=== PATIENT | female | born 1985 | race Caucasian/White ===

== ENCOUNTER 2023-01-20 11:39 | Outpatient (OUT) | payer MEDICAID, SELFPAY ==
--- NOTE | 2023-01-20 11:49 | US_ITS ---
[facility] [id number] Patient Name: RIVERA OWENS MRN: [id number] date: 1985 Sex: F Assigned Patient Location: LAB Current Patient Location: LAB Accession/Order Number: [id number] Exam Date: 01/20/2023 12:10 Report Date: 01/20/2023 15:07 At the request of: SMILEY URIAS Procedure: US venous doppler LE BI EXAMINATION: US venous doppler LE BI HISTORY: Edema R60.9, Hypomagnesemia E83.42 COMPARISON: No relevant comparison available. FINDINGS: REGION: Bilateral lower extremities THROMBI: None. COMPRESSIBILITY: Normal compressibility. FLOW: Normal waveform and antegrade flow between 5 and 20 cm/s. OTHER: None. US/US venous doppler LE BI IMPRESSION: 1. No deep vein thrombus within the right or left lower extremity. Electronically authenticated by: PASCUAL GAMBLE Date: 01/20/2023 15:07
[2023-01-20 13:10] LABS: Basophils Percent Auto 0.3 % (0.2-2.0); Eosinophils Percent Auto 0.1 % (0.9-7.0); Hematocrit 36.7 % (36.0-48.0); Hemoglobin 11.8 g/dL (12.0-16.0); Immature Granulocytes Abs Auto 0.02 10^3/uL (0.00-0.03); Immature Granulocytes Pct Auto 0.3 % (0.0-0.5); Lymphocytes Percent Auto 28.3 % (20.5-60.0); Mean Corpuscular HGB Conc 32.2 g/dL (29.9-35.2); Mean Corpuscular Hemoglobin 27.9 pg (26.7-34.0); Mean Corpuscular Volume 86.8 fL (81.0-99.0); Mean Platelet Volume 8.4 fL (9.5-13.5); Monocytes Absolute Auto 0.3 10^3/uL (0.3-0.8); Monocytes Percent Auto 4.1 % (1.7-12.0); Neutrophils Absolute Auto 4.8 10^3/uL (1.4-6.5); Neutrophils Percent Auto 66.9 % (43.0-75.0); Platelet Count 381 10^3/uL (150-450); Red Blood Count 4.23 10^6/uL (4.20-5.40); White Blood Count 7.1 10^3/uL (4.0-11.0)
[2023-01-20 14:35] LABS: Alanine Aminotransferase 18 U/L (14-59); Albumin Globulin Ratio 0.7; Albumin Level 3.3 g/dL (3.4-5.0); Alkaline Phosphatase 94 U/L (46-116); Aspartate Amino Transferase 13 U/L (15-37); BUN Creatinine Ratio 19.1; Bilirubin Total 0.1 mg/dL (0.2-1.0); Carbon Dioxide 28.3 mmol/L (21.0-32.0); Chloride 103 mmol/L (98-107); Estimated GFR (African America >60 (>=60); Estimated GFR (Non-African Ame >60 (>=60); Globulin 4.8 g/dL; Glucose 91 mg/dL (74-106); Potassium 4.3 mmol/L (3.5-5.1); Sodium 139 mmol/L (136-145); Total Protein 8.1 g/dL (6.4-8.2)
[2023-01-20 14:49] LABS: Estimated Average Glucose 117 mg/dL; Glycohemoglobin A1C 5.7 % (4.5-6.2)
[2023-01-20 14:51] LABS: Cholesterol 158 mg/dL (<=200); Free T3 2.12 pg/mL (2.18-3.98); HDL Cholesterol 53 mg/dL (40-60); Magnesium 2.1 mg/dL (1.8-2.4); Thyroid Stimulating Hormone 0.677 uIU/mL (0.358-3.740); Triglycerides 55 mg/dL (<=150)
[2023-01-21 11:23] LABS: Insulin 21.8 uIU/mL (2.6-24.9)
== END 2023-01-20 11:40 | disposition home or self-care (01) ==
LOC: LAB 11:43
PROVIDERS: PCP Family Medicine; Visit Provider Family Medicine
DX: E83.42 Hypomagnesemia (principal); R60.9 Edema, unspecified; L40.9 Psoriasis, unspecified; I10 Essential (primary) hypertension; R73.09 Other abnormal glucose
CPT/HCPCS: 36415; 80053; 80061; 83036; 83525; 83540; 83735; 83880; 84436; 84443; 84481; 85025; 93970

== ENCOUNTER 2023-03-06 12:54 | Outpatient (OUT) | payer MEDICAID, SELFPAY ==
[2023-03-06 13:39] LABS: Basophils Percent Auto 0.3 % (0.2-2.0); Eosinophils Absolute Auto 0.1 10^3/uL (0.0-0.7); Eosinophils Percent Auto 1.1 % (0.9-7.0); Hematocrit 39.8 % (36.0-48.0); Hemoglobin 12.9 g/dL (12.0-16.0); Immature Granulocytes Abs Auto 0.01 10^3/uL (0.00-0.03); Immature Granulocytes Pct Auto 0.2 % (0.0-0.5); Mean Corpuscular HGB Conc 32.4 g/dL (29.9-35.2); Mean Corpuscular Hemoglobin 28.8 pg (26.7-34.0); Mean Corpuscular Volume 88.8 fL (81.0-99.0); Mean Platelet Volume 8.3 fL (9.5-13.5); Monocytes Absolute Auto 0.4 10^3/uL (0.3-0.8); Monocytes Percent Auto 6.3 % (1.7-12.0); Neutrophils Absolute Auto 3.7 10^3/uL (1.4-6.5); Neutrophils Percent Auto 59.1 % (43.0-75.0); Platelet Count 288 10^3/uL (150-450); Red Blood Count 4.48 10^6/uL (4.20-5.40); Red Cell Distribution Width 12.6 % (11.0-15.0); White Blood Count 6.2 10^3/uL (4.0-11.0)
== END 2023-03-06 12:55 | disposition home or self-care (01) ==
LOC: LAB 12:56
PROVIDERS: PCP Family Medicine; Visit Provider Family Medicine
DX: E61.1 Iron deficiency (principal)
CPT/HCPCS: 36415; 82728; 83540; 85025

== ENCOUNTER 2023-04-27 12:33 | Outpatient (OUT) | payer OTHER, SELFPAY ==
--- NOTE | 2023-04-27 13:39 | PM.CN ---
Consult Note: HPI Data of Consult Patient: new to practice Consult date: 04/27/23 Requesting Physician: Fabián Archer MD Primary Care Provider: Yovani Echosl MD Consult Narrative Reason for consult: headaches Narrative: 37yof who presents for evaluation. 2 year history of headaches following fall at work. has had workup with neurologist, who determined that she had concussion and now has post-concussive symptoms. has tried various nsaids, with some benefit. currently on methadone and xanax. denies adverse med side effects. cc:: CC: Fabián Archer MD Meds Home Medications and Allergies Allergies Allergy/AdvReac Type Severity Reaction Status Date / Time azithromycin Allergy Unknown Verified 04/27/23 13:41 Exam Narrative Exam Narrative: Psych-alert and oriented x 3.? Attentive and appropriate, constitutionally normal, displays normal mood and affect per situation.? There are no obvious deficits in memory, reasoning, or intellect.? Skin-no obvious rashes, bruising, or erythema noted to the patient's area of pain. Extremities-upper extremities are warm with minimal edema and palpable pulses. Cervical- tenderness to palpation noted in the cervical spine and paraspinal musculature.? Pain is elicited with extension, and lateral rotation of the cervical spine.? Range of motion is slightly diminished due to pain. Coordination remains intact.? Gait remains non-antalgic. Assessment and Plan Assessment and Plan (1) Unspecified injury of head, initial encounter: Plan 37yoivan who presents for evaluation. failed physical and medical modalities, as noted. discussed that for her post-concussive symptoms, no block or injection would be warranted. suggested that she could try other conservative measures that she has not tried, including chiropractor, accupuncture, heat, ice, massage. she expressed understanding. medications reviewed. will have her trial gabapentin 300mg tid and celebrex 200mg bid prn. follow up in 6-8 weeks.
== END 2023-04-27 12:34 | disposition home or self-care (01) ==
LOC: PM 12:33
PROVIDERS: PCP Family Medicine; Visit Provider Anesthesiology
DX: S09.90XA Unspecified injury of head, initial encounter (principal)
CPT/HCPCS: G0463

== ENCOUNTER 2023-06-15 13:00 | Outpatient (OUT) | payer OTHER, SELFPAY ==
--- NOTE | 2023-06-15 13:31 | P.CN_ITS ---
Consult Note: HPI Data of Consult Patient: known to practice within the last 3 years Consult date: 06/15/23 Requesting Physician: Fabián Archer MD Primary Care Provider: Yovani Echols MD Consult Narrative Reason for consult: neck pain Narrative: 37yof who presents for assessment. Worsening neck pain that develops into headaches. No imaging available for review. Notes improvement with gabapentin and celebrex. Continues in provider directed home exercise course for >6 weeks. Denies adverse med side effects. cc:: CC: Fabián Archer MD Review of Systems ROS Status of ROS 10 or more systems reviewed and unremark able except as noted in history and below Meds Home Medications and Allergies Home Medications Medication Instructions Recorded Confirmed Type alprazolam 0.5 mg tablet (Xanax) 0.5 mg PO BID 04/27/23 04/27/23 History amitriptyline 25 mg tablet 25 mg PO DAILY 04/27/23 04/27/23 History celecoxib 200 mg capsule (Celebrex) 200 mg PO BID 04/27/23 04/27/23 History gabapentin 300 mg capsule 300 mg PO TID 04/27/23 04/27/23 History lisinopril 20 mg tablet 20 mg PO DAILY 04/27/23 04/27/23 History magnesium 200 mg tablet 400 mg PO DAILY 04/27/23 04/27/23 History methadone 10 mg/mL oral 50 mg PO DAILY 04/27/23 04/27/23 History concentrate (Methadose) potassium 20 meq PO BEDTIME 04/27/23 04/27/23 History ferrous sulfate 325 mg (65 mg 325 mg PO DAILY 06/15/23 06/15/23 History iron) tablet (Feosol) Allergies Allergy/AdvReac Type Severity Reaction Status Date / Time azithromycin Allergy Unknown Verified 04/27/23 13:41 Exam Narrative Exam Narrative: Psych-alert and oriented x 3.? Attentive and appropriate, constitutionally normal, displays normal mood and affect per situation.? There are no obvious deficits in memory, reasoning, or intellect.? Skin-no obvious rashes, bruising, or erythema noted to the patient's area of pain. Extremities-upper extremities are warm with minimal edema and palpable pulses. Cervical- tenderness to palpation noted in the cervical spine and paraspinal musculature.? Pain is elicited with extension, and lateral rotation of the cervical spine.? Range of motion is slightly diminished due to pain. Facet loading maneuvers are positive bilaterally.? Coordination remains intact.? Gait remains non-antalgic. Assessment and Plan Assessment and Plan (1) Cervicalgia: Plan 37yof who presents for assessment. Failed conservative measures. Will have her undergo cervical XR to assess initially. She is in agreement. She also is planning to start with chiropractor. Medications reviewed, no changes at this time. Follow up in 4 weeks.
== END 2023-06-15 13:01 | disposition home or self-care (01) ==
LOC: PM 13:00
PROVIDERS: PCP Family Medicine; Visit Provider Anesthesiology
DX: M54.2 Cervicalgia (principal)
CPT/HCPCS: G0463

== ENCOUNTER 2023-07-02 10:49 | Outpatient (OUT) | payer OTHER, SELFPAY ==
--- OUTSIDE RECORDS SUMMARY | 2023-07-02 10:56 | XMS_ITS | CCD ---
Author Name Unknown Address [address] [place] [address] Organization [facility] Care Team Providers Care Speech Language Therapist Name Role Phone VILLEGASEDSON PLASCENCIA Unavailable Unavailab SMILEY Dawkins Unavailable Unavailable PROVIDER, UNKNOWN Attending Unavailable PROVIDER, UNKNOWN Admitting Unavailable Smiley Urias MD Primary Care Provider [phone] Serafin Bartlett DO Unavailable Rolando Turner DO Unavailable Zehra Holly CNP Unavailable Rolando Turner Unavailable Smiley Urias MD Primary Care Provider [phone] Serafin Bartlett DO Unavailable Rolando Turner DO Unavailable [phone] Zehra Holly CNP Unavailable SMILEY URIAS Referring Unavailable SMILEY URIAS Primary Care Unavailable ANNE MARIE, RUFINO Attending Unavailable ANNE MARIE, RUFINO Admitting Unavailable HEATHER, CHAS Attending Unavailable SMILEY URIAS Primary Care Unavailable SMILEY URIAS Primary Care Unavailable HEATHER, CHAS Referring Unavailable SMILEY URIAS Primary Care Unavailable ZALE, CHAS Referring Unavailable ZALE, CHAS Attending Unavailable NUZHAT ARZOLA Admitting Unavailable BRIDGETT Burgos, DR REIS Primary Care Unavailable NUZHAT ARZOLA Attending Unavailable MAVIS, DR PASCUAL Lo Consulting Unavailable NUZHAT ARZOLA Consulting Unavailable BRIDGETT Burgos, DR REIS Admitting Unavailable BRIDGETT ., DR REIS Attending Unavailable BRIDGETT Burgos, DR REIS Consulting Unavailable BRIDGETT ., DR REIS Primary Care Unavailable ZIEBER, DR PASCUAL Lo Consulting Unavailable HOY ., DR REIS Admitting Unavailable HOY ., DR REIS Attending Unavailable HOY ., DR REIS Consulting Unavailable HOY ., DR REIS Primary Care Unavailable Smiley Calvillo Consulting Unavailable HOY ., DR REIS Admitting Unavailable HOY ., DR REIS Attending Unavailable HOY ., DR REIS Consulting Unavailable HOY ., DR REIS Primary Care Unavailable UPLAND, DR JENNY Barbosa Consulting Unavailable HOY ., DR REIS Admitting Unavailable HOY ., DR REIS Attending Unavailable HOY ., DR REIS Consulting Unavailable HOY ., DR REIS Primary Care Unavailable ZIEBER, DR PASCUAL Lo Consulting Unavailable HOY ., DR REIS Admitting Unavailable HOY ., DR REIS Attending Unavailable HOY ., DR REIS Primary Care Unavailable HOY ., DR REIS Primary Care Unavailable ROLANDO TURNER Admitting Unavailable ROLANDO TURNER Attending Unavailable PRETTY BEST Admitting Unavailable BRIDGETT ., DR REIS Primary Care Unavailable PRETTY BEST Attending Unavailable PRETTY BEST Consulting Unavailable CANDICE PONCE Consulting Unavailable CAROLE PONCE Attending Unavailable JENNY HOLLEY Attending Unavailable JENNY HOLLEY Attending Unavailable PASCUAL URIBE Attending Unavailable EBHEIM, RUFINO Attending Unavailable JENNY HOLLEY Attending Unavailable EBRAHEIM, RUFINO Attending Unavailable MARISA CARTER Attending Unavailable SUMIT BAPTISTE Referring Unavailable PARRISH MCDONOUGH Attending Unavailabl e EBHEIM, RUFINO Referring Unavailable JENNY HOLLEY Admitting Unavailable JENNY HOLLEY Attending Unavailable PASCUAL URIBE Attending Unavailable PASCUAL URIBE Attending Unavailable PASCUAL URIBE Attending Unavailable PASCUAL URIBE Attending Unavailable EBRAHEIM, RUFINO Referring Unavailable EBRAHEIM, RUFINO Referring Unavailable MARISA CARTER Attending Unavailable KHANG BORRERO Referring Unavailable Gianni QUARLES, Fabián Allen Attending Unavailable Gianni QUARLES, Fabián Allen Attending Unavailable Luiz Knight Attending Unavailab Luiz Brennan Admitting Unavailab Smiley Dawkins Primary Care Unavailable Allergies Allergy Classification Reported Allergen(s) Allergy Type Date of Onset Reaction(s) Facility (7 sources) Erythromycin; Translations: [ERYTHROMYCIN] Drug Allergy 2 anaphylaxis [facility] Repository (1 source) Erythromycin Drug Allergy 0 [facility] Repository (1 source) Erythromycin Drug Allergy 1 [facility] Repository (1 source) Erythromycin; Translations: [ERYTHROMYCIN LACTOBIONATE] Drug Allergy 2 [facility] Repository (1 source) ALLERGIES NOT ON FILE; Translations: [ALLERGIES NOT ON FILE] Propensity to adverse reactions (disorder) [facility] Repository (1 source) Azithromycin Drug Allergy 1 [facility] Repository Medications Current Medications Medication Drug Class(es) Dates Sig (Normalized) Sig (Original) Cane - (6 sources) Start: 06-12-2021 Cane - as dire cted May, Active Magnesium (8 sources) Magnesium Active Potassimin (8 sources) Potassimin Activ e Completed/Discontinued Medications Medication Drug Class(es) Dates Sig (Normalized) Sig (Original) ALPRAZolam 0.5 mg oral tablet (15 sources) Benzodiazepine Start: 10-31-2021 take 1 tablet by mouth twice daily as needed for anxiety ALPRAZolam (XANAX) 0.5 mg tablet TAKE 1 TABLET BY ORAL ROUTE 2 TIMES PER DAY NEEDED FOR ANXIETY 0 10/31/2021 Active take 1 tablet by kael th every twelve hours Xanax 1 MG 1 tablet Orally Twice a day Active End: 11-12-2021 take 2 tablets by mouth every eight hours as needed ALPRAZolam (XANAX) 1 mg tablet Take 2 mg by mouth three times daily as needed. 0 11/12/2021 Discontinued Comment on above: Take 2 mg by mouth t hree times daily as needed. TAKE 1 TABLET BY ORA L ROUTE 2 TIMES PER DAY NEEDED FOR ANXIETY amitriptyline hydrochloride 100 mg oral tablet (2 sources) Tricyclic Antidepressant End: 11-12 take 1 tablet by mouth once daily at bedtime amitriptyline (ELAVIL) 100 mg tablet Take 100 mg by mouth daily at bedtime. 0 11/12/2021 Discontinued Comment on above: Take 100 mg by mouth daily at bedtime. carvedilol 25 mg oral tablet (2 sources) alpha-Adrenergic Jose De Jesus, beta-Adrenergic Jose De Jesus Start : 10-06 End: 11-12 take 1 tablet by mouth twice daily carvedilol (COREG) 25 mg tablet Take 1 tablet by mouth twice daily. 180 tablet 3 10/06/2014 11/12/2021 Discontinued Comment on above: Take 1 tablet by kael twice daily. cloNIDine hydrochloride 0.1 mg oral tablet (2 sources) Central alpha-2 Adrenergic Agonist Start : 04-06 End: 11-12 take 1 tablet by mouth three times daily cloNIDine HCl (CATAPRES) 0.1 mg tablet Take 1 tablet by mouth three times daily. 240 tablet 3 04/06/2015 11/12/2021 Discontinued Comment on above: Take 1 tablet by kael three times daily. hydrALAZINE hydrochloride 50 mg oral tablet (2 sources) Arteriolar Vasodilator Start : 10-06 End: 11-12 take 1 tablet by mouth twice daily hydrALAZINE (APRESOLINE) 50 mg tablet Take 1 tablet by mouth twice daily. 180 tablet 3 10/06/2014 11/12/2021 Discontinued Comment on above: Take 1 tablet by kael twice daily. hydroCHLOROthiazide 12.5 mg oral capsule (2 sources) Thiazide Diuretic Start : 05-18 End: 11-12 take 1 capsule by mouth once daily Hydrochlorothiazide 12.5 mg capsule Take 1 capsule by mouth once daily. 30 capsule 5 05/18/2015 11/12/2021 Discontinued Comment on above: Take 1 capsule by mo [facility] once daily. hydroCHLOROthiazide 12.5 mg / irbesartan 300 mg oral tablet (2 sources) Thiazide Diuretic, Angiotensin 2 Receptor Jose De Jesus Start : 10-06 End: 11-12 take 1 tablet by mouth once daily Irbesartan-Hydrochloroth iazide 300-12.5 mg per tablet Take 1 tablet by mouth once daily. 90 tablet 3 10/06/2014 11/12/2021 Discontinued Comment on above: Take 1 tablet by kael once daily. lisinopril 20 mg oral tablet (13 sources) Angiotensin Converting Enzyme Inhibitor Start : 10-30 take 1 tablet by mouth once daily lisinopril (ZESTRIL, PRINIVIL) 20 mg tablet Take 20 mg by mouth once daily. 0 10/30/2021 Active Comment on above: Take 20 mg by mouth once daily. magnesium oxide 400 mg oral tablet (5 sources) Start : 10-30 take 1 tablet by mouth twice daily magnesium oxide (MAG-OX) 400 mg (241.3 mg magnesium) tablet Take 1 tablet by mouth twice daily. 0 10/30/2021 Active Comment on above: Take 1 tablet by kael th twice daily. Methadone (13 sources) Opioid Agonist take 52 mg by mouth once daily Methadone HCl 10 MG/5ML 52mg p.o. qd Active take 52 mg by mouth once daily m ethadone HCl (METHADONE ORAL) Take 52 mg by mouth once daily. 0 Active Methadone HCl Ac tive Comment on above: Take 52 mg by mouth once daily. morphine sulfate 30 mg extended release oral capsule (2 sources) Opioid Agonist End: take 1 capsule by mouth three times daily morphine ER (LUANA) 30 mg 24 hr capsule Take 30 mg by mouth three times daily. 0 11/12/2021 Discontinued Comment on above: Take 30 mg by mouth three times daily. OXcarbazepine 150 mg oral tablet (2 sources) Anti-epileptic Agent End: take 1 tablet by mouth twice daily OXcarbazepine (TRILEPTAL) 150 mg tablet Take 150 mg by mouth twice daily. 0 11/12/2021 Discontinued Comment on above: Take 150 mg by mouth twice daily. oxyCODONE hydrochloride 20 mg oral tablet (2 sources) Opioid Agonist End: take 1 tablet by mouth four times daily oxyCODONE 20 mg tab Take 20 mg by mouth four times daily. 0 11/12/2021 Discontinued Comment on above: Take 20 mg by mouth four times daily. pantoprazole 40 mg delayed release oral tablet (2 sources) Proton Pump Inhibitor End: take 1 tablet by mouth once daily pantoprazole DR (PROTONIX) 40 mg tablet Take 40 mg by mouth once daily. 0 11/12/2021 Discontinued Comment on above: Take 40 mg by mouth once daily. 100 ml potassium chloride 0.2 meq/ml injection (5 sources) potassium chlori de in water 20 mEq/100 mL IVPB Inject 20 mEq intravenously one time only. 0 Active Comment on above: Inject 20 mEq intrav enously one time only. promethazine hydrochloride 25 mg oral tablet (2 sources) Phenothiazine End: take 1 tablet by mouth every six hours as needed promethazine (PHENERGAN) 25 mg tablet Take 25 mg by mouth every 6 hours as needed. 0 11/12/2021 Discontinued Comment on above: Take 25 mg by mouth every 6 hours as needed. spironolactone 50 mg oral tablet (2 sources) Aldosterone Antagonist Start: End: take 1 tablet by mouth once daily spironolactone (ALDACTONE) 50 mg tablet Take 1 tablet by mouth once daily. 90 tablet 3 10/06/2014 11/12/2021 Discontinued Comment on above: Take 1 tablet by kael th once daily. tiZANidine 4 mg oral tablet (2 sources) Central alpha-2 Adrenergic Agonist End: take 1 tablet by mouth every six hours as needed tiZANidine (ZANAFLEX) 4 mg tablet Take 4 mg by mouth every 6 hours as needed. 0 11/12/2021 Discontinued Comment on above: Take 4 mg by mouth e very 6 hours as needed. traMADol hydrochloride 50 mg oral tablet (2 sources) Opioid Agonist End: take 50 mg by mouth four times daily TRAMADOL HCL (TRAMADOL ORAL) Take 50 mg by mouth four times daily. 0 11/12/2021 Discontinued Comment on above: Take 50 mg by mouth four times daily. triamcinolone acetonide 40 mg/ml injectable suspension (2 sources) Corticosteroid Start: Kenalog-40 October, 40 mg Problems Active Problems Problem Classification Problem Date Documented Date Episodic/Chronic Abdominal pain (1 source) Unspecified abdominal pain; Translations: [UNSPECIFIED ABDOMINAL PAIN] Onset: 08-27-2022 Episodic Anxiety disorders (2 sources) Generalized anxiety disorder; Translations: [Anxiety disorder, unspecified] Onset: 08-13-2017 Chronic Disorders of lipid metabolism (1 source) Hyperlipidemia, unspecified; Translations: [HYPERLIPIDEMIA UNSPECIFIED] Onset: 04-23-2022 Chronic Essential hypertension (9 sources) Hypertensive disorder; Translations: [Essential (primary) hypertension] Onset: 04-23-2022 09-29-2014 Chronic Hypertension with complications and secondary hypertension (1 source) Hypertensive urgency; Translations: [HYPERTENSIVE URGENCY] Onset: 04-23-2022 Chronic Malaise and fatigue (6 sources) Fatigue; Translations: [Other fatigue] 09-29-2014 Episodic Mood disorders (1 source) Major depressive disorder, single episode, unspecified; Translations: [MANDEEP DEPRESS D/O SINGLE EPIS UNS] Onset: 09-10-2021 Chronic Other bone disease and musculoskeletal deformities (2 sources) Chondromalacia, left knee; Translations: [Chondromalacia, left knee] Onset: 09-15-2022 Episodic Other congenital anomalies (2 sources) Discoid meniscus; Translations: [Discoid meniscus] Onset: 09-15-2022 Chronic Other connective tissue disease (3 sources) Weakness of right leg; Translations: [Other symptoms and signs involving the musculoskeletal system] Episodic Other connective tissue disease (1 source) Other symptoms and signs involving the musculoskeletal system; Translations: [Right leg weakness] Onset: 01-23-2022 Episodic Other endocrine disorders (6 sources) Adrenal mass; Translations: [Other specified disorders of adrenal gland] Onset: 05-18-2015 05-18-2015 Chronic Other nutritional; endocrine; and metabolic disorders (1 source) Hypomagnesemia; Translations: [HYPOMAGNESEMIA] Onset: 04-23-2022 Chronic Other nutritional; endocrine; and metabolic disorders (2 sources) Obesity, unspecified; Translations: [Obesity, unspecified] Onset: 08-06-2022 Chronic Residual codes; unclassified (6 sources) Obstructive sleep apnea syndrome; Translations: [Obstructive sleep apnea (adult) (pediatric)] 09-29-2014 Chronic Residual codes; unclassified (4 sources) Sleep apnea, unspecified; Translations: [SLEEP APNEA UNSPECIFIED] Onset: 04-18-2022 Chronic Residual codes; unclassified (2 sources) Other specified postprocedural states; Translations: [Other specified postprocedural states] Onset: 02-23-2023 Episodic Unclassified (1 source) Concussion with loss of consciousness status unknown, subsequent encounter; Translations: [Concussion with loss of consciousness status unknown, subsequent encounter] Onset: 04-17-2022 Urinary tract infections (4 sources) Urinary tract infection, site not specified; Translations: [UTI SITE NOT SPECIFIED] Onset: 08-22-2022 Episodic Past or Other Problems Problem Classification Problem Date Documented Date Episodic/Chronic Deficiency and other anemia (1 source) Anemia, unspecified; Translations: [ANEMIA UNSPECIFIED] Onset: 04-23-2022 Episodic Diabetes mellitus without complication (1 source) Other abnormal glucose; Translations: [OTHER ABNORMAL GLUCOSE] Onset: 04-23-2022 Episodic Disorders of teeth and jaw (1 source) Other specified disorders of teeth and supporting structures; Translations: [OTH SPEC DISORDERS TEETH SUPP STRCT] Onset: 09-10-2021 Episodic Intracranial injury (6 sources) Concussion without loss of consciousness, initial encounter; Translations: [Unspecified intracranial injury without loss of consciousness, initial encounter] Onset: 04-01-2022 Episodic Nonmalignant breast conditions (4 sources) Disorder of breast, unspecified; Translations: [DISORDER OF BREAST UNSPECIFIED] Onset: 01-22-2022 Episodic Nonspecific chest pain (11 sources) Other chest pain; Translations: [Chest pain] Onset: 08-13-2017 09-29-2014 Episodic Other aftercare (1 source) Other [facility] (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 therapy; Translations: [OTH [facility] CURRENT DRUG THERAPY] Onset: 09-10-2021 Episodic Other connective tissue disease (1 source) Pain in left arm; Translations: [PAIN IN LEFT ARM] Onset: 04-23-2022 Episodic Other injuries and conditions due to external causes (2 sources) Unspecified injury of head, subsequent encounter; Translations: [Unspecified injury of head, subsequent encounter] Onset: 04-30-2022 Episodic Other injuries and conditions due to external causes (2 sources) Unspecified injury of head, initial encounter; Translations: [Unspecified injury of head, initial encounter] Onset: 04-30-2022 Episodic Other non-traumatic joint disorders (6 sources) Pain in left knee; Translations: [PAIN IN LEFT KNEE] Onset: 01-31-2022 Episodic Other screening for suspected conditions (not mental disorders or infectious disease) (1 source) Encounter for screening for malignant neoplasm of rectum; Translations: [ENC SCREEN MALIG NEOPLASM RECTUM] Onset: 04-23-2022 Episodic Residual codes; unclassified (1 source) Acquired absence of other specified parts of digestive tract; Translations: [ACQ ABSENCE OTH PART DIGESTV TRACT] Onset: 09-10-2021 Episodic Sprains and strains (7 sources) Sprain of unspecified site of right knee, initial encounter; Translations: [Sprain of unspecified site of right knee, subsequent encounter] Onset: 09-18-2021 Resolved: 01-01-2022 Episodic Superficial injury; contusion (8 sources) Contusion of right knee, initial encounter; Translations: [Contusion of right knee, subsequent encounter] Onset: 04-17-2021 Resolved: 01-01-2022 Episodic Unclassified (1 source) Concussion with loss of consciousness status unknown, subsequent encounter; Translations: [Concussion with loss of consciousness status unknown, subsequent encounter] Onset: 04-17-2022 Results Test Name Value Interpretation Reference Range Facility 3603-06-2023 36 I dictated a letter simply stating patient remains off work and will remain off for 1 month . This letter is for [employer] because her children gets medical benefits. Patient was sent the letter. [facility] 3603-05-2023 36 Patient states she received a note for work but she needs a note stating she is off work. Please email if MD writes she states it is for [employer] family [employer] and she states that is what they need. [facility] Follow-Upon 03-04-2023 Follow-Up [id number] Rebecca Jewell 1985 F Date Provider Department Center 03/04/2023 PASCUAL HOPKINS MP PHYS MED Medical [facility]avi No family history on file Level of Service:63546 [place] OFFICE/OUTPATIENT ESTABLISHED LOW MDM 20-29 MIN (GC) Reason for Visit and Comments: Concussion [357203] - [facility] Office Visiton 02-23-2023 Follow-up visit [id number] Rebecca Jewell 1985 F Date Provider Department Center 02/23/2023 JENNY MARAVILLA MP ORTHO MPORTHO No family history on file Level of Service:48473 [place] POSTOP FOLLOW UP VISIT RELATED TO ORIGINAL PX (GC) Reason for Visit and Comments: Pain [136] Follow-up [707454] [facility] Office Visiton 01-12-2023 Follow-up visit [id number] Rebecca Jewell 1985 F Date Provider Department Center 01/12/2023 JENNY MARAVILLA MP ORTHO MPORTHO No family history on file Level of Service:23856 [place] POSTOP FOLLOW UP VISIT RELATED TO ORIGINAL PX (GC) Reason for Visit and Comments: Post-op [483] Normal [facility] Orders Onlyon 01-08-2023 Orders Only [id number] Rebecca Jewell 1985 F Date Provider Department Center 01/08/2023 SHRUTHI TORREZ MP ORTHO MPORTHO No family history on file Normal [facility] OPNOTEon 01-01-2023 OPNOTE KNEE ARTHROSCOPY WIT H PARTILA LATERAL MENISCECTOMY (L), CHONDROPLASTY (L) Operative Note Date: 01/01/2023 Location: [facility] OR Name: Nabila Jewell, : 1985, Diagnosis Pre-op Diagnosis * Discoid meniscus of left knee [Q68.6] Post-op Diagnosis * Discoid meniscus of left knee [Q68.6] Procedures KNEE ARTHROSCOPY WITH PARTILA LATERAL MENISCECTOMY 97825 - [place] ARTHRS KNE SURG W/MENISCECTOMY MED/LAT W/SHVG CHONDROPLASTY Surgeons * Jenny Holley - Primary Procedure Summary Anesthesia: General ASA: III Estimated Blood Loss: 5 mL Total IV Fluids: mL Drains: * None in log * Staff: Selling Underwriter: Kristen Lai RN Scrub Person: Jordan Lucero CST Indications: Nabila Jewell is an 37 y.o. female who is having surgery for Discoid meniscus of left knee [Q68.6]. Procedure Details: The patient was seen in the preoperative area. The risks, benefits, complications, treatment options, non-operative alternatives, expected recovery and outcomes were discussed with the patient. The possibilities of reaction to medication, pulmonary aspiration, injury to surrounding structures, bleeding, recurrent infection, the need for additional procedures, failure to diagnose a condition, and creating a complication requiring transfusion or operation were discussed with the patient. The patient concurred with the proposed plan, giving informed consent. The site of surgery was properly noted/marked if necessary per policy. The patient has been actively warmed in preoperative area. Preoperative antibiotics have been ordered and given within 1 hours of incision. Venous thrombosis prophylaxis have been ordered including unilateral sequential compression device Findings: After confirmation and marking of the left knee in the preoperative holding area, patient was brought back to the operating suite and placed in the supine position. All pressure points were adequately padded. General endotracheal anesthesia was smoothly induced preoperative antibiotics were administered. After observation of a surgical timeout procedure using 2 separate patient identifiers, we began with the case. After sterile prep and draping of the knee we first started with infiltrating the knee itself and the proposed incisions with 20 cc 1% lidocaine with epinephrine. We then created a standard arthroscopy portals. There was synovitis in the medial, lateral compartments. There was synovitis in the patellofemoral compartment. All synovitis was cleared out. A probe was inserted and we began with a diagnostic arthroscopy. We first inspected the medial compartment. We inspected the medial meniscus and the articular cartilage surfaces. Medial meniscus was intact. Cartilage was not intact. There was a grade 2 tear measuring 3 mm. The cartilage was treated with gentle chondroplasty We then inspected the intercondylar notch. The ACL was intact. The PCL was intact. We then inspected the lateral compartment. We inspected the lateral meniscus and the articular cartilage surfaces. Lateral meniscus was not intact. There was a radial tear of the middle body, 3 mm. Cartilage was intact. The meniscus was debrided back to the level of stable tissue. We then inspected the patellofemoral compartment. The patella and trochlea were inspected and the articular cartilage was probed. The patellar cartilage was not intact. There was a grade 2 tear measuring 5 mm. The trochlear cartilage was not intact. There was a grade 2 tear measuring 8 mm. The cartilage was treated with gentle chondroplasty At this point all instruments were removed and the knee was drained of fluid. The portal incisions were closed with simple Steri-Strips. A sterile compressive wrap was applied. Patient was then awakened and extubated and brought back to the PACU in stable condition. I was present scrubbed and actively participating for all mc portions of the surgery. Estimated blood loss is minimal complications are none disposition is to the PACU in stable condition postoperative plan. I will see them back in 10 to 14 days time for suture removal and initiation of physical therapy Complications: None; patient tolerated the procedure well. Disposition: PACU - hemodynamically stable. Condition: stable Jenny Holley Normal [facility] POCT GLUCOSE METER UNSOLICIT ED RESULTSon 01-01-2023 Glucose [Mass/Vol] 93 mg/dL Normal 70-105 [facility] Comment on above: Order Comment: Waive d Testing in the ED is performed under the ED CLIA certificate #[id number]. Result Comment: ngro andrew Performed By: #### L [id number] ####[facility] ([facility])[address] [place] [address] HPon 12-31-2022 HP History Of Present Illness Nabila Jewell is a 37 y.o. female presenting with L knee chondromalacia and tear of discoid LM. Past Medical History She has a past medical history of Adrenal adenoma, Anxiety, Carbuncle of back except buttock, Chronic pain syndrome, Degeneration of intervertebral disc of cervical region, Discoid meniscus of left knee, Dysmenorrhea, Eczema, Fatigue, Furuncle of abdominal wall, Head injury, Hypertension, Non-cardiac chest pain, Obesity, Psoriasis, and Sleep apnea. Surgical History She has a past surgical history that includes Gallbladder surgery; Tympanostomy tube placement (Bilateral); section, classic; Dilation and curettage of uterus; Pilonidal cyst drainage; and Cyst Removal. Social History She reports that she quit smoking about 3 years ago. Her smoking use included cigarettes. She has never used smokeless tobacco. She reports that she does not currently use alcohol. She reports that she does not currently use drugs. Family History No family history on file. Allergies Erythromycin and Erythromycin lactobionate Medications No medications prior to admission. Review of Systems Last Recorded Vitals Visit Vitals OB Status Unknown Smoking Status Former Physical Exam Relevant Lab Results Lab Results Component Value Date CO2 07/27/2019 BUN 14 07/27/2019 CALCIUM 8.9 07/27/2019 EGFR >60 07/27/2019 EGFR >60 07/27/2019 Relevant Imaging Results XR transfer of outside films This order has been auto-finalized and does not contain a result. 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 NO JEWELRY BRING INS AND ID Take the meds we spoke about w/a sip of water DOS: ALL NORMAL AM MEDS ARRIVE AT [facility] Normal [facility] Documentationon 12-09-2022 Documentation [id number] Rebecca Jewell 1985 F Date Provider Department Center 12/09/2022 PARRISH STOVER MP DIETARY Medical Pavi Chart Close Cosign Required by: Samir Mendoza MD[[id number]] No family history on file [facility] 36on 12-03-2022 36 [employer] Cici from [facility] calls to state the last note sent with the [employer] has a statement that patient can work 4 hours per day 20 hours per week but [employer] sent yesterday did not have any thing listed but patient states there were no changes and she is still to be off work. I pulled up [employer] sent in by magazine writer and I had forgotten to check the no changes box. In same note it does state by MD patient is not working and will be evaluated upon next ov. I informed her of the error and she requested I resend with the no changes box checked. Form was reprinted and faxed back. [facility] 36 Patient calls to sta deana her MCO is stating she will need to work 4 hours now and she states she was just in on Thursday and that was not discussed by MD. I informed her that there was no change to the [employer] 14 it was the same as the one completed in September and June this year. She states I didn't think so she will call the [employer] back. [facility] Telephoneon 12-03-2022 Telephone [id number] Rebecca Jewell 1985 Date Provider Department Center 12/03/2022 PASCUAL HOPKINS MP PHYS MED Medical Pavi No family history on file [facility] Follow-Upon 12-01-2022 Follow-Up [id number] Taj Jewellvenancio Esparza 1985 Date Provider Department Center 12/01/2022 PASCUAL HOPKINS MP PHYS MED Medical Pavi No family history on file Level of Service:[id number] [place] OFFICE/OUTPATIENT ESTABLISHED LOW MDM 20-29 MIN (GC) Reason for Visit and Comments: headaches [Other] - [facility] Follow-Upon 09-29-2022 Follow-Up [id number] Taj Jewellvenancio Esparza 1985 F Date Provider Department Center 09/29/2022 PASCUAL HOPKINS MP PHYS MED Medical Pavi No family history on file Level of Service:09616 [place] OFFICE/OUTPATIENT ESTABLISHED LOW MDM 20-29 MIN Reason for Visit and Comments: headaches [Other] Leg Pain [[id number]] - Right Normal [facility] Orders Onlyon 09-29-2022 Orders Only [id number] Taj Jewellvenancio Esparza 1985 F Date Provider Department Center 09/29/2022 PASCUAL HOPKINS MP PHYS MED Medical Pavi No family history on file Normal [facility] Office Visiton 09-15-2022 Follow-up visit [id number] Taj Jewellvenancio Esparza 1985 Provider Department [place] 09/15/2022 JENNY MARAVILLA MP ORTHO MPORTHO No family history on file Level of Service:38522 [place] OFFICE/OUTPATIENT ESTABLISHED MOD MDM 30-39 MIN (57) Reason for Visit and Comments: Pain [136] Normal [facility] CULTURE URINEon 08-22-2022 CULTURE URINE Culture Observations : MODERATE GROWTH OF MIXED GENITAL GISELLE. NO POTENTIAL PATHOGENS SEEN. Normal [facility] [place] [facility] Comment on above: Performed By: #### T SH, LIPID, CMP, URIC, T7, CRP #### [facility] [place] [facility] [address] [place] [address] Dr. Walker Gabriel UA RANDOM W/MICROSCOPICon BACTERIA MODERATE Abnormal NONE SEEN [facility] [place] [facility] Comment on above: Performed By: #### U AMIC #### [facility] [place] [facility] [address] [address] [address] Walker Gabriel Bilirubin Ql (U) Negative Normal NEGATIVE [facility] Comment on above: Performed By: #### U AMIC #### [facility] [place] [facility] [address] [address] [address] Walker Gabriel CAST NONE SEEN Normal NONE SEEN [facility] [place] [facility] Comment on above: Performed By: #### U AMIC #### [facility] [place] [facility] [address] [place] [address] Dr. Walker Gabriel Clarity (U) CLEAR Normal CLEAR [facility] [place] [facility] Comment on above: Performed By: #### U AMIC #### [facility] [place] [facility] [address] [address] [address] Walker Gabriel Color (U) YELLOW Normal YELLOW [facility] Comment on above: Performed By: #### U AMIC #### [facility] [place] [facility] [address] [address] [address] Walker Gabriel Crystals LM Nom (Urine sed) NONE SEEN Normal NONE SEEN [facility] Comment on above: Performed By: #### U AMIC #### [facility] [place] [facility] [address] [address] [address] Walker Gabriel Epithelial cells LM Ql (Urine sed) FEW Abnormal NONE SEEN /RARE [facility] [place] [facility] Comment on above: Performed By: #### U AMIC #### [facility] [place] [facility] [address] [place] [address] Dr. Walker Gabriel Glucose Ql (U) Negative Normal NEGATIVE [facility] Comment on above: Performed By: #### U AMIC #### [facility] [place] [facility] [address] [address] [address] Walker Gabriel Hemoglobin Ql (U) TRACE-LYSED Abnormal NEGATIVE [facility] Comment on above: Performed By: #### U AMIC #### [facility] [place] [facility] [address] [place] [address] Dr. Walker Gabriel Ketones Ql (U) Negative Normal NEGATIVE [facility] Comment on above: Performed By: #### U AMIC #### [facility] [place] [facility] [address] [address] [address] Walker Gabriel LEUKOCYTES Negative Normal NEGATIVE [facility] Comment on above: Performed By: #### U AMIC #### [facility] [place] [facility] [address] [address] [address] Walker Gabriel MUCOUS NONE SEEN Normal NONE SEEN [facility] Comment on above: Performed By: #### U AMIC #### [facility] [place] [facility] [address] [place] [address] Dr. Walker Gabriel Nitrite Ql (U) Negative Normal NEGATIVE [facility] Comment on above: Performed By: #### U AMIC #### [facility] [place] [facility] [address] [place] [address] Dr. Walker Gabriel pH (U) 6.0 [pH] Normal 5-9 [facility] [place] [facility] Comment on above: Performed By: #### U AMIC #### [facility] [place] [facility] [address] [address] [address] Walker Gabriel RBC 0-2 Normal 0-2 [facility] Comment on above: Performed By: #### U AMIC #### [facility] [place] [facility] [address] [place] [address] Dr. Walker Gabriel SPEC GRAVITY >=1.030 Abnormal 1.005-<=1.025 [facility] Comment on above: Performed By: #### U AMIC #### [facility] [place] [facility] [address] [place] [address] Dr. Walker Gabriel UA PROTEIN Negative Normal NEGATIVE/ TRACE [facility] [place] [facility] Comment on above: Performed By: #### U AMIC #### [facility] [place] [facility] [address] [place] [address] Dr. Walker Gabriel Urobilinogen Qn (U) 0.2 {Natalie'U}/dL Normal 0.2 - 1. 0 [facility] Comment on above: Performed By: #### U AMIC #### [facility] [place] [facility] [address] [place] [address] Dr. Walker Gabriel WBC 2-5 Abnormal NONE SEEN [facility] [place] [facility] Comment on above: Performed By: #### U AMIC #### [facility] [place] [facility] [address] [place] [address] Dr. Walker Gabriel XR KUB 1 VIEWon 08-22-2022 XR KUB 1 VIEW EXAMINATION: XR KUB 1 VIEW HISTORY: Left flank pain COMPARISON: No relevant comparison available. FINDINGS: KIDNEY/URETER - RIGHT: No visible renal or ureteral calcifications. KIDNEY/URETER - LEFT: No visible renal or ureteral calcifications. PELVIS: No visible ureteral stones. BOWEL: No abnormal dilation or deviation. BONES: No acute abnormality. OTHER: Negative. No abnormal gaseous collections. IMPRESSION: 1. No appreciable urinary tract calculi. Electronically authenticated by: PASCUAL GAMBLE Date: 2022-08-22 12:42 Normal [facility] [place] [facility] Follow-Upon 08-21-2022 Follow-Up [id number] Rebecca Jewell M 1985 Provider Department [place] 08/21/2022 Lupe-CAROLE PONCE MP ORTHO MPORTHO No family history on file Level of Service:50133 [place] OFFICE/OUTPATIENT ESTABLISHED LOW MDM 20-29 MIN Reason for Visit and Comments: Pain [136] [facility] Clinical Supporton Clinical Support [id number] Rebecca Jewell M 1985 [facility] Provider Department [place] 08/06/2022 PARRISH STOVER MP DIETARY Medical Pavi Chart Close Cosign Required by: Samir Mendoza MD[[id number]] No family history on file Reason for Visit and Comments: Obesity [[id number]] Hypertension [951426] [facility] Erroneous Encounteron 2022 Erroneous Encounter [id number] Rebecca Jewell M 1985 [facility] 08/06/2022 PARRISH STOVER MP DIETARY Medical Pavi No family history on file Reason for Visit and Comments: Error (VOID this visit) [77] [facility] Documentationon 07-31-2022 Documentation [id number] Rebecca Jewell M 1985 [facility] 07/31/2022 PARRISH STOVER [facility] [place] [facility] C Chart Close Cosign Required by: Samir Mendoza MD[[id number]] No family history on file [facility] Follow-Upon 07-02-2022 Follow-Up [id number] Rebecca Jewell M 1985 [facility] Department [place] 07/02/2022 PASCUAL HOPKINS MP PHYS MED Medical Pavi No family history on file Level of Service:13619 [place] OFFICE/OUTPATIENT ESTABLISHED MOD MDM 30-39 MIN Reason for Visit and Comments: Headache [52] Leg Pain [[id number]] - Right [facility]illon 05-28-2022 Refill [id number] Rebecca Jewell ey M 1985 Provider Department [place] 05/28/2022 PASCUAL HOPKINS MP PHYS MED Medical Pavi No family history on file Reason for Visit and Comments: Med Refill [[id number]] Normal [facility] Follow-Upon 05-15-2022 Follow-Up [id number] Rebecca Jewell M 1985 F Date Provider Department Center 05/15/2022 RUFINO DICKERSON MP ORTHO MPORTHO Chart Close Cosign Required by: Rufino Perdomo MD[[id number]] No family history on file Level of Service:24905 [place] OFFICE/OUTPATIENT ESTABLISHED LOW MDM 20-29 MIN (GC) Reason for Visit and Comments: Follow-up [016314] - Follow up on left knee pain. [facility] Follow-Upon 04-30-2022 Follow-Up [id number] Rebecca Jewell M 1985 F Date Provider Department Center 04/30/2022 PASCUAL HOPKINS MP PHYS MED Medical Pavi No family history on file Level of Service:08216 [place] OFFICE/OUTPATIENT ESTABLISHED MOD MDM 30-39 MIN (GC) Reason for Visit and Comments: headaches [Other] [facility] DARIO by IFAon 04-21-2022 Antinuclear Antibodies, IFA Negative Normal [facility] Comment on above: Result Comment: Nega tive <1:80 Borderline 1:80 Positive >1:80 ICAP nomenclature: AC-0 For more information about Hep-2 cell patterns use ANApatterns.org, the official website for the International Consensus on Antinuclear Antibody (DARIO) Patterns (ICAP). Performed By: #### T SH, LIPID, CMP, URIC, T7, CRP #### [facility] [place] [facility] [address] [address] [address] Walker Gabriel SLE PROFILE Aon 04-21-2022 Anti-DNA (DS) Ab Qn 3 IU/mL Normal 0-9 [facility] Comment on above: Result Comment: Nega tive <5 Equivocal 5 - 9 Positive >9 Performed By: #### S JUSTO #### [facility] [place] [facility] [address], [place] [address] Dr. Walker Gabriel Antichromatin Antibodies <0.2 Normal 0.0-0.9 [facility] Comment on above: Performed By: #### S JUSTO #### [facility] [place] [facility] [address] [address] [address] Walker Gabriel RA Latex Turbid. <10.0 Normal <14.0 [facility] Comment on above: Performed By: #### S JUSTO #### [facility] [place] [facility] [address] [address] [address] Walker Gabriel EKG MANAGER Antibodies <0.2 Normal 0.0-0.9 [facility] Comment on above: Performed By: #### S JUSTO #### [facility] [place] [facility] [address] [place] [address] Dr. Walker Gabriel Sjogren's Anti-SS-A <0.2 Normal 0.0-0.9 [facility] Comment on above: Performed By: #### S JUSTO #### [facility] [place] [facility] [address] [place] [address] Dr. Walker Grayogrlinda'lety Anti-SS-B <0.2 Normal 0.0-0.9 [facility] Comment on above: Performed By: #### S JUSTO #### [facility] [place] [facility] [address] [place] [address] Dr. Walker Gabriel Lemus Antibodies <0.2 Normal 0.0-0.9 [facility] Comment on above: Performed By: #### S JUSTO #### [facility] [place] [facility] [address] [place] [address] Dr. Walker Gabriel ANTISTREPTOLYSIN O AB (ASO)o n 04-19-2022 Antistreptolysin O Ab 227.2 IU/mL Critically high 0.0-200.0 [facility] Comment on above: Performed By: #### T SH, LIPID, CMP, URIC, T7, CRP #### [facility] [place] [facility] [address] [place] [address] Dr. Walker Gabriel INSULINon 04-19-2022 Insulin 20.8 uIU/mL Normal 2.6-24.9 [facility] Comment on above: Performed By: #### T SH, LIPID, CMP, URIC, T7, CRP #### [facility] [place] [facility] [address] [place] [address] Dr. Walker Gabriel CBC AUTO DIFFon 04-18-2022 BASO # 0.0 103/ul Normal 0.0-0.1 [facility] [place] [facility] Comment on above: Performed By: #### T SH, LIPID, CMP, URIC, T7, CRP #### [facility] [place] [facility] [address] [place] [address] Dr. Walker Gabriel Basophils/100 WBC (Bld) 0.4 % Normal 0.2-2.0 [facility] [place] [facility] Comment on above: Performed By: #### T SH, LIPID, CMP, URIC, T7, CRP #### [facility] [place] [facility] [address] [place] [address] Dr. Walker Gabriel EO # 0.1 103/ul Normal 0.0-0.7 [facility] [place] [facility] Comment on above: Performed By: #### T SH, LIPID, CMP, URIC, T7, CRP #### [facility] [place] [facility] [address] [place] [address] Dr. Walker Gabriel Eosinophils/100 WBC (Bld) 1.4 % Normal 0.9-7.0 [facility] [place] [facility] Comment on above: Performed By: #### T SH, LIPID, CMP, URIC, T7, CRP #### [facility] [place] [facility] [address] [place] [address] Dr. Walker Gabriel Erythrocyte distribution width (RBC) [Ratio] 12.8 % Normal 11.0-15.0 [facility] [place] [facility] Comment on above: Performed By: #### T SH, LIPID, CMP, URIC, T7, CRP #### [facility] [place] [facility] [address] [place] [address] Dr. Walker Gabriel Hematocrit (Bld) [Volume fraction] 38.1 % Normal 36.0-48.0 [facility] [place] [facility] Comment on above: Performed By: #### T SH, LIPID, CMP, URIC, T7, CRP #### [facility] [place] [facility] [address] [place] [address] Dr. Walker Gabriel Hemoglobin (Bld) [Mass/Vol] 12.3 g/dL Normal 12.0-16.0 [facility] [place] [facility] Comment on above: Performed By: #### T SH, LIPID, CMP, URIC, T7, CRP #### [facility] [place] [facility] [address] [place] [address] Dr. Walker Gabriel IG # 0.03 10e3/ul Normal 0.00-0.03 [facility] Comment on above: Performed By: #### T SH, LIPID, CMP, URIC, T7, CRP #### [facility] [place] [facility] [address] [place] [address] Dr. Walker Gabriel IG % 0.4 % Normal 0.0-0.5 [facility] [place] [facility] Comment on above: Performed By: #### T SH, LIPID, CMP, URIC, T7, CRP #### [facility] [place] [facility] [address] [place] [address] Dr. Walker Gabriel LYMPH # 2.6 103/ul Normal 1.2-3.8 [facility] [place] [facility] Comment on above: Performed By: #### T SH, LIPID, CMP, URIC, T7, CRP #### [facility] [place] [facility] [address] [place] [address] Dr. Walker Gabriel Lymphocytes/100 WBC (Bld) 35.5 % Normal 20.5-60.0 [facility] Comment on above: Performed By: #### T SH, LIPID, CMP, URIC, T7, CRP #### [facility] [place] [facility] [address] [place] [address] Dr. Walker Gabriel MANUAL DIFF REQ NO Normal [facility] Comment on above: Performed By: #### T SH, LIPID, CMP, URIC, T7, CRP #### [facility] [place] [facility] [address] [place] [address] Dr. Walker Gabriel MCH (RBC) [Entitic mass] 28.7 pg Normal 26.7-34.0 [facility] [place] [facility] Comment on above: Performed By: #### T SH, LIPID, CMP, URIC, T7, CRP #### [facility] [place] [facility] [address] [place] [address] Dr. Walker Gabriel MCHC (RBC) [Mass/Vol] 32.3 g/dL Normal 29.9-35.2 [facility] Comment on above: Performed By: #### T SH, LIPID, CMP, URIC, T7, CRP #### [facility] [place] [facility] [address] [place] [address] Dr. Walker Gabriel MCV (RBC) [Entitic vol] 88.8 fL Normal 81.0-99.0 [facility] [place] [facility] Comment on above: Performed By: #### T SH, LIPID, CMP, URIC, T7, CRP #### [facility] [place] [facility] [address] [place] [address] Dr. Walker Gabriel MONO # 0.4 103/ul Normal 0.3-0.8 [facility] [place] [facility] Comment on above: Performed By: #### T SH, LIPID, CMP, URIC, T7, CRP #### [facility] [place] [facility] [address] [place] [address] Dr. Walker Gabriel Monocytes/100 WBC (Bld) 6.1 % Normal 1.7-12.0 [facility] [place] [facility] Comment on above: Performed By: #### T SH, LIPID, CMP, URIC, T7, CRP #### [facility] [place] [facility] [address] [place] [address] Dr. Walker Gabriel NEUT # 4.0 103/ul Normal 1.4-6.5 [facility] [place] [facility] Comment on above: Performed By: #### T SH, LIPID, CMP, URIC, T7, CRP #### [facility] [place] [facility] [address] [place] [address] Dr. Walker Gabriel Neutrophils/100 WBC (Bld) 56.2 % Normal 43.0-75.0 [facility] [place] [facility] Comment on above: Performed By: #### T SH, LIPID, CMP, URIC, T7, CRP #### [facility] [place] [facility] [address] [place] [address] Dr. Walker Gabriel Platelet mean volume (Bld) [Entitic vol] 8.3 fL Critically low 9.5-13.5 [facility] [place] [facility] Comment on above: Performed By: #### T SH, LIPID, CMP, URIC, T7, CRP #### [facility] [place] [facility] [address] [place] [address] Dr. Walker Gabriel PLT 328 103/ul Normal 150-450 [facility] [place] [facility] Comment on above: Performed By: #### T SH, LIPID, CMP, URIC, T7, CRP #### [facility] [place] [facility] [address] [address] [address] Walker Gabriel RBC 4.29 106/ul Normal 4.20-5.40 [facility] Comment on above: Performed By: #### T SH, LIPID, CMP, URIC, T7, CRP #### [facility] [place] [facility] [address] [address] [address] Walker Gabriel WBC 7.2 103/ul Normal 4.0-11.0 [facility] Comment on above: Performed By: #### T SH, LIPID, CMP, URIC, T7, CRP #### [facility] [place] [facility] [address] [address] [address] Walker Gabriel CRPon 04-18-2022 CRP 1.3 mg/dL Critically high <=1.0 [facility] Comment on above: Performed By: #### T SH, LIPID, CMP, URIC, T7, CRP #### [facility] [place] [facility] [address] [place] [address] Dr. Walker Gabriel FREE THYROXINE INDEX T7on FTI 2.91 Normal 1.30-4.50 [facility] Comment on above: Performed By: #### T SH, LIPID, CMP, URIC, T7, CRP #### [facility] [place] [facility] [address] [address] [address] Walker Gabriel T3U 31.0 % Normal 30.0-39.0 [facility] Comment on above: Performed By: #### T SH, LIPID, CMP, URIC, T7, CRP #### [facility] [place] [facility] [address] [address] [address] Walker Gabriel T4 [Mass/Vol] 9.40 ug/dL Normal 4.80-13.90 [facility] Comment on above: Performed By: #### T SH, LIPID, CMP, URIC, T7, CRP #### [facility] [place] [facility] [address] [place] [address] Dr. Walker Gabriel GLYCOHEMOGLOBIN A1Con 2021 ADA RECOMMENDATION SEE BELOW Normal [facility] Comment on above: Result Comment: ADA RECOMMENDED LIMIT 4.0 - 6.0 ADA THERAPEUTIC TARGET < 7.0 ACTION SUGGESTED > 7.0 Performed By: #### T SH, LIPID, CMP, URIC, T7, CRP #### [facility] [place] [facility] [address] [address] [address] Walker Gabriel Glucose [Mass/Vol] 114 mg/dL Normal [facility] Comment on above: Performed By: #### T SH, LIPID, CMP, URIC, T7, CRP #### [facility] [place] [facility] [address] [address] [address] Walker Gabriel HbA1c (Bld) [Mass fraction] 5.6 % Normal 4.5-6.2 [facility] Comment on above: Performed By: #### T SH, LIPID, CMP, URIC, T7, CRP #### [facility] [place] [facility] [address] [place] [address] Dr. Walker Gabriel IRONon 04-18-2022 Iron [Mass/Vol] 34.0 ug/dL Critically low 50.0-170.0 [facility] Comment on above: Performed By: #### I FRANCISCO #### [facility] [place] [facility] [address] [place] [address] Dr. Walker Gabriel LIPID PROFILEon 04-18-2022 CHOL-HDL RATIO NORM SEE BELOW Normal [facility] Comment on above: Result Comment: 3.3 - 4.4 LOW RISK 4.4 - 7.1 AVERAGE RISK 7.1 - 11.0 MODERATE RISK >11.0 HIGH RISK Performed By: #### T SH, LIPID, CMP, URIC, T7, CRP #### [facility] [place] [facility] [address] [place] [address] Dr. Walker Gabriel Cholesterol [Mass/Vol] 174 mg/dL Normal <=200 [facility] Comment on above: Performed By: #### T SH, LIPID, CMP, URIC, T7, CRP #### [facility] [place] [facility] [address] [place] [address] Dr. Walker Gabriel Cholesterol in HDL [Mass/Vol] 70 mg/dL Critically high 40-60 [facility] Comment on above: Performed By: #### T SH, LIPID, CMP, URIC, T7, CRP #### [facility] [place] [facility] [address] [place] [address] Dr. Walker Gabriel Cholesterol in LDL [Mass/Vol] 92.8 mg/dL Normal [facility] Comment on above: Performed By: #### T SH, LIPID, CMP, URIC, T7, CRP #### [facility] [place] [facility] [address] [address] [address] Walker Gabriel Cholesterol.total/Ch olesterol in HDL [Mass ratio] 2.5 {ratio} Normal [facility] Comment on above: Performed By: #### T SH, LIPID, CMP, URIC, T7, CRP #### [facility] [place] [facility] [address] [address] [address] Walker Gabriel HDL NORMAL > or = 60 mg/dl - LO W CARDIOVASCULAR RISK <40 mg/dl - HIGH CARDIOVASCULAR RISK Normal [facility] Comment on above: Performed By: #### T SH, LIPID, CMP, URIC, T7, CRP #### [facility] [place] [facility] [address] [place] [address] Dr. Walker Gabriel LDL CALC NORMAL SEE BELOW Normal [facility] Comment on above: Result Comment: <100 mg/dl OPTIMAL 100 - 129 mg/dl NEAR OR ABOVE OPTIMAL 130 - 159 mg/dl BORDERLINE HIGH 160 - 189 mg/dl HIGH >190 mg/dl VERY HIGH Performed By: #### T SH, LIPID, CMP, URIC, T7, CRP #### [facility] [place] [facility] [address] [address] [address] Walker Gabriel Triglyceride [Mass/Vol] 56 mg/dL Normal <=150 [facility] Comment on above: Performed By: #### T SH, LIPID, CMP, URIC, T7, CRP #### [facility] [place] [facility] [address] [address] [address] Walker Gabriel VLDL CALC 11.2 mg/dL Normal [facility] Comment on above: Performed By: #### T SH, LIPID, CMP, URIC, T7, CRP #### [facility] [place] [facility] [address] [address] [address] Walker Gabriel PROF 14(COMP METB)on 04-18- 022 Albumin [Mass/Vol] 3.0 g/dL Critically low 3.4-5.0 [facility] Comment on above: Performed By: #### T SH, LIPID, CMP, URIC, T7, CRP #### [facility] [place] [facility] [address] [place] [address] Dr. Walker Gabriel Albumin/Globulin [Mass ratio] 0.6 {ratio} Normal [facility] Comment on above: Performed By: #### T SH, LIPID, CMP, URIC, T7, CRP #### [facility] [place] [facility] [address] [place] [address] Dr. Walker Gabriel ALP [Catalytic activity/Vol] 102 U/L Normal 46-116 [facility] Comment on above: Performed By: #### T SH, LIPID, CMP, URIC, T7, CRP #### [facility] [address] [place] [address] Dr. Walker Gabriel ALT [Catalytic activity/Vol] 19 U/L Normal 14-59 [facility] Comment on above: Performed By: #### T SH, LIPID, CMP, URIC, T7, CRP #### [facility] [address] [place] [address] Dr. Walker Gabriel Anion gap [Moles/Vol] 7.9 mmol/L Normal [facility] Comment on above: Performed By: #### T SH, LIPID, CMP, URIC, T7, CRP #### [facility] [address] [place] [address] Dr. Walker Gabriel AST [Catalytic activity/Vol] 12 U/L Critically low 15-37 [facility] Comment on above: Performed By: #### T SH, LIPID, CMP, URIC, T7, CRP #### [facility] [address] [place] [address] Dr. Walker Gabriel Bilirubin [Mass/Vol] 0.1 mg/dL Critically low 0.2-1.0 [facility] Comment on above: Performed By: #### T SH, LIPID, CMP, URIC, T7, CRP #### [facility] [address] [place] [address] Dr. Walker Gabriel Calcium [Mass/Vol] 8.9 mg/dL Normal 8.5-10.1 [facility] Comment on above: Performed By: #### T SH, LIPID, CMP, URIC, T7, CRP #### [facility] [address] [address] [address] Walker Gabriel Chloride [Moles/Vol] 103 mmol/L Normal 98-107 [facility] Comment on above: Performed By: #### T SH, LIPID, CMP, URIC, T7, CRP #### [facility] [address] [address] [address] Walker Gabriel CO2 [Moles/Vol] 28.4 mmol/L Normal 21.0-32.0 [facility] Comment on above: Performed By: #### T SH, LIPID, CMP, URIC, T7, CRP #### [facility] [address] [address] [address] Walker Gabriel Creatinine [Mass/Vol] 0.91 mg/dL Normal 0.55-1.02 [facility] Comment on above: Performed By: #### T SH, LIPID, CMP, URIC, T7, CRP #### [facility] [address] [place] [address] Dr. Walker Gabriel EGFR-AF SWEDISH >60 Normal >=60 [facility] Comment on above: Performed By: #### T SH, LIPID, CMP, URIC, T7, CRP #### [facility] [address] [place] [address] Dr. Walker Gabriel EGFR-NON AF SWEDISH >60 Normal >=60 [facility] Comment on above: Performed By: #### T SH, LIPID, CMP, URIC, T7, CRP #### [facility] [address] [address] [address] Walker Gabriel Globulin (S) [Mass/Vol] 4.7 g/dL Normal [facility] Comment on above: Performed By: #### T SH, LIPID, CMP, URIC, T7, CRP #### [facility] [address] [place] [address] Dr. Walker Gabriel Glucose [Mass/Vol] 87 mg/dL Normal 74-106 [facility] Comment on above: Performed By: #### T SH, LIPID, CMP, URIC, T7, CRP #### [facility] [address] [place] [address] Dr. Walker Gabriel Potassium [Moles/Vol] 4.3 mmol/L Normal 3.5-5.1 [facility] Comment on above: Performed By: #### T SH, LIPID, CMP, URIC, T7, CRP #### [facility] [address] [place] [address] Dr. Walker Gabriel Protein [Mass/Vol] 7.7 g/dL Normal 6.4-8.2 [facility] Comment on above: Performed By: #### T SH, LIPID, CMP, URIC, T7, CRP #### [facility] [address] [place] [address] Dr. Walker Gabriel Sodium [Moles/Vol] 135 mmol/L Critically low 136-145 [facility] Comment on above: Performed By: #### T SH, LIPID, CMP, URIC, T7, CRP #### [facility] [address] [place] [address] Dr. Walker Gabriel Urea nitrogen [Mass/Vol] 21.0 mg/dL Critically high 7.0-18.0 [facility] Comment on above: Performed By: #### T SH, LIPID, CMP, URIC, T7, CRP #### [facility] [address] [place] [address] Dr. Walker Gabriel Urea nitrogen/Creatinine [Mass ratio] 23.1 mg/mg Normal [facility] Comment on above: Performed By: #### T SH, LIPID, CMP, URIC, T7, CRP #### [facility] [address] [place] [address] Dr. Walker Gabriel TSHon 04-18-2022 TSH 2.570 uIU/mL Normal 0.358-3.740 [facility] Comment on above: Performed By: #### T SH, LIPID, CMP, URIC, T7, CRP #### [facility] [address] [place] [address] Dr. Walker Gabriel URIC ACID SERUMon 04-18-2022 Urate [Mass/Vol] 5.7 mg/dL Normal 2.6-6.0 [facility] Comment on above: Performed By: #### T SH, LIPID, CMP, URIC, T7, CRP #### [facility] [address] [address] [address] Walker Gabriel US VENOUS DOPPLER L [place] US VENOUS DOPPLER L ARM EXAMINATION: US VENOUS DOPPLER L ARM HISTORY: Pain in left arm COMPARISON: No relevant comparison available. TECHNIQUE: Grayscale, color and Doppler ultrasound FINDINGS: Region: Left arm Thrombus: None Flow: Normal Augmentation: Normal Compressibility: Normal Other: Ultrasound of the antecubital fossa in the area of the patient's palpable abnormality demonstrates no focal ultrasound lesion IMPRESSION: No deep or superficial vein thrombus identified in the left arm *Exam performed in accordance with [facility] practice guidelines- Peripheral venous ultrasound, September 22, 2009. Electronically authenticated by: JENNY ARIAS Date: 2022-04-18 18:[address] [facility] Clinical Supporton Clinical Support [id number] Rebecca Jewell 1985 [facility] Provider Department [place] 04/17/2022 MARISA SIMON [facility] No family history on file Reason for Visit and Comments: Worker's Compensation [732] Follow-up [325267] Concussion [772936] Normal [facility] Follow-Upon 04-03-2022 Follow-Up [id number] Rebecca Jewell 1985 [facility] Provider Department [place] 04/03/2022 260RUFINO MAY [facility] Chart Close Cosign Required by: Rufino Perdomo MD[[id number]] No family history on file Level of Service:21227 [place] OFFICE/OUTPATIENT ESTABLISHED LOW MDM 20-29 MIN (GC) Reason for Visit and Comments: Pain [136] Edema [[id number]] Follow-up [008309] Normal [facility] Erroneous Encounteron 2021 Erroneous Encounter [id number] Rebecca Jewell 1985 [facility] Provider Department [place] 03/31/2022 [id number] ERNANDEZ [facility] Pavi No family history on file Reason for Visit and Comments: Error (VOID this visit) [77] Normal [facility] CNOVon 02-03-2022 CNOV Office Visit (NMUA ) NABILA JEWELL ([id number]) 1985 F Date Time Provider Department 02/03/22 11:00 AM CHAS ROMERO During your visit today, we recorded the following information about you: Pulse Blood pressure Weight Height 66/minute 117/84 122.7 kg 1.549 m Chas Romero DO 02/03/2022 11:27 AM Signed [facility] Follow up Visit SERVICE DATE: 02/03/2022 PCP: [place] [address] [place] [address] Reason for Evaluation: Consultation requested by Self for an opinion regarding right leg weakness Family/Friend accompanying the patient today: none HPI: This is Ms. Nabila Jewell, a 36 year old female who presents to the [facility] with the chief complaint above. 02/03/2022: She notes that she is having right leg weakness and pain still. She had an MRI of her left leg, she started having left leg pain. She is still following with orthopedics. She has not fallen at all, the leg has given out on her. She is still having to use cane, she was not using this in the house. Initial history: She had an injury at work (March 2021)-she fell and hit her head on a prep table and fell onto her knee. She had difficulty moving to get up after this. She went to [facility] in [place]. She was evaluated and did testing and said there was a contusion and swelling and she was put in knee immobilizer and was in this for a few months. She has noticed weakness in that leg, it gave out once on her and she fell with this. When she walks, she feels like the leg is going to give out on her and she limps with this. This has been getting stronger but has been taking more time. She stopped physical therapy now at this point. She occasionally gets some numbness around the knee and then this was from knee down to the toe. She does have back pain, she had low back pain and was on opiates for some time and now is on methadone. She does think it has gotten worse, sometimes radicular pain. She is still having a lot of pain in the knee, this is worse when she is moving it around-when she gets up and walks or stands. She still wears brace on knee most of the time. She is using a cane, she is worried she will fall. She denies prior surgery on the back. Per patient/chart review there is a past medical history of: HTN Lumbar disease EMG 01/23/2022: Extensive electrodiagnostic examination of the right lower extremity reveals no significant abnormalities. In particular, there is neither evidence of a right lumbosacral motor radiculopathy, nor a large fiber sensorimotor polyneuropathy affecting the lower extremity. OUTPATIENT MEDICATIONS Current Outpatient Medications Medication Sig potassium chloride in water 20 mEq/100 mL IVPB Inject 20 mEq intravenously one time only. ALPRAZolam (XANAX) 0.5 mg tablet TAKE 1 TABLET BY ORAL ROUTE 2 TIMES PER DAY NEEDED FOR ANXIETY lisinopril (ZESTRIL, PRINIVIL) 20 mg tablet Take 20 mg by mouth once daily. magnesium oxide (MAG-OX) 400 mg (241.3 mg magnesium) tablet Take 1 tablet by mouth twice daily. methadone HCl (METHADONE ORAL) Take 52 mg by mouth once daily. No current facility-administered medications for this visit. Methadone MEDICAL HISTORY PAST MEDICAL HISTORY Diagnosis Date Adrenal nodule (HCC) Cervical strain Chest pain Concussion Fatigue Gastroenteritis HTN (hypertension) Lumbar disc disease Navicular fracture MONIQUE (obstructive sleep apnea) SURGICAL HISTORY PAST SURGICAL HISTORY Procedure Laterality Date CHOLECYSTECTOMY PAST SURGICAL HISTORY OF fatty tumor removal SOCIAL HISTORY Social History Tobacco Use Smoking status: Former Packs/day: 0.50 Years: 10.00 Pack years: 5.00 Types: Cigarettes Quit date: 08/15/2019 Years since quittin.4 Smokeless tobacco: Never Substance Use Topics Alcohol use: No Drug use: No FAMILY HISTORY FAMILY HISTORY Problem Relation Age of Onset Hypertension Mother Diabetes Father Hypertension Father Heart Father 48 cabgx6 ALLERGIES ALLERGIES No Known Allergies PHYSICAL EXAM: BP 117/84 (BP Site: Left Arm, BP Position: Sitting, BP Cuff Size: Regular Adult) Pulse 66 Ht 154.9 cm (5' 1 ) Wt 122.7 kg (270 lb 8 oz) LMP 05/07/2015 SpO2 98% BMI 51.11 kg/m? General: General appearance: Awake and alert. No distress. Cooperative with exam. Skin: No rash or jaundice. HEENT: Atraumatic. Anicteric. Extremities: No edema. No obvious deformity. Musculoskeletal: No obvious joint swelling. Psych: Affect appropriate. Neurological: Mental Status: Alert. Speech fluent. Cranial Nerves: CNII: No RAPD. Visual ya intact. CNIII, IV, : PERRL. No nystagmus. EOMI. CN V: Facial sensation intact bilaterally to fine touch. CN VII: Facial muscles symmetric and strong. No ptosis CN VIII: He (more content not included)... Normal [facility] 01-30-2022 [facility] Telephone (NEURST) NABILA JEWELL ([id number]) 1985 F Date Time Provider Department 01/30/22 CHAS ROMERO During your visit today, we recorded the following information about you: Chas Romero DO 01/30/2022 10:44 AM Signed I called patient and communicated results of EMG testing, all questions answered. Advised her that she does not need to follow up with me. Chas Romero DO Allergies As of Date: 01/30/2022 (No Known Allergies) Date Reviewed: 11/12/2021 Reviewed by: Marcus Rivera MA - Fully Assessed Reason for Visit: Results [95] Prescriptions as of 01/30/2022 - potassium chloride in water 20 mEq/100 mL IVPB Inject 20 mEq intravenously one time only. - ALPRAZolam (XANAX) 0.5 mg tablet TAKE 1 TABLET BY ORAL ROUTE 2 TIMES PER DAY NEEDED FOR ANXIETY - lisinopril (ZESTRIL, PRINIVIL) 20 mg tablet Take 20 mg by mouth once daily. - magnesium oxide (MAG-OX) 400 mg (241.3 mg magnesium) tablet Take 1 tablet by mouth twice daily. - methadone HCl (METHADONE ORAL) Take 52 mg by mouth once daily. Problem List As Of Date 01/30/2022 Noted Resolved HTN (hypertension) [I10] MONIQUE (obstructive sleep apnea) [G47.33] Fatigue [R53.83] Chest pain [R07.9] Adrenal nodule (HCC) [E27.8] 05/18/2015 Encounter Status:Closed by CHAS ROMERO on 01/30/22 Normal [facility] MRI KNEE LT WO CONon 022 MRI KNEE LT WO CON HISTORY: Left knee pain. MRI KNEE LT WO CON: 01/27/2022 1:05 PM EDT COMPARISON: Radiographs left knee 01/13/2022. TECHNIQUE: Multiplanar, multisequence MRI images of the knee were obtained. FINDINGS: A few images are slightly degraded by motion artifact. JOINT SPACES: There is a small joint effusion. There appears to be probable mild fibrillation involving the surface of the patellar cartilage. There also appears to be probable grade 2 chondromalacia involving the inferior aspect of the medial femoral trochlear cartilage. There also appears to be mild thinning of the central weightbearing portion of the medial femoral condyle cartilage. The remaining articular cartilage appears grossly within normal limits. LIGAMENTS AND TENDONS: The medial collateral ligament appears within normal limits. The lateral collateral ligament, posterior cruciate ligament, iliotibial band, patellar tendon, and visualized distal quadriceps tendon appear within normal limits. The anterior cruciate ligament appears within normal limits. 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 No tear of the lateral meniscus or medial meniscus is seen. BONES: The bone marrow signal intensity is age appropriate. MUSCLES AND SOFT TISSUES: The visualized musculature appears of normal signal intensity. There is no Chiang cyst. There is a small amount of subcutaneous edema along the anteromedial aspect of the knee. IMPRESSION: 1. There appears to be probable mild degenerative change of the medial and patellofemoral compartments. 2. 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 3. No ligament injury or Chiang's cyst. 4. Small joint effusion. Electronically authenticated by: SMILEY CALVILLO Date: 2022-01-28 12:[address] [facility] EMG(NEURO/NI)on 01-23-2022 [facility] MG MAMM DIAGNOSTIC 3D GREGORY CA Don 01-22-2022 MG MAMM DIAGNOSTIC 3D GREGORY CAD Patient: NABILA JEWELL. Exam Date: 01/22/2022 : 1985 Gender:F Ordering : DR SMILEY URIAS . Admission #: [id number] Family : Order #: [id number] CLICK HERE TO VIEW EXAM RADIOLOGY REPORT PROCEDURE: MAMMOGRAM DIAGNOSTIC 3D BILATERAL CAD COMPARISON: MG MAMM GREGORY DIAG W CAD, 03/13/2021. MG MAMM DX 3D RT CAD, 07/08/2021. MAMMO POST BIOPSY RIGHT, 03/22/2021. INDICATIONS: Disorder of breast Calculator Name NCI Breast Cancer Risk Assessment Tool 5 Year Breast Cancer Risk 0.50% Lifetime Breast Cancer Risk 11.30% Personal Breast Cancer No Personal Ovarian Cancer No Treatments None Family Cancers None LOCATION: [facility] BREAST COMPOSITION: Scattered areas fibroglandular density. FINDINGS: DIAGNOSTIC CATEGORY 2--BENIGN FINDING: RIGHT BREAST: No significant suspicious finding. Stable biopsy marker clip in anterior upper-outer quadrant. No significant change has occurred. LEFT BREAST: No significant suspicious finding. No significant change has occurred. RECOMMENDATIONS: CLINICAL EVALUATION. PLEASE NOTE: A NORMAL MAMMOGRAM DOES NOT EXCLUDE THE POSSIBILITY OF BREAST CANCER. A CLINICALLY SUSPICIOUS PALPABLE LUMP SHOULD BE BIOPSIED. Dictated by: Pascual Gamble M.D. on 01/22/2022 at 14:55 Approved by: Pascual Gamble M.D. on 01/22/2022 at 15:30 Normal [facility]2021 [facility] FANTATAJNABILA M ([id number]) 1985 F Date Time Provider Department 12/06/21 CHAS ROMERO During your visit today, we recorded the following information about you: Sky Rapp 12/06/2021 11:33 AM Signed Relationship to patient: Self Reason for call (non-seizure related) Patient called asking about status of prior authorization for EMG order Patient of Dr. Heather He Pss 12/08/2021 10:06 AM Signed Patient is scheduled for EMG Noemi He Pss Allergies As of Date: 12/06/2021 (No Known Allergies) Date Reviewed: 11/12/2021 Reviewed by: Marcus Rivera MA - Fully Assessed Reason for Visit: Insurance Authorization [[id number]] Prescriptions as of 12/08/2021 - potassium chloride in water 20 mEq/100 mL IVPB Inject 20 mEq intravenously one time only. - ALPRAZolam (XANAX) 0.5 mg tablet TAKE 1 TABLET BY ORAL ROUTE 2 TIMES PER DAY NEEDED FOR ANXIETY - lisinopril (ZESTRIL, PRINIVIL) 20 mg tablet Take 20 mg by mouth once daily. - magnesium oxide (MAG-OX) 400 mg (241.3 mg magnesium) tablet Take 1 tablet by mouth twice daily. - methadone HCl (METHADONE ORAL) Take 52 mg by mouth once daily. Problem List As Of Date 12/06/2021 Noted Resolved HTN (hypertension) [I10] MONIQUE (obstructive sleep apnea) [G47.33] Fatigue [R53.83] Chest pain [R07.9] Adrenal nodule (HCC) [E27.8] 05/18/2015 Encounter Status:Closed by SKY RAPP on 12/06/21 [facility] 11-15-2021 [facility] NABILA JEWELL ([id number]) 1985 F Date Time Provider Department 11/15/21 CHAS ROMERO [facility] During your visit today, we recorded the following information about you: Rosana Shaw 11/15/2021 10:02 AM Addendum Pt requesting Dr. Romero send in C9 to workers comp for EMG. 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 LPA2 Pt will call back with fax numbers. Rosana Shaw Allergies As of Date: 11/15/2021 (No Known Allergies) Date Reviewed: 11/12/2021 Reviewed by: Marcus Rivera MA - Fully Assessed Reason for Visit: Forms [913] Prescriptions as of 04/03/2022 - potassium chloride in water 20 mEq/100 mL IVPB Inject 20 mEq intravenously one time only. - ALPRAZolam (XANAX) 0.5 mg tablet TAKE 1 TABLET BY ORAL ROUTE 2 TIMES PER DAY NEEDED FOR ANXIETY - lisinopril (ZESTRIL, PRINIVIL) 20 mg tablet Take 20 mg by mouth once daily. - magnesium oxide (MAG-OX) 400 mg (241.3 mg magnesium) tablet Take 1 tablet by mouth twice daily. - methadone HCl (METHADONE ORAL) Take 52 mg by mouth once daily. Problem List As Of Date 11/15/2021 Noted Resolved HTN (hypertension) [I10] MONIQUE (obstructive sleep apnea) [G47.33] Fatigue [R53.83] Chest pain [R07.9] Adrenal nodule (HCC) [E27.8] 05/18/2015 Encounter Status:Closed by ROSANA VALVERDE on 04/03/22 [facility] CNOVon 11-12-2021 CNOV Office Visit ([facility] ) NABILA JEWELL ([id number]) 1985 F Date Time Provider Department 11/12/21 2:00 PM CHAS ROMERO [facility] During your visit today, we recorded the following information about you: Pulse Blood pressure Weight Height 69/minute 120/82 118.6 kg 1.549 m Chas Romero DO 11/12/2021 2:58 PM Signed [facility] New Patient Visit SERVICE DATE: 11/12/2021 PCP: Smiley Urias MD [address] [place] [address] Reason for Evaluation: Consultation requested by Self for an opinion regarding right leg weakness Family/Friend accompanying the patient today: none HPI: This is Ms. Nabila Jewell, a 36 year old female who presents to the [facility] with the chief complaint above. She had an injury at work (March 2021)-she fell and hit her head on a prep table and fell onto her knee. She had difficulty moving to get up after this. She went to [facility] in [place]. She was evaluated and did testing and said there was a contusion and swelling and she was put in knee immobilizer and was in this for a few months. She has noticed weakness in that leg, it gave out once on her and she fell with this. When she walks, she feels like the leg is going to give out on her and she limps with this. This has been getting stronger but has been taking more time. She stopped physical therapy now at this point. She occasionally gets some numbness around the knee and then this was from knee down to the toe. She does have back pain, she had low back pain and was on opiates for some time and now is on methadone. She does think it has gotten worse, sometimes radicular pain. She is still having a lot of pain in the knee, this is worse when she is moving it around-when she gets up and walks or stands. She still wears brace on knee most of the time. She is using a cane, she is worried she will fall. She denies prior surgery on the back. Per patient/chart review there is a past medical history of: HTN Lumbar disease OUTPATIENT MEDICATIONS Current Outpatient Medications Medication Sig - potassium chloride in water 20 mEq/100 mL IVPB Inject 20 mEq intravenously one time only. - ALPRAZolam (XANAX) 0.5 mg tablet TAKE 1 TABLET BY ORAL ROUTE 2 TIMES PER DAY NEEDED FOR ANXIETY - lisinopril (ZESTRIL, PRINIVIL) 20 mg tablet Take 20 mg by mouth once daily. - magnesium oxide (MAG-OX) 400 mg (241.3 mg magnesium) tablet Take 1 tablet by mouth twice daily. No current facility-administered medications for this visit. Methadone MEDICAL HISTORY PAST MEDICAL HISTORY Diagnosis Date - Adrenal nodule (HCC) - Cervical strain - Chest pain - Concussion - Fatigue - Gastroenteritis - HTN (hypertension) - Lumbar disc disease - Navicular fracture - MONIQUE (obstructive sleep apnea) SURGICAL HISTORY PAST SURGICAL HISTORY Procedure Laterality Date - CHOLECYSTECTOMY - PAST SURGICAL HISTORY OF fatty tumor removal SOCIAL HISTORY Social History Tobacco Use - Smoking status: Former Smoker Packs/day: 0.50 Years: 10.00 Pack years: 5.00 Types: Cigarettes Quit date: 08/15/2019 Years since quittin.2 - Smokeless tobacco: Never Used Substance Use Topics - Alcohol use: No - Drug use: No FAMILY HISTORY FAMILY HISTORY Problem Relation Age of Onset - Hypertension Mother - Diabetes Father - Hypertension Father - Heart Father 48 cabgx6 ALLERGIES ALLERGIES No Known Allergies PHYSICAL EXAM: BP 120/82 (BP Site: Left Arm, BP Position: Sitting, BP Cuff Size: Regular Adult) Pulse 69 Ht 154.9 cm (5' 1 ) Wt 118.6 kg (261 lb 8 oz) LMP 05/07/2015 SpO2 100% BMI 49.41 kg/m? General: General appearance: Awake and alert. No distress. Cooperative with exam. Skin: No rash or jaundice. HEENT: Atraumatic. Anicteric. Extremities: No edema. No obvious deformity. Musculoskeletal: No obvious joint swelling. Psych: Affect appropriate. Neurological: ? Mental Status: ? Alert. Speech fluent. - Cranial Nerves: - CNII: No RAPD. Visual ya intact. - CNIII, IV, : PERRL. No nystagmus. EOMI. - CN V: Facial sensation intact bilaterally to fine touch. - CN VII: Facial muscles symmetric and strong. No ptosis - CN VIII: Hears finger rub well bilaterally. - CN IX: No hypophonia. - CN X: Palate elevates symmetrically. - CN XI: Full strength shoulder shrug bilaterally. - CN XII: Tongue protrusion full and midline. No atrophy or fasciculations. - No significant dysarthria ? Motor: Tone is normal. ? Fasciculations none in extremities. ? Atrophy none. ? Individual muscle group testing (MRC grade out of 5): Movement Neck flexion 5 Neck extension 5 Right Left Shoulder abduction 5 5 Arm flexion 5 5 Elbow flexion 5 5 Elbow extension 5 5 Wrist extension 5 5 Wrist flexion 5 5 Finger abduction - FDI (more content not included)... [facility] NABILA JEWELL ([id number]) 1985 F Date Time Provider Department 10/22/21 CHAS ROMERO [facility] During your visit today, we recorded the following information about you: Sky Rapp 10/22/2021 10:54 AM Signed Referral, medical records received and scanned in for review. Allergies As of Date: 10/22/2021 (No Known Allergies) Date Reviewed: 06/14/2015 Reviewed by: Marly Fitzpatrick - Fully Assessed Reason for Visit: Received Outside Medical Records [2037] Prescriptions as of 10/22/2021 - Hydrochlorothiazide 12.5 mg capsule Take 1 capsule by mouth once daily. - cloNIDine HCl (CATAPRES) 0.1 mg tablet Take 1 tablet by mouth three times daily. - pantoprazole DR (PROTONIX) 40 mg tablet Take 40 mg by mouth once daily. - OXcarbazepine (TRILEPTAL) 150 mg tablet Take 150 mg by mouth twice daily. - Irbesartan-Hydrochloro thiazide 300-12.5 mg per tablet Take 1 tablet by mouth once daily. - spironolactone (ALDACTONE) 50 mg tablet Take 1 tablet by mouth once daily. - carvedilol (COREG) 25 mg tablet Take 1 tablet by mouth twice daily. - hydrALAZINE (APRESOLINE) 50 mg tablet Take 1 tablet by mouth twice daily. - oxyCODONE 20 mg tab Take 20 mg by mouth four times daily. - TRAMADOL HCL (TRAMADOL ORAL) Take 50 mg by mouth four times daily. - morphine ER (LUANA) 30 mg 24 hr capsule Take 30 mg by mouth three times daily. - promethazine (PHENERGAN) 25 mg tablet Take 25 mg by mouth every 6 hours as needed. - tiZANidine (ZANAFLEX) 4 mg tablet Take 4 mg by mouth every 6 hours as needed. - amitriptyline (ELAVIL) 100 mg tablet Take 100 mg by mouth daily at bedtime. - ALPRAZolam (XANAX) 1 mg tablet Take 2 mg by mouth three times daily as needed. Problem List As Of Date 10/22/2021 Noted Resolved HTN (hypertension) [I10] MONIQUE (obstructive sleep apnea) [G47.33] Fatigue [R53.83] Chest pain [R07.9] Adrenal nodule (HCC) [E27.8] 05/18/2015 Encounter Status:Closed by SKY RAPP on 10/22/21 Normal [facility] CARDIAC MACIE 3-6on 2 CK [Catalytic activity/Vol] 135 U/L Normal 30-135 [facility] Comment on above: Performed By: #### C MREP #### [facility] [address] [place] [address] Dr. Walker Gabriel CK.MB [Mass/Vol] 0.84 ng/mL Normal <=2.37 [facility] Comment on above: Performed By: #### C MREP #### [facility] [address] [address] [address] Walker Gabriel HSTROP 8.5 pg/mL Normal 4.0-35.5 [facility] Comment on above: Result Comment: CUT- OFF POINTS HAVE BEEN ESTABLISHED BASED ON THE FOURTH UNIVERSAL DEFINITIONS OF MYOCARDIAL INFARCTION. THE UPPER REFERENCE LIMIT (URL) OF TROPONIN, DEFINED THE 99TH PERCENTILE OF cTnI DISTRIBUTION IN A REFERENCE POPULATION, HAS BEEN CONFIRMED THE DECISION THRESHOLD FOR ME DIAGNOSIS. Performed By: #### C MREP #### [facility] [address] [address] [address] Walker Gabriel CARDIAC MACIE ADMITon 022 CK [Catalytic activity/Vol] 114 U/L Normal 30-135 [facility] Comment on above: Performed By: #### T SH, LIPID, CMP, URIC, T7, CRP #### [facility] [address] [place] [address] Dr. Walker Gabriel CK.MB [Mass/Vol] 0.71 ng/mL Normal <=2.37 [facility] Comment on above: Performed By: #### T SH, LIPID, CMP, URIC, T7, CRP #### [facility] [address] [place] [address] Dr. Walker Gabriel HSTROP 6.1 pg/mL Normal 4.0-35.5 [facility] Comment on above: Result Comment: CUT- OFF POINTS HAVE BEEN ESTABLISHED BASED ON THE FOURTH UNIVERSAL DEFINITIONS OF MYOCARDIAL INFARCTION. THE UPPER REFERENCE LIMIT (URL) OF TROPONIN, DEFINED THE 99TH PERCENTILE OF cTnI DISTRIBUTION IN A REFERENCE POPULATION, HAS BEEN CONFIRMED THE DECISION THRESHOLD FOR ME DIAGNOSIS. Performed By: #### T SH, LIPID, CMP, URIC, T7, CRP #### [facility] [address] [place] [address] Dr. Walker Gabriel COLLINS 43.0 ng/mL Normal <=61.5 [facility] Comment on above: Performed By: #### T SH, LIPID, CMP, URIC, T7, CRP #### [facility] [address] [place] [address] Dr. Walker Gabriel CBC AUTO DIFFon 09-06-2021 BASO # 0.0 103/ul Normal 0.0-0.1 [facility] Comment on above: Performed By: #### T SH, LIPID, CMP, URIC, T7, CRP #### [facility] [address] [place] [address] Dr. Walker Gabriel Basophils/100 WBC (Bld) 0.5 % Normal 0.2-2.0 [facility] Comment on above: Performed By: #### T SH, LIPID, CMP, URIC, T7, CRP #### [facility] [address] [place] [address] Dr. Walker Gabriel EO # 0.0 103/ul Normal 0.0-0.7 [facility] Comment on above: Performed By: #### T SH, LIPID, CMP, URIC, T7, CRP #### [facility] [address] [address] [address] Walker Gabriel Eosinophils/100 WBC (Bld) 0.1 % Critically low 0.9-7.0 [facility] Comment on above: Performed By: #### T SH, LIPID, CMP, URIC, T7, CRP #### [facility] [address] [place] [address] Dr. Walker Gabriel Erythrocyte distribution width (RBC) [Ratio] 12.3 % Normal 11.0-15.0 [facility] Comment on above: Performed By: #### T SH, LIPID, CMP, URIC, T7, CRP #### [facility] [address] [place] [address] Dr. Walker Gabriel Hematocrit (Bld) [Volume fraction] 41.4 % Normal 36.0-48.0 [facility] Comment on above: Performed By: #### T SH, LIPID, CMP, URIC, T7, CRP #### [facility] [address] [place] [address] Dr. Walker Gabriel Hemoglobin (Bld) [Mass/Vol] 13.6 g/dL Normal 12.0-16.0 [facility] Comment on above: Performed By: #### T SH, LIPID, CMP, URIC, T7, CRP #### [facility] [address] [place] [address] Dr. Walker Gabriel IG # 0.02 10e3/ul Normal 0.00-0.03 [facility] Comment on above: Performed By: #### T SH, LIPID, CMP, URIC, T7, CRP #### [facility] [address] [place] [address] Dr. Walker Gabriel IG % 0.2 % Normal 0.0-0.5 [facility] Comment on above: Performed By: #### T SH, LIPID, CMP, URIC, T7, CRP #### [facility] [address] [place] [address] Dr. Walker Gabriel LYMPH # 2.6 103/ul Normal 1.2-3.8 [facility] Comment on above: Performed By: #### T SH, LIPID, CMP, URIC, T7, CRP #### [facility] [address] [place] [address] Dr. Walker Gabriel Lymphocytes/100 WBC (Bld) 32.4 % Normal 20.5-60.0 [facility] Comment on above: Performed By: #### T SH, LIPID, CMP, URIC, T7, CRP #### [facility] [address] [place] [address] Dr. Walker Gabriel MANUAL DIFF REQ NO Normal [facility] Comment on above: Performed By: #### T SH, LIPID, CMP, URIC, T7, CRP #### [facility] [address] [place] [address] Dr. Walker Gabriel MCH (RBC) [Entitic mass] 28.8 pg Normal 26.7-34.0 [facility] Comment on above: Performed By: #### T SH, LIPID, CMP, URIC, T7, CRP #### [facility] [address] [place] [address] Dr. Walker Gabriel MCHC (RBC) [Mass/Vol] 32.9 g/dL Normal 29.9-35.2 [facility] Comment on above: Performed By: #### T SH, LIPID, CMP, URIC, T7, CRP #### [facility] [address] [place] [address] Dr. Walker Gabriel MCV (RBC) [Entitic vol] 87.5 fL Normal 81.0-99.0 [facility] Comment on above: Performed By: #### T SH, LIPID, CMP, URIC, T7, CRP #### [facility] [address] [place] [address] Dr. Walker Gabriel MONO # 0.4 103/ul Normal 0.3-0.8 [facility] Comment on above: Performed By: #### T SH, LIPID, CMP, URIC, T7, CRP #### [facility] [address] [place] [address] Dr. Walker Gabriel Monocytes/100 WBC (Bld) 5.0 % Normal 1.7-12.0 [facility] Comment on above: Performed By: #### T SH, LIPID, CMP, URIC, T7, CRP #### [facility] [address] [address] [address] Walker Gabriel NEUT # 5.0 103/ul Normal 1.4-6.5 [facility] Comment on above: Performed By: #### T SH, LIPID, CMP, URIC, T7, CRP #### [facility] [address] [place] [address] Dr. Walker Gabriel Neutrophils/100 WBC (Bld) 61.8 % Normal 43.0-75.0 [facility] Comment on above: Performed By: #### T SH, LIPID, CMP, URIC, T7, CRP #### [facility] [address] [place] [address] Dr. Walker Gabriel Platelet mean volume (Bld) [Entitic vol] 8.4 fL Critically low 9.5-13.5 [facility] Comment on above: Performed By: #### T SH, LIPID, CMP, URIC, T7, CRP #### [facility] [address] [place] [address] Dr. Walker Gabriel PLT 347 103/ul Normal 150-450 [facility] Comment on above: Performed By: #### T SH, LIPID, CMP, URIC, T7, CRP #### [facility] [address] [place] [address] Dr. Walker Gabriel RBC 4.73 106/ul Normal 4.20-5.40 [facility] Comment on above: Performed By: #### T SH, LIPID, CMP, URIC, T7, CRP #### [facility] [address] [place] [address] Dr. Walker Gabriel WBC 8.1 103/ul Normal 4.0-11.0 [facility] Comment on above: Performed By: #### T SH, LIPID, CMP, URIC, T7, CRP #### [facility] [address] [place] [address] Dr. Walker Gabriel CRPon 09-06-2021 CRP 0.7 mg/dL Normal <=1.0 [facility] Comment on above: Performed By: #### T SH, LIPID, CMP, URIC, T7, CRP #### [facility] [address] [address] [address] Walker Gabriel PROF CHEM 8 (BAS METB)on Anion gap [Moles/Vol] 10.2 mmol/L Normal [facility] Comment on above: Performed By: #### T SH, LIPID, CMP, URIC, T7, CRP #### [facility] [address] [address] [address] Walker Gabriel Calcium [Mass/Vol] 9.0 mg/dL Normal 8.4-10.2 [facility] Comment on above: Performed By: #### T SH, LIPID, CMP, URIC, T7, CRP #### [facility] [address] [address] [address] Walker Gabriel Chloride [Moles/Vol] 99 mmol/L Normal 98-107 [facility] Comment on above: Performed By: #### T SH, LIPID, CMP, URIC, T7, CRP #### [facility] [address] [address] [address] Walker Gabriel CO2 [Moles/Vol] 26.5 mmol/L Normal 22.0-30.0 [facility] Comment on above: Performed By: #### T SH, LIPID, CMP, URIC, T7, CRP #### [facility] [address] [address] [address] Walker Gabriel Creatinine [Mass/Vol] 1.19 mg/dL Critically high 0.52-1.04 [facility] Comment on above: Performed By: #### T SH, LIPID, CMP, URIC, T7, CRP #### [facility] [address] [address] [address] Walker Gabriel EGFR-AF SWEDISH >60 Normal >=60 [facility] Comment on above: Performed By: #### T SH, LIPID, CMP, URIC, T7, CRP #### [facility] [address] [address] [address] Walker Gabriel EGFR-NON AF SWEDISH 51 mL/min/1.73m2 Critically low >=60 [facility] Comment on above: Performed By: #### T SH, LIPID, CMP, URIC, T7, CRP #### [facility] [address] [address] [address] Walker Gabriel Glucose [Mass/Vol] 105 mg/dL Normal 74-106 [facility] Comment on above: Performed By: #### T SH, LIPID, CMP, URIC, T7, CRP #### [facility] [address] [place] [address] Dr. Walker Gabriel Potassium [Moles/Vol] 3.7 mmol/L Normal 3.4-5.0 [facility] Comment on above: Performed By: #### T SH, LIPID, CMP, URIC, T7, CRP #### [facility] [address] [place] [address] Dr. Walker Gabriel Sodium [Moles/Vol] 132 mmol/L Critically low 137-145 [facility] Comment on above: Performed By: #### T SH, LIPID, CMP, URIC, T7, CRP #### [facility] [address] [place] [address] Dr. Walker Gabriel Urea nitrogen [Mass/Vol] 15.0 mg/dL Normal 7.0-17.0 [facility] Comment on above: Performed By: #### T SH, LIPID, CMP, URIC, T7, CRP #### [facility] [address] [place] [address] Dr. Walker Gabriel Urea nitrogen/Creatinine [Mass ratio] 12.6 mg/mg Normal [facility] Comment on above: Performed By: #### T SH, LIPID, CMP, URIC, T7, CRP #### [facility] [address] [place] [address] Dr. Walker Gabriel SED RATE [facility] 2021 SED RATE 49 mm/hr Critically high <=20 [facility] Comment on above: Performed By: #### T SH, LIPID, CMP, URIC, T7, CRP #### [facility] [address] [place] [address] Dr. Walker Gabriel XR CHEST 2 Von 09-06-2021 XR CHEST 2 V EXAMINATION:XR CHEST 2 V INDICATION:Pain COMPARISON:05/22/2020 TECHNIQUE:Frontal and lateral projections of the chest are submitted. FINDINGS: The cardiomediastinal silhouette is not enlarged. The pulmonary vascularity is within normal limits. The lungs are clear based on chest radiography. There is no costophrenic angle blunting. IMPRESSION: Unremarkable plain film examination of the chest. Electronically authenticated by: CANDICE PONCE Date: 2021-09-06 20:[address] [facility] [place] [facility] [facility] 09, 2021 Smiley Urias, [address] [facility] [address] [place] [address] [place] [address] Re: NABILA JEWELL Date of : 1985 Thank you for your referral of Nabila Jewell who was seen on consultation for abscess x 2. I have enclosed my consultation note for your review. Sincerely, Edson Davalos MD General Surgery Normal [facility] Facesheeton 04-08-2021 Facesheet [id number] 0CD:[address] [facility] Ambulatory Clinical Summaryo n 04-03-2021 Ambulatory Clinical Summary {[id number] }[id number] Normal [facility] Physician Referralon 021 Physician Referral [id number] 00 [id number] 0CD:[address] [facility] SYPHILIS SCREENING WITH REFL EXon 03-06-2021 SYPHILIS TOTAL AB Non-Reactive Normal NONREACTIVE [facility] Comment on above: Result Comment: No s ignificant level of Treponema pallidum antibody detected. Repeat testing in 2 to 4 weeks may be considered if early infection or incubating syphilis infection is suspected. Performed By: #### S YPHR #### [facility] [address] [place] [address] BILIRUBIN,DIRECTon Bilirubin.indirect [Mass/Vol] 0.1 mg/dL Normal 0.0 - 0.3 [facility] Comment on above: Performed By: #### D BILI #### [address] [id number] CBC AND DIFFERENTIALon 03-05 % AUTOMATED IMMATURE GRAN 0.3 % Normal 0.0 - 0.9 [facility] Comment on above: Result Comment: Cassia ture Granulocyte Count (IG) includes promyelocytes, myelocytes and metamyelocytes but does not include bands. Percent differential counts (%) should be interpreted in the context of the absolute cell counts (cells/L). Performed By: #### C BCDF #### [address] [id number] Basophils (Bld) [#/Vol] 0.02 10*3/uL Normal 0.00 - 0.10 [facility] Comment on above: Performed By: #### C BCDF #### [address] [id number] Basophils/100 WBC (Bld) 0.3 % Normal 0.0 - 2.0 [facility] Comment on above: Performed By: #### C BCDF #### [address] [id number] Eosinophils (Bld) [#/Vol] 0.04 10*3/uL Normal 0.00 - 0.70 [facility] Comment on above: Performed By: #### C BCDF #### [address] [id number] Eosinophils/100 WBC (Bld) 0.6 % Normal 0.0 - 6.0 [facility] Comment on above: Performed By: #### C BCDF #### [address] [id number] Erythrocyte distribution width (RBC) [Ratio] 12.2 % Normal 11.5 - 14.5 [facility] Comment on above: Performed By: #### C BCDF #### [address] [id number] Hematocrit (Bld) [Volume fraction] 38.3 % Normal 36.0 - 46.0 [facility] Comment on above: Performed By: #### C BCDF #### [address] [id number] Hemoglobin (Bld) [Mass/Vol] 12.0 g/dL Normal 12.0 - 16.0 [facility] Comment on above: Performed By: #### C BCDF #### [address] [id number] Lymphocytes (Bld) [#/Vol] 2.33 10*3/uL Normal 1.20 - 4.80 [facility] Comment on above: Performed By: #### C BCDF #### [address] [id number] Lymphocytes/100 WBC (Bld) 35.6 % Normal 13.0 - 44.0 [facility] Comment on above: Performed By: #### C BCDF #### [address] [id number] MCHC (RBC) [Mass/Vol] 31.3 g/dL Low 32.0 - 36.0 [facility] Comment on above: Performed By: #### C BCDF #### [address] [id number] MCV (RBC) [Entitic vol] 93 fL Normal 80 - 100 [facility] Comment on above: Performed By: #### C BCDF #### [address] [id number] Monocytes (Bld) [#/Vol] 0.34 10*3/uL Normal 0.10 - 1.00 [facility] Comment on above: Performed By: #### C BCDF #### [address] [id number] Monocytes/100 WBC (Bld) 5.2 % Normal 2.0 - 10.0 [facility] Comment on above: Performed By: #### C BCDF #### [address] [id number] Neutrophils (Bld) [#/Vol] 3.80 10*3/uL Normal 1.20 - 7.70 [facility] Comment on above: Performed By: #### C BCDF #### [address] [id number] Neutrophils/100 WBC (Bld) 58.0 % Normal 40.0 - 80.0 [facility] Comment on above: Performed By: #### C BCDF #### [address] [id number] Platelets (Bld) [#/Vol] 221 10*3/uL Normal 150 - 450 [facility] Comment on above: Performed By: #### C BCDF #### [address] [id number] RBC 4.13 x10E12/L Normal 4.00 - 5.20 [facility] Comment on above: Performed By: #### C BCDF #### [address] [id number] WBC (Bld) [#/Vol] 6.6 10*3/uL Normal 4.4 - 11.3 [facility] Comment on above: Performed By: #### C BCDF #### [address] [id number] COMPREHENSIVE PANELon 2020 Albumin [Mass/Vol] 3.6 g/dL Normal 3.4 - 5.0 [facility] Comment on above: Performed By: #### C MP #### [address] [id number] ALP [Catalytic activity/Vol] 77 U/L Normal 33 - 110 [facility] Comment on above: Performed By: #### C MP #### [address] [id number] ALT [Catalytic activity/Vol] 20 U/L Normal 7 - 45 [facility] Comment on above: Result Comment: Cony ents treated with Sulfasalazine may generate falsely decreased results for ALT. Performed By: #### C MP #### [address] [id number] Anion gap [Moles/Vol] 10 mmol/L Normal 10 - 20 [facility] Comment on above: Performed By: #### C MP #### [address] [id number] AST [Catalytic activity/Vol] 24 U/L Normal 9 - 39 [facility] Comment on above: Performed By: #### C MP #### [address] [id number] Bilirubin [Mass/Vol] 0.5 mg/dL Normal 0.0 - 1.2 [facility] Comment on above: Performed By: #### C MP #### [address] [id number] Calcium [Mass/Vol] 9.2 mg/dL Normal 8.6 - 10.3 [facility] Comment on above: Performed By: #### C MP #### [address] [id number] Chloride [Moles/Vol] 101 mmol/L Normal 98 - 107 [facility] Comment on above: Performed By: #### C MP #### [address] [id number] Creatinine [Mass/Vol] 0.85 mg/dL Normal 0.50 - 1.05 [facility] Comment on above: Performed By: #### C MP #### [address] [id number] GFR- AM. >60 Normal >60 [facility] Comment on above: Result Comment: CALC ULATIONS OF ESTIMATED GFR ARE PERFORMED USING THE MDRD STUDY EQUATION FOR THE IDMS-TRACEABLE CREATININE METHODS. CLIN CHEM 2007;53:766-72 Performed By: #### C MP #### [address] [id number] GFR-NON AM. >60 Normal >60 [facility] Comment on above: Performed By: #### C MP #### [address] [id number] Glucose [Mass/Vol] 75 mg/dL Normal 74 - 99 [facility] Comment on above: Performed By: #### C MP #### [address] [id number] HCO3 (Bld) [Moles/Vol] 30 mmol/L Normal 21 - 32 [facility] Comment on above: Performed By: #### C MP #### [address] [id number] Potassium [Moles/Vol] 4.1 mmol/L Normal 3.5 - 5.3 [facility] Comment on above: Performed By: #### C MP #### [address] [id number] Protein [Mass/Vol] 7.0 g/dL Normal 6.4 - 8.2 [facility] Comment on above: Performed By: #### C MP #### [address] [id number] Sodium [Moles/Vol] 137 mmol/L Normal 136 - 145 [facility] Comment on above: Performed By: #### C MP #### [address] [id number] Urea nitrogen [Mass/Vol] 21 mg/dL Normal 6 - 23 [facility] Comment on above: Performed By: #### C MP #### [address] [id number] HEPATITIS PANEL,ACUTE (HCFA) on 03-05-2021 HEPATITIS B CORE AB,IGM Non-Reactive Normal NONREACTIVE [facility] Comment on above: Result Comment: Resu lts from patients taking biotin supplements or receiving high-dose biotin therapy should be interpreted with caution due to possible interference with this test. Providers may contact their local laboratory for further information. Performed By: #### H EPA2 #### [facility] [address] [place] [address] HEPATITIS C AB Non-Reactive Normal NONREACTIVE [facility] Comment on above: Result Comment: Resu lts from patients taking biotin supplements or receiving high-dose biotin therapy should be interpreted with caution due to possible interference with this test. Providers may contact their local laboratory for further information. Performed By: #### H EPA2 #### [facility] [address] [place] [id number] HEPATITIS A AB-IGM Non-Reactive Normal NONREACTIVE [facility] Comment on above: Result Comment: Biot in interference may cause falsely decreased results. Patients taking a Biotin dose of up to 5 mg/day should refrain from taking Biotin for 24 hours before sample collection. Providers may contact their local laboratory for further information. Performed By: #### H EPA2 #### [facility] [address] [place] [id number] HEP.B SURFACE AG Non-Reactive Normal NONREACTIVE [facility] Comment on above: Result Comment: Biot in interference may cause falsely decreased results. Patients taking a Biotin dose of up to 5 mg/day should refrain from taking Biotin for 24 hours before sample collection. Providers may contact their local laboratory for further information. Performed By: #### H EPA2 #### [facility] [address] [place] [id number] HIV 1/2 ANTIGEN/ANTIBODY SCR EEN WITH REFLEX TO CONFIRMATIONon 03-05-2021 HIV 1/2 AG/AB SCREEN Non-Reactive Normal NONREACTIVE [facility] Comment on above: Result Comment: HIV Ag/Ab screen is performed using the Siemens [employer] HIV Ag/Ab Combo assay which detects the presence of HIV p24 antigen as well as antibodies to HIV-1 (Group M and O) and HIV-2. . No laboratory evidence of HIV infection. If acute HIV infection is suspected, consider testing for HIV RNA by PCR (viral load). Performed By: #### H IV #### [facility] [address] [place] [address] SYPHILIS SCREENING WITH REFL EXon 03-05-2021 Lab Specimen Source Normal [facility] Comment on above: Performed By: #### S YPHR #### [facility] [address] [place] [address] Performed By: #### H EPA2 #### [facility] [address] [place] [address] Performed By: #### H IV #### [facility] [address] [place] [address] HEPATITIS PANEL,ACUTE (HCFA) on 02-29-2020 HEPATITIS A AB-IGM NONREACTIVE Normal NONREACTIVE [facility] Comment on above: Result Comment: Biot in interference may cause falsely decreased results. Patients taking a Biotin dose of up to 5 mg/day should refrain from taking Biotin for 24 hours before sample collection. Providers may contact their local laboratory for further information. Performed By: #### H EPA2 #### [facility] [id number] [place] [address] HEPATITIS C AB NONREACTIVE Normal NONREACTIVE [facility] Comment on above: Result Comment: Resu lts from patients taking biotin supplements or receiving high-dose biotin therapy should be interpreted with caution due to possible interference with this test. Providers may contact their local laboratory for further information. Performed By: #### H EPA2 #### [facility] [address] [place] [address] HEPATITIS B CORE AB,IGM NONREACTIVE Normal NONREACTIVE [facility] Comment on above: Result Comment: Resu lts from patients taking biotin supplements or receiving high-dose biotin therapy should be interpreted with caution due to possible interference with this test. Providers may contact their local laboratory for further information. Performed By: #### H EPA2 #### [facility] [address] [place] [address] HEP.B SURFACE AG NONREACTIVE Normal NONREACTIVE [facility] Comment on above: Result Comment: Biot in interference may cause falsely decreased results. Patients taking a Biotin dose of up to 5 mg/day should refrain from taking Biotin for 24 hours before sample collection. Providers may contact their local laboratory for further information. Performed By: #### H EPA2 #### [facility] [address] [place] [id number] HIV ANTIGEN/ANTIBODY SCREENo n 02-29-2020 HIV AG/AB SCREEN NONREACTIVE Normal NONREACTIVE [facility] Comment on above: Result Comment: HIV Ag/Ab screen is performed using the Siem[employer] HIV Ag/Ab Combo assay which detects the presence of HIV p24 antigen as well as antibodies to HIV-1 (Group M and O) and HIV-2. Performed By: #### H IV #### [facility] [address] [place] [address] SYPHILIS SCREENING WITH REFL EXon 02-29-2020 SYPHILIS TOTAL AB NONREACTIVE Normal NONREACTIVE [facility] Comment on above: Result Comment: No s ignificant level of Treponema pallidum antibody detected. Repeat testing in 2 to 4 weeks may be considered if early infection or incubating syphilis infection is suspected. Performed By: #### S YPHR #### [facility] [address] [place] [address] BILIRUBIN,DIRECTon 0 Bilirubin.direct [Mass/Vol] 0.1 mg/dL Normal 0.0 - 0.3 [facility] Comment on above: Performed By: #### D BILI #### [address] [id number] CBCon 02-28-2020 Erythrocyte distribution width (RBC) [Ratio] 12.6 % Normal 11.5 - 14.5 [facility] Comment on above: Performed By: #### C BC #### [address] [id number] Hematocrit (Bld) [Volume fraction] 38.4 % Normal 36.0 - 46.0 [facility] Comment on above: Performed By: #### C BC #### [address] [id number] Hemoglobin (Bld) [Mass/Vol] 12.5 g/dL Normal 12.0 - 16.0 [facility] Comment on above: Performed By: #### C BC #### [address] [id number] MCHC (RBC) [Mass/Vol] 32.6 g/dL Normal 32.0 - 36.0 [facility] Comment on above: Performed By: #### C BC #### [address] [id number] MCV (RBC) [Entitic vol] 88 fL Normal 80 - 100 [facility] Comment on above: Performed By: #### C BC #### [address] [id number] Platelets (Bld) [#/Vol] 350 10*3/uL Normal 150 - 450 [facility] Comment on above: Performed By: #### C BC #### [address] [id number] RBC (Bld) [#/Vol] 4.34 x10E12/L Normal 4.00 - 5.20 [facility] Comment on above: Performed By: #### C BC #### [address] [id number] WBC (Bld) [#/Vol] 5.6 10*3/uL Normal 4.4 - 11.3 [facility] Comment on above: Performed By: #### C BC #### [address] [id number] COMPREHENSIVE PANELon 2019 Albumin [Mass/Vol] 4.1 g/dL Normal 3.4 - 5.0 [facility] Comment on above: Performed By: #### C MP #### [address] [id number] ALP [Catalytic activity/Vol] 105 U/L Normal 33 - 110 [facility] Comment on above: Performed By: #### C MP #### [address] [id number] ALT [Catalytic activity/Vol] 24 U/L Normal 7 - 45 [facility] Comment on above: Result Comment: Cony ents treated with Sulfasalazine may generate falsely decreased results for ALT. Performed By: #### C MP #### [address] [id number] Anion gap [Moles/Vol] 10 mmol/L Normal 10 - 20 [facility] Comment on above: Performed By: #### C MP #### [address] [id number] AST [Catalytic activity/Vol] 22 U/L Normal 9 - 39 [facility] Comment on above: Performed By: #### C MP #### [address] [id number] Bilirubin [Mass/Vol] 0.4 mg/dL Normal 0.0 - 1.2 [facility] Comment on above: Performed By: #### C MP #### [address] [id number] Calcium [Mass/Vol] 9.1 mg/dL Normal 8.6 - 10.3 [facility] Comment on above: Performed By: #### C MP #### [address] [id number] Chloride [Moles/Vol] 101 mmol/L Normal 98 - 107 [facility] Comment on above: Performed By: #### C MP #### [address] [id number] Creatinine [Mass/Vol] 0.79 mg/dL Normal 0.50 - 1.05 [facility] Comment on above: Performed By: #### C MP #### [address] [id number] GFR- AM. >60 Normal >60 [facility] Comment on above: Result Comment: CALC ULATIONS OF ESTIMATED GFR ARE PERFORMED USING THE MDRD STUDY EQUATION FOR THE IDMS-TRACEABLE CREATININE METHODS. CLIN CHEM 2007;53:766-72 Performed By: #### C MP #### [address] [id number] GFR-NON AM. >60 Normal >60 [facility] Comment on above: Performed By: #### C MP #### [address] [id number] Glucose [Mass/Vol] 90 mg/dL Normal 74 - 99 [facility] Comment on above: Performed By: #### C MP #### [address] [id number] HCO3 (Bld) [Moles/Vol] 28 mmol/L Normal 21 - 32 [facility] Comment on above: Performed By: #### C MP #### [address] [id number] Potassium [Moles/Vol] 4.4 mmol/L Normal 3.5 - 5.3 [facility] Comment on above: Performed By: #### C MP #### [address] [id number] Protein [Mass/Vol] 8.1 g/dL Normal 6.4 - 8.2 [facility] Comment on above: Performed By: #### C MP #### [address] [id number] Sodium [Moles/Vol] 135 mmol/L Low 136 - 145 [facility] Comment on above: Performed By: #### C MP #### [address] [id number] Urea nitrogen [Mass/Vol] 21 mg/dL Normal 6 - 23 [facility] Comment on above: Performed By: #### C MP #### [address] [id number] SYPHILIS SCREENING WITH REFL EXon 02-28-2020 Lab Specimen Source Normal [facility] Comment on above: Performed By: #### S YPHR #### [facility] [address] [place] [address] Performed By: #### H IV #### [facility] [address] [place] [address] Performed By: #### H EPA2 #### [facility] [address] [place] [address] APTTon 08-13-2017 aPTT 27.9 s Normal 23.2-34.4 [facility] Comment on above: Result Comment: Perf ormed at [address] [place] [address] [phone] Performed By: #### C DP, PT, PTT, BNP, BMP, TROPI ####[address] [place] [address] Basic Metabolic Profon 08-13 (cont.) Normal [facility] Comment on above: Result Comment: Aver age GFR for 30-39 years old: 107 mL/min/1.73sq mChronic Kidney Disease: <60 mL/min/1.73sq mKidney failure: <15 mL/min/1.73sq meGFR calculated using average adult body mass. Additional eGFR calculator available at:http://www.[employer]/multiple_crcl_2012.htm Performed By: #### C DP, PT, PTT, BNP, BMP, TROPI ####[address] [place] [address] Anion gap 11 mmol/L Normal 9-17 [facility] Comment on above: Performed By: #### C DP, PT, PTT, BNP, BMP, TROPI ####[address] [place] [address] BUN/CRE Ratio 21 High 9-20 [facility] Comment on above: Performed By: #### C DP, PT, PTT, BNP, BMP, TROPI ####[address] [place] [address] Calcium 9.6 mg/dL Normal 8.6-10.4 [facility] Comment on above: Performed By: #### C DP, PT, PTT, BNP, BMP, TROPI ####[address] [place] [address] Chloride 96 mmol/L Low 98-107 [facility] Comment on above: Performed By: #### C DP, PT, PTT, BNP, BMP, TROPI ####[address] [place] [address] CO2 31 mmol/L Normal 20-31 [facility] Comment on above: Performed By: #### C DP, PT, PTT, BNP, BMP, TROPI ####[address] [place] [address] Creatinine 0.73 mg/dL Normal 0.50-0.90 [facility] Comment on above: Performed By: #### C DP, PT, PTT, BNP, BMP, TROPI ####[address] [place] [address] eGFR (non-black) mL/min/{1.73_m2} Normal >60 [facility] Comment on above: Performed By: #### C DP, PT, PTT, BNP, BMP, TROPI ####[address] [place] [address] Glucose mass conc 101 mg/dL High 70-99 [facility] Comment on above: Performed By: #### C DP, PT, PTT, BNP, BMP, TROPI ####[address] [place] [address] Potassium molar conc 3.2 mmol/L Low 3.7-5.3 [facility] Comment on above: Performed By: #### C DP, PT, PTT, BNP, BMP, TROPI ####[address] [place] [address] Sodium 138 mmol/L Normal 135-144 [facility] Comment on above: Performed By: #### C DP, PT, PTT, BNP, BMP, TROPI ####[address] [place] [address] Staging: Normal [facility] Comment on above: Result Comment: Stag e 1: Some kidney damage normal GFRStage 2: Mild kidney damage GFR 60-89Stage 3: Moderate kidney damage GFR 30-59Stage 4: Severe kidney damage GFR 15-29Stage 5: Severe kidney damage GFR <15ESRD - chronic treatment by dialysis or transplantPerformed at [address] [place] [address] Performed By: #### C DP, PT, PTT, BNP, BMP, TROPI ####[address] [place] [address] Urea nitrogen 15 mg/dL Normal 6-20 [facility] Comment on above: Performed By: #### C DP, PT, PTT, BNP, BMP, TROPI ####[address] [place] [address] Brain Natri. Peptideon 08-13 BNP pg/mL Normal <300 [facility] Comment on above: Result Comment: Pro- BNP results cannot be compared to BNP results. Performed By: #### C DP, PT, PTT, BNP, BMP, TROPI ####[address] [place] [address] BNP Normal [facility] Comment on above: Result Comment: Pro- BNP Reference Range:Rule Out: <300Grey Zone: Age <50 300-450 Age 50-75 300-900 Age >75 300-1800Usually represents mild to moderate HF but other cardiopulmonary causes cannot be ruled out.Rule In: Age <50 >450 Age 50-75 >900 Age >75 >1800Performed at [address] [place] [address] Performed By: #### C DP, PT, PTT, BNP, BMP, TROPI ####[address] [place] [address] CBC with Diffon 08-13-2017 Abs. Basophil 0.00 k/uL Normal 0.0-0.2 [facility] Comment on above: Result Comment: Perf ormed at [address] [place] [address] Performed By: #### C DP, PT, PTT, BNP, BMP, TROPI ####[address] [place] [address] Abs.Neutrophil (Seg) 4.50 k/uL Normal 1.8-7.7 [facility] Comment on above: Performed By: #### C DP, PT, PTT, BNP, BMP, TROPI ####[address] , [facility]83 Basophils/100 WBC Auto (Bld) 0 % Normal 0-2 [facility] Comment on above: Performed By: #### C DP, PT, PTT, BNP, BMP, TROPI ####[address] [place] [address] Eosinophils 0.20 10*3/uL Normal 0.0-0.4 [facility] Comment on above: Performed By: #### C DP, PT, PTT, BNP, BMP, TROPI ####[address] , [facility]83 Eosinophils/100 leukocytes 2 % Normal 0-8 [facility] Comment on above: Performed By: #### C DP, PT, PTT, BNP, BMP, TROPI ####[address] , [facility]83 Erythrocyte distribution width Auto Ratio (RBC) 15.0 % Normal 12.1-15.2 [facility] Comment on above: Performed By: #### C DP, PT, PTT, BNP, BMP, TROPI ####[address] , [facility]83 Erythrocytes (RBC) 4.75 10*6/uL Normal 4.0-5.2 [facility] Comment on above: Performed By: #### C DP, PT, PTT, BNP, BMP, TROPI ####[address] , [facility]83 Hematocrit (HCT) 41.0 % Normal 36-46 [facility] Comment on above: Performed By: #### C DP, PT, PTT, BNP, BMP, TROPI ####[address] , [facility]83 Hemoglobin mass conc (Bld) 13.7 g/dL Normal 12.0-16.0 [facility] Comment on above: Performed By: #### C DP, PT, PTT, BNP, BMP, TROPI ####[address] [place] [address] Lymphocytes 2.60 10*3/uL Normal 1.0-4.8 [facility] Comment on above: Performed By: #### C DP, PT, PTT, BNP, BMP, TROPI ####[address] , [facility]83 Lymphocytes/100 leukocytes 34 % Normal 24-44 [facility] Comment on above: Performed By: #### C DP, PT, PTT, BNP, BMP, TROPI ####[address] , [facility]83 MCH 28.8 pg Normal 26-34 [facility] Comment on above: Performed By: #### C DP, PT, PTT, BNP, BMP, TROPI ####[address] , [facility]83 MCHC mass conc (RBC) 33.4 g/dL Normal 31-37 [facility] Comment on above: Performed By: #### C DP, PT, PTT, BNP, BMP, TROPI ####[address] , [facility]83 MCV 86.3 fL Normal 80-100 [facility] Comment on above: Performed By: #### C DP, PT, PTT, BNP, BMP, TROPI ####[address] , [facility]83 Monocytes 0.40 10*3/uL Normal 0.0-1.0 [facility] Comment on above: Performed By: #### C DP, PT, PTT, BNP, BMP, TROPI ####[address] , [facility]83 Monocytes/100 leukocytes 6 % Normal 0-12 [facility] Comment on above: Performed By: #### C DP, PT, PTT, BNP, BMP, TROPI ####[address] [place] [address] Neutrophil (Seg) 58 % Normal 36-66 [facility] Comment on above: Performed By: #### C DP, PT, PTT, BNP, BMP, TROPI ####[address] [place] [address] Platelet mean volume (PMV) 6.7 fL Normal 6.0-12.0 [facility] Comment on above: Performed By: #### C DP, PT, PTT, BNP, BMP, TROPI ####[address] [place] [address] Platelets 322 10*3/uL Normal 140-450 [facility] Comment on above: Performed By: #### C DP, PT, PTT, BNP, BMP, TROPI ####[address] [place] [address] WBC (Leukocytes) 7.7 10*3/uL Normal 3.5-11.0 [facility] Comment on above: Performed By: #### C DP, PT, PTT, BNP, BMP, TROPI ####[address] [place] [address] Auto Diff Performed NOT REPORTED Normal [facility] Comment on above: Performed By: #### C DP, PT, PTT, BNP, BMP, TROPI ####[address] [place] [address] Erythrocyte morphology NOT REPORTED Normal [facility] Comment on above: Performed By: #### C DP, PT, PTT, BNP, BMP, TROPI ####[address] [place] [address] Erythrocytes (RBC) NOT REPORTED Normal [facility] Comment on above: Performed By: #### C DP, PT, PTT, BNP, BMP, TROPI ####[address] [place] [address] Granulocytes/100 WBC (Bld) NOT REPORTED Normal 0.00-0.30 [facility] Comment on above: Performed By: #### C DP, PT, PTT, BNP, BMP, TROPI ####[address] [place] [address] Immature granulocytes #/vol (Bld) NOT REPORTED Normal 0 [facility] Comment on above: Performed By: #### C DP, PT, PTT, BNP, BMP, TROPI ####[address] [place] [address] Platelets NOT REPORTED Normal [facility] Comment on above: Performed By: #### C DP, PT, PTT, BNP, BMP, TROPI ####[address] [place] [address] WBC Morphology NOT REPORTED Normal [facility] Comment on above: Performed By: #### C DP, PT, PTT, BNP, BMP, TROPI ####[address] [place] [address] ED Provider Noteon 8 HIM IP Note OR Tuber Operator Normal [facility] PTon 08-13-2017 INR Coag RelTime (PPP) 0.9 {INR} Normal 0.9-1.2 [facility] Comment on above: Result Comment: Perf ormed at [address] [place] [address] Performed By: #### C DP, PT, PTT, BNP, BMP, TROPI ####[address] [place] [address] Prothrombin time (PT) Coag time (PPP) 9.7 s Normal 9.7-12.2 [facility] Comment on above: Performed By: #### C DP, PT, PTT, BNP, BMP, TROPI ####[address] [place] [address] Troponinon 08-13-2017 Troponin I.cardiac mass conc Normal [facility] Comment on above: Result Comment: Refe rence Range: <0.03 Within reference range. 0.03-0.09 Possible myocardial damage.Repeat at appropriate intervals to rule out chronic elevation. >= 0.10 Indicative of myocardial damage.Patients with high levels of Biotin oral intake (i.e >5mg/day) may have falsely decreased Troponin T levels. Samples collected within 8 hours of biotin intake may require additional information for diagnosis.Performed at [address] [place] [address] Performed By: #### C DP, PT, PTT, BNP, BMP, TROPI ####[address] [place] [address] Troponin T.cardiac mass conc ug/L Normal <0.03 [facility] Comment on above: Result Comment: Trop onin T results cannot be compared to Troponin-I results. Performed By: #### C DP, PT, PTT, BNP, BMP, TROPI ####[address] [place] [address] XR CHEST PORTABLEon 08-13-19 18 XR CHEST PORTABLE REPORT: Portable AP radiograph of the chest obtained at 1125 hoursINDICATION: Chest painFINDINGS: The lungs are well expanded and clear bilaterally. No focal consolidation, pleural effusion or pneumothorax seen. Normal cardiac and mediastinal silhouettes. No free intraperitoneal air. Final report electronically signed by Sruthi Mo on 08/13/2017 11:50 AMIMPRESSION: Normal chestInterpreted by:RACHEL Haskinsigned by:Sruthi Mo MD08/13/17inal result Normal [facility] Vital Signs Date Time Vital Sign Value Performing Clinician Facility 02-03-2022 10:50-0400 Body height 154.9 cm Chas Romero DO Work Phone: [facility] 02-03-2022 10:50-0400 Body weight 122.7 kg Chasmina Romero DO Work Phone: [facility] 02-03-2022 10:50-0400 Diastolic blood pressure 84 mm[Hg] Chas Romero DO Work Phone: [facility] 02-03-2022 10:50-0400 Heart rate 66 /min Chas Romero DO Work Phone: [facility] 02-03-2022 10:50-0400 SaO2% (BldA) [Mass fraction] 98 % Chas Romero DO Work Phone: [facility] 02-03-2022 10:50-0400 Systolic blood pressure 117 mm[Hg] Chas Romero DO Work Phone: [facility] 01-01-2022 11:45-0400 Body height 155.57 cm Rolando Turner Other [facility] [facility] Other 01-01-2022 11:45-0400 Body mass index (BMI) [Ratio] 42.12 kg/m2 Rolando Miracle Other [facility] [facility] Other 01-01-2022 11:45-0400 Body weight 101.97 kg Rolando Miracle Other [facility] Other 11-13-2021 10:45-0400 Body height 155.57 cm Rolando Miracle Other [facility] Other 11-13-2021 10:45-0400 Body mass index (BMI) [Ratio] 42.12 kg/m2 Rolando Miracle Other [facility] Other 11-13-2021 10:45-0400 Body weight 101.97 kg Rolando Miracle Other [facility] Other 11-12-2021 13:49-0400 Body height 154.9 cm Chas Romero DO Work Phone: [facility] 11-12-2021 13:49-0400 Body weight 118.62 kg Chas Romero DO Work Phone: [facility] 11-12-2021 13:49-0400 Diastolic blood pressure 82 mm[Hg] Chas Romero DO Work Phone: [facility] 11-12-2021 13:49-0400 Heart rate 69 /min Chas Romero DO Work Phone: [facility] 11-12-2021 13:49-0400 SaO2% (BldA) [Mass fraction] 100 % Chas Romero DO Work Phone: [facility] 11-12-2021 13:49-0400 Systolic blood pressure 120 mm[Hg] Chas Romero DO Work Phone: [facility] 09-18-2021 11:15-0400 Body height 155.57 cm Rolando Turner Other [employer] Other 09-18-2021 11:15-0400 Body mass index (BMI) [Ratio] 42.12 kg/m2 Rolando Turner Other [employer] Other 09-18-2021 11:15-0400 Body weight 101.97 kg Rolando Turner Other [employer] Other 07-24-2021 11:15-0500 Body height 155.57 cm Rolando Turner Other [facility] Other 07-24-2021 11:15-0500 Body mass index (BMI) [Ratio] 47.03 kg/m2 Rolando Turner Other [facility] Other 07-24-2021 11:15-0500 Body weight 113.85 kg Rolando Turner Other [facility] Other 06-12-2021 11:00-0500 Body height 155.57 cm Rolando Miracle Other [facility] Other 06-12-2021 11:00-0500 Body mass index (BMI) [Ratio] 46.85 kg/m2 Rolando Miracle Other [facility] Other 06-12-2021 11:00-0500 Body weight 113.4 kg Rolando Miracle Other [facility] Other 05-15-2021 14:00-0500 Body height 155.57 cm Rolando Miracle Other [facility] Other 05-15-2021 14:00-0500 Body mass index (BMI) [Ratio] 42.12 kg/m2 Rolando Miracle Other [facility] Other 05-15-2021 14:00-0500 Body weight 101.97 kg Rolando Miracle Other [facility] Other 04-17-2021 10:30-0400 Body height 155.57 cm Rolando Miracle Other [facility] Other 04-17-2021 10:30-0400 Body mass index (BMI) [Ratio] 42.12 kg/m2 Rolando Miracle Other [employer] Other 04-17-2021 10:30-0400 Body weight 101.97 kg Rolando Miracle Other [employer] Other Encounters Encounter Date Encounter Type Care Provider Facility Start: 06-15-2023 End: 06-16-2023 ambulatory Fabián Archer MD [facility] Start: 04-27-2023 End: 04-28-2023 ambulatory Fabián Archer MD [facility] Start: 03-27-2023 ambulatory Luiz Garsia acility:[facility] Start: 03-04-2023 ambulatory [facility] Start: 02-23-2023 ambulatory [facility] Start: 01-12-2023 ambulatory [facility] Start: 01-01-2023 End: 01-01-2023 ambulatory [facility] Start: 12-01-2022 ambulatory [facility] Start: 09-29-2022 ambulatory [facility] Start: 09-15-2022 ambulatory [facility] Start: 09-15-2022 Encounter for other preprocedural examination [facility] Start: 08-22-2022 End: 08-23-[address] SMILEY URIAS . Facility:[facility] Start: 08-21-2022 ambulatory CAROLE PONCE [facility] Start: 08-06-2022 ambulatory PARRISH MCDONOUGH [facility] Start: 07-02-2022 ambulatory [facility] Start: 05-15-2022 End: 05-15-2022 ambulatory [facility] Start: 05-12-2022 End: 05-13-2022 ambulatory [facility] Start: 05-05-2022 End: 05-06-2022 ambulatory [facility] Start: 04-30-2022 ambulatory [facility] Start: 04-18-2022 End: 04-19-[address] SMILEY URIAS . Facility:[facility] Start: 04-17-2022 ambulatory [facility] Start: 04-03-2022 End: 04-03-2022 ambulatory [facility] Start: 04-01-2022 End: 04-01-2022 ambulatory [facility] Start: 03-06-2022 ambulatory SMILEY URIAS Facility:[facility] Start: 02-03-2022 End: 02-03-2022 ambulatory SMILEY URIAS Facility:[facility] Start: 02-03-2022 End: 02-03-2022 Patient encounter procedure Chas Romero DO Work Phone: Neurology Comment on above: Right leg weakness ( Primary Dx) Start: 01-31-2022 End: 02-22-[address] SMILEY URIAS . Facility: Start: 01-30-2022 Telephone encounter Chas laws DO Work Phone: Neurology Comment on above: Results Start: 01-27-2022 End: 01-28-[address] SMILEY URIAS . Facility: Start: 01-23-2022 End: 01-23-2022 ambulatory SMILEY URIAS Facility:[facility] Start: 01-23-2022 End: 01-23-2022 ambulatory Emg 400) Work Phone: Neurology Comment on above: EMG Start: 01-23-2022 End: 01-23-2022 Patient encounter procedure Emg 2 Neur Rej (Max Weight: 400) Work Phone: ANDREA SAUCEDA [facility] Start: 01-22-2022 End: 01-23-[address] SMILEY URIAS . Facility: Start: 01-13-2022 End: 01-14-2022 ambulatory NUZHAT ARZOLA Facility:[facility] Start: 01-01-2022 End: 01-01-2022 ambulatory Rolando Turner Other [employer] Other Start: 01-01-2022 Office outpatient vi sit 15 minutes [facility] Start: 12-06-2021 Telephone encounter Chas laws DO Work Phone: Neurology Comment on above: Insurance Authorizat ion Start: 11-13-2021 End: 11-13-2021 ambulatory Rolando Turner Other [employer] Other Start: 11-13-2021 Office outpatient vi sit 15 minutes Rolando Turner [facility] Start: 11-12-2021 End: 11-12-2021 ambulatory CHAS ROMERO Facility:[facility] Start: 11-12-2021 End: 11-12-2021 Patient encounter procedure Chas Romero DO Work Phone: Neurology Comment on above: Right leg weakness ( Primary Dx) Start: 10-22-2021 Telephone encounter Chsa laws DO Work Phone: Neurology Comment on above: Received Outside Med ical Records Start: 10-02-2021 End: 10-16-[address] SMILEY URIAS . Facility: Start: 09-30-2021 End: 09-30-2021 ambulatory Rolando Turner Other [employer] Other Start: 09-30-2021 Telephone encounter Rolando POWELL [facility] Start: 09-24-2021 End: 09-26-2021 ambulatory UNKNOWN PROVIDER Facility:[facility] Start: 09-18-2021 End: 09-18-2021 ambulatory Rolando Turner Other [employer] Other Start: 09-18-2021 Office outpatient vi sit 15 minutes Rolando Turner [facility] Start: 09-06-2021 End: 09-07-2021 ambulatory [facility] Facility: Start: 07-24-2021 End: 07-24-2021 ambulatory Rolando Turner Other [employer] Other Start: 07-24-2021 Office outpatient vi sit 15 minutes Rolando Turner [facility] Start: 06-12-2021 End: 06-12-2021 ambulatory Rolando Turner Other [employer] Other Start: 06-12-2021 Office outpatient vi sit 15 minutes Rolando Turner [facility] Start: 05-15-2021 End: 05-15-2021 ambulatory Rolando Turner Other [employer] Other Start: 05-15-2021 Office outpatient vi sit 15 minutes Rolando Turner [facility] Start: 04-17-2021 Office outpatient ne w 45 minutes Rolando Turner [facility] Start: 08-13-2017 End: 08-13-2017 Emergency department patient visit EDSON VILLEGAS [facility] Procedures Date Procedure Procedure Detail Performing Clinician Start: 01-23-2022 Nerve conduction rosa dies 5-6 studies Chas Romero DO Work Phone: Start: 08-13-2017 Radiologic exam ches t single view EDSON VILLEGAS Start: 08-13-2017 APTT EDSON ZAMAN Start: 08-13-2017 BASIC METABOLIC PANEL M ALEX BAKARI Start: 08-13-2017 BRAIN NATRIURETIC PEPTIDE EDSON VILLEGAS Start: 08-13-2017 CBC WITH AUTO DIFFERENTIAL EDSON VILLEGAS Start: 08-13-2017 PROTIME-INR EDSON ZAMAN Start: 08-13-2017 TROPONIN EDSON ZAMAN Start: 08-13-2017 EKG 12-LEAD EDSON ZAMAN Start: 08-13-2017 INSERT PERIPHERAL IV ME CODY VILLEGAS Start: 08-13-2017 TELEMETRY MONITORING ME CODY VILLEGAS Start: 08-13-2017 VITAL SIGNS EDSON ZAMAN Plan of Treatment Date Care Activity Detail Author Start: 02-27-2022 Influenza vaccination [facility] Start: 09-01-2015 HPV TESTING HPV TESTING [facility] Start: 2006 PAP TESTING PAP TESTING [facility] Start: 2004 Urine microalbumin profile DTAP,TDAP,TD (1 - Tdap) [facility] Start: 09-01-2003 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 ANNUAL PCP TEAM CHRONIC DISEASE VISIT [facility] Start: 09-01-2003 BP CONTROLLED (<130/80) BP CON TROLLED (<130/80) [facility] Start: 09-01-2003 HEPATITIS C SCREENING HEPATITIS C SC MARYLU [facility] Start: 09-01-2003 HIV SCREENING HIV SCREENING [facility] Start: 1997 Adult depression screening assessment DEPRESSION SCREENING [facility] Start: 1990 COVID-19 VACCINE (#1) COVID-19 VACCI NE (#1) [facility] Start: 1990 COVID-19 VACCINE (1) COVID-19 VACCIN E (1) [facility] Start: 03-03-1986 COVID-19 VACCINE (#1) COVID-19 VACCI NE (#1) [facility] Start: 1985 HEPATITIS B (1 of 3 - 3-dose series) HEPATITIS B (1 of 3 - 3-dose series) [facility] End: 11-12-2022 EMG(NEURO/NI) EMG(NEURO/NI) EMG Routine Right leg weakness 1 Occurrences starting 11/12/2021 until 11/12/2022 [facility] Work Phone: Comment on above: 1 Occurrences starti ng 11/12/2021 until 11/12/2022 [facility] Payers Date Payer Category Payer Self-pay 2022 Medicaid [id number] 2021 Unknown [email or web address] COMP [id number] 2021-Present [phone] [place] [address] [facility] [id number] 2021 Unknown [id number] 2021 Unknown [id number] 2021 Worker's Compensation [id number] 2021 Worker's Compensation 2020 Medicaid [employer] 2020-Present [phone] [address] [place] [address] Medicaid 2020 Medicaid [employer] [id number] 2020-Present [phone] [address] [place] [address] Medicaid [id number] 2014 Unknown [id number] 1985 Unknown [id number] 32 1985 Unknown [id number] 47 1985 Unknown [id number] 93 1985 Unknown [id number] 93 1985 Unknown [id number] [id number] 93 1985 Unknown [id number] [id number] 93 1985 Unknown [id number] [id number] 93 1985 Unknown [id number] [id number] 93 1985 Unknown [id number] [id number] 93 1985 Unknown [id number] [id number] 93 1985 Unknown [id number] 96 1985 Unknown [id number] [id number] 96 1959 Medicaid [id number] 1959 Unknown [id number] Unknown [id number] 31 Social History Date Type Detail Facility Start: 09-29-2014 Tobacco smoking stat us MOIS Smokes tobacco daily [facility] End: 08-15-2019 History of tobacco use Cigarette Smoker [facility] Start: 09-29-2014 End: 02-03-2022 Cigarettes smoked current (pack per day) - Reported 0.5 [facility] Start: 09-29-2014 End: 02-03-2022 Tobacco use and exposure Smokeless tobacco non-user [facility] Start: 03-02-2015 End: 02-03-2022 Alcohol intake Current non-drinker of alcohol (finding) [facility] Start: 1985 Sex Assigned At Not on file [facility] Start: 11-12-2021 End: 02-03-2022 Tobacco smoking status NHIS Ex-smoker [facility] End: 08-15-2019 History of tobacco use Current smoker [facility] Start: 11-02-2021 End: 02-03-2022 Exposure to SARS-CoV-2 (event) Not sure [facility] Sex Assigned At Sex Assigned At [facility] [employer] Other Clinical Notes 04-03-2021 to 03-04-2023 Chas Romero DO - 02/03/2022 11:00 AM EDTTelephone Encounter - Chas Romero DO - 01/30/2022 10:43 AM KANDYTSofi Hernandez MD - 01/23/2022 1:10 PM EDT Note Date & Type Note Facility 03-04-2023 Note Subjective Patient ID: Nabila Jewell is a 37 y.o. female. Concussion Associated symptoms include headaches. This patient is a 37-year-old female seen in follow-up today for her complaints of occasional headache from a previous concussion. Her date of injury was almost 2 years ago on April 12, 2021. Since her last visit she has continued with some occasional headaches. She believes that her medications have not been very helpful. She has not yet returned to work with the restrictions that were provided previously. We did have an extensive discussion with the patient that she may be near the point of maximal medical improvement as a pertains to the headaches and the concussion diagnosis. She is almost at the 2-year point since her date of injury. We did also have a discussion with regard to tapering off her current medication regimen due to ineffectiveness and utilizing acetaminophen for the headaches. Review of Systems Neurological: Positive for headaches. All other systems reviewed and are negative. Objective Physical Exam General: No acute distress, conversant HEENT: Normocephalic nontraumatic, no lid lag, MMM Cardiac: Limbs warm to touch Lungs: Normal rate, no respiratory distress Extremity: No significant edema Psychiatric: Normal mood and affect Neurological: Alert and oriented, no dysarthria and no word finding difficulty, follows all commands, sensation intact to light touch Skin: Warm to touch, no obvious lesions MUSCULOSKELETAL: Strength: No focal deficits noted today. Special testing: Cranial nerve testing was intact. Assessment/Plan Diagnoses and all orders for this visit: Concussion without loss of consciousness, initial encounter At this point we will have the patient continue on her current work restrictions for the next 1 month. She will transition from her current medications to acetaminophen for headache control. We have discussed with her that in 1 month she will likely be at [facility] and then will be released for work either with permanent restrictions or unrestricted depending upon how she feels. She has exhausted conservative care at this point. This patient was seen and examined in the presence of Dr. Cesar Escalante resident in physical medicine and rehabilitation. [facility] 02-23-2023 Note Attestation signed by Jenny Holley MD at 02/23/2023 2:44 PM I personally saw and examined the patient on the same date of service as resident/fellow . I discussed the findings and therapeutic plan with the resident/fellow . I agree with the documentation, except for any edits/updates below. Teaching Physician's Revisions: No revisions Subjective 02/23/23 37-year-old female status post left knee arthroscopy with partial lateral meniscectomy and chondroplasty. Date of surgery 01/01/2023. Patient has been in physical therapy since we last saw her. She states PT is going well and helping her with her motion and strength. She continues to have postoperative pain mainly localized over the portal sites. She also has some intermittent swelling. Otherwise, she is doing well and states that she is better compared to her preoperative status. 12/31/2022 Nabila Jewell is a 37 y.o. female s/p 01/01/2023 Knee Arthroscopy With Partila Lateral Meniscectomy - Left and Chondroplasty - Left. She is doing well overall but does have some pain with extremes of motion and is walking with a limp. Patient History Past Surgical History: Procedure Laterality Date SECTION, CLASSIC X2 CYST REMOVAL OFF OF ADRENAL GLAND DILATION AND CURETTAGE OF UTERUS GALLBLADDER SURGERY KNEE SURGERY Left MENISCECTOMY, CHONDROPLASTY PILONIDAL CYST DRAINAGE REMOVAL ON TAIL BONE TYMPANOSTOMY TUBE PLACEMENT Bilateral Past Medical History: Diagnosis Date Adrenal adenoma Anxiety Carbuncle of back except buttock Chronic pain syndrome Degeneration of intervertebral disc of cervical region Discoid meniscus of left knee Dysmenorrhea Eczema Fatigue Furuncle of abdominal wall Head injury Hypertension Non-cardiac chest pain Obesity Psoriasis Sleep apnea Objective Exam: - Incision clean, dry, and intact. No drainage or erythema - Reasonable post-surgical ROM, 0 to 100 degrees, no significant swelling, and tenderness - Sensation grossly intact distally -Walks with a normal gait and nonantalgic manner - Brisk capillary refill Assessment/Plan Nabila Jewell is a 37 y.o. female s/p Knee Arthroscopy With Partila Lateral Meniscectomy - Left and Chondroplasty - Left (01/01/2023). -Patient has persistent pain and some mild swelling about the left knee most likely related to improper/overuse of the knee at this time. We instructed her on some activity modifications that she can do on her own at home in order to calm down the discomfort -We do not need her to continue formal physical therapy at this time -She will continue HEP indefinitely. She will return to clinic in roughly 6 to 8 weeks time on an as-needed basis if she fails to improve Chinedu Palacios MD Orthopedic Surgery, PGY-4 [facility] Pager: [phone] 02/23/23 2:00 PM This note was created with the assistance of a speech-recognition program. While intending to generate a document that accurately reflects the content of the encounter, no guarantee can be provided that every mistake has been identified and corrected by editing. By using the attestations below, the signing clinician agrees that I have read and verify that the documentation has been personally reviewed by me and ensure that the documentation accurately reflects the encounter. GC: I personally saw this patient on the day of the encounter, performed the mc portion(s) of the service and participated in the management and confirm the resident's documentation. Please note there may be an additional personal documentation from me. [facility] 01-12-2023 Note Attestation signed by Jenny Holley MD at 01/13/2023 1:28 PM I personally saw and examined the patient on the same date of service as resident/fellow . I discussed the findings and therapeutic plan with the resident/fellow . I agree with the documentation, except for any edits/updates below. Teaching Physician's Revisions: No revisions Subjective 01/01/2023 - 01/12/23 Nabila Jewell is a 37 y.o. female s/p 01/01/2023 Knee Arthroscopy With Partila Lateral Meniscectomy - Left and Chondroplasty - Left. She is doing well overall but does have some pain with extremes of motion and is walking with a limp. Patient History Past Surgical History: Procedure Laterality Date SECTION, CLASSIC X2 CYST REMOVAL OFF OF ADRENAL GLAND DILATION AND CURETTAGE OF UTERUS GALLBLADDER SURGERY KNEE SURGERY Left MENISCECTOMY, CHONDROPLASTY PILONIDAL CYST DRAINAGE REMOVAL ON TAIL BONE TYMPANOSTOMY TUBE PLACEMENT Bilateral Past Medical History: Diagnosis Date Adrenal adenoma Anxiety Carbuncle of back except buttock Chronic pain syndrome Degeneration of intervertebral disc of cervical region Discoid meniscus of left knee Dysmenorrhea Eczema Fatigue Furuncle of abdominal wall Head injury Hypertension Non-cardiac chest pain Obesity Psoriasis Sleep apnea Objective Exam: - Incision clean, dry, and intact. No drainage or erythema - Reasonable post-surgical ROM, 5 to 95 degrees, swelling, and tenderness - Sensation grossly intact distally -Walking with a limp. - Brisk capillary refill Assessment/Plan Nabila Jewell is a 37 y.o. female s/p Knee Arthroscopy With Partila Lateral Meniscectomy - Left and Chondroplasty - Left (01/01/2023). -PT for gait training and range of motion - Follow-up in 6 weeks. Lonnie Barriga, PGY4 Orthopedic Surgery Resident By using the attestations below, the signing clinician agrees that I have read and verify that the documentation has been personally reviewed by me and ensure that the documentation accurately reflects the encounter. GC: I personally saw this patient on the day of the encounter, performed the mc portion(s) of the service and participated in the management and confirm the resident's documentation. Please note there may be an additional personal documentation from me. [facility] 01-02-2023 Note I called and spoke t o the patient for a discharge follow up call following her procedure. The patient is doing well at home. She is taking ASA per orders. She denies any issues with her surgical dressing. I confirmed with the patient that she has a follow up appointment with Dr. Holley. [facility] 01-01-2023 Note Patient: Nabila cohn Procedure Summary Date: 01/01/23 Room / Location: [facility] OR [address] [place] [address] [facility] OR Anesthesia Start: 0900 Anesthesia Stop: 953 Procedures: KNEE ARTHROSCOPY WITH PARTILA LATERAL MENISCECTOMY (Left: Knee) CHONDROPLASTY (Left) Diagnosis: Discoid meniscus of left knee (Discoid meniscus of left knee [Q68.6]) Surgeons: Jenny Holley MD Responsible Provider: Han Aguiar MD Anesthesia Type: general ASA Status: 3 Anesthesia Type: general Vitals Value Taken Time BP 113/87 01/01/23 1015 Temp 36.2 ???C (97.2 ???F) 01/01/23 0945 Pulse 63 01/01/23 1015 Resp 13 01/01/23 1015 SpO2 93 % 01/01/23 1015 Anesthesia Post Evaluation Patient location during evaluation: PACU Patient participation: complete - patient participated Level of consciousness: awake and alert Pain score: 1 Pain management: adequate Airway patency: patent Cardiovascular status: hemodynamically stable Respiratory status: nasal cannula and nonlabored ventilation Hydration status: euvolemic Patient is hemodynamically stable and is able to be discharged from PACU per anesthesia protocol. There were no known notable events for this encounter. [facility] 01-01-2023 Note Airway Date/Time: 01/01/2023 9:16 AM Urgency: elective Airway not difficult General Information and Staff Patient location during procedure: OR Anesthesiologist: Han Aguiar MD Resident/INDUSTRIAL RENDERER/CAA: TANO Bonner Performed: other anesthesia staff Learner assisted: maximiliano Gregorio student Indications and Patient Condition Indications for airway management: anesthesia Spontaneous Ventilation: absent Sedation level: deep Preoxygenated: yes Patient position: sniffing Mask difficulty assessment: 1 - vent by mask Final Airway Details Final airway type: endotracheal airway Successful airway: ETT Cuffed: yes Successful intubation technique: video laryngoscopy Blade: Conley Blade size: #3 ETT size (mm): 7.5 Cormack-Lehane Classification: grade I - full view of glottis Placement verified by: chest auscultation and capnometry Cuff volume (mL): 9 Measured from: lips ETT to lips (cm): 23 Number of attempts at approach: 1 Number of other approaches attempted: 0 [facility] 01-01-2023 Note Patient: Nabila cohn Procedure Information Date/Time: 01/01/23 0930 Procedures: KNEE ARTHROSCOPY WITH (Left: Knee) SAUCERIZATION OF DISCOID MENISCUS AND CHONDROPLASTY OF TROCHLEA (Left: Knee) Location: [facility] OR / [facility] OR Surgeons: Jenny Holley MD Echo complete W/O contrast Order: [id number] Narrative ?Left Ventricle: Systolic function is normal with an ejection fraction of 60-65%. ?Mitral Valve: Mitral valve structure is normal. ?Left Atrium: Left atrium is normal in size. ?Aortic Valve: The aortic valve is trileaflet. ?Right Ventricle: Systolic function is normal. ?Tricuspid Valve: Tricuspid valve appears to be normal. ?Pericardium: There is no pericardial effusion. Left Ventricle Left ventricle appears normal in size. Wall thickness is normal. Systolic function is normal with an ejection fraction of 60-65%. No segmental wall motion abnormalities. Normal diastolic function is present. Right Ventricle Right ventricular size appears normal. Systolic function is normal. Left Atrium Left atrium is normal in size. Right Atrium Right atrium is normal in size. IVC/SVC IVC appears normal. There is normal collapse with deep inspiration. Mitral Valve Mitral valve structure is normal. There is no regurgitation or stenosis. Tricuspid Valve Tricuspid valve appears to be normal. There is no regurgitation or stenosis. RVSP estimated at <30 mmHg. Aortic Valve The aortic valve is trileaflet. There is no regurgitation or stenosis. Pulmonic Valve Pulmonic valve structure is grossly normal. There is no regurgitation or stenosis. Ascending Aorta The aortic root normal in size. Pericardium There is no pericardial effusion. Study Details A complete echo was performed using complete 2D. Overall the study quality was good. Wall Scoring Baseline Score Index: 1.00 The left ventricular wall motion is normal. All Measurements Exam End: 07/12/19 09:51 Last Resulted: 07/12/19 12:35 Received From: [employer] Result Received: 03/31/22 20:06 View Encounter ??? Received Information Full Result Image Retrieve This media has not yet been retrieved from an outside organization. To retrieve, click the link below. Report on 07/12/2019 9:51 AM EDT: Echo complete W/O contrast Past Medical History: Diagnosis Date ??? Adrenal adenoma ??? Anxiety ??? Carbuncle of back except buttock ??? Chronic pain syndrome ??? Degeneration of intervertebral disc of cervical region ??? Discoid meniscus of left knee ??? Dysmenorrhea ??? Eczema ??? Fatigue ??? Furuncle of abdominal wall ??? Head injury ??? Hypertension ??? Non-cardiac chest pain ??? Obesity ??? Psoriasis ??? Sleep apnea Relevant Problems Cardio (+) HTN (hypertension) (+) Hypertensive urgency Clinical information reviewed: Tobacco Allergies Meds Problems Med Hx Surg Hx OB Status Fam Hx Soc Hx Past Surgical History: Procedure Laterality Date ??? SECTION, CLASSIC X2 ??? CYST REMOVAL OFF OF ADRENAL GLAND ??? DILATION AND CURETTAGE OF UTERUS ??? GALLBLADDER SURGERY ??? PILONIDAL CYST DRAINAGE REMOVAL ON TAIL BONE ??? TYMPANOSTOMY TUBE PLACEMENT Bilateral Physical Exam Airway Mallampati: II TM distance: >3 FB Neck ROM: full Cardiovascular Dental - normal exam Pulmonary Abdominal (+) obese Other findings: Quit smoking 2019; methadone maintenance; daily alprazolam 0.5 mg. Anesthesia Plan ASA 3 general The patient is not a current smoker. Patient was previously instructed to abstain from smoking on day of procedure. Patient did not smoke on day of procedure. intravenous induction Postoperative administration of opioids is intended. Anesthetic plan and risks discussed with patient. Plan discussed with medical student and CAA. Additional Equipment Requests [facility] 12-09-2022 Note Called to confirm ap pointment with dietitian scheduled for 12/10; pt request to cancel appointment at this time. [facility] 12-01-2022 Note Attestation signed by Pascual Uribe MD at 12/01/2022 5:19 PM I personally saw and examined the patient on the same date of service as resident/fellow . I discussed the findings and therapeutic plan with the resident/fellow . I agree with the documentation, except for any edits/updates below. Teaching Physician's Revisions: Patient seen and examined with Dr. Barlow today. I concur with above documentation. Patient will be held on her current restrictions for the next 3 months and at her next follow-up we will determine whether her restrictions will be permanent or she will able to return to work unrestricted. ASSESSMENT/PLAN: Nabila was seen today for headaches. Diagnoses and all orders for this visit: Concussion without loss of consciousness, initial encounter (Primary) Assessment: Post-concussion syndrome Plan: Patient condition stable and slowly improving on current medication regimen of amitriptyline nightly and nabumetone BID PRN. Provided med refills today. We will continue current work restrictions of 4 hours/day, 20 hours weekly. She is not currently working Follow up in 3 months, at that time we will plan to make a determination of returning to work vs permanent disability Risks, benefits, and alternatives to all new medications were discussed with patient. Continue all other medications as prescribed. All questions answered to patient's satisfaction. The patient was instructed to call if symptoms are worsening or not improving. The patient was counseled regarding impressions, instructions for management and importance of compliance with treatment. Clay Barlow SUBJECTIVE: Nabila Jewlel is a 37 y.o. female who presents to [facility] today for [facility] post-concussion syndrome follow up HPI: Patient following up head injury at work, DOI 04/12/21. Has been dealing with persistent headaches since. She does feel she is slowly improving. Headaches down to every other day. They are across the forehead. Denies vision changes. Does get some nausea and vomiting occasionally. Irritability and fogginess present. Nabumetone improves the headache usually in 30 minutes or so. She is not working with the current restrictions. Review of Systems No new weakness, numbness, tingling. Patient Active Problem List Diagnosis Adrenal nodule (CMS/HCC) Anxiety state Carbuncle of back except buttock Chest wall pain Head injury Contusion of knee Degeneration of intervertebral disc of cervical region Dysmenorrhea Eczema Fatigue Furuncle of abdominal wall HTN (hypertension) Hypertensive urgency Hypokalemia Hypomagnesemia Morbid obesity (CMS/HCC) Sleep apnea Psoriasis Sprain of right knee Discoid meniscus of left knee Chondromalacia, left knee Outpatient Medications Prior to Visit Medication Sig Dispense Refill ALPRAZolam (Xanax) 0.5 mg tablet alprazolam 0.5 mg tablet TAKE ONE TABLET BY MOUTH TWICE A DAY NEEDED FOR ANXIETY ALPRAZolam (Xanax) 1 mg tablet ALPRAZolam (Xanax) 2 mg tablet Take 2 mg by mouth. amitriptyline (Elavil) 25 mg tablet TAKE 1 TABLET EVERY DAY BY ORAL ROUTE AT BEDTIME FOR 30 DAYS. 30 tablet 1 amitriptyline (Elavil) 50 mg tablet Take 50-100 mg by mouth. amoxicillin (Amoxil) 875 mg tablet TAKE ONE TABLET BY MOUTH TWICE A DAY FOR 5 DAYS amoxicillin-pot clavulanate (Augmentin) 875-125 mg tablet Take 1 tablet by mouth in the morning and at bedtime. buPROPion XL (Wellbutrin XL) 300 mg 24 hr tablet Take 300 mg by mouth in the morning. carvedilol (Coreg) 3.125 mg tablet Take 3.125 mg by mouth. ciprofloxacin (Cipro) 500 mg tablet Take 500 mg by mouth in the morning and at bedtime. clobetasol (Temovate) 0.05 % cream APPLY TWICE DAILY TO TRUNK AND EXTREMITIES X3 WEEKS THEN NEEDED. cloNIDine (Catapres) 0.1 mg tablet Take 0.1 mg by mouth. fluocinonide (Lidex) 0.05 % external solution fluocinonide 0.05 % topical solution APPLY TO AFFECTED AREAS ON SCALP DAILY UP TO 3 WEEKS THEN RESUME NEEDED FOR ITCHING. hydrALAZINE (Apresoline) 10 mg tablet Take 50 mg by mouth. hydrALAZINE (Apresoline) 50 mg tablet Take 50 mg by mouth in the morning and 50 mg at noon and 50 mg in the evening. hydrocortisone 2.5 % cream hydrocortisone 2.5 % topical cream APPLY TO STOMACH TWICE A DAY FOR UP TO 3 WEEKS AND THEN NEEDED FOR FLARES ibuprofen 800 mg tablet Take 1 tablet by mouth every 6 (six) hours if needed. ketoconazole (NIZOral) 2 % shampoo ketoconazole 2 % shampoo LATHER TO SCALP 2X PER WEEK, ALLOW TO SIT FOR 3-5 MINUTES THEN RINSE lisinopril 20 mg tablet lisinopril 20 mg tablet TAKE ONE TABLET BY MOUTH ONCE DAILY losartan (Cozaar) 25 mg tablet Take 25 mg by mouth. magnesium oxide (Mag-Ox) 400 mg (241.3 mg magnesium) tablet Take 1 tablet by mouth in (more content not included)... [facility] 09-29-2022 Note Attestation signed by Pascual Uribe MD at 09/29/2022 5:26 PM As the teaching physician, I have personally performed or re-performed the history of present illness, physical exam and medical decision making activities of the encounter and verified the medical student's documentation. I made pertinent changes as necessary to ensure accurate documentation. Patient seen and examined today. I performed all portions of the history, physical examination, and medical decision making and updated any type of documentation. Subjective Patient ID: Nabila Jewell is a 37 y.o. female. Headache Leg Pain Nabila Jewell is a 36-year-old female presenting to clinic today for follow up on headaches and post-concussive syndrome following a work related injury. At her last visit started her on amitriptyline along with continuing nabumetone. She says that with this combination her headaches have lessened in intensity, although they are still occurring at least once daily. She says she completed physical therapy. She has not yet returned to work. Review of Systems Neurological: Positive for headaches. All other systems reviewed and are negative. Objective Physical Exam General: No acute distress, conversant HEENT: Normocephalic nontraumatic, no lid lag, MMM Cardiac: Limbs warm to touch Lungs: Normal rate, no respiratory distress Extremity: No significant edema Psychiatric: Normal mood and affect Neurological: Alert and oriented, no dysarthria and no word finding difficulty, follows all commands, sensation intact to light touch Skin: Warm to touch, no obvious lesions MUSCULOSKELETAL: Strength: No focal motor deficits noted. Special testing: Cranial nerve testing was normal. Assessment/Plan There are no diagnoses linked to this encounter. Plan: - Her symptom presentation is consistent with post-concussive syndrome. - Given symptomatic improvement with the current medication regimen, we will continue her on this combination - Medication refill was given Erika Damon, MS3 [facility] 09-15-2022 Note Orthopedic Surgery Subjective Chief complaint: Chief Complaint Patient presents with Left Knee - Pain 09/15/22 Nabila Jewell is a 37 year old female who presents for follow up evaluation of her left knee. The pain is unchanged and she would like to undergo surgery. 08/22/2022: Conservative measures have not provided mcfp relief, seen today with complaints of left knee pain. PT, medications and CSI have not provided oil heaterman relief. 07/02/22 steroid injection at previous visit was helpful and gave relief for approximately 1 week. She states the pain is since returned. She did not start physical therapy as she lost her paper. Denies numbness and tingling at this time 04/03/22 Nabila Jewell is a 37 y.o. year old female presenting for evaluation of Left knee pain.Patient previously seen us a month ago after sustaining a fall at work in March 2021. Patient has an associated work-related injury to her contralateral right knee that she was treated knee immobilizer and believes that she was having an overuse issue to her left knee. Patient states that over the last several months for left knee pain having gotten worse. She believes it may have been injured during her initial fall. Patient describes her pain to be throughout her entire knee anterior posterior as well as medially. Patient states that her pain does throb and has become limiting in her activities and her ability to walk prolonged distances. Patient states that she has been undergoing physical therapy. She says that they have therapy that helps decrease the swelling in her knee joint however it tends to come back a few days after her therapy sessions. Patient does not take any anti-inflammatories at this time for pain as she takes methadone from an outside provider.Patient does endorse mild instability in her knee and knee giving way. Patient did state that she had a recent fall last month on 03/24/2022 [address] her porch steps. Patient states that she fell on her bottom as well as her left elbow. She endorsed having bruising and ecchymosis of her left elbow but says her pain is improved at this time and bruising has significantly resolved. Of note patient does have Psoriasis and has overlying plaque scars on her knee. She does state that she believes it is well controlled and takes monthly injections that she is compliant with. Patient History Past Surgical History: Procedure Laterality Date SECTION, CLASSIC GALLBLADDER SURGERY TYMPANOSTOMY TUBE PLACEMENT Bilateral Past Medical History: Diagnosis Date Anxiety Hypertension Objective HEENT atraumatic NECk trachea midline Mood and affect appropriate Left knee: -Tender to palpation to medial lateral joint lines -Range of motion 0 to 110 degrees -Tender to palpation to posterior aspect of the knee as well as patellofemoral compression testing -Knee stable to varus and valgus stressing -Negative Kory bilaterally -5 out of 5 strength in hip flexion knee extension, knee flexion -Sensation intact grossly throughout -Of note patient does have scarred psoriatic plaques overlying her knee Imaging personally reviewed: MRI left knee Impression: Demonstrates patient to have chondromalacia involving the inferior aspect of the medial femoral trochlear cartilage with mild thinning of the central weightbearing portion of the condyle. Patient's MCL, LCL, PCL, ACL all appear to be intact. There may be a slight discoid lateral meniscus without any tearing of medial or lateral menisci. No Chiang's cyst noted. There is a small joint effusion noted. Assessment/Plan Nabila Jewell is a 37 y.o. 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 -Patient reports conservative measures are not providing mcfp relief for left knee pain. She would like to undergo surgical repair - Consent for left knee arthroscopy has been obtained -Plan L knee chondroplasty trochlea and partial lateral meniscectomy [facility] 08-21-2022 Note Orthopedic Surgery Subjective Chief complaint: Chief Complaint Patient presents with Left Knee - Pain 08/22/22 Conservative measures have not provided mcfp relief, seen today with complaints of left knee pain. PT, medications and CSI have not provided oil heaterman relief. 07/02/22 steroid injection at previous visit was helpful and gave relief for approximately 1 week. She states the pain is since returned. She did not start physical therapy as she lost her paper. Denies numbness and tingling at this time 04/03/22 Nabila Jewell is a 36 y.o. year old female presenting for evaluation of Left knee pain.Patient previously seen us a month ago after sustaining a fall at work in March 2021. Patient has an associated work-related injury to her contralateral right knee that she was treated knee immobilizer and believes that she was having an overuse issue to her left knee. Patient states that over the last several months for left knee pain having gotten worse. She believes it may have been injured during her initial fall. Patient describes her pain to be throughout her entire knee anterior posterior as well as medially. Patient states that her pain does throb and has become limiting in her activities and her ability to walk prolonged distances. Patient states that she has been undergoing physical therapy. She says that they have therapy that helps decrease the swelling in her knee joint however it tends to come back a few days after her therapy sessions. Patient does not take any anti-inflammatories at this time for pain as she takes methadone from an outside provider.Patient does endorse mild instability in her knee and knee giving way. Patient did state that she had a recent fall last month on 03/24/[address] steps. Patient states that she fell on her bottom as well as her left elbow. She endorsed having bruising and ecchymosis of her left elbow but says her pain is improved at this time and bruising has significantly resolved. Of note patient does have Psoriasis and has overlying plaque scars on her knee. She does state that she believes it is well controlled and takes monthly injections that she is compliant with. Patient History Past Surgical History: Procedure Laterality Date SECTION, CLASSIC GALLBLADDER SURGERY TYMPANOSTOMY TUBE PLACEMENT Bilateral Past Medical History: Diagnosis Date Anxiety Hypertension Objective HEENT atraumatic NECk trachea midline Mood and affect approp Skin intact Coordination intact Lungs no dyspnea. Left knee: -Tender to palpation to medial lateral joint lines -Range of motion 0 to 110 degrees -Tender to palpation to posterior aspect of the knee as well as patellofemoral compression testing -Knee stable to varus and valgus stressing -Negative Kory -5 out of 5 strength in hip flexion knee extension, knee flexion -Sensation intact grossly throughout -Of note patient does have scarred psoriatic plaques overlying her knee Imaging personally reviewed: MRI of patient's left knee was brought in from [facility] on a CD disc that was personally reviewed that demonstrates patient to have chondromalacia involving the inferior aspect of the medial femoral trochlear cartilage with mild thinning of the central weightbearing portion of the condyle. Patient's MCL, LCL, PCL, ACL all appear to be intact. There may be a slight discoid lateral meniscus without any tearing of medial or lateral menisci. No Chiang's cyst noted. There is a small joint effusion noted. Assessment/Plan Nabila Jewell is a 36 y.o. 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 -Patient reports conservative measures are not providing oil heaterman relief in regard to her left knee. Refer to Dr Holley for opinion. [facility] 08-06-2022 Note Adult Nutrition Asse ssment Name: Nabila Jewell Date: 85 Date Of Visit: 08/06/22 Referral Dx: Left Knee Pain, HTN, Obesity Past Medical History: HTN, obesity, anxiety, hypomagnesia, hypokalemia, eczema, psoriasis, adrenal cyst removal, head injury with post concussive syndrome Current Nutrition Related Medications: magnesium oxide, potassium chloride, phenergan, aldactone, meloxicam, lisinopril, methadone, nabumetone Labs: none recent in chart Food Allergies: none Anthropometrics: CBW: 275.8 lbs Height: 61 in BMI: 52.11 (obesity class III) IBW: 47.7 kg Wt Change: Pt endorses wt gain over past few years, since being on workers compensation following work related injury. Per records, wt was 270 lbs on 07/02/21 and 260 lbs on 05/15/22. Gain of 15.8 lbs (6% = mild) in past 3 months. Nutrition Data: Cooks with vegetable oil and uses 80/20 ground meat. Uses white breads and pastas and consumes very little fruit and vegetables. Minimal activity 2/2 knee pain. Was in physical therapy, plans to restart soon. Still completes exercises from previous PT at home and walks around the block 2x/day. Takes BP medication at night (because it makes her tired) and feels like she needs a snack in order to prevent BP from dropping over night. Reports being weaned off all pain medications and has been taking methadone and xanax: in the process of weaning off of both of these as well. Endorses stress 2/2 frustration with worker's compensation case. *24 Hr Diet Recall* B- skips L-Alison's grilled chicken sandwich + chili cheese fries (if eating out) or grilled cheese x2 on white bread with cheese and pizza sauce. D-pizza or chicken chunks (if ordering out). If cooking at home, makes skyline chili + pasta, baked bbq chicken, chicken nuggets, tater tot casserole, hamburger with gravy and mashed potatoes 11 pm: has small portion of leftovers from dinner meal Snacks: none but does endorse significant sugar cravings since starting on methadone a few years ago Drinks: ~40 oz 7-up + 1 glass water Nutrition Needs: Needs based on: IBW Calorie Needs: 9335-4653 kcal/day (25-30 kcal/kg) Protein Needs: 65 g/day (~20% total kcal) Fluid Needs: at least 1500 mL/day PES Statement: Obesity r/t excessive caloric intake and minimal physical activity aeb diet recall, pt report and BMI >40 Education Materials Provided: -Wt Loss Folder -> Losing Weight, Getting Started, The Plate Method, Benefits of Physical Activity, Mindful Eating, Healthy Choices when Dining Out Nutrition Recommendations/Plan: Discussed the importance of realistic goal setting and making lifestyle changes > dieting. Encouraged pt to increase activity level, as tolerated with goal of getting back into physical therapy [facility]. Pt has limited mobility 2/2 knee pain, however, did discuss the possibility of doing low impact exercise to help increase overall activity (chair exercises, nu-step, pool). Reviewed label reading and the importance of portion control. Pt agreeable to track intakes via james that she has downloaded onto phone. Discussed that in order to lose weight, pt needs to be in caloric deficit. Encouraged deficit of ~500 kcal/day (= 1lb/wk). Pt also agreeable to avoid sugary beverages and increase water intake. Encouraged pt to choose whole grains > refined starches and reviewed the importance of fiber intake. Pt also agreeable to include 1 serving of non-starchy vegetables with lunch and dinner. Discussed healthier snack options (yogurt, fruit) and encouraged pt to eat breakfast meal rather than late night meal prior to bed. Pt also reports issues with HTN. She avoids added salt, but based on diet recall, consumes a diet that is rich in Na. Discussed high Na items to avoid and encouraged her to aim for <2000 mg/day Na. Discussed ways to decrease fat/calorie intake by limiting added fats, choosing unsaturated fats, low fat cooking methods and using lean proteins. Pt also agreeable to try to cook more meals at home and look up nutritional information ahead of time if eating out. Pt agreeable to all topics/changes discussed. Expected Adherence: Good. Teach back used to demonstrate understanding. Short Term Goals: -Track intakes via food log -Avoid sugary beverages, increase water -Cook more meals at home -Limit Na to 2000 mg/day -Wt loss 1-2 lb/wk Half-Way Goals: -Wt loss 10% Pt scheduled follow-up appointment with RD for December 10 @ 11 am. Encouraged pt to check with insurance for coverage prior to appointment. Time Spent With Pt: 10:00 - 11:30 am [facility] 07-31-2022 Note Called pt to confirm appointment with RD on 08/06/22. She is interested in attending appointment - fax sent to primary care physician (Dr. Urias) and requested for referral with nutrition related diagnosis. [facility] 07-02-2022 Note Subjective Patient ID: Nabila Jewell is a 36 y.o. female. Headache Leg Pain this patient is a 36-year-old female who sustained a work-related head injury. She continues with postconcussive syndrome. At her last visit we did start her on nabumetone been helping her headaches. They lessen the intensity. She continues with physical therapy here at [facility]. She has not yet been returning to work as her job has not been able to accommodate her restrictions. No new constitutional symptoms. Review of Systems Neurological: Positive for headaches. All other systems reviewed and are negative. Objective Physical Exam General: No acute distress, conversant HEENT: Normocephalic nontraumatic, no lid lag, MMM Cardiac: Limbs warm to touch Lungs: Normal rate, no respiratory distress Extremity: No significant edema Psychiatric: Normal mood and affect Neurological: Alert and oriented, no dysarthria and no word finding difficulty, follows all commands, sensation intact to light touch Skin: Warm to touch, no obvious lesions MUSCULOSKELETAL: Strength: No focal motor deficits noted. Special testing: Cranial nerve testing was normal. Assessment/Plan Diagnoses and all orders for this visit: Injury of head, initial encounter At this point this patient's presentation continues to be consistent with postconcussive syndrome. She will continue with her current therapy and NSAID medication. Refills given today. We will see her in follow-up in 2 months. She will continue on her current work restrictions. \ As the teaching physician, I have personally performed or re-performed the history of present illness, physical exam and medical decision-making activities of the encounter and verified the medical student's documentation. I made pertinent changes as necessary to ensure accurate documentation. Additional Comments: Seen on medical student today [facility] 05-15-2022 Note Attestation signed by Rufino Perdomo MD at 05/15/2022 5:32 PM I personally saw and examined the patient on the same date of service as resident. I discussed the findings and therapeutic plan with the resident. I agree with the documentation, except for any edits/updates below. Teaching Physician's Revisions: None Orthopedic Surgery Subjective Chief complaint: Chief Complaint Patient presents with Left Knee - Follow-up Follow up on left knee pain. 05/15/22 steroid injection at previous visit was helpful and gave relief for approximately 1 week. She states the pain is since returned. She did not start physical therapy as she lost her paper. Denies numbness and tingling at this time 04/03/22 Nabila Jewell is a 36 y.o. year old female presenting for evaluation of Left knee pain.Patient previously seen us a month ago after sustaining a fall at work in March 2021. Patient has an associated work-related injury to her contralateral right knee that she was treated knee immobilizer and believes that she was having an overuse issue to her left knee. Patient states that over the last several months for left knee pain having gotten worse. She believes it may have been injured during her initial fall. Patient describes her pain to be throughout her entire knee anterior posterior as well as medially. Patient states that her pain does throb and has become limiting in her activities and her ability to walk prolonged distances. Patient states that she has been undergoing physical therapy. She says that they have therapy that helps decrease the swelling in her knee joint however it tends to come back a few days after her therapy sessions. Patient does not take any anti-inflammatories at this time for pain as she takes methadone from an outside provider.Patient does endorse mild instability in her knee and knee giving way. Patient did state that she had a recent fall last month on 03/24/2022 going down her porch steps. Patient states that she fell on her bottom as well as her left elbow. She endorsed having bruising and ecchymosis of her left elbow but says her pain is improved at this time and bruising has significantly resolved. Of note patient does have Psoriasis and has overlying plaque scars on her knee. She does state that she believes it is well controlled and takes monthly injections that she is compliant with. Patient History Past Surgical History: Procedure Laterality Date SECTION, CLASSIC GALLBLADDER SURGERY TYMPANOSTOMY TUBE PLACEMENT Bilateral Past Medical History: Diagnosis Date Anxiety Hypertension Objective Left knee: -Tender to palpation to medial lateral joint lines -Range of motion 0 to 110 degrees -Tender to palpation to posterior aspect of the knee as well as patellofemoral compression testing -Knee stable to varus and valgus stressing -Negative Kory -5 out of 5 strength in hip flexion knee extension, knee flexion -Sensation intact grossly throughout -Of note patient does have scarred psoriatic plaques overlying her knee Imaging personally reviewed: MRI of patient's left knee was brought in from [facility] on a CD disc that was personally reviewed that demonstrates patient to have chondromalacia involving the inferior aspect of the medial femoral trochlear cartilage with mild thinning of the central weightbearing portion of the condyle. Patient's MCL, LCL, PCL, ACL all appear to be intact. There may be a slight discoid lateral meniscus without any tearing of medial or lateral menisci. No Chiang's cyst noted. There is a small joint effusion noted. Assessment/Plan Nabila Jewell is a 36 y.o. year old female with Left medial femoral chondromalacia -Physical Therapy - quad strengthen -Mobic -Patient return to clinic in 6 weeks for repeat clinical evaluation Sixto Durham MD PGY-4 Orthopedic Surgery [facility] By using the attestations below, the signing clinician agrees that I have read and verify that the documentation has been personally reviewed by me and ensure that the documentation accurately reflects the encounter. Office Visit Attestation GC: I personally saw this patient on the day of the encounter, performed the mc portion(s) of the service and participated in the management and confirm the resident's documentation. Please note there may be an additional personal documentation from me. [facility] 04-30-2022 Note ASSESSMENT/PLAN: Nbaila was seen today for headaches. Diagnoses and all orders for this visit: Injury of head, subsequent encounter (Primary) - nabumetone (Relafen) 500 mg tablet; Take 1 tablet (500 mg) by mouth if needed in the morning and at bedtime for mild pain (1-3 pain score) or moderate pain (4-7 pain score). 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 Completed Neuropsychologic Assessment for cognitive deficits, results discussed in detail with patient. She continues to complain of headaches, so we will begin a new PRN mediction for these concerns. Plan: - Begin Nabumetome 500 mg BID PRN. Counseled to not take on empty stomach. - Counseled in detail regarding Neuropsychologic evaluation. Neuropsychological evaluation showed her to be in the normal range. No sign of residual deficit from her head trauma. - Return to clinic in 2 months Risks, benefits, and alternatives to all new medications were discussed with patient. Continue all other medications as prescribed. All questions answered to patient's satisfaction. The patient was instructed to call if symptoms are worsening or not improving. The patient was counseled regarding impressions, instructions for management and importance of compliance with treatment. Sky Toscano MD Seen and examined with the resident . I concur with the above documentation. SUBJECTIVE: Nabila Jewell is a 36 y.o. female who presents to [facility] today for Workers Compensation Follow up Visit HPI: This is a with concussion sustained in 04/12/2022 now with persistent posttraumatic headaches and cognitive deficits related to the TBI. Completed Neuropsychologic Assessment for cognitive deficits, results discussed in detail with patient. She feels that her main concern continues to be headaches, which affect her quality of life. She has been sleeping better on Elavil, uses CPAP consistently and is seeing a sleep specialist. Review of Systems Constitutional: Negative. HENT: Negative. Eyes: Negative. Respiratory: Negative. Cardiovascular: Negative. Gastrointestinal: Negative. Endocrine: Negative. Genitourinary: Negative. Musculoskeletal: Negative. Skin: Negative. Allergic/Immunologic: Negative. Neurological: Positive for headaches. Hematological: Negative. Psychiatric/Behavioral: Negative. Patient Active Problem List Diagnosis Adrenal nodule (CMS/HCC) Anxiety state Carbuncle of back except buttock Chest wall pain Head injury Contusion of knee Degeneration of intervertebral disc of cervical region Dysmenorrhea Eczema Fatigue Furuncle of abdominal wall HTN (hypertension) Hypertensive urgency Hypokalemia Hypomagnesemia Morbid obesity (CMS/HCC) Sleep apnea Psoriasis Sprain of right knee Outpatient Medications Prior to Visit Medication Sig Dispense Refill ALPRAZolam (Xanax) 0.5 mg tablet alprazolam 0.5 mg tablet TAKE ONE TABLET BY MOUTH TWICE A DAY NEEDED FOR ANXIETY amitriptyline (Elavil) 25 mg tablet amitriptyline 25 mg tablet TAKE 1 TABLET EVERY DAY BY ORAL ROUTE AT BEDTIME FOR 30 DAYS. fluocinonide (Lidex) 0.05 % external solution fluocinonide 0.05 % topical solution APPLY TO AFFECTED AREAS ON SCALP DAILY UP TO 3 WEEKS THEN RESUME NEEDED FOR ITCHING. hydrocortisone 2.5 % cream hydrocortisone 2.5 % topical cream APPLY TO STOMACH TWICE A DAY FOR UP TO 3 WEEKS AND THEN NEEDED FOR FLARES ketoconazole (NIZOral) 2 % shampoo ketoconazole 2 % shampoo LATHER TO SCALP 2X PER WEEK, ALLOW TO SIT FOR 3-5 MINUTES THEN RINSE lisinopril 20 mg tablet lisinopril 20 mg tablet TAKE ONE TABLET BY MOUTH ONCE DAILY magnesium oxide (Mag-Ox) 400 mg (241.3 mg magnesium) tablet Take 1 tablet by mouth in the morning and 1 tablet in the evening. magnesium oxide (Mag-Ox) 400 mg (241.3 mg magnesium) tablet magnesium oxide 400 mg (241.3 mg magnesium) tablet TAKE ONE TABLET BY MOUTH TWICE A DAY FOR 30 DAYS magnesium oxide 420 mg tablet magnesium oxide 420 mg tablet methadone (Dolophine) 5 mg/5 mL solution Take 38 mg by mouth. potassium chloride CR (Klor-Con M20) 20 mEq ER tablet potassium chloride ER 20 mEq tablet,extended release(part/cryst) TAKE 1 TABLET BY MOUTH ONCE A DAY No facility-administered medications prior to visit. Allergies Allergen Reactions Erythromycin Anaphylaxis Erythromycin Lactobionate OBJECTIVE: Vitals: 04/30/22 1526 BP: 127/87 BP Location: Right arm Patient Position: Sitting BP Cuff Size: Adult Pulse: 66 Weight: 122 kg (270 lb) Height: 1.549 m (5' 1 ) Body mass index is 51.02 kg/m???. Physical Exam Gen: NAD, sitting comfortably in chair. HEENT: EOMI CVS: extremities well perfused, no peripheral cyanosis in exposed areas Lung: normal effort of breathing, no accessory muscle usage MSK: RUE strength 5/5, LUE strength 5/5, R (more content not included)... [facility] 04-30-2022 Note I saw and evaluated the patient, participating in the mc portions of the service. I reviewed the resident???s note. I agree with the resident???s findings and plan. Pascual Uribe MD [facility] 04-17-2022 Note Attestation signed by Marisa Carter, PhD at 04/17/2022 7:11 PM I supervised all aspects of this evaluation. [facility] OUTPATIENT REHABILITATION SERVICES - NEUROPSYCHOLOGY [address] [place] [address] Ms. Nabila Jewell was seen via [employer] and then Telephone to discuss the neuropsychological evaluation. We discussed the results, their implications, applicable diagnoses, and recommendations. All questions were answered. At this time, she is discharged from the Neuropsychology service. A copy of these results will be available to her via [facility] or through contacting the Dept. of Health Information Management ([employer]) at [phone]. Contact the Neuropsychology Clinic at [phone] with questions. Linda Scott, PhD Clinical Psychology Neuropsychology [facility] 04-17-2022 Note Attestation signed by Marisa Carter PhD at 04/22/2022 1:40 PM I supervised all aspects of this service. REVIEWED BY: Marisa Carter, PhD, [facility] Board Certified Clinical Neuropsychologist [facility] OUTPATIENT REHABILITATION SERVICES - NEUROPSYCHOLOGY [address] [place] [address] NEUROPSYCHOLOGICAL EVALUATION DATES OF SERVICE: 04/01/2022 - 04/17/2022 DIAGNOSIS: S09.90xa Unspecified Injury of the Head DATE OF ONSET: 04/12/2021 DATE OF : 1985 AGE: 36 Years REASON FOR REFERRAL: This is the initial neuropsychological evaluation of Ms. Nabila Jewell, a 36-year-old, right-handed, White woman who was referred for this evaluation by Salas Lew MD (PM&R) to determine present neurocognitive functioning in the context of a work-related injury due to a fall. She is referred for evaluation of cognition following an unspecified injury of the head. HISTORY OF PRESENTING PROBLEM: The following information was gathered through a clinical interview with Ms. Jewell. She presented to the evaluation on time and unaccompanied, and she was believed to be an accurate historian. Ms. 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 She recalls multiple details of events prior to arriving at work and for the first few hours of her shift. She reports that her next memory is of lying on the floor near the door to the kitchen feeling leg and head pain. She reports that she was working alone in the kitchen at the time of the fall, but that a quality intern came in to assist her and a drywall application supervisor was also called, who in turn called EMS. Ms. Jewell reports she was transported to [facility] in [place], [place], and adds a few memories of her time there including being in the hallway waiting for a room and that her mother came to see her. She states she is not certain what medical evaluation occurred at that time including whether imaging of the head was completed. She reports that since that fall, she has been experiencing memory and concentration problems, headaches, and significant bodily pain. Review of medical records includes a 02/10/2022 office visit with Pascual Uribe MD (PM&R) where Ms. Jewell was seen as a new patient for a [place] of Worker's Compensation claim related to concussion on 04/12/2021. The note reports that Ms. Jewell reported ongoing headaches since the injury, which initially occurred every day but have improved to every other day for the past six months. The note also indicates the headaches last 1-3 hours and are accompanied by dizziness and nausea without other sensory changes. Dr. Uribe's note also indicates that Ms. Jewell reported decreased concentration and agitation, including new-onset episodes of yelling at family members, and no report of confusion or memory problems. This 02/10/22 note also includes exam findings of normal orientation and following of commands, normal mood, recall of 2/3 stimuli after 5-minute delay, 5/5 strength and normal sensation in all extremities, normal cranial nerve function except horizontal nystagmus, and abnormal gait findings including positive Romberg/double leg stance, abnormal single leg stance, and abnormal heel-to-toe walking. Record review also includes a 02/03/22 visit note from [facility] with Chas Romero DO (Neuromuscular Specialist), which indicated intact neurologic exam except mild giveaway weakness in her right leg and normal EMG findings. CURRENT MEDICATIONS: Ms. Jewell reports current medications including Xanax, amitriptyline, lisinopril, magnesium, potassium, and methadone to assist with opioid discontinuation. PAST MEDICAL HISTORY: Ms. Jewell reports history of hypertension and psoriasis predating the 2020 injury. Review of medical records from [facility] on 11/12/21 indicate additional history of adrenal nodule, cervical train, chest pain, fatigue, gastroenteritis, lumbar disc disease, navicular fracture, and obstructive sleep apnea. PAST SURGICAL HISTORY: Ms. Jewell reports history of adrenal cyst removal, ear tubes, cholecystectomy, and cesarian section x2. PSYCHIATRIC TREATMENT: Ms. Jewell reports history of treatment for grief and anxiety. She reports that she does not currently follow with a psychiatrist but previously saw Dr. Carole Caba at [facility]. She reports she currently follows with Wendy Rubio CNP at [facility]. She reports no history of psychological or neuropsychological evaluation, and no history of psychiatric hospitalization. SUBSTANCE USE: Ms. Jewell reports no current use of alcohol and no history of significant alcohol use. She reports no illicit drug use (more content not included)... [facility] 04-03-2022 Note Attestation signed by Rufino Perdomo MD at 04/03/2022 4:54 PM I personally saw and examined the patient on the same date of service as resident. I discussed the findings and therapeutic plan with the resident. I agree with the documentation, except for any edits/updates below. Teaching Physician's Revisions: None I was present during the entire procedure. I agree with the resident documentation, except for any edits/updates below. Orthopedic Surgery Subjective Chief complaint: Chief Complaint Patient presents with Left Knee - Pain, Edema, Follow-up 04/03/22 Nabila Jewell is a 36 y.o. year old female presenting for evaluation of Left knee pain.Patient previously seen us a month ago after sustaining a fall at work in March 2021. Patient has an associated work-related injury to her contralateral right knee that she was treated knee immobilizer and believes that she was having an overuse issue to her left knee. Patient states that over the last several months for left knee pain having gotten worse. She believes it may have been injured during her initial fall. Patient describes her pain to be throughout her entire knee anterior posterior as well as medially. Patient states that her pain does throb and has become limiting in her activities and her ability to walk prolonged distances. Patient states that she has been undergoing physical therapy. She says that they have therapy that helps decrease the swelling in her knee joint however it tends to come back a few days after her therapy sessions. Patient does not take any anti-inflammatories at this time for pain as she takes methadone from an outside provider.Patient does endorse mild instability in her knee and knee giving way. Patient did state that she had a recent fall last month on 03/24/2022 [address] her porch steps. Patient states that she fell on her bottom as well as her left elbow. She endorsed having bruising and ecchymosis of her left elbow but says her pain is improved at this time and bruising has significantly resolved. Of note patient does have Psoriasis and has overlying plaque scars on her knee. She does state that she believes it is well controlled and takes monthly injections that she is compliant with. Patient History Past Surgical History: Procedure Laterality Date SECTION, CLASSIC GALLBLADDER SURGERY TYMPANOSTOMY TUBE PLACEMENT Bilateral Past Medical History: Diagnosis Date Anxiety Hypertension Objective Left knee: -Tender to palpation to medial lateral joint lines -Range of motion 0 to 110 degrees -Tender to palpation to posterior aspect of the knee as well as patellofemoral compression testing -Knee stable to varus and valgus stressing, positive Sabine's which elicits pain -Negative Kory -5 out of 5 strength in hip flexion knee extension, knee flexion -Sensation intact grossly throughout -Of note patient does have scarred psoriatic plaques overlying her knee Imaging personally reviewed: MRI of patient's left knee was brought in from [facility] on a CD disc that was personally reviewed that demonstrates patient to have chondromalacia involving the inferior aspect of the medial femoral trochlear cartilage with mild thinning of the central weightbearing portion of the condyle. Patient's MCL, LCL, PCL, ACL all appear to be intact. There may be a slight discoid lateral meniscus without any tearing of medial or lateral menisci.No Chiang's cyst noted. There is a small joint effusion noted. Procedure Note Consent was obtained from the patient prior to beginning the procedure. The skin was prepped using betadine, and a 22 gauge needle was then used to inject the left knee with the medications listed below. The needle was removed and a clean bandage was applied. Patient tolerated the procedure well and there were no complications. Administrations This Visit lidocaine (Xylocaine) 10 mg/mL (1 %) injection 50 mg Admin Date 04/03/2022 Action Given Dose 50 mg Route injection Administered By Oanh Goins RN triamcinolone acetonide (Kenalog) injection 20 mg Admin Date 04/03/2022 Action Given Dose 20 mg Route intra-articular Administered By Oanh Goins RN Assessment/Plan Nabila Jewell is a 36 y.o. year old female with Left medial femoral chondromalacia - Discussed continued conservative treatment options at this time -Corticosteroid injection performed to patient's left knee today in clinic -Patient to continue physical therapy -Recommend patient take anti-inflammatories -Patient return to clinic in 6 weeks for repeat clinical evaluation Left knee pain, unspecified chronicity [M25.562] Return to Clinic 6 weeks Chinedu Lawson MD Orthopedic Surgery, PGY-2 04/03/22 10:18 AM (more content not included)... [facility] 04-01-2022 Note [id number] Rebecca Jewell 1985 F Date Provider Department Center 04/01/2022 MARISA SIMON [facility] REH[facility] PSY Medical [facility] No family history on file Reason for Visit and Comments: Concussion [[id number]] [facility] 04-01-2022 Note Attestation signed by Marisa Carter, PhD at 04/01/2022 1:03 PM I participated in and supervised all aspects of this service. REVIEWED BY: Marisa Carter, PhD, ABPP Board Certified Clinical Neuropsychologist [facility] OUTPATIENT [facility] - NEUROPSYCHOLOGY [address] [facility] [address] Ms. Nabila Jewell was seen for a neuropsychological evaluation on 04/01/2022. A report describing the results of this evaluation will be posted after the follow-up appointment is completed. Linda Scott, PhD Clinical Psychologist Neuropsychology Fellow [facility] 04-01-2022 Note Ms. Nabila Jewell has a follow-up appointment on 04/17/2022 with Linda Scott, PhD & Marisa Carter, PhD ABPP in Neuropsychology, to discuss the results of the evaluation on 04/01/2022. This appointment will be conducted via [employer]. [facility] 02-03-2022 Note HNO ID: [id number] Author: Chas Romero, DO Service: ? Author Type: Physician Type: Progress Notes Filed: 02/03/2022 11:27 AM Note Text: Neuromuscular Clinic Follow up Visit SERVICE DATE: 02/03/2022 PCP: Smiley Urias MD [address] [place] [address] Reason for Evaluation: Consultation requested by Self for an opinion regarding right leg weakness Family/Friend accompanying the patient today: none HPI: This is Ms. Nabila Jewell, a 36 year old female who presents to the [facility] with the chief complaint above. 02/03/2022: She notes that she is having right leg weakness and pain still. She had an MRI of her left leg, she started having left leg pain. She is still following with orthopedics. She has not fallen at all, the leg has given out on her. She is still having to use cane, she was not using this in the house. Initial history: She had an injury at work (March 2021)-she fell and hit her head on a prep table and fell onto her knee. She had difficulty moving to get up after this. She went to [facility] in [place]. She was evaluated and did testing and said there was a contusion and swelling and she was put in knee immobilizer and was in this for a few months. She has noticed weakness in that leg, it gave out once on her and she fell with this. When she walks, she feels like the leg is going to give out on her and she limps with this. This has been getting stronger but has been taking more time. She stopped physical therapy now at this point. She occasionally gets some numbness around the knee and then this was from knee down to the toe. She does have back pain, she had low back pain and was on opiates for some time and now is on methadone. She does think it has gotten worse, sometimes radicular pain. She is still having a lot of pain in the knee, this is worse when she is moving it around-when she gets up and walks or stands. She still wears brace on knee most of the time. She is using a cane, she is worried she will fall. She denies prior surgery on the back. Per patient/chart review there is a past medical history of: HTN Lumbar disease EMG 01/23/2022: Extensive electrodiagnostic examination of the right lower extremity reveals no significant abnormalities. In particular, there is neither evidence of a right lumbosacral motor radiculopathy, nor a large fiber sensorimotor polyneuropathy affecting the lower extremity. OUTPATIENT MEDICATIONS Current Outpatient Medications Medication Sig potassium chloride in water 20 mEq/100 mL IVPB Inject 20 mEq intravenously one time only. ALPRAZolam (XANAX) 0.5 mg tablet TAKE 1 TABLET BY ORAL ROUTE 2 TIMES PER DAY NEEDED FOR ANXIETY lisinopril (ZESTRIL, PRINIVIL) 20 mg tablet Take 20 mg by mouth once daily. magnesium oxide (MAG-OX) 400 mg (241.3 mg magnesium) tablet Take 1 tablet by mouth twice daily. methadone HCl (METHADONE ORAL) Take 52 mg by mouth once daily. No current facility-administered medications for this visit. Methadone MEDICAL HISTORY PAST MEDICAL HISTORY Diagnosis Date Adrenal nodule (HCC) Cervical strain Chest pain Concussion Fatigue Gastroenteritis HTN (hypertension) Lumbar disc disease Navicular fracture MONIQUE (obstructive sleep apnea) SURGICAL HISTORY PAST SURGICAL HISTORY Procedure Laterality Date CHOLECYSTECTOMY PAST SURGICAL HISTORY OF fatty tumor removal SOCIAL HISTORY Social History Tobacco Use Smoking status: Former Packs/day: 0.50 Years: 10.00 Pack years: 5.00 Types: Cigarettes Quit date: 08/15/2019 Years since quittin.4 Smokeless tobacco: Never Substance Use Topics Alcohol use: No Drug use: No FAMILY HISTORY FAMILY HISTORY Problem Relation Age of Onset Hypertension Mother Diabetes Father Hypertension Father Heart Father 48 cabgx6 ALLERGIES ALLERGIES No Known Allergies PHYSICAL EXAM: BP 117/84 (BP Site: Left Arm, BP Position: Sitting, BP Cuff Size: Regular Adult) Pulse 66 Ht 154.9 cm (5' 1 ) Wt 122.7 kg (270 lb 8 oz) LMP 05/07/2015 SpO2 98% BMI 51.11 kg/m? General: General appearance: Awake and alert. No distress. Cooperative with exam. Skin: No rash or jaundice. HEENT: Atraumatic. Anicteric. Extremities: No edema. No obvious deformity. Musculoskeletal: No obvious joint swelling. Psych: Affect appropriate. Neurological: Mental Status: Alert. Speech fluent. Cranial Nerves: CNII: No RAPD. Visual ya intact. CNIII, IV, : PERRL. No nystagmus. EOMI. CN V: Facial sensation intact bilaterally to fine touch. CN VII: Facial muscles symmetric and strong. No ptosis CN VIII: Hears finger rub well bilaterally. CN IX: No hypophonia. CN X: Palate elevates symmetrically. CN XI: Full strength shoulder shrug bilaterally. CN XII: Tongue protrusion full and midline. No atrophy or fasciculations. No significant dysarthria M (more content not included)... [facility] 02-03-2022 History of Present illness Narrative Neuromuscular Clinic Follow up Visit SERVICE DATE: 02/03/2022 PCP: Smiley Urias MD [address] [place] [address] Reason for Evaluation: Consultation requested by Self for an opinion regarding right leg weakness Family/Friend accompanying the patient today: none HPI: This is Ms. Nabila Jewell, a 36 year old female who presents to the [facility] with the chief complaint above. 02/03/2022: She notes that she is having right leg weakness and pain still. She had an MRI of her left leg, she started having left leg pain. She is still following with orthopedics. She has not fallen at all, the leg has given out on her. She is still having to use cane, she was not using this in the house. Initial history: She had an injury at work (March 2021)-she fell and hit her head on a prep table and fell onto her knee. She had difficulty moving to get up after this. She went to [facility] in [place]. She was evaluated and did testing and said there was a contusion and swelling and she was put in knee immobilizer and was in this for a few months. She has noticed weakness in that leg, it gave out once on her and she fell with this. When she walks, she feels like the leg is going to give out on her and she limps with this. This has been getting stronger but has been taking more time. She stopped physical therapy now at this point. She occasionally gets some numbness around the knee and then this was from knee down to the toe. She does have back pain, she had low back pain and was on opiates for some time and now is on methadone. She does think it has gotten worse, sometimes radicular pain. She is still having a lot of pain in the knee, this is worse when she is moving it around-when she gets up and walks or stands. She still wears brace on knee most of the time. She is using a cane, she is worried she will fall. She denies prior surgery on the back. Per patient/chart review there is a past medical history of: HTN Lumbar disease EMG 01/23/2022: Extensive electrodiagnostic examination of the right lower extremity reveals no significant abnormalities. In particular, there is neither evidence of a right lumbosacral motor radiculopathy, nor a large fiber sensorimotor polyneuropathy affecting the lower extremity. OUTPATIENT MEDICATIONS Current Outpatient Medications Medication Sig potassium chloride in water 20 mEq/100 mL IVPB Inject 20 mEq intravenously one time only. ALPRAZolam (XANAX) 0.5 mg tablet TAKE 1 TABLET BY ORAL ROUTE 2 TIMES PER DAY NEEDED FOR ANXIETY lisinopril (ZESTRIL, PRINIVIL) 20 mg tablet Take 20 mg by mouth once daily. magnesium oxide (MAG-OX) 400 mg (241.3 mg magnesium) tablet Take 1 tablet by mouth twice daily. methadone HCl (METHADONE ORAL) Take 52 mg by mouth once daily. No current facility-administered medications for this visit. Methadone MEDICAL HISTORY PAST MEDICAL HISTORY Diagnosis Date Adrenal nodule (HCC) Cervical strain Chest pain Concussion Fatigue Gastroenteritis HTN (hypertension) Lumbar disc disease Navicular fracture MONIQUE (obstructive sleep apnea) SURGICAL HISTORY PAST SURGICAL HISTORY Procedure Laterality Date CHOLECYSTECTOMY PAST SURGICAL HISTORY OF fatty tumor removal SOCIAL HISTORY Social History Tobacco Use Smoking status: Former Packs/day: 0.50 Years: 10.00 Pack years: 5.00 Types: Cigarettes Quit date: 08/15/2019 Years since quittin.4 Smokeless tobacco: Never Substance Use Topics Alcohol use: No Drug use: No FAMILY HISTORY FAMILY HISTORY Problem Relation Age of Onset Hypertension Mother Diabetes Father Hypertension Father Heart Father 48 cabgx6 ALLERGIES ALLERGIES No Known Allergies PHYSICAL EXAM: BP 117/84 (BP Site: Left Arm, BP Position: Sitting, BP Cuff Size: Regular Adult) Pulse 66 Ht 154.9 cm (5' 1 ) Wt 122.7 kg (270 lb 8 oz) LMP 05/07/2015 SpO2 98% BMI 51.11 kg/m General: General appearance: Awake and alert. No distress. Cooperative with exam. Skin: No rash or jaundice. HEENT: Atraumatic. Anicteric. Extremities: No edema. No obvious deformity. Musculoskeletal: No obvious joint swelling. Psych: Affect appropriate. Neurological: Mental Status: Alert. Speech fluent. Cranial Nerves: CNII: No RAPD. Visual ya intact. CNIII, IV, : PERRL. No nystagmus. EOMI. CN V: Facial sensation intact bilaterally to fine touch. CN VII: Facial muscles symmetric and strong. No ptosis CN VIII: Hears finger rub well bilaterally. CN IX: No hypophonia. CN X: Palate elevates symmetrically. CN XI: Full strength shoulder shrug bilaterally. CN XII: Tongue protrusion full and midline. No atrophy or fasciculations. No significant dysarthria Motor: Tone is normal. Fasciculations none in extremities. Atrophy none. Individual muscle group testing (MRC grade out of 5): Movement Neck flexion 5 Neck extension 5 Right Left Shoulder abduction 5 5 Arm flexion 5 5 Elbow flexion 5 5 Elbow extension 5 5 Wrist extension 5 5 Wrist flexion 5 5 Finger abduction - FDI 5 5 Finger abduction - ADM 5 5 Finger extension 5 5 Finger dist flex - 2/3 5 5 Finger dist flex - 4/5 5 5 Thumb flexion (FPL) 5 5 Thumb abduction (APB) 5 5 Hip flexion 5- 5 Hip extension 5 5 Hip adduction NT 5 Hip abduction 4+ (giveaway) 5 Knee extension 4+ (giveaway)5 5 Knee flexion 4 (give away) 5 Dorsiflexion 4 w/giveaway 5 Plantarflexion 5 5 Reflexes: Right Left Bicep 2+/4 2+/4 Tricep 2+/4 2+/4 BrRad 2+/4 2+/4 Knee 2+/4 2+/4 Ankle 2+/4 2+/4 Pathological Reflexes: Babinski: flexor response bilaterally Frontal Release Signs: Deferred Sensation: Pinprick: intact lower Vibration: 8 in feet Gait: Antalgic gait, difficulty with tandem walk. Able to walk on toes and heels. ASSESSMENT: This is Nabila Jewell, a 36 year old female with: 1. Right knee injury w/ reported right leg weakness Patient presented after knee injury in March with right leg weakness after this w/ slow improvement with physical therapy w/ intermittent numbness around knee that radiates down her foot. Her exam today shows intact neurological exam except for mild weakness in right lower extremity with decreased effort and some give-away weakness. EMG testing showed no evidence of nerve injury in the right leg. We discussed that there is no clear neurological reason as to why she should have weakness- this should improve with physical therapy. No UMN signs to suggest any spinal cord localization. Patient now has left knee pain-recommend to continue to follow with orthopedics, this pain could be compensation for the right leg pain but this is outside of my expertise. -RTC as needed -The impression above as well as the plan as outlined below were extensively discussed with the patient () who voiced understanding. All questions were answered to their satisfaction. -Labs/Studies: No orders of the defined types were placed in this encounter. This note was partially created using voice recognition software and is inherently subject to errors including those of syntax and sound-alike substitutions which may escape proofreading. In such instances, original meaning may be extrapolated by contextual derivation. Chas Romero DO Staff, Neuromuscular Specialist I spent a total of 25 minutes on the date of the service which included preparing to see the patient, [id number] patient care, completing clinical documentation, obtaining and/or reviewing separately obtained history, performing a medically appropriate examination, and counseling and educating the patient/family/caregiver. documented in this encounter [facility] 01-30-2022 Miscellaneous Notes I called patient and communicated results of EMG testing, all questions answered. Advised her that she does not need to follow up with me. Chas Romero DO documented in this encounter [facility] 01-23-2022 Note HNO ID: [id number] Author: Sofi Hernandez MD Service: ? Author Type: Physician Type: Progress Notes Filed: 01/23/2022 2:06 PM Note Text: UNIVERSAL PROTOCOL / SAFETY CHECKLIST Procedure to be Performed: EMG Sign In: A Moment of CARE was completed. Personnel directly involved with the procedure wore the appropriate PPE (Personal Protective Equipment). Patient/Surrogate Stated/Verified: PATIENT VERIFIED(optional for EMERGENT procedures): Patient name, Date of , Relevant allergies and The intended procedure Time Out Communication: Intended patient and procedure match the source documents. Correct side/site marked and visible. Sign Out: SIGN OUT (optional for EMERGENT procedures): Post-procedure follow-up management communicated and Plan of Care Visit completed when applicable. [facility] EMG Tech Sofi Hernandez MD [facility] 01-23-2022 History of Present illness Narrative UNIVERSAL PROTOCOL / SAFETY CHECKLIST Procedure to be Performed: EMG Sign In: A Moment of CARE was completed. Personnel directly involved with the procedure wore the appropriate PPE (Personal Protective Equipment). Patient/Surrogate Stated/Verified: PATIENT VERIFIED(optional for EMERGENT procedures): Patient name, Date of , Relevant allergies and The intended procedure Time Out Communication: Intended patient and procedure match the source documents. Correct side/site marked and visible. Sign Out: SIGN OUT (optional for EMERGENT procedures): Post-procedure follow-up management communicated and Plan of Care Visit completed when applicable. MARLIN Spangler MD documented in this encounter [facility] 01-14-2022 Note PROCEDURE: XR KNEE L T 4V or > HISTORY: Pain of left knee joint COMPARISON: None. FINDINGS: BONES:No fracture, acute abnormality, or significant arthropathy. SOFT TISSUES:No visible soft tissue swelling. EFFUSION:None visible. OTHER: Skin surface marker localizing the patient's area of tenderness is posterior to the knee within the popliteal fossa. IMPRESSION: 1. No acute bone abnormality. Minimal degenerative changes. 2. No appreciable soft tissue abnormality. Consider MRI of the knee if symptoms persist. Electronically authenticated by: PASCUAL GAMBLE Date: 2022-01-14 12:01 [facility] 01-01-2022 Evaluation note Encounter Date Diagnosis Assessment Notes Dec, Sprain of unspecified site of right knee, initial encounter (ICD-10 - S83.91XA) Dec, Contusion of right knee, initial encounter (ICD-10 - S80.01XA) Nabila Jewell returns with right knee contusion. MRI was reviewed and negative. She has failed conservative treatment with no improvement. She is still undergoing physical therapy. At this juncture we have discussed the findings and diagnosis as well as personally reviewed appropriate imaging and performed interpretation of related testing and examination with the patient in office today. Nabila does not seem to be improving at a normal rate for the injury that has occurred. She does have history of chronic pain which could be leading the slow recovery. Structurally both knees sound and I will continue rehabbing this until she is ready for full return. From an orthopedic standpoint I believe she has reached maximal medical improvement. I do not find any orthopedic reason that she should continue to have any issues. She has weakness in the lower extremity which is not of an orthopedic etiology but I have identified. She has been worked up further by neurology and I will defer all other treatment to neurology. I will plan to see her back in 3 months if needed Continue restrictions- off work. [employer] Other 06-10-2022 Miscellaneous Notes* Telephone Encounter - Sky Rapp - 12/06/2021 11:31 AM EDT Relationship to patient: Self Reason for call (non-seizure related) Patient called asking about status of prior authorization [facility] order Patient of Dr. Romero [facility]* Encounter Date Diagnosis Assessment Notes Treatment Notes Treatment Clinical Notes October, Sprain of unspecified site of right knee, initial encounter (ICD-10 - S83.91XA) October, Contusion of right knee, initial encounter (ICD-10 - S80.01XA) Nabila Jewell returns with right knee contusion. MRI was reviewed and negative. She has failed conservative treatment with no improvement. She has failed physical therapy with no improvement. At this juncture we have discussed the findings and diagnosis as well as personally reviewed appropriate imaging and performed interpretation of related testing and examination with the patient in office today. Nabila does not seem to be improving at a normal rate for the injury that has occurred. She does have history of chronic pain which could be leading the slow recovery. Structurally both knees sound and I will continue rehabbing this until she is ready for full return. We did get approval for a cortisone injection into the knee and under sterile technique the patient's right knee has been injected with 4 cc of Marcaine and 1 cc of Kenalog via the inferolateral portal, she tolerated this well. Hopefully this will give her some improvement. Continue conservative treatments. Follow-up in 8 weeks after plan from neurology is established. She has no restrictions from an orthopedic standpoint and the only reason she is unable to work is her subjective knee pain. Continue restrictions-of f work. Patient was prepped and cortisone injected into the right knee joint under sterile conditions, patient tolerated well with no adverse reactions. [employer] Other 05-17-2022 NoteHNO ID: [id number] Author: Chas Romero, DO Service: ? Author Type: Physician Type: Progress Notes Filed: 11/12/2021 2:58 PM Note Text: Neuromuscular Clinic New Patient Visit SERVICE DATE: 11/12/2021 PCP: Smiley Urias MD [facility] [id number] Reason for Evaluation: Consultation requested by Self for an opinion regarding right leg weakness Family/Friend accompanying the patient today: none HPI: This is Ms. Nabila Jewell, a 36 year old female who presents to the [facility] with the chief complaint above. She had an injury at work (March 2021)-she fell and hit her head on a prep table and fell onto her knee. She had difficulty moving to get up after this. She went to [facility] in [place]. She was evaluated and did testing and said there was a contusion and swelling and she was put in knee immobilizer and was in this for a few months. She has noticed weakness in that leg, it gave out once on her and she fell with this. When she walks, she feels like the leg is going to give out on her and she limps with this. This has been getting stronger but has been taking more time. She stopped physical therapy now at this point. She occasionally gets some numbness around the knee and then this was from knee down to the toe. She does have back pain, she had low back pain and was on opiates for some time and now is on methadone. She does think it has gotten worse, sometimes radicular pain. She is still having a lot of pain in the knee, this is worse when she is moving it around-when she gets up and walks or stands. She still wears brace on knee most of the time. She is using a cane, she is worried she will fall. She denies prior surgery on the back. Per patient/chart review there is a past medical history of: HTN Lumbar disease OUTPATIENT MEDICATIONS Current Outpatient Medications Medication Sig - potassium chloride in water 20 mEq/100 mL IVPB Inject 20 mEq intravenously one time only. - ALPRAZolam (XANAX) 0.5 mg tablet TAKE 1 TABLET BY ORAL ROUTE 2 TIMES PER DAY NEEDED FOR ANXIETY - lisinopril (ZESTRIL, PRINIVIL) 20 mg tablet Take 20 mg by mouth once daily. - magnesium oxide (MAG-OX) 400 mg (241.3 mg magnesium) tablet Take 1 tablet by mouth twice daily. No current facility-administered medications for this visit. Methadone MEDICAL HISTORY PAST MEDICAL HISTORY Diagnosis Date - Adrenal nodule (HCC) - Cervical strain - Chest pain - Concussion - Fatigue - Gastroenteritis - HTN (hypertension) - Lumbar disc disease - Navicular fracture - MONIQUE (obstructive sleep apnea) SURGICAL HISTORY PAST SURGICAL HISTORY Procedure Laterality Date - CHOLECYSTECTOMY - PAST SURGICAL HISTORY OF fatty tumor removal SOCIAL HISTORY Social History Tobacco Use - Smoking status: Former Smoker Packs/day: 0.50 Years: 10.00 Pack years: 5.00 Types: Cigarettes Quit date: 08/15/2019 Years since quittin.2 - Smokeless tobacco: Never Used Substance Use Topics - Alcohol use: No - Drug use: No FAMILY HISTORY FAMILY HISTORY Problem Relation Age of Onset - Hypertension Mother - Diabetes Father - Hypertension Father - Heart Father 48 cabgx6 ALLERGIES ALLERGIES No Known Allergies PHYSICAL EXAM: BP 120/82 (BP Site: Left Arm, BP Position: Sitting, BP Cuff Size: Regular Adult) Pulse 69 Ht 154.9 cm (5' 1 ) Wt 118.6 kg (261 lb 8 oz) LMP 05/07/2015 SpO2 100% BMI 49.41 kg/m? General: General appearance: Awake and alert. No distress. Cooperative with exam. Skin: No rash or jaundice. HEENT: Atraumatic. Anicteric. Extremities: No edema. No obvious deformity. Musculoskeletal: No obvious joint swelling. Psych: Affect appropriate. Neurological: ? Mental Status: ? Alert. Speech fluent. - Cranial Nerves: - CNII: No RAPD. Visual ya intact. - CNIII, IV, : PERRL. No nystagmus. EOMI. - CN V: Facial sensation intact bilaterally to fine touch. - CN VII: Facial muscles symmetric and strong. No ptosis - CN VIII: Hears finger rub well bilaterally. - CN IX: No hypophonia. - CN X: Palate elevates symmetrically. - CN XI: Full strength shoulder shrug bilaterally. - CN XII: Tongue protrusion full and midline. No atrophy or fasciculations. - No significant dysarthria ? Motor: Tone is normal. ? Fasciculations none in extremities. ? Atrophy none. ? Individual muscle group testing (MRC grade out of 5): Movement Neck flexion 5 Neck extension 5 Right Left Shoulder abduction 5 5 Arm flexion 5 5 Elbow flexion 5 5 Elbow extension 5 5 Wrist extension 5 5 Wrist flexion 5 5 Finger abduction - FDI 5 5 Finger abduction - ADM 5 5 Finger extension 5 5 Finger dist flex - 2/3 5 5 Finger dist flex - 4/5 5 5 Thumb flexion (FPL) 5 5 Thumb abduction (APB) 5 5 Hip flexion 5- 5 Hip extension 4+ 5 Hip adduction 4+ 5 Hip abduction 4+ (giveaw (more content not included)...[facility]05-17-2022 Instructions* Patient Instructions* Chas Romero DO - 11/12/2021 2:47 PM EDT You were seen today for right leg weakness, I ordered EMG to assess for this. Continue physical therapy exercises. [facility] History of Present illness Narrative* Chas Romero DO - 11/12/2021 2:00 PM EDT Neuromuscular Clinic New Patient Visit SERVICE DATE: 11/12/2021 PCP: Smiley Urias MD [address] [place], [place] [id number] Reason for Evaluation: Consultation requested by Self for an opinion regarding right leg weakness Family/Friend accompanying the patient today: none HPI: This is Ms. Nabila Jewell, a 36 year old female who presents to the [facility] with the chief complaint above. She had an injury at work (March 2021)-she fell and hit her head on a prep table and fell onto her knee. She had difficulty moving to get up after this. She went to [facility] in [place]. She was evaluated and did testing and said there was a contusion and swelling and she was put in knee immobilizer and was in this for a few months. She has noticed weakness in that leg, it gave out once on herand she fell with this. When she walks, she feels like the leg is going to give out on her and she limps with this. This has been getting stronger but has been taking more time. She stopped physical therapy now at this point. She occasionally gets some numbness around the knee and then this was from knee down to the toe. She does have back pain, she had low back pain and was on opiates for some time and now is on methadone. She does think it has gotten worse, sometimes radicular pain. She is still having a lot of pain in the knee, this is worse when she is moving it around-when she gets up and walks or stands. She still wears brace on knee most of the time. She is using a cane, she is worried she will fall. She denies prior surgery on the back. Per patient/chart review there is a past medical history of: HTN Lumbar disease OUTPATIENT MEDICATIONS Current Outpatient Medications Medication Sig potassium chloride in water 20 mEq/100 mL IVPB Inject 20 mEq intravenously one time only. ALPRAZolam (XANAX) 0.5 mg tablet TAKE 1 TABLET BY ORAL ROUTE 2 TIMES PER DAY NEEDED FOR ANXIETY lisinopril (ZESTRIL, PRINIVIL) 20 mg tablet Take 20 mg by mouth once daily. magnesium oxide (MAG-OX) 400 mg (241.3 mg magnesium) tablet Take 1 tablet by mouth twice daily. No current facility-administered medications for this visit. Methadone MEDICAL HISTORY PAST MEDICAL HISTORY Diagnosis Date Adrenal nodule (HCC) Cervical strain Chest pain Concussion Fatigue Gastroenteritis HTN (hypertension) Lumbar disc disease Navicular fracture MONIQUE (obstructive sleep apnea) SURGICAL HISTORY PAST SURGICAL HISTORY Procedure Laterality Date CHOLECYSTECTOMY PAST SURGICAL HISTORY OF fatty tumor removal SOCIAL HISTORY Social History Tobacco Use Smoking status: Former Smoker Packs/day: 0.50 Years: 10.00 Pack years: 5.00 Types: Cigarettes Quit date: 08/15/2019 Years since quittin.2 Smokeless tobacco: Never Used Substance Use Topics Alcohol use: No Drug use: No FAMILY HISTORY FAMILY HISTORY Problem Relation Age of Onset Hypertension Mother Diabetes Father Hypertension Father Heart Father 48 cabgx6 ALLERGIES ALLERGIES No Known Allergies PHYSICAL EXAM: BP 120/82 (BP Site: Left Arm, BP Position: Sitting, BP Cuff Size: Regular Adult) Pulse 69 Ht 154.9 cm (5' 1 ) Wt 118.6 kg (261 lb 8 oz) LMP 05/07/2015 SpO2 100% BMI 49.41 kg/m General: General appearance: Awake and alert. No distress. Cooperative with exam. Skin: No rash or jaundice. HEENT: Atraumatic. Anicteric. Extremities: No edema. No obvious deformity. Musculoskeletal: No obvious joint swelling. Psych: Affect appropriate. Neurological: Mental Status: Alert. Speech fluent. Cranial Nerves: CNII: No RAPD. Visual ya intact. CNIII, IV, : PERRL. No nystagmus. EOMI. CN V: Facial sensation intact bilaterally to fine touch. CN VII: Facial muscles symmetric and strong. No ptosis CN VIII: Hears finger rub well bilaterally. CN IX: No hypophonia. CN X: Palate elevates symmetrically. CN XI: Full strength shoulder shrug bilaterally. CN XII: Tongue protrusion full and midline. No atrophy or fasciculations. No significant dysarthria Motor: Tone is normal. Fasciculations none in extremities. Atrophy none. Individual muscle group testing (MRC grade out of 5): Movement Neck flexion 5 Neck extension 5 Right Left Shoulder abduction 5 5 Arm flexion 5 5 Elbow flexion 5 5 Elbow extension 5 5 Wrist extension 5 5 Wrist flexion 5 5 Finger abduction - FDI 5 5 Finger abduction - ADM 5 5 Finger extension 5 5 Finger dist flex - 2/3 5 5 Finger dist flex - 4/5 5 5 Thumb flexion (FPL) 5 5 Thumb abduction (APB) 5 5 Hip flexion 5- 5 Hip extension 4+ 5 Hip adduction 4+ 5 Hip abduction 4+ (giveaway) 5 Knee extension 4+ (giveaway)5 5 Knee flexion 4 (give away) 5 Dorsiflexion 5 w/giveaway 5 Plantarflexion 5 5 Inversion 5 5 Eversion 4+ 5 Reflexes: Right Left Bicep 2+/4 2+/4 Tricep 2+/4 2+/4 BrRad 2+/4 2+/4 Knee 2+/4 2+/4 Ankle 2+/4 2+/4 Pathological Reflexes: 1. Babinski: flexor response bilaterally 2. Farias: absent Frontal Release Signs: Deferred Sensation: 1. Pinprick: intact in upper and lower 2. Vibration: 30+ in hands, 18 in feet 3. Proprioception: intact at great toes Coordination: Romberg negative. Gait: Able to rise from chair with arms crossed unassisted. Normal, narrow-based gait. Able to tandem walk. Able to walk on toes and heels. ASSESSMENT: This is Nabila Jewell, a 36 year old female with: 1. Right knee injury w/ reported right leg weakness Patient presents after knee injury in March with right leg weakness after this w/ slow improvement with physical therapy w/ intermittent numbness around knee that radiates down her foot. Her exam today shows intact neurological exam except for mild weakness in right lower extremity with decreasedeffort and some give-away weakness. I ordered an EMG to assess for any lumbosacral involvement but this is overall less likely. There may be some underlying deconditioning and I encouraged her to continue therapy exercises. PLAN: -EMG of RLE -RTC in 3 months -The impression above as well as the plan as outlined below were extensively discussed with the patient () who voiced understanding. All questions were answered to their satisfaction. -Labs/Studies: Orders Placed This Encounter potassium chloride in water 20 mEq/100 mL IVPB Sig: Inject 20 mEq intravenously one time only. ALPRAZolam (XANAX) 0.5 mg tablet Sig: TAKE 1 TABLET BY ORAL ROUTE 2 TIMES PER DAY NEEDED FOR ANXIETY lisinopril (ZESTRIL, PRINIVIL) 20 mg tablet Sig: Take 20 mg by mouth once daily. magnesium oxide (MAG-OX) 400 mg (241.3 mg magnesium) tablet Sig: Take 1 tablet by mouth twice daily. This note was partially created using voice recognition software and is inherently subject to errors including those of syntax and sound-alike substitutions which may escape proofreading. In such instances, original meaning may be extrapolated by contextual derivation. Chas Romero DO Staff, Neuromuscular Specialist I spent a total of 60 minutes on the date of the service which included preparing to see the patient, [id number] patient care, completing clinical documentation, obtaining and/or reviewing separately obtained history, performing a medically appropriate examination, counseling and educating the pat ient/family/caregiver and ordering medications, tests, or procedures. [facility] Miscellaneous Notes* Telephone Encounter - Sky Rapp - 10/22/2021 10:54 AM EDT Referral, medical records received and scanned in for review. documented in this [facility] Evaluation note* Encounter Date Diagnosis Assessment Notes Treatment Notes Treatment Clinical Notes Aug, Sprain of unspecified site of right knee, initial encounter (ICD-10 - S83.91XA) Continue physical therapy with approval [facility] and referral to neurology for knee weakness for second opion. Use the right knee as tolerated no restrictions. Continue off work. Aug, Contusion of right knee, initial encounter (ICD-10 - S80.01XA) Nabila Jewell returns with right knee contusion. MRI was reviewed and negative. At this juncture we have discussed the findings and diagnosis as well as personally reviewed appropriate imaging and performed interpretation of related testing and examination with the patient in office today. Nabila does not seem to be improving at a normal rate for the injury that has occurred. She does have history of chronic pain which could be leading the slow recovery. Structurally both knees sound and I will continue rehabbing this until she is ready for full return. She has no restrictions from an orthopedic standpoint and the only reason she is unable to work is her subjective knee pain. Continue restrictions-of f work, Continue with therapy [employer] Other 01-26-2022 Evaluation note* Encounter Date Diagnosis Assessment Notes Treatment Notes Treatment Clinical Notes Jun, Contusion of right knee, initial encounter (ICD-10 - S80.01XA) Nabila Jewell returns with right knee contusion. MRI was reviewed and negative. At this juncture we have discussed the findings and diagnosis as well as personally reviewed appropriate imaging and performed interpretation of related testing and examination with the patient in office today. Nabila does not seem to be improving at a normal rate for the injury that has occurred. She does have history of chronic pain which could be leading the slow recovery. Structurally both knees sound and I will continue rehabbing this until she is ready for full return. She has no restrictions from an orthopedic standpoint and the only reason she is unable to work is her subjective knee pain. Continue restrictions-off work, Continue with therapy [employer] Other 12-15-2021 Evaluation note* Encounter Date Diagnosis Assessment Notes Treatment Notes Treatment Clinical Notes May, Contusion of right knee, initial encounter (ICD-10 - S80.01XA) Nabila Jewell presents with right knee contusion. MRI was reviewed and negative. At this juncture we have discussed the findings and diagnosis as well as personally reviewed appropriate imaging and performed interpretation of related testing and examination with the patient in office today. Continue off work per patient being unable to return to full activities. Continue physical therapy with weightbearing as tolerated range of motion as tolerated. Continue brace wear as needed, not required. Follow-up in 6 weeks for reevaluation. We do have approval for cortisone injection but patient declined this today, if not better in 6 weeks and plan for cortisone injection. Nabila does not seem to be improving at a normal rate for the injury that has occurred. She does have history of chronic pain which could be leading the slow recovery. Structurally both knees sound and I will continue rehabbing this until she is ready for full return. She has no restrictions from an orthopedic standpoint. As patient is improving at this time, we will continue physical therapy and hold off on the approved cortisone injection. May consider cortisone injection next visit if no improvement. Patient provided cane order today, is in need of this to limit weight bearing on the affected leg. Continue off work [employer] Other 11-17-2021 Evaluation note* Encounter Date Diagnosis Assessment Notes Treatment Notes Treatment Clinical Notes Apr, Contusion of right knee, initial encounter (ICD-10 - S80.01XA) Nabila Jewell presents with right knee contusion. MRI was reviewed and negative. At this juncture we have discussed the findings and diagnosis as well as personally reviewed appropriate imaging and performed interpretation of related testing and examination with the patient in office today. At this point I would get her started in physical therapy right away to get her knee motion back. She has no restrictions to the right leg. She has seen an occupational physician at [facility] who is ordered a hinged knee brace for her which I think is reasonable. PT for weightbearing as tolerated, range of motion as tolerated. Patient states she is unable to work with her knee at this time. Follow-up after 6 weeks of therapy. Did discuss possible cortisone injection which patient declines at this time. We will get approval for cortisone injection in case she changes her mind. Reviewed MRI We will provide a prescription for formal physical therapy. The regular use of exercises may be beneficial in relieving painful symptoms. 6 weeks therapy. Apply for for cortisone injection. [facility] Continue off work [employer] Other 10-20-2021 Evaluation note* Encounter Date Diagnosis Assessment Notes Treatment Notes Treatment Clinical Notes Mar, Contusion of right knee, initial encounter (ICD-10 - S80.01XA) Nabila Jewell presents with right knee contusion. At this juncture we have discussed the findings and diagnosis as well as personally reviewed appropriate imaging and performed interpretation of related testing and examination with the patient in office today. Prior medical notes from Dr. Sloan and history have been reviewed. At this time I would recommend MRI to evaluate for injury including nondisplaced patellar fracture and extensor mechanism rupture. We will plan for follow-up after MRI is complete. Off work with limited weightbearing and use of crutches for stability until reevaluation. The patient has been involved in our cooperative treatment plan and agrees to move forward with treatment at this time. Xrays reviewed with patient today. We discussed continuing with knee brace at this time. Continue with use of cutches at this time. Patient instructed on ice and elevation for swelling and pain relief.I have concern for meniscal tear based on the history of this condition and physical exam findings. This condition could require surgical treatment. An MRI will be necessary to plan futher treatment. Patient instructed on use of occasional heat to area and motion exercise. We will submit for an MRI approval throught [facility]. Continue off of work. Mar, Other See orders for this visit as documented in the electronic medical record. [employer] Other 10-06-2021 NoteChief Complaint consultation for abscess x 2 HPI Staff 35 year old female presents on consultation from Dr. Urias for abscess x 2. One located central, lower abdomen. Present about one month. Has not opened or drained. She did manually express scant amountclear material. The other located left lower back. Present about 2 weeks. This has not spontaneously drained. Did manually express scant clear/bloody material from this. Placed on Cipro 500mg BID x 10 days on 04/01, she is taking as prescribed. History of Present Illness 35 yo female with h/o superficial abscesses abdomen and back; treated with antibiotics by Dr Urias; no drainage, has been trying to squeeze areas; sore at times; improving. Review of Systems PHQ Score Initial Depression Screen Score: 0 ROS - Provider Constitutional: no fever, no sweats, no weight loss. Eyes: no glasses, no blurred vision, no visual loss. ENMT: no dentures, no hoarseness, no swallowing difficulties, no hearing loss, no ear infection(s),no nose bleeds. Cardiovascular: normal blood pressure, no chest pain, regular heartbeat, no heart murmur. Respiratory: no shortness of breath, no cough, no asthma, no wheezing. Gastrointestinal: no nausea, no vomiting, no diarrhea, no constipation, no blood in stool, no change in bowel habits, no abdominal pain, no hepatitis. Genitourinary: no kidney stones, no urine infection, no dysuria. Musculoskeletal: no pain, no weakness. Skin: no changing moles, no rash, yes skin lumps. Neurologic: no seizures, no epilepsy, no headache. Psychiatric: no emotional or psychiatric problem. Heme/Lymph: no bleeding problems, no anemia, no blood clots, no transfusions. Allergy/Immunologic: no swollen lymph nodes/glands, no IV drug abuse. Other: Additional ROS info: Except as noted in the above Review of Systems and in the History of Present Illness, all other systems have been reviewed and are negative or noncontributory. ! Physical Exam Vitals & Measurements T: 36.2 ?C (Temporal Artery) HR: 72(Peripheral) RR: 16 BP: 138/82 HT: 154.94 cm HT: 154.9 cm WT: 115 kg WT: 115.0 kg BMI: 47.9 HEENT: normal conjunctiva, sclera clear, no scleral icterus, EOM intact, PERRLA, oral mucosa moist without lesions. Neck: trachea midline, no mass, symmetric, no thyromegaly or nodules, no adenopathy Respiratory: lungs CTA, respirations non labored. Cardiovascular: regular rate and rhythm, no murmur, no pedal edema or varicosities. Musculoskeletal: normal gait, digits and nails without infection, nodes, cyanosis, clubbing. Skin: no rashes , left lower back with 2 cm raised area with resolving inflammation, no cellulitis,no fluctuance; no drainage; lower mid abdomen with 1 cm area of induration, no drainage or fluctuance; no ulcers, no subcutaneous nodules, induration. Psychiatric/Neuro: oriented to time, place, person, judgement normal, affect appropriate for age, insight intact, no focal deficits. Tests: , review of old records completed, Assessment/Plan 1. Furuncle of abdominal wall (L02.221: Furuncle of abdominal wall) resolving, do not squeeze area; keep clean and dry; complete antibiotics; call with problems/questions. 2. Furuncle of back [any part, except buttock] (L02.222: Furuncle of back [any part, except buttock]) see # 1 Follow-up No qualifying data available Problem List/Past Medical History Ongoing Adrenal cortical adenoma BMI 45.0-49.9, adult Disc disease, degenerative, cervical Dysmenorrhea Eczema Furuncle Furuncle of back [any part, except buttock] HTN (hypertension) Hypokalemia Hypomagnesemia Low back pain potentially associated with radiculopathy Migraines Morbid obesity Psoriasis Sleep apnea Historical No qualifying data Procedure/Surgical History Adrenalectomy (07/25/2019), Cardiac catheterization (02/03/2017), Renal angiogram (02/03/2017), Cholecystectomy, Dilation and curettage of uterus after . Medications Cipro 500 mg Tab, 500 mg= 1 tab(s), Oral, q12hr lisinopril 20 mg Tab, 20 mg= 1 tab(s), Oral, Daily magnesium oxide 400 mg Tab, 400 mg= 1 tab(s), Oral, BID methadone 5 mg/5 mL oral solution, 38 mg= 38 mL, Oral, q6hr, PRN potassium chloride 20 mEq ER Tab, 20 mEq= 1 tab(s), Oral, Daily triamcinolone Top 0.1% Crm, 1 james, Topical, BID Xanax 1 mg Tab, 1 mg= 1 tab(s), Oral, Bedtime, PRN Allergies erythromycin (Anaphylaxis) Social History Alcohol - Denies Alcohol Use, 04/03/2021 Substance Abuse - Denies Substance Abuse, 04/03/2021 Tobacco Former smoker, quit more than 30 days ago Tobacco Use:. Never Smokeless Tobacco Use:. Cigarettes, Started age 18.0 Years. Stopped age 34 Years., 04/03/2021 Family History Diabetes mellitus type 2: Father. Hyperlipidemia: Father. Hypertension: Mother and Father.[facility]: Result Comment: Electronically Signed By: LAVELL QUARLES, Edson Strong\Date and Time Signed: 04/03/21 16:35 EDTEvaluation note* Diagnosis Right leg weakness- Primary Other musculoskeletal symptoms referable to limbs [email or web address] [email or web address] Other Evaluation note* Diagnosis Right leg weakness Other musculoskeletal symptoms referable to limbs [facility]* Diagnosis Right leg weakness- Primary Other musculoskeletal symptoms referable to limbs documented in this encounter [facility] general Narrative - Reported* Type Description Date Medical History Chronic back pain Medical History HTN Medical History Anxiety Surgical History cholecystectomy Surgical History C section x 2 Surgical History pilonidal cyst Hospitalization History HTN [facility] [employer] Other History general Narrative - Reported* Type Description Date Medical History Chronic back pain Medical History HTN Medical History Anxiety Surgical History cholecystectomy Surgical History C section x 2 Surgical History pilonidal cyst Hospitalization History HTN Hospitalization History see surgeries [employer] Other Reason for referral (narrative)* Outpatient Procedure (Routine) - Authorized Specialty Diagnoses / Procedures Referred By Daniel perry Referred To [facility] Diagnoses Right leg weakness Procedures [facility](NEURO/NI) NERVE CONDUCTION STUDIES 9-10 STUDIES Chas Romero DO [address] [place] [address] [facility] [address] [place] [address] Referral ID Status Reason Start Date Expiration Date Visits Requested Visits Authorized [id number] Authorized Auto-Generat ed Referral 11/12/2021 11/12/2022 1 1 [facility] for referral (narrative)* Reason referral for neurolo gy for weakness of the right knee and second opinion Diagnosis 1 Sprain of unspecifie d site of right knee, initial encounter (S83.91XA) [facility] Referring Provider First Name Rolando Referring Provider Last Name Miracle Referring Provider Specialty Orthopedic Surgery Referred Organization Unknown Facility Referred Provider Specialty Neurology Referral Priority Routine [employer] Other Summary Purpose Family History No Family History Records FoundNo Family History Records FoundNo Family History Records FoundNo Family History Records FoundNo Family History Records FoundNo Family History Records FoundNo Family History Records FoundNo Family History Records FoundNo Family History Records FoundNo Family History Records FoundNo Family History Records Found Advance Directives No Advanced Directives Records FoundNo Advanced Directives Records FoundNo Advanced Directives Records FoundNo Advanced Directives Records FoundNo Advanced Directives Records FoundNo Advanced Directives Records FoundNo Advanced Directives Records FoundNo Advanced Directives Records FoundNo Advanced Directives Records FoundNo Advanced Directives Records FoundNo Advanced Directives Records Found Additional Source Comments INFORMATION SOURCE (unrecogn ized section and content) DATE CREATED AUTHOR 12/18/2017 Becka mann DATE CREATED AUTHOR AUTHOR'S ORGANIZ ATION 03/02/2020 [facility] DATE CREATED AUTHOR AUTHOR'S ORGANIZ ATION 03/06/2021 [facility] DATE CREATED AUTHOR AUTHOR'S ORGANIZ ATION 04/10/2021 Naresh H[facility] DATE CREATED AUTHOR AUTHOR'S ORGANIZ ATION 09/29/2021 [facility] DATE CREATED AUTHOR AUTHOR'S ORGANIZ ATION 03/06/2022 [facility] DATE CREATED AUTHOR AUTHOR'S ORGANIZ ATION 04/04/2022 [facility] DATE CREATED AUTHOR AUTHOR'S ORGANIZ ATION 08/29/2022 [facility] DATE CREATED AUTHOR AUTHOR'S ORGANIZ ATION 03/08/2023 [facility] DATE CREATED AUTHOR AUTHOR'S ORGANIZ ATION 06/24/2023 [facility] DATE CREATED AUTHOR AUTHOR'S ORGANIZ ATION 06/26/2023 [facility] Source Comments (unrecognize d section and content) In the event this informatio n is protected by the Federal Confidentiality of Alcohol and Drug Abuse Patient Records regulations: The Federal rules restrict any use of the information to criminally investigate or prosecute any alcohol or drug abuse patient.[facility] HospitalIn the event this information is protected by the Federal Confidentiality of Alcohol and Drug Abuse Patient Records regulations: The Federal rules restrict any use of the information to criminally investigate or prosecute any alcohol or drug abuse patient.[facility] HospitalIn the event this information is protected by the Federal Confidentiality of Alcohol and Drug Abuse Patient Records regulations: The Federal rules restrict any use of the information to criminally investigate or prosecute any alcohol or drug abuse patient.[facility] HospitalIn the event this information is protected by the Federal Confidentiality of Alcohol and Drug Abuse Patient Records regulations: The Federal rules restrict any use of the information to criminally investigate or prosecute any alcohol or drug abuse patient.[facility] HospitalIn the event this information is protected by the Federal Confidentiality of Alcohol and Drug Abuse Patient Records regulations: The Federal rules restrict any use of the information to criminally investigate or prosecute any alcohol or drug abuse patient.[facility] HospitalIn the event this information is protected by the Federal Confidentiality of Alcohol and Drug Abuse Patient Records regulations: The Federal rules restrict any use of the information to criminally investigate or prosecute any alcohol or drug abuse patient.[facility] Reason for Visit (unrecogniz ed section and content) Reason Comments Received Outside Medical Records Reason Comments New Patient Musculoskeletal Problem RT lower extremi ties Reason Comments Insurance Authorization Reason Comments EMG Specialty Diagnoses / Procedures Referred By Daniel t Referred To Contact [facility] Diagnoses Right leg weakness Procedures EMG(NEURO/NI) NERVE CONDUCTION STUDIES 9-10 STUDIES Chas Romero DO [address] [place] [address] [facility] [address] [place] [address] Referral ID Status Reason Start Date Expiration Date V isits Requested Visits Authorized [id number] Closed Auto-Generate d Referral 11/12/2021 11/12/2022 1 1 Reason Comments Results Reason Comments Established Patient Follow Up Visit Care Teams (unrecognized sec tion and content) Speech Language Therapist Relationship Specialty Start Date End Date Smiley Urias MD PCP - General Family Practice 03/02/14 Serafin Bartlett, DO [address] [phone] Referring Neurology 04/14/19 Rolando Turner, DO [address] [place] [address] Referring Orthopedics 10/11/21 Speech Language Therapist Relationship Specialty Start Date End Date Smiley Urias MD PCP - General Family Practice 03/02/14 Serafin Bartlett, DO [address] [phone] Referring Neurology 04/14/19 Rolando Turner, DO [address] [place] [address] Referring Orthopedics 10/11/21 Speech Language Therapist Relationship Specialty Start Date End Date Smiley Urias MD PCP - General Family Practice 03/02/14 Serafin Bartlett, DO [address] [place] [phone] Referring Neurology 04/14/19 Rolando Turner, DO [address] [place] [address] Referring Orthopedics 10/11/21 Zehra Holly, [employer] [address] [place] [phone] Referring Family Practice 11/19/21 Speech Language Therapist Relationship Specialty Start Date End Date Smiley Urias MD PCP - General Family Practice 03/02/14 Serafin Bartlett, DO [address] [place] [phone] Referring Neurology 04/14/19 Rolando Turner, DO [address] [place] [address] Referring Orthopedics 10/11/21 Zehra Holly, [employer] [address] [place] [phone] Referring Family Practice 11/19/21 Speech Language Therapist Relationship Specialty Start Date End Date Smiley Urias MD PCP - General Family Practice 03/02/14 Serafin Bartlett, DO [address] [place] [phone] Referring Neurology 04/14/19 Rolando Turner, DO [address] [place] [address] Referring Orthopedics 10/11/21 Zehra Holly, [employer] [address] [place] [phone] Referring [facility] 11/19/21 FOR RECORDS PERTAINING TO PATIENTS WHO ARE OR HAVE BEEN ENROLLED IN A CHEMICAL DEPENDENCY/SUBSTANCEABUSE PROGRAM, SOME INFORMATION MAY BE OMITTED. This clinical summary was aggregated from multiple sources. Caution should be exercised in using it in the provision of clinical care. This summary normalizes information from multiple sources, and as a consequence, information in this document may materially change the coding, format and clinical context of patient data. In addition, data may be omitted in some cases. CLINICAL DECISIONS SHOULD BE BASED ON THE PRIMARY CLINICAL RECORDS. [facility]. provides no warranty or guarantee of the accuracy or completeness of information in this document.
--- NOTE | 2023-07-02 10:57 | XR_ITS ---
The [address] [address] Patient Name: RIVERA OWENS MRN: [id number] date: 1985 Sex: F Assigned Patient Location: [facility] Current Patient Location: Accession/Order Number: [id number] Exam Date: 07/02/2023 11:20 Report Date: 07/03/2023 07:31 At the request of: VICK TRIVEDI Procedure: XR cervical spine 5V EXAMINATION: XR cervical spine 5V HISTORY: cervicalgia COMPARISON: No relevant comparison available. FINDINGS: BONES: Reversal of normal cervical lordosis. No acute fracture or spondylolisthesis. No significant degenerative changes. DISC SPACES: Normal. No significant disc height narrowing, subluxation, or endplate abnormality. PARASPINOUS: Negative. No paraspinous abnormality is seen. OTHER: Negative. XR/XR cervical spine 5V IMPRESSION: Reversal of cervical lordosis Electronically authenticated by: JENNY ARIAS Date: 07/03/2023 07:31
== END 2023-07-02 10:50 | disposition home or self-care (01) ==
LOC: RAD 10:50
PROVIDERS: PCP Family Medicine; Visit Provider Anesthesiology
DX: M54.2 Cervicalgia (principal)
CPT/HCPCS: 72050

== ENCOUNTER 2023-07-13 14:43 | Outpatient (OUT) | payer OTHER, SELFPAY ==
--- OUTSIDE RECORDS SUMMARY | 2023-07-13 14:46 | XMS_ITS | CCD ---
Author Name Unknown Address [address] [place] [address] Organization [facility] Care Team Providers Care Manager Revenue Name Role Phone VILLEGASEDSON PLASCENCIA Unavailable Unavailab SMILEY Dawkins Unavailable Unavailable PROVIDER, UNKNOWN Attending Unavailable PROVIDER, UNKNOWN Admitting Unavailable Smiley Urias MD Primary Care Provider [phone] Serafin Bartlett DO Unavailable Rolando Turner DO Unavailable Zehra Holly CNP Unavailable Rolando Turner Unavailable Smiley Urias MD Primary Care Provider [phone] Serafin Barteltt DO Unavailable Rolando Turner DO Unavailable Zehra Holly CNP Unavailable SMILEY URIAS Referring [...] HOY ., DR REIS Primary Care Unavailable HEALY, DR JENNY Barbosa Consulting Unavailable HOY ., [...] Erythromycin; Translations: [ERYTHROMYCIN] Drug Allergy 2 anaphylaxis [facility] Repository (1 source) Erythromycin Drug Allergy 0 [facility] Repository (1 source) Erythromycin Drug Allergy 1 [place] Repository (1 source) Erythromycin; Translations: [ERYTHROMYCIN LACTOBIONATE] Drug Allergy 2 [facility] Repository (1 source) ALLERGIES NOT ON FILE; Translations: [ALLERGIES NOT ON FILE] Propensity to adverse reactions (disorder) [facility] Repository (1 source) Azithromycin Drug Allergy 1 [facility] Repository Medications Current Medications Medication Drug Class(es) [...] on above: Take 1 capsule by mo [facility] once daily. 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 Patient was sent the letter. [facility] 3603-05-2023 36 Patient states she received a note for work but she needs a note stating she is off work. Please email if MD writes she states it is for jobs and family services and she states that is what they need. [facility] Follow-Upon 03-04-2023 Follow-Up [id number] Rebecca Jewell 1985 F Date Provider Department Center 03/04/2023 PASCUAL HOPKINS MP PHYS MED Medical Pavi No family history on file Level of Service:38130 SC OFFICE/OUTPATIENT ESTABLISHED LOW MDM 20-29 MIN (GC) Reason for Visit and Comments: Concussion [827497] - [facility] Office Visiton 02-23-2023 Follow-up visit [id number] Rebecca Jewell 1985 F Date Provider Department Center 02/23/2023 JENNY MARAVILLA MP ORTHO MPORTHO No family history on file Level of Service:10283 SC POSTOP FOLLOW UP VISIT RELATED TO ORIGINAL PX (GC) Reason for Visit and Comments: Pain [136] Follow-up [109039] [facility] Office Visiton 01-12-2023 Follow-up visit [id number] Rebecca Jewell 1985 F Date Provider Department Center 01/12/2023 JENNY MARAVILLA MP ORTHO MPORTHO No family history on file Level of Service:97302 SC POSTOP FOLLOW UP VISIT RELATED TO ORIGINAL PX (GC) Reason for Visit and Comments: Post-op [483] Normal [facility] Orders Onlyon 01-08-2023 Orders Only [id number] Rebecca Jewell 1985 F Date Provider Department Center 01/08/2023 SHRUTHI TORREZ MP ORTHO MPORTHO No family history on file Normal [facility] OPNOTEon 01-01-2023 OPNOTE KNEE ARTHROSCOPY WIT H PARTILA LATERAL MENISCECTOMY (L), CHONDROPLASTY (L) Operative Note Date: 01/01/2023 Location: [facility] OR Name: Nabila Jewell, : 1985, Diagnosis Pre-op Diagnosis * 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 Condition: stable Jenny Holley Normal [facility] POCT GLUCOSE METER UNSOLICIT ED RESULTSon 01-01-2023 Glucose [Mass/Vol] 93 mg/dL Normal 70-105 [facility] Comment on above: Order Comment: Waive d Testing in the ED is performed under the ED CLIA certificate #[id number]. Result Comment: ngro andrew Performed By: #### L [id number] ####[facility] ([facility] [place] [address] HPon 12-31-2022 HP History Of Present Illness [...] chondroplasty and saucerization of discoid lateral meniscus [facility] [id number] 12-23-2022 [id number] Nothing to eat or drink after midnight [employer]MENT [employer] AND 24 HOUR CARE NO JEWELRY BRING INS AND ID Take the meds we spoke about w/a sip of water DOS: ALL NORMAL AM MEDS ARRIVE AT [facility] Documentationon 12-09-2022 Documentation [id number] Rebecca Jewell 1985 F Date Provider Department Center 12/09/2022 PARRISH STOVER MP DIETARY Medical Pavi Chart Close Cosign Required by: Samir Mendoza MD[[id number]] No family history on file [facility] 36on 12-03-2022 36 [employer] [facility] from [facility] calls to state the last note sent with the [employer] has a statement that patient can work 4 hours per day 20 hours per week but [employer] sent yesterday did not have any thing listed but patient states there were no changes and she is still to be off work. I pulled up [employer] sent in by narrative writer and I had forgotten to check the no changes box. In same note it does state by MD patient is not working and will be evaluated upon next ov. I informed her of the error and she requested I resend with the no changes box checked. Form was reprinted and faxed back. [facility] 36 Patient calls to sta deana her [...] so she will call the [employer] back. [facility] Telephoneon 12-03-2022 Telephone [id number] Rebecca Jewell 1985 Date Provider Department Center 12/03/2022 PASCUAL HOPKINS MP PHYS MED Medical Pavi No family history on file [facility] Follow-Upon 12-01-2022 Follow-Up [id number] Taj Jewellvenancio Espraza 1985 Date Provider Department Center 12/01/2022 PASCUAL HOPKINS MP PHYS MED Medical Pavi No family history on file Level of Service:88581 SC OFFICE/OUTPATIENT ESTABLISHED LOW MDM 20-29 MIN (GC) Reason for Visit and Comments: headaches [Other] - [facility] Follow-Upon 09-29-2022 Follow-Up [id number] Taj Jewellvenancio Esparza 1985 F Date Provider Department Center 09/29/2022 PASCUAL HOPKINS MP PHYS MED Medical Pavi No family history on file Level of Service:63872 SC OFFICE/OUTPATIENT ESTABLISHED LOW MDM 20-29 MIN Reason for Visit and Comments: headaches [Other] Leg Pain [582143] - Right [facility] Orders Onlyon 09-29-2022 Orders Only [id number] Taj Jewellvenancio Esparza 1985 F Date Provider Department Center 09/29/2022 PASCUAL HOPKINS MP PHYS MED Medical Pavi No family history on file Normal [facility] Office Visiton 09-15-2022 Follow-up visit [id number] Taj Jewellvenancio Esparza 1985 Provider Department [place] 09/15/2022 JENNY AMRAVILLA MP ORTHO MPORTHO No family history on file Level of Service:00648 SC OFFICE/OUTPATIENT ESTABLISHED MOD MDM 30-39 MIN (57) Reason for Visit and Comments: Pain [136] Normal [facility] CULTURE URINEon 08-22-2022 CULTURE URINE Culture Observations : MODERATE GROWTH OF MIXED GENITAL GISELLE. NO POTENTIAL PATHOGENS SEEN. Normal [facility] Comment on above: Performed By: #### T SH, LIPID, CMP, URIC, T7, CRP #### [facility] [address] [place] [address] Dr. Walker Gabriel UA RANDOM W/MICROSCOPICon BACTERIA MODERATE Abnormal NONE SEEN [facility] Comment on above: Performed By: #### U AMIC #### [facility] [address] [address] [address] Walker Gabriel Bilirubin Ql (U) Negative Normal NEGATIVE [facility] Comment on above: Performed By: #### U AMIC #### [facility] [address] [address] [address] Walker Gabriel CAST NONE SEEN Normal NONE SEEN [facility] Comment on above: Performed By: #### U AMIC #### [facility] [address] [place] [address] Dr. Walker Gabriel Clarity (U) CLEAR Normal CLEAR [facility] Comment on above: Performed By: #### U AMIC #### [facility] [address] [address] [address] Walker Gabriel Color (U) YELLOW Normal YELLOW [place] Comment on above: Performed By: #### U AMIC #### [facility] [address] [address] [address] Walker Gabriel Crystals LM Nom (Urine sed) NONE SEEN Normal NONE SEEN [place] Comment on above: Performed By: #### U AMIC #### [facility] [address] [address] [address] Walker Gabriel Epithelial cells LM Ql (Urine sed) FEW Abnormal NONE SEEN /RARE [facility] Comment on above: Performed By: #### U AMIC #### [facility] [address] [place] [address] Dr. Walker Gabriel Glucose Ql (U) Negative Normal NEGATIVE [facility] Comment on above: Performed By: #### U AMIC #### [facility] [address] [address] [address] Walker Gabriel Hemoglobin Ql (U) TRACE-LYSED Abnormal NEGATIVE [facility] Comment on above: Performed By: #### U AMIC #### [facility] [address] [place] [address] Dr. Walker Gabriel Ketones Ql (U) Negative Normal NEGATIVE [facility] Comment on above: Performed By: #### U AMIC #### [facility] [address] [address] [address] Walker Gabriel LEUKOCYTES Negative Normal NEGATIVE [place] Comment on above: Performed By: #### U AMIC #### [facility] [address] [address] [address] Walker Gabriel MUCOUS NONE SEEN Normal NONE SEEN [place] Comment on above: Performed By: #### U AMIC #### [facility] [address] [place] [address] Dr. Walker Gabriel Nitrite Ql (U) Negative Normal NEGATIVE [facility] Comment on above: Performed By: #### U AMIC #### [facility] [address] [place] [address] Dr. Walker Gabriel pH (U) 6.0 [pH] Normal 5-9 [facility] Comment on above: Performed By: #### U AMIC #### [facility] [address] [address] [address] Walker Gabriel RBC 0-2 Normal 0-2 [place] Comment on above: Performed By: #### U AMIC #### [facility] [address] [place] [address] Dr. Walker Gabriel SPEC GRAVITY >=1.030 Abnormal 1.005-<=1.025 [facility] Comment on above: Performed By: #### U AMIC #### [facility] [address] [place] [address] Dr. Wakler Gabriel UA PROTEIN Negative Normal NEGATIVE/ TRACE [facility] Comment on above: Performed By: #### U AMIC #### [facility] [address] [place] [address] Dr. Walker Gabriel Urobilinogen Qn (U) 0.2 {Natalie'U}/dL Normal 0.2 - 1. 0 [place] Comment on above: Performed By: #### U AMIC #### [facility] [address] [place] [address] Dr. Walker Gabriel WBC 2-5 Abnormal NONE SEEN [facility] Comment on above: Performed By: #### U AMIC #### [facility] [address] [place] [address] Dr. Walker Gabriel XR KUB 1 VIEWon [...] PASCUAL GAMBLE Date: 2022-08-22 12:42 Normal [facility] Follow-Upon 08-21-2022 Follow-Up [id number] Rebecca Jewell M 1985 Provider Department [place] 08/21/2022 Lupe-CAROLE PONCE MP ORTHO MPORTHO No family history on file Level of Service:02676 SC OFFICE/OUTPATIENT ESTABLISHED LOW MDM 20-29 MIN Reason for Visit and Comments: Pain [136] [facility] Clinical Supporton Clinical Support [id number] Rebecca Jewell M 1985 [facility] Provider Department [place] 08/06/2022 PARRISH STOVER MP DIETARY Medical Pavi Chart Close Cosign Required by: Samir Mendoza MD[1894] No family history on file Reason for Visit and Comments: Obesity [0919391935] Hypertension [686799] [facility] Erroneous Encounteron 2022 Erroneous Encounter [id number] Rebecca Jewell M 1985 [facility] 08/06/2022 PARRISH STOVER MP DIETARY Medical Pavi No family history on file Reason for Visit and Comments: Error (VOID this visit) [77] [facility] Documentationon 07-31-2022 Documentation [id number] Rebecca Jewell M 1985 [facility] 07/31/2022 PARRISH STOVER [facility] NUTRN [place] Medical C Chart Close Cosign Required by: Samir Mendoza MD[1890] No family history on file [facility] Follow-Upon 07-02-2022 Follow-Up [id number] Rebecca Jewell M 1985 [facility] Department [place] 07/02/2022 PASCUAL HOPKINS MP PHYS MED Medical Pavi No family history on file Level of Service:24826 SC OFFICE/OUTPATIENT ESTABLISHED MOD MDM 30-39 MIN Reason for Visit and Comments: Headache [52] Leg Pain [798171] - Right [facility] Refillon 05-28-2022 Refill [id number] Rebecca Jewell ey M 1985 Provider Department [place] 05/28/2022 PASCUAL HOPKINS MP PHYS MED Medical Pavi No family history on file Reason for Visit and Comments: Med Refill [832569] Normal [facility] Follow-Upon 05-15-2022 Follow-Up [id number] Rebecca Jewell M 1985 F Date Provider Department Center 05/15/2022 RUFINO DICKRESON MP ORTHO MPORTHO Chart Close Cosign Required by: Rufino Perdomo MD[[id number]] No family history on file Level of Service:08678 SC OFFICE/OUTPATIENT ESTABLISHED LOW MDM 20-29 MIN (GC) Reason for Visit and Comments: Follow-up [960340] - Follow up on left knee pain. [facility] Follow-Upon 04-30-2022 Follow-Up [id number] Rebecca Jewell M 1985 F Date Provider Department Center 04/30/2022 PASCUAL HOPKINS MP PHYS MED Medical Pavi No family history on file Level of Service:58238 SC OFFICE/OUTPATIENT ESTABLISHED MOD MDM 30-39 MIN (GC) Reason for Visit and Comments: headaches [Other] [facility] DARIO by IFAon 04-21-2022 Antinuclear Antibodies, IFA Negative Normal [place] Comment on above: Result Comment: Nega tive <1:80 Borderline 1:80 Positive >1:80 ICAP nomenclature: AC-0 For more information about Hep-2 cell patterns use ANApatterns.org, the official website for the International Consensus on Antinuclear Antibody (DARIO) Patterns (ICAP). Performed By: #### T SH, LIPID, CMP, URIC, T7, CRP #### [facility] [address] [address] [address] Walker Gabriel SLE PROFILE Aon 04-21-2022 Anti-DNA (DS) Ab Qn 3 IU/mL Normal 0-9 [facility] Comment on above: Result Comment: Nega tive <5 Equivocal 5 - 9 Positive >9 Performed By: #### S JUSTO #### [facility] [address] [place], [place] [address] Dr. Walker Gabriel Antichromatin Antibodies <0.2 Normal 0.0-0.9 [place] Comment on above: Performed By: #### S JUSTO #### [facility] [address] [address] [address] Walker Gabriel RA Latex Turbid. <10.0 Normal <14.0 [facility] Comment on above: Performed By: #### S JUSTO #### [facility] [address] [address] [address] Walker Gabriel TABLET REPAIR Antibodies <0.2 Normal 0.0-0.9 [facility] Comment on above: Performed By: #### S JUSTO #### [facility] [address] [place] [address] Dr. Walker Gabriel Sjogren's Anti-SS-A <0.2 Normal 0.0-0.9 [facility] Comment on above: Performed By: #### S JUSTO #### [facility] [address] [place] [address] Dr. Walker Grayogrlinda'lety Anti-SS-B <0.2 Normal 0.0-0.9 [facility] Comment on above: Performed By: #### S JUSTO #### [facility] [address] [place] [address] Dr. Walker Gabriel Lemus Antibodies <0.2 Normal 0.0-0.9 [facility] Comment on above: Performed By: #### S JUSTO #### [facility] [address] [place] [address] Dr. Walker Gabriel ANTISTREPTOLYSIN O AB (ASO)o n 04-19-2022 Antistreptolysin O Ab 227.2 IU/mL Critically high 0.0-200.0 [place] Comment on above: Performed By: #### T SH, LIPID, CMP, URIC, T7, CRP #### [facility] [address] [place] [address] Dr. Walker Gabriel INSULINon 04-19-2022 Insulin 20.8 uIU/mL Normal 2.6-24.9 [place] Comment on above: Performed By: #### T SH, LIPID, CMP, URIC, T7, CRP #### [facility] [address] [place] [address] Dr. Walker Gabriel CBC AUTO DIFFon 04-18-2022 BASO # 0.0 103/ul Normal 0.0-0.1 [facility] Comment on above: Performed By: #### T SH, LIPID, CMP, URIC, T7, CRP #### [facility] [address] [place] [address] Dr. Walker Gabriel Basophils/100 WBC (Bld) 0.4 % Normal 0.2-2.0 [facility] Comment on above: Performed By: #### T SH, LIPID, CMP, URIC, T7, CRP #### [facility] [address] [place] [address] Dr. Walker Gabriel EO # 0.1 103/ul Normal 0.0-0.7 [facility] Comment on above: Performed By: #### T SH, LIPID, CMP, URIC, T7, CRP #### [facility] [address] [place] [address] Dr. Walker Gabriel Eosinophils/100 WBC (Bld) 1.4 % Normal 0.9-7.0 [facility] Comment on above: Performed By: #### T SH, LIPID, CMP, URIC, T7, CRP #### [facility] [address] [place] [address] Dr. Walker Gabriel Erythrocyte distribution width (RBC) [Ratio] 12.8 % Normal 11.0-15.0 [facility] Comment on above: Performed By: #### T SH, LIPID, CMP, URIC, T7, CRP #### [facility] [address] [place] [address] Dr. Walker Gabriel Hematocrit (Bld) [Volume fraction] 38.1 % Normal 36.0-48.0 [facility] Comment on above: Performed By: #### T SH, LIPID, CMP, URIC, T7, CRP #### [facility] [address] [place] [address] Dr. Walker Gabriel Hemoglobin (Bld) [Mass/Vol] 12.3 g/dL Normal 12.0-16.0 [facility] Comment on above: Performed By: #### T SH, LIPID, CMP, URIC, T7, CRP #### [facility] [address] [place] [address] Dr. Walker Gabriel IG # 0.03 10e3/ul Normal 0.00-0.03 [place] Comment on above: Performed By: #### T SH, LIPID, CMP, URIC, T7, CRP #### [facility] [address] [place] [address] Dr. Walker Gabriel IG % 0.4 % Normal 0.0-0.5 [facility] Comment on above: Performed By: #### T SH, LIPID, CMP, URIC, T7, CRP #### [facility] [address] [place] [address] Dr. Walker Gabriel LYMPH # 2.6 103/ul Normal 1.2-3.8 [facility] Comment on above: Performed By: #### T SH, LIPID, CMP, URIC, T7, CRP #### [facility] [address] [place] [address] Dr. Walker Gabriel Lymphocytes/100 WBC (Bld) 35.5 % Normal 20.5-60.0 [place] Comment on above: Performed By: #### T SH, LIPID, CMP, URIC, T7, CRP #### [facility] [address] [place] [address] Dr. Walker Gabriel MANUAL DIFF REQ NO Normal [facility] Comment on above: Performed By: #### T SH, LIPID, CMP, URIC, T7, CRP #### [facility] [address] [place] [address] Dr. Walker Gabriel MCH (RBC) [Entitic mass] 28.7 pg Normal 26.7-34.0 [facility] Comment on above: Performed By: #### T SH, LIPID, CMP, URIC, T7, CRP #### [facility] [address] [place] [address] Dr. Walker Gabriel MCHC (RBC) [Mass/Vol] 32.3 g/dL Normal 29.9-35.2 [place] Comment on above: Performed By: #### T SH, LIPID, CMP, URIC, T7, CRP #### [facility] [address] [place] [address] Dr. Walker Gabriel MCV (RBC) [Entitic vol] 88.8 fL Normal 81.0-99.0 [facility] Comment on above: Performed By: #### T SH, LIPID, CMP, URIC, T7, CRP #### [facility] [address] [place] [address] Dr. Walker Gabriel MONO # 0.4 103/ul Normal 0.3-0.8 [facility] Comment on above: Performed By: #### T SH, LIPID, CMP, URIC, T7, CRP #### [facility] [address] [place] [address] Dr. Walker Gabriel Monocytes/100 WBC (Bld) 6.1 % Normal 1.7-12.0 [facility] Comment on above: Performed By: #### T SH, LIPID, CMP, URIC, T7, CRP #### [facility] [address] [place] [address] Dr. Walker Gabriel NEUT # 4.0 103/ul Normal 1.4-6.5 [facility] Comment on above: Performed By: #### T SH, LIPID, CMP, URIC, T7, CRP #### [facility] [address] [place] [address] Dr. Walker Gabriel Neutrophils/100 WBC (Bld) 56.2 % Normal 43.0-75.0 [facility] Comment on above: Performed By: #### T SH, LIPID, CMP, URIC, T7, CRP #### [facility] [address] [place] [address] Dr. Walker Gabriel Platelet mean volume (Bld) [Entitic vol] 8.3 fL Critically low 9.5-13.5 [facility] Comment on above: Performed By: #### T SH, LIPID, CMP, URIC, T7, CRP #### [facility] [address] [place] [address] Dr. Walker Gabriel PLT 328 103/ul Normal 150-450 [facility] Comment on above: Performed By: #### T SH, LIPID, CMP, URIC, T7, CRP #### [facility] [address] [address] [address] Walker Gabriel RBC 4.29 106/ul Normal 4.20-5.40 [place] Comment on above: Performed By: #### T SH, LIPID, CMP, URIC, T7, CRP #### [facility] [address] [address] [address] Walker Gabriel WBC 7.2 103/ul Normal 4.0-11.0 [place] Comment on above: Performed By: #### T SH, LIPID, CMP, URIC, T7, CRP #### [facility] [address] [address] [address] Walker Gabriel CRPon 04-18-2022 CRP 1.3 mg/dL Critically high <=1.0 [facility] Comment on above: Performed By: #### T SH, LIPID, CMP, URIC, T7, CRP #### [facility] [address] [place] [address] Dr. Walker Gabriel FREE THYROXINE INDEX T7on FTI 2.91 Normal 1.30-4.50 [place] Comment on above: Performed By: #### T SH, LIPID, CMP, URIC, T7, CRP #### [facility] [address] [address] [address] Walker Gabriel T3U 31.0 % Normal 30.0-39.0 [place] Comment on above: Performed By: #### T SH, LIPID, CMP, URIC, T7, CRP #### [facility] [address] [address] [address] Walker Gabriel T4 [Mass/Vol] 9.40 ug/dL Normal 4.80-13.90 [facility] Comment on above: Performed By: #### T SH, LIPID, CMP, URIC, T7, CRP #### [facility] [address] [place] [address] Dr. Walker Gabriel GLYCOHEMOGLOBIN A1Con 2021 ADA RECOMMENDATION SEE BELOW Normal [facility] Comment on above: Result Comment: ADA RECOMMENDED LIMIT 4.0 - 6.0 ADA THERAPEUTIC TARGET < 7.0 ACTION SUGGESTED > 7.0 Performed By: #### T SH, LIPID, CMP, URIC, T7, CRP #### [facility] [address] [address] [address] Walker Gabriel Glucose [Mass/Vol] 114 mg/dL Normal [facility] Comment on above: Performed By: #### T SH, LIPID, CMP, URIC, T7, CRP #### [facility] [address] [address] [address] Walker Gabriel HbA1c (Bld) [Mass fraction] 5.6 % Normal 4.5-6.2 [place] Comment on above: Performed By: #### T SH, LIPID, CMP, URIC, T7, CRP #### [facility] [address] [place] [address] Dr. Walker Gabriel IRONon 04-18-2022 Iron [Mass/Vol] 34.0 ug/dL Critically low 50.0-170.0 [facility] Comment on above: Performed By: #### I FRANCISCO #### [facility] [address] [place] [address] Dr. Walker Gabriel LIPID PROFILEon 04-18-2022 CHOL-HDL RATIO NORM SEE BELOW Normal [facility] Comment on above: Result Comment: 3.3 - 4.4 LOW RISK 4.4 - 7.1 AVERAGE RISK 7.1 - 11.0 MODERATE RISK >11.0 HIGH RISK Performed By: #### T SH, LIPID, CMP, URIC, T7, CRP #### [facility] [address] [place] [address] Dr. Walker Gabriel Cholesterol [Mass/Vol] 174 mg/dL Normal <=200 [place] Comment on above: Performed By: #### T SH, LIPID, CMP, URIC, T7, CRP #### [facility] [address] [place] [address] Dr. Walker Gabriel Cholesterol in HDL [Mass/Vol] 70 mg/dL Critically high 40-60 [place] Comment on above: Performed By: #### T SH, LIPID, CMP, URIC, T7, CRP #### [facility] [address] [place] [address] Dr. Walker Gabriel Cholesterol in LDL [Mass/Vol] 92.8 mg/dL Normal [place] Comment on above: Performed By: #### T SH, LIPID, CMP, URIC, T7, CRP #### [facility] [address] [address] [address] Walker Gabriel Cholesterol.total/Ch olesterol in HDL [Mass ratio] 2.5 {ratio} Normal [place] Comment on above: Performed By: #### T SH, LIPID, CMP, URIC, T7, CRP #### [facility] [address] [address] [address] Walker Gabriel HDL NORMAL > or = 60 mg/dl - LO W CARDIOVASCULAR RISK <40 mg/dl - HIGH CARDIOVASCULAR RISK Normal [place] Comment on above: Performed By: #### T SH, LIPID, CMP, URIC, T7, CRP #### [facility] [address] [place] [address] Dr. Walker Gabriel LDL CALC NORMAL SEE BELOW Normal [facility] Comment on above: Result Comment: <100 mg/dl OPTIMAL 100 - 129 mg/dl NEAR OR ABOVE OPTIMAL 130 - 159 mg/dl BORDERLINE HIGH 160 - 189 mg/dl HIGH >190 mg/dl VERY HIGH Performed By: #### T SH, LIPID, CMP, URIC, T7, CRP #### [facility] [address] [address] [address] Walker Gabriel Triglyceride [Mass/Vol] 56 mg/dL Normal <=150 [place] Comment on above: Performed By: #### T SH, LIPID, CMP, URIC, T7, CRP #### [facility] [address] [address] [address] Walker Gabriel VLDL CALC 11.2 mg/dL Normal [place] Comment on above: Performed By: #### T SH, LIPID, CMP, URIC, T7, CRP #### [facility] [address] [address] [address] Walker Gabriel PROF 14(COMP METB)on 04-18- 022 Albumin [Mass/Vol] 3.0 g/dL Critically low 3.4-5.0 [facility] Comment on above: Performed By: #### T SH, LIPID, CMP, URIC, T7, CRP #### [facility] [address] [place] [address] Dr. Walker Gabriel Albumin/Globulin [Mass ratio] 0.6 {ratio} Normal [place] Comment on above: Performed By: #### T SH, LIPID, CMP, URIC, T7, CRP #### [facility] [address] [place] [address] Dr. Walker Gabriel ALP [Catalytic activity/Vol] 102 U/L Normal 46-116 [place] Comment on above: Performed By: #### T SH, LIPID, CMP, URIC, T7, CRP #### [facility] [address] [place] [address] Dr. Walker Gabriel ALT [Catalytic activity/Vol] 19 U/L Normal 14-59 [place] Comment on above: Performed By: #### T SH, LIPID, CMP, URIC, T7, CRP #### [facility] [address] [place] [address] Dr. Walker Gabriel Anion gap [Moles/Vol] 7.9 mmol/L Normal [place] Comment on above: Performed By: #### T SH, LIPID, CMP, URIC, T7, CRP #### [facility] [address] [place] [address] Dr. Walker Gabriel AST [Catalytic activity/Vol] 12 U/L Critically low 15-37 [place] Comment on above: Performed By: #### T SH, LIPID, CMP, URIC, T7, CRP #### [facility] [address] [place] [address] Dr. Walker Gabriel Bilirubin [Mass/Vol] 0.1 mg/dL Critically low 0.2-1.0 [place] Comment on above: Performed By: #### T SH, LIPID, CMP, URIC, T7, CRP #### [facility] [address] [place] [address] Dr. Walker Gabriel Calcium [Mass/Vol] 8.9 mg/dL Normal 8.5-10.1 [facility] Comment on above: Performed By: #### T SH, LIPID, CMP, URIC, T7, CRP #### [facility] [address] [address] [address] Walker Gabriel Chloride [Moles/Vol] 103 mmol/L Normal 98-107 [facility] Comment on above: Performed By: #### T SH, LIPID, CMP, URIC, T7, CRP #### [facility] [address] [address] [address] Walker Gabriel CO2 [Moles/Vol] 28.4 mmol/L Normal 21.0-32.0 [facility] Comment on above: Performed By: #### T SH, LIPID, CMP, URIC, T7, CRP #### [facility] [address] [address] [address] Walker Gabriel Creatinine [Mass/Vol] 0.91 mg/dL Normal 0.55-1.02 [place] Comment on above: Performed By: #### T SH, LIPID, CMP, URIC, T7, CRP #### [facility] [address] [place] [address] Dr. Walker Gabriel EGFR-AF BERMUDIAN >60 Normal >=60 [facility] Comment on above: Performed By: #### T SH, LIPID, CMP, URIC, T7, CRP #### [facility] [address] [place] [address] Dr. Wlaker Gabriel EGFR-NON AF BERMUDIAN >60 Normal >=60 [place] Comment on above: Performed By: #### T SH, LIPID, CMP, URIC, T7, CRP #### [facility] [address] [address] [address] Walker Gabriel Globulin (S) [Mass/Vol] 4.7 g/dL Normal [place] Comment on above: Performed By: #### T SH, LIPID, CMP, URIC, T7, CRP #### [facility] [address] [place] [address] Dr. Walker Gabriel Glucose [Mass/Vol] 87 mg/dL Normal 74-106 [facility] Comment on above: Performed By: #### T SH, LIPID, CMP, URIC, T7, CRP #### [facility] [address] [place] [address] Dr. Walker Gabriel Potassium [Moles/Vol] 4.3 mmol/L Normal 3.5-5.1 [place] Comment on above: Performed By: #### T SH, LIPID, CMP, URIC, T7, CRP #### [facility] [address] [place] [address] Dr. Walker Gabriel Protein [Mass/Vol] 7.7 g/dL Normal 6.4-8.2 [facility] Comment on above: Performed By: #### T SH, LIPID, CMP, URIC, T7, CRP #### [facility] [address] [place] [address] Dr. Walker Gabriel Sodium [Moles/Vol] 135 mmol/L Critically low 136-145 [facility] Comment on above: Performed By: #### T SH, LIPID, CMP, URIC, T7, CRP #### [facility] [address] [place] [address] Dr. Walker Gabriel Urea nitrogen [Mass/Vol] 21.0 mg/dL Critically high 7.0-18.0 [place] Comment on above: Performed By: #### T SH, LIPID, CMP, URIC, T7, CRP #### [facility] [address] [place] [address] Dr. Walker Gabriel Urea nitrogen/Creatinine [Mass ratio] 23.1 mg/mg Normal [place] Comment on above: Performed By: #### T SH, LIPID, CMP, URIC, T7, CRP #### [facility] [address] [place] [address] Dr. Walker Gabriel TSHon 04-18-2022 TSH 2.570 uIU/mL Normal 0.358-3.740 [facility] Comment on above: Performed By: #### T SH, LIPID, CMP, URIC, T7, CRP #### [facility] [address] [place] [address] Dr. Walker Gabriel URIC ACID SERUMon 04-18-2022 Urate [Mass/Vol] 5.7 mg/dL Normal 2.6-6.0 [facility] Comment on above: Performed By: #### T SH, LIPID, CMP, URIC, T7, CRP #### [facility] [address] [address] [address] Walker Gabriel US VENOUS DOPPLER L [...] by: JENNY ARIAS Date: 2022-04-18 18:43 Normal [place] Clinical Supporton Clinical Support [id number] Rebecca Jewell 1985 [facility] Provider Department [place] 04/17/2022 MARISA SIMON [facility] No family history on file Reason for Visit and Comments: Worker's Compensation [732] Follow-up [553728] Concussion [849104] Normal [facility] Follow-Upon 04-03-2022 Follow-Up [id number] Rebecca Jewell 1985 [facility] Provider Department [place] 04/03/2022 260RUFINO MAY [facility] Close Cosign Required by: Rufino Perdomo MD[[id number]] No family history on file Level of Service:36701 SC OFFICE/OUTPATIENT ESTABLISHED LOW MDM 20-29 MIN (GC) Reason for Visit and Comments: Pain [136] Edema [[id number]] Follow-up [475284] Normal [facility] Erroneous Encounteron 2021 Erroneous Encounter [id number] Rebecca Jewell 1985 [facility] Provider Department [place] 03/31/2022 [id number] ERNANDEZ [facility]avi No family history on file Reason for Visit and Comments: Error (VOID this visit) [77] Normal [facility] CNOVon 02-03-2022 CNOV Office Visit (NMUA ) NABILA JEWELL ([id number]) 1985 F Date Time Provider Department 02/03/22 11:00 AM CHAS ROMERO During your visit today, we recorded the following information about you: Pulse Blood pressure Weight Height 66/minute 117/84 122.7 kg 1.549 m Chas Romero DO 02/03/2022 11:27 AM Signed [facility] Follow up Visit SERVICE DATE: 02/03/2022 PCP: [place] [address] [place] [address] Reason for Evaluation: Consultation requested by Self for an opinion regarding right leg weakness Family/Friend accompanying the patient today: none HPI: This is Ms. Nabila Jewell, a 36 year old female who presents to the [facility] with the chief complaint above. 02/03/2022: [...] get up after this. She went to [facility] in [place]. She was evaluated and did testing and [...] VIII: He (more content not included)... Normal [facility] 01-30-2022 [facility] Telephone (NEURST) NABILA JEWELL ([id number]) 1985 F Date Time Provider Department 01/30/22 [...] Status:Closed by CHAS ROMERO on 01/30/22 Normal [facility] MRI KNEE LT WO CONon 022 MRI [...] by: SMILEY CALVILLO Date: 2022-01-28 12:18 Normal [place] EMG(NEURO/NI)on 01-23-2022 [facility] MG MAMM DIAGNOSTIC 3D GREGORY CA Don 01-22-2022 MG MAMM DIAGNOSTIC 3D GREGORY CAD Patient: NABILA JEWELL. Exam Date: 01/22/2022 : 1985 Gender:F Ordering : DR SMILEY URIAS . Admission #: [id number] Family : Order #: [id number] CLICK HERE TO VIEW EXAM RADIOLOGY REPORT [...] Treatments None Family Cancers None LOCATION: [facility] BREAST COMPOSITION: Scattered areas fibroglandular density. FINDINGS: [...] Gamble M.D. on 01/22/2022 at 15:30 Normal [facility] FANTATAJNABILA M ([id number]) 1985 F Date Time Provider Department 12/06/21 [...] Fully Assessed Reason for Visit: Insurance Authorization [1943] Prescriptions as of 12/08/2021 - potassium chloride [...] Encounter Status:Closed by SKY RAPP on 12/06/21 [facility] 11-15-2021 [facility] NAIBLA JEWELL ([id number]) 1985 F Date Time Provider Department 11/15/21 CHAS ROMERO [facility] During your visit today, we recorded the following information about you: Rosana Shaw 11/15/2021 10:02 AM Addendum Pt requesting Dr. Romero send in C9 to workers comp for EMG. Cecilyiva phone [phone] ext [phone] Kassy PLEASE FAX TO:[phone] Also needs this faxed to corporate attorney [employer], [place] [employer] and [employer]. LPA2 Pt will call back with fax [...] Encounter Status:Closed by ROSANA VALVERDE on 04/03/22 [facility] CNOVon 11-12-2021 CNOV Office Visit (NMUAMH ) NABILA JEWELL ([id number]) 1985 F Date Time Provider Department 11/12/21 2:00 PM CHAS ORMERO [facility] During your visit today, we recorded the following information about you: Pulse Blood pressure Weight Height 69/minute 120/82 118.6 kg 1.549 m Chas Romero DO 11/12/2021 2:58 PM Signed [facility] New Patient Visit SERVICE DATE: 11/12/2021 PCP: Smiley Urias MD [address] [place] [address] Reason for Evaluation: Consultation requested by Self for an opinion regarding right leg weakness Family/Friend accompanying the patient today: none HPI: This is Ms. Nabila Jewell, a 36 year old female who presents to the [facility] with the chief complaint above. She had an injury at work (March 2021)-she fell and hit her head on a prep table and fell onto her knee. She had difficulty moving to get up after this. She went to [facility] in [place]. She was evaluated and did testing and [...] - FDI (more content not included)... [facility] NABILA JEWELL ([id number]) 1985 F Date Time Provider Department 10/22/21 CHAS ROMERO [facility] During your visit today, we recorded the following information about you: Sky Rapp 10/22/2021 10:54 AM Signed Referral, medical records received and scanned in for review. Allergies As of Date: 10/22/2021 (No Known Allergies) Date Reviewed: 06/14/2015 Reviewed by: Marly Fitzpatrick - Fully Assessed Reason for Visit: Received Outside Medical Records [4121] Prescriptions as of 10/22/2021 - Hydrochlorothiazide 12.5 [...] Status:Closed by SKY RAPP on 10/22/21 Normal [facility] CARDIAC MACIE 3-6on 2 CK [Catalytic activity/Vol] 135 U/L Normal 30-135 [place] Comment on above: Performed By: #### C MREP #### [facility] [address] [place] [address] Dr. Walker Gabriel CK.MB [Mass/Vol] 0.84 ng/mL Normal <=2.37 [facility] Comment on above: Performed By: #### C MREP #### [facility] [address] [address] [address] Walker Gabriel HSTROP 8.5 pg/mL Normal 4.0-35.5 [place] Comment on above: Result Comment: CUT- OFF POINTS HAVE BEEN ESTABLISHED BASED ON THE FOURTH UNIVERSAL DEFINITIONS OF MYOCARDIAL INFARCTION. THE UPPER REFERENCE LIMIT (URL) OF TROPONIN, DEFINED THE 99TH PERCENTILE OF cTnI DISTRIBUTION IN A REFERENCE POPULATION, HAS BEEN CONFIRMED THE DECISION THRESHOLD FOR MS DIAGNOSIS. Performed By: #### C MREP #### [facility] [address] [address] [address] Walker Gabriel CARDIAC MACIE ADMITon 022 CK [Catalytic activity/Vol] 114 U/L Normal 30-135 [facility] Comment on above: Performed By: #### T SH, LIPID, CMP, URIC, T7, CRP #### [facility] [address] [place] [address] Dr. Walker Gabriel CK.MB [Mass/Vol] 0.71 ng/mL Normal <=2.37 [facility] Comment on above: Performed By: #### T SH, LIPID, CMP, URIC, T7, CRP #### [facility] [address] [place] [address] Dr. Walker Gabriel HSTROP 6.1 pg/mL Normal 4.0-35.5 [facility] Comment on above: Result Comment: CUT- OFF POINTS HAVE BEEN ESTABLISHED BASED ON THE FOURTH UNIVERSAL DEFINITIONS OF MYOCARDIAL INFARCTION. THE UPPER REFERENCE LIMIT (URL) OF TROPONIN, DEFINED THE 99TH PERCENTILE OF cTnI DISTRIBUTION IN A REFERENCE POPULATION, HAS BEEN CONFIRMED THE DECISION THRESHOLD FOR MS DIAGNOSIS. Performed By: #### T SH, LIPID, CMP, URIC, T7, CRP #### [facility] [address] [place] [address] Dr. Walker Gabriel COLLINS 43.0 ng/mL Normal <=61.5 [facility] Comment on above: Performed By: #### T SH, LIPID, CMP, URIC, T7, CRP #### [facility] [address] [place] [address] Dr. Walker Gabriel CBC AUTO DIFFon 09-06-2021 BASO # 0.0 103/ul Normal 0.0-0.1 [facility] Comment on above: Performed By: #### T SH, LIPID, CMP, URIC, T7, CRP #### [facility] [address] [place] [address] Dr. Walker Gabriel Basophils/100 WBC (Bld) 0.5 % Normal 0.2-2.0 [facility] Comment on above: Performed By: #### T SH, LIPID, CMP, URIC, T7, CRP #### [facility] [address] [place] [address] Dr. Walker Gabriel EO # 0.0 103/ul Normal 0.0-0.7 [facility] Comment on above: Performed By: #### T SH, LIPID, CMP, URIC, T7, CRP #### [facility] [address] [address] [address] Walker Gabriel Eosinophils/100 WBC (Bld) 0.1 % Critically low 0.9-7.0 [facility] Comment on above: Performed By: #### T SH, LIPID, CMP, URIC, T7, CRP #### [facility] [address] [place] [address] Dr. Walker Gabriel Erythrocyte distribution width (RBC) [Ratio] 12.3 % Normal 11.0-15.0 [facility] Comment on above: Performed By: #### T SH, LIPID, CMP, URIC, T7, CRP #### [facility] [address] [place] [address] Dr. Walker Gabriel Hematocrit (Bld) [Volume fraction] 41.4 % Normal 36.0-48.0 [facility] Comment on above: Performed By: #### T SH, LIPID, CMP, URIC, T7, CRP #### [facility] [address] [place] [address] Dr. Walker Gabriel Hemoglobin (Bld) [Mass/Vol] 13.6 g/dL Normal 12.0-16.0 [facility] Comment on above: Performed By: #### T SH, LIPID, CMP, URIC, T7, CRP #### [facility] [address] [place] [address] Dr. Walker Gabriel IG # 0.02 10e3/ul Normal 0.00-0.03 [facility] Comment on above: Performed By: #### T SH, LIPID, CMP, URIC, T7, CRP #### [facility] [address] [place] [address] Dr. Walker Gabriel IG % 0.2 % Normal 0.0-0.5 [facility] Comment on above: Performed By: #### T SH, LIPID, CMP, URIC, T7, CRP #### [facility] [address] [place] [address] Dr. Walker Gabriel LYMPH # 2.6 103/ul Normal 1.2-3.8 [facility] Comment on above: Performed By: #### T SH, LIPID, CMP, URIC, T7, CRP #### [facility] [address] [place] [address] Dr. Walker Gabriel Lymphocytes/100 WBC (Bld) 32.4 % Normal 20.5-60.0 [facility] Comment on above: Performed By: #### T SH, LIPID, CMP, URIC, T7, CRP #### [facility] [address] [place] [address] Dr. Walker Gabriel MANUAL DIFF REQ NO Normal [facility] Comment on above: Performed By: #### T SH, LIPID, CMP, URIC, T7, CRP #### [facility] [address] [place] [address] Dr. Walker Gabriel MCH (RBC) [Entitic mass] 28.8 pg Normal 26.7-34.0 [facility] Comment on above: Performed By: #### T SH, LIPID, CMP, URIC, T7, CRP #### [facility] [address] [place] [address] Dr. Walker Gabriel MCHC (RBC) [Mass/Vol] 32.9 g/dL Normal 29.9-35.2 [facility] Comment on above: Performed By: #### T SH, LIPID, CMP, URIC, T7, CRP #### [facility] [address] [place] [address] Dr. Walker Gabriel MCV (RBC) [Entitic vol] 87.5 fL Normal 81.0-99.0 [facility] Comment on above: Performed By: #### T SH, LIPID, CMP, URIC, T7, CRP #### [facility] [address] [place] [address] Dr. Walker Gabriel MONO # 0.4 103/ul Normal 0.3-0.8 [facility] Comment on above: Performed By: #### T SH, LIPID, CMP, URIC, T7, CRP #### [facility] [address] [place] [address] Dr. Walker Gabriel Monocytes/100 WBC (Bld) 5.0 % Normal 1.7-12.0 [facility] Comment on above: Performed By: #### T SH, LIPID, CMP, URIC, T7, CRP #### [facility] [address] [address] [address] Walker Gabriel NEUT # 5.0 103/ul Normal 1.4-6.5 [place] Comment on above: Performed By: #### T SH, LIPID, CMP, URIC, T7, CRP #### [facility] [address] [place] [address] Dr. Walker Gabriel Neutrophils/100 WBC (Bld) 61.8 % Normal 43.0-75.0 [facility] Comment on above: Performed By: #### T SH, LIPID, CMP, URIC, T7, CRP #### [facility] [address] [place] [address] Dr. Walker Gabriel Platelet mean volume (Bld) [Entitic vol] 8.4 fL Critically low 9.5-13.5 [place] Comment on above: Performed By: #### T SH, LIPID, CMP, URIC, T7, CRP #### [facility] [address] [place] [address] Dr. Walker Gabriel PLT 347 103/ul Normal 150-450 [facility] Comment on above: Performed By: #### T SH, LIPID, CMP, URIC, T7, CRP #### [facility] [address] [place] [address] Dr. Walker Gabriel RBC 4.73 106/ul Normal 4.20-5.40 [facility] Comment on above: Performed By: #### T SH, LIPID, CMP, URIC, T7, CRP #### [facility] [address] [place] [address] Dr. Walker Gabriel WBC 8.1 103/ul Normal 4.0-11.0 [facility] Comment on above: Performed By: #### T SH, LIPID, CMP, URIC, T7, CRP #### [facility] [address] [place] [address] Dr. Walker Gabriel CRPon 09-06-2021 CRP 0.7 mg/dL Normal <=1.0 [facility] Comment on above: Performed By: #### T SH, LIPID, CMP, URIC, T7, CRP #### [facility] [address] [address] [address] Walker Gabriel PROF CHEM 8 (BAS METB)on Anion gap [Moles/Vol] 10.2 mmol/L Normal [place] Comment on above: Performed By: #### T SH, LIPID, CMP, URIC, T7, CRP #### [facility] [address] [address] [address] Walker Gabriel Calcium [Mass/Vol] 9.0 mg/dL Normal 8.4-10.2 [facility] Comment on above: Performed By: #### T SH, LIPID, CMP, URIC, T7, CRP #### [facility] [address] [address] [address] Walker Gabriel Chloride [Moles/Vol] 99 mmol/L Normal 98-107 [facility] Comment on above: Performed By: #### T SH, LIPID, CMP, URIC, T7, CRP #### [facility] [address] [address] [address] Walker Gabriel CO2 [Moles/Vol] 26.5 mmol/L Normal 22.0-30.0 [facility] Comment on above: Performed By: #### T SH, LIPID, CMP, URIC, T7, CRP #### [facility] [address] [address] [address] Walker Gabriel Creatinine [Mass/Vol] 1.19 mg/dL Critically high 0.52-1.04 [place] Comment on above: Performed By: #### T SH, LIPID, CMP, URIC, T7, CRP #### [facility] [address] [address] [address] Walker Gabriel EGFR-AF BERMUDIAN >60 Normal >=60 [facility] Comment on above: Performed By: #### T SH, LIPID, CMP, URIC, T7, CRP #### [facility] [address] [address] [address] Walker Gabriel EGFR-NON AF BERMUDIAN 51 mL/min/1.73m2 Critically low >=60 [facility] Comment on above: Performed By: #### T SH, LIPID, CMP, URIC, T7, CRP #### [facility] [address] [address] [address] Walker Gabriel Glucose [Mass/Vol] 105 mg/dL Normal 74-106 [facility] Comment on above: Performed By: #### T SH, LIPID, CMP, URIC, T7, CRP #### [facility] [address] [place] [address] Dr. Walker Gabriel Potassium [Moles/Vol] 3.7 mmol/L Normal 3.4-5.0 [place] Comment on above: Performed By: #### T SH, LIPID, CMP, URIC, T7, CRP #### [facility] [address] [place] [address] Dr. Walker Gabriel Sodium [Moles/Vol] 132 mmol/L Critically low 137-145 [facility] Comment on above: Performed By: #### T SH, LIPID, CMP, URIC, T7, CRP #### [facility] [address] [place] [address] Dr. Walker Gabriel Urea nitrogen [Mass/Vol] 15.0 mg/dL Normal 7.0-17.0 [place] Comment on above: Performed By: #### T SH, LIPID, CMP, URIC, T7, CRP #### [facility] [address] [place] [address] Dr. Walker Gabriel Urea nitrogen/Creatinine [Mass ratio] 12.6 mg/mg Normal [place] Comment on above: Performed By: #### T SH, LIPID, CMP, URIC, T7, CRP #### [facility] [address] [place] [address] Dr. Walker Gabriel SED RATE [facility] 2021 SED RATE 49 mm/hr Critically high <=20 [facility] Comment on above: Performed By: #### T SH, LIPID, CMP, URIC, T7, CRP #### [facility] [address] [place] [address] Dr. Walkre Gabriel XR CHEST 2 Von 09-06-2021 XR [...] by: CANDICE PONCE Date: 2021-09-06 20:51 Normal [place] [facility] April 09, 2021 Smiley Urias, [address] [place] [address] [place] [address] Re: NABILA JEWELL Date of : 1985 Thank you for your referral of Nabila Jewell who was seen on consultation for abscess x 2. I have enclosed my consultation note for your review. Sincerely, Edson Davalos MD General Surgery Normal [facility] Facesheeton 04-08-2021 Facesheet [id number] 0CD:127 Normal [facility] Ambulatory Clinical Summaryo n 04-03-2021 Ambulatory Clinical Summary {[id number] }[id number] Normal [facility] Physician Referralon 021 Physician Referral [id number] 0CD:127 Normal [facility] SYPHILIS SCREENING WITH REFL EXon 03-06-2021 SYPHILIS TOTAL AB Non-Reactive Normal NONREACTIVE [facility] Comment on above: Result Comment: No s ignificant level of Treponema pallidum antibody detected. Repeat testing in 2 to 4 weeks may be considered if early infection or incubating syphilis infection is suspected. Performed By: #### S YPHR #### [facility] [address] [place] [address] BILIRUBIN,DIRECTon Bilirubin.indirect [Mass/Vol] 0.1 mg/dL Normal 0.0 - 0.3 [facility] Comment on above: Performed By: #### D BILI #### [address] [id number] CBC AND DIFFERENTIALon 03-05 % AUTOMATED IMMATURE GRAN 0.3 % Normal 0.0 - 0.9 [facility] Comment on above: Result Comment: Cassia ture Granulocyte Count (IG) includes promyelocytes, myelocytes and metamyelocytes but does not include bands. Percent differential counts (%) should be interpreted in the context of the absolute cell counts (cells/L). Performed By: #### C BCDF #### [address] [id number] Basophils (Bld) [#/Vol] 0.02 10*3/uL Normal 0.00 - 0.10 [facility] Comment on above: Performed By: #### C BCDF #### [address] [id number] Basophils/100 WBC (Bld) 0.3 % Normal 0.0 - 2.0 [facility] Comment on above: Performed By: #### C BCDF #### [address] [id number] Eosinophils (Bld) [#/Vol] 0.04 10*3/uL Normal 0.00 - 0.70 [facility] Comment on above: Performed By: #### C BCDF #### [address] [id number] Eosinophils/100 WBC (Bld) 0.6 % Normal 0.0 - 6.0 [facility] Comment on above: Performed By: #### C BCDF #### [address] [id number] Erythrocyte distribution width (RBC) [Ratio] 12.2 % Normal 11.5 - 14.5 [facility] Comment on above: Performed By: #### C BCDF #### [address] [id number] Hematocrit (Bld) [Volume fraction] 38.3 % Normal 36.0 - 46.0 [facility] Comment on above: Performed By: #### C BCDF #### [address] [id number] Hemoglobin (Bld) [Mass/Vol] 12.0 g/dL Normal 12.0 - 16.0 [facility] Comment on above: Performed By: #### C BCDF #### [address] [id number] Lymphocytes (Bld) [#/Vol] 2.33 10*3/uL Normal 1.20 - 4.80 [facility] Comment on above: Performed By: #### C BCDF #### [address] [id number] Lymphocytes/100 WBC (Bld) 35.6 % Normal 13.0 - 44.0 [facility] Comment on above: Performed By: #### C BCDF #### [address] [id number] MCHC (RBC) [Mass/Vol] 31.3 g/dL Low 32.0 - 36.0 [facility] Comment on above: Performed By: #### C BCDF #### [address] [id number] MCV (RBC) [Entitic vol] 93 fL Normal 80 - 100 [facility] Comment on above: Performed By: #### C BCDF #### [address] [id number] Monocytes (Bld) [#/Vol] 0.34 10*3/uL Normal 0.10 - 1.00 [facility] Comment on above: Performed By: #### C BCDF #### [address] [id number] Monocytes/100 WBC (Bld) 5.2 % Normal 2.0 - 10.0 [facility] Comment on above: Performed By: #### C BCDF #### [address] [id number] Neutrophils (Bld) [#/Vol] 3.80 10*3/uL Normal 1.20 - 7.70 [facility] Comment on above: Performed By: #### C BCDF #### [address] [id number] Neutrophils/100 WBC (Bld) 58.0 % Normal 40.0 - 80.0 [facility] Comment on above: Performed By: #### C BCDF #### [address] [id number] Platelets (Bld) [#/Vol] 221 10*3/uL Normal 150 - 450 [facility] Comment on above: Performed By: #### C BCDF #### [address] [id number] RBC 4.13 x10E12/L Normal 4.00 - 5.20 [facility] Comment on above: Performed By: #### C BCDF #### [address] [id number] WBC (Bld) [#/Vol] 6.6 10*3/uL Normal 4.4 - 11.3 [facility] Comment on above: Performed By: #### C BCDF #### [address] [id number] COMPREHENSIVE PANELon 2020 Albumin [Mass/Vol] 3.6 g/dL Normal 3.4 - 5.0 [facility] Comment on above: Performed By: #### C MP #### [address] [id number] ALP [Catalytic activity/Vol] 77 U/L Normal 33 - 110 [facility] Comment on above: Performed By: #### C MP #### [address] [id number] ALT [Catalytic activity/Vol] 20 U/L Normal 7 - 45 [facility] Comment on above: Result Comment: Cony ents treated with Sulfasalazine may generate falsely decreased results for ALT. Performed By: #### C MP #### [address] [id number] Anion gap [Moles/Vol] 10 mmol/L Normal 10 - 20 [facility] Comment on above: Performed By: #### C MP #### [address] [id number] AST [Catalytic activity/Vol] 24 U/L Normal 9 - 39 [facility] Comment on above: Performed By: #### C MP #### [address] [id number] Bilirubin [Mass/Vol] 0.5 mg/dL Normal 0.0 - 1.2 [facility] Comment on above: Performed By: #### C MP #### [address] [id number] Calcium [Mass/Vol] 9.2 mg/dL Normal 8.6 - 10.3 [facility] Comment on above: Performed By: #### C MP #### [address] [id number] Chloride [Moles/Vol] 101 mmol/L Normal 98 - 107 [facility] Comment on above: Performed By: #### C MP #### [address] [id number] Creatinine [Mass/Vol] 0.85 mg/dL Normal 0.50 - 1.05 [facility] Comment on above: Performed By: #### C MP #### [address] [id number] GFR- AM. >60 Normal >60 [facility] Comment on above: Result Comment: CALC ULATIONS OF ESTIMATED GFR ARE PERFORMED USING THE MDRD STUDY EQUATION FOR THE IDMS-TRACEABLE CREATININE METHODS. CLIN CHEM 2007;53:766-72 Performed By: #### C MP #### [address] [id number] GFR-NON AM. >60 Normal >60 [facility] Comment on above: Performed By: #### C MP #### [address] [id number] Glucose [Mass/Vol] 75 mg/dL Normal 74 - 99 [facility] Comment on above: Performed By: #### C MP #### [address] [id number] HCO3 (Bld) [Moles/Vol] 30 mmol/L Normal 21 - 32 [facility] Comment on above: Performed By: #### C MP #### [address] [id number] Potassium [Moles/Vol] 4.1 mmol/L Normal 3.5 - 5.3 [facility] Comment on above: Performed By: #### C MP #### [address] [id number] Protein [Mass/Vol] 7.0 g/dL Normal 6.4 - 8.2 [facility] Comment on above: Performed By: #### C MP #### [address] [id number] Sodium [Moles/Vol] 137 mmol/L Normal 136 - 145 [facility] Comment on above: Performed By: #### C MP #### [address] [id number] Urea nitrogen [Mass/Vol] 21 mg/dL Normal 6 - 23 [facility] Comment on above: Performed By: #### C MP #### [address] [id number] HEPATITIS PANEL,ACUTE (HCFA) on 03-05-2021 HEPATITIS B CORE AB,IGM Non-Reactive Normal NONREACTIVE [facility] Comment on above: Result Comment: Resu lts from patients taking biotin supplements or receiving high-dose biotin therapy should be interpreted with caution due to possible interference with this test. Providers may contact their local laboratory for further information. Performed By: #### H EPA2 #### [facility] [address] [place] [address] HEPATITIS C AB Non-Reactive Normal NONREACTIVE [facility] Comment on above: Result Comment: Resu lts from patients taking biotin supplements or receiving high-dose biotin therapy should be interpreted with caution due to possible interference with this test. Providers may contact their local laboratory for further information. Performed By: #### H EPA2 #### [facility] [address] [place] [id number] HEPATITIS A AB-IGM Non-Reactive Normal NONREACTIVE [facility] Comment on above: Result Comment: Biot in interference may cause falsely decreased results. Patients taking a Biotin dose of up to 5 mg/day should refrain from taking Biotin for 24 hours before sample collection. Providers may contact their local laboratory for further information. Performed By: #### H EPA2 #### [facility] [address] [place] [id number] HEP.B SURFACE AG Non-Reactive Normal NONREACTIVE [facility] Comment on above: Result Comment: Biot in interference may cause falsely decreased results. Patients taking a Biotin dose of up to 5 mg/day should refrain from taking Biotin for 24 hours before sample collection. Providers may contact their local laboratory for further information. Performed By: #### H EPA2 #### [facility] [address] [place] [id number] HIV 1/2 ANTIGEN/ANTIBODY SCR EEN WITH REFLEX TO CONFIRMATIONon 03-05-2021 HIV 1/2 AG/AB SCREEN Non-Reactive Normal NONREACTIVE [facility] Comment on above: Result Comment: HIV Ag/Ab [...] load). Performed By: #### H IV #### [facility] [address] [place] [address] SYPHILIS SCREENING WITH REFL EXon 03-05-2021 Lab Specimen Source Normal [facility] Comment on above: Performed By: #### S YPHR #### [facility] [address] [place] [address] Performed By: #### H EPA2 #### [facility] [address] [place] [address] Performed By: #### H IV #### [facility] [address] [place] [address] HEPATITIS PANEL,ACUTE (HCFA) on 02-29-2020 HEPATITIS A AB-IGM NONREACTIVE Normal NONREACTIVE [facility] Comment on above: Result Comment: Biot in interference may cause falsely decreased results. Patients taking a Biotin dose of up to 5 mg/day should refrain from taking Biotin for 24 hours before sample collection. Providers may contact their local laboratory for further information. Performed By: #### H EPA2 #### [facility] [address] [place] [address] HEPATITIS C AB NONREACTIVE Normal NONREACTIVE [facility] Comment on above: Result Comment: Resu lts from patients taking biotin supplements or receiving high-dose biotin therapy should be interpreted with caution due to possible interference with this test. Providers may contact their local laboratory for further information. Performed By: #### H EPA2 #### [facility] [address] [place] [address] HEPATITIS B CORE AB,IGM NONREACTIVE Normal NONREACTIVE [facility] Comment on above: Result Comment: Resu lts from patients taking biotin supplements or receiving high-dose biotin therapy should be interpreted with caution due to possible interference with this test. Providers may contact their local laboratory for further information. Performed By: #### H EPA2 #### [facility] [address] [place] [address] HEP.B SURFACE AG NONREACTIVE Normal NONREACTIVE [facility] Comment on above: Result Comment: Biot in interference may cause falsely decreased results. Patients taking a Biotin dose of up to 5 mg/day should refrain from taking Biotin for 24 hours before sample collection. Providers may contact their local laboratory for further information. Performed By: #### H EPA2 #### [facility] [address] [place] [id number] HIV ANTIGEN/ANTIBODY SCREENo n 02-29-2020 HIV AG/AB SCREEN NONREACTIVE Normal NONREACTIVE [facility] Comment on above: Result Comment: HIV Ag/Ab screen is performed using the Siemens Boundary HIV Ag/Ab Combo assay which detects the presence of HIV p24 antigen as well as antibodies to HIV-1 (Group M and O) and HIV-2. Performed By: #### H IV #### [facility] [address] [place] [address] SYPHILIS SCREENING WITH REFL EXon 02-29-2020 SYPHILIS TOTAL AB NONREACTIVE Normal NONREACTIVE [facility] Comment on above: Result Comment: No s ignificant level of Treponema pallidum antibody detected. Repeat testing in 2 to 4 weeks may be considered if early infection or incubating syphilis infection is suspected. Performed By: #### S YPHR #### [facility] [address] [place] [address] BILIRUBIN,DIRECTon 0 Bilirubin.direct [Mass/Vol] 0.1 mg/dL Normal 0.0 - 0.3 [facility] Comment on above: Performed By: #### D BILI #### [address] [id number] CBCon 02-28-2020 Erythrocyte distribution width (RBC) [Ratio] 12.6 % Normal 11.5 - 14.5 [facility] Comment on above: Performed By: #### C BC #### [address] [id number] Hematocrit (Bld) [Volume fraction] 38.4 % Normal 36.0 - 46.0 [facility] Comment on above: Performed By: #### C BC #### [address] [id number] Hemoglobin (Bld) [Mass/Vol] 12.5 g/dL Normal 12.0 - 16.0 [facility] Comment on above: Performed By: #### C BC #### [address] [id number] MCHC (RBC) [Mass/Vol] 32.6 g/dL Normal 32.0 - 36.0 [facility] Comment on above: Performed By: #### C BC #### [address] [id number] MCV (RBC) [Entitic vol] 88 fL Normal 80 - 100 [facility] Comment on above: Performed By: #### C BC #### [address] [id number] Platelets (Bld) [#/Vol] 350 10*3/uL Normal 150 - 450 [facility] Comment on above: Performed By: #### C BC #### [address] [id number] RBC (Bld) [#/Vol] 4.34 x10E12/L Normal 4.00 - 5.20 [facility] Comment on above: Performed By: #### C BC #### [address] [id number] WBC (Bld) [#/Vol] 5.6 10*3/uL Normal 4.4 - 11.3 [facility] Comment on above: Performed By: #### C BC #### [address] [id number] COMPREHENSIVE PANELon 2019 Albumin [Mass/Vol] 4.1 g/dL Normal 3.4 - 5.0 [facility] Comment on above: Performed By: #### C MP #### [address] [id number] ALP [Catalytic activity/Vol] 105 U/L Normal 33 - 110 [facility] Comment on above: Performed By: #### C MP #### [address] [id number] ALT [Catalytic activity/Vol] 24 U/L Normal 7 - 45 [facility] Comment on above: Result Comment: Cony ents treated with Sulfasalazine may generate falsely decreased results for ALT. Performed By: #### C MP #### [address] [id number] Anion gap [Moles/Vol] 10 mmol/L Normal 10 - 20 [facility] Comment on above: Performed By: #### C MP #### [address] [id number] AST [Catalytic activity/Vol] 22 U/L Normal 9 - 39 [facility] Comment on above: Performed By: #### C MP #### [address] [id number] Bilirubin [Mass/Vol] 0.4 mg/dL Normal 0.0 - 1.2 [facility] Comment on above: Performed By: #### C MP #### [address] [id number] Calcium [Mass/Vol] 9.1 mg/dL Normal 8.6 - 10.3 [facility] Comment on above: Performed By: #### C MP #### [address] [id number] Chloride [Moles/Vol] 101 mmol/L Normal 98 - 107 [facility] Comment on above: Performed By: #### C MP #### [address] [id number] Creatinine [Mass/Vol] 0.79 mg/dL Normal 0.50 - 1.05 [facility] Comment on above: Performed By: #### C MP #### [address] [id number] GFR- AM. >60 Normal >60 [facility] Comment on above: Result Comment: CALC ULATIONS OF ESTIMATED GFR ARE PERFORMED USING THE MDRD STUDY EQUATION FOR THE IDMS-TRACEABLE CREATININE METHODS. CLIN CHEM 2007;53:766-72 Performed By: #### C MP #### [address] [id number] GFR-NON AM. >60 Normal >60 [facility] Comment on above: Performed By: #### C MP #### [address] [id number] Glucose [Mass/Vol] 90 mg/dL Normal 74 - 99 [facility] Comment on above: Performed By: #### C MP #### [address] [id number] HCO3 (Bld) [Moles/Vol] 28 mmol/L Normal 21 - 32 [facility] Comment on above: Performed By: #### C MP #### [address] [id number] Potassium [Moles/Vol] 4.4 mmol/L Normal 3.5 - 5.3 [facility] Comment on above: Performed By: #### C MP #### [address] [id number] Protein [Mass/Vol] 8.1 g/dL Normal 6.4 - 8.2 [facility] Comment on above: Performed By: #### C MP #### [address] [id number] Sodium [Moles/Vol] 135 mmol/L Low 136 - 145 [facility] Comment on above: Performed By: #### C MP #### [address] [id number] Urea nitrogen [Mass/Vol] 21 mg/dL Normal 6 - 23 [facility] Comment on above: Performed By: #### C MP #### [address] [id number] SYPHILIS SCREENING WITH REFL EXon 02-28-2020 Lab Specimen Source Normal [facility] Comment on above: Performed By: #### S YPHR #### [facility] [address] [place] [address] Performed By: #### H IV #### [facility] [address] [place] [address] Performed By: #### H EPA2 #### [facility] [address] [place] [address] APTTon 08-13-2017 aPTT 27.9 s Normal 23.2-34.4 [facility] Comment on above: Result Comment: Perf ormed at [address] [place] [address] [phone] Performed By: #### C DP, PT, PTT, BNP, BMP, TROPI ####[address] [place] [address] Basic Metabolic Profon 08-13 (cont.) Normal [facility] Comment on above: Result Comment: Aver age GFR for 30-39 years old: 107 mL/min/1.73sq mChronic Kidney Disease: <60 mL/min/1.73sq mKidney failure: <15 mL/min/1.73sq meGFR calculated using average adult body mass. Additional eGFR calculator available at:http://www.[employer]/multiple_crcl_2012.htm Performed By: #### C DP, PT, PTT, BNP, BMP, TROPI ####[address] [place] [address] Anion gap 11 mmol/L Normal 9-17 [facility] Comment on above: Performed By: #### C DP, PT, PTT, BNP, BMP, TROPI ####[address] [place] [address] BUN/CRE Ratio 21 High 9-20 [facility] Comment on above: Performed By: #### C DP, PT, PTT, BNP, BMP, TROPI ####[address] [place] [address] Calcium 9.6 mg/dL Normal 8.6-10.4 [facility] Comment on above: Performed By: #### C DP, PT, PTT, BNP, BMP, TROPI ####[address] [place] [address] Chloride 96 mmol/L Low 98-107 [facility] Comment on above: Performed By: #### C DP, PT, PTT, BNP, BMP, TROPI ####[address] [place] [address] CO2 31 mmol/L Normal 20-31 [facility] Comment on above: Performed By: #### C DP, PT, PTT, BNP, BMP, TROPI ####[address] [place] [address] Creatinine 0.73 mg/dL Normal 0.50-0.90 [facility] Comment on above: Performed By: #### C DP, PT, PTT, BNP, BMP, TROPI ####[address] [place] [address] eGFR (non-black) mL/min/{1.73_m2} Normal >60 [facility] Comment on above: Performed By: #### C DP, PT, PTT, BNP, BMP, TROPI ####[address] [place] [address] Glucose mass conc 101 mg/dL High 70-99 [facility] Comment on above: Performed By: #### C DP, PT, PTT, BNP, BMP, TROPI ####[address] [place] [address] Potassium molar conc 3.2 mmol/L Low 3.7-5.3 [facility] Comment on above: Performed By: #### C DP, PT, PTT, BNP, BMP, TROPI ####[address] [place] [address] Sodium 138 mmol/L Normal 135-144 [facility] Comment on above: Performed By: #### C DP, PT, PTT, BNP, BMP, TROPI ####[address] [place] [address] Staging: Normal [facility] Comment on above: Result Comment: Stag e 1: Some kidney damage normal GFRStage 2: Mild kidney damage GFR 60-89Stage 3: Moderate kidney damage GFR 30-59Stage 4: Severe kidney damage GFR 15-29Stage 5: Severe kidney damage GFR <15ESRD - chronic treatment by dialysis or transplantPerformed at [address] [place] [address] Performed By: #### C DP, PT, PTT, BNP, BMP, TROPI ####[address] [place] [address] Urea nitrogen 15 mg/dL Normal 6-20 [facility] Comment on above: Performed By: #### C DP, PT, PTT, BNP, BMP, TROPI ####[address] [place] [address] Brain Natri. Peptideon 08-13 BNP pg/mL Normal <300 [facility] Comment on above: Result Comment: Pro- BNP results cannot be compared to BNP results. Performed By: #### C DP, PT, PTT, BNP, BMP, TROPI ####[address] [place] [address] BNP Normal [facility] Comment on above: Result Comment: Pro- BNP Reference Range:Rule Out: <300Grey Zone: Age <50 300-450 Age 50-75 300-900 Age >75 300-1800Usually represents mild to moderate HF but other cardiopulmonary causes cannot be ruled out.Rule In: Age <50 >450 Age 50-75 >900 Age >75 >1800Performed at [address] [place] [address] Performed By: #### C DP, PT, PTT, BNP, BMP, TROPI ####[address] [place] [address] CBC with Diffon 08-13-2017 Abs. Basophil 0.00 k/uL Normal 0.0-0.2 [facility] Comment on above: Result Comment: Perf ormed at [address] [place] [address] Performed By: #### C DP, PT, PTT, BNP, BMP, TROPI ####[address] [place] [address] Abs.Neutrophil (Seg) 4.50 k/uL Normal 1.8-7.7 [facility] Comment on above: Performed By: #### C DP, PT, PTT, BNP, BMP, TROPI ####[address] , [facility]83 Basophils/100 WBC Auto (Bld) 0 % Normal 0-2 [facility] Comment on above: Performed By: #### C DP, PT, PTT, BNP, BMP, TROPI ####[address] [place] [address] Eosinophils 0.20 10*3/uL Normal 0.0-0.4 [facility] Comment on above: Performed By: #### C DP, PT, PTT, BNP, BMP, TROPI ####[address] , [facility] Eosinophils/100 leukocytes 2 % Normal 0-8 [facility] Comment on above: Performed By: #### C DP, PT, PTT, BNP, BMP, TROPI ####[address] , [facility]83 Erythrocyte distribution width Auto Ratio (RBC) 15.0 % Normal 12.1-15.2 [facility] Comment on above: Performed By: #### C DP, PT, PTT, BNP, BMP, TROPI ####[address] , [facility]83 Erythrocytes (RBC) 4.75 10*6/uL Normal 4.0-5.2 [facility] Comment on above: Performed By: #### C DP, PT, PTT, BNP, BMP, TROPI ####[address] , [facility]83 Hematocrit (HCT) 41.0 % Normal 36-46 [facility] Comment on above: Performed By: #### C DP, PT, PTT, BNP, BMP, TROPI ####[address] , [facility]83 Hemoglobin mass conc (Bld) 13.7 g/dL Normal 12.0-16.0 [facility] Comment on above: Performed By: #### C DP, PT, PTT, BNP, BMP, TROPI ####[address] [place] [address] Lymphocytes 2.60 10*3/uL Normal 1.0-4.8 [facility] Comment on above: Performed By: #### C DP, PT, PTT, BNP, BMP, TROPI ####[address] , [facility]83 Lymphocytes/100 leukocytes 34 % Normal 24-44 [facility] Comment on above: Performed By: #### C DP, PT, PTT, BNP, BMP, TROPI ####[address] , [facility]83 MCH 28.8 pg Normal 26-34 [facility] Comment on above: Performed By: #### C DP, PT, PTT, BNP, BMP, TROPI ####[address] , [facility]83 MCHC mass conc (RBC) 33.4 g/dL Normal 31-37 [facility] Comment on above: Performed By: #### C DP, PT, PTT, BNP, BMP, TROPI ####[address] , [facility]83 MCV 86.3 fL Normal 80-100 [facility] Comment on above: Performed By: #### C DP, PT, PTT, BNP, BMP, TROPI ####[address] , [facility]83 Monocytes 0.40 10*3/uL Normal 0.0-1.0 [facility] Comment on above: Performed By: #### C DP, PT, PTT, BNP, BMP, TROPI ####[address] , [facility]83 Monocytes/100 leukocytes 6 % Normal 0-12 [facility] Comment on above: Performed By: #### C DP, PT, PTT, BNP, BMP, TROPI ####[address] [place] [address] Neutrophil (Seg) 58 % Normal 36-66 [facility] Comment on above: Performed By: #### C DP, PT, PTT, BNP, BMP, TROPI ####[address] [place] [address] Platelet mean volume (PMV) 6.7 fL Normal 6.0-12.0 [facility] Comment on above: Performed By: #### C DP, PT, PTT, BNP, BMP, TROPI ####[address] [place] [address] Platelets 322 10*3/uL Normal 140-450 [facility] Comment on above: Performed By: #### C DP, PT, PTT, BNP, BMP, TROPI ####[address] [place] [address] WBC (Leukocytes) 7.7 10*3/uL Normal 3.5-11.0 [facility] Comment on above: Performed By: #### C DP, PT, PTT, BNP, BMP, TROPI ####[address] [place] [address] Auto Diff Performed NOT REPORTED Normal [facility] Comment on above: Performed By: #### C DP, PT, PTT, BNP, BMP, TROPI ####[address] [place] [address] Erythrocyte morphology NOT REPORTED Normal [facility] Comment on above: Performed By: #### C DP, PT, PTT, BNP, BMP, TROPI ####[address] [place] [address] Erythrocytes (RBC) NOT REPORTED Normal [facility] Comment on above: Performed By: #### C DP, PT, PTT, BNP, BMP, TROPI ####[address] [place] [address] Granulocytes/100 WBC (Bld) NOT REPORTED Normal 0.00-0.30 [facility] Comment on above: Performed By: #### C DP, PT, PTT, BNP, BMP, TROPI ####[address] [place] [address] Immature granulocytes #/vol (Bld) NOT REPORTED Normal 0 [facility] Comment on above: Performed By: #### C DP, PT, PTT, BNP, BMP, TROPI ####[address] [place] [address] Platelets NOT REPORTED Normal [facility] Comment on above: Performed By: #### C DP, PT, PTT, BNP, BMP, TROPI ####[address] [place] [address] WBC Morphology NOT REPORTED Normal [facility] Comment on above: Performed By: #### C DP, PT, PTT, BNP, BMP, TROPI ####[address] [place] [address] ED Provider Noteon 8 HIM IP Note OR Tassel Clipper Normal [facility] PTon 08-13-2017 INR Coag RelTime (PPP) 0.9 {INR} Normal 0.9-1.2 [facility] Comment on above: Result Comment: Perf ormed at [address] [place] [address] Performed By: #### C DP, PT, PTT, BNP, BMP, TROPI ####[address] [place] [address] Prothrombin time (PT) Coag time (PPP) 9.7 s Normal 9.7-12.2 [facility] Comment on above: Performed By: #### C DP, PT, PTT, BNP, BMP, TROPI ####[address] [place] [address] Troponinon 08-13-2017 Troponin I.cardiac mass conc Normal [facility] Comment on above: Result Comment: Refe rence Range: <0.03 Within reference range. 0.03-0.09 Possible myocardial damage.Repeat at appropriate intervals to rule out chronic elevation. >= 0.10 Indicative of myocardial damage.Patients with high levels of Biotin oral intake (i.e >5mg/day) may have falsely decreased Troponin T levels. Samples collected within 8 hours of biotin intake may require additional information for diagnosis.Performed at [address] [place] [address] Performed By: #### C DP, PT, PTT, BNP, BMP, TROPI ####[address] [place] [address] Troponin T.cardiac mass conc ug/L Normal <0.03 [facility] Comment on above: Result Comment: Trop onin T results cannot be compared to Troponin-I results. Performed By: #### C DP, PT, PTT, BNP, BMP, TROPI ####[address] [place] [address] XR CHEST PORTABLEon 08-13-19 18 XR CHEST [...] by:RACHEL Haskinsigned by:Sruthi Mo MD08/13/17inal result Normal [facility] Vital Signs Date Time Vital Sign Value Performing Clinician Facility 02-03-2022 10:50-0400 Body height 154.9 cm Chas Romero DO Work Phone: [facility] 02-03-2022 10:50-0400 Body weight 122.7 kg Chasmina Romero DO Work Phone: [facility] 02-03-2022 10:50-0400 Diastolic blood pressure 84 mm[Hg] Chas Romero DO Work Phone: [facility] 02-03-2022 10:50-0400 Heart rate 66 /min Chas Romero DO Work Phone: [facility] 02-03-2022 10:50-0400 SaO2% (BldA) [Mass fraction] 98 % Chas Romero DO Work Phone: [facility] 02-03-2022 10:50-0400 Systolic blood pressure 117 mm[Hg] Chas Romero DO Work Phone: [facility] 01-01-2022 11:45-0400 Body height 155.57 cm Rolando Turner Other [facility] Other 01-01-2022 11:45-0400 Body mass index (BMI) [Ratio] 42.12 kg/m2 Rolando Miracle Other [employer] Other 01-01-2022 11:45-0400 Body weight 101.97 kg Rolando Miracle Other [employer] Other 11-13-2021 10:45-0400 Body height 155.57 cm Rolando Miracle Other [employer] Other 11-13-2021 10:45-0400 Body mass index (BMI) [Ratio] 42.12 kg/m2 Rolando Miracle Other [employer] Other 11-13-2021 10:45-0400 Body weight 101.97 kg Rolando Miracle Other [employer] Other 11-12-2021 13:49-0400 Body height 154.9 cm Chas Romero DO Work Phone: [facility] 11-12-2021 13:49-0400 Body weight 118.62 kg Chas Romero DO Work Phone: [facility] 11-12-2021 13:49-0400 Diastolic blood pressure 82 mm[Hg] Chas Romero DO Work Phone: [facility] 11-12-2021 13:49-0400 Heart rate 69 /min Chas Romero DO Work Phone: [facility] 11-12-2021 13:49-0400 SaO2% (BldA) [Mass fraction] 100 % Chas Romero DO Work Phone: [facility] 11-12-2021 13:49-0400 Systolic blood pressure 120 mm[Hg] Chas Romero DO Work Phone: [facility] 09-18-2021 11:15-0400 Body height 155.57 cm Rolando Turner Other [employer] Other 09-18-2021 11:15-0400 Body mass index (BMI) [Ratio] 42.12 kg/m2 Rolando Turner Other [employer] Other 09-18-2021 11:15-0400 Body weight 101.97 kg Rolando Turner Other [employer] Other 07-24-2021 11:15-0500 Body height 155.57 cm Rolando Turner Other [employer] Other 07-24-2021 11:15-0500 Body mass index (BMI) [Ratio] 47.03 kg/m2 Rolando Turner Other [employer] Other 07-24-2021 11:15-0500 Body weight 113.85 kg Rolando Turner Other [employer] Other 06-12-2021 11:00-0500 Body height 155.57 cm Rolando Miracle Other [employer] Other 06-12-2021 11:00-0500 Body mass index (BMI) [Ratio] 46.85 kg/m2 Rolando Miracle Other [facility] Other 06-12-2021 11:00-0500 Body weight 113.4 kg Rolando Miracle Other [facility] Other 05-15-2021 14:00-0500 Body height 155.57 cm Rolando Miracle Other [employer] Other 05-15-2021 14:00-0500 Body mass index (BMI) [Ratio] 42.12 kg/m2 Rolando Miracle Other [facility] Other 05-15-2021 14:00-0500 Body weight 101.97 kg Rolando Miracle Other [facility] Other 04-17-2021 10:30-0400 Body height 155.57 cm Rolando Miracle Other [employer] Other 04-17-2021 10:30-0400 Body mass index (BMI) [Ratio] 42.12 kg/m2 Rolando Miracle Other [employer] Other 04-17-2021 10:30-0400 Body weight 101.97 kg Rolando Miracle Other [employer] Other Encounters Encounter Date Encounter Type Care Provider Facility Start: 06-15-2023 End: 06-16-2023 ambulatory Fabián Arcehr MD [facility] Start: 04-27-2023 End: 04-28-2023 ambulatory Fabián Archer MD [facility] Start: 04-17-2023 ambulatory Luiz Garsia acility:[facility] Start: 03-04-2023 ambulatory PASCUAL [facility] Start: 02-23-2023 ambulatory [facility] Start: 01-12-2023 ambulatory [facility] Start: 01-01-2023 End: 01-01-2023 ambulatory [facility] Start: 12-01-2022 ambulatory PASCUAL [facility] Start: 09-29-2022 ambulatory PASCUAL [facility] Start: 09-15-2022 ambulatory [facility] Start: 09-15-2022 Encounter for other preprocedural examination [facility] Start: 08-22-2022 End: 08-23-[address] SMILEY URIAS . Facility:[facility] Start: 08-21-2022 ambulatory CAROLE PONCE [facility] Start: 08-06-2022 ambulatory PARRISH MCDONOUGH [facility] Start: 07-02-2022 ambulatory PASCUAL [facility] Start: 05-15-2022 End: 05-15-[address] [facility] Start: 05-12-2022 End: 05-13-[address] [facility] Start: 05-05-2022 End: 05-06-[address] [facility] Start: 04-30-2022 ambulatory PASCUAL [facility] Start: 04-18-2022 End: 04-19-[address] SMILEY URIAS . Facility:[facility] Start: 04-17-2022 ambulatory MARISA [facility] Start: 04-03-2022 End: 04-03-[address] [facility] Start: 04-01-2022 End: 04-01-2022 ambulatory [facility] Start: 03-06-2022 ambulatory SMILEY URIAS Facility:[facility] Start: 02-03-2022 End: 02-03-2022 ambulatory SMILEY URIAS Facility:[facility] Start: 02-03-2022 End: 02-03-2022 Patient encounter procedure Chas Romero DO Work Phone: Neurology Comment on above: Right leg weakness ( Primary Dx) Start: 01-31-2022 End: 02-22-[address] SMILEY URIAS . Facility: Start: 01-30-2022 Telephone encounter Chas laws DO Work Phone: Neurology Comment on above: Results Start: 01-27-2022 End: 01-28-[address] SMILEY URIAS . Facility: Start: 01-23-2022 End: 01-23-2022 ambulatory SMILEY URIAS Facility:[facility] Start: 01-23-2022 End: 01-23-2022 ambulatory Emg 400) Work Phone: Neurology Comment on above: EMG Start: 01-23-2022 End: 01-23-2022 Patient encounter procedure Emg 2 Neur Rej (Max Weight: 400) Work Phone: ANDREA SAUCEDA [facility] Start: 01-22-2022 End: 01-23-[address] SMILEY URIAS . Facility: Start: 01-13-2022 End: 01-14-2022 ambulatory NUZHAT ARZOLA Facility:[facility] Start: 01-01-2022 End: 01-01-2022 ambulatory Rolando Turner Other [facility] Other Start: 01-01-2022 Office outpatient vi sit 15 minutes [facility] Start: 12-06-2021 Telephone encounter Chas laws DO Work Phone: Neurology Comment on above: Insurance Authorizat ion Start: 11-13-2021 End: 11-13-2021 ambulatory Rolando Turner Other [employer] Other Start: 11-13-2021 Office outpatient vi sit 15 minutes Rolando Turner [facility] Start: 11-12-2021 End: 11-12-2021 ambulatory CHAS ROMERO Facility:[facility] Start: 11-12-2021 End: 11-12-2021 Patient encounter procedure Chas Romero DO Work Phone: Neurology Comment on above: Right leg weakness ( Primary Dx) Start: 10-22-2021 Telephone encounter Chas laws DO Work Phone: Neurology Comment on above: Received Outside Med ical Records Start: 10-02-2021 End: 10-16-[address] SMILEY URIAS . Facility: Start: 09-30-2021 End: 09-30-2021 ambulatory Rolando Turner Other [employer] Other Start: 09-30-2021 Telephone encounter Rolando POWELL [facility] Start: 09-24-2021 End: 09-26-2021 ambulatory UNKNOWN PROVIDER Facility:[facility] Start: 09-18-2021 End: 09-18-2021 ambulatory Rolando Turner Other [employer] Other Start: 09-18-2021 Office outpatient vi sit 15 minutes Rolando Turner [facility] Start: 09-06-2021 End: 09-07-2021 ambulatory PRETTY BEST Facility: Start: 07-24-2021 End: 07-24-2021 ambulatory Rolando Turner Other [employer] Other Start: 07-24-2021 Office outpatient vi sit 15 minutes Rolando Turner [facility] Start: 06-12-2021 End: 06-12-2021 ambulatory Rolando Turner Other [facility] Other Start: 06-12-2021 Office outpatient vi sit 15 minutes Rolando Turner [facility] Start: 05-15-2021 End: 05-15-2021 ambulatory Rolando Turner Other [facility] Other Start: 05-15-2021 Office outpatient vi sit 15 minutes Rolando Turner [facility] Start: 04-17-2021 Office outpatient ne w 45 minutes Rolando Turner [facility] Start: 08-13-2017 End: 08-13-2017 Emergency department patient visit [facility] Procedures Date Procedure Procedure Detail Performing Clinician [...] EDSON ZAMAN Start: 08-13-2017 INSERT PERIPHERAL IV MS CODY VILLEGAS Start: 08-13-2017 TELEMETRY MONITORING MS CODY VILLEGAS Start: 08-13-2017 VITAL SIGNS EDSON ZAMAN Plan of Treatment Date Care Activity Detail Author Start: 02-27-2022 Influenza vaccination C [facility] Start: 09-01-2015 HPV TESTING HPV TESTING [facility] Start: 2006 PAP TESTING PAP TESTING [facility] Start: 2004 Urine microalbumin profile DTAP,TDAP,TD (1 - Tdap) [facility] Start: 09-01-2003 ANNUAL PCP TEAM LIFE ADVISOR CAIN DISEASE VISIT ANNUAL PCP TEAM CHRONIC DISEASE VISIT [facility] Start: 09-01-2003 BP CONTROLLED (<130/80) BP CON TROLLED (<130/80) [facility] Start: 09-01-2003 HEPATITIS C SCREENING HEPATITIS C SC MARYLU [facility] Start: 09-01-2003 HIV SCREENING HIV SCREENING [facility] Start: 1997 Adult depression screening assessment DEPRESSION SCREENING [facility] Start: 1990 COVID-19 VACCINE (#1) COVID-19 VACCI NE (#1) [facility] Start: 1990 COVID-19 VACCINE (1) COVID-19 VACCIN E (1) [facility] Start: 03-03-1986 COVID-19 VACCINE (#1) COVID-19 VACCI NE (#1) [facility] Start: 1985 HEPATITIS B (1 of 3 - 3-dose series) HEPATITIS B (1 of 3 - 3-dose series) [facility] End: 11-12-2022 EMG(NEURO/NI) EMG(NEURO/NI) EMG Routine Right leg weakness 1 Occurrences starting 11/12/2021 until 11/12/2022 [facility] Work Phone: Comment on above: 1 Occurrences starti ng 11/12/2021 until 11/12/2022 [facility] Payers Date Payer Category Payer Self-pay 2022 Medicaid [id number] 2021 Unknown [facility] COMP [id number] 2021-Present [phone] [place] [address] [facility] [id number] 2021 Unknown [id number] 2021 Unknown [id number] 2021 Worker's Compensation [id number] 2021 Worker's Compensation 2020 Medicaid [employer] 2020-Present [phone] [address] [place] [address] Medicaid 2020 Medicaid [employer] [id number] 2020-Present [phone] [address] [place] [address] Medicaid [id number] 2014 Unknown [id number] 1985 Unknown [id number] 32 1985 Unknown [id number] [id number] 47 1985 Unknown [id number] [id number] 93 1985 Unknown [id number] [id number] 93 1985 Unknown [id number] 2.16.840.1.344808.3.579.2.5 93 1985 Unknown [id number] [id number] 93 1985 Unknown [id number] [id number] 93 1985 Unknown [id number] [id number] 93 1985 Unknown [id number] [id number] 93 1985 Unknown [id number] [id number] 93 1985 Unknown [id number] [id number] 96 1985 Unknown [id number] [id number] 96 1959 Medicaid [id number] 1959 Unknown [id number] Unknown [id number] 31 Social History Date Type Detail Facility Start: 09-29-2014 Tobacco smoking stat us LAIS Smokes tobacco daily [facility] End: 08-15-2019 History of tobacco use Cigarette Smoker [facility] Start: 09-29-2014 End: 02-03-2022 Cigarettes smoked current (pack per day) - Reported 0.5 [facility] Start: 09-29-2014 End: 02-03-2022 Tobacco use and exposure Smokeless tobacco non-user [facility] Start: 03-02-2015 End: 02-03-2022 Alcohol intake Current non-drinker of alcohol (finding) [facility] Start: 1985 Sex Assigned At Not on file C [facility] Start: 11-12-2021 End: 02-03-2022 Tobacco smoking status NHIS Ex-smoker [facility] End: 08-15-2019 History of tobacco use Current smoker [facility] Start: 11-02-2021 End: 02-03-2022 Exposure to SARS-CoV-2 (event) Not sure [facility] Sex Assigned At Sex Assigned At [facility] [employer] Other Clinical Notes 04-03-2021 to 03-04-2023 Chas [...] 1 month she will likely be at [facility] and then will be released for work either with permanent restrictions or unrestricted depending upon how she feels. She has exhausted conservative care at this point. This patient was seen and examined in the presence of Dr. Cesar Escalante resident in physical medicine and rehabilitation. [facility] 02-23-2023 Note Attestation signed by Jenny [...] improve Chinedu Palacios MD Orthopedic Surgery, PGY-4 [facility] Pager: [phone] 02/23/23 2:00 PM This note was created [...] be an additional personal documentation from me. [facility] 01-12-2023 Note Attestation signed by Jenny [...] be an additional personal documentation from me. [facility] 01-02-2023 Note I called and spoke t o the patient for a discharge follow up call following her procedure. The patient is doing well at home. She is taking ASA per orders. She denies any issues with her surgical dressing. I confirmed with the patient that she has a follow up appointment with Dr. Holley. [facility] 01-01-2023 Note Patient: Nabila cohn Procedure Summary Date: 01/01/23 Room / Location: [facility] OR [address] [place] [address] [facility] OR Anesthesia Start: 0900 Anesthesia Stop: [...] no known notable events for this encounter. [facility] 01-01-2023 Note Airway Date/Time: 01/01/2023 9:16 AM Urgency: elective Airway not difficult General Information and Staff Patient location during procedure: OR Anesthesiologist: Han Aguiar MD Resident/PRESIDENT & CEO [employer]/CAA: TANO Bonner Performed: other anesthesia staff Learner [...] 1 Number of other approaches attempted: 0 [facility] 01-01-2023 Note Patient: Nabila cohn Procedure Information Date/Time: 01/01/23 0930 Procedures: KNEE ARTHROSCOPY WITH (Left: Knee) SAUCERIZATION OF DISCOID MENISCUS AND CHONDROPLASTY OF TROCHLEA (Left: Knee) Location: [facility] OR / [facility] OR Surgeons: Jenny Holley MD Echo complete W/O contrast Order: [id number] Narrative ?Left Ventricle: Systolic function is normal [...] 09:51 Last Resulted: 07/12/19 12:35 Received From: [employer] Result Received: 03/31/22 20:06 View Encounter ??? 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 Additional Equipment Requests [facility] 12-09-2022 Note Called to confirm ap pointment with dietitian scheduled for 12/10; pt request to cancel appointment at this time. [facility] 12-01-2022 Note Attestation signed by Pascual [...] compliance with treatment. Clay [place]low SUBJECTIVE: Nabila Jewell is a 37 y.o. female who presents to [facility] today for [facility] post-concussion syndrome follow up HPI: Patient following [...] by mouth in (more content not included)... [facility] 09-29-2022 Note Attestation signed by Pascual [...] Medication refill was given Erika Damon, MS3 [facility] 09-15-2022 Note Orthopedic Surgery Subjective Chief complaint: Chief Complaint Patient presents with Left Knee - Pain 09/15/22 Nabila Jewell is a 37 year old female who presents for follow up evaluation of her left knee. The pain is unchanged and she would like to undergo surgery. 08/22/2022: Conservative measures have not provided assisted relief, seen today with complaints of left knee pain. PT, medications and CSI have not provided grocery manager relief. 07/02/22 steroid injection at previous visit [...] -Patient reports conservative measures are not providing grocery manager relief for left knee pain. She would like to undergo surgical repair - Consent for left knee arthroscopy has been obtained -Plan L knee chondroplasty trochlea and partial lateral meniscectomy [facility] 08-21-2022 Note Orthopedic Surgery Subjective Chief complaint: Chief Complaint Patient presents with Left Knee - Pain 08/22/22 Conservative measures have not provided assisted relief, seen today with complaints of left knee pain. PT, medications and CSI have not provided assisted relief. 07/02/22 steroid injection at previous visit [...] patient's left knee was brought in from [facility] on a CD disc that was personally [...] -Patient reports conservative measures are not providing assisted relief in regard to her left knee. Refer to Dr Holley for opinion. 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 Encouraged pt to check with insurance for coverage prior to appointment. Time Spent With Pt: 10:00 - 11:30 am [facility] 07-31-2022 Note Called pt to confirm appointment with RD on 08/06/22. She is interested in attending appointment - fax sent to primary care physician (Dr. Urias) and requested for referral with nutrition related diagnosis. [facility] 07-02-2022 Note Subjective Patient ID: Nabila Jewell is a 36 y.o. female. Headache Leg Pain this patient is a 36-year-old female who sustained a work-related head injury. She continues with postconcussive syndrome. At her last visit we did start her on nabumetone been helping her headaches. They lessen the intensity. She continues with physical therapy here at [facility]. She has not yet been returning to [...] Additional Comments: Seen on medical student today [facility] 05-15-2022 Note Attestation signed by Rufino [...] patient's left knee was brought in from [facility] on a CD disc that was personally [...] evaluation Sixto Durham MD PGY-4 Orthopedic Surgery [facility] By using the attestations below, the signing [...] be an additional personal documentation from me. [facility] 04-30-2022 Note ASSESSMENT/PLAN: Nabila was seen today for headaches. [...] a 36 y.o. female who presents to [facility] today for Workers Compensation Follow [...] strength 5/5, R (more content not included)... [facility] 04-30-2022 Note I saw and evaluated the patient, participating in the mc portions of the service. I reviewed the resident???s note. I agree with the resident???s findings and plan. Pascual Uribe MD [facility] 04-17-2022 Note Attestation signed by Marisa Carter, PhD at 04/17/2022 7:11 PM I supervised all aspects of this evaluation. [facility] - NEUROPSYCHOLOGY [address] [place] [address] Ms. Nabila Jewell was seen via [employer] and then Telephone to discuss the neuropsychological evaluation. We discussed the results, their implications, applicable diagnoses, and recommendations. All questions were answered. At this time, she is discharged from the Neuropsychology service. A copy of these results will be available to her via [facility] [employer] or through contacting the Dept. of Health Information Management ([employer]) at [phone]. Contact the Neuropsychology Clinic at [phone] with questions. Linda Scott, PhD Clinical Psychology Neuropsychology [facility] 04-17-2022 Note Attestation signed by Marisa Carter PhD at 04/22/2022 1:40 PM I supervised all aspects of this service. 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 She recalls multiple details of events prior to arriving at work and for the first few hours of her shift. She reports that her next memory is of lying on the floor near the door to the kitchen feeling leg and head pain. She reports that she was working alone in the kitchen at the time of the fall, but that a cement mason maintenance came in to assist her and a supervisor photoengraving was also called, who in turn called EMS. Ms. Jewell reports she was transported to [facility] in [place], [place], and adds a few memories of [...] seen as a new patient for a [place] of Worker's Compensation claim related to concussion [...] also includes a 02/03/22 visit note from [facility] Neurology with Chas Romero DO (Neuromuscular [...] 2020 injury. Review of medical records from [facility] on 11/12/21 indicate additional history of [...] but previously saw Dr. Carole Caba at [facility]. She reports she currently follows with Wendy Rubio CNP at [facility]. She reports no history of psychological or neuropsychological evaluation, and no history of psychiatric hospitalization. SUBSTANCE USE: Ms. Jewell reports no current use of alcohol and no history of significant alcohol use. She reports no illicit drug use (more content not included)... [facility] 04-03-2022 Note Attestation signed by Rufino [...] patient's left knee was brought in from [facility] on a CD disc that was personally [...] 04/03/22 10:18 AM (more content not included)... [facility] 04-01-2022 Note [id number] Rebecca Jewell 1985 F Date Provider Department Center 04/01/2022 MARISA SIMON MP REHAB PSY [facility] No family history on file Reason for Visit and Comments: Concussion [[id number]] [facility] 04-01-2022 Note Attestation signed by Marisa Carter, PhD at 04/01/2022 1:03 PM I participated in and supervised all aspects of this service. REVIEWED BY: Marisa Carter, PhD, ABPP Board Certified Clinical Neuropsychologist [facility] OUTPATIENT RE[facility] - NEUROPSYCHOLOGY [address] [facility] [place] [address] Ms. Nabila Jewell was seen for a neuropsychological evaluation on 04/01/2022. A report describing the results of this evaluation will be posted after the follow-up appointment is completed. Linda Scott, PhD Clinical Psychologist Neuropsychology Fellow [facility] 04-01-2022 Note Ms. Nabila Jewell has a follow-up appointment on 04/17/2022 with Linda Scott, PhD & Marisa Carter, PhD ABPP in Neuropsychology, to discuss the results of the evaluation on 04/01/2022. This appointment will be conducted via [employer]. [facility] 02-03-2022 Note HNO ID: [id number] Author: Chas Romero, DO Service: ? Author Type: Physician Type: Progress Notes Filed: 02/03/2022 11:27 AM Note Text: Neuromuscular Clinic Follow up Visit SERVICE DATE: 02/03/2022 PCP: Smiley Urias MD [address] [place] [address] Reason for Evaluation: Consultation requested by Self for an opinion regarding right leg weakness Family/Friend accompanying the patient today: none HPI: This is Ms. Nabila Jewell, a 36 year old female who presents to the [facility] with the chief complaint above. 02/03/2022: [...] get up after this. She went to [facility] in [place]. She was evaluated and did testing and [...] significant dysarthria M (more content not included)... [facility] 02-03-2022 History of Present illness Narrative Neuromuscular Clinic Follow up Visit SERVICE DATE: 02/03/2022 PCP: Smiley Urias MD [address] [place] [address] Reason for Evaluation: Consultation requested by Self for an opinion regarding right leg weakness Family/Friend accompanying the patient today: none HPI: This is Ms. Nabila Jewell, a 36 year old female who presents to the [facility] with the chief complaint above. 02/03/2022: [...] get up after this. She went to [facility] in [place]. She was evaluated and did testing and [...] which included preparing to see the patient, [id number] patient care, completing clinical documentation, obtaining and/or reviewing separately obtained history, performing a medically appropriate examination, and counseling and educating the patient/family/caregiver. documented in this encounter [facility] 01-30-2022 Miscellaneous Notes I called patient and communicated results of EMG testing, all questions answered. Advised her that she does not need to follow up with me. Chas Romero DO documented in this encounter [facility] 01-23-2022 Note HNO ID: [id number] Author: Sofi Hernandez MD Service: ? Author [...] [facility] EMG Tech Sofi Hernandez MD [facility] 01-23-2022 History of Present illness Narrative UNIVERSAL [...] of Care Visit completed when applicable. MARLIN Sapngler MD documented in this encounter [facility] 01-14-2022 Note PROCEDURE: XR KNEE L [...] authenticated by: PASCUAL GAMBLE Date: 2022-01-14 12:01 [place] 01-01-2022 Evaluation note Encounter Date Diagnosis Assessment [...] months if needed Continue restrictions- off work. [employer] Other 06-10-2022 Miscellaneous Notes* Telephone Encounter - Sky Rapp - 12/06/2021 11:31 AM EDT Relationship to patient: Self Reason for call (non-seizure related) Patient called asking about status of prior authorization [facility] order Patient of Dr. Romero [facility] note* Encounter Date Diagnosis Assessment [...] patient tolerated well with no adverse reactions. [employer] Other 05-17-2022 NoteHNO ID: [id number] Author: Chas Romero, DO Service: ? Author Type: Physician Type: Progress Notes Filed: 11/12/2021 2:58 PM Note Text: Neuromuscular Clinic New Patient Visit SERVICE DATE: 11/12/2021 PCP: Smiley Urias MD [facility] [id number] Reason for Evaluation: Consultation requested by Self for an opinion regarding right leg weakness Family/Friend accompanying the patient today: none HPI: This is Ms. Nabila Jewell, a 36 year old female who presents to the [facility] with the chief complaint above. She had an injury at work (March 2021)-she fell and hit her head on a prep table and fell onto her knee. She had difficulty moving to get up after this. She went to [facility] in [place]. She was evaluated and did testing and [...] Hip abduction 4+ (giveaw (more content not included)...[facility]05-17-2022 Instructions* Patient Instructions* Chas Romero DO - 11/12/2021 2:47 PM EDT You were seen today for right leg weakness, I ordered EMG to assess for this. Continue physical therapy exercises. [facility] History of Present illness Narrative* Chas Romero DO - 11/12/2021 2:00 PM EDT Neuromuscular Clinic New Patient Visit SERVICE DATE: 11/12/2021 PCP: Smiley Urias MD [address] [place], [place] [id number] Reason for Evaluation: Consultation requested by Self for an opinion regarding right leg weakness Family/Friend accompanying the patient today: none HPI: This is Ms. Nabila Jewell, a 36 year old female who presents to the [facility] with the chief complaint above. She had an injury at work (March 2021)-she fell and hit her head on a prep table and fell onto her knee. She had difficulty moving to get up after this. She went to [facility] in [place]. She was evaluated and did testing and [...] which included preparing to see the patient, [id number] patient care, completing clinical documentation, obtaining and/or reviewing separately obtained history, performing a medically appropriate examination, counseling and educating the pat ient/family/caregiver and ordering medications, tests, or procedures. [facility] Miscellaneous Notes* Telephone Encounter - Sky Rapp - 10/22/2021 10:54 AM EDT Referral, medical records received and scanned in for review. [facility] Evaluation note* Encounter Date Diagnosis Assessment Notes Treatment Notes Treatment Clinical Notes Aug, Sprain of unspecified site of right knee, initial encounter (ICD-10 - S83.91XA) Continue physical therapy with approval [facility] and referral to neurology for knee weakness [...] Continue restrictions-of f work, Continue with therapy [employer] Other 01-26-2022 Evaluation note* Encounter Date Diagnosis [...] pain. Continue restrictions-off work, Continue with therapy [employer] Other 12-15-2021 Evaluation note* Encounter Date Diagnosis [...] on the affected leg. Continue off work [employer] Other 11-17-2021 Evaluation note* Encounter Date Diagnosis [...] She has seen an occupational physician at [facility] who is ordered a hinged knee brace [...] weeks therapy. Apply for for cortisone injection. [facility] Continue off work [employer] Other 10-20-2021 Evaluation note* Encounter Date Diagnosis [...] will submit for an MRI approval throught [facility]. Continue off of work. Mar, Other See orders for this visit as documented in the electronic medical record. [employer] Other 10-06-2021 NoteChief Complaint consultation for abscess [...] 2: Father. Hyperlipidemia: Father. Hypertension: Mother and Father.[facility]: Result Comment: Electronically Signed By: LAVELL QUARLES, Edson Strong\Date and Time Signed: 04/03/21 16:35 EDTEvaluation note* Diagnosis Right leg weakness- Primary Other musculoskeletal symptoms referable to limbs documented in this encounter [facility] noteNo InformationNortPaladin Healthcare [employer] Other Evaluation note* Diagnosis Right leg weakness Other musculoskeletal symptoms referable to limbs documented in this encounter [facility] note* Diagnosis Right leg weakness- Primary Other musculoskeletal symptoms referable to limbs documented in this encounter [facility] general Narrative - Reported* Type Description Date Medical History Chronic back pain Medical History HTN Medical History Anxiety Surgical History cholecystectomy Surgical History C section x 2 Surgical History pilonidal cyst Hospitalization History HTN [place] [employer] Other History general Narrative - Reported* Type Description Date Medical History Chronic back pain Medical History HTN Medical History Anxiety Surgical History cholecystectomy Surgical History C section x 2 Surgical History pilonidal cyst Hospitalization History HTN Hospitalization History see surgeries [employer] Other Reason for referral (narrative)* Outpatient Procedure (Routine) - Authorized Specialty Diagnoses / Procedures Referred By Daniel perry Referred To Contact [facility] Diagnoses Right leg weakness Procedures EMG(NEURO/NI) NERVE CONDUCTION STUDIES 9-10 STUDIES Chas Romero DO [address] [place] [address] [facility] [place] [address] [place] [address] Referral ID Status Reason Start Date Expiration Date Visits Requested Visits Authorized [id number] Authorized Auto-Generat ed Referral 11/12/2021 11/12/2022 1 1 [facility] for referral (narrative)* Reason referral for neurolo gy for weakness of the right knee and second opinion Diagnosis 1 Sprain of unspecifie d site of right knee, initial encounter (S83.91XA) [facility] Referring Provider First Name Rolando Referring Provider Last Name Miracle Referring Provider Specialty Orthopedic Surgery Referred Organization Unknown Facility Referred Provider Specialty Neurology Referral Priority Routine [employer] Other Summary Purpose Family History No Family [...] DATE CREATED AUTHOR AUTHOR'S ORGANIZ ATION 03/02/2020 [facility] DATE CREATED AUTHOR AUTHOR'S ORGANIZ ATION 03/06/2021 [facility] DATE CREATED AUTHOR AUTHOR'S ORGANIZ ATION 04/10/2021 [facility]resh [facility] DATE CREATED AUTHOR AUTHOR'S ORGANIZ ATION 09/29/2021 [facility] DATE CREATED AUTHOR AUTHOR'S ORGANIZ ATION 03/06/2022 [facility] DATE CREATED AUTHOR AUTHOR'S ORGANIZ ATION 04/04/2022 [facility] DATE CREATED AUTHOR AUTHOR'S ORGANIZ ATION 08/29/2022 [facility] DATE CREATED AUTHOR AUTHOR'S ORGANIZ ATION 03/08/2023 [facility] DATE CREATED AUTHOR AUTHOR'S ORGANIZ ATION 06/24/2023 [facility] DATE CREATED AUTHOR AUTHOR'S ORGANIZ ATION 07/09/2023 [facility] Source Comments (unrecognize d section and content) In the event this informatio n is protected by the Federal Confidentiality of Alcohol and Drug Abuse Patient Records regulations: The Federal rules restrict any use of the information to criminally investigate or prosecute any alcohol or drug abuse patient.[facility] the event this information is protected by the Federal Confidentiality of Alcohol and Drug Abuse Patient Records regulations: The Federal rules restrict any use of the information to criminally investigate or prosecute any alcohol or drug abuse patient.[facility] the event this information is protected by the Federal Confidentiality of Alcohol and Drug Abuse Patient Records regulations: The Federal rules restrict any use of the information to criminally investigate or prosecute any alcohol or drug abuse patient.[facility] Hospital[facility] the event this information is protected by the Federal Confidentiality of Alcohol and Drug Abuse Patient Records regulations: The Federal rules restrict any use of the information to criminally investigate or prosecute any alcohol or drug abuse patient.[facility] Hospital[facility] the event this information is protected by the Federal Confidentiality of Alcohol and Drug Abuse Patient Records regulations: The Federal rules restrict any use of the information to criminally investigate or prosecute any alcohol or drug abuse patient.[facility] Hospital[facility] the event this information is protected by the Federal Confidentiality of Alcohol and Drug Abuse Patient Records regulations: The Federal rules restrict any use of the information to criminally investigate or prosecute any alcohol or drug abuse patient.[facility] Reason for Visit (unrecogniz ed section and content) Reason Comments Received Outside Medical Records Reason Comments New Patient Musculoskeletal Problem RT lower extremi ties Reason Comments Insurance Authorization Reason Comments EMG Specialty Diagnoses / Procedures Referred By Daniel t Referred To Contact [facility] Diagnoses Right leg weakness Procedures EMG(NEURO/NI) NERVE CONDUCTION STUDIES 9-10 STUDIES Chas Romero DO [address] [place] [address] [facility] [place] [address] [place] [address] Referral ID Status Reason Start Date Expiration Date V isits Requested Visits Authorized [id number] Closed Auto-Generate d Referral 11/12/2021 11/12/2022 1 1 Reason Comments Results Reason Comments Established Patient Follow Up Visit Care Teams (unrecognized sec tion and content) Manager Revenue Relationship Specialty Start Date End Date Smiley Urias MD PCP - General Family Practice 03/02/14 Serafin Bartlett, DO [address] [address] Referring Neurology 04/14/19 Rolando Turner, DO [address] [address] Referring Orthopedics 10/11/21 Manager Revenue Relationship Specialty Start Date End Date Smiley Urias MD PCP - General Family Practice 03/02/14 Serafin Bartlett, DO [address] [address] Referring Neurology 04/14/19 Rolando Turner, DO [address] [place] [address] Referring Orthopedics 10/11/21 Manager Revenue Relationship Specialty Start Date End Date Smiley Urias MD PCP - General Family Practice 03/02/14 Serafin Bartlett, DO [address] [place] [address] Referring Neurology 04/14/19 Rolando Turner, DO [address] [place] [address] Referring Orthopedics 10/11/21 Zehra Holly, SUPERVISOR FILM PROCESSING [address] [place] [facility] [place] [phone] Referring Family Practice 11/19/21 Manager Revenue Relationship Specialty Start Date End Date Smiley Urias MD PCP - General Family Practice 03/02/14 Serafin Bartlett, DO [address] [place] [phone] Referring Neurology 04/14/19 Rolando Turner, DO [address] [address] Referring Orthopedics 10/11/21 Zehra Holly, SUPERVISOR FILM PROCESSING [address] [place] [facility] [place] [phone] Referring Family Practice 11/19/21 Manager Revenue Relationship Specialty Start Date End Date Smiley Urias MD PCP - General Family Practice 03/02/14 Serafin Bartlett, DO [address] [place] [address] Referring Neurology 04/14/19 Rolando Turner, DO [address] [place] [address] Referring Orthopedics 10/11/21 Zehra Holly, SUPERVISOR FILM PROCESSING [address] [place] [facility] [place] [phone] Referring [facility] 11/19/21 FOR RECORDS PERTAINING TO PATIENTS [...] BE BASED ON THE PRIMARY CLINICAL RECORDS. [facility] [facility]. provides no warranty or guarantee of the accuracy or completeness of information in this document.
--- NOTE | 2023-07-13 15:34 | P.CN_ITS ---
Consult Note: HPI Data of Consult Patient: known to practice within the last 3 years Consult date: 07/13/23 Requesting Physician: Fabián Archer MD Primary Care Provider: Yovani Echols MD Consult Narrative Reason for consult: neck pain, headaches Narrative: 37yof who presents for assessment. continues to have neck pain and headaches. recently underwent cervical XR, which does not show any acute pathology. continues to stay as active as possible and is actively working to lose weight. continues on celebrex, gabapentin, elavil. denies adverse med side effects. cc:: CC: Fabián Acrher MD Review of Systems ROS Status of ROS 10 or more systems reviewed and unremark able except as noted in history and below Meds Home Medications and Allergies Home Medications Medication Instructions Recorded Confirmed Type alprazolam 0.5 mg tablet (Xanax) 0.5 mg PO BID 04/27/23 04/27/23 History amitriptyline 25 mg tablet 25 mg PO DAILY 04/27/23 04/27/23 History celecoxib 200 mg capsule (Celebrex) 200 mg PO BID 04/27/23 04/27/23 History gabapentin 300 mg capsule 300 mg PO TID 04/27/23 04/27/23 History lisinopril 20 mg tablet 20 mg PO DAILY 04/27/23 04/27/23 History magnesium 200 mg tablet 400 mg PO DAILY 04/27/23 04/27/23 History methadone 10 mg/mL oral 50 mg PO DAILY 04/27/23 04/27/23 History concentrate (Methadose) potassium 20 meq PO BEDTIME 04/27/23 04/27/23 History ferrous sulfate 325 mg (65 mg 325 mg PO DAILY 06/15/23 06/15/23 History iron) tablet (Feosol) Allergies Allergy/AdvReac Type Severity Reaction Status Date / Time azithromycin Allergy Unknown Verified 04/27/23 13:41 Exam Narrative Exam Narrative: Psych-alert and oriented x 3.? Attentive and appropriate, constitutionally normal, displays normal mood and affect per situation.? There are no obvious deficits in memory, reasoning, or intellect.? Skin-no obvious rashes, bruising, or erythema noted to the patient's area of pain. Extremities-upper extremities are warm with minimal edema and palpable pulses. Cervical- tenderness to palpation noted in the cervical spine and paraspinal musculature.? Pain is elicited with extension, and lateral rotation of the cervical spine.? Range of motion is slightly diminished due to pain. Facet loading maneuvers are positive bilaterally.? Coordination remains intact.? Gait remains non-antalgic. Assessment and Plan Assessment and Plan (1) Cervicalgia: (2) Cervical spondylosis: Plan 37yof who presents for assessment. imaging reviewed, as noted. given symptoms and imaging, encouraged her to try chiropractic therapy. she is in agreement. discussed that if pain does not improve with chiropractor, could trial diagnostic bilateral c2-3, c3-4 mbbs under fluoroscopic guidance. she expressed understanding. meds reviewed, no changes. agreed to take over prescription of amitriptyline when needed. follow up in 3 months.
== END 2023-07-13 14:44 | disposition home or self-care (01) ==
LOC: PM 14:44
PROVIDERS: PCP Family Medicine; Visit Provider Anesthesiology
DX: M54.2 Cervicalgia (principal); M47.812 Spondylosis without myelopathy or radiculopathy, cervical region
CPT/HCPCS: G0463

== ENCOUNTER 2023-07-21 11:42 | Outpatient (OUT) | payer OTHER, SELFPAY ==
--- OUTSIDE RECORDS SUMMARY | 2023-07-21 11:46 | XMS_ITS | CCD ---
Author Name Unknown Address [address] [place] [address] Organization [facility] Care Team Providers Care Chorus Dancer Name Role Phone VILLEGASEDSON PLASCENCIA Unavailable Unavailab SMILEY Dawkins Unavailable Unavailable PROVIDER, UNKNOWN Attending Unavailable PROVIDER, UNKNOWN Admitting Unavailable Smiley Urias MD Primary Care Provider [phone] Serafin Bartlett DO Unavailable Rolando Turner DO Unavailable [phone] Zehra Holly CNP Unavailable [phone] Rolando Turner Unavailable Smiley Urias MD Primary Care Provider [phone] Serafin Bartlett DO Unavailable Rolando Turner DO Unavailable Zehra Holly CNP Unavailable [phone] SMILEY URIAS Referring Unavailable SMILEY URIAS Primary [...] HOY ., DR REIS Primary Care Unavailable DELAVAN, DR JENNY Barbosa Consulting Unavailable HOY ., [...] RUFINO Referring Unavailable MARISA CARTER Attending Unavailable KHNAG BORRERO Referring Unavailable Gianni QUARLES, Fabián Allen Attending Unavailable Gianni QUARLES, Fabián Allen Attending Unavailable Luiz Knight Attending Unavailab Luiz Brennan Admitting Unavailab Smiley Dawkins Primary Care Unavailable Allergies Allergy Classification Reported Allergen(s) Allergy Type Date of Onset Reaction(s) Facility (7 sources) Erythromycin; Translations: [ERYTHROMYCIN] Drug Allergy 2 anaphylaxis [facility] Repository (1 source) Erythromycin Drug Allergy 0 [facility] Repository (1 source) Erythromycin Drug Allergy 1 [facility] Repository (1 source) Erythromycin; Translations: [ERYTHROMYCIN LACTOBIONATE] Drug Allergy 2 [facility] Repository (1 source) ALLERGIES NOT ON FILE; Translations: [ALLERGIES NOT ON FILE] Propensity to adverse reactions (disorder) [facility] Repository (1 source) Azithromycin Drug Allergy 1 [facility] Repository Medications Current Medications Medication Drug [...] on above: Take [address] [facility] once daily. 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 Patient was sent the letter. [facility] 3603-05-2023 36 Patient states she received a note for work but she needs a note stating she is off work. Please email if MD writes she states it is for jobs and family services and she states that is what they need. [facility] Follow-Upon 03-04-2023 Follow-Up [id number] Rebecca Jewell 1985 F Date Provider Department Center 03/04/2023 PASCUAL HOPKINS MP PHYS MED Medical Pavi No family history on file Level of Service:07702 [place] OFFICE/OUTPATIENT ESTABLISHED LOW MDM 20-29 MIN (GC) Reason for Visit and Comments: Concussion [287912] - [facility] Office Visiton 02-23-2023 Follow-up visit [id number] Rebecca Jewell 1985 F Date Provider Department Center 02/23/2023 JENNY MARAVILLA MP ORTHO MPORTHO No family history on file Level of Service:10694 RI POSTOP FOLLOW UP VISIT RELATED TO ORIGINAL PX (GC) Reason for Visit and Comments: Pain [136] Follow-up [463401] [facility] Office Visiton 01-12-2023 Follow-up visit [id number] Rebecca Jewell 1985 F Date Provider Department Center 01/12/2023 JENNY MARAVILLA MP ORTHO MPORTHO No family history on file Level of Service:62542 RI POSTOP FOLLOW UP VISIT RELATED TO ORIGINAL PX (GC) Reason for Visit and Comments: Post-op [483] Normal [facility] Orders Onlyon 01-08-2023 Orders Only [id number] Rebecca Jewell 1985 F Date Provider Department Center 01/08/2023 SHRUTHI TORREZ MP ORTHO MPORTHO No family history on file Normal [facility] OPNOTEon 01-01-2023 OPNOTE KNEE ARTHROSCOPY WIT H PARTILA LATERAL MENISCECTOMY (L), CHONDROPLASTY (L) Operative Note Date: 01/01/2023 Location: [facility] OR Name: Nabila Jewell, : 1985, Diagnosis Pre-op Diagnosis * 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 Condition: stable Jenny Holley Normal [facility] POCT GLUCOSE METER UNSOLICIT ED RESULTSon 01-01-2023 Glucose [Mass/Vol] 93 mg/dL Normal 70-105 [facility] [place] Comment on above: Order Comment: Waive d Testing in the ED is performed under the ED CLIA certificate #[id number]. 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 NO JEWELRY BRING INS AND ID Take the meds we spoke about w/a sip of water DOS: ALL NORMAL AM MEDS ARRIVE AT [facility] Normal [facility] Documentationon 12-09-2022 Documentation [id number] Rebecca Jewell 1985 F Date Provider Department Center 12/09/2022 PARRISH STOVER MP DIETARY Medical Pavi Chart Close Cosign Required by: Samir Mendoza MD[1894] No family history on file [facility] 36on 12-03-2022 36 [employer] from [employer] [facility] calls to state the last note sent with the [employer] has a statement that patient can work 4 hours per day 20 hours per week but [employer] sent yesterday did not have any thing listed but patient states there were no changes and she is still to be off work. I pulled up [employer] sent in by engineering writer and I had forgotten to check the no changes box. In same note it does state by MD patient is not working and will be evaluated upon next ov. I informed her of the error and she requested I resend with the no changes box checked. Form was reprinted and faxed back. [facility] 36 Patient calls to sta deana [...] so she will call the [employer] back. [facility] Telephoneon 12-03-2022 Telephone [id number] Rebecca Jewell 1985 Date Provider Department Center 12/03/2022 PASCUAL HOPKINS MP PHYS MED Medical Pavi No family history on file [facility] Follow-Upon 12-01-2022 Follow-Up [id number] Taj Jewellvenancio Esparza 1985 Date Provider Department Center 12/01/2022 PASCUAL HOPKINS MP PHYS MED Medical Pavi No family history on file Level of Service:93353 [place] OFFICE/OUTPATIENT ESTABLISHED LOW MDM 20-29 MIN (GC) Reason for Visit and Comments: headaches [Other] - [facility] Follow-Upon 09-29-2022 Follow-Up [id number] Taj Jewellvenancio Esparza 1985 F Date Provider Department Center 09/29/2022 PASCUAL HOPKINS MP PHYS MED Medical Pavi No family history on file Level of Service:82579 RI OFFICE/OUTPATIENT ESTABLISHED LOW MDM 20-29 MIN Reason for Visit and Comments: headaches [Other] Leg Pain [112872] - Right Normal [facility] Orders Onlyon 09-29-2022 Orders Only [id number] Taj Jewellvenancio Esparza 1985 F Date Provider Department Center 09/29/2022 PASCUAL HOPKINS MP PHYS MED Medical Pavi No family history on file Normal [facility] Office Visiton 09-15-2022 Follow-up visit [id number] Taj Jewellvenancio Esparza 1985 Provider Department [place] 09/15/2022 JENNY MARAVILLA MP ORTHO MPORTHO No family history on file Level of Service:87552 RI OFFICE/OUTPATIENT ESTABLISHED MOD MDM 30-39 MIN (57) Reason for Visit and Comments: Pain [136] Normal [facility] CULTURE URINEon 08-22-2022 CULTURE URINE Culture Observations : MODERATE GROWTH OF MIXED GENITAL GISELLE. NO POTENTIAL PATHOGENS SEEN. Normal [facility] Comment on above: Performed By: #### T SH, LIPID, CMP, URIC, T7, CRP #### [facility] [address] [place] [address] Dr. Walker Gabriel UA RANDOM W/MICROSCOPICon BACTERIA MODERATE Abnormal NONE SEEN [facility] Comment on above: Performed By: #### U AMIC #### [facility] [address] [address] [address] Walker Gabriel Bilirubin Ql (U) Negative Normal NEGATIVE [facility] Comment on above: Performed By: #### U AMIC #### [facility] [address] [address] [address] Walker Gabriel CAST NONE SEEN Normal NONE SEEN [facility] Comment on above: Performed By: #### U AMIC #### [facility] [address] [place] [address] Dr. Walker Gabriel Clarity (U) CLEAR Normal CLEAR [facility] Comment on above: Performed By: #### U AMIC #### [facility] [address] [address] [address] Walker Gabriel Color (U) YELLOW Normal YELLOW [facility] Comment on above: Performed By: #### U AMIC #### [facility] [address] [address] [address] Walker Gabriel Crystals LM Nom (Urine sed) NONE SEEN Normal NONE SEEN [facility] Comment on above: Performed By: #### U AMIC #### [facility] [address] [address] [address] Walker Gabriel Epithelial cells LM Ql (Urine sed) FEW Abnormal NONE SEEN /RARE [facility] Comment on above: Performed By: #### U AMIC #### [facility] [address] [place] [address] Dr. Walker Gabriel Glucose Ql (U) Negative Normal NEGATIVE [facility] Comment on above: Performed By: #### U AMIC #### [facility] [address] [address] [address] Walker Gabriel Hemoglobin Ql (U) TRACE-LYSED Abnormal NEGATIVE [facility] Comment on above: Performed By: #### U AMIC #### [facility] [address] [place] [address] Dr. Walker Gabriel Ketones Ql (U) Negative Normal NEGATIVE [facility] Comment on above: Performed By: #### U AMIC #### [facility] [address] [address] [address] Walker Gabriel LEUKOCYTES Negative Normal NEGATIVE [facility] Comment on above: Performed By: #### U AMIC #### [facility] [address] [address] [address] Walker Gabriel MUCOUS NONE SEEN Normal NONE SEEN [facility] Comment on above: Performed By: #### U AMIC #### [facility] [address] [place] [address] Dr. Walker Gabriel Nitrite Ql (U) Negative Normal NEGATIVE [facility] Comment on above: Performed By: #### U AMIC #### [facility] [address] [place] [address] Dr. Wakler Gabriel pH (U) 6.0 [pH] Normal 5-[address] [facility] Comment on above: Performed By: #### U AMIC #### [facility] [address] [address] [address] Walker Gabriel RBC 0-2 Normal 0-2 [facility] Comment on above: Performed By: #### U AMIC #### [facility] [address] [place] [address] Dr. Walker Gabriel SPEC GRAVITY >=1.030 Abnormal 1.005-<=1.025 [facility] Comment on above: Performed By: #### U AMIC #### [facility] [address] [place] [address] Dr. Walker Gabriel UA PROTEIN Negative Normal NEGATIVE/ TRACE [facility] Comment on above: Performed By: #### U AMIC #### [facility] [address] [place] [address] Dr. Walker Gabriel Urobilinogen Qn (U) 0.2 {Natalie'U}/dL Normal 0.2 - 1. 0 [facility] Comment on above: Performed By: #### U AMIC #### [facility] [address] [place] [address] Dr. Walker Gabriel WBC 2-5 Abnormal NONE SEEN [facility] Comment on above: Performed By: #### U AMIC #### [facility] [address] [place] [address] Dr. Walker Gabriel XR KUB 1 VIEWon [...] PASCUAL GAMBLE Date: 2022-08-22 12:[address] [facility] Follow-Upon 08-21-2022 Follow-Up [id number] Rebecca Jewell M 1985 Provider Department [place] 08/21/2022 Lupe-CAROLE PONCE MP ORTHO MPORTHO No family history on file Level of Service:89774 RI OFFICE/OUTPATIENT ESTABLISHED LOW MDM 20-29 MIN Reason for Visit and Comments: Pain [136] [facility] Clinical Supporton Clinical Support [id number] Rebecca Jewell M 1985 [facility] Provider Department [place] 08/06/2022 PARRISH STOVER MP DIETARY Medical Pavi Chart Close Cosign Required by: Samir Mendoza MD[1894] No family history on file Reason for Visit and Comments: Obesity [[id number]] Hypertension [049798] [facility] Erroneous Encounteron 2022 Erroneous Encounter [id number] Rebecca Jewell M 1985 [facility] 08/06/2022 PARRISH STOVER MP DIETARY Medical Pavi No family history on file Reason for Visit and Comments: Error (VOID this visit) [77] [facility] Documentationon 07-31-2022 Documentation [id number] Rebecca Jewell M 1985 [facility] 07/31/2022 PARRISH STOVER [facility] NUTRN DC Medical C Chart Close Cosign Required by: Samir Mendoza MD[1890] No family history on file [facility] Follow-Upon 07-02-2022 Follow-Up [id number] Rebecca Jewell M 1985 [facility] Department [place] 07/02/2022 PASCUAL HOPKINS MP PHYS MED Medical Pavi No family history on file Level of Service:13824 RI OFFICE/OUTPATIENT ESTABLISHED MOD MDM 30-39 MIN Reason for Visit and Comments: Headache [52] Leg Pain [704262] - Right [facility] Refillon 05-28-2022 Refill [id number] Rebecca Jewell ey M 1985 Provider Department [place] 05/28/2022 PASCUAL HOPKINS MP PHYS MED Medical Pavi No family history on file Reason for Visit and Comments: Med Refill [831518] Normal [facility] Follow-Upon 05-15-2022 Follow-Up [id number] Rebecca Jewell M 1985 F Date Provider Department Center 05/15/2022 RUFINO DICKERSON MP ORTHO MPORTHO Chart Close Cosign Required by: Rufino Perdomo MD[[id number]] No family history on file Level of Service:83714 RI OFFICE/OUTPATIENT ESTABLISHED LOW MDM 20-29 MIN (GC) Reason for Visit and Comments: Follow-up [529798] - Follow up on left knee pain. [facility] Follow-Upon 04-30-2022 Follow-Up [id number] Rebecca Jewell M 1985 F Date Provider Department Center 04/30/2022 PASCUAL HOPKINS MP PHYS MED Medical Pavi No family history on file Level of Service:40171 [place] OFFICE/OUTPATIENT ESTABLISHED MOD MDM 30-39 MIN (GC) Reason for Visit and Comments: headaches [Other] [facility] DARIO by IFAon 04-21-2022 Antinuclear Antibodies, IFA Negative Normal [facility] Comment on above: Result Comment: Nega tive <1:80 Borderline 1:80 Positive >1:80 ICAP nomenclature: AC-0 For more information about Hep-2 cell patterns use ANApatterns.org, the official website for the International Consensus on Antinuclear Antibody (DARIO) Patterns (ICAP). Performed By: #### T SH, LIPID, CMP, URIC, T7, CRP #### [facility] [address] [address] [address] Walker Gabriel SLE PROFILE Aon 04-21-2022 Anti-DNA (DS) Ab Qn 3 IU/mL Normal 0-9 [facility] Comment on above: Result Comment: Nega tive <5 Equivocal 5 - 9 Positive >9 Performed By: #### S JUSTO #### [facility] [address] [place], [place] [address] Dr. Walker Gabriel Antichromatin Antibodies <0.2 Normal 0.0-0.9 [facility] Comment on above: Performed By: #### S JUSTO #### [facility] [address] [address] [address] Walker Gabriel RA Latex Turbid. <10.0 Normal <14.[address] [facility] Comment on above: Performed By: #### S JUSTO #### [facility] [address] [address] [address] Walker Gabriel MANAGER PRODUCT MARKETING Antibodies <0.2 Normal 0.0-0.9 [facility] Comment on above: Performed By: #### S JUSTO #### [facility] [address] [place] [address] Dr. Walker Gabriel Sjogren's Anti-SS-A <0.2 Normal 0.0-0.9 [facility] Comment on above: Performed By: #### S JUSTO #### [facility] [address] [place] [address] Dr. Walker Grayogrlinda'lety Anti-SS-B <0.2 Normal 0.0-0.9 [facility] Comment on above: Performed By: #### S JUSTO #### [facility] [address] [place] [address] Dr. Walker Gabriel Lemus Antibodies <0.2 Normal 0.0-0.[address] [facility] Comment on above: Performed By: #### S JUSTO #### [facility] [address] [place] [address] Dr. Walker Gabriel ANTISTREPTOLYSIN O AB (ASO)o n 04-19-2022 Antistreptolysin O Ab 227.2 IU/mL Critically high 0.0-200.0 [facility] Comment on above: Performed By: #### T SH, LIPID, CMP, URIC, T7, CRP #### [facility] [address] [place] [address] Dr. Walker Gabriel INSULINon 04-19-2022 Insulin 20.8 uIU/mL Normal 2.6-24.9 [facility] Comment on above: Performed By: #### T SH, LIPID, CMP, URIC, T7, CRP #### [facility] [address] [place] [address] Dr. Walker Gabriel CBC AUTO DIFFon 04-18-2022 BASO # 0.0 103/ul Normal 0.0-0.[address] [facility] Comment on above: Performed By: #### T SH, LIPID, CMP, URIC, T7, CRP #### [facility] [address] [place] [address] Dr. Walker Gabriel Basophils/100 WBC (Bld) 0.4 % Normal 0.2-2.[address] [facility] Comment on above: Performed By: #### T SH, LIPID, CMP, URIC, T7, CRP #### [facility] [address] [place] [address] Dr. Walker Gabriel EO # 0.1 103/ul Normal 0.0-0.[address] [facility] Comment on above: Performed By: #### T SH, LIPID, CMP, URIC, T7, CRP #### [facility] [address] [place] [address] Dr. Walker Gabriel Eosinophils/100 WBC (Bld) 1.4 % Normal 0.9-7.[address] [facility] Comment on above: Performed By: #### T SH, LIPID, CMP, URIC, T7, CRP #### [facility] [address] [place] [address] Dr. Walker Gabriel Erythrocyte distribution width (RBC) [Ratio] 12.8 % Normal 11.0-15.[address] [facility] Comment on above: Performed By: #### T SH, LIPID, CMP, URIC, T7, CRP #### [facility] [address] [place] [address] Dr. Walker Gabriel Hematocrit (Bld) [Volume fraction] 38.1 % Normal 36.0-48.[address] [facility] Comment on above: Performed By: #### T SH, LIPID, CMP, URIC, T7, CRP #### [facility] [address] [place] [address] Dr. Walker Gabriel Hemoglobin (Bld) [Mass/Vol] 12.3 g/dL Normal 12.0-16.[address] [facility] Comment on above: Performed By: #### T SH, LIPID, CMP, URIC, T7, CRP #### [facility] [address] [place] [address] Dr. Walker Gabriel IG # 0.03 10e3/ul Normal 0.00-0.03 [facility] Comment on above: Performed By: #### T SH, LIPID, CMP, URIC, T7, CRP #### [facility] [address] [place] [address] Dr. Walker Gabriel IG % 0.4 % Normal 0.0-0.[address] [facility] Comment on above: Performed By: #### T SH, LIPID, CMP, URIC, T7, CRP #### [facility] [address] [place] [address] Dr. Walker Gabriel LYMPH # 2.6 103/ul Normal 1.2-3.[address] [facility] Comment on above: Performed By: #### T SH, LIPID, CMP, URIC, T7, CRP #### [facility] [address] [place] [address] Dr. Walker Gabriel Lymphocytes/100 WBC (Bld) 35.5 % Normal 20.5-60.0 [facility] Comment on above: Performed By: #### T SH, LIPID, CMP, URIC, T7, CRP #### [facility] [address] [place] [address] Dr. Walker Gabriel MANUAL DIFF REQ NO Normal [facility] Comment on above: Performed By: #### T SH, LIPID, CMP, URIC, T7, CRP #### [facility] [address] [place] [address] Dr. Walker Gabriel MCH (RBC) [Entitic mass] 28.7 pg Normal 26.7-34.[address] [facility] Comment on above: Performed By: #### T SH, LIPID, CMP, URIC, T7, CRP #### [facility] [address] [place] [address] Dr. Walker Gabriel MCHC (RBC) [Mass/Vol] 32.3 g/dL Normal 29.9-35.2 [facility] Comment on above: Performed By: #### T SH, LIPID, CMP, URIC, T7, CRP #### [facility] [address] [place] [address] Dr. Walker Gabriel MCV (RBC) [Entitic vol] 88.8 fL Normal 81.0-99.[address] [facility] Comment on above: Performed By: #### T SH, LIPID, CMP, URIC, T7, CRP #### [facility] [address] [place] [address] Dr. Walker Gabriel MONO # 0.4 103/ul Normal 0.3-0.[address] [facility] Comment on above: Performed By: #### T SH, LIPID, CMP, URIC, T7, CRP #### [facility] [address] [place] [address] Dr. Walker Gabriel Monocytes/100 WBC (Bld) 6.1 % Normal 1.7-12.[address] [facility] Comment on above: Performed By: #### T SH, LIPID, CMP, URIC, T7, CRP #### [facility] [address] [place] [address] Dr. Walker Gabriel NEUT # 4.0 103/ul Normal 1.4-6.[address] [facility] Comment on above: Performed By: #### T SH, LIPID, CMP, URIC, T7, CRP #### [facility] [address] [place] [address] Dr. Walker Gabriel Neutrophils/100 WBC (Bld) 56.2 % Normal 43.0-75.[address] [facility] Comment on above: Performed By: #### T SH, LIPID, CMP, URIC, T7, CRP #### [facility] [address] [place] [address] Dr. Walker Gabriel Platelet mean volume (Bld) [Entitic vol] 8.3 fL Critically low 9.5-13.[address] [facility] Comment on above: Performed By: #### T SH, LIPID, CMP, URIC, T7, CRP #### [facility] [address] [place] [address] Dr. Walker Gabriel PLT 328 103/ul Normal 150-[address] [facility] Comment on above: Performed By: #### T SH, LIPID, CMP, URIC, T7, CRP #### [facility] [address] [address] [address] Walker Gabriel RBC 4.29 106/ul Normal 4.20-5.40 [facility] Comment on above: Performed By: #### T SH, LIPID, CMP, URIC, T7, CRP #### [facility] [address] [address] [address] Walker Gabriel WBC 7.2 103/ul Normal 4.0-11.0 [facility] Comment on above: Performed By: #### T SH, LIPID, CMP, URIC, T7, CRP #### [facility] [address] [address] [address] Walker Gabriel CRPon 04-18-2022 CRP 1.3 mg/dL Critically high <=1.0 [facility] Comment on above: Performed By: #### T SH, LIPID, CMP, URIC, T7, CRP #### [facility] [address] [place] [address] Dr. Walker Gabriel FREE THYROXINE INDEX T7on FTI 2.91 Normal 1.30-4.50 [facility] Comment on above: Performed By: #### T SH, LIPID, CMP, URIC, T7, CRP #### [facility] [address] [address] [address] Walker Gabriel T3U 31.0 % Normal 30.0-39.0 [facility] Comment on above: Performed By: #### T SH, LIPID, CMP, URIC, T7, CRP #### [facility] [address] [address] [address] Walker Gabriel T4 [Mass/Vol] 9.40 ug/dL Normal 4.80-13.90 [facility] Comment on above: Performed By: #### T SH, LIPID, CMP, URIC, T7, CRP #### [facility] [address] [place] [address] Dr. Walker Gabriel GLYCOHEMOGLOBIN A1Con 2021 ADA RECOMMENDATION SEE BELOW Normal [facility] Comment on above: Result Comment: ADA RECOMMENDED LIMIT 4.0 - 6.0 ADA THERAPEUTIC TARGET < 7.0 ACTION SUGGESTED > 7.0 Performed By: #### T SH, LIPID, CMP, URIC, T7, CRP #### [facility] [address] [address] [address] Walker Gabriel Glucose [Mass/Vol] 114 mg/dL Normal [facility] Comment on above: Performed By: #### T SH, LIPID, CMP, URIC, T7, CRP #### [facility] [address] [address] [address] Walker Gabriel HbA1c (Bld) [Mass fraction] 5.6 % Normal 4.5-6.2 [facility] Comment on above: Performed By: #### T SH, LIPID, CMP, URIC, T7, CRP #### [facility] [address] [place] [address] Dr. Walker Gabriel IRONon 04-18-2022 Iron [Mass/Vol] 34.0 ug/dL Critically low 50.0-170.0 [facility] Comment on above: Performed By: #### I FRANCISCO #### [facility] [address] [place] [address] Dr. Walker Gabriel LIPID PROFILEon 04-18-2022 CHOL-HDL RATIO NORM SEE BELOW Normal [facility] Comment on above: Result Comment: 3.3 - 4.4 LOW RISK 4.4 - 7.1 AVERAGE RISK 7.1 - 11.0 MODERATE RISK >11.0 HIGH RISK Performed By: #### T SH, LIPID, CMP, URIC, T7, CRP #### [facility] [address] [place] [address] Dr. Walker Gabriel Cholesterol [Mass/Vol] 174 mg/dL Normal <=200 [facility] Comment on above: Performed By: #### T SH, LIPID, CMP, URIC, T7, CRP #### [facility] [address] [place] [address] Dr. Walker Gabriel Cholesterol in HDL [Mass/Vol] 70 mg/dL Critically high 40-60 [facility] Comment on above: Performed By: #### T SH, LIPID, CMP, URIC, T7, CRP #### [facility] [address] [place] [address] Dr. Walker Gabriel Cholesterol in LDL [Mass/Vol] 92.8 mg/dL Normal [facility] Comment on above: Performed By: #### T SH, LIPID, CMP, URIC, T7, CRP #### [facility] [address] [address] [address] Walker Gabriel Cholesterol.total/Ch olesterol in HDL [Mass ratio] 2.5 {ratio} Normal [facility] Comment on above: Performed By: #### T SH, LIPID, CMP, URIC, T7, CRP #### [facility] [address] [address] [address] Walker Gabriel HDL NORMAL > or = 60 mg/dl - LO W CARDIOVASCULAR RISK <40 mg/dl - HIGH CARDIOVASCULAR RISK Normal [facility] Comment on above: Performed By: #### T SH, LIPID, CMP, URIC, T7, CRP #### [facility] [address] [place] [address] Dr. Walker Gabriel LDL CALC NORMAL SEE BELOW Normal [facility] Comment on above: Result Comment: <100 mg/dl OPTIMAL 100 - 129 mg/dl NEAR OR ABOVE OPTIMAL 130 - 159 mg/dl BORDERLINE HIGH 160 - 189 mg/dl HIGH >190 mg/dl VERY HIGH Performed By: #### T SH, LIPID, CMP, URIC, T7, CRP #### [facility] [address] [address] [address] Walker Gabriel Triglyceride [Mass/Vol] 56 mg/dL Normal <=150 [facility] Comment on above: Performed By: #### T SH, LIPID, CMP, URIC, T7, CRP #### [facility] [address] [address] [address] Walker Gabriel VLDL CALC 11.2 mg/dL Normal [facility] Comment on above: Performed By: #### T SH, LIPID, CMP, URIC, T7, CRP #### [facility] [address] [address] [address] Walker Gabriel PROF 14(COMP METB)on 04-18- 022 Albumin [Mass/Vol] 3.0 g/dL Critically low 3.4-5.0 [facility] Comment on above: Performed By: #### T SH, LIPID, CMP, URIC, T7, CRP #### [facility] [address] [place] [address] Dr. Walker Gabriel Albumin/Globulin [Mass ratio] 0.6 {ratio} Normal [facility] Comment on above: Performed By: #### T SH, LIPID, CMP, URIC, T7, CRP #### [facility] [address] [place] [address] Dr. Walker Gabriel ALP [Catalytic activity/Vol] 102 U/L Normal 46-116 [facility] Comment on above: Performed By: #### T SH, LIPID, CMP, URIC, T7, CRP #### [facility] [address] [place] [address] Dr. Walker Gabriel ALT [Catalytic activity/Vol] 19 U/L Normal 14-59 [facility] Comment on above: Performed By: #### T SH, LIPID, CMP, URIC, T7, CRP #### [facility] [address] [place] [address] Dr. Walker Gabriel Anion gap [Moles/Vol] 7.9 mmol/L Normal [facility] Comment on above: Performed By: #### T SH, LIPID, CMP, URIC, T7, CRP #### [facility] [address] [place] [address] Dr. Walker Gabriel AST [Catalytic activity/Vol] 12 U/L Critically low 15-37 [facility] Comment on above: Performed By: #### T SH, LIPID, CMP, URIC, T7, CRP #### [facility] [address] [place] [address] Dr. Walker Gabriel Bilirubin [Mass/Vol] 0.1 mg/dL Critically low 0.2-1.0 [facility] Comment on above: Performed By: #### T SH, LIPID, CMP, URIC, T7, CRP #### [facility] [address] [place] [address] Dr. Walker Gabriel Calcium [Mass/Vol] 8.9 mg/dL Normal 8.5-10.1 [facility] Comment on above: Performed By: #### T SH, LIPID, CMP, URIC, T7, CRP #### [facility] [address] [address] [address] Walker Gabriel Chloride [Moles/Vol] 103 mmol/L Normal 98-[address] [facility] Comment on above: Performed By: #### T SH, LIPID, CMP, URIC, T7, CRP #### [facility] [address] [address] [address] Walker Gabriel CO2 [Moles/Vol] 28.4 mmol/L Normal 21.0-32.[address] [facility] Comment on above: Performed By: #### T SH, LIPID, CMP, URIC, T7, CRP #### [facility] [address] [address] [address] Walker Gbariel Creatinine [Mass/Vol] 0.91 mg/dL Normal 0.55-1.02 [facility] Comment on above: Performed By: #### T SH, LIPID, CMP, URIC, T7, CRP #### [facility] [address] [place] [address] Dr. Walker Gabriel EGFR-AF AUSTRIAN >60 Normal >=60 [facility] Comment on above: Performed By: #### T SH, LIPID, CMP, URIC, T7, CRP #### [facility] [address] [place] [address] Dr. Walker Gabriel EGFR-NON AF AUSTRIAN >60 Normal >=60 [facility] Comment on above: Performed By: #### T SH, LIPID, CMP, URIC, T7, CRP #### [facility] [address] [address] [address] Walker Gabriel Globulin (S) [Mass/Vol] 4.7 g/dL Normal [facility] Comment on above: Performed By: #### T SH, LIPID, CMP, URIC, T7, CRP #### [facility] [address] [place] [address] Dr. Walker Gabriel Glucose [Mass/Vol] 87 mg/dL Normal 74-106 [facility] Comment on above: Performed By: #### T SH, LIPID, CMP, URIC, T7, CRP #### [facility] [address] [place] [address] Dr. Wlaker Gabriel Potassium [Moles/Vol] 4.3 mmol/L Normal 3.5-5.1 [facility] Comment on above: Performed By: #### T SH, LIPID, CMP, URIC, T7, CRP #### [facility] [address] [place] [address] Dr. Walker Gabriel Protein [Mass/Vol] 7.7 g/dL Normal 6.4-8.2 [facility] Comment on above: Performed By: #### T SH, LIPID, CMP, URIC, T7, CRP #### [facility] [address] [place] [address] Dr. Walker Gabriel Sodium [Moles/Vol] 135 mmol/L Critically low 136-145 [facility] Comment on above: Performed By: #### T SH, LIPID, CMP, URIC, T7, CRP #### [facility] [address] [place] [address] Dr. Walker Gabriel Urea nitrogen [Mass/Vol] 21.0 mg/dL Critically high 7.0-18.0 [facility] Comment on above: Performed By: #### T SH, LIPID, CMP, URIC, T7, CRP #### [facility] [address] [place] [address] Dr. Walker Gabriel Urea nitrogen/Creatinine [Mass ratio] 23.1 mg/mg Normal [facility] Comment on above: Performed By: #### T SH, LIPID, CMP, URIC, T7, CRP #### [facility] [address] [place] [address] Dr. Walker Gabriel TSHon 04-18-2022 TSH 2.570 uIU/mL Normal 0.358-3.740 [facility] Comment on above: Performed By: #### T SH, LIPID, CMP, URIC, T7, CRP #### [facility] [address] [place] [address] Dr. Walker Gabriel URIC ACID SERUMon 04-18-2022 Urate [Mass/Vol] 5.7 mg/dL Normal 2.6-6.[address] [facility] Comment on above: Performed By: #### T SH, LIPID, CMP, URIC, T7, CRP #### [facility] [address] [address] [address] Walker Gabriel US VENOUS DOPPLER L [...] by: JENNY ARIAS Date: 2022-04-18 18:43 Normal [facility] Clinical Supporton Clinical Support [id number] Rebecca Jewell 1985 [facility] Provider Department [place] 04/17/2022 MARISA SIMON [facility] No family history on file Reason for Visit and Comments: Worker's Compensation [732] Follow-up [141109] Concussion [890819] Normal [facility] Follow-Upon 04-03-2022 Follow-Up [id number] Rebecca Jewell 1985 [facility] Provider Department [place] 04/03/2022 260RUFINO MAY MP [facility] Close Cosign Required by: Rufino Perdomo MD[[id number]] No family history on file Level of Service:13474 RI OFFICE/OUTPATIENT ESTABLISHED LOW MDM 20-29 MIN (GC) Reason for Visit and Comments: Pain [136] Edema [[id number]] Follow-up [106340] Normal [facility] Erroneous Encounteron 2021 Erroneous Encounter [id number] Rebecca Jewell 1985 [facility] Provider Department [place] 03/31/2022 [id number] ERNANDEZ formerly [facility] No family history on file Reason for Visit and Comments: Error (VOID this visit) [77] Normal [facility] CNOVon 02-03-2022 CNOV Office Visit (NMUA ) NABILA JEWELL ([id number]) 1985 F Date Time Provider Department 02/03/22 11:00 AM CHAS ROMERO During your visit today, we recorded the following information about you: Pulse Blood pressure Weight Height 66/minute 117/84 122.7 kg 1.549 m Chas Romero DO 02/03/2022 11:27 AM Signed [facility] Follow up Visit SERVICE DATE: 02/03/2022 PCP: [place] [address] [place] [address] Reason for Evaluation: Consultation requested by Self for an opinion regarding right leg weakness Family/Friend accompanying the patient today: none HPI: This is Ms. Nabila Jewell, a 36 year old female who presents to the [facility] with the chief complaint above. 02/03/2022: [...] get up after this. She went to [facility] in [place]. She was evaluated and did testing and [...] VIII: He (more content not included)... Normal [facility] 01-30-2022 [facility] Telephone (NEURST) NABILA JEWELL ([id number]) 1985 F Date Time Provider Department 01/30/22 [...] Status:Closed by CHAS ROMERO on 01/30/22 Normal [facility] MRI KNEE LT WO CONon 022 [...] by: SMILEY CALVILLO Date: 2022-01-28 12:18 Normal [facility] EMG(NEURO/NI)on 01-23-2022 [facility] MG MAMM DIAGNOSTIC 3D GREGORY CA Don 01-22-2022 MG MAMM DIAGNOSTIC 3D GREGORY CAD Patient: NABILA JEWELL. Exam Date: 01/22/2022 : 1985 Gender:F Ordering : DR SMILEY URIAS . Admission #: [id number] Family : Order #: [id number] CLICK HERE TO VIEW EXAM RADIOLOGY REPORT [...] Treatments None Family Cancers None LOCATION: [facility] BREAST COMPOSITION: Scattered areas fibroglandular density. FINDINGS: [...] Gamble M.D. on 01/22/2022 at 15:30 Normal [facility] FANTATAJNABILA M ([id number]) 1985 F Date Time Provider Department 12/06/21 [...] Fully Assessed Reason for Visit: Insurance Authorization [2023] Prescriptions as of 12/08/2021 - potassium chloride [...] Encounter Status:Closed by SKY RAPP on 12/06/21 [facility] 11-15-2021 [facility] NABILA JWEELL ([id number]) 1985 F Date Time Provider Department 11/15/21 CHAS ROMERO [facility] During your visit today, we recorded the following information about you: Rosana Shaw 11/15/2021 10:02 AM Addendum Pt requesting Dr. Romero send in C9 to workers comp for EMG. Cecilyiva phone [phone] ext [phone] Kassy PLEASE FAX TO:[phone] Also needs this faxed to city attorney [place], [place] [employer] and [employer]. LPA2 Pt will call back with [...] Encounter Status:Closed by ROSANA VALVERDE on 04/03/22 [facility] CNOVon 11-12-2021 CNOV Office Visit (NMUAMH ) NABILA JEWELL ([id number]) 1985 F Date Time Provider Department 11/12/21 2:00 PM CHAS ROMERO [facility] During your visit today, we recorded the following information about you: Pulse Blood pressure Weight Height 69/minute 120/82 118.6 kg 1.549 m Chas Romero DO 11/12/2021 2:58 PM Signed [facility] New Patient Visit SERVICE DATE: 11/12/2021 PCP: Smiley Urias MD [address] [place] [address] Reason for Evaluation: Consultation requested by Self for an opinion regarding right leg weakness Family/Friend accompanying the patient today: none HPI: This is Ms. Nabila Jewell, a 36 year old female who presents to the [facility] with the chief complaint above. She had an injury at work (March 2021)-she fell and hit her head on a prep table and fell onto her knee. She had difficulty moving to get up after this. She went to [facility] in [place]. She was evaluated and did testing and [...] - FDI (more content not included)... [facility] NABILA JEWELL ([id number]) 1985 F Date Time Provider Department 10/22/21 CHAS ROMERO NEUT[facility] During your visit today, we recorded the following information about you: Sky Rapp 10/22/2021 10:54 AM Signed Referral, medical records received and scanned in for review. Allergies As of Date: 10/22/2021 (No Known Allergies) Date Reviewed: 06/14/2015 Reviewed by: Marly Fitzpatrick - Fully Assessed Reason for Visit: Received Outside Medical Records [4833] Prescriptions as of 10/22/2021 - Hydrochlorothiazide 12.5 [...] Status:Closed by SKY RAPP on 10/22/21 Normal [facility] CARDIAC MACIE 3-6on 2 CK [Catalytic activity/Vol] 135 U/L Normal 30-135 [facility] Comment on above: Performed By: #### C MREP #### [facility] [address] [place] [address] Dr. Walker Gabriel CK.MB [Mass/Vol] 0.84 ng/mL Normal <=2.37 [facility] Comment on above: Performed By: #### C MREP #### [facility] [address] [address] [address] Walker Gabriel HSTROP 8.5 pg/mL Normal 4.0-35.5 [facility] Comment on above: Result Comment: CUT- OFF POINTS HAVE BEEN ESTABLISHED BASED ON THE FOURTH UNIVERSAL DEFINITIONS OF MYOCARDIAL INFARCTION. THE UPPER REFERENCE LIMIT (URL) OF TROPONIN, DEFINED THE 99TH PERCENTILE OF cTnI DISTRIBUTION IN A REFERENCE POPULATION, HAS BEEN CONFIRMED THE DECISION THRESHOLD FOR MS DIAGNOSIS. Performed By: #### C MREP #### [facility] [address] [address] [address] Walker Gabriel CARDIAC MACIE ADMITon 022 CK [Catalytic activity/Vol] 114 U/L Normal 30-[address] [facility] Comment on above: Performed By: #### T SH, LIPID, CMP, URIC, T7, CRP #### [facility] [address] [place] [address] Dr. Walker Gabriel CK.MB [Mass/Vol] 0.71 ng/mL Normal <=2.37 [facility] Comment on above: Performed By: #### T SH, LIPID, CMP, URIC, T7, CRP #### [facility] [address] [place] [address] Dr. Walker Gabriel HSTROP 6.1 pg/mL Normal 4.0-35.[address] [facility] Comment on above: Result Comment: CUT- OFF POINTS HAVE BEEN ESTABLISHED BASED ON THE FOURTH UNIVERSAL DEFINITIONS OF MYOCARDIAL INFARCTION. THE UPPER REFERENCE LIMIT (URL) OF TROPONIN, DEFINED THE 99TH PERCENTILE OF cTnI DISTRIBUTION IN A REFERENCE POPULATION, HAS BEEN CONFIRMED THE DECISION THRESHOLD FOR MS DIAGNOSIS. Performed By: #### T SH, LIPID, CMP, URIC, T7, CRP #### [facility] [address] [place] [address] Dr. Walker Gabriel COLLINS 43.0 ng/mL Normal <=61.[address] [facility] Comment on above: Performed By: #### T SH, LIPID, CMP, URIC, T7, CRP #### [facility] [address] [place] [address] Dr. Walker Gabriel CBC AUTO DIFFon 09-06-2021 BASO # 0.0 103/ul Normal 0.0-0.[address] [facility] Comment on above: Performed By: #### T SH, LIPID, CMP, URIC, T7, CRP #### [facility] [address] [place] [address] Dr. Walker Gabriel Basophils/100 WBC (Bld) 0.5 % Normal 0.2-2.[address] [facility] Comment on above: Performed By: #### T SH, LIPID, CMP, URIC, T7, CRP #### [facility] [address] [place] [address] Dr. Walker Gabriel EO # 0.0 103/ul Normal 0.0-0.[address] [facility] Comment on above: Performed By: #### T SH, LIPID, CMP, URIC, T7, CRP #### [facility] [address] [address] [address] Walker Gabriel Eosinophils/100 WBC (Bld) 0.1 % Critically low 0.9-7.[address] [facility] Comment on above: Performed By: #### T SH, LIPID, CMP, URIC, T7, CRP #### [facility] [address] [place] [address] Dr. Walker Gabriel Erythrocyte distribution width (RBC) [Ratio] 12.3 % Normal 11.0-15.[address] [facility] Comment on above: Performed By: #### T SH, LIPID, CMP, URIC, T7, CRP #### [facility] [address] [place] [address] Dr. Walker Gabriel Hematocrit (Bld) [Volume fraction] 41.4 % Normal 36.0-48.[address] [facility] Comment on above: Performed By: #### T SH, LIPID, CMP, URIC, T7, CRP #### [facility] [address] [place] [address] Dr. Walker Gabriel Hemoglobin (Bld) [Mass/Vol] 13.6 g/dL Normal 12.0-16.[address] [facility] Comment on above: Performed By: #### T SH, LIPID, CMP, URIC, T7, CRP #### [facility] [address] [place] [address] Dr. Walker Gabriel IG # 0.02 10e3/ul Normal 0.00-0.[address] [facility] Comment on above: Performed By: #### T SH, LIPID, CMP, URIC, T7, CRP #### [facility] [address] [place] [address] Dr. Walker Gabriel IG % 0.2 % Normal 0.0-0.[address] [facility] Comment on above: Performed By: #### T SH, LIPID, CMP, URIC, T7, CRP #### [facility] [address] [place] [address] Dr. Walker Gabriel LYMPH # 2.6 103/ul Normal 1.2-3.[address] [facility] Comment on above: Performed By: #### T SH, LIPID, CMP, URIC, T7, CRP #### [facility] [address] [place] [address] Dr. Walker Gabriel Lymphocytes/100 WBC (Bld) 32.4 % Normal 20.5-60.[address] [facility] Comment on above: Performed By: #### T SH, LIPID, CMP, URIC, T7, CRP #### [facility] [address] [place] [address] Dr. Walker Gabriel MANUAL DIFF REQ NO Normal [facility] Comment on above: Performed By: #### T SH, LIPID, CMP, URIC, T7, CRP #### [facility] [address] [place] [address] Dr. Walker Gabriel MCH (RBC) [Entitic mass] 28.8 pg Normal 26.7-34.[address] [facility] Comment on above: Performed By: #### T SH, LIPID, CMP, URIC, T7, CRP #### [facility] [address] [place] [address] Dr. Walker Gabriel MCHC (RBC) [Mass/Vol] 32.9 g/dL Normal 29.9-35.[address] [facility] Comment on above: Performed By: #### T SH, LIPID, CMP, URIC, T7, CRP #### [facility] [address] [place] [address] Dr. Walker Gabriel MCV (RBC) [Entitic vol] 87.5 fL Normal 81.0-99.[address] [facility] Comment on above: Performed By: #### T SH, LIPID, CMP, URIC, T7, CRP #### [facility] [address] [place] [address] Dr. Walker Gabriel MONO # 0.4 103/ul Normal 0.3-0.[address] [facility] Comment on above: Performed By: #### T SH, LIPID, CMP, URIC, T7, CRP #### [facility] [address] [place] [address] Dr. Walker Gabriel Monocytes/100 WBC (Bld) 5.0 % Normal 1.7-12.0 [facility] Comment on above: Performed By: #### T SH, LIPID, CMP, URIC, T7, CRP #### [facility] [address] [address] [address] Walker Gabriel NEUT # 5.0 103/ul Normal 1.4-6.5 [facility] Comment on above: Performed By: #### T SH, LIPID, CMP, URIC, T7, CRP #### [facility] [address] [place] [address] Dr. Walker Gabriel Neutrophils/100 WBC (Bld) 61.8 % Normal 43.0-75.[address] [facility] Comment on above: Performed By: #### T SH, LIPID, CMP, URIC, T7, CRP #### [facility] [address] [place] [address] Dr. Walker Gabriel Platelet mean volume (Bld) [Entitic vol] 8.4 fL Critically low 9.5-13.5 [facility] Comment on above: Performed By: #### T SH, LIPID, CMP, URIC, T7, CRP #### [facility] [address] [place] [address] Dr. Walker Gabriel PLT 347 103/ul Normal 150-[address] [facility] Comment on above: Performed By: #### T SH, LIPID, CMP, URIC, T7, CRP #### [facility] [address] [place] [address] Dr. Walker Gabriel RBC 4.73 106/ul Normal 4.20-5.[address] [facility] Comment on above: Performed By: #### T SH, LIPID, CMP, URIC, T7, CRP #### [facility] [address] [place] [address] Dr. Walker Gabriel WBC 8.1 103/ul Normal 4.0-11.[address] [facility] Comment on above: Performed By: #### T SH, LIPID, CMP, URIC, T7, CRP #### [facility] [address] [place] [address] Dr. Walker Gabriel CRPon 09-06-2021 CRP 0.7 mg/dL Normal <=1.[address] [facility] Comment on above: Performed By: #### T SH, LIPID, CMP, URIC, T7, CRP #### [facility] [address] [address] [address] Walker Gabriel PROF CHEM 8 (BAS METB)on Anion gap [Moles/Vol] 10.2 mmol/L Normal [facility] Comment on above: Performed By: #### T SH, LIPID, CMP, URIC, T7, CRP #### [facility] [address] [address] [address] Walker Gabriel Calcium [Mass/Vol] 9.0 mg/dL Normal 8.4-10.2 [facility] Comment on above: Performed By: #### T SH, LIPID, CMP, URIC, T7, CRP #### [facility] [address] [address] [address] Walker Gabriel Chloride [Moles/Vol] 99 mmol/L Normal 98-[address] [facility] Comment on above: Performed By: #### T SH, LIPID, CMP, URIC, T7, CRP #### [facility] [address] [address] [address] Walker Gabriel CO2 [Moles/Vol] 26.5 mmol/L Normal 22.0-30.0 [facility] Comment on above: Performed By: #### T SH, LIPID, CMP, URIC, T7, CRP #### [facility] [address] [address] [address] Walker Gabriel Creatinine [Mass/Vol] 1.19 mg/dL Critically high 0.52-1.04 [facility] Comment on above: Performed By: #### T SH, LIPID, CMP, URIC, T7, CRP #### [facility] [address] [address] [address] Walker Gabriel EGFR-AF AUSTRIAN >60 Normal >=60 [facility] Comment on above: Performed By: #### T SH, LIPID, CMP, URIC, T7, CRP #### [facility] [address] [address] [address] Walker Gabriel EGFR-NON AF AUSTRIAN 51 mL/min/1.73m2 Critically low >=60 [facility] Comment on above: Performed By: #### T SH, LIPID, CMP, URIC, T7, CRP #### [facility] [address] [address] [address] Walker Gabriel Glucose [Mass/Vol] 105 mg/dL Normal 74-106 [facility] Comment on above: Performed By: #### T SH, LIPID, CMP, URIC, T7, CRP #### [facility] [address] [place] [address] Dr. Walker Gabriel Potassium [Moles/Vol] 3.7 mmol/L Normal 3.4-5.0 [facility] Comment on above: Performed By: #### T SH, LIPID, CMP, URIC, T7, CRP #### [facility] [address] [place] [address] Dr. Walker Gabriel Sodium [Moles/Vol] 132 mmol/L Critically low 137-145 [facility] Comment on above: Performed By: #### T SH, LIPID, CMP, URIC, T7, CRP #### [facility] [address] [place] [address] Dr. Wakler Gabriel Urea nitrogen [Mass/Vol] 15.0 mg/dL Normal 7.0-17.0 [facility] Comment on above: Performed By: #### T SH, LIPID, CMP, URIC, T7, CRP #### [facility] [address] [place] [address] Dr. Walker Gabriel Urea nitrogen/Creatinine [Mass ratio] 12.6 mg/mg Normal [facility] Comment on above: Performed By: #### T SH, LIPID, CMP, URIC, T7, CRP #### [facility] [address] [place] [address] Dr. Walker Gabriel SED RATE [facility] 2021 SED RATE 49 mm/hr Critically high <=20 [facility] Comment on above: Performed By: #### T SH, LIPID, CMP, URIC, T7, CRP #### [facility] [address] [place] [address] Dr. Walker Gabriel XR CHEST 2 Von [...] by: CANDICE PONCE Date: 2021-09-06 20:51 Normal [facility] Letter [facility] April 09, 2021 Smiley Urias, [address] [place] [address] [address] [place] [address] Re: NABILA JEWELL Date of : 1985 Thank you for your referral of Nabila Jewell who was seen on consultation for abscess x 2. I have enclosed my consultation note for your review. Sincerely, Edson Davalos MD General Surgery Normal [facility] Facesheeton 04-08-2021 Facesheet [id number]:127 Normal [facility] Ambulatory Clinical Summaryo n 04-03-2021 Ambulatory Clinical Summary {[id number] }[id number] Normal [facility] Physician Referralon 021 Physician Referral [id number] 0CD:127 Normal [facility] SYPHILIS SCREENING WITH REFL EXon 03-06-2021 SYPHILIS TOTAL AB Non-Reactive Normal NONREACTIVE [facility] Comment on above: Result Comment: No s ignificant level of Treponema pallidum antibody detected. Repeat testing in 2 to 4 weeks may be considered if early infection or incubating syphilis infection is suspected. Performed By: #### S YPHR #### [facility] [address] [place] [address] BILIRUBIN,DIRECTon Bilirubin.indirect [Mass/Vol] 0.1 mg/dL Normal 0.0 - 0.3 [facility] Comment on above: Performed By: #### D BILI #### [address] [id number] CBC AND DIFFERENTIALon 03-05 % AUTOMATED IMMATURE GRAN 0.3 % Normal 0.0 - 0.9 [facility] Comment on above: Result Comment: Cassia ture Granulocyte Count (IG) includes promyelocytes, myelocytes and metamyelocytes but does not include bands. Percent differential counts (%) should be interpreted in the context of the absolute cell counts (cells/L). Performed By: #### C BCDF #### [address] [id number] Basophils (Bld) [#/Vol] 0.02 10*3/uL Normal 0.00 - 0.10 [facility] Comment on above: Performed By: #### C BCDF #### [address] [id number] Basophils/100 WBC (Bld) 0.3 % Normal 0.0 - 2.0 [facility] Comment on above: Performed By: #### C BCDF #### [address] [id number] Eosinophils (Bld) [#/Vol] 0.04 10*3/uL Normal 0.00 - 0.70 [facility] Comment on above: Performed By: #### C BCDF #### [address] [id number] Eosinophils/100 WBC (Bld) 0.6 % Normal 0.0 - 6.0 [facility] Comment on above: Performed By: #### C BCDF #### [address] [id number] Erythrocyte distribution width (RBC) [Ratio] 12.2 % Normal 11.5 - 14.5 [facility] Comment on above: Performed By: #### C BCDF #### [address] [id number] Hematocrit (Bld) [Volume fraction] 38.3 % Normal 36.0 - 46.0 [facility] Comment on above: Performed By: #### C BCDF #### [address] [id number] Hemoglobin (Bld) [Mass/Vol] 12.0 g/dL Normal 12.0 - 16.0 [facility] Comment on above: Performed By: #### C BCDF #### [address] [id number] Lymphocytes (Bld) [#/Vol] 2.33 10*3/uL Normal 1.20 - 4.80 [facility] Comment on above: Performed By: #### C BCDF #### [address] [id number] Lymphocytes/100 WBC (Bld) 35.6 % Normal 13.0 - 44.0 [facility] Comment on above: Performed By: #### C BCDF #### [address] [id number] MCHC (RBC) [Mass/Vol] 31.3 g/dL Low 32.0 - 36.0 [facility] Comment on above: Performed By: #### C BCDF #### [address] [id number] MCV (RBC) [Entitic vol] 93 fL Normal 80 - 100 [facility] Comment on above: Performed By: #### C BCDF #### [address] [id number] Monocytes (Bld) [#/Vol] 0.34 10*3/uL Normal 0.10 - 1.00 [facility] Comment on above: Performed By: #### C BCDF #### [address] [id number] Monocytes/100 WBC (Bld) 5.2 % Normal 2.0 - 10.0 [facility] Comment on above: Performed By: #### C BCDF #### [address] [id number] Neutrophils (Bld) [#/Vol] 3.80 10*3/uL Normal 1.20 - 7.70 [facility] Comment on above: Performed By: #### C BCDF #### [address] [id number] Neutrophils/100 WBC (Bld) 58.0 % Normal 40.0 - 80.0 [facility] Comment on above: Performed By: #### C BCDF #### [address] [id number] Platelets (Bld) [#/Vol] 221 10*3/uL Normal 150 - 450 [facility] Comment on above: Performed By: #### C BCDF #### [address] [id number] RBC 4.13 x10E12/L Normal 4.00 - 5.20 [facility] Comment on above: Performed By: #### C BCDF #### [address] [id number] WBC (Bld) [#/Vol] 6.6 10*3/uL Normal 4.4 - 11.3 [facility] Comment on above: Performed By: #### C BCDF #### [address] [id number] COMPREHENSIVE PANELon 2020 Albumin [Mass/Vol] 3.6 g/dL Normal 3.4 - 5.0 [facility] Comment on above: Performed By: #### C MP #### [address] [id number] ALP [Catalytic activity/Vol] 77 U/L Normal 33 - 110 [facility] Comment on above: Performed By: #### C MP #### [address] [id number] ALT [Catalytic activity/Vol] 20 U/L Normal 7 - 45 [facility] Comment on above: Result Comment: Cony ents treated with Sulfasalazine may generate falsely decreased results for ALT. Performed By: #### C MP #### [address] [id number] Anion gap [Moles/Vol] 10 mmol/L Normal 10 - 20 [facility] Comment on above: Performed By: #### C MP #### [address] [id number] AST [Catalytic activity/Vol] 24 U/L Normal 9 - 39 [facility] Comment on above: Performed By: #### C MP #### [address] [id number] Bilirubin [Mass/Vol] 0.5 mg/dL Normal 0.0 - 1.2 [facility] Comment on above: Performed By: #### C MP #### [address] [id number] Calcium [Mass/Vol] 9.2 mg/dL Normal 8.6 - 10.3 [facility] Comment on above: Performed By: #### C MP #### [address] [id number] Chloride [Moles/Vol] 101 mmol/L Normal 98 - 107 [facility] Comment on above: Performed By: #### C MP #### [address] [id number] Creatinine [Mass/Vol] 0.85 mg/dL Normal 0.50 - 1.05 [facility] Comment on above: Performed By: #### C MP #### [address] [id number] GFR- AM. >60 Normal >60 [facility] Comment on above: Result Comment: CALC ULATIONS OF ESTIMATED GFR ARE PERFORMED USING THE MDRD STUDY EQUATION FOR THE IDMS-TRACEABLE CREATININE METHODS. CLIN CHEM 2007;53:766-72 Performed By: #### C MP #### [address] [id number] GFR-NON AM. >60 Normal >60 [facility] Comment on above: Performed By: #### C MP #### [address] [id number] Glucose [Mass/Vol] 75 mg/dL Normal 74 - 99 [facility] Comment on above: Performed By: #### C MP #### [address] [id number] HCO3 (Bld) [Moles/Vol] 30 mmol/L Normal 21 - 32 [facility] Comment on above: Performed By: #### C MP #### [address] [id number] Potassium [Moles/Vol] 4.1 mmol/L Normal 3.5 - 5.3 [facility] Comment on above: Performed By: #### C MP #### [address] [id number] Protein [Mass/Vol] 7.0 g/dL Normal 6.4 - 8.2 [facility] Comment on above: Performed By: #### C MP #### [address] [id number] Sodium [Moles/Vol] 137 mmol/L Normal 136 - 145 [facility] Comment on above: Performed By: #### C MP #### [address] [id number] Urea nitrogen [Mass/Vol] 21 mg/dL Normal 6 - 23 [facility] Comment on above: Performed By: #### C MP #### [address] [id number] HEPATITIS PANEL,ACUTE (HCFA) on 03-05-2021 HEPATITIS B CORE AB,IGM Non-Reactive Normal NONREACTIVE [facility] Comment on above: Result Comment: Resu lts from patients taking biotin supplements or receiving high-dose biotin therapy should be interpreted with caution due to possible interference with this test. Providers may contact their local laboratory for further information. Performed By: #### H EPA2 #### [facility] [address] [place] [address] HEPATITIS C AB Non-Reactive Normal NONREACTIVE [facility] Comment on above: Result Comment: Resu lts from patients taking biotin supplements or receiving high-dose biotin therapy should be interpreted with caution due to possible interference with this test. Providers may contact their local laboratory for further information. Performed By: #### H EPA2 #### [facility] [address] [place] [id number] HEPATITIS A AB-IGM Non-Reactive Normal NONREACTIVE [facility] Comment on above: Result Comment: Biot in interference may cause falsely decreased results. Patients taking a Biotin dose of up to 5 mg/day should refrain from taking Biotin for 24 hours before sample collection. Providers may contact their local laboratory for further information. Performed By: #### H EPA2 #### [facility] [address] [place] [id number] HEP.B SURFACE AG Non-Reactive Normal NONREACTIVE [facility] Comment on above: Result Comment: Biot in interference may cause falsely decreased results. Patients taking a Biotin dose of up to 5 mg/day should refrain from taking Biotin for 24 hours before sample collection. Providers may contact their local laboratory for further information. Performed By: #### H EPA2 #### [facility] [address] [place] [id number] HIV 1/2 ANTIGEN/ANTIBODY SCR EEN WITH REFLEX TO CONFIRMATIONon 03-05-2021 HIV 1/2 AG/AB SCREEN Non-Reactive Normal NONREACTIVE [facility] Comment on above: Result Comment: HIV [...] load). Performed By: #### H IV #### [facility] [address] [place] [address] SYPHILIS SCREENING WITH REFL EXon 03-05-2021 Lab Specimen Source Normal [facility] Comment on above: Performed By: #### S YPHR #### [facility] [address] [place] [address] Performed By: #### H EPA2 #### [facility] [address] [place] [address] Performed By: #### H IV #### [facility] [address] [place] [address] HEPATITIS PANEL,ACUTE (HCFA) on 02-29-2020 HEPATITIS A AB-IGM NONREACTIVE Normal NONREACTIVE [facility] Comment on above: Result Comment: Biot in interference may cause falsely decreased results. Patients taking a Biotin dose of up to 5 mg/day should refrain from taking Biotin for 24 hours before sample collection. Providers may contact their local laboratory for further information. Performed By: #### H EPA2 #### [facility] [address] [place] [address] HEPATITIS C AB NONREACTIVE Normal NONREACTIVE [facility] Comment on above: Result Comment: Resu lts from patients taking biotin supplements or receiving high-dose biotin therapy should be interpreted with caution due to possible interference with this test. Providers may contact their local laboratory for further information. Performed By: #### H EPA2 #### [facility] [address] [place] [address] HEPATITIS B CORE AB,IGM NONREACTIVE Normal NONREACTIVE [facility] Comment on above: Result Comment: Resu lts from patients taking biotin supplements or receiving high-dose biotin therapy should be interpreted with caution due to possible interference with this test. Providers may contact their local laboratory for further information. Performed By: #### H EPA2 #### [facility] [address] [place] [address] HEP.B SURFACE AG NONREACTIVE Normal NONREACTIVE [facility] Comment on above: Result Comment: Biot in interference may cause falsely decreased results. Patients taking a Biotin dose of up to 5 mg/day should refrain from taking Biotin for 24 hours before sample collection. Providers may contact their local laboratory for further information. Performed By: #### H EPA2 #### [facility] [address] [place] [id number] HIV ANTIGEN/ANTIBODY SCREENo n 02-29-2020 HIV AG/AB SCREEN NONREACTIVE Normal NONREACTIVE [facility] Comment on above: Result Comment: HIV Ag/Ab screen is performed using the Siemens MedWhat HIV Ag/Ab Combo assay which detects the presence of HIV p24 antigen as well as antibodies to HIV-1 (Group M and O) and HIV-2. Performed By: #### H IV #### [facility] [address] [place] [address] SYPHILIS SCREENING WITH REFL EXon 02-29-2020 SYPHILIS TOTAL AB NONREACTIVE Normal NONREACTIVE [facility] Comment on above: Result Comment: No s ignificant level of Treponema pallidum antibody detected. Repeat testing in 2 to 4 weeks may be considered if early infection or incubating syphilis infection is suspected. Performed By: #### S YPHR #### [facility] [address] [place] [address] BILIRUBIN,DIRECTon 0 Bilirubin.direct [Mass/Vol] 0.1 mg/dL Normal 0.0 - 0.3 [facility] Comment on above: Performed By: #### D BILI #### [address] [id number] CBCon 02-28-2020 Erythrocyte distribution width (RBC) [Ratio] 12.6 % Normal 11.5 - 14.5 [facility] Comment on above: Performed By: #### C BC #### [address] [id number] Hematocrit (Bld) [Volume fraction] 38.4 % Normal 36.0 - 46.0 [facility] Comment on above: Performed By: #### C BC #### [address] [id number] Hemoglobin (Bld) [Mass/Vol] 12.5 g/dL Normal 12.0 - 16.0 [facility] Comment on above: Performed By: #### C BC #### [address] [id number] MCHC (RBC) [Mass/Vol] 32.6 g/dL Normal 32.0 - 36.0 [facility] Comment on above: Performed By: #### C BC #### [address] [id number] MCV (RBC) [Entitic vol] 88 fL Normal 80 - 100 [facility] Comment on above: Performed By: #### C BC #### [address] [id number] Platelets (Bld) [#/Vol] 350 10*3/uL Normal 150 - 450 [facility] Comment on above: Performed By: #### C BC #### [address] [id number] RBC (Bld) [#/Vol] 4.34 x10E12/L Normal 4.00 - 5.20 [facility] Comment on above: Performed By: #### C BC #### [address] [id number] WBC (Bld) [#/Vol] 5.6 10*3/uL Normal 4.4 - 11.3 [facility] Comment on above: Performed By: #### C BC #### [address] [id number] COMPREHENSIVE PANELon 2019 Albumin [Mass/Vol] 4.1 g/dL Normal 3.4 - 5.0 [facility] Comment on above: Performed By: #### C MP #### [address] [id number] ALP [Catalytic activity/Vol] 105 U/L Normal 33 - 110 [facility] Comment on above: Performed By: #### C MP #### [address] [id number] ALT [Catalytic activity/Vol] 24 U/L Normal 7 - 45 [facility] Comment on above: Result Comment: Cony ents treated with Sulfasalazine may generate falsely decreased results for ALT. Performed By: #### C MP #### [address] [id number] Anion gap [Moles/Vol] 10 mmol/L Normal 10 - 20 [facility] Comment on above: Performed By: #### C MP #### [address] [id number] AST [Catalytic activity/Vol] 22 U/L Normal 9 - 39 [facility] Comment on above: Performed By: #### C MP #### [address] [id number] Bilirubin [Mass/Vol] 0.4 mg/dL Normal 0.0 - 1.2 [facility] Comment on above: Performed By: #### C MP #### [address] [id number] Calcium [Mass/Vol] 9.1 mg/dL Normal 8.6 - 10.3 [facility] Comment on above: Performed By: #### C MP #### [address] [id number] Chloride [Moles/Vol] 101 mmol/L Normal 98 - 107 [facility] Comment on above: Performed By: #### C MP #### [address] [id number] Creatinine [Mass/Vol] 0.79 mg/dL Normal 0.50 - 1.05 [facility] Comment on above: Performed By: #### C MP #### [address] [id number] GFR- AM. >60 Normal >60 [facility] Comment on above: Result Comment: CALC ULATIONS OF ESTIMATED GFR ARE PERFORMED USING THE MDRD STUDY EQUATION FOR THE IDMS-TRACEABLE CREATININE METHODS. CLIN CHEM 2007;53:766-72 Performed By: #### C MP #### [address] [id number] GFR-NON AM. >60 Normal >60 [facility] Comment on above: Performed By: #### C MP #### [address] [id number] Glucose [Mass/Vol] 90 mg/dL Normal 74 - 99 [facility] Comment on above: Performed By: #### C MP #### [address] [id number] HCO3 (Bld) [Moles/Vol] 28 mmol/L Normal 21 - 32 [facility] Comment on above: Performed By: #### C MP #### [address] [id number] Potassium [Moles/Vol] 4.4 mmol/L Normal 3.5 - 5.3 [facility] Comment on above: Performed By: #### C MP #### [address] [id number] Protein [Mass/Vol] 8.1 g/dL Normal 6.4 - 8.2 [facility] Comment on above: Performed By: #### C MP #### [address] [id number] Sodium [Moles/Vol] 135 mmol/L Low 136 - 145 [facility] Comment on above: Performed By: #### C MP #### [address] [id number] Urea nitrogen [Mass/Vol] 21 mg/dL Normal 6 - 23 [facility] Comment on above: Performed By: #### C MP #### [address] [id number] SYPHILIS SCREENING WITH REFL EXon 02-28-2020 Lab Specimen Source Normal [facility] Comment on above: Performed By: #### S YPHR #### [facility] [address] [place] [address] Performed By: #### H IV #### [facility] [address] [place] [address] Performed By: #### H EPA2 #### [facility] [address] [place] [address] APTTon 08-13-2017 aPTT 27.9 s Normal 23.2-34.4 [facility] Comment on above: Result Comment: Perf ormed at [address] [place] [address] [phone] Performed By: #### C DP, PT, PTT, BNP, BMP, TROPI ####[address] [place] [address] Basic Metabolic Profon 08-13 (cont.) Normal [facility] Comment on above: Result Comment: Aver age GFR for 30-39 years old: 107 mL/min/1.73sq mChronic Kidney Disease: <60 mL/min/1.73sq mKidney failure: <15 mL/min/1.73sq meGFR calculated using average adult body mass. Additional eGFR calculator available at:http://www.Zentyal/multiple_crcl_2012.htm Performed By: #### C DP, PT, PTT, BNP, BMP, TROPI ####[address] [place] [address] Anion gap 11 mmol/L Normal 9-17 [facility] Comment on above: Performed By: #### C DP, PT, PTT, BNP, BMP, TROPI ####[address] [place] [address] BUN/CRE Ratio 21 High 9-20 [facility] Comment on above: Performed By: #### C DP, PT, PTT, BNP, BMP, TROPI ####[address] [place] [address] Calcium 9.6 mg/dL Normal 8.6-10.4 [facility] Comment on above: Performed By: #### C DP, PT, PTT, BNP, BMP, TROPI ####[address] [place] [address] Chloride 96 mmol/L Low 98-107 [facility] Comment on above: Performed By: #### C DP, PT, PTT, BNP, BMP, TROPI ####[address] [place] [address] CO2 31 mmol/L Normal 20-31 [facility] Comment on above: Performed By: #### C DP, PT, PTT, BNP, BMP, TROPI ####[address] [place] [address] Creatinine 0.73 mg/dL Normal 0.50-0.90 [facility] Comment on above: Performed By: #### C DP, PT, PTT, BNP, BMP, TROPI ####[address] [place] [address] eGFR (non-black) mL/min/{1.73_m2} Normal >60 [facility] Comment on above: Performed By: #### C DP, PT, PTT, BNP, BMP, TROPI ####[address] [place] [address] Glucose mass conc 101 mg/dL High 70-99 [facility] Comment on above: Performed By: #### C DP, PT, PTT, BNP, BMP, TROPI ####[address] [place] [address] Potassium molar conc 3.2 mmol/L Low 3.7-5.3 [facility] Comment on above: Performed By: #### C DP, PT, PTT, BNP, BMP, TROPI ####[address] [place] [address] Sodium 138 mmol/L Normal 135-144 [facility] Comment on above: Performed By: #### C DP, PT, PTT, BNP, BMP, TROPI ####[address] [place] [address] Staging: Normal [facility] Comment on above: Result Comment: Stag e 1: Some kidney damage normal GFRStage 2: Mild kidney damage GFR 60-89Stage 3: Moderate kidney damage GFR 30-59Stage 4: Severe kidney damage GFR 15-29Stage 5: Severe kidney damage GFR <15ESRD - chronic treatment by dialysis or transplantPerformed at [address] [place] [address] Performed By: #### C DP, PT, PTT, BNP, BMP, TROPI ####[address] [place] [address] Urea nitrogen 15 mg/dL Normal 6-20 [facility] Comment on above: Performed By: #### C DP, PT, PTT, BNP, BMP, TROPI ####[address] [place] [address] Brain Natri. Peptideon 08-13 BNP pg/mL Normal <300 [facility] Comment on above: Result Comment: Pro- BNP results cannot be compared to BNP results. Performed By: #### C DP, PT, PTT, BNP, BMP, TROPI ####[address] [place] [address] BNP Normal [facility] Comment on above: Result Comment: Pro- BNP Reference Range:Rule Out: <300Grey Zone: Age <50 300-450 Age 50-75 300-900 Age >75 300-1800Usually represents mild to moderate HF but other cardiopulmonary causes cannot be ruled out.Rule In: Age <50 >450 Age 50-75 >900 Age >75 >1800Performed at [address] [place] [address] Performed By: #### C DP, PT, PTT, BNP, BMP, TROPI ####[address] [place] [address] CBC with Diffon 08-13-2017 Abs. Basophil 0.00 k/uL Normal 0.0-0.2 [facility] Comment on above: Result Comment: Perf ormed at [address] [place] [address] Performed By: #### C DP, PT, PTT, BNP, BMP, TROPI ####[address] [place] [address] Abs.Neutrophil (Seg) 4.50 k/uL Normal 1.8-7.7 [facility] Comment on above: Performed By: #### C DP, PT, PTT, BNP, BMP, TROPI ####[address] , [facility] Basophils/100 WBC Auto (Bld) 0 % Normal 0-2 [facility] Comment on above: Performed By: #### C DP, PT, PTT, BNP, BMP, TROPI ####[address] [place] [address] Eosinophils 0.20 10*3/uL Normal 0.0-0.4 [facility] Comment on above: Performed By: #### C DP, PT, PTT, BNP, BMP, TROPI ####[address] , [facility] Eosinophils/100 leukocytes 2 % Normal 0-8 [facility] Comment on above: Performed By: #### C DP, PT, PTT, BNP, BMP, TROPI ####[address] , [facility] Erythrocyte distribution width Auto Ratio (RBC) 15.0 % Normal 12.1-15.2 [facility] Comment on above: Performed By: #### C DP, PT, PTT, BNP, BMP, TROPI ####[address] , [facility] Erythrocytes (RBC) 4.75 10*6/uL Normal 4.0-5.2 [facility] Comment on above: Performed By: #### C DP, PT, PTT, BNP, BMP, TROPI ####[address] , [facility]83 Hematocrit (HCT) 41.0 % Normal 36-46 [facility] Comment on above: Performed By: #### C DP, PT, PTT, BNP, BMP, TROPI ####[address] , [facility] Hemoglobin mass conc (Bld) 13.7 g/dL Normal 12.0-16.0 [facility] Comment on above: Performed By: #### C DP, PT, PTT, BNP, BMP, TROPI ####[address] [place] [address] Lymphocytes 2.60 10*3/uL Normal 1.0-4.8 [facility] Comment on above: Performed By: #### C DP, PT, PTT, BNP, BMP, TROPI ####[address] , [facility] Lymphocytes/100 leukocytes 34 % Normal 24-44 [facility] Comment on above: Performed By: #### C DP, PT, PTT, BNP, BMP, TROPI ####[address] , [facility] MCH 28.8 pg Normal 26-34 [facility] Comment on above: Performed By: #### C DP, PT, PTT, BNP, BMP, TROPI ####[address] , [facility]83 MCHC mass conc (RBC) 33.4 g/dL Normal 31-37 [facility] Comment on above: Performed By: #### C DP, PT, PTT, BNP, BMP, TROPI ####[address] , [facility] MCV 86.3 fL Normal 80-100 [facility] Comment on above: Performed By: #### C DP, PT, PTT, BNP, BMP, TROPI ####[address] , [facility]83 Monocytes 0.40 10*3/uL Normal 0.0-1.0 [facility] Comment on above: Performed By: #### C DP, PT, PTT, BNP, BMP, TROPI ####[address] , [facility]83 Monocytes/100 leukocytes 6 % Normal 0-12 [facility] Comment on above: Performed By: #### C DP, PT, PTT, BNP, BMP, TROPI ####[address] [place] [address] Neutrophil (Seg) 58 % Normal 36-66 [facility] Comment on above: Performed By: #### C DP, PT, PTT, BNP, BMP, TROPI ####[address] [place] [address] Platelet mean volume (PMV) 6.7 fL Normal 6.0-12.0 [facility] Comment on above: Performed By: #### C DP, PT, PTT, BNP, BMP, TROPI ####[address] [place] [address] Platelets 322 10*3/uL Normal 140-450 [facility] Comment on above: Performed By: #### C DP, PT, PTT, BNP, BMP, TROPI ####[address] [place] [address] WBC (Leukocytes) 7.7 10*3/uL Normal 3.5-11.0 [facility] Comment on above: Performed By: #### C DP, PT, PTT, BNP, BMP, TROPI ####[address] [place] [address] Auto Diff Performed NOT REPORTED Normal [facility] Comment on above: Performed By: #### C DP, PT, PTT, BNP, BMP, TROPI ####[address] [place] [address] Erythrocyte morphology NOT REPORTED Normal [facility] Comment on above: Performed By: #### C DP, PT, PTT, BNP, BMP, TROPI ####[address] [place] [address] Erythrocytes (RBC) NOT REPORTED Normal [facility] Comment on above: Performed By: #### C DP, PT, PTT, BNP, BMP, TROPI ####[address] [place] [address] Granulocytes/100 WBC (Bld) NOT REPORTED Normal 0.00-0.30 [facility] Comment on above: Performed By: #### C DP, PT, PTT, BNP, BMP, TROPI ####[address] [place] [address] Immature granulocytes #/vol (Bld) NOT REPORTED Normal 0 [facility] Comment on above: Performed By: #### C DP, PT, PTT, BNP, BMP, TROPI ####[address] [place] [address] Platelets NOT REPORTED Normal [facility] Comment on above: Performed By: #### C DP, PT, PTT, BNP, BMP, TROPI ####[address] [place] [address] WBC Morphology NOT REPORTED Normal [facility] Comment on above: Performed By: #### C DP, PT, PTT, BNP, BMP, TROPI ####[address] [place] [address] ED Provider Noteon 8 HIM IP Note OR [employer] Installation Helper Normal [facility] PTon 08-13-2017 INR Coag RelTime (PPP) 0.9 {INR} Normal 0.9-1.2 [facility] Comment on above: Result Comment: Perf ormed at [address] [place] [address] Performed By: #### C DP, PT, PTT, BNP, BMP, TROPI ####[address] [place] [address] Prothrombin time (PT) Coag time (PPP) 9.7 s Normal 9.7-12.2 [facility] Comment on above: Performed By: #### C DP, PT, PTT, BNP, BMP, TROPI ####[address] [place] [address] Troponinon 08-13-2017 Troponin I.cardiac mass conc Normal [facility] Comment on above: Result Comment: Refe rence Range: <0.03 Within reference range. 0.03-0.09 Possible myocardial damage.Repeat at appropriate intervals to rule out chronic elevation. >= 0.10 Indicative of myocardial damage.Patients with high levels of Biotin oral intake (i.e >5mg/day) may have falsely decreased Troponin T levels. Samples collected within 8 hours of biotin intake may require additional information for diagnosis.Performed at [address] [place] [address] Performed By: #### C DP, PT, PTT, BNP, BMP, TROPI ####[address] [place] [address] Troponin T.cardiac mass conc ug/L Normal <0.03 [facility] Comment on above: Result Comment: Trop onin T results cannot be compared to Troponin-I results. Performed By: #### C DP, PT, PTT, BNP, BMP, TROPI ####[address] [place] [address] XR CHEST PORTABLEon 08-13-19 18 XR CHEST [...] by:RACHEL Haskinsigned by:Sruthi Mo MD08/13/17inal result Normal [facility] Vital Signs Date Time Vital Sign Value Performing Clinician Facility 02-03-2022 10:50-0400 Body height 154.9 cm Chas Romero DO Work Phone: [facility] 02-03-2022 10:50-0400 Body weight 122.7 kg Chasmina Romero DO Work Phone: [facility] 02-03-2022 10:50-0400 Diastolic blood pressure 84 mm[Hg] Chas Romero DO Work Phone: [facility] 02-03-2022 10:50-0400 Heart rate 66 /min Chas Romero DO Work Phone: [facility] 02-03-2022 10:50-0400 SaO2% (BldA) [Mass fraction] 98 % Chas Romero DO Work Phone: [facility] 02-03-2022 10:50-0400 Systolic blood pressure 117 mm[Hg] Chas Romero DO Work Phone: [facility] 01-01-2022 11:45-0400 Body height 155.57 cm Rolando Turner Other [employer] Other 01-01-2022 11:45-0400 Body mass index (BMI) [Ratio] 42.12 kg/m2 Rolando Miracle Other [employer] Other 01-01-2022 11:45-0400 Body weight 101.97 kg Rolando Miracle Other [employer] Other 11-13-2021 10:45-0400 Body height 155.57 cm Rolando Miracle Other [employer] Other 11-13-2021 10:45-0400 Body mass index (BMI) [Ratio] 42.12 kg/m2 Rolando Miracle Other [employer] Other 11-13-2021 10:45-0400 Body weight 101.97 kg Rolando Miracle Other [employer] Other 11-12-2021 13:49-0400 Body height 154.9 cm Chas Romero DO Work Phone: [facility] 11-12-2021 13:49-0400 Body weight 118.62 kg Chas Romero DO Work Phone: [facility] 11-12-2021 13:49-0400 Diastolic blood pressure 82 mm[Hg] Chas Romero DO Work Phone: [facility] 11-12-2021 13:49-0400 Heart rate 69 /min Chas Romero DO Work Phone: [facility] 11-12-2021 13:49-0400 SaO2% (BldA) [Mass fraction] 100 % Chas Romero DO Work Phone: [facility] 11-12-2021 13:49-0400 Systolic blood pressure 120 mm[Hg] Chas Romero DO Work Phone: [facility] 09-18-2021 11:15-0400 Body height 155.57 cm Rolando Turner Other [employer] Other 09-18-2021 11:15-0400 Body mass index (BMI) [Ratio] 42.12 kg/m2 Rolando Turner Other [employer] Other 09-18-2021 11:15-0400 Body weight 101.97 kg Rolando Turner Other [employer] Other 07-24-2021 11:15-0500 Body height 155.57 cm Rolando Turner Other [employer] Other 07-24-2021 11:15-0500 Body mass index (BMI) [Ratio] 47.03 kg/m2 Rolando Turner Other [employer] Other 07-24-2021 11:15-0500 Body weight 113.85 kg Rolando Turner Other [employer] Other 06-12-2021 11:00-0500 Body height 155.57 cm Rolando Miracle Other [employer] Other 06-12-2021 11:00-0500 Body mass index (BMI) [Ratio] 46.85 kg/m2 Rolando Miracle Other [employer] Other 06-12-2021 11:00-0500 Body weight 113.4 kg Rolando Miracle Other [employer] Other 05-15-2021 14:00-0500 Body height 155.57 cm Rolando Miracle Other [employer] Other 05-15-2021 14:00-0500 Body mass index (BMI) [Ratio] 42.12 kg/m2 Rolando Miracle Other [employer] Other 05-15-2021 14:00-0500 Body weight 101.97 kg Rolando Miracle Other [employer] Other 04-17-2021 10:30-0400 Body height 155.57 cm Rolando Miracle Other [employer] Other 04-17-2021 10:30-0400 Body mass index (BMI) [Ratio] 42.12 kg/m2 Rolando Miracle Other [employer] Other 04-17-2021 10:30-0400 Body weight 101.97 kg Rolando Miracle Other [employer] Other Encounters Encounter Date Encounter Type Care Provider Facility Start: 06-15-2023 End: 06-16-2023 ambulatory Fabián Archer MD [facility] Start: 04-27-2023 End: 04-28-2023 ambulatory Fabián Archer MD [facility] Start: 04-17-2023 ambulatory Luiz Garsia acility:[facility] Start: 03-04-2023 ambulatory PASCUAL [facility] Start: 02-23-2023 ambulatory [facility] Start: 01-12-2023 ambulatory [facility] Start: 01-01-2023 End: 01-01-2023 ambulatory [facility] Start: 12-01-2022 ambulatory PASCUAL [facility] Start: 09-29-2022 ambulatory PASCUAL [facility] Start: 09-15-2022 ambulatory [facility] Start: 09-15-2022 Encounter for other preprocedural examination [facility] Start: 08-22-2022 End: 08-23-[address] SMILEY URIAS . Facility:[facility] Start: 08-21-2022 ambulatory CAROLE PONCE [facility] Start: 08-06-2022 ambulatory PARRISH MCDONOUGH [facility] Start: 07-02-2022 ambulatory PASCUAL [facility] Start: 05-15-2022 End: 05-15-2022 ambulatory [facility] Start: 05-12-2022 End: 05-13-2022 ambulatory [facility] Start: 05-05-2022 End: 05-06-2022 ambulatory [facility] Start: 04-30-2022 ambulatory PASCUAL [facility] Start: 04-18-2022 End: 04-19-[address] SMILEY URIAS . Facility:[facility] Start: 04-17-2022 ambulatory MARISA [facility] Start: 04-03-2022 End: 04-03-2022 ambulatory [facility] Start: 04-01-2022 End: 04-01-2022 ambulatory [facility] Start: 03-06-2022 ambulatory SMILEY URIAS Facility:[facility] Start: 02-03-2022 End: 02-03-2022 ambulatory SMILEY URIAS Facility:[facility] Start: 02-03-2022 End: 02-03-2022 Patient encounter [...] Start: 01-23-2022 End: 01-23-2022 ambulatory SMILEY URIAS Facility:[facility] Start: 01-23-2022 End: 01-23-2022 ambulatory Emg 400) Work Phone: Neurology Comment on above: EMG Start: 01-23-2022 End: 01-23-2022 Patient encounter procedure Emg 2 Neur Rej (Max Weight: 400) Work Phone: ANDREA SAUCEDA [facility] Start: 01-22-2022 End: 01-23-[address] SMILEY URIAS . Facility: Start: 01-13-2022 End: 01-14-2022 ambulatory NUZHAT ARZOLA Facility:[facility] Start: 01-01-2022 End: 01-01-2022 ambulatory Rolando Turner Other [employer] Other Start: 01-01-2022 Office outpatient vi sit 15 minutes [facility] Start: 12-06-2021 Telephone encounter Chas laws DO Work Phone: Neurology Comment on above: Insurance Authorizat ion Start: 11-13-2021 End: 11-13-2021 ambulatory Rolando Turner Other [employer] Other Start: 11-13-2021 Office outpatient vi sit 15 minutes Rolando Turner [facility] Start: 11-12-2021 End: 11-12-2021 ambulatory CHAS ROMERO Facility:[facility] Start: 11-12-2021 End: 11-12-2021 Patient encounter procedure Chas Romero DO Work Phone: Neurology Comment on above: Right leg weakness ( Primary Dx) Start: 10-22-2021 Telephone encounter Chas laws DO Work Phone: Neurology Comment on above: Received Outside Med ical Records Start: 10-02-2021 End: 10-16-[address] SMILEY URIAS . Facility: Start: 09-30-2021 End: 09-30-2021 ambulatory Rolando Turner Other [employer] Other Start: 09-30-2021 Telephone encounter Rolando POWELL [facility] Start: 09-24-2021 End: 09-26-2021 ambulatory UNKNOWN PROVIDER Facility:[facility] Start: 09-18-2021 End: 09-18-2021 ambulatory Rolando Turner Other [employer] Other Start: 09-18-2021 Office outpatient vi sit 15 minutes Rolando Turner [facility] Start: 09-06-2021 End: 09-07-2021 ambulatory PRETTY BEST Facility: Start: 07-24-2021 End: 07-24-2021 ambulatory Rolando Turner Other [employer] Other Start: 07-24-2021 Office outpatient vi sit 15 minutes Rolando Turner [facility] Start: 06-12-2021 End: 06-12-2021 ambulatory Rolando Turner Other [employer] Other Start: 06-12-2021 Office outpatient vi sit 15 minutes Rolando Turner [facility] Start: 05-15-2021 End: 05-15-2021 ambulatory Rolando Turner Other [employer] Other Start: 05-15-2021 Office outpatient vi sit 15 minutes Rolando Turner [facility] Start: 04-17-2021 Office outpatient ne w 45 minutes Rolando Turner [facility] Start: 08-13-2017 End: 08-13-2017 Emergency department patient visit EDSON VILLEGAS [facility] Procedures Date Procedure Procedure Detail [...] Detail Author Start: 02-27-2022 Influenza vaccination [facility] Start: 09-01-2015 HPV TESTING HPV TESTING [facility] Start: 2006 PAP TESTING PAP TESTING [facility] Start: 2004 Urine microalbumin profile DTAP,TDAP,TD (1 - Tdap) [facility] Start: 09-01-2003 ANNUAL PCP TEAM SHIFT SUPERINTENDENT CAIN DISEASE VISIT ANNUAL PCP TEAM CHRONIC DISEASE VISIT [facility] Start: 09-01-2003 BP CONTROLLED (<130/80) BP CON TROLLED (<130/80) [facility] Start: 09-01-2003 HEPATITIS C SCREENING HEPATITIS C SC MARYLU [facility] Start: 09-01-2003 HIV SCREENING HIV SCREENING [facility] Start: 1997 Adult depression screening assessment DEPRESSION SCREENING [facility] Start: 1990 COVID-19 VACCINE (#1) COVID-19 VACCI NE (#1) [facility] Start: 1990 COVID-19 VACCINE (1) COVID-19 VACCIN E (1) [facility] Start: 03-03-1986 COVID-19 VACCINE (#1) COVID-19 VACCI NE (#1) [facility] Start: 1985 HEPATITIS B (1 of 3 - 3-dose series) HEPATITIS B (1 of 3 - 3-dose series) [facility] End: 11-12-2022 EMG(NEURO/NI) EMG(NEURO/NI) EMG Routine Right leg weakness 1 Occurrences starting 11/12/2021 until 11/12/2022 [facility] Work Phone: Comment on above: 1 Occurrences starti ng 11/12/2021 until 11/12/2022 [facility] Payers Date Payer Category Payer Self-pay 2022 Medicaid [id number] 2021 Unknown [facility] COMP [id number] 2021-Present [phone] [place] [address] [facility] [id number] 2021 Unknown [id number] 2021 Unknown [id number] 2021 Worker's Compensation [id number] 2021 Worker's Compensation 2020 Medicaid [employer] 2020-Present [phone] [address] [place] [address] Medicaid 2020 Medicaid [employer] [id number] 2020-Present [phone] [address] [place] [address] Medicaid [id number] 2014 Unknown [id number] 1985 Unknown [id number] 32 1985 Unknown [id number] [id number] 47 1985 Unknown [id number] [id number] 93 1985 Unknown [id number] [id number] 93 1985 Unknown [id number] [id number] 93 1985 Unknown [id number] [id number] 93 1985 Unknown [id number] [id number] 93 1985 Unknown [id number] [id number] 93 1985 Unknown [id number] [id number] 93 1985 Unknown [id number] [id number] 93 1985 Unknown [id number] [id number] 96 1985 Unknown [id number] 96 1959 Medicaid [id number] 1959 Unknown [id number] Unknown [id number] 31 Social History Date Type Detail Facility Start: 09-29-2014 Tobacco smoking stat us ARIS Smokes tobacco daily [facility] End: 08-15-2019 History of tobacco use Cigarette Smoker [facility] Start: 09-29-2014 End: 02-03-2022 Cigarettes smoked current (pack per day) - Reported 0.5 [facility] Start: 09-29-2014 End: 02-03-2022 Tobacco use and exposure Smokeless tobacco non-user [facility] Start: 03-02-2015 End: 02-03-2022 Alcohol intake Current non-drinker of alcohol (finding) [facility] Start: 1985 Sex Assigned At Not on file [facility] Start: 11-12-2021 End: 02-03-2022 Tobacco smoking status NHIS Ex-smoker [facility] End: 08-15-2019 History of tobacco use Current smoker [facility] Start: 11-02-2021 End: 02-03-2022 Exposure to SARS-CoV-2 (event) Not sure [facility] Sex Assigned At Sex Assigned At [facility] [employer] Other Clinical Notes 04-03-2021 to 03-04-2023 Chas [...] 1 month she will likely be at [facility] and then will be released for work either with permanent restrictions or unrestricted depending upon how she feels. She has exhausted conservative care at this point. This patient was seen and examined in the presence of Dr. Cesar Escalante resident in physical medicine and rehabilitation. [facility] 02-23-2023 Note Attestation signed by Jenny Holley [...] improve Chinedu Palacios MD Orthopedic Surgery, PGY-4 [facility] Pager: [phone] 02/23/23 2:00 PM This note was created [...] be an additional personal documentation from me. [facility] 01-12-2023 Note Attestation signed by Jenny Holley [...] be an additional personal documentation from me. [facility] 01-02-2023 Note I called and spoke t o the patient for a discharge follow up call following her procedure. The patient is doing well at home. She is taking ASA per orders. She denies any issues with her surgical dressing. I confirmed with the patient that she has a follow up appointment with Dr. Holley. [facility] 01-01-2023 Note Patient: Nabila cohn Procedure Summary Date: 01/01/23 Room / Location: [facility] OR [address] [place] [address] [facility] OR Anesthesia Start: 0900 Anesthesia Stop: [...] no known notable events for this encounter. [facility] 01-01-2023 Note Airway Date/Time: 01/01/2023 9:16 AM Urgency: elective Airway not difficult General Information and Staff Patient location during procedure: OR Anesthesiologist: Han Aguiar MD Resident/MANAGER [employer]/CAA: TANO Bonner Performed: other anesthesia staff Learner [...] 1 Number of other approaches attempted: 0 [facility] 01-01-2023 Note Patient: Nabila cohn Procedure Information Date/Time: 01/01/23 0930 Procedures: KNEE ARTHROSCOPY WITH (Left: Knee) SAUCERIZATION OF DISCOID MENISCUS AND CHONDROPLASTY OF TROCHLEA (Left: Knee) Location: [facility] OR / [facility] OR Surgeons: Jenny Holley MD Echo complete W/O contrast Order: [id number] Narrative ?Left Ventricle: Systolic function is normal [...] 09:51 Last Resulted: 07/12/19 12:35 Received From: [employer] Result Received: 03/31/22 20:06 View Encounter ??? 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 Additional Equipment Requests [facility] 12-09-2022 Note Called to confirm ap pointment with dietitian scheduled for 12/10; pt request to cancel appointment at this time. [facility] 12-01-2022 Note Attestation signed by Pascual Uribe [...] of compliance with treatment. Clay Barlow SUBJECTIVE: Nablia Jewell is a 37 y.o. female who presents to [facility] today for [facility] post-concussion syndrome follow up HPI: Patient [...] by mouth in (more content not included)... [facility] 09-29-2022 Note Attestation signed by Pascual Uribe [...] Medication refill was given Erika Damon, MS3 [facility] 09-15-2022 Note Orthopedic Surgery Subjective Chief complaint: Chief Complaint Patient presents with Left Knee - Pain 09/15/22 Nabila Jewell is a 37 year old female who presents for follow up evaluation of her left knee. The pain is unchanged and she would like to undergo surgery. 08/22/2022: Conservative measures have not provided skilled nursing relief, seen today with complaints of left knee pain. PT, medications and CSI have not provided rn long term care relief. 07/02/22 steroid injection at previous visit [...] -Patient reports conservative measures are not providing rn long term care relief for left knee pain. She would like to undergo surgical repair - Consent for left knee arthroscopy has been obtained -Plan L knee chondroplasty trochlea and partial lateral meniscectomy [facility] 08-21-2022 Note Orthopedic Surgery Subjective Chief complaint: Chief Complaint Patient presents with Left Knee - Pain 08/22/22 Conservative measures have not provided skilled nursing relief, seen today with complaints of left knee pain. PT, medications and CSI have not provided skilled nursing relief. 07/02/22 steroid injection at previous visit [...] patient's left knee was brought in from [facility] on a CD disc that was personally [...] -Patient reports conservative measures are not providing skilled nursing relief in regard to her left knee. Refer to Dr Holley for opinion. [facility] 08-06-2022 Note Adult Nutrition Asse ssment Name: [...] Needs: Needs based on: IBW Calorie Needs: 4984-8723 kcal/day (25-30 kcal/kg) Protein Needs: 65 g/day [...] to 2000 mg/day -Wt loss 1-2 lb/wk [employer] Goals: -Wt loss 10% Pt scheduled follow-up appointment with RD for December 10 @ 11 am. Encouraged pt to check with insurance for coverage prior to appointment. Time Spent With Pt: 10:00 - 11:30 am [facility] 07-31-2022 Note Called pt to confirm appointment with RD on 08/06/22. She is interested in attending appointment - fax sent to primary care physician (Dr. Urias) and requested for referral with nutrition related diagnosis. [facility] 07-02-2022 Note Subjective Patient ID: Nabila Jewell is a 36 y.o. female. Headache Leg Pain this patient is a 36-year-old female who sustained a work-related head injury. She continues with postconcussive syndrome. At her last visit we did start her on nabumetone been helping her headaches. They lessen the intensity. She continues with physical therapy here at [facility]. She has not yet been [...] Additional Comments: Seen on medical student today [facility] 05-15-2022 Note Attestation signed by Rufino Perdomo [...] patient's left knee was brought in from [facility] on a CD disc that was personally [...] evaluation Sixto Durham MD PGY-4 Orthopedic Surgery [facility] By using the attestations below, the signing [...] be an additional personal documentation from me. [facility] 04-30-2022 Note ASSESSMENT/PLAN: Nabila was seen today [...] a 36 y.o. female who presents to [facility] today for Workers Compensation Follow [...] strength 5/5, R (more content not included)... [facility] 04-30-2022 Note I saw and evaluated the patient, participating in the mc portions of the service. I reviewed the resident???s note. I agree with the resident???s findings and plan. Pascual Uribe MD [facility] 04-17-2022 Note Attestation signed by Marisa Carter, PhD at 04/17/2022 7:11 PM I supervised all aspects of this evaluation. [facility] OUTPATIENT REHABILITATION SERVICES - NEUROPSYCHOLOGY [address] [place] [address] Ms. Nabila Jewell was seen via [employer] and then Telephone to discuss the neuropsychological evaluation. We discussed the results, their implications, applicable diagnoses, and recommendations. All questions were answered. At this time, she is discharged from the Neuropsychology service. A copy of these results will be available to her via [facility] [employer] or through contacting the Dept. of Health Information Management ([employer]) at [phone]. Contact the Neuropsychology Clinic at [phone] with questions. Linda Scott, PhD Clinical Psychology Neuropsychology [facility] 04-17-2022 Note Attestation signed by Marisa Carter PhD at 04/22/2022 1:40 PM I supervised all aspects of this service. 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 She recalls multiple details of events prior to arriving at work and for the first few hours of her shift. She reports that her next memory is of lying on the floor near the door to the kitchen feeling leg and head pain. She reports that she was working alone in the kitchen at the time of the fall, but that a counter waitress/waiter came in to assist her and a production welding supervisor was also called, who in turn called EMS. Ms. Jewell reports she was transported to [facility] in [place], [place], and adds a few memories of [...] seen as a new patient for a [place] of Worker's Compensation claim related to concussion [...] also includes a 02/03/22 visit note from [facility] Neurology with Chas Romero DO (Neuromuscular [...] 2020 injury. Review of medical records from [facility] on 11/12/21 indicate additional history of [...] but previously saw Dr. Carole Caba at [facility]. She reports she currently follows with Wendy Rubio CNP at [facility]. She reports no history of psychological or neuropsychological evaluation, and no history of psychiatric hospitalization. SUBSTANCE USE: Ms. Jewell reports no current use of alcohol and no history of significant alcohol use. She reports no illicit drug use (more content not included)... [facility] 04-03-2022 Note Attestation signed by Rufino Perdomo [...] patient's left knee was brought in from [facility] on a CD disc that was personally [...] 04/03/22 10:18 AM (more content not included)... [facility] 04-01-2022 Note [id number] Rebecca Jewell 1985 F Date Provider Department Center 04/01/2022 MARISA SIMON MP REHAB PSY [facility] No family history on file Reason for Visit and Comments: Concussion [[id number]] [facility] 04-01-2022 Note Attestation signed by Marisa Carter, PhD at 04/01/2022 1:03 PM I participated in and supervised all aspects of this service. REVIEWED BY: Marisa Carter, PhD, ABPP Board Certified Clinical Neuropsychologist [facility] OUTPATIENT REHABILITATION SERVICES - NEUROPSYCHOLOGY [address] [facility] [facility] [address] Ms. Nabila Jewell was seen for a neuropsychological evaluation on 04/01/2022. A report describing the results of this evaluation will be posted after the follow-up appointment is completed. Linda Scott, PhD Clinical Psychologist Neuropsychology Fellow [facility] 04-01-2022 Note Ms. Nabila Jewell has a follow-up appointment on 04/17/2022 with Linda Scott, PhD & Marisa Carter, PhD ABPP in Neuropsychology, to discuss the results of the evaluation on 04/01/2022. This appointment will be conducted via [employer] [facility] 02-03-2022 Note HNO ID: [id number] Author: Chas Romero, DO Service: ? Author Type: Physician Type: Progress Notes Filed: 02/03/2022 11:27 AM Note Text: Neuromuscular Clinic Follow up Visit SERVICE DATE: 02/03/2022 PCP: Smiley Urias MD [address] [place] [address] Reason for Evaluation: Consultation requested by Self for an opinion regarding right leg weakness Family/Friend accompanying the patient today: none HPI: This is Ms. Nabila Jewell, a 36 year old female who presents to the [facility] with the chief complaint above. 02/03/2022: [...] get up after this. She went to [facility] in [place]. She was evaluated and did testing and [...] significant dysarthria M (more content not included)... [facility] 02-03-2022 History of Present illness Narrative Neuromuscular Clinic Follow up Visit SERVICE DATE: 02/03/2022 PCP: Smiley Urias MD [address] [place] [address] Reason for Evaluation: Consultation requested by Self for an opinion regarding right leg weakness Family/Friend accompanying the patient today: none HPI: This is Ms. Nabila Jewell, a 36 year old female who presents to the [facility] with the chief complaint above. 02/03/2022: [...] get up after this. [facility] [place]. She was evaluated and did testing and [...] which included preparing to see the patient, xtuq-[id number] patient care, completing clinical documentation, obtaining and/or reviewing separately obtained history, performing a medically appropriate examination, and counseling and educating the patient/family/caregiver. documented in this encounter [facility] 01-30-2022 Miscellaneous Notes I called patient and communicated results of EMG testing, all questions answered. Advised her that she does not need to follow up with me. Chas Romero DO documented in this encounter [facility] 01-23-2022 Note HNO ID: [id number] Author: Sofi Hernandez MD Service: ? Author [...] [facility] EMG Tech Sofi Hernandez MD [facility] 01-23-2022 History of Present illness Narrative [...] MARLIN Spangler MD documented in this encounter [facility] 01-14-2022 Note PROCEDURE: XR KNEE L [...] authenticated by: PASCUAL GAMBLE Date: 2022-01-14 12:01 [facility] 01-01-2022 Evaluation note Encounter Date Diagnosis [...] months if needed Continue restrictions- off work. [employer] Other 06-10-2022 Miscellaneous Notes* Telephone Encounter - Sky Rapp - 12/06/2021 11:31 AM EDT Relationship to patient: Self Reason for call (non-seizure related) Patient called asking about status of prior authorization [facility] order Patient of Dr. Romero [facility] Evaluation note* Encounter Date Diagnosis Assessment [...] patient tolerated well with no adverse reactions. [employer] Other 05-17-2022 NoteHNO ID: [id number] Author: Chas Romero, DO Service: ? Author Type: Physician Type: Progress Notes Filed: 11/12/2021 2:58 PM Note Text: Neuromuscular Clinic New Patient Visit SERVICE DATE: 11/12/2021 PCP: Smiley Urias MD [facility] [id number] Reason for Evaluation: Consultation requested by Self for an opinion regarding right leg weakness Family/Friend accompanying the patient today: none HPI: This is Ms. Nabila Jewell, a 36 year old female who presents to the [facility] with the chief complaint above. She had an injury at work (March 2021)-she fell and hit her head on a prep table and fell onto her knee. She had difficulty moving to get up after this. She went to [facility] in [place]. She was evaluated and did testing and [...] Hip abduction 4+ (giveaw (more content not included)...[facility]05-17-2022 Instructions* Patient Instructions* Chas Romero DO - 11/12/2021 2:47 PM EDT You were seen today for right leg weakness, I ordered EMG to assess for this. Continue physical therapy exercises. [facility] History of Present illness Narrative* Chas Romero DO - 11/12/2021 2:00 PM EDT Neuromuscular Clinic New Patient Visit SERVICE DATE: 11/12/2021 PCP: Smiley Urias MD [address] [place], [place] [id number] Reason for Evaluation: Consultation requested by Self for an opinion regarding right leg weakness Family/Friend accompanying the patient today: none HPI: This is Ms. Nabila Jewell, a 36 year old female who presents to the [facility] with the chief complaint above. She had an injury at work (March 2021)-she fell and hit her head on a prep table and fell onto her knee. She had difficulty moving to get up after this. She went to [facility] in [place]. She was evaluated and did testing and [...] which included preparing to see the patient, mqrh-ej-eupt patient care, completing clinical documentation, obtaining and/or reviewing separately obtained history, performing a medically appropriate examination, counseling and educating the pat ient/family/caregiver and ordering medications, tests, or procedures. [facility] Miscellaneous Notes* Telephone Encounter - Sky Rapp - 10/22/2021 10:54 AM EDT Referral, medical records received and scanned in for review. [facility] Evaluation note* Encounter Date Diagnosis Assessment Notes Treatment Notes Treatment Clinical Notes Aug, Sprain of unspecified site of right knee, initial encounter (ICD-10 - S83.91XA) Continue physical therapy with approval [facility] and referral to neurology for knee [...] Continue restrictions-of f work, Continue with therapy [employer] Other 01-26-2022 Evaluation note* Encounter Date Diagnosis [...] pain. Continue restrictions-off work, Continue with therapy [employer] Other 12-15-2021 Evaluation note* Encounter Date Diagnosis [...] on the affected leg. Continue off work [employer] Other 11-17-2021 Evaluation note* Encounter Date Diagnosis [...] She has seen an occupational physician at [place] who is ordered a hinged knee brace [...] weeks therapy. Apply for for cortisone injection. [facility] Continue off work [employer] Other 10-20-2021 Evaluation note* Encounter Date Diagnosis [...] will submit for an MRI approval throught [facility]. Continue off of work. Mar, Other See orders for this visit as documented in the electronic medical record. [employer] Other 10-06-2021 NoteChief Complaint consultation for abscess [...] 2: Father. Hyperlipidemia: Father. Hypertension: Mother and Father.[facility]: Result Comment: Electronically Signed By: LAVELL QUARLES, Edson Strong\Date and Time Signed: 04/03/21 16:35 EDTEvaluation note* Diagnosis Right leg weakness- Primary Other musculoskeletal symptoms referable to limbs documented in this encounter [facility] noteNo InformationN[facility]Main [facility] [employer] Other Evaluation note* Diagnosis Right leg weakness Other musculoskeletal symptoms referable to limbs documented in this encounter [facility] note* Diagnosis Right leg weakness- Primary Other musculoskeletal symptoms referable to limbs documented in this encounter [facility] general Narrative - Reported* Type Description Date Medical History Chronic back pain Medical History HTN Medical History Anxiety Surgical History cholecystectomy Surgical History C section x 2 Surgical History pilonidal cyst Hospitalization History HTN [facility] Other History general Narrative - Reported* Type Description Date Medical History Chronic back pain Medical History HTN Medical History Anxiety Surgical History cholecystectomy Surgical History C section x 2 Surgical History pilonidal cyst Hospitalization History HTN Hospitalization History see surgeries [employer] Other Reason for referral (narrative)* Outpatient Procedure (Routine) - Authorized Specialty Diagnoses / Procedures Referred By Daniel perry Referred To Contact [facility] Diagnoses Right leg weakness Procedures EMG(NEURO/NI) NERVE CONDUCTION STUDIES 9-10 STUDIES Chas Romero DO [address] [place] [address] [facility] [place] [address] [place] [address] Referral ID Status Reason Start Date Expiration Date Visits Requested Visits Authorized [id number] Authorized Auto-Generat ed Referral 11/12/2021 11/12/2022 1 1 [facility] for referral (narrative)* Reason referral for neurolo gy for weakness of the right knee and second opinion Diagnosis 1 Sprain of unspecifie d site of right knee, initial encounter (S83.91XA) [facility] Referring Provider First Name Rolando Referring Provider Last Name Miracle Referring Provider Specialty Orthopedic Surgery Referred Organization Unknown Facility Referred Provider Specialty Neurology Referral Priority Routine [employer] Other Summary Purpose Family History No Family [...] DATE CREATED AUTHOR AUTHOR'S ORGANIZ ATION 03/02/2020 [facility] DATE CREATED AUTHOR AUTHOR'S ORGANIZ ATION 03/06/2021 [facility] DATE CREATED AUTHOR AUTHOR'S ORGANIZ ATION 04/10/2021 [facility] DATE CREATED AUTHOR AUTHOR'S ORGANIZ ATION 09/29/2021 [facility] DATE CREATED AUTHOR AUTHOR'S ORGANIZ ATION 03/06/2022 [facility] DATE CREATED AUTHOR AUTHOR'S ORGANIZ ATION 04/04/2022 [facility] DATE CREATED AUTHOR AUTHOR'S ORGANIZ ATION 08/29/2022 [facility] DATE CREATED AUTHOR AUTHOR'S ORGANIZ ATION 03/08/2023 [facility] DATE CREATED AUTHOR AUTHOR'S ORGANIZ ATION 06/24/2023 [facility] DATE CREATED AUTHOR AUTHOR'S ORGANIZ ATION 07/09/2023 [facility] Source Comments (unrecognize d section and content) In the event this informatio n is protected by the Federal Confidentiality of Alcohol and Drug Abuse Patient Records regulations: The Federal rules restrict any use of the information to criminally investigate or prosecute any alcohol or drug abuse patient.[facility] Hospital[facility] the event this information is protected by the Federal Confidentiality of Alcohol and Drug Abuse Patient Records regulations: The Federal rules restrict any use of the information to criminally investigate or prosecute any alcohol or drug abuse patient.[facility] HospitalIn the event this information is protected by the Federal Confidentiality of Alcohol and Drug Abuse Patient Records regulations: The Federal rules restrict any use of the information to criminally investigate or prosecute any alcohol or drug abuse patient.[facility] Hospital[facility] the event this information is protected by the Federal Confidentiality of Alcohol and Drug Abuse Patient Records regulations: The Federal rules restrict any use of the information to criminally investigate or prosecute any alcohol or drug abuse patient.[facility] HospitalIn the event this information is protected by the Federal Confidentiality of Alcohol and Drug Abuse Patient Records regulations: The Federal rules restrict any use of the information to criminally investigate or prosecute any alcohol or drug abuse patient.[facility] HospitalIn the event this information is protected by the Federal Confidentiality of Alcohol and Drug Abuse Patient Records regulations: The Federal rules restrict any use of the information to criminally investigate or prosecute any alcohol or drug abuse patient.[facility] Reason for Visit (unrecogniz ed section and content) Reason Comments Received Outside Medical Records Reason Comments New Patient Musculoskeletal Problem RT lower extremi ties Reason Comments Insurance Authorization Reason Comments EMG Specialty Diagnoses / Procedures Referred By Daniel t Referred To Contact [facility] Diagnoses Right leg weakness Procedures EMG(NEURO/NI) NERVE CONDUCTION STUDIES 9-10 STUDIES Chas Romero DO [address] [place] [address] [facility] [place] [address] [place] [address] Referral ID Status Reason Start Date Expiration Date V isits Requested Visits Authorized [id number] Closed Auto-Generate d Referral 11/12/2021 11/12/2022 1 1 Reason Comments Results Reason Comments Established Patient Follow Up Visit Care Teams (unrecognized sec tion and content) Chorus Dancer Relationship Specialty Start Date End Date Smiley Urias MD PCP - General Family Practice 03/02/14 Serafin Bartlett, DO [address] [address] Referring Neurology 04/14/19 Rolando Turner, DO [address] [place] [address] Referring Orthopedics 10/11/21 Chorus Dancer Relationship Specialty Start Date End Date Smiley Urias MD PCP - General Family Practice 03/02/14 Serafin Bartlett, DO [address] [address] Referring Neurology 04/14/19 Rolando Turner, DO [address] [place] [address] Referring Orthopedics 10/11/21 Chorus Dancer Relationship Specialty Start Date End Date Smiley Urias MD PCP - General Family Practice 03/02/14 Serafin Bartlett, DO [address] [place] [phone] Referring Neurology 04/14/19 Rolando Turner, DO [address] [place] [address] Referring Orthopedics 10/11/21 Zehra Holly, COMPUTER TECHNOLOGY TEACHER [address] [place] [facility] [place] [phone] Referring Family Practice 11/19/21 Chorus Dancer Relationship Specialty Start Date End Date Smiley Urias MD PCP - General Family Practice 03/02/14 Serafin Bartlett, DO [address] [place] [phone] Referring Neurology 04/14/19 Rolando Turner, DO [address] [place] [address] Referring Orthopedics 10/11/21 Zehra Holly, COMPUTER TECHNOLOGY TEACHER [address] [place] [facility] [place] [phone] Referring Family Practice 11/19/21 Chorus Dancer Relationship Specialty Start Date End Date Smiley Urias MD PCP - General Family Practice 03/02/14 Serafin Bartlett, DO [address] [place] [address] Referring Neurology 04/14/19 Rolando Turner, DO [address] [place] [address] Referring Orthopedics 10/11/21 Zehra Holly, COMPUTER TECHNOLOGY TEACHER [address] [place] [facility] [place] [phone] Referring [facility] 11/19/21 FOR RECORDS PERTAINING TO PATIENTS WHO [...] BE BASED ON THE PRIMARY CLINICAL RECORDS. [facility]. provides no warranty or guarantee of the accuracy or completeness of information in this document.
[2023-07-21 12:26] LABS: Basophils Percent Auto 0.6 % (0.2-2.0); Eosinophils Percent Auto 0.7 % (0.9-7.0); Hemoglobin 13.3 g/dL (12.0-16.0); Immature Granulocytes Abs Auto 0.01 10^3/uL (0.00-0.03); Immature Granulocytes Pct Auto 0.2 % (0.0-0.5); Lymphocytes Absolute Auto 1.7 10^3/uL (1.2-3.8); Mean Corpuscular HGB Conc 33.3 g/dL (29.9-35.2); Mean Corpuscular Hemoglobin 29.2 pg (26.7-34.0); Mean Corpuscular Volume 87.7 fL (81.0-99.0); Mean Platelet Volume 8.6 fL (9.5-13.5); Monocytes Absolute Auto 0.2 10^3/uL (0.3-0.8); Monocytes Percent Auto 4.5 % (1.7-12.0); Neutrophils Absolute Auto 3.4 10^3/uL (1.4-6.5); Platelet Count 335 10^3/uL (150-450); Red Blood Count 4.56 10^6/uL (4.20-5.40); Red Cell Distribution Width 11.9 % (11.0-15.0); White Blood Count 5.4 10^3/uL (4.0-11.0)
[2023-07-21 13:03] LABS: Estimated Average Glucose 114 mg/dL; Glycohemoglobin A1C 5.6 % (4.5-6.2)
[2023-07-21 13:19] LABS: Alanine Aminotransferase 25 U/L (14-59); Albumin Globulin Ratio 0.7; Albumin Level 3.4 g/dL (3.4-5.0); Alkaline Phosphatase 98 U/L (46-116); Aspartate Amino Transferase 19 U/L (15-37); BUN Creatinine Ratio 13.2; Bilirubin Total 0.4 mg/dL (0.2-1.0); Calcium 9.3 mg/dL (8.5-10.1); Carbon Dioxide 27.2 mmol/L (21.0-32.0); Chloride 102 mmol/L (98-107); Chol HDL Ratio 2.9; Cholesterol 150 mg/dL (<=200); Estimated GFR (African America >60 (>=60); Estimated GFR (Non-African Ame >60 (>=60); Free T3 3.29 pg/mL (2.18-3.98); Globulin 4.6 g/dL; Glucose 92 mg/dL (74-106); HDL Cholesterol 51 mg/dL (40-60); LDL Cholesterol Calculated 86.6 mg/dL; Magnesium 1.9 mg/dL (1.8-2.4); Potassium 4.2 mmol/L (3.5-5.1); Sodium 137 mmol/L (136-145); Thyroid Stimulating Hormone 0.984 uIU/mL (0.358-3.740); Triglycerides 62 mg/dL (<=150); VLDL CHOLESTEROL 12.4 mg/dL
[2023-07-22 11:09] LABS: Insulin 16.9 uIU/mL (2.6-24.9)
== END 2023-07-21 11:43 | disposition home or self-care (01) ==
LOC: LAB 11:43
PROVIDERS: PCP Family Medicine; Visit Provider Family Medicine
DX: G43.909 Migraine, unspecified, not intractable, without status migrainosus (principal); I16.0 Hypertensive urgency; E83.42 Hypomagnesemia; R73.09 Other abnormal glucose; D64.9 Anemia, unspecified; E55.9 Vitamin D deficiency, unspecified
CPT/HCPCS: 36415; 80053; 80061; 82306; 83036; 83525; 83540; 83735; 84436; 84443; 84481; 85025

== ENCOUNTER 2023-09-09 12:18 | Outpatient (OUT) | payer OTHER, SELFPAY ==
--- OUTSIDE RECORDS SUMMARY | 2023-09-09 12:27 | XMS_ITS | CCD ---
Author Name Unknown Address [address] [place] [address] Organization [facility] Care Team Providers Care Supervisor Whipped Topping Name Role Phone VILLEGASEDSON PLASCENCIA Unavailable Unavailab SMILEY Dawkins Unavailable Unavailable PROVIDER, UNKNOWN Attending Unavailable PROVIDER, UNKNOWN Admitting Unavailable Smiley Urias MD Primary Care Provider [phone] Serafin Bartlett DO Unavailable Rolando Turner DO Unavailable [phone] Zerha Holly CNP Unavailable Rolando Turner Unavailable Smiley Urias MD Primary Care Provider [phone] Serafin Bartlett DO Unavailable Rolando Turner DO [...] HOY ., DR REIS Primary Care Unavailable BUFFALO, DR JENNY Barbosa Consulting Unavailable HOY ., [...] HOLLEY Attending Unavailable PASCUAL URIBE Attending Unavailable EBRAHEIM, RUFINO Attending Unavailable JENNY HOLLEY Attending Unavailable EBRAHEIM, RUFINO Attending Unavailable MARISA CARTER Attending Unavailable SUMIT BAPTISTE Referring Unavailable PARRISH MCDONOUGH Attending Unavailabl e EBRAHEIM, RUFINO Referring Unavailable JENNY HOLLEY Admitting Unavailable JENNY HOLLEY Attending Unavailable PASCUAL URIBE Attending Unavailable PASUCAL URIBE Attending Unavailable PASCUAL URIBE Attending Unavailable URIBEPASCUAL ORANTES Attending Unavailable EBRAHEIM, RUFINO Referring Unavailable EBRAHEIM, RUFINO Referring Unavailable MARISA CARTER Attending Unavailable KHANG BORRERO Referring Unavailable Germaineitis , Fabián Allen Attending Unavailable Germaineitis , Andrius Allen Attending Unavailable Germaineitis , Andrius Allen Attending Unavailable Luiz Knight Attending Unavailab Luiz rBennan Admitting Unavailab Smiley Dawkins Primary Care Unavailable Allergies Allergy Classification Reported Allergen(s) Allergy Type Date of Onset Reaction(s) Facility (7 sources) Erythromycin; Translations: [ERYTHROMYCIN] Drug Allergy 2 anaphylaxis [facility] Repository (1 source) Erythromycin Drug Allergy 0 [facility] Repository (1 source) Erythromycin Drug Allergy 1 [facility] Repository (1 source) Erythromycin; Translations: [ERYTHROMYCIN LACTOBIONATE] Drug Allergy 2 [facility] Repository (1 source) ALLERGIES NOT ON FILE; Translations: [ALLERGIES NOT ON FILE] Propensity to adverse reactions (disorder) [facility] Repository (1 source) Azithromycin Drug Allergy 1 [facility] Repository (1 source) Erythromycin Drug Allergy 2 [facility] Repository Medications Current Medications Medication Drug [...] on above: Take 1 capsule by mo [facility] once daily. hydroCHLOROthiazide 12.5 mg / irbesartan [...] Take 1 tablet by kael twice daily. 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 This letter is for [employer] because her children gets medical benefits. Patient was sent the letter. [facility] 36on 03-05-2023 36 Patient states she received a note for work but she needs a note stating she is off work. Please email if MD writes she states it is for jobs and family services and she states that is what they need. [facility] Follow-Upon 03-04-2023 Follow-Up [id number] Rebecca Jewell 1985 F Date Provider Department Center 03/04/2023 PASCUAL HOPKINS MP PHYS MED Medical Pavi No family history on file Level of Service:11484 [place] OFFICE/OUTPATIENT ESTABLISHED LOW MDM 20-29 MIN (GC) Reason for Visit and Comments: Concussion [767637] - [facility] Office Visiton 02-23-2023 Follow-up visit [id number] Rebecca Jewell 1985 F Date Provider Department Center 02/23/2023 JENNY MARAVILLA MP ORTHO MPORTHO No family history on file Level of Service:07811 [place] POSTOP FOLLOW UP VISIT RELATED TO ORIGINAL PX (GC) Reason for Visit and Comments: Pain [136] Follow-up [423554] [facility] Office Visiton 01-12-2023 Follow-up visit [id number] Rebecca Jewell 1985 F Date Provider Department Center 01/12/2023 JENNY MARAVILLA MP ORTHO MPORTHO No family history on file Level of Service:47784 [place] POSTOP FOLLOW UP VISIT RELATED TO ORIGINAL PX (GC) Reason for Visit and Comments: Post-op [483] Normal [facility] Orders Onlyon 01-08-2023 Orders Only [id number] Rebecca Jewell 1985 F Date Provider Department Center 01/08/2023 [id number] PICHARDO MP ORTHO MPORTHO No family history on file Normal [facility] OPNOTEon 01-01-2023 OPNOTE KNEE ARTHROSCOPY WIT H PARTILA LATERAL MENISCECTOMY (L), CHONDROPLASTY (L) Operative Note Date: 01/01/2023 Location: [facility] OR Name: Nabila Jewell, : 1985, Diagnosis Pre-op Diagnosis * 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 [...] - hemodynamically stable. Condition: stable Jenny Holley [facility] POCT GLUCOSE METER UNSOLICIT ED RESULTSon 01-01-2023 Glucose [Mass/Vol] 93 mg/dL Normal 70-105 Eric soto [facility] Comment on above: Order Comment: Waive d Testing in the ED is performed under the ED CLIA certificate #[id number]. Result Comment: ngro andrew Performed By: #### L [id number] ####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 AND 24 HOUR CARE NO JEWELRY BRING INS AND ID Take the meds we spoke about w/a sip of water DOS: ALL NORMAL AM MEDS ARRIVE AT [facility] Documentationon 12-09-2022 Documentation [id number] Rebecca Jewell iva Esparza 1985 Provider Department [place] 12/09/2022 PARRISH STOVER MP DIETARY Medical Pavi Chart Close Cosign Required by: Samir Mendoza MD[1894] No family history on file [facility] 36on 12-03-2022 36 [employer] [facility] from [facility] calls to state the last note sent with the [employer] has a statement that patient can work 4 hours per day 20 hours per week but [employer] sent yesterday did not have any thing listed but patient states there were no changes and she is still to be off work. I pulled up [employer] sent in by promotion writer and I had forgotten to check the no changes box. In same note it does state by MD patient is not working and will be evaluated upon next ov. I informed her of the error and she requested I resend with the no changes box checked. Form was reprinted and faxed back. [facility] 36 Patient calls to sta te her [employer] is stating she will need [...] so she will call the [employer] back. [facility] Telephoneon 12-03-2022 Telephone [id number] Taj Jewellvenancio Esparza 1985 Provider Department [place] 12/03/2022 PASCUAL HOPKINS MP PHYS MED Medical Pavi No family history on file [facility] Follow-Upon 12-01-2022 Follow-Up [id number] Rebecca Jewell 1985 Provider Department [place] 12/01/2022 PASCUAL HOPKINS MP PHYS MED Medical Pavi No family history on file Level of Service:93360 [place] OFFICE/OUTPATIENT ESTABLISHED LOW MDM 20-29 MIN (GC) Reason for Visit and Comments: headaches [Other] - BWC Normal [facility] Follow-Upon 09-29-2022 Follow-Up [id number] Rebecca Jewell M 1985 F Date Provider Department Center 09/29/2022 PASCUAL HOPKINS MP PHYS MED Medical Pavi No family history on file Level of Service:95646 [place] OFFICE/OUTPATIENT ESTABLISHED LOW MDM 20-29 MIN Reason for Visit and Comments: headaches [Other] Leg Pain [676096] - Right Normal [facility] Orders Onlyon 09-29-2022 Orders Only [id number] Rebecca Jewell M 1985 F Date Provider Department Center 09/29/2022 PASCUAL HOPKINS MP PHYS MED Medical Pavi No family history on file Normal [facility] Office Visiton 09-15-2022 Follow-up visit [id number] Rebecca Jewell M 1985 F Date Provider Department [place] 09/15/2022 443-JENNY HOLLEY MP ORTHO MPORTHO No family history on file Level of Service:50392 [place] OFFICE/OUTPATIENT ESTABLISHED MOD MDM 30-39 MIN (57) Reason for Visit and Comments: Pain [136] Normal [facility] CULTURE URINEon 08-22-2022 CULTURE URINE Culture Observations : MODERATE GROWTH OF MIXED GENITAL GISELLE. NO POTENTIAL PATHOGENS SEEN. Normal [facility] Comment on above: Performed By: #### T SH, LIPID, CMP, URIC, T7, CRP #### [facility] Laboratory [address] [address] [address] Walker Gabriel UA RANDOM W/MICROSCOPICon BACTERIA MODERATE Abnormal NONE SEEN [facility] Comment on above: Performed By: #### U AMIC #### [facility] Laboratory [address] [address] [address] Walker Gabriel Bilirubin Ql (U) Negative Normal NEGATIVE [facility] Comment on above: Performed By: #### U AMIC #### [facility] [address] [address] [address] Walker Gabriel CAST NONE SEEN Normal NONE SEEN [facility] Comment on above: Performed By: #### U AMIC #### [facility] Laboratory [address] [address] [address] Walker Gabriel Clarity (U) CLEAR Normal CLEAR [facility] Comment on above: Performed By: #### U AMIC #### [facility] Laboratory [address] [address] [address] Walker Gabriel Color (U) YELLOW Normal YELLOW [facility] Comment on above: Performed By: #### U AMIC #### [facility] Laboratory [address] [place] [address] Dr. Walker Gabriel Crystals LM Nom (Urine sed) NONE SEEN Normal NONE SEEN [facility] Comment on above: Performed By: #### U AMIC #### [facility] Laboratory [address] [place] [address] Dr. Walker Gabriel Epithelial cells LM Ql (Urine sed) FEW Abnormal NONE SEEN /RARE [facility] Comment on above: Performed By: #### U AMIC #### [facility] Laboratory [address] [place] [address] Dr. Walker Gabriel Glucose Ql (U) Negative Normal NEGATIVE [facility] Comment on above: Performed By: #### U AMIC #### [facility] Laboratory [address] [place] [address] Dr. Walker Gabriel Hemoglobin Ql (U) TRACE-LYSED Abnormal NEGATIVE [facility] Comment on above: Performed By: #### U AMIC #### [facility] [address] [place] [address] Dr. Walker Gabriel Ketones Ql (U) Negative Normal NEGATIVE [facility] Comment on above: Performed By: #### U AMIC #### [facility] [address] [place] [address] Dr. Walker Gabriel LEUKOCYTES Negative Normal NEGATIVE [facility] Comment on above: Performed By: #### U AMIC #### [facility] [address] [place] [address] Dr. Walker Gabriel MUCOUS NONE SEEN Normal NONE SEEN [facility] Comment on above: Performed By: #### U AMIC #### [facility] [address] [place] [address] Dr. Walker Gabriel Nitrite Ql (U) Negative Normal NEGATIVE [facility] Comment on above: Performed By: #### U AMIC #### [facility] [address] [address] [address] Walker Gabriel pH (U) 6.0 [pH] Normal 5-9 [facility] Comment on above: Performed By: #### U AMIC #### [facility] [address] [address] [address] Walker Gabriel RBC 0-2 Normal 0-2 [facility] Comment on above: Performed By: #### U AMIC #### [facility] [address] [address] [address] Walker Gabriel SPEC GRAVITY >=1.030 Abnormal 1.005-<=1.025 [facility] Comment on above: Performed By: #### U AMIC #### [facility] [address] [place] [address] Dr. Walker Gabriel UA PROTEIN Negative Normal NEGATIVE/ TRACE [facility] Comment on above: Performed By: #### U AMIC #### [facility] [address] [place] [address] Dr. Walker Gabriel Urobilinogen Qn (U) 0.2 {Natalie'U}/dL Normal 0.2 - 1. 0 [facility] Comment on above: Performed By: #### U AMIC #### [facility] [address] [place] [address] Dr. Walker Gabriel WBC 2-5 Abnormal NONE SEEN [facility] Comment on above: Performed By: #### U AMIC #### [facility] Laboratory [address] [place] [address] Dr. Walker Gabriel XR KUB 1 VIEWon [...] by: PASCUAL GAMBLE Date: 2022-08-22 12:42 Normal [facility] Follow-Upon 08-21-2022 Follow-Up [id number] Rebecca Jewell iva M 1985 Provider Department Center 08/21/2022 CAROLE ENAMORADO MP ORTHO MPORTHO No family history on file Level of Service:84947 [place] OFFICE/OUTPATIENT ESTABLISHED LOW MDM 20-29 MIN Reason for Visit and Comments: Pain [136] Normal [facility] Clinical Supporton Clinical Support [id number] Rebecca Jewell iva M 1985 Provider Department [place] 08/06/2022 PARRISH STOVER MP DIETARY Medical Pavi Chart Close Cosign Required by: Samir Mendoza MD[1894] No family history on file Reason for Visit and Comments: Obesity [[id number]] Hypertension [378665] [facility] Erroneous Encounteron 2022 Erroneous Encounter [id number] Taj Jewellvenancio enrique M 1985 Provider Department [place] 08/06/2022 PARRISH STOVER MP DIETARY Medical Pavi No family history on file Reason for Visit and Comments: Error (VOID this visit) [77] [facility] Documentationon 07-31-2022 Documentation [id number] Taj Jewellvenancio enrique M 1985 Provider Department [place] 07/31/[address] [facility] NUTRN MD Medical C Chart Close Cosign Required by: Samir Mendoza MD[1894] No family history on file [facility] Follow-Upon 07-02-2022 Follow-Up [id number] Taj Jewellvenancio enrique M 1985 Date Provider Department Center 07/02/2022 PASCUAL HOPKINS MP PHYS MED Medical Pavi No family history on file Level of Service:66122 [place] OFFICE/OUTPATIENT ESTABLISHED MOD MDM 30-39 MIN Reason for Visit and Comments: Headache [52] Leg Pain [311159] - Right [facility] Refillon 05-28-2022 Refill [id number] Rebecca Jewell 1985 F Date Provider Department Center 05/28/2022 PASCUAL HOPKINS MP PHYS MED Medical Pavi No family history on file Reason for Visit and Comments: Med Refill [[id number]] Normal [facility] Follow-Upon 05-15-2022 Follow-Up [id number] Rebecca Jewell 1985 Date Provider Department Center 05/15/2022 RUFINO DICKERSON MP ORTHO MPORTHO Chart Close Cosign Required by: Rufino Perdomo MD[[id number]] No family history on file Level of Service:43868 [place] OFFICE/OUTPATIENT ESTABLISHED LOW MDM 20-29 MIN (GC) Reason for Visit and Comments: Follow-up [062624] - Follow up on left knee pain. [facility] Follow-Upon 04-30-2022 Follow-Up [id number] Rebecca Jewell 1985 Date Provider Department Center 04/30/2022 PASCUAL HOPKINS MP PHYS MED Medical Pavi No family history on file Level of Service:85559 [place] OFFICE/OUTPATIENT ESTABLISHED MOD MDM 30-39 MIN (GC) Reason for Visit and Comments: headaches [Other] Normal [facility] DARIO by IFAon 04-21-2022 Antinuclear Antibodies, IFA Negative Normal [facility] Comment on above: Result Comment: Nega tive <1:80 Borderline 1:80 Positive >1:80 ICAP nomenclature: AC-0 For more information about Hep-2 cell patterns use ANApatterns.org, the official website for the International Consensus on Antinuclear Antibody (DARIO) Patterns (ICAP). Performed By: #### T SH, LIPID, CMP, URIC, T7, CRP #### [facility] [address] [address] [address] Walker Gabriel SLE PROFILE Aon 04-21-2022 Anti-DNA (DS) Ab Qn 3 IU/mL Normal 0-[address] [facility] Comment on above: Result Comment: Nega tive <5 Equivocal 5 - 9 Positive >9 Performed By: #### S JUSTO #### [facility] [address] [address] [address] Walker Gabriel Antichromatin Antibodies <0.2 Normal 0.0-0.9 [facility] Comment on above: Performed By: #### S JUSTO #### [facility] [address] [place] [address] Dr. Walker Gabriel RA Latex Turbid. <10.0 Normal <14.0 [facility] Comment on above: Performed By: #### S JUSTO #### [facility] [address] [place] [address] Dr. Walker Gabriel CERTIFIED LEGAL INVESTIGATOR Antibodies <0.2 Normal 0.0-0.9 [facility] Comment on above: Performed By: #### S JUSTO #### [facility] [address] [place] [address] Dr. Walker Gabriel Sjogrlinda'lety Anti-SS-A <0.2 Normal 0.0-0.[address] [facility] Comment on above: Performed By: #### S JUSTO #### [facility] [address] [place] [address] Dr. Walker Gabriel Sjogrlinda's Anti-SS-B <0.2 Normal 0.0-0.9 [facility] Comment on above: Performed By: #### S JUSTO #### [facility] [address] [place] [address] Dr. Walker Gabriel Lemus Antibodies <0.2 Normal 0.0-0.9 [facility] Comment on above: Performed By: #### S JUSTO #### [facility] [address] [place] [address] Dr. Walker Gabriel ANTISTREPTOLYSIN O AB (ASO)o n 04-19-2022 Antistreptolysin O Ab 227.2 IU/mL Critically high 0.0-200.0 [facility] Comment on above: Performed By: #### T SH, LIPID, CMP, URIC, T7, CRP #### [facility] [address] [place] [address] Dr. Walker Gabriel INSULINon 04-19-2022 Insulin 20.8 uIU/mL Normal 2.6-24.9 [facility] Comment on above: Performed By: #### T SH, LIPID, CMP, URIC, T7, CRP #### [facility] [address] [place] [address] Dr. Walker Gabriel CBC AUTO DIFFon 04-18-2022 BASO # 0.0 103/ul Normal 0.0-0.1 [facility] Comment on above: Performed By: #### T SH, LIPID, CMP, URIC, T7, CRP #### [facility] [address] [place] [address] Dr. Walker Gabriel Basophils/100 WBC (Bld) 0.4 % Normal 0.2-2.0 [facility] Comment on above: Performed By: #### T SH, LIPID, CMP, URIC, T7, CRP #### [facility] [address] [place] [address] Dr. Walker Gabriel EO # 0.1 103/ul Normal 0.0-0.7 [facility] Comment on above: Performed By: #### T SH, LIPID, CMP, URIC, T7, CRP #### [facility] [address] [place] [address] Dr. Walker Gabriel Eosinophils/100 WBC (Bld) 1.4 % Normal 0.9-7.0 [facility] Comment on above: Performed By: #### T SH, LIPID, CMP, URIC, T7, CRP #### [facility] [address] [place] [address] Dr. Walker Gabriel Erythrocyte distribution width (RBC) [Ratio] 12.8 % Normal 11.0-15.0 [facility] Comment on above: Performed By: #### T SH, LIPID, CMP, URIC, T7, CRP #### [facility] [address] [place] [address] Dr. Walker Gabriel Hematocrit (Bld) [Volume fraction] 38.1 % Normal 36.0-48.0 [facility] Comment on above: Performed By: #### T SH, LIPID, CMP, URIC, T7, CRP #### [facility] [address] [place] [address] Dr. Walker Gabriel Hemoglobin (Bld) [Mass/Vol] 12.3 g/dL Normal 12.0-16.0 [facility] Comment on above: Performed By: #### T SH, LIPID, CMP, URIC, T7, CRP #### [facility] [address] [place] [address] Dr. Walker Gabriel IG # 0.03 10e3/ul Normal 0.00-0.03 [facility] Comment on above: Performed By: #### T SH, LIPID, CMP, URIC, T7, CRP #### [facility] [address] [place] [address] Dr. Walker Gabriel IG % 0.4 % Normal 0.0-0.5 [facility] Comment on above: Performed By: #### T SH, LIPID, CMP, URIC, T7, CRP #### [facility] [address] [place] [address] Dr. Walker Gabriel LYMPH # 2.6 103/ul Normal 1.2-3.8 [facility] Comment on above: Performed By: #### T SH, LIPID, CMP, URIC, T7, CRP #### [facility] [address] [place] [address] Dr. Walker Gabrile Lymphocytes/100 WBC (Bld) 35.5 % Normal 20.5-60.0 [facility] Comment on above: Performed By: #### T SH, LIPID, CMP, URIC, T7, CRP #### [facility] [address] [place] [address] Dr. Walker Gabriel MANUAL DIFF REQ NO Normal [facility] Comment on above: Performed By: #### T SH, LIPID, CMP, URIC, T7, CRP #### [facility] [address] [place] [address] Dr. Walker Gabriel MCH (RBC) [Entitic mass] 28.7 pg Normal 26.7-34.0 [facility] Comment on above: Performed By: #### T SH, LIPID, CMP, URIC, T7, CRP #### [facility] [address] [place] [address] Dr. Walker Gabriel MCHC (RBC) [Mass/Vol] 32.3 g/dL Normal 29.9-35.2 [facility] [facility] Comment on above: Performed By: #### T SH, LIPID, CMP, URIC, T7, CRP #### [facility] [address] [place] [address] Dr. Walker Gabriel MCV (RBC) [Entitic vol] 88.8 fL Normal 81.0-99.0 [facility] Comment on above: Performed By: #### T SH, LIPID, CMP, URIC, T7, CRP #### [facility] [address] [place] [address] Dr. Walker Gabriel MONO # 0.4 103/ul Normal 0.3-0.8 [facility] Comment on above: Performed By: #### T SH, LIPID, CMP, URIC, T7, CRP #### [facility] [address] [place] [address] Dr. Walker Gabriel Monocytes/100 WBC (Bld) 6.1 % Normal 1.7-12.0 [facility] Comment on above: Performed By: #### T SH, LIPID, CMP, URIC, T7, CRP #### [facility] [address] [place] [address] Dr. Walker Gabriel NEUT # 4.0 103/ul Normal 1.4-6.5 The [facility] Comment on above: Performed By: #### T SH, LIPID, CMP, URIC, T7, CRP #### [facility] [address] [place] [address] Dr. Walker Gabriel Neutrophils/100 WBC (Bld) 56.2 % Normal 43.0-75.0 The [facility] Comment on above: Performed By: #### T SH, LIPID, CMP, URIC, T7, CRP #### [facility] [address] [place] [address] Dr. Walker Gabriel Platelet mean volume (Bld) [Entitic vol] 8.3 fL Critically low 9.5-13.5 The [facility] Comment on above: Performed By: #### T SH, LIPID, CMP, URIC, T7, CRP #### [facility] [address] [place] [address] Dr. Walker Gabriel PLT 328 103/ul Normal 150-450 The [facility] Comment on above: Performed By: #### T SH, LIPID, CMP, URIC, T7, CRP #### [facility] [address] [address] [address] Walker Gabriel RBC 4.29 106/ul Normal 4.20-5.40 The [facility] Comment on above: Performed By: #### T SH, LIPID, CMP, URIC, T7, CRP #### [facility] [address] [address] [address] Walker Gabriel WBC 7.2 103/ul Normal 4.0-11.0 [facility] Comment on above: Performed By: #### T SH, LIPID, CMP, URIC, T7, CRP #### [facility] [address] [place] [address] Dr. Walker Gabriel CRPon 04-18-2022 CRP 1.3 mg/dL Critically high <=1.0 [facility] Comment on above: Performed By: #### T SH, LIPID, CMP, URIC, T7, CRP #### [facility] [address] [place] [address] Dr. Walker Gabriel FREE THYROXINE INDEX T7on FTI 2.91 Normal 1.30-4.50 [facility] Comment on above: Performed By: #### T SH, LIPID, CMP, URIC, T7, CRP #### [facility] [address] [place] [address] Dr. Walker Gabriel T3U 31.0 % Normal 30.0-39.0 [facility] Comment on above: Performed By: #### T SH, LIPID, CMP, URIC, T7, CRP #### [facility] [address] [place] [address] Dr. Walker Gabriel T4 [Mass/Vol] 9.40 ug/dL Normal 4.80-13.90 [facility] Comment on above: Performed By: #### T SH, LIPID, CMP, URIC, T7, CRP #### [facility] [address] [place] [address] Dr. Walker Gabriel GLYCOHEMOGLOBIN A1Con 2021 ADA RECOMMENDATION SEE BELOW Normal [facility] Comment on above: Result Comment: ADA RECOMMENDED LIMIT 4.0 - 6.0 ADA THERAPEUTIC TARGET < 7.0 ACTION SUGGESTED > 7.0 Performed By: #### T SH, LIPID, CMP, URIC, T7, CRP #### [facility] [address] [place] [address] Dr. Walker Gabriel Glucose [Mass/Vol] 114 mg/dL Normal [facility] Comment on above: Performed By: #### T SH, LIPID, CMP, URIC, T7, CRP #### [facility] [address] [address] [address] Walker Gabriel HbA1c (Bld) [Mass fraction] 5.6 % Normal 4.5-6.2 [facility] Comment on above: Performed By: #### T SH, LIPID, CMP, URIC, T7, CRP #### [facility] [address] [place] [address] Dr. Walker Gabriel IRONon 04-18-2022 Iron [Mass/Vol] 34.0 ug/dL Critically low 50.0-170.[address] [facility] Comment on above: Performed By: #### I FRANCISCO #### [facility] [address] [place] [address] Dr. Walker Gabriel LIPID PROFILEon 04-18-2022 CHOL-HDL RATIO NORM SEE BELOW Normal [facility] Comment on above: Result Comment: 3.3 - 4.4 LOW RISK 4.4 - 7.1 AVERAGE RISK 7.1 - 11.0 MODERATE RISK >11.0 HIGH RISK Performed By: #### T SH, LIPID, CMP, URIC, T7, CRP #### [facility] [address] [place] [address] Dr. Walker Gabriel Cholesterol [Mass/Vol] 174 mg/dL Normal <=200 [facility] Comment on above: Performed By: #### T SH, LIPID, CMP, URIC, T7, CRP #### [facility] [address] [place] [address] Dr. Walker Gabriel Cholesterol in HDL [Mass/Vol] 70 mg/dL Critically high 40-60 The [facility] Comment on above: Performed By: #### T SH, LIPID, CMP, URIC, T7, CRP #### [facility] [address] [address] [address] Walker Gabriel Cholesterol in LDL [Mass/Vol] 92.8 mg/dL Normal [facility] Comment on above: Performed By: #### T SH, LIPID, CMP, URIC, T7, CRP #### [facility] [address] [address] [address] Walker Gabriel Cholesterol.total/Ch olesterol in HDL [Mass ratio] 2.5 {ratio} Normal [facility] Comment on above: Performed By: #### T SH, LIPID, CMP, URIC, T7, CRP #### [facility] [address] [address] [address] Walker Gabriel HDL NORMAL > or = 60 mg/dl - LO W CARDIOVASCULAR RISK <40 mg/dl - HIGH CARDIOVASCULAR RISK Normal [facility] Comment on above: Performed By: #### T SH, LIPID, CMP, URIC, T7, CRP #### [facility] [address] [address] [address] Walker Gabriel LDL CALC NORMAL SEE BELOW Normal [facility] Comment on above: Result Comment: <100 mg/dl OPTIMAL 100 - 129 mg/dl NEAR OR ABOVE OPTIMAL 130 - 159 mg/dl BORDERLINE HIGH 160 - 189 mg/dl HIGH >190 mg/dl VERY HIGH Performed By: #### T SH, LIPID, CMP, URIC, T7, CRP #### [facility] [address] [address] [address] Walker Gabriel Triglyceride [Mass/Vol] 56 mg/dL Normal <=150 The [facility] Comment on above: Performed By: #### T SH, LIPID, CMP, URIC, T7, CRP #### [facility] [address] [address] [address] Walker Gabriel VLDL CALC 11.2 mg/dL Normal [facility] Comment on above: Performed By: #### T SH, LIPID, CMP, URIC, T7, CRP #### [facility] [address] [address] [address] Walker Gabriel PROF 14(COMP METB)on 10-21-2 022 Albumin [Mass/Vol] 3.0 g/dL Critically low 3.4-5.0 Th e [facility] Comment on above: Performed By: #### T SH, LIPID, CMP, URIC, T7, CRP #### [facility] [address] [place] [address] Dr. Walker Gabriel Albumin/Globulin [Mass ratio] 0.6 {ratio} Normal [facility] Comment on above: Performed By: #### T SH, LIPID, CMP, URIC, T7, CRP #### [facility] [address] [place] [address] Dr. Walker Gabriel ALP [Catalytic activity/Vol] 102 U/L Normal 46-116 [facility] Comment on above: Performed By: #### T SH, LIPID, CMP, URIC, T7, CRP #### [facility] [address] [place] [address] Dr. Walker Gabriel ALT [Catalytic activity/Vol] 19 U/L Normal 14-59 [facility] Comment on above: Performed By: #### T SH, LIPID, CMP, URIC, T7, CRP #### [facility] [address] [place] [address] Dr. Walker Gabriel Anion gap [Moles/Vol] 7.9 mmol/L Normal [facility] Comment on above: Performed By: #### T SH, LIPID, CMP, URIC, T7, CRP #### [facility] [address] [place] [address] Dr. Walker Gabriel AST [Catalytic activity/Vol] 12 U/L Critically low 15-37 [facility] Comment on above: Performed By: #### T SH, LIPID, CMP, URIC, T7, CRP #### [facility] [address] [place] [address] Dr. Walker Gabriel Bilirubin [Mass/Vol] 0.1 mg/dL Critically low 0.2-1.0 [facility] Comment on above: Performed By: #### T SH, LIPID, CMP, URIC, T7, CRP #### [facility] [address] [place] [address] Dr. Walker Gabriel Calcium [Mass/Vol] 8.9 mg/dL Normal 8.5-10.1 [facility] Comment on above: Performed By: #### T SH, LIPID, CMP, URIC, T7, CRP #### [facility] [address] [address] [address] Walker Gabriel Chloride [Moles/Vol] 103 mmol/L Normal 98-107 The [facility] Comment on above: Performed By: #### T SH, LIPID, CMP, URIC, T7, CRP #### [facility] [address] [address] [address] Walker Gabriel CO2 [Moles/Vol] 28.4 mmol/L Normal 21.0-32.0 [facility] Comment on above: Performed By: #### T SH, LIPID, CMP, URIC, T7, CRP #### [facility] [address] [place] [address] Dr. Walker Gabriel Creatinine [Mass/Vol] 0.91 mg/dL Normal 0.55-1.02 The [facility] Comment on above: Performed By: #### T SH, LIPID, CMP, URIC, T7, CRP #### [facility] [address] [place] [address] Dr. Walker Gabriel EGFR-AF YEMENI >60 Normal >=60 [facility] Comment on above: Performed By: #### T SH, LIPID, CMP, URIC, T7, CRP #### [facility] [address] [place] [address] Dr. Walker Gabriel EGFR-NON AF YEMENI >60 Normal >=60 The [facility] Comment on above: Performed By: #### T SH, LIPID, CMP, URIC, T7, CRP #### [facility] [address] [place] [address] Dr. Walker Gabriel Globulin (S) [Mass/Vol] 4.7 g/dL Normal [facility] Comment on above: Performed By: #### T SH, LIPID, CMP, URIC, T7, CRP #### [facility] [address] [address] [address] Walker Gabriel Glucose [Mass/Vol] 87 mg/dL Normal 74-106 [facility] Comment on above: Performed By: #### T SH, LIPID, CMP, URIC, T7, CRP #### [facility] [address] [place] [address] Dr. Walker Gabriel Potassium [Moles/Vol] 4.3 mmol/L Normal 3.5-5.1 [facility] Comment on above: Performed By: #### T SH, LIPID, CMP, URIC, T7, CRP #### [facility] [address] [place] [address] Dr. Walker Gabriel Protein [Mass/Vol] 7.7 g/dL Normal 6.4-8.2 [facility] Comment on above: Performed By: #### T SH, LIPID, CMP, URIC, T7, CRP #### [facility] [address] [place] [address] Dr. Walker Gabriel Sodium [Moles/Vol] 135 mmol/L Critically low 136-145 [facility] Comment on above: Performed By: #### T SH, LIPID, CMP, URIC, T7, CRP #### [facility] [address] [place] [address] Dr. Walker Gabriel Urea nitrogen [Mass/Vol] 21.0 mg/dL Critically high 7.0-18.0 [facility] Comment on above: Performed By: #### T SH, LIPID, CMP, URIC, T7, CRP #### [facility] [address] [place] [address] Dr. Walker Gabriel Urea nitrogen/Creatinine [Mass ratio] 23.1 mg/mg Normal [facility] Comment on above: Performed By: #### T SH, LIPID, CMP, URIC, T7, CRP #### [facility] [address] [place] [address] Dr. Walker Gabriel TSHon 04-18-2022 TSH 2.570 uIU/mL Normal 0.358-3.740 [facility] Comment on above: Performed By: #### T SH, LIPID, CMP, URIC, T7, CRP #### [facility] [address] [place] [address] Dr. Walker Gabriel URIC ACID SERUMon 04-18-2022 Urate [Mass/Vol] 5.7 mg/dL Normal 2.6-6.0 [facility] Comment on above: Performed By: #### T SH, LIPID, CMP, URIC, T7, CRP #### [facility] [address] [place] [address] Dr. Walker Gabriel US VENOUS DOPPLER L [...] left arm *Exam performed in accordance with [facility] practice guidelines- Peripheral venous ultrasound, September 22, 2009. Electronically authenticated by: JENNY ARIAS Date: 2022-04-18 18:43 Normal [facility] Clinical Supporton 2 Clinical Support [id number] Rebecca Jewell 1985 [facility] Provider Department [place] 04/17/2022 MARISA SIMON [facility] No family history on file Reason for Visit and Comments: Worker's Compensation [732] Follow-up [919875] Concussion [425471] Normal [facility] Follow-Upon 04-03-2022 Follow-Up [id number] Rebecca Jewell 1985 [facility] Department [place] 04/03/2022 [facility] Close Cosign Required by: Rufino Perdomo MD[[id number]] No family history on file Level of Service:38399 [place] OFFICE/OUTPATIENT ESTABLISHED LOW MDM 20-29 MIN (GC) Reason for Visit and Comments: Pain [136] Edema [[id number]] Follow-up [312405] Normal [facility] Erroneous Encounteron 2021 Erroneous Encounter [id number] Rebecca Jewell 1985 [facility] Provider Department [place] 03/31/2022 [id number]-LINDA TOPETE [facility] No family history on file Reason for Visit and Comments: Error (VOID this visit) [77] Normal [facility] CNOVon 02-03-2022 CNOV Office Visit ([facility] ) NABILA JEWELL ([id number]) 1985 F Date Time Provider Department 02/03/22 11:00 AM CHAS ROMERO NMUA During your visit today, we recorded the following information about you: Pulse Blood pressure Weight Height 66/minute 117/84 122.7 kg 1.549 m Chas Romero DO 02/03/2022 11:27 AM Signed [facility] Follow up Visit SERVICE DATE: 02/03/2022 PCP: Smiley Urias MD [address] [place] [address] Reason for Evaluation: Consultation requested by Self for an opinion regarding right leg weakness Family/Friend accompanying the patient today: none HPI: This is Ms. Nabila Jewell, a 36 year old female who presents to the [facility] with the chief complaint above. 02/03/2022: She [...] get up after this. She went to [facility] in [place]. She was evaluated and did testing and [...] VIII: He (more content not included)... Normal [facility] Javier 01-30-2022 [facility] Telephone (NEURST) NABILA JEWELL ([id number]) 1985 F Date Time Provider Department 01/30/22 [...] Status:Closed by CHAS ROMERO on 01/30/22 Normal [facility] MRI KNEE LT WO CONon 022 [...] by: SMILEY CALVILLO Date: 2022-01-28 12:18 Normal [facility] EMG(NEURO/NI)on 01-23-2022 [facility] MG MAMM DIAGNOSTIC 3D GREGORY CA Don 01-22-2022 MG MAMM DIAGNOSTIC 3D GREGORY CAD Patient: NABILA JEWELL. Exam Date: 01/22/2022 : 1985 Gender:F Ordering : DR SMILEY URIAS . Admission #: [id number] Family : Order #: [id number] CLICK HERE TO VIEW EXAM RADIOLOGY REPORT [...] Treatments None Family Cancers None LOCATION: The [facility] BREAST COMPOSITION: Scattered areas fibroglandular density. FINDINGS: [...] Gamble M.D. on 01/22/2022 at 15:30 Normal [facility] CNPN Telephone (NECAMN) ROMAN,NABILA M ([id number]) 1985 F Date Time Provider Department 12/06/21 CHAS ROMERO NENMMN During your visit today, we recorded the [...] Fully Assessed Reason for Visit: Insurance Authorization [[id number]] Prescriptions as of 12/08/2021 - potassium chloride [...] Encounter Status:Closed by SKY RAPP on 12/06/21 [facility] 11-15-2021 [facility] Telephone (NMUA) NABILA JEWELL ([id number]) 1985 F Date Time Provider Department 5/20/22 CHAS ROMERO [facility] During your visit today, we recorded the following information about you: Rosana Shaw 11/15/2021 10:02 AM Addendum Pt requesting Dr. Romero send in C9 to workers comp for EMG. Cecilyiva phone [phone] ext [phone] Kassy PLEASE FAX TO:[phone] Also needs this faxed to transactional attorneyBipin Quigley Hines, [employer] L[employer] Pt will call back with fax [...] Encounter Status:Closed by ROSANA VALVERDE on 04/03/22 [facility] CNOVon 11-12-2021 CNOV Office Visit ([facility] ) NABILA JEWELL ([id number]) 1985 F Date Time Provider Department 11/12/21 2:00 PM CINDICHAS LAWS [facility] During your visit today, we recorded the following information about you: Pulse Blood pressure Weight Height 69/minute 120/82 118.6 kg 1.549 m Chas Romero DO 11/12/2021 2:58 PM Signed [facility] New Patient Visit SERVICE DATE: 11/12/2021 PCP: [place] [address] [place] [address] Reason for Evaluation: Consultation requested by Self for an opinion regarding right leg weakness Family/Friend accompanying the patient today: none HPI: This is Ms. Nabila Jewell, a 36 year old female who presents to the [facility] with the chief complaint above. She had an injury at work (March 2021)-she fell and hit her head on a prep table and fell onto her knee. She had difficulty moving to get up after this. She went to [facility] in [place]. She was evaluated and did testing and [...] (more content not included)... [facility]NENMMN) NABILA JEWELL ([id number]) 1985 F Date Time Provider Department 10/22/21 [facility] During your visit today, we recorded the following information about you: Sky Rapp 10/22/2021 10:54 AM Signed Referral, medical records received and scanned in for review. Allergies As of Date: 10/22/2021 (No Known Allergies) Date Reviewed: 06/14/2015 Reviewed by: Marly Fitzpatrick - Fully Assessed Reason for Visit: Received Outside Medical Records [[id number]] Prescriptions as of 10/22/2021 - Hydrochlorothiazide 12.5 [...] Status:Closed by SKY RAPP on 10/22/21 Normal [facility] CARDIAC MACIE 3-6on 2 CK [Catalytic activity/Vol] 135 U/L Normal 30-135 [facility] Comment on above: Performed By: #### C MREP #### [facility] [address] [address] [address] Walker Gabriel CK.MB [Mass/Vol] 0.84 ng/mL Normal <=2.37 [facility] Comment on above: Performed By: #### C MREP #### [facility] [address] [address] [address] Walker Gabriel HSTROP 8.5 pg/mL Normal 4.0-35.5 [facility] Comment on above: Result Comment: CUT- OFF POINTS HAVE BEEN ESTABLISHED BASED ON THE FOURTH UNIVERSAL DEFINITIONS OF MYOCARDIAL INFARCTION. THE UPPER REFERENCE LIMIT (URL) OF TROPONIN, DEFINED THE 99TH PERCENTILE OF cTnI DISTRIBUTION IN A REFERENCE POPULATION, HAS BEEN CONFIRMED THE DECISION THRESHOLD FOR NE DIAGNOSIS. Performed By: #### C MREP #### [facility] [address] [place] [address] Dr. Walker Gabriel CARDIAC MACIE ADMITon 022 CK [Catalytic activity/Vol] 114 U/L Normal 30-135 [facility] Comment on above: Performed By: #### T SH, LIPID, CMP, URIC, T7, CRP #### [facility] [address] [place] [address] Dr. Walker Gabriel CK.MB [Mass/Vol] 0.71 ng/mL Normal <=2.37 [facility] Comment on above: Performed By: #### T SH, LIPID, CMP, URIC, T7, CRP #### [facility] [address] [place] [address] Dr. Walker Gabriel HSTROP 6.1 pg/mL Normal 4.0-35.5 [facility] Comment on above: Result Comment: CUT- OFF POINTS HAVE BEEN ESTABLISHED BASED ON THE FOURTH UNIVERSAL DEFINITIONS OF MYOCARDIAL INFARCTION. THE UPPER REFERENCE LIMIT (URL) OF TROPONIN, DEFINED THE 99TH PERCENTILE OF cTnI DISTRIBUTION IN A REFERENCE POPULATION, HAS BEEN CONFIRMED THE DECISION THRESHOLD FOR NE DIAGNOSIS. Performed By: #### T SH, LIPID, CMP, URIC, T7, CRP #### [facility] [address] [place] [address] Dr. Walker Gabriel COLLINS 43.0 ng/mL Normal <=61.5 [facility] Comment on above: Performed By: #### T SH, LIPID, CMP, URIC, T7, CRP #### [facility] [address] [place] [address] Dr. Walker Gabriel CBC AUTO DIFFon 09-06-2021 BASO # 0.0 103/ul Normal 0.0-0.1 [facility] Comment on above: Performed By: #### T SH, LIPID, CMP, URIC, T7, CRP #### [facility] [address] [place] [address] Dr. Walker Gabriel Basophils/100 WBC (Bld) 0.5 % Normal 0.2-2.0 [facility] Comment on above: Performed By: #### T SH, LIPID, CMP, URIC, T7, CRP #### [facility] [address] [place] [address] Dr. Walker Gabriel EO # 0.0 103/ul Normal 0.0-0.7 [facility] Comment on above: Performed By: #### T SH, LIPID, CMP, URIC, T7, CRP #### [facility] [address] [place] [address] Dr. Walker Gabriel Eosinophils/100 WBC (Bld) 0.1 % Critically low 0.9-7.0 The [facility] Comment on above: Performed By: #### T SH, LIPID, CMP, URIC, T7, CRP #### [facility] [address] [place] [address] Dr. Walker Gabriel Erythrocyte distribution width (RBC) [Ratio] 12.3 % Normal 11.0-15.0 [facility] Comment on above: Performed By: #### T SH, LIPID, CMP, URIC, T7, CRP #### [facility] [address] [place] [address] Dr. Walker Gabriel Hematocrit (Bld) [Volume fraction] 41.4 % Normal 36.0-48.0 [facility] Comment on above: Performed By: #### T SH, LIPID, CMP, URIC, T7, CRP #### [facility] [address] [place] [address] Dr. Walker Gabriel Hemoglobin (Bld) [Mass/Vol] 13.6 g/dL Normal 12.0-16.0 [facility] Comment on above: Performed By: #### T SH, LIPID, CMP, URIC, T7, CRP #### [facility] [address] [place] [address] Dr. Walker Gabriel IG # 0.02 10e3/ul Normal 0.00-0.03 The [facility] Comment on above: Performed By: #### T SH, LIPID, CMP, URIC, T7, CRP #### [facility] [address] [place] [address] Dr. Walker Gabriel IG % 0.2 % Normal 0.0-0.5 The [facility] Comment on above: Performed By: #### T SH, LIPID, CMP, URIC, T7, CRP #### [facility] [address] [place] [address] Dr. Walker Gabriel LYMPH # 2.6 103/ul Normal 1.2-3.8 The [facility] Comment on above: Performed By: #### T SH, LIPID, CMP, URIC, T7, CRP #### [facility] [address] [place] [address] Dr. Walker Gabriel Lymphocytes/100 WBC (Bld) 32.4 % Normal 20.5-60.0 [facility] Comment on above: Performed By: #### T SH, LIPID, CMP, URIC, T7, CRP #### [facility] [address] [place] [address] Dr. Walker Gabriel MANUAL DIFF REQ NO Normal [facility] Comment on above: Performed By: #### T SH, LIPID, CMP, URIC, T7, CRP #### [facility] [address] [place] [address] Dr. Walker Gabriel MCH (RBC) [Entitic mass] 28.8 pg Normal 26.7-34.0 The [facility] Comment on above: Performed By: #### T SH, LIPID, CMP, URIC, T7, CRP #### [facility] [address] [place] [address] Dr. Walker Gabriel MCHC (RBC) [Mass/Vol] 32.9 g/dL Normal 29.9-35.2 The [facility] Comment on above: Performed By: #### T SH, LIPID, CMP, URIC, T7, CRP #### [facility] [address] [place] [address] Dr. Walker Gabriel MCV (RBC) [Entitic vol] 87.5 fL Normal 81.0-99.0 The [facility] Comment on above: Performed By: #### T SH, LIPID, CMP, URIC, T7, CRP #### [facility] [address] [place] [address] Dr. Walker Gabriel MONO # 0.4 103/ul Normal 0.3-0.8 The [facility] Comment on above: Performed By: #### T SH, LIPID, CMP, URIC, T7, CRP #### [facility] [address] [place] [address] Dr. Walker Gabriel Monocytes/100 WBC (Bld) 5.0 % Normal 1.7-12.0 [facility] Comment on above: Performed By: #### T SH, LIPID, CMP, URIC, T7, CRP #### [facility] [address] [place] [address] Dr. Walker Gabriel NEUT # 5.0 103/ul Normal 1.4-6.5 The [facility] Comment on above: Performed By: #### T SH, LIPID, CMP, URIC, T7, CRP #### [facility] [address] [place] [address] Dr. Walker Gabriel Neutrophils/100 WBC (Bld) 61.8 % Normal 43.0-75.0 The [facility] Comment on above: Performed By: #### T SH, LIPID, CMP, URIC, T7, CRP #### [facility] [address] [place] [address] Dr. Walker Gabriel Platelet mean volume (Bld) [Entitic vol] 8.4 fL Critically low 9.5-13.5 The [facility] Comment on above: Performed By: #### T SH, LIPID, CMP, URIC, T7, CRP #### [facility] [address] [place] [address] Dr. Walker Gabriel PLT 347 103/ul Normal 150-450 [facility] Comment on above: Performed By: #### T SH, LIPID, CMP, URIC, T7, CRP #### [facility] [address] [place] [address] Dr. Walker Gabriel RBC 4.73 106/ul Normal 4.20-5.40 [facility] Comment on above: Performed By: #### T SH, LIPID, CMP, URIC, T7, CRP #### [facility] [address] [place] [address] Dr. Walker Gabriel WBC 8.1 103/ul Normal 4.0-11.0 [facility] Comment on above: Performed By: #### T SH, LIPID, CMP, URIC, T7, CRP #### [facility] [address] [place] [address] Dr. Walker Gabriel CRPon 09-06-2021 CRP 0.7 mg/dL Normal <=1.0 [facility] Comment on above: Performed By: #### T SH, LIPID, CMP, URIC, T7, CRP #### [facility] [address] [place] [address] Dr. Walker Gabriel PROF CHEM 8 (BAS METB)on Anion gap [Moles/Vol] 10.2 mmol/L Normal [facility] Comment on above: Performed By: #### T SH, LIPID, CMP, URIC, T7, CRP #### [facility] [address] [place] [address] Dr. Walker Gabriel Calcium [Mass/Vol] 9.0 mg/dL Normal 8.4-10.2 [facility] Comment on above: Performed By: #### T SH, LIPID, CMP, URIC, T7, CRP #### [facility] [address] [place] [address] Dr. Walker Gabriel Chloride [Moles/Vol] 99 mmol/L Normal 98-107 [facility] Comment on above: Performed By: #### T SH, LIPID, CMP, URIC, T7, CRP #### [facility] [address] [place] [address] Dr. Walker Gabriel CO2 [Moles/Vol] 26.5 mmol/L Normal 22.0-30.0 [facility] Comment on above: Performed By: #### T SH, LIPID, CMP, URIC, T7, CRP #### [facility] [address] [place] [address] Dr. Walker Gabriel Creatinine [Mass/Vol] 1.19 mg/dL Critically high 0.52-1.04 [facility] Comment on above: Performed By: #### T SH, LIPID, CMP, URIC, T7, CRP #### [facility] [address] [place] [address] Dr. Walker Gabriel EGFR-AF YEMENI >60 Normal >=60 [facility] Comment on above: Performed By: #### T SH, LIPID, CMP, URIC, T7, CRP #### [facility] [address] [place] [address] Dr. Walkre Gabriel EGFR-NON AF YEMENI 51 mL/min/1.73m2 Critically low >=60 [facility] Comment on above: Performed By: #### T SH, LIPID, CMP, URIC, T7, CRP #### [facility] [address] [place] [address] Dr. Walker Gabriel Glucose [Mass/Vol] 105 mg/dL Normal 74-106 [facility] Comment on above: Performed By: #### T SH, LIPID, CMP, URIC, T7, CRP #### [facility] [address] [place] [address] Dr. Walker Gabriel Potassium [Moles/Vol] 3.7 mmol/L Normal 3.4-5.0 [facility] Comment on above: Performed By: #### T SH, LIPID, CMP, URIC, T7, CRP #### [facility] [address] [place] [address] Dr. Walker Gabriel Sodium [Moles/Vol] 132 mmol/L Critically low 137-145 [facility] Comment on above: Performed By: #### T SH, LIPID, CMP, URIC, T7, CRP #### [facility] [address] [place] [address] Dr. Walker Gabriel Urea nitrogen [Mass/Vol] 15.0 mg/dL Normal 7.0-17.0 [facility] Comment on above: Performed By: #### T SH, LIPID, CMP, URIC, T7, CRP #### [facility] [address] [place] [address] Dr. Walker Gabriel Urea nitrogen/Creatinine [Mass ratio] 12.6 mg/mg Normal [facility] Comment on above: Performed By: #### T SH, LIPID, CMP, URIC, T7, CRP #### [facility] [address] [place] [address] Dr. Walker Gabriel SED RATE [facility] 2021 SED RATE 49 mm/hr Critically high <=20 [facility] Comment on above: Performed By: #### T SH, LIPID, CMP, URIC, T7, CRP #### [facility] [address] [place], [place] [address] Dr. Walker Gabriel XR CHEST 2 Von [...] by: CANDICE PONCE Date: 2021-09-06 20:51 Normal [facility] April 09, 2021 Smiley Bridgett, [address] [facility] [facility] [place] [place] [address] [place] [address] Re: NABILA JEWELL Date of : 1985 Thank you for your referral of Nabila Jewell who was seen on consultation for abscess x 2. I have enclosed my consultation note for your review. Sincerely, Edson Davalos MD General Surgery Normal [facility] Facesheeton 04-08-2021 Facesheet [id number] 0CD:127 Normal [facility] Ambulatory Clinical Summaryo n 04-03-2021 Ambulatory Clinical Summary {[id number] }[id number] Normal [facility] Physician Referralon 021 Physician Referral [id number]#[id number] 0CD:127 Normal [facility] SYPHILIS SCREENING WITH REFL EXon 03-06-2021 SYPHILIS TOTAL AB Non-Reactive Normal NONREACTIVE [facility] Comment on above: Result Comment: No s ignificant level of Treponema pallidum antibody detected. Repeat testing in 2 to 4 weeks may be considered if early infection or incubating syphilis infection is suspected. Performed By: #### S YPHR #### [facility] [address] [place] [address] BILIRUBIN,DIRECTon 1 Bilirubin.indirect [Mass/Vol] 0.1 mg/dL Normal 0.0 - 0.3 [facility] Comment on above: Performed By: #### D BILI #### [address] [id number] CBC AND DIFFERENTIALon 03-05 % AUTOMATED IMMATURE GRAN 0.3 % Normal 0.0 - 0.9 [facility] Comment on above: Result Comment: Cassia ture Granulocyte Count (IG) includes promyelocytes, myelocytes and metamyelocytes but does not include bands. Percent differential counts (%) should be interpreted in the context of the absolute cell counts (cells/L). Performed By: #### C BCDF #### [address] [id number] Basophils (Bld) [#/Vol] 0.02 10*3/uL Normal 0.00 - 0.10 [facility] Comment on above: Performed By: #### C BCDF #### [address] [id number] Basophils/100 WBC (Bld) 0.3 % Normal 0.0 - 2.0 [facility] Comment on above: Performed By: #### C BCDF #### [address] [id number] Eosinophils (Bld) [#/Vol] 0.04 10*3/uL Normal 0.00 - 0.70 [facility] Comment on above: Performed By: #### C BCDF #### [address] [id number] Eosinophils/100 WBC (Bld) 0.6 % Normal 0.0 - 6.0 [facility] Comment on above: Performed By: #### C BCDF #### [address] [id number] Erythrocyte distribution width (RBC) [Ratio] 12.2 % Normal 11.5 - 14.5 [facility] Comment on above: Performed By: #### C BCDF #### [address] [id number] Hematocrit (Bld) [Volume fraction] 38.3 % Normal 36.0 - 46.0 [facility] Comment on above: Performed By: #### C BCDF #### [address] [id number] Hemoglobin (Bld) [Mass/Vol] 12.0 g/dL Normal 12.0 - 16.0 [facility] Comment on above: Performed By: #### C BCDF #### [address] [id number] Lymphocytes (Bld) [#/Vol] 2.33 10*3/uL Normal 1.20 - 4.80 [facility] Comment on above: Performed By: #### C BCDF #### [address] [id number] Lymphocytes/100 WBC (Bld) 35.6 % Normal 13.0 - 44.0 [facility] Comment on above: Performed By: #### C BCDF #### [address] [id number] MCHC (RBC) [Mass/Vol] 31.3 g/dL Low 32.0 - 36.0 [facility] Comment on above: Performed By: #### C BCDF #### [address] [id number] MCV (RBC) [Entitic vol] 93 fL Normal 80 - 100 [facility] Comment on above: Performed By: #### C BCDF #### [address] [id number] Monocytes (Bld) [#/Vol] 0.34 10*3/uL Normal 0.10 - 1.00 [facility] Comment on above: Performed By: #### C BCDF #### [address] [id number] Monocytes/100 WBC (Bld) 5.2 % Normal 2.0 - 10.0 [facility] Comment on above: Performed By: #### C BCDF #### [address] [id number] Neutrophils (Bld) [#/Vol] 3.80 10*3/uL Normal 1.20 - 7.70 [facility] Comment on above: Performed By: #### C BCDF #### [address] [id number] Neutrophils/100 WBC (Bld) 58.0 % Normal 40.0 - 80.0 [facility] Comment on above: Performed By: #### C BCDF #### [address] [id number] Platelets (Bld) [#/Vol] 221 10*3/uL Normal 150 - 450 [facility] Comment on above: Performed By: #### C BCDF #### [address] [id number] RBC 4.13 x10E12/L Normal 4.00 - 5.20 [facility] Comment on above: Performed By: #### C BCDF #### [address] [id number] WBC (Bld) [#/Vol] 6.6 10*3/uL Normal 4.4 - 11.3 [facility] Comment on above: Performed By: #### C BCDF #### [address] [id number] COMPREHENSIVE PANELon 2020 Albumin [Mass/Vol] 3.6 g/dL Normal 3.4 - 5.0 [facility] Comment on above: Performed By: #### C MP #### [address] [id number] ALP [Catalytic activity/Vol] 77 U/L Normal 33 - 110 [facility] Comment on above: Performed By: #### C MP #### [address] [id number] ALT [Catalytic activity/Vol] 20 U/L Normal 7 - 45 [facility] Comment on above: Result Comment: Cony ents treated with Sulfasalazine may generate falsely decreased results for ALT. Performed By: #### C MP #### [address] [id number] Anion gap [Moles/Vol] 10 mmol/L Normal 10 - 20 [facility] Comment on above: Performed By: #### C MP #### [address] [id number] AST [Catalytic activity/Vol] 24 U/L Normal 9 - 39 [facility] Comment on above: Performed By: #### C MP #### [address] [id number] Bilirubin [Mass/Vol] 0.5 mg/dL Normal 0.0 - 1.2 [facility] Comment on above: Performed By: #### C MP #### [address] [id number] Calcium [Mass/Vol] 9.2 mg/dL Normal 8.6 - 10.3 [facility] Comment on above: Performed By: #### C MP #### [address] [id number] Chloride [Moles/Vol] 101 mmol/L Normal 98 - 107 [facility] Comment on above: Performed By: #### C MP #### [address] [id number] Creatinine [Mass/Vol] 0.85 mg/dL Normal 0.50 - 1.05 [facility] Comment on above: Performed By: #### C MP #### [address] [id number] GFR- AM. >60 Normal >60 [facility] Comment on above: Result Comment: CALC ULATIONS OF ESTIMATED GFR ARE PERFORMED USING THE MDRD STUDY EQUATION FOR THE IDMS-TRACEABLE CREATININE METHODS. CLIN CHEM 2007;53:766-72 Performed By: #### C MP #### [address] [id number] GFR-NON AM. >60 Normal >60 [facility] Comment on above: Performed By: #### C MP #### [address] [id number] Glucose [Mass/Vol] 75 mg/dL Normal 74 - 99 [facility] Comment on above: Performed By: #### C MP #### [address] [id number] HCO3 (Bld) [Moles/Vol] 30 mmol/L Normal 21 - 32 [facility] Comment on above: Performed By: #### C MP #### [address] [id number] Potassium [Moles/Vol] 4.1 mmol/L Normal 3.5 - 5.3 [facility] Comment on above: Performed By: #### C MP #### [address] [id number] Protein [Mass/Vol] 7.0 g/dL Normal 6.4 - 8.2 [facility] Comment on above: Performed By: #### C MP #### [address] [id number] Sodium [Moles/Vol] 137 mmol/L Normal 136 - 145 [facility] Comment on above: Performed By: #### C MP #### [address] [id number] Urea nitrogen [Mass/Vol] 21 mg/dL Normal 6 - 23 [facility] Comment on above: Performed By: #### C MP #### [address] [id number] HEPATITIS PANEL,ACUTE (HCFA) on 03-05-2021 HEPATITIS B CORE AB,IGM Non-Reactive Normal NONREACTIVE [facility] Comment on above: Result Comment: Resu lts from patients taking biotin supplements or receiving high-dose biotin therapy should be interpreted with caution due to possible interference with this test. Providers may contact their local laboratory for further information. Performed By: #### H EPA2 #### [facility] [address] [place] [address] HEPATITIS C AB Non-Reactive Normal NONREACTIVE [facility] Comment on above: Result Comment: Resu lts from patients taking biotin supplements or receiving high-dose biotin therapy should be interpreted with caution due to possible interference with this test. Providers may contact their local laboratory for further information. Performed By: #### H EPA2 #### [facility] [address] [place] [id number] HEPATITIS A AB-IGM Non-Reactive Normal NONREACTIVE [facility] Comment on above: Result Comment: Biot in interference may cause falsely decreased results. Patients taking a Biotin dose of up to 5 mg/day should refrain from taking Biotin for 24 hours before sample collection. Providers may contact their local laboratory for further information. Performed By: #### H EPA2 #### [facility] [address] [place] [id number] HEP.B SURFACE AG Non-Reactive Normal NONREACTIVE [facility] Comment on above: Result Comment: Biot in interference may cause falsely decreased results. Patients taking a Biotin dose of up to 5 mg/day should refrain from taking Biotin for 24 hours before sample collection. Providers may contact their local laboratory for further information. Performed By: #### H EPA2 #### [facility] [address] [place] [id number] HIV 1/2 ANTIGEN/ANTIBODY SCR EEN WITH REFLEX TO CONFIRMATIONon 03-05-2021 HIV 1/2 AG/AB SCREEN Non-Reactive Normal NONREACTIVE [facility] Comment on above: Result Comment: HIV Ag/Ab screen is performed using the [employer] HIV Ag/Ab Combo assay which detects the presence of HIV p24 antigen as well as antibodies to HIV-1 (Group M and O) and HIV-2. . No laboratory evidence of HIV infection. If acute HIV infection is suspected, consider testing for HIV RNA by PCR (viral load). Performed By: #### H IV #### [facility] [address] [place] [address] SYPHILIS SCREENING WITH REFL EXon 03-05-2021 Lab Specimen Source Normal [facility] Comment on above: Performed By: #### S YPHR #### [facility] [address] [place] [address] Performed By: #### H EPA2 #### [facility] [address] [place] [address] Performed By: #### H IV #### [facility] [address] [place] [address] HEPATITIS PANEL,ACUTE (HCFA) on 02-29-2020 HEPATITIS A AB-IGM NONREACTIVE Normal NONREACTIVE [facility] Comment on above: Result Comment: Biot in interference may cause falsely decreased results. Patients taking a Biotin dose of up to 5 mg/day should refrain from taking Biotin for 24 hours before sample collection. Providers may contact their local laboratory for further information. Performed By: #### H EPA2 #### [facility] [address] [place] [address] HEPATITIS C AB NONREACTIVE Normal NONREACTIVE [facility] Comment on above: Result Comment: Resu lts from patients taking biotin supplements or receiving high-dose biotin therapy should be interpreted with caution due to possible interference with this test. Providers may contact their local laboratory for further information. Performed By: #### H EPA2 #### [facility] [address] [place] [address] HEPATITIS B CORE AB,IGM NONREACTIVE Normal NONREACTIVE [facility] Comment on above: Result Comment: Resu lts from patients taking biotin supplements or receiving high-dose biotin therapy should be interpreted with caution due to possible interference with this test. Providers may contact their local laboratory for further information. Performed By: #### H EPA2 #### [facility] [address] [place] [id number] HEP.B SURFACE AG NONREACTIVE Normal NONREACTIVE [facility] Comment on above: Result Comment: Biot in interference may cause falsely decreased results. Patients taking a Biotin dose of up to 5 mg/day should refrain from taking Biotin for 24 hours before sample collection. Providers may contact their local laboratory for further information. Performed By: #### H EPA2 #### [facility] [address] [place] [id number] HIV ANTIGEN/ANTIBODY SCREENo n 02-29-2020 HIV AG/AB SCREEN NONREACTIVE Normal NONREACTIVE [facility] Comment on above: Result Comment: HIV Ag/Ab screen is performed using the [employer] HIV Ag/Ab Combo assay which detects the presence of HIV p24 antigen as well as antibodies to HIV-1 (Group M and O) and HIV-2. Performed By: #### H IV #### [facility] [facility] [address] [place] [address] SYPHILIS SCREENING WITH REFL EXon 02-29-2020 SYPHILIS TOTAL AB NONREACTIVE Normal NONREACTIVE [facility] Comment on above: Result Comment: No s ignificant level of Treponema pallidum antibody detected. Repeat testing in 2 to 4 weeks may be considered if early infection or incubating syphilis infection is suspected. Performed By: #### S YPHR #### [facility] [address] [place] [address] BILIRUBIN,DIRECTon 0 Bilirubin.direct [Mass/Vol] 0.1 mg/dL Normal 0.0 - 0.3 [facility] Comment on above: Performed By: #### D BILI #### [address] [id number] CBCon 02-28-2020 Erythrocyte distribution width (RBC) [Ratio] 12.6 % Normal 11.5 - 14.5 [facility] Comment on above: Performed By: #### C BC #### [address] [id number] Hematocrit (Bld) [Volume fraction] 38.4 % Normal 36.0 - 46.0 [facility] Comment on above: Performed By: #### C BC #### [address] [id number] Hemoglobin (Bld) [Mass/Vol] 12.5 g/dL Normal 12.0 - 16.0 [facility] Comment on above: Performed By: #### C BC #### [address] [id number] MCHC (RBC) [Mass/Vol] 32.6 g/dL Normal 32.0 - 36.0 [facility] Comment on above: Performed By: #### C BC #### [address] [id number] MCV (RBC) [Entitic vol] 88 fL Normal 80 - 100 [facility] Comment on above: Performed By: #### C BC #### [address] [id number] Platelets (Bld) [#/Vol] 350 10*3/uL Normal 150 - 450 [facility] Comment on above: Performed By: #### C BC #### [address] [id number] RBC (Bld) [#/Vol] 4.34 x10E12/L Normal 4.00 - 5.20 [facility] Comment on above: Performed By: #### C BC #### [address] [id number] WBC (Bld) [#/Vol] 5.6 10*3/uL Normal 4.4 - 11.3 [facility] Comment on above: Performed By: #### C BC #### [address] [id number] COMPREHENSIVE PANELon 2019 Albumin [Mass/Vol] 4.1 g/dL Normal 3.4 - 5.0 [facility] Comment on above: Performed By: #### C MP #### [address] [id number] ALP [Catalytic activity/Vol] 105 U/L Normal 33 - 110 [facility] Comment on above: Performed By: #### C MP #### [address] [id number] ALT [Catalytic activity/Vol] 24 U/L Normal 7 - 45 [facility] Comment on above: Result Comment: Cony ents treated with Sulfasalazine may generate falsely decreased results for ALT. Performed By: #### C MP #### [address] [id number] Anion gap [Moles/Vol] 10 mmol/L Normal 10 - 20 [facility] Comment on above: Performed By: #### C MP #### [address] [id number] AST [Catalytic activity/Vol] 22 U/L Normal 9 - 39 [facility] Comment on above: Performed By: #### C MP #### [address] [id number] Bilirubin [Mass/Vol] 0.4 mg/dL Normal 0.0 - 1.2 [facility] Comment on above: Performed By: #### C MP #### [address] [id number] Calcium [Mass/Vol] 9.1 mg/dL Normal 8.6 - 10.3 [facility] Comment on above: Performed By: #### C MP #### [address] [id number] Chloride [Moles/Vol] 101 mmol/L Normal 98 - 107 [facility] Comment on above: Performed By: #### C MP #### [address] [id number] Creatinine [Mass/Vol] 0.79 mg/dL Normal 0.50 - 1.05 [facility] Comment on above: Performed By: #### C MP #### [address] [id number] GFR- AM. >60 Normal >60 [facility] Comment on above: Result Comment: CALC ULATIONS OF ESTIMATED GFR ARE PERFORMED USING THE MDRD STUDY EQUATION FOR THE IDMS-TRACEABLE CREATININE METHODS. CLIN CHEM 2007;53:766-72 Performed By: #### C MP #### [address] [id number] GFR-NON AM. >60 Normal >60 [facility] Comment on above: Performed By: #### C MP #### [address] [id number] Glucose [Mass/Vol] 90 mg/dL Normal 74 - 99 [facility] Comment on above: Performed By: #### C MP #### [address] [id number] HCO3 (Bld) [Moles/Vol] 28 mmol/L Normal 21 - 32 [facility] Comment on above: Performed By: #### C MP #### [address] [id number] Potassium [Moles/Vol] 4.4 mmol/L Normal 3.5 - 5.3 [facility] Comment on above: Performed By: #### C MP #### [address] [id number] Protein [Mass/Vol] 8.1 g/dL Normal 6.4 - 8.2 [facility] Comment on above: Performed By: #### C MP #### [address] [id number] Sodium [Moles/Vol] 135 mmol/L Low 136 - [address] [facility] Comment on above: Performed By: #### C MP #### [address] [id number] Urea nitrogen [Mass/Vol] 21 mg/dL Normal 6 - 23 [facility] Comment on above: Performed By: #### C MP #### [address] [id number] SYPHILIS SCREENING WITH REFL EXon 02-28-2020 Lab Specimen Source Normal [facility] Comment on above: Performed By: #### S YPHR #### [facility] [address] [place] [address] Performed By: #### H IV #### [facility] [address] [place] [address] Performed By: #### H EPA2 #### [facility] [address] [place] [address] APTTon 08-13-2017 aPTT 27.9 s Normal 23.2-34.4 [facility] Comment on above: Result Comment: Perf ormed at [place] [address] [place] [address] Performed By: #### C DP, PT, PTT, BNP, BMP, TROPI ####[address] , [place] [phone] Metabolic Profon 08-13 (cont.) Normal [facility] Comment on above: Result Comment: Aver age GFR for 30-39 years old: 107 mL/min/1.73sq mChronic Kidney Disease: <60 mL/min/1.73sq mKidney failure: <15 mL/min/1.73sq meGFR calculated using average adult body mass. Additional eGFR calculator available at:http://www.Erydel/multiple_crcl_2011.htm Performed By: #### C DP, PT, PTT, BNP, BMP, TROPI ####[address] [place] [address] Anion gap 11 mmol/L Normal 9-17 [facility] Comment on above: Performed By: #### C DP, PT, PTT, BNP, BMP, TROPI ####[address] [place] [address] BUN/CRE Ratio 21 High 9-20 [facility] Comment on above: Performed By: #### C DP, PT, PTT, BNP, BMP, TROPI ####[address] [place] [address] Calcium 9.6 mg/dL Normal 8.6-10.4 [facility] Comment on above: Performed By: #### C DP, PT, PTT, BNP, BMP, TROPI ####[address] [place] [address] Chloride 96 mmol/L Low 98-107 [facility] Comment on above: Performed By: #### C DP, PT, PTT, BNP, BMP, TROPI ####[address] [place] [address] CO2 31 mmol/L Normal 20-31 [facility] Comment on above: Performed By: #### C DP, PT, PTT, BNP, BMP, TROPI ####[address] [place] [address] Creatinine 0.73 mg/dL Normal 0.50-0.90 [facility] Comment on above: Performed By: #### C DP, PT, PTT, BNP, BMP, TROPI ####[address] [place] [address] eGFR (non-black) mL/min/{1.73_m2} Normal >60 [facility] Comment on above: Performed By: #### C DP, PT, PTT, BNP, BMP, TROPI ####[address] [place] [address] Glucose mass conc 101 mg/dL High 70-99 [facility] Comment on above: Performed By: #### C DP, PT, PTT, BNP, BMP, TROPI ####[address] [place] [address] Potassium molar conc 3.2 mmol/L Low 3.7-5.3 [facility] Comment on above: Performed By: #### C DP, PT, PTT, BNP, BMP, TROPI ####[address] [place] [address] Sodium 138 mmol/L Normal 135-144 [facility] Comment on above: Performed By: #### C DP, PT, PTT, BNP, BMP, TROPI ####[address] [place] [address] Staging: Normal [facility] Comment on above: Result Comment: Stag e 1: Some kidney damage normal GFRStage 2: Mild kidney damage GFR 60-89Stage 3: Moderate kidney damage GFR 30-59Stage 4: Severe kidney damage GFR 15-29Stage 5: Severe kidney damage GFR <15ESRD - chronic treatment by dialysis or transplantPerformed at [address] [place] [address] Performed By: #### C DP, PT, PTT, BNP, BMP, TROPI ####[address] [place] [address] Urea nitrogen 15 mg/dL Normal 6-20 [facility] Comment on above: Performed By: #### C DP, PT, PTT, BNP, BMP, TROPI ####[address] [place] [address] Brain Natri. Peptideon 08-13 BNP pg/mL Normal <300 [facility] Comment on above: Result Comment: Pro- BNP results cannot be compared to BNP results. Performed By: #### C DP, PT, PTT, BNP, BMP, TROPI ####[address] [place] [address] BNP Normal [facility] Comment on above: Result Comment: Pro- BNP Reference Range:Rule Out: <300Grey Zone: Age <50 300-450 Age 50-75 300-900 Age >75 300-1800Usually represents mild to moderate HF but other cardiopulmonary causes cannot be ruled out.Rule In: Age <50 >450 Age 50-75 >900 Age >75 >1800Performed at [address] [place] [address] Performed By: #### C DP, PT, PTT, BNP, BMP, TROPI ####[address] [place] [address] CBC with Diffon 08-13-2017 Abs. Basophil 0.00 k/uL Normal 0.0-0.2 [facility] Comment on above: Result Comment: Perf ormed at [address] [place] [address] Performed By: #### C DP, PT, PTT, BNP, BMP, TROPI ####[address] [place] [address] Abs.Neutrophil (Seg) 4.50 k/uL Normal 1.8-7.7 [facility] Comment on above: Performed By: #### C DP, PT, PTT, BNP, BMP, TROPI ####[address] , [place] [address] Basophils/100 WBC Auto (Bld) 0 % Normal 0-2 [facility] Comment on above: Performed By: #### C DP, PT, PTT, BNP, BMP, TROPI ####[address] , [place] [address] Eosinophils 0.20 10*3/uL Normal 0.0-0.4 [facility] Comment on above: Performed By: #### C DP, PT, PTT, BNP, BMP, TROPI ####[address] , [place] [address] Eosinophils/100 leukocytes 2 % Normal 0-8 [facility] Comment on above: Performed By: #### C DP, PT, PTT, BNP, BMP, TROPI ####[address] , [facility] Erythrocyte distribution width Auto Ratio (RBC) 15.0 % Normal 12.1-15.2 [facility] Comment on above: Performed By: #### C DP, PT, PTT, BNP, BMP, TROPI ####[address] [place] [address] Erythrocytes (RBC) 4.75 10*6/uL Normal 4.0-5.2 [facility] Comment on above: Performed By: #### C DP, PT, PTT, BNP, BMP, TROPI ####[address] , [facility] Hematocrit (HCT) 41.0 % Normal 36-46 [facility] Comment on above: Performed By: #### C DP, PT, PTT, BNP, BMP, TROPI ####[address] , [facility] Hemoglobin mass conc (Bld) 13.7 g/dL Normal 12.0-16.0 [facility] Comment on above: Performed By: #### C DP, PT, PTT, BNP, BMP, TROPI ####[address] [place] [address] Lymphocytes 2.60 10*3/uL Normal 1.0-4.8 [facility] Comment on above: Performed By: #### C DP, PT, PTT, BNP, BMP, TROPI ####[address] , [place] [address] Lymphocytes/100 leukocytes 34 % Normal 24-44 [facility] Comment on above: Performed By: #### C DP, PT, PTT, BNP, BMP, TROPI ####[address] , [place] [address] MCH 28.8 pg Normal 26-34 [facility] Comment on above: Performed By: #### C DP, PT, PTT, BNP, BMP, TROPI ####[address] , [place] [address] MCHC mass conc (RBC) 33.4 g/dL Normal 31-37 [facility] Comment on above: Performed By: #### C DP, PT, PTT, BNP, BMP, TROPI ####[address] , [place] [address] MCV 86.3 fL Normal 80-100 [facility] Comment on above: Performed By: #### C DP, PT, PTT, BNP, BMP, TROPI ####[address] , [place] [address] Monocytes 0.40 10*3/uL Normal 0.0-1.0 [facility] Comment on above: Performed By: #### C DP, PT, PTT, BNP, BMP, TROPI ####[address] [place] [address] Monocytes/100 leukocytes 6 % Normal 0-12 [facility] Comment on above: Performed By: #### C DP, PT, PTT, BNP, BMP, TROPI ####[address] [place] [address] Neutrophil (Seg) 58 % Normal 36-66 [facility] Comment on above: Performed By: #### C DP, PT, PTT, BNP, BMP, TROPI ####[address] [place] [address] Platelet mean volume (PMV) 6.7 fL Normal 6.0-12.0 [facility] Comment on above: Performed By: #### C DP, PT, PTT, BNP, BMP, TROPI ####[address] [place] [address] Platelets 322 10*3/uL Normal 140-450 [facility] Comment on above: Performed By: #### C DP, PT, PTT, BNP, BMP, TROPI ####[address] [place] [address] WBC (Leukocytes) 7.7 10*3/uL Normal 3.5-11.0 [facility] Comment on above: Performed By: #### C DP, PT, PTT, BNP, BMP, TROPI ####[address] [place] [address] Auto Diff Performed NOT REPORTED Normal [facility] Comment on above: Performed By: #### C DP, PT, PTT, BNP, BMP, TROPI ####[address] [place] [address] Erythrocyte morphology NOT REPORTED Normal [facility] Comment on above: Performed By: #### C DP, PT, PTT, BNP, BMP, TROPI ####[address] [place] [address] Erythrocytes (RBC) NOT REPORTED Normal [facility] Comment on above: Performed By: #### C DP, PT, PTT, BNP, BMP, TROPI ####[address] [place] [address] Granulocytes/100 WBC (Bld) NOT REPORTED Normal 0.00-0.30 [facility] Comment on above: Performed By: #### C DP, PT, PTT, BNP, BMP, TROPI ####[address] [place] [address] Immature granulocytes #/vol (Bld) NOT REPORTED Normal 0 [facility] Comment on above: Performed By: #### C DP, PT, PTT, BNP, BMP, TROPI ####[address] [place] [address] Platelets NOT REPORTED Normal [facility] Comment on above: Performed By: #### C DP, PT, PTT, BNP, BMP, TROPI ####[address] [place] [address] WBC Morphology NOT REPORTED Normal [facility] Comment on above: Performed By: #### C DP, PT, PTT, BNP, BMP, TROPI ####[address] [place] [address] ED Provider Noteon 8 HIM IP Note OR Forensic Psychologist Normal [facility] PTon 08-13-2017 INR Coag RelTime (PPP) 0.9 {INR} Normal 0.9-1.2 [facility] Comment on above: Result Comment: Perf ormed at [address] [place] [address] Performed By: #### C DP, PT, PTT, BNP, BMP, TROPI ####[address] [place] [address] Prothrombin time (PT) Coag time (PPP) 9.7 s Normal 9.7-12.2 [facility] Comment on above: Performed By: #### C DP, PT, PTT, BNP, BMP, TROPI ####[address] [place] [address] Troponinon 08-13-2017 Troponin I.cardiac mass conc Normal [facility] Comment on above: Result Comment: Refe rence Range: <0.03 Within reference range. 0.03-0.09 Possible myocardial damage.Repeat at appropriate intervals to rule out chronic elevation. >= 0.10 Indicative of myocardial damage.Patients with high levels of Biotin oral intake (i.e >5mg/day) may have falsely decreased Troponin T levels. Samples collected within 8 hours of biotin intake may require additional information for diagnosis.Performed at [address] [place] [id number] [phone]. Performed By: #### C DP, PT, PTT, BNP, BMP, TROPI ####[address] [place] [address] Troponin T.cardiac mass conc ug/L Normal <0.03 [facility] Comment on above: Result Comment: Trop onin T results cannot be compared to Troponin-I results. Performed By: #### C DP, PT, PTT, BNP, BMP, TROPI ####[address] [place] [address] XR CHEST PORTABLEon 08-13-19 18 XR CHEST [...] by:RACHEL Haskinsigned by:Sruthi Mo MD08/13/17inal result Normal [facility] Vital Signs Date Time Vital Sign Value Performing Clinician Facility 02-03-2022 10:50-0400 Body height 154.9 cm Chas Romero DO Work Phone: [facility] 02-03-2022 10:50-0400 Body weight 122.7 kg Chas Romero DO Work Phone: [facility] 02-03-2022 10:50-0400 Diastolic blood pressure 84 mm[Hg] Chas Romero DO Work Phone: [facility] 02-03-2022 10:50-0400 Heart rate 66 /min Chas Romero DO Work Phone: [facility] 02-03-2022 10:50-0400 SaO2% (BldA) [Mass fraction] 98 % Chas Romero DO Work Phone: [facility] 02-03-2022 10:50-0400 Systolic blood pressure 117 mm[Hg] Chas Romero DO Work Phone: [facility] 01-01-2022 11:45-0400 Body height 155.57 cm Rolando Miracle Other [facility] Other 01-01-2022 11:45-0400 Body mass index (BMI) [Ratio] 42.12 kg/m2 Rolando Miracle Other [facility] Other 01-01-2022 11:45-0400 Body weight 101.97 kg Rolando Miracle Other [facility] Other 11-13-2021 10:45-0400 Body height 155.57 cm Rolando Miracle Other [facility] Other 11-13-2021 10:45-0400 Body mass index (BMI) [Ratio] 42.12 kg/m2 Rolando Miracle Other [facility] Other 11-13-2021 10:45-0400 Body weight 101.97 kg Rolando Miracle Other [facility] Other 05-17-2022 13:49-0400 Body height 154.9 cm Chas Romero DO Work Phone: [facility] 11-12-2021 13:49-0400 Body weight 118.62 kg Chas Romero DO Work Phone: [facility] 11-12-2021 13:49-0400 Diastolic blood pressure 82 mm[Hg] Chas Romero DO Work Phone: [facility] 11-12-2021 13:49-0400 Heart rate 69 /min Chas Romero DO Work Phone: [facility] 11-12-2021 13:49-0400 SaO2% (BldA) [Mass fraction] 100 % Chas Romero DO Work Phone: [facility] 11-12-2021 13:49-0400 Systolic blood pressure 120 mm[Hg] Chas Romero DO Work Phone: [facility] 09-18-2021 11:15-0400 Body height 155.57 cm Rolando Miracle Other [facility] Other 09-18-2021 11:15-0400 Body mass index (BMI) [Ratio] 42.12 kg/m2 Rolando Miracle Other [facility] Other 09-18-2021 11:15-0400 Body weight 101.97 kg Rolando Turner Other [facility] Other 07-24-2021 11:15-0500 Body height 155.57 cm Rolando Miracle Other [facility] Other 07-24-2021 11:15-0500 Body mass index (BMI) [Ratio] 47.03 kg/m2 Rolando Miracle Other [facility] Other 07-24-2021 11:15-0500 Body weight 113.85 kg Rolando Miracle Other [facility] Other 06-12-2021 11:00-0500 Body height 155.57 cm Rolando Miracle Other [facility] Other 06-12-2021 11:00-0500 Body mass index (BMI) [Ratio] 46.85 kg/m2 Rolando Miracle Other [facility] Other 06-12-2021 11:00-0500 Body weight 113.4 kg Rolando Miracle Other [facility] Other 05-15-2021 14:00-0500 Body height 155.57 cm Rolando Miracle Other [facility] Other 05-15-2021 14:00-0500 Body mass index (BMI) [Ratio] 42.12 kg/m2 Rolando Miracle Other [facility] Other 05-15-2021 14:00-0500 Body weight 101.97 kg Rolando Miracle Other [facility] Other 04-17-2021 10:30-0400 Body height 155.57 cm Roladno Miracle Other [facility] Other 04-17-2021 10:30-0400 Body mass index (BMI) [Ratio] 42.12 kg/m2 Rolando Miracle Other [facility] Other 04-17-2021 10:30-0400 Body weight 101.97 kg Rolando Miracle Other [facility] Other Encounters Encounter Date Encounter Type Care Provider Facility Start: 07-13-2023 End: 07-14-2023 ambulatory Fabián Archer MD Facility: [facility] Start: 06-18-2023 ambulatory Luiz Garsia acility:[facility] Start: 06-15-2023 End: 06-16-2023 ambulatory Fabián Archer MD Facility: [facility] Start: 04-27-2023 End: 04-28-2023 ambulatory Fabián Archer MD Facility:[facility] Start: 03-04-2023 ambulatory PASCUAL [facility] Start: 02-23-2023 ambulatory [facility] Start: 01-12-2023 ambulatory [facility] Start: 01-01-2023 End: 01-01-2023 ambulatory [facility] Start: 12-01-2022 ambulatory PASCUAL [facility] Start: 09-29-2022 ambulatory PASCUAL [facility] Start: 09-15-2022 ambulatory [facility] Start: 09-15-2022 Encounter for other preprocedural examination [facility] Start: 08-22-2022 End: 08-23-[address] SMILEY URIAS . Facility: Start: 08-21-2022 ambulatory CAROLE PONCE [facility] Start: 08-06-2022 [facility] Start: 07-02-[facility]22 ambulatory PASCUAL [facility] Start: 05-15-2022 End: 05-15-2022 ambulatory [facility] Start: 05-12-2022 End: 05-13-2022 ambulatory [facility] Start: 05-05-2022 End: 05-06-2022 ambulatory [facility] Start: 04-30-2022 ambulatory PASCUAL URIBE [facility] Start: 04-18-2022 End: 04-19-[address] SMILEY URIAS . Facility: Start: 04-17-2022 ambulatory [facility] Start: 04-03-2022 End: 04-03-2022 ambulatory RUFINO PERDOMO [facility] Start: 04-01-2022 End: 04-01-2022 ambulatory [facility] Start: 03-06-2022 ambulatory SMILEY URIAS Facility:[facility] Start: 02-03-2022 End: 02-03-2022 ambulatory SMILEY URIAS Facility:[facility] Start: 02-03-2022 End: 02-03-2022 Patient encounter procedure Chas Heather DO Work Phone: Neurology Comment on above: Right leg weakness ( Primary Dx) Start: 01-31-2022 End: 02-22-[address] SMILEY URIAS . Facility:[facility] Start: 01-30-2022 Telephone encounter Chas laws DO Work Phone: Neurology Comment on above: Results Start: 01-27-2022 End: 01-28-[address] SMILEY URIAS . Facility: Start: 01-23-2022 End: 01-23-2022 ambulatory SMILEY URIAS Facility:[facility] Start: 01-23-2022 End: 01-23-2022 ambulatory Emg 400) Work Phone: Neurology Comment on above: EMG Start: 01-23-2022 End: 01-23-2022 Patient encounter procedure Emg 2 Neur Rej (Max Weight: 400) Work Phone: [facility] Start: 01-22-2022 End: 01-23-[address] SMILEY URIAS . Facility: Start: 01-13-2022 End: 01-14-2022 ambulatory NUZHAT ARZOLA Facility:[facility] Start: 01-01-2022 End: 01-01-2022 ambulatory Rolando Turner Other [facility] Other Start: 01-01-2022 Office outpatient vi sit 15 minutes [facility] Start: 12-06-2021 Telephone encounter Chas Za le DO Work Phone: Neurology Comment on above: Insurance Authorizat ion Start: 11-13-2021 End: 11-13-2021 ambulatory Rolando Turner Other [facility] Other Start: 11-13-2021 Office outpatient vi sit 15 minutes Rolando Turner [facility] Start: 11-12-2021 End: 11-12-2021 ambulatory CHAS ROMERO Facility:[facility] Start: 11-12-2021 End: 11-12-2021 Patient encounter procedure Chas Romero DO Work Phone: Neurology Comment on above: Right leg weakness ( Primary Dx) Start: 10-22-2021 Telephone encounter Chas laws DO Work Phone: Neurology Comment on above: Received Outside [facility] Start: 10-02-2021 End: 10-16-[address] SMILEY URIAS . Facility: Start: 09-30-2021 End: 09-30-2021 ambulatory Rolando Turner Other [facility] Other Start: 09-30-2021 Telephone encounter Rolando Turner [facility] Start: 09-24-2021 End: 09-26-2021 ambulatory UNKNOWN PROVIDER Facility:[facility] Start: 09-18-2021 End: 09-18-2021 ambulatory Rolando Turner Other [facility] Other Start: 09-18-2021 Office outpatient vi sit 15 minutes Rolando Turner [facility] Start: 09-06-2021 End: 09-07-2021 ambulatory [facility] Facility: Start: 07-24-2021 End: 07-24-2021 ambulatory Rolando Turner Other [facility] Other Start: 07-24-2021 Office outpatient vi sit 15 minutes Rolando Turner [facility] Start: 06-12-2021 End: 06-12-2021 ambulatory Rolando Nicholasley Other [facility] Other Start: 06-12-2021 Office outpatient vi sit 15 minutes Rolando Miracle [facility] Start: 05-15-2021 End: 05-15-2021 ambulatory Rolando Miracle Other [employer] Other Start: 05-15-2021 Office outpatient vi sit 15 minutes Rolando Miracle [facility] Start: 04-17-2021 Office outpatient ne w 45 minutes Rolando Turner [facility] Start: 08-13-2017 End: 08-13-2017 Emergency department patient visit EDSON VILLEGAS [facility] Procedures Date Procedure Procedure Detail Performing [...] EDSON ZAMAN Start: 08-13-2017 INSERT PERIPHERAL IV NE CODY VILLEGAS Start: 08-13-2017 TELEMETRY MONITORING NE CODY VILLEGAS Start: 08-13-2017 VITAL SIGNS EDSON ZAMAN Plan of Treatment Date Care Activity Detail Author Start: 02-27-2022 Influenza vaccination C [facility] Start: 09-01-2015 HPV TESTING HPV TESTING [facility] Start: 2006 PAP TESTING PAP TESTING [facility] Start: 2004 Urine microalbumin profile DTAP,TDAP,TD (1 - Tdap) [facility] Start: 09-01-2003 ANNUAL PCP TEAM MUCK MINER CAIN DISEASE VISIT ANNUAL PCP TEAM CHRONIC DISEASE VISIT [facility] Start: 09-01-2003 BP CONTROLLED (<130/80) BP CON TROLLED (<130/80) [facility] Start: 09-01-2003 HEPATITIS C SCREENING HEPATITIS C SC ALAINANING [facility] Start: 09-01-2003 HIV SCREENING HIV SCREENING [facility] Start: 1997 Adult depression screening assessment DEPRESSION SCREENING [facility] Start: 1990 COVID-19 VACCINE (#1) COVID-19 VACCI NE (#1) [facility] Start: 1990 COVID-19 VACCINE (1) COVID-19 VACCIN E (1) [facility] Start: 03-03-1986 COVID-19 VACCINE (#1) COVID-19 VACCI NE (#1) [facility] Start: 1985 HEPATITIS B (1 of 3 - 3-dose series) HEPATITIS B (1 of 3 - 3-dose series) [facility] End: 11-12-2022 EMG(NEURO/NI) EMG(NEURO/NI) EMG Routine Right leg weakness 1 Occurrences starting 11/12/2021 until 11/12/2022 [facility] Work Phone: Comment on above: 1 Occurrences starti ng 11/12/2021 until 11/12/2022 [facility] Payers Date Payer Category Payer Self-pay 2022 Medicaid [id number] 2021 Unknown [facility] [id number] 2021-Present [phone] [place] [address] [facility] [id number] 2021 Unknown [id number] 2021 Unknown [id number] 2021 Worker's Compensation [id number] 2021 Worker's Compensation 2020 Medicaid [employer] 2020-Present [phone] [address] [place] [address] Medicaid 2020 Medicaid [employer]ICA[employer] [id number] 2020-Present [phone] [address] [place] [address] Medicaid [id number] 2014 Unknown [id number] 1985 Unknown [id number] [id number] 32 1985 Unknown [id number] 2.16.840.1.521695.3.579.2.6 47 1985 Unknown [id number] 2.16.840.1.173111.3.579.2.5 93 1985 Unknown [id number] 2.16.840.1.872548.3.579.2.5 93 1985 Unknown [id number] 2.16.840.1.570592.3.579.2.5 93 1985 Unknown [id number] 2.16.840.1.129638.3.579.2.5 93 1985 Unknown [id number] 2.16.840.1.126058.3.579.2.5 93 1985 Unknown [id number] 2.16.840.1.208609.3.579.2.5 93 1985 Unknown [id number] 2.16.840.1.480423.3.579.2.5 93 1985 Unknown [id number] 2.16.840.1.013852.3.579.2.5 93 1985 Unknown [id number] 2.16.840.1.374246.3.579.2.1 96 1985 Unknown [id number] 2.16.840.1.650825.3.579.2.1 96 1985 Unknown [id number] 2.16.840.1.057720.3.579.2.1 1959 Medicaid [id number] 1959 Unknown [id number] 2.16.840.1.709079.19 Unknown [id number] 2.16.840.1.827119.3.579.2.5 31 Social History Date Type Detail Facility Start: 09-29-2014 Tobacco smoking stat us ALIS Smokes tobacco daily [facility] End: 08-15-2019 History of tobacco use Cigarette Smoker [facility] Start: 09-29-2014 End: 02-03-2022 Cigarettes smoked current (pack per day) - Reported 0.5 [facility] Start: 09-29-2014 End: 02-03-2022 Tobacco use and exposure Smokeless tobacco non-user [facility] Start: 03-02-2015 End: 02-03-2022 Alcohol intake Current non-drinker of alcohol (finding) [facility] Start: 1985 Sex Assigned At Not on file C [facility] Start: 11-12-2021 End: 02-03-2022 Tobacco smoking status NHIS Ex-smoker [facility] End: 08-15-2019 History of tobacco use Current smoker [facility] Start: 11-02-2021 End: 02-03-2022 Exposure to SARS-CoV-2 (event) Not sure [facility] Sex Assigned At Sex Assigned At [facility] [employer] Other Clinical Notes 04-03-2021 to 03-04-2023 Chas Romero DO - 02/03/2022 11:00 AM EDTTelephone Encounter - Chas Romero DO - 01/30/2022 10:43 AM Nando Hernandez MD - 01/23/2022 1:10 PM EDT [...] 1 month she will likely be at [facility] and then will be released for work either with permanent restrictions or unrestricted depending upon how she feels. She has exhausted conservative care at this point. This patient was seen and examined in the presence of Dr. Cesar Escalante resident in physical medicine and rehabilitation. [facility] 02-23-2023 Note Attestation signed by Jenny [...] improve Chinedu Palacios MD Orthopedic Surgery, PGY-4 [facility] Pager: [phone] 02/23/23 2:00 PM This note was created [...] be an additional personal documentation from me. [facility] 01-12-2023 Note Attestation signed by Jenny [...] be an additional personal documentation from me. [facility] 01-02-2023 Note I called and spoke t o the patient for a discharge follow up call following her procedure. The patient is doing well at home. She is taking ASA per orders. She denies any issues with her surgical dressing. I confirmed with the patient that she has a follow up appointment with Dr. Holley. [facility] 01-01-2023 Note Patient: Nabila cohn Procedure Summary Date: 01/01/23 Room / Location: [facility] OR [address] [place] [address] OR Anesthesia Start: 0900 Anesthesia Stop: 0954 Procedures: KNEE ARTHROSCOPY WITH PARTILA LATERAL MENISCECTOMY [...] no known notable events for this encounter. [facility] 01-01-2023 Note Airway Date/Time: 01/01/2023 9:16 AM Urgency: elective Airway not difficult General Information and Staff Patient location during procedure: OR Anesthesiologist: Han Aguiar MD Resident/MARKETING AND DEVELOPMENT COORDINATOR/TANO: TANO Bonner Performed: other anesthesia staff Learner assisted: Darline medical student Indications and Patient Condition Indications for [...] 1 Number of other approaches attempted: 0 [facility] 01-01-2023 Note Patient: Nabila cohn Procedure Information Date/Time: 01/01/23929 Procedures: KNEE ARTHROSCOPY WITH (Left: Knee) SAUCERIZATION OF DISCOID MENISCUS AND CHONDROPLASTY OF TROCHLEA (Left: Knee) Location: [address] OR Surgeons: Jenny Holley MD Echo complete W/O contrast Order: [id number] Narrative ?Left Ventricle: Systolic function is normal [...] 09:51 Last Resulted: 07/12/19 12:35 Received From: [facility] Result Received: 03/31/22 20:06 View Encounter ??? 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 Additional Equipment Requests [facility] 12-09-2022 Note Called to confirm ap pointment with dietitian scheduled for 12/10; pt request to cancel appointment at this time. [facility] 12-01-2022 Note Attestation signed by Pascual [...] a 37 y.o. female who presents to [facility] today for [facility] post-concussion syndrome follow up HPI: Patient [...] by mouth in (more content not included)... [facility] 09-29-2022 Note Attestation signed by Pascual [...] Medication refill was given Erika Damon, MS3 [facility] 09-15-2022 Note Orthopedic Surgery Subjective Chief complaint: Chief Complaint Patient presents with Left Knee - Pain 09/15/22 Nabila Jewell is a 37 year old female who presents for follow up evaluation of her left knee. The pain is unchanged and she would like to undergo surgery. 08/22/2022: Conservative measures have not provided senior care relief, seen today with complaints of left knee pain. 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 07/02/22 steroid injection at previous visit [...] is a small joint effusion noted. Assessment/Plan Naibla Jewell is a 37 y.o. 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 -Patient reports conservative measures are not providing senior care relief for left knee pain. 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 PT, medications and CSI have not provided senior care relief. 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 Refer to Dr Holley for opinion. [facility] 08-06-2022 Note Adult Nutrition Asse ssment [...] Needs: Needs based on: IBW Calorie Needs: 3008-6049 kcal/day (25-30 kcal/kg) Protein Needs: 65 g/day [...] to 2000 mg/day -Wt loss 1-2 lb/wk [facility] Goals: -Wt loss 10% Pt scheduled follow-up appointment with RD for December 10 @ 11 am. Encouraged pt to check with insurance for coverage prior to appointment. Time Spent With Pt: 10:00 - 11:30 am [facility] 07-31-2022 Note Called pt to confirm appointment with RD on 08/06/22. She is interested in attending appointment - fax sent to primary care physician (Dr. Urias) and requested for referral with nutrition related diagnosis. [facility] 07-02-2022 Note Subjective Patient ID: Nabila Jewell is a 36 y.o. female. Headache Leg Pain this patient is a 36-year-old female who sustained a work-related head injury. She continues with postconcussive syndrome. At her last visit we did start her on nabumetone been helping her headaches. They lessen the intensity. She continues with physical therapy here at [facility]. She has not yet been returning [...] Additional Comments: Seen on medical student today [facility] 05-15-2022 Note Attestation signed by Rufino [...] patient's left knee was brought in from [facility] on a CD disc that was personally [...] evaluation Sixto Durham MD PGY-4 Orthopedic Surgery [facility] By using the attestations below, the signing [...] be an additional personal documentation from me. [facility] 04-30-2022 Note ASSESSMENT/PLAN: Nabila was seen [...] a 36 y.o. female who presents to [facility] today for Workers Compensation Follow [...] strength 5/5, R (more content not included)... [facility] 04-30-2022 Note I saw and evaluated the patient, participating in the mc portions of the service. I reviewed the resident???s note. I agree with the resident???s findings and plan. Pascual Uribe MD [facility] 04-17-2022 Note Attestation signed by Marisa Carter PhD at 04/17/2022 7:11 PM I supervised all aspects of this evaluation. [facility] OUTPATIENT REHABILITATION SERVICES - NEUROPSYCHOLOGY [facility] [place] [address] Ms. Nabila Jewell was seen via [employer] and then Telephone to discuss the neuropsychological evaluation. We discussed the results, their implications, applicable diagnoses, and recommendations. All questions were answered. At this time, she is discharged from the Neuropsychology service. A copy of these results will be available to her via [facility] [employer] or through contacting the Dept. of Health Information Management ([facility]) at [phone]. Contact the Neuropsychology Clinic at [phone] with questions. Linda Topete, PhD Clinical Psychology Neuropsychology [facility] 04-17-2022 Note Attestation signed by Marisa Carter PhD at 04/22/2022 1:40 PM I supervised all aspects of this service. REVIEWED BY: Marisa Carter, PhD, ABPP Board Certified Clinical Neuropsychologist 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 She recalls multiple details of events prior to arriving at work and for the first few hours of her shift. She reports that her next memory is of lying on the floor near the door to the kitchen feeling leg and head pain. She reports that she was working alone in the kitchen at the time of the fall, but that a glue bone drier came in to assist her and a tar distillation supervisor was also called, who in turn called EMS. Ms. Jewell reports she was transported to [facility] in [place], [place], and adds a few memories of [...] seen as a new patient for a [place] Worker's Compensation claim related to concussion [...] also includes a 02/03/22 visit note from [facility] Neurology with Chas Romero DO (Neuromuscular Specialist), [...] 2020 injury. Review of medical records from [facility] on 11/12/21 indicate additional history of adrenal [...] saw Dr. Carole Caba at [facility]. She reports she currently follows with Wendy Rubio CNP at [facility]. She reports no history of psychological or neuropsychological evaluation, and no history of psychiatric hospitalization. SUBSTANCE USE: Ms. Jewell reports no current use of alcohol and no history of significant alcohol use. She reports no illicit drug use (more content not included)... [facility] 04-03-2022 Note Attestation signed by Rufino [...] patient's left knee was brought in from [facility] on a CD disc that was personally [...] 04/03/22 10:18 AM (more content not included)... [facility] 04-01-2022 Note [id number] Rebecca Jewell 1985 F Date Provider Department Center 04/01/2022 513-MARISA CARTER MP REHAB PSY Medical [facility] No family history on file Reason for Visit and Comments: Concussion [[id number]] [facility] 04-01-2022 Note Attestation signed by Marisa Carter, PhD at 04/01/2022 1:03 PM I participated in and supervised all aspects of this service. REVIEWED BY: Marisa Carter, PhD, ABPP Board Certified Clinical Neuropsychologist [facility] OUTPATIENT REHABILITATION SERVICES - NEUROPSYCHOLOGY [address] [place] [place] [address] Ms. Nabila Jewell was seen for a neuropsychological evaluation on 04/01/2022. A report describing the results of this evaluation will be posted after the follow-up appointment is completed. Linda Topete, PhD Clinical Psychologist Neuropsychology Fellow [facility] 04-01-2022 Note Ms. Nabila Jewell has a follow-up appointment on 04/17/2022 with Linda Topete, PhD & Marisa Carter, PhD ABPP in Neuropsychology, to discuss the results of the evaluation on 04/01/2022. This appointment will be conducted via [employer]. [facility] 02-03-2022 Note HNO ID: [id number] Author: Chas Romero, DO Service: ? Author Type: Physician Type: Progress Notes Filed: 02/03/2022 11:27 AM Note Text: Neuromuscular Clinic Follow up Visit SERVICE DATE: 02/03/2022 PCP: Smiley Urias MD [address] [place] [id number] Reason for Evaluation: Consultation requested by Self for an opinion regarding right leg weakness Family/Friend accompanying the patient today: none HPI: This is Ms. Nabila Jewell, a 36 year old female who presents to the [facility] with the chief complaint above. 02/03/2022: She [...] get up after this. She went to [facility] in [place]. She was evaluated and did testing and [...] significant dysarthria M (more content not included)... [facility] 02-03-2022 History of Present illness Narrative Neuromuscular Clinic Follow up Visit SERVICE DATE: 02/03/2022 PCP: Smiley Urias MD [address] [place] [address] Reason for Evaluation: Consultation requested by Self for an opinion regarding right leg weakness Family/Friend accompanying the patient today: none HPI: This is Ms. Nabila Jewell, a 36 year old female who presents to the [facility] with the chief complaint above. 02/03/2022: She [...] get up after this. She went to [facility] in [place]. She was evaluated and did testing and [...] which included preparing to see the patient, [id number] patient care, completing clinical documentation, obtaining and/or reviewing separately obtained history, performing a medically appropriate examination, and counseling and educating the patient/family/caregiver. documented in this encounter [facility] 01-30-2022 Miscellaneous Notes I called patient and communicated results of EMG testing, all questions answered. Advised her that she does not need to follow up with me. Chas Romero DO documented in this encounter [facility] 01-23-2022 Note HNO ID: [id number] Author: Sofi Hernandez MD Service: ? Author [...] [facility] Sofi Hernandez MD [facility] 01-23-2022 History of Present illness Narrative [...] [facility] Sofi Hernandez MD documented in this encounter [facility] 01-14-2022 Note PROCEDURE: XR KNEE L T [...] authenticated by: PASCUAL GAMBLE Date: 2022-01-14 12:01 [facility] 01-01-2022 Evaluation note Encounter Date Diagnosis [...] months if needed Continue restrictions- off work. [employer] Other 06-10-2022 Miscellaneous Notes* Telephone Encounter - Sky Rapp - 12/06/2021 11:31 AM EDT Relationship to patient: Self Reason for call (non-seizure related) Patient called asking about status of prior authorization [facility] order Patient of Dr. Romero [facility] Evaluation note* Encounter Date Diagnosis Assessment Notes [...] patient tolerated well with no adverse reactions. [employer] Other 05-17-2022 NoteHNO ID: [id number] Author: Chas Romero, DO Service: ? Author Type: Physician Type: Progress Notes Filed: 11/12/2021 2:58 PM Note Text: Neuromuscular Clinic New Patient Visit SERVICE DATE: 11/12/2021 PCP: Smiley Urias MD [address] [place] [id number] Reason for Evaluation: Consultation requested by Self for an opinion regarding right leg weakness Family/Friend accompanying the patient today: none HPI: This is Ms. Nabila Jewell, a 36 year old female who presents to the [facility] with the chief complaint above. She had an injury at work (March 2021)-she fell and hit her head on a prep table and fell onto her knee. She had difficulty moving to get up after this. She went to [facility] in [place]. She was evaluated and did testing and [...] Hip abduction 4+ (giveaw (more content not included)...[facility]05-17-2022 Instructions* Patient Instructions* Chas Romero DO - 11/12/2021 2:47 PM EDT You were seen today for right leg weakness, I ordered EMG to assess for this. Continue physical therapy exercises. [facility] History of Present illness Narrative* Chas Romero DO - 11/12/2021 2:00 PM EDT Neuromuscular Clinic New Patient Visit SERVICE DATE: 11/12/2021 PCP: Smiley Urias MD [address] [place] [address] Reason for Evaluation: Consultation requested by Self for an opinion regarding right leg weakness Family/Friend accompanying the patient today: none HPI: This is Ms. Nabila Jewell, a 36 year old female who presents to the [facility] with the chief complaint above. She had an injury at work (March 2021)-she fell and hit her head on a prep table and fell onto her knee. She had difficulty moving to get up after this. She went to [facility] in [place]. She was evaluated and did testing and [...] which included preparing to see the patient, [id number] patient care, completing clinical documentation, obtaining and/or reviewing separately obtained history, performing a medically appropriate examination, counseling and educating the pat ient/family/caregiver and ordering medications, tests, or procedures. [facility]-2022 Miscellaneous Notes* Telephone Encounter - Sky Rapp - 10/22/2021 10:54 AM EDT Referral, medical records received and scanned in for review. documented in [facility] encounter[facility]03-23-2022 Evaluation note* Encounter Date Diagnosis Assessment Notes Treatment Notes Treatment Clinical Notes Aug, Sprain of unspecified site of right knee, initial encounter (ICD-10 - S83.91XA) Continue physical therapy with approval [facility] and referral to neurology for knee [...] Continue restrictions-of f work, Continue with therapy [employer] Other 01-26-2022 Evaluation note* Encounter Date Diagnosis [...] pain. Continue restrictions-off work, Continue with therapy [employer] Other 12-15-2021 Evaluation note* Encounter Date Diagnosis [...] on the affected leg. Continue off work [employer] Other 11-17-2021 Evaluation note* Encounter Date Diagnosis [...] She has seen an occupational physician at [place] who is ordered a hinged knee brace [...] weeks therapy. Apply for for cortisone injection. [facility] Continue off work [employer] Other 10-20-2021 Evaluation note* Encounter Date Diagnosis [...] will submit for an MRI approval throught [facility]. Continue off of work. Mar, Other See orders for this visit as documented in the electronic medical record. [employer] Other 10-06-2021 NoteChief Complaint consultation for abscess [...] 2: Father. Hyperlipidemia: Father. Hypertension: Mother and Father.[facility]: Result Comment: Electronically Signed By: LAVELL QUARLES, Edson Strong\Date and Time Signed: 04/03/21 16:35 EDTEvaluation note* Diagnosis Right leg weakness- Primary Other musculoskeletal symptoms referable to limbs [facility] [employer] Other Evaluation note* Diagnosis Right leg weakness Other musculoskeletal symptoms referable to limbs [facility] Right leg weakness- Primary Other musculoskeletal symptoms referable to limbs documented in this encounter [facility] general Narrative - Reported* Type Description Date Medical History Chronic back pain Medical History HTN Medical History Anxiety Surgical History cholecystectomy Surgical History C section x 2 Surgical History pilonidal cyst Hospitalization History HTN [employer] Other History general Narrative - Reported* Type Description Date Medical History Chronic back pain Medical History HTN Medical History Anxiety Surgical History cholecystectomy Surgical History C section x 2 Surgical History pilonidal cyst Hospitalization History HTN Hospitalization History see surgeries [employer] Other Reason for referral (narrative)* Outpatient Procedure (Routine) - Authorized Specialty Diagnoses / Procedures Referred By Daniel perry Referred To [facility] Diagnoses Right leg weakness Procedures EMG(NEURO/NI) NERVE CONDUCTION STUDIES 9-10 STUDIES Chas Romero DO [facility] [place] [address] Neurological [place] [address] [place] [address] Referral ID Status Reason Start Date Expiration Date Visits Requested Visits Authorized [id number] Authorized Auto-Generat ed Referral 11/12/2021 11/12/2022 1 1 [facility] for referral (narrative)* Reason referral for neurolo gy for weakness of the right knee and second opinion Diagnosis 1 Sprain of unspecifie d site of right knee, initial encounter (S83.91XA) [facility] Referring Provider First Name Rolando Referring Provider Last Name Miracle Referring Provider Specialty Orthopedic Surgery Referred Organization Unknown Facility Referred Provider Specialty Neurology Referral Priority Routine [facility] Other Summary Purpose Family History No Family [...] and content) DATE CREATED AUTHOR 12/18/2017 [facility] DATE CREATED AUTHOR AUTHOR'S ORGANIZ ATION 03/02/2020 [facility] DATE CREATED AUTHOR AUTHOR'S ORGANIZ ATION 03/06/2021 [facility] DATE CREATED AUTHOR AUTHOR'S ORGANIZ ATION 04/10/2021 [facility] DATE CREATED AUTHOR AUTHOR'S ORGANIZ ATION 09/29/2021 [facility] DATE CREATED AUTHOR AUTHOR'S ORGANIZ ATION 03/06/2022 [facility] DATE CREATED AUTHOR AUTHOR'S ORGANIZ ATION 04/04/2022 [facility] DATE CREATED AUTHOR AUTHOR'S ORGANIZ ATION 08/29/2022 [facility] DATE CREATED AUTHOR AUTHOR'S ORGANIZ ATION 03/08/2023 [facility] DATE CREATED AUTHOR AUTHOR'S ORGANIZ ATION 07/22/2023 [facility] DATE CREATED AUTHOR AUTHOR'S ORGANIZ ATION 08/29/2023 [facility] Source Comments (unrecognize d section and content) In the event this informatio n is protected by the Federal Confidentiality of Alcohol and Drug Abuse Patient Records regulations: The Federal rules restrict any use of the information to criminally investigate or prosecute any alcohol or drug abuse patient.[facility] Health[facility] the event this information is protected by the Federal Confidentiality of Alcohol and Drug Abuse Patient Records regulations: The Federal rules restrict any use of the information to criminally investigate or prosecute any alcohol or drug abuse patient.[facility] HealthIn the event this information is protected by the Federal Confidentiality of Alcohol and Drug Abuse Patient Records regulations: The Federal rules restrict any use of the information to criminally investigate or prosecute any alcohol or drug abuse patient.[facility] Health[facility] the event this information is protected by the Federal Confidentiality of Alcohol and Drug Abuse Patient Records regulations: The Federal rules restrict any use of the information to criminally investigate or prosecute any alcohol or drug abuse patient.[facility] HealthIn the event this information is protected by the Federal Confidentiality of Alcohol and Drug Abuse Patient Records regulations: The Federal rules restrict any use of the information to criminally investigate or prosecute any alcohol or drug abuse patient.[facility] HealthIn the event this information is protected by the Federal Confidentiality of Alcohol and Drug Abuse Patient Records regulations: The Federal rules restrict any use of the information to criminally investigate or prosecute any alcohol or drug abuse patient.[facility] Reason for Visit (unrecogniz ed section and content) Reason Comments Received Outside Medical Records Reason Comments New Patient Musculoskeletal Problem RT lower extremi ties Reason Comments Insurance Authorization Reason Comments [facility] Specialty Diagnoses / Procedures Referred By Daniel perry Ref[facility] Diagnoses Right leg weakness Procedures [facility](NEURO/NI) NERVE CONDUCTION STUDIES 9-10 STUDIES Chas Romero, DO [address] [place] [address] [place] [id number] Referral ID Status Reason Start Date Expiration Date V isits Requested Visits Authorized [id number] Closed Auto-Generate d Referral 11/12/2021 11/12/2022 1 1 Reason Comments Results Reason Comments Established Patient Follow Up Visit Care Teams (unrecognized sec tion and content) Supervisor Whipped Topping Relationship Specialty Start Date End Date Smiley Urias MD PCP - General Family Practice 03/02/14 Serafin Bartlett, DO [address] [place] [phone] Referring Neurology 04/14/19 Rolando Turner, DO [address] [place] [address] Referring Orthopedics 10/11/21 Supervisor Whipped Topping Relationship Specialty Start Date End Date Smiley Urias MD PCP - General Family Practice 03/02/14 Serafin Bartlett, DO [address] [place] [phone] Referring Neurology 04/14/19 Rolando Turner, DO [address] [place] [address] Referring Orthopedics 10/11/21 Supervisor Whipped Topping Relationship Specialty Start Date End Date Smiley Urias MD PCP - General Family Practice 03/02/14 Serafin Bartlett, DO [address] [phone] Referring Neurology 04/14/19 Rolando Turner, DO [address] [place] [address] Referring Orthopedics 10/11/21 Zehra Holly, AMMONIA TECHNICIAN [address] [place] [phone] Referring Family Practice 11/19/21 Supervisor Whipped Topping Relationship Specialty Start Date End Date Smiley Urias MD PCP - General Family Practice 03/02/14 Sreafin Bartlett, DO [address] [phone] Referring Neurology 04/14/19 Rolando Turner, DO [address] [place] [address] Referring Orthopedics 10/11/21 Zehra Holly, AMMONIA TECHNICIAN [address] [place] [facility] [place] [phone] Referring Family Practice 11/19/21 Supervisor Whipped Topping Relationship Specialty Start Date End Date Smiley Urias MD PCP - General Family Practice 03/02/14 Serafin Bartlett, DO [address] [phone] Referring Neurology 04/14/19 Rolando Turner, DO [address] [place], [place] [id number] Referring Orthopedics 10/11/21 Zehra Holly, AMMONIA TECHNICIAN [address] [place] [address] Referring Family Practice 11/19/21 FOR RECORDS PERTAINING TO PATIENTS WHO [...] BE BASED ON THE PRIMARY CLINICAL RECORDS. [facility] [employer], [facility]. provides no warranty or guarantee of the accuracy or completeness of information in this document.
[2023-09-09 13:04] LABS: Basophils Percent Auto 0.7 % (0.2-2.0); Eosinophils Absolute Auto 0.1 10^3/uL (0.0-0.7); Hematocrit 39.7 % (36.0-48.0); Hemoglobin 12.9 g/dL (12.0-16.0); Immature Granulocytes Abs Auto 0.01 10^3/uL (0.00-0.03); Immature Granulocytes Pct Auto 0.2 % (0.0-0.5); Lymphocytes Absolute Auto 2.3 10^3/uL (1.2-3.8); Lymphocytes Percent Auto 38.6 % (20.5-60.0); Mean Corpuscular HGB Conc 32.5 g/dL (29.9-35.2); Mean Corpuscular Hemoglobin 28.5 pg (26.7-34.0); Mean Corpuscular Volume 87.8 fL (81.0-99.0); Mean Platelet Volume 8.6 fL (9.5-13.5); Monocytes Absolute Auto 0.3 10^3/uL (0.3-0.8); Monocytes Percent Auto 5.1 % (1.7-12.0); Neutrophils Absolute Auto 3.2 10^3/uL (1.4-6.5); Neutrophils Percent Auto 54.4 % (43.0-75.0); Platelet Count 320 10^3/uL (150-450); Red Blood Count 4.52 10^6/uL (4.20-5.40); Red Cell Distribution Width 11.9 % (11.0-15.0); White Blood Count 5.9 10^3/uL (4.0-11.0)
[2023-09-09 13:09] LABS: Erythrocyte Sedimentation Rate 38 mm/hr (<=20)
[2023-09-09 15:19] LABS: Alanine Aminotransferase 16 U/L (14-59); Albumin Globulin Ratio 0.7; Albumin Level 3.2 g/dL (3.4-5.0); Alkaline Phosphatase 93 U/L (46-116); Anion Gap 12.4; Aspartate Amino Transferase 16 U/L (15-37); BUN Creatinine Ratio 18.6; Bilirubin Total 0.3 mg/dL (0.2-1.0); C Reactive Protein 0.77 mg/dL (<=0.50); Calcium 9.2 mg/dL (8.5-10.1); Carbon Dioxide 27.7 mmol/L (21.0-32.0); Chloride 101 mmol/L (98-107); Estimated GFR (African America >60 (>=60); Estimated GFR (Non-African Ame >60 (>=60); Free T3 3.19 pg/mL (2.18-3.98); Globulin 4.6 g/dL; Glucose 84 mg/dL (74-106); Potassium 4.1 mmol/L (3.5-5.1); Sodium 137 mmol/L (136-145); Thyroid Stimulating Hormone 1.459 uIU/mL (0.358-3.740); Total Protein 7.8 g/dL (6.4-8.2); Uric Acid 5.6 mg/dL (2.6-6.0)
[2023-09-10 06:09] LABS: Antistreptolysin O Ab 217.8 IU/mL (0.0-200.0); Rheumatoid Factor (RF) <10.0 IU/mL (<14.0)
[2023-09-12 13:07] LABS: Antinuclear Antibodies, IFA Positive (.)
== END 2023-09-09 12:19 | disposition home or self-care (01) ==
LOC: LAB 12:20
PROVIDERS: PCP Family Medicine; Visit Provider Family Medicine
DX: Z00.00 Encounter for general adult medical examination without abnormal findings (principal)
CPT/HCPCS: 36415; 80053; 83735; 84436; 84443; 84481; 84550; 85025; 85652; 86038; 86060; 86140; 86431

== ENCOUNTER 2023-09-25 14:25 | Emergency (ER) | payer OTHER, SELFPAY ==
[2023-09-25 14:35] VITALS: BP 170/100; PULSE 102; TEMP 36.6; O2SAT 100; BMI 37.1
--- OUTSIDE RECORDS SUMMARY | 2023-09-25 14:44 | XMS_ITS | CCD ---
Author Organization [facility] Care Team Providers Care Costumed Character Name Role Phone EDSON VILLEGAS Venancio Unavailable Unavailab SMILEY Dawkins Unavailable Unavailable PROVIDER, UNKNOWN Attending Unavailable PROVIDER, UNKNOWN Admitting Unavailable mSiley Urias MD Primary Care Provider [phone] Serafin Bartlett DO Unavailable Rolando Turner DO Unavailable Zehra Holly CNP Unavailable [phone] Rolando Turner Unavailable Smiley Urias MD Primary Care Provider [phone] Serafin Bartlett DO Unavailable Rolando Turner DO Unavailable Zehra Holly CNP Unavailable [phone] SMILEY URIAS Referring Unavailable SMILEY URIAS Primary Care Unavailable EBRAHEIM, RUFINO Attending Unavailable EBHEIM, RUFINO Admitting Unavailable HEATHER, CHAS Attending Unavailable SMILEY URIAS Primary Care Unavailable SMILEY URIAS Primary Care Unavailable ZALE, CHAS Referring Unavailable SMILEY URIAS Primary Care Unavailable ZALE, CHAS Referring Unavailable HEATHER, CHAS Attending Unavailable NUZHAT ARZOLA Admitting Unavailable BRIDGETT Burgos, DR REIS Primary Care Unavailable NUZHAT ARZOLA Attending Unavailable MAVIS, DR PASCUAL Lo Consulting Unavailable NUZHAT ARZOLA Consulting Unavailable VERONICAY ., DR REIS Admitting Unavailable HOY ., DR REIS Attending Unavailable HOY ., DR REIS Consulting Unavailable BRIDGETT ., DR REIS Primary Care Unavailable MAVIS, DR PASCUAL Lo Consulting Unavailable HOY ., DR REIS Admitting Unavailable HOY ., DR REIS Attending Unavailable HOY ., DR REIS Consulting Unavailable HOY ., DR REIS Primary Care Unavailable Smiley Calvillo Consulting Unavailable HOY ., DR REIS Admitting Unavailable HOY ., DR REIS Attending Unavailable HOY ., DR REIS Consulting Unavailable HOY ., DR REIS Primary Care Unavailable WEST, DR JENNY Barbosa Consulting Unavailable HOY ., DR REIS Admitting Unavailable HOY ., DR REIS Attending Unavailable HOY ., DR REIS Consulting Unavailable HOY ., DR REIS Primary Care Unavailable MAVIS, DR PASCUAL Lo Consulting Unavailable HOY ., [...] HOLLEY Attending Unavailable PASCUAL URIBE Attending Unavailable EBRAHEIMRUFINO Attending Unavailable JENNY HOLLEY Attending Unavailable EBRAHEIM, [...] Unavailable Gianni QUARLES, Fabián Allen Attending Unavailable Germaineitis , Fabián Allen Attending Unavailable Gianni QUARLES, Fabián Allen Attending Unavailable Luiz Knight Attending Unavailab Luiz Brennan Admitting Unavailab Smiley Dawkins Primary Care Unavailable Allergies Allergy Classification Reported Allergen(s) Allergy Type Date of Onset Reaction(s) Facility (7 sources) Erythromycin; Translations: [ERYTHROMYCIN] Drug Allergy 2 anaphylaxis [facility] Repository (1 source) Erythromycin Drug Allergy 0 [facility] Repository (1 source) Erythromycin Drug Allergy 1 [facility] Repository (1 source) Erythromycin; Translations: [ERYTHROMYCIN LACTOBIONATE] Drug Allergy 2 [facility] Repository (1 source) ALLERGIES NOT ON FILE; Translations: [ALLERGIES NOT ON FILE] Propensity to adverse reactions (disorder) [facility] Repository (1 source) Azithromycin Drug Allergy 1 [facility] Repository (1 source) Erythromycin Drug Allergy 2 [facility] Repository Medications Current Medications Medication Drug Class(es) [...] on above: Take 1 capsule by mo [facility] once daily. hydroCHLOROthiazide 12.5 mg [...] Take 1 tablet by kael once daily. 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 Patient was sent the letter. [facility] 36on 03-05-2023 36 Patient states she received a note for work but she needs a note stating she is off work. Please email if MD writes she states it is for jobs and family services and she states that is what they need. [facility] Follow-Upon 03-04-2023 Follow-Up [id number] Rebecca Jewell 1985 F Date Provider Department Center 03/04/2023 PASCUAL HOPKINS MP PHYS MED Medical [facility]avi No family history on file Level of Service:05940 MD OFFICE/OUTPATIENT ESTABLISHED LOW MDM 20-29 MIN (GC) Reason for Visit and Comments: Concussion [264271] - [facility] Office Visiton 02-23-2023 Follow-up visit [id number] Rebecca Jewell 1985 F Date Provider Department Center 02/23/2023 JENNY MARAVILLA MP ORTHO MPORTHO No family history on file Level of Service:90679 MD POSTOP FOLLOW UP VISIT RELATED TO ORIGINAL PX (GC) Reason for Visit and Comments: Pain [136] Follow-up [937001] [facility] Office Visiton 01-12-2023 Follow-up visit [id number] Rebecca Jewell 1985 F Date Provider Department Center 01/12/2023 JENNY MARAVILLA MP ORTHO MPORTHO No family history on file Level of Service:59762 MD POSTOP FOLLOW UP VISIT RELATED TO ORIGINAL PX (GC) Reason for Visit and Comments: Post-op [483] Normal [facility] Orders Onlyon 01-08-2023 Orders Only [id number] Rebecca Jewell 1985 F Date Provider Department Center 01/08/2023 SHRUTHI TORREZ MP ORTHO MPORTHO No family history on file Normal [facility] OPNOTEon 01-01-2023 OPNOTE KNEE ARTHROSCOPY WIT H PARTILA LATERAL MENISCECTOMY (L), CHONDROPLASTY (L) Operative Note Date: 01/01/2023 Location: [facility] OR Name: Nabila Jewell, : 1985, Diagnosis Pre-op Diagnosis * 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 Condition: stable Jenny Holley Normal [facility] POCT GLUCOSE METER UNSOLICIT ED RESULTSon 01-01-2023 Glucose [Mass/Vol] 93 mg/dL Normal 70-105 [facility] Comment on above: Order Comment: Waive d Testing in the ED is performed under the ED CLIA certificate #[id number]. 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 NO JEWELRY BRING INS AND ID Take the meds we spoke about w/a sip of water DOS: ALL NORMAL AM MEDS ARRIVE AT [facility] [place] Normal [facility] Documentationon 12-09-2022 Documentation [id number] Rebecca Jewell 1985 F Date Provider Department Center 12/09/2022 PARRISH STOVER MP DIETARY Medical Pavi Chart Close Cosign Required by: Samir Mendoza MD[1894] No family history on file [facility] 36on 12-03-2022 36 [employer] from [facility] calls to state the last note sent with the [employer] has a statement that patient can work 4 hours per day 20 hours per week but [employer] sent yesterday did not have any thing listed but patient states there were no changes and she is still to be off work. I pulled up [employer] sent in by medical technical writer and I had forgotten to check the no changes box. In same note it does state by MD patient is not working and will be evaluated upon next ov. I informed her of the error and she requested I resend with the no changes box checked. Form was reprinted and faxed back. [facility] 36 Patient calls to sta te her [...] so she will call the [employer] back. [facility] Telephoneon 12-03-2022 Telephone [id number] Rebecca Jewell iva Vilma 1985 F Date Provider Department Center 12/03/2022 PASCUAL HOPKINS MP PHYS MED Medical Pavi No family history on file [facility] Follow-Upon 12-01-2022 Follow-Up [id number] Fanta,Ashvenancio Esparza 1985 F Date Provider Department Center 12/01/2022 PASCUAL HOPKINS MP PHYS MED Medical Pavi No family history on file Level of Service:21885 MD OFFICE/OUTPATIENT ESTABLISHED LOW MDM 20-29 MIN (GC) Reason for Visit and Comments: headaches [Other] - [facility] Follow-Upon 09-29-2022 Follow-Up [id number] Rebecca Jewell M 1985 F Date Provider Department Center 09/29/2022 PASCUAL HOPKINS MP PHYS MED Medical Pavi No family history on file Level of Service:39468 MD OFFICE/OUTPATIENT ESTABLISHED LOW MDM 20-29 MIN Reason for Visit and Comments: headaches [Other] Leg Pain [747867] - Right Normal [facility] Orders Onlyon 09-29-2022 Orders Only [id number] Rebecca Jewell M 1985 Date Provider Department Center 09/29/2022 PASCUAL HOPKINS MP PHYS MED Medical Pavi No family history on file Normal [facility] Office Visiton 09-15-2022 Follow-up visit [id number] Rebecca Jewell M 1985 Provider Department [place] 09/15/2022 JENNY MARAVILLA MP ORTHO MPORTHO No family history on file Level of Service:62311 MD OFFICE/OUTPATIENT ESTABLISHED MOD MDM 30-39 MIN (57) Reason for Visit and Comments: Pain [136] Normal [facility] CULTURE URINEon 08-22-2022 CULTURE URINE Culture Observations : MODERATE GROWTH OF MIXED GENITAL GISELLE. NO POTENTIAL PATHOGENS SEEN. Normal [facility] Comment on above: Performed By: #### T SH, LIPID, CMP, URIC, T7, CRP #### [facility] [address] [place] [address] Dr. Walker Gabriel UA RANDOM W/MICROSCOPICon BACTERIA MODERATE Abnormal NONE SEEN [facility] Comment on above: Performed By: #### U AMIC #### [facility] [address] [address] [address] Walker Gabriel Bilirubin Ql (U) Negative Normal NEGATIVE [facility] Comment on above: Performed By: #### U AMIC #### [facility] [address] [address] [address] Walker Gabriel CAST NONE SEEN Normal NONE SEEN [facility] Comment on above: Performed By: #### U AMIC #### [facility] [address] [address] [address] Walker Gabriel Clarity (U) CLEAR Normal CLEAR [facility] Comment on above: Performed By: #### U AMIC #### [facility] [address] [address] [address] Walker Gabriel Color (U) YELLOW Normal YELLOW [facility] Comment on above: Performed By: #### U AMIC #### [facility] [address] [address] [address] Walker Gabriel Crystals LM Nom (Urine sed) NONE SEEN Normal NONE SEEN [facility] Comment on above: Performed By: #### U AMIC #### [facility] [address] [address] [address] Walker Gabriel Epithelial cells LM Ql (Urine sed) FEW Abnormal NONE SEEN /RARE [facility] Comment on above: Performed By: #### U AMIC #### [facility] [address] [address] [address] Walker Gabriel Glucose Ql (U) Negative Normal NEGATIVE [facility] Comment on above: Performed By: #### U AMIC #### [facility] [address] [address] [address] Walker Gabriel Hemoglobin Ql (U) TRACE-LYSED Abnormal NEGATIVE [facility] Comment on above: Performed By: #### U AMIC #### [facility] [address] [address] [address] Walker Gabriel Ketones Ql (U) Negative Normal NEGATIVE [facility] Comment on above: Performed By: #### U AMIC #### [facility] [address] [address] [address] Walker Gabriel LEUKOCYTES Negative Normal NEGATIVE [facility] Comment on above: Performed By: #### U AMIC #### [facility] [address] [address] [address] Walker Gabriel MUCOUS NONE SEEN Normal NONE SEEN [facility] Comment on above: Performed By: #### U AMIC #### [facility] [address] [address] [address] Walker Gabriel Nitrite Ql (U) Negative Normal NEGATIVE [facility] Comment on above: Performed By: #### U AMIC #### [facility] [address] [address] [address] Walker Gabriel pH (U) 6.0 [pH] Normal 5-9 [facility] Comment on above: Performed By: #### U AMIC #### [facility] [address] [place] [address] Dr. Walker Gabriel RBC 0-2 Normal 0-2 [facility] Comment on above: Performed By: #### U AMIC #### [facility] [address] [address] [address] Walker Gabriel SPEC GRAVITY >=1.030 Abnormal 1.005-<=1.025 [facility] Comment on above: Performed By: #### U AMIC #### [facility] [address] [place] [address] Dr. Walker Gabriel UA PROTEIN Negative Normal NEGATIVE/ TRACE [facility] Comment on above: Performed By: #### U AMIC #### [facility] [address] [place] [address] Dr. Walker Gabriel Urobilinogen Qn (U) 0.2 {Natalie'U}/dL Normal 0.2 - 1. 0 [facility] Comment on above: Performed By: #### U AMIC #### [facility] [address] [place] [address] Dr. Walker Gabriel WBC 2-5 Abnormal NONE SEEN [facility] Comment on above: Performed By: #### U AMIC #### [facility] [address] [place] [address] Dr. Walker Gabriel XR KUB 1 VIEWon [...] Date: 2022-08-22 12:42 Normal [facility] Follow-Upon 08-21-2022 Follow-Up [id number] Rebecca Jewell M 1985 Provider Department Center 08/21/2022 CAROLE ENAMORADO MP ORTHO MPORTHO No family history on file Level of Service:17052 MD OFFICE/OUTPATIENT ESTABLISHED LOW MDM 20-29 MIN Reason for Visit and Comments: Pain [136] [facility] Clinical Supporton Clinical Support [id number] Rebecca Jewell M 1985 Provider Department [place] 08/06/2022 PARRISH STOVER MP DIETARY Medical Pavi Chart Close Cosign Required by: Samir Mendoza MD[1894] No family history on file Reason for Visit and Comments: Obesity [[id number]] Hypertension [822030] [facility] Erroneous Encounteron 2022 Erroneous Encounter [id number] Rebecca Jewell M 1985 [facility] Department [place] 08/06/2022 PARRISH STOVER MP DIETARY Medical Pavi No family history on file Reason for Visit and Comments: Error (VOID this visit) [77] [facility] Documentationon 07-31-2022 Documentation [id number] Rebecca Jewell M 1985 [facility] Department [place] 07/31/2022 PARRISH STOVER [facility]UTRN [place] [facility] Chart Close Cosign Required by: Samir Mendoza MD[1894] No family history on file [facility] Follow-Upon 07-02-2022 Follow-Up [id number] Rebecca Jewell M 1985 Provider Department [place] 07/02/2022 PASCUAL HOPKINS MP PHYS MED Medical Pavi No family history on file Level of Service:09108 MD OFFICE/OUTPATIENT ESTABLISHED MOD MDM 30-39 MIN Reason for Visit and Comments: Headache [52] Leg Pain [149924] - Right [facility] Refillon 05-28-2022 Refill [id number] Rebecca Jewell ey M 1985 Date Provider Department [place] 05/28/2022 PASCUAL HOPKINS MP PHYS MED Medical Pavi No family history on file Reason for Visit and Comments: Med Refill [983911] Normal [facility] Follow-Upon 05-15-2022 Follow-Up [id number] Rebecca Jewell iva M 1985 F Date Provider Department Center 05/15/2022 RUFNIO DICKERSON MP ORTHO MPORTHO Chart Close Cosign Required by: Rufino Perdomo MD[9387] No family history on file Level of Service:85098 MD OFFICE/OUTPATIENT ESTABLISHED LOW MDM 20-29 MIN (GC) Reason for Visit and Comments: Follow-up [132186] - Follow up on left knee pain. Normal [facility] Follow-Upon 04-30-2022 Follow-Up [id number] Rebecca Jewell iva Vilma 1985 F Date Provider Department Center 04/30/2022 PASCUAL HOPKINS MP PHYS MED Medical Pavi No family history on file Level of Service:50167 MD OFFICE/OUTPATIENT ESTABLISHED MOD MDM 30-39 MIN (GC) Reason for Visit and Comments: headaches [Other] Normal [facility] DARIO by IFAon 04-21-2022 Antinuclear Antibodies, IFA Negative Normal [facility] Comment on above: Result Comment: Nega tive <1:80 Borderline 1:80 Positive >1:80 ICAP nomenclature: AC-0 For more information about Hep-2 cell patterns use ANApatterns.org, the official website for the International Consensus on Antinuclear Antibody (DARIO) Patterns (ICAP). Performed By: #### T SH, LIPID, CMP, URIC, T7, CRP #### [facility] [address] [place], [place] [address] Dr. Walker Gabriel SLE PROFILE Aon 04-21-2022 Anti-DNA (DS) Ab Qn 3 IU/mL Normal 0-9 [facility] Comment on above: Result Comment: Nega tive <5 Equivocal 5 - 9 Positive >9 Performed By: #### S JUSTO #### [facility] [address] [place], [place] [address] Dr. Walker Gabriel Antichromatin Antibodies <0.2 Normal 0.0-0.9 [facility] Comment on above: Performed By: #### S JUSTO #### [facility] [address] [address] [address] Walker Gabriel RA Latex Turbid. <10.0 Normal <14.0 [facility] Comment on above: Performed By: #### S JUSTO #### [facility] [address] [place] [address] Dr. Walker Gabriel HAT MODEL Antibodies <0.2 Normal 0.0-0.9 [facility] Comment on above: Performed By: #### S JUSTO #### [facility] [address] [place] [address] Dr. Walker Gabriel Sjogren'lety Anti-SS-A <0.2 Normal 0.0-0.9 [facility] Comment on above: Performed By: #### S JUSTO #### [facility] [address] [place] [address] Dr. Walker Grayogrlinda'lety Anti-SS-B <0.2 Normal 0.0-0.9 [facility] Comment on above: Performed By: #### S JUSTO #### [facility] [address] [place] [address] Dr. Walker Gabriel Lemus Antibodies <0.2 Normal 0.0-0.9 [facility] Comment on above: Performed By: #### S JUSTO #### [facility] [address] [place] [address] Dr. Walker Gabriel ANTISTREPTOLYSIN O AB (ASO)o n 04-19-2022 Antistreptolysin O Ab 227.2 IU/mL Critically high 0.0-200.0 [facility] Comment on above: Performed By: #### T SH, LIPID, CMP, URIC, T7, CRP #### [facility] [address] [place] [address] Dr. Walker Gabriel INSULINon 04-19-2022 Insulin 20.8 uIU/mL Normal 2.6-24.9 [facility] Comment on above: Performed By: #### T SH, LIPID, CMP, URIC, T7, CRP #### [facility] [address] [place] [address] Dr. Walker Gbariel CBC AUTO DIFFon 04-18-2022 BASO # 0.0 103/ul Normal 0.0-0.1 [facility] Comment on above: Performed By: #### T SH, LIPID, CMP, URIC, T7, CRP #### [facility] [address] [place] [address] Dr. Walker Gabriel Basophils/100 WBC (Bld) 0.4 % Normal 0.2-2.0 [facility] Comment on above: Performed By: #### T SH, LIPID, CMP, URIC, T7, CRP #### [facility] [address] [place] [address] Dr. Walker Gabriel EO # 0.1 103/ul Normal 0.0-0.7 [facility] Comment on above: Performed By: #### T SH, LIPID, CMP, URIC, T7, CRP #### [facility] [address] [place] [address] Dr. Walker Gabriel Eosinophils/100 WBC (Bld) 1.4 % Normal 0.9-7.0 [facility] Comment on above: Performed By: #### T SH, LIPID, CMP, URIC, T7, CRP #### [facility] [address] [place] [address] Dr. Walker Gabriel Erythrocyte distribution width (RBC) [Ratio] 12.8 % Normal 11.0-15.0 [facility] Comment on above: Performed By: #### T SH, LIPID, CMP, URIC, T7, CRP #### [facility] [address] [place] [address] Dr. Walker Gabriel Hematocrit (Bld) [Volume fraction] 38.1 % Normal 36.0-48.0 [facility] Comment on above: Performed By: #### T SH, LIPID, CMP, URIC, T7, CRP #### [facility] [address] [place] [address] Dr. Walker Gabriel Hemoglobin (Bld) [Mass/Vol] 12.3 g/dL Normal 12.0-16.0 [facility] Comment on above: Performed By: #### T SH, LIPID, CMP, URIC, T7, CRP #### [facility] [address] [place] [address] Dr. Walker Gabriel IG # 0.03 10e3/ul Normal 0.00-0.03 [facility] Comment on above: Performed By: #### T SH, LIPID, CMP, URIC, T7, CRP #### [facility] [address] [place] [address] Dr. Walker Gabriel IG % 0.4 % Normal 0.0-0.5 [facility] Comment on above: Performed By: #### T SH, LIPID, CMP, URIC, T7, CRP #### [facility] [address] [place] [address] Dr. Walker Gabriel LYMPH # 2.6 103/ul Normal 1.2-3.8 [facility] Comment on above: Performed By: #### T SH, LIPID, CMP, URIC, T7, CRP #### [facility] [address] [place] [address] Dr. Walker Gabriel Lymphocytes/100 WBC (Bld) 35.5 % Normal 20.5-60.0 [facility] Comment on above: Performed By: #### T SH, LIPID, CMP, URIC, T7, CRP #### [facility] [address] [place] [address] Dr. Walker Gabriel MANUAL DIFF REQ NO Normal [facility] Comment on above: Performed By: #### T SH, LIPID, CMP, URIC, T7, CRP #### [facility] [address] [place] [address] Dr. Walker Gabriel MCH (RBC) [Entitic mass] 28.7 pg Normal 26.7-34.0 [facility] Comment on above: Performed By: #### T SH, LIPID, CMP, URIC, T7, CRP #### [facility] [address] [place] [address] Dr. Walker Gabriel MCHC (RBC) [Mass/Vol] 32.3 g/dL Normal 29.9-35.2 [facility] Comment on above: Performed By: #### T SH, LIPID, CMP, URIC, T7, CRP #### [facility] [address] [place] [address] Dr. Walker Gabriel MCV (RBC) [Entitic vol] 88.8 fL Normal 81.0-99.0 [facility] Comment on above: Performed By: #### T SH, LIPID, CMP, URIC, T7, CRP #### [facility] [address] [place] [address] Dr. Walker Gabriel MONO # 0.4 103/ul Normal 0.3-0.8 [facility] Comment on above: Performed By: #### T SH, LIPID, CMP, URIC, T7, CRP #### [facility] [address] [place] [address] Dr. Walker Gabriel Monocytes/100 WBC (Bld) 6.1 % Normal 1.7-12.0 [facility] Comment on above: Performed By: #### T SH, LIPID, CMP, URIC, T7, CRP #### [facility] [address] [place] [address] Dr. Walker Gabriel NEUT # 4.0 103/ul Normal 1.4-6.5 [facility] Comment on above: Performed By: #### T SH, LIPID, CMP, URIC, T7, CRP #### [facility] [address] [place] [address] Dr. Walker Gabriel Neutrophils/100 WBC (Bld) 56.2 % Normal 43.0-75.0 [facility] Comment on above: Performed By: #### T SH, LIPID, CMP, URIC, T7, CRP #### [facility] [address] [place] [address] Dr. Walker Gabriel Platelet mean volume (Bld) [Entitic vol] 8.3 fL Critically low 9.5-13.5 [facility] Comment on above: Performed By: #### T SH, LIPID, CMP, URIC, T7, CRP #### [facility] [address] [place] [address] Dr. Walker Gabriel PLT 328 103/ul Normal 150-450 [facility] Comment on above: Performed By: #### T SH, LIPID, CMP, URIC, T7, CRP #### [facility] [address] [address] [address] Walker Gabriel RBC 4.29 106/ul Normal 4.20-5.40 [facility] Comment on above: Performed By: #### T SH, LIPID, CMP, URIC, T7, CRP #### [facility] [address] [place] [address] Dr. Walker Gabriel WBC 7.2 103/ul Normal 4.0-11.0 [facility] Comment on above: Performed By: #### T SH, LIPID, CMP, URIC, T7, CRP #### [facility] [address] [place] [address] Dr. Walker Gabriel CRPon 04-18-2022 CRP 1.3 mg/dL Critically high <=1.0 [facility] Comment on above: Performed By: #### T SH, LIPID, CMP, URIC, T7, CRP #### [facility] [address] [place] [address] Dr. Walker Gabriel FREE THYROXINE INDEX T7on FTI 2.91 Normal 1.30-4.50 [facility] Comment on above: Performed By: #### T SH, LIPID, CMP, URIC, T7, CRP #### [facility] [address] [place] [address] Dr. Walker Gabriel T3U 31.0 % Normal 30.0-39.0 [facility] Comment on above: Performed By: #### T SH, LIPID, CMP, URIC, T7, CRP #### [facility] [address] [place] [address] Dr. Walker Gabriel T4 [Mass/Vol] 9.40 ug/dL Normal 4.80-13.90 [facility] Comment on above: Performed By: #### T SH, LIPID, CMP, URIC, T7, CRP #### [facility] [address] [place] [address] Dr. Walker Gabriel GLYCOHEMOGLOBIN A1Con 2021 ADA RECOMMENDATION SEE BELOW Normal [facility] Comment on above: Result Comment: ADA RECOMMENDED LIMIT 4.0 - 6.0 ADA THERAPEUTIC TARGET < 7.0 ACTION SUGGESTED > 7.0 Performed By: #### T SH, LIPID, CMP, URIC, T7, CRP #### [facility] [address] [address] [address] Walker Gabriel Glucose [Mass/Vol] 114 mg/dL Normal [facility] Comment on above: Performed By: #### T SH, LIPID, CMP, URIC, T7, CRP #### [facility] [address] [place] [address] Dr. Walker Gabriel HbA1c (Bld) [Mass fraction] 5.6 % Normal 4.5-6.2 [facility] Comment on above: Performed By: #### T SH, LIPID, CMP, URIC, T7, CRP #### [facility] [address] [place] [address] Dr. Walker Gabriel IRONon 04-18-2022 Iron [Mass/Vol] 34.0 ug/dL Critically low 50.0-170.0 [facility] Comment on above: Performed By: #### I FRANCISCO #### [facility] [address] [place] [address] Dr. Walker Gabriel LIPID PROFILEon 04-18-2022 CHOL-HDL RATIO NORM SEE BELOW Normal [facility] Comment on above: Result Comment: 3.3 - 4.4 LOW RISK 4.4 - 7.1 AVERAGE RISK 7.1 - 11.0 MODERATE RISK >11.0 HIGH RISK Performed By: #### T SH, LIPID, CMP, URIC, T7, CRP #### [facility] [address] [place] [address] Dr. Walker Gabriel Cholesterol [Mass/Vol] 174 mg/dL Normal <=200 [facility] Comment on above: Performed By: #### T SH, LIPID, CMP, URIC, T7, CRP #### [facility] [address] [place] [address] Dr. Walker Gabriel Cholesterol in HDL [Mass/Vol] 70 mg/dL Critically high 40-60 [facility] Comment on above: Performed By: #### T SH, LIPID, CMP, URIC, T7, CRP #### [facility] [address] [place] [address] Dr. Walker Gabriel Cholesterol in LDL [Mass/Vol] 92.8 mg/dL Normal [facility] Comment on above: Performed By: #### T SH, LIPID, CMP, URIC, T7, CRP #### [facility] [address] [address] [address] Walker aGbriel Cholesterol.total/Ch olesterol in HDL [Mass ratio] 2.5 {ratio} Normal [facility] Comment on above: Performed By: #### T SH, LIPID, CMP, URIC, T7, CRP #### [facility] [address] [address] [address] Walker Gabriel HDL NORMAL > or = 60 mg/dl - LO W CARDIOVASCULAR RISK <40 mg/dl - HIGH CARDIOVASCULAR RISK Normal [facility] Comment on above: Performed By: #### T SH, LIPID, CMP, URIC, T7, CRP #### [facility] [address] [address] [address] Walker Gabriel LDL CALC NORMAL SEE BELOW Normal [facility] Comment on above: Result Comment: <100 mg/dl OPTIMAL 100 - 129 mg/dl NEAR OR ABOVE OPTIMAL 130 - 159 mg/dl BORDERLINE HIGH 160 - 189 mg/dl HIGH >190 mg/dl VERY HIGH Performed By: #### T SH, LIPID, CMP, URIC, T7, CRP #### [facility] [address] [address] [address] Walker Gabriel Triglyceride [Mass/Vol] 56 mg/dL Normal <=150 [facility] Comment on above: Performed By: #### T SH, LIPID, CMP, URIC, T7, CRP #### [facility] [address] [address] [address] Walker Gabriel VLDL CALC 11.2 mg/dL Normal [facility] Comment on above: Performed By: #### T SH, LIPID, CMP, URIC, T7, CRP #### [facility] [address] [address] [address] Walker Gabriel PROF 14(COMP METB)on 022 Albumin [Mass/Vol] 3.0 g/dL Critically low 3.4-5.[address] [facility] Comment on above: Performed By: #### T SH, LIPID, CMP, URIC, T7, CRP #### [facility] [address] [address] [address] Walker Gabriel Albumin/Globulin [Mass ratio] 0.6 {ratio} Normal [facility] Comment on above: Performed By: #### T SH, LIPID, CMP, URIC, T7, CRP #### [facility] [address] [place] [address] Dr. Walker Gabriel ALP [Catalytic activity/Vol] 102 U/L Normal 46-116 [facility] Comment on above: Performed By: #### T SH, LIPID, CMP, URIC, T7, CRP #### [facility] [address] [place] [address] Dr. Walker Gabriel ALT [Catalytic activity/Vol] 19 U/L Normal 14-59 [facility] Comment on above: Performed By: #### T SH, LIPID, CMP, URIC, T7, CRP #### [facility] [address] [place] [address] Dr. Walker Gabriel Anion gap [Moles/Vol] 7.9 mmol/L Normal [facility] Comment on above: Performed By: #### T SH, LIPID, CMP, URIC, T7, CRP #### [facility] [address] [place] [address] Dr. Walker Gabriel AST [Catalytic activity/Vol] 12 U/L Critically low 15-37 [facility] Comment on above: Performed By: #### T SH, LIPID, CMP, URIC, T7, CRP #### [facility] [address] [place] [address] Dr. Walker Gabriel Bilirubin [Mass/Vol] 0.1 mg/dL Critically low 0.2-1.0 [facility] Comment on above: Performed By: #### T SH, LIPID, CMP, URIC, T7, CRP #### [facility] [address] [place] [address] Dr. Walker Gabriel Calcium [Mass/Vol] 8.9 mg/dL Normal 8.5-10.1 [facility] Comment on above: Performed By: #### T SH, LIPID, CMP, URIC, T7, CRP #### [facility] [address] [address] [address] Walker Gabriel Chloride [Moles/Vol] 103 mmol/L Normal 98-107 [facility] Comment on above: Performed By: #### T SH, LIPID, CMP, URIC, T7, CRP #### [facility] [address] [address] [address] Walker Gabriel CO2 [Moles/Vol] 28.4 mmol/L Normal 21.0-32.0 [facility] Comment on above: Performed By: #### T SH, LIPID, CMP, URIC, T7, CRP #### [facility] [address] [place] [address] Dr. Walker Gabriel Creatinine [Mass/Vol] 0.91 mg/dL Normal 0.55-1.02 [facility] Comment on above: Performed By: #### T SH, LIPID, CMP, URIC, T7, CRP #### [facility] [address] [place] [address] Dr. Walker Gabriel EGFR-AF CITIZEN [place] >60 Normal >=60 [facility] Comment on above: Performed By: #### T SH, LIPID, CMP, URIC, T7, CRP #### [facility] [address] [place] [address] Dr. Walker Gabriel EGFR-NON AF CITIZEN [place] >60 Normal >=60 [facility] Comment on above: Performed By: #### T SH, LIPID, CMP, URIC, T7, CRP #### [facility] [address] [place] [address] Dr. Walker Gabriel Globulin (S) [Mass/Vol] 4.7 g/dL Normal [facility] Comment on above: Performed By: #### T SH, LIPID, CMP, URIC, T7, CRP #### [facility] [address] [place] [address] Dr. Walker Gabriel Glucose [Mass/Vol] 87 mg/dL Normal 74-106 [facility] Comment on above: Performed By: #### T SH, LIPID, CMP, URIC, T7, CRP #### [facility] [address] [place] [address] Dr. Walker Gabriel Potassium [Moles/Vol] 4.3 mmol/L Normal 3.5-5.1 [facility] Comment on above: Performed By: #### T SH, LIPID, CMP, URIC, T7, CRP #### [facility] [address] [place] [address] Dr. Walker Gabriel Protein [Mass/Vol] 7.7 g/dL Normal 6.4-8.2 [facility] Comment on above: Performed By: #### T SH, LIPID, CMP, URIC, T7, CRP #### [facility] [address] [place] [address] Dr. Walker Gabriel Sodium [Moles/Vol] 135 mmol/L Critically low 136-145 [facility] Comment on above: Performed By: #### T SH, LIPID, CMP, URIC, T7, CRP #### [facility] [address] [place] [address] Dr. Walker Gabriel Urea nitrogen [Mass/Vol] 21.0 mg/dL Critically high 7.0-18.0 [facility] Comment on above: Performed By: #### T SH, LIPID, CMP, URIC, T7, CRP #### [facility] [address] [place] [address] Dr. Walker Gabriel Urea nitrogen/Creatinine [Mass ratio] 23.1 mg/mg Normal [facility] Comment on above: Performed By: #### T SH, LIPID, CMP, URIC, T7, CRP #### [facility] [address] [place] [address] Dr. Walker Gabriel TSHon 04-18-2022 TSH 2.570 uIU/mL Normal 0.358-3.740 [facility] Comment on above: Performed By: #### T SH, LIPID, CMP, URIC, T7, CRP #### [facility] [address] [place] [address] Dr. Walker Gabriel URIC ACID SERUMon 04-18-2022 Urate [Mass/Vol] 5.7 mg/dL Normal 2.6-6.0 [facility] Comment on above: Performed By: #### T SH, LIPID, CMP, URIC, T7, CRP #### [facility] [address] [address] [address] Walker Gabriel US VENOUS DOPPLER L [...] by: JENNY ARIAS Date: 2022-04-18 18:43 Normal [facility] Clinical Supporton 2 Clinical Support [id number] Rebecca Jewell 1985 Provider Department [place] 04/17/2022 MARISA SIMON [facility] No family history on file Reason for Visit and Comments: Worker's Compensation [732] Follow-up [967891] Concussion [353177] Normal [facility] Follow-Upon 04-03-2022 Follow-Up [id number] Rebecca Jewell 1985 [facility] Department [place] 04/03/2022 260-[facility]FINO PERDOMO [facility] Close Cosign Required by: Rufino Perdomo MD[[id number]] No family history on file Level of Service:36799 MD OFFICE/OUTPATIENT ESTABLISHED LOW MDM 20-29 MIN (GC) Reason for Visit and Comments: Pain [136] Edema [[id number]] Follow-up [741232] Normal [facility] Erroneous Encounteron 2021 Erroneous Encounter [id number] Rebecca Jewell 1985 [facility] Provider Department [place] 03/31/2022 [id number] ERNANDEZ [facility] No family history on file Reason for Visit and Comments: Error (VOID this visit) [77] Normal [facility] CNOVon 02-03-2022 CNOV Office Visit (NMUAMH ) NABILA JEWELL ([id number]) 1985 F Date Time Provider Department 02/03/22 11:00 AM CHAS ROMERO [facility] During your visit today, we recorded the following information about you: Pulse Blood pressure Weight Height 66/minute 117/84 122.7 kg 1.549 m Chas oRmero DO 02/03/2022 11:27 AM Signed [facility] Follow up Visit SERVICE DATE: 02/03/2022 PCP: Smiley Urias MD [address] [place] [address] Reason for Evaluation: Consultation requested by Self for an opinion regarding right leg weakness Family/Friend accompanying the patient today: none HPI: This is Ms. Nabila Jewell, a 36 year old female who presents to the [facility] with the chief complaint above. 02/03/2022: [...] get up after this. She went to [facility] in [place]. She was evaluated and did testing and [...] VIII: He (more content not included)... Normal [facility] 01[facility]30-2022 [facility] NABILA JEWELL ([id number]) 1985 F Date Time Provider Department 01/30/22 [...] Status:Closed by CHAS ROMERO on 01/30/22 Normal [facility] MRI KNEE LT WO CONon 022 [...] SMILEY CALVILLO Date: 2022-01-28 12:18 Normal [facility] EMG(NEURO/NI)on 01-23-2022 [facility] MG MAMM DIAGNOSTIC 3D GREGORY CA Don 01-22-2022 MG MAMM DIAGNOSTIC 3D GREGORY CAD Patient: NABILA JEWELL. Exam Date: 01/22/2022 : 1985 Gender:F Ordering : DR SMILEY URIAS . Admission #: [id number] Family : Order #: [id number] CLICK HERE TO VIEW EXAM RADIOLOGY REPORT [...] Family Cancers None LOCATION: [facility] BREAST COMPOSITION: Scattered areas fibroglandular density. FINDINGS: [...] Gamble M.D. on 01/22/2022 at 15:30 Normal [facility] 12-06-2021 [facility] (HEATHERMN) FANTA,NABILA Vilma ([id number]) 1985 F Date Time Provider Department 12/06/21 [...] Fully Assessed Reason for Visit: Insurance Authorization [[id number]] Prescriptions as of 12/08/2021 - potassium chloride [...] Encounter Status:Closed by SKY RAPP on 12/06/21 [facility] 11-15-2021 [facility] NABILA JEWELL ([id number]) 1985 F Date Time Provider Department 11/15/21 CHAS ROMERO During your visit today, we recorded the following information about you: Rosana Cope 11/15/2021 10:02 AM Addendum Pt requesting Dr. Romero send in C9 to [facility] [employer] phone [phone] ext [phone] Kassy PLEASE FAX TO:[phone] Also needs this faxed to [employer] [place], [place] [employer] and [employer] [facility] Pt will call back with fax numbers. Rosana Cope Allergies As of Date: 11/15/2021 (No Known [...] nodule (HCC) [E27.8] 05/18/2015 Encounter Status:Closed by ASHLEY COPE AMANDA on 04/03/22 [facility] CNOVon 11-12-2021 CNOV Office Visit (NMUA ) NABILA JEWELL ([id number]) 1985 F Date Time Provider Department 11/12/21 2:00 PM CHAS ROMERO [facility] During your visit today, we recorded the following information about you: Pulse Blood pressure Weight Height 69/minute 120/82 118.6 kg 1.549 m Chas Romero DO 11/12/2021 2:58 PM Signed [facility] New Patient Visit SERVICE DATE: 11/12/2021 PCP: Smiley Urias MD [address] [place] [address] Reason for Evaluation: Consultation requested by Self for an opinion regarding right leg weakness Family/Friend accompanying the patient today: none HPI: This is Ms. Nabila Jewell, a 36 year old female who presents to the [facility] with the chief complaint above. She had an injury at work (March 2021)-she fell and hit her head on a prep table and fell onto her knee. She had difficulty moving to get up after this. She went to [facility] in [place]. She was evaluated and did testing and [...] - FDI (more content not included)... Normal [facility] Javier 10-22-2021 CNPN Telephone (NENMMN) NABILA JEWELL ([id number]) 1985 F Date Time Provider Department 10/22/21 [...] Reason for Visit: Received Outside Medical Records [3572] Prescriptions as of 10/22/2021 - Hydrochlorothiazide 12.5 [...] Status:Closed by SKY RAPP on 10/22/21 Normal [facility] CARDIAC MACIE 3-6on 2 CK [Catalytic activity/Vol] 135 U/L Normal 30-135 [facility] Comment on above: Performed By: #### C MREP #### [facility] [address] [place] [address] Dr. Walker Gabriel CK.MB [Mass/Vol] 0.84 ng/mL Normal <=2.37 [facility] Comment on above: Performed By: #### C MREP #### [facility] [address] [address] [address] Walker Gabriel HSTROP 8.5 pg/mL Normal 4.0-35.5 [facility] Comment on above: Result Comment: CUT- OFF POINTS HAVE BEEN ESTABLISHED BASED ON THE FOURTH UNIVERSAL DEFINITIONS OF MYOCARDIAL INFARCTION. THE UPPER REFERENCE LIMIT (URL) OF TROPONIN, DEFINED THE 99TH PERCENTILE OF cTnI DISTRIBUTION IN A REFERENCE POPULATION, HAS BEEN CONFIRMED THE DECISION THRESHOLD FOR [place] DIAGNOSIS. Performed By: #### C MREP #### [facility] [address] [address] [address] Walker Gabriel CARDIAC MACIE ADMITon 022 CK [Catalytic activity/Vol] 114 U/L Normal 30-135 [facility] Comment on above: Performed By: #### T SH, LIPID, CMP, URIC, T7, CRP #### [facility] [address] [place] [address] Dr. Walker Gabriel CK.MB [Mass/Vol] 0.71 ng/mL Normal <=2.37 [facility] Comment on above: Performed By: #### T SH, LIPID, CMP, URIC, T7, CRP #### [facility] [address] [place] [address] Dr. Walker Gabriel HSTROP 6.1 pg/mL Normal 4.0-35.5 [facility] Comment on above: Result Comment: CUT- OFF POINTS HAVE BEEN ESTABLISHED BASED ON THE FOURTH UNIVERSAL DEFINITIONS OF MYOCARDIAL INFARCTION. THE UPPER REFERENCE LIMIT (URL) OF TROPONIN, DEFINED THE 99TH PERCENTILE OF cTnI DISTRIBUTION IN A REFERENCE POPULATION, HAS BEEN CONFIRMED THE DECISION THRESHOLD FOR [place] DIAGNOSIS. Performed By: #### T SH, LIPID, CMP, URIC, T7, CRP #### [facility] [address] [place] [address] Dr. Walker Gabriel COLLINS 43.0 ng/mL Normal <=61.5 [facility] Comment on above: Performed By: #### T SH, LIPID, CMP, URIC, T7, CRP #### [facility] [address] [place] [address] Dr. Walker Gabriel CBC AUTO DIFFon 09-06-2021 BASO # 0.0 103/ul Normal 0.0-0.1 [facility] Comment on above: Performed By: #### T SH, LIPID, CMP, URIC, T7, CRP #### [facility] [address] [place] [address] Dr. Walker Gabriel Basophils/100 WBC (Bld) 0.5 % Normal 0.2-2.0 [facility] Comment on above: Performed By: #### T SH, LIPID, CMP, URIC, T7, CRP #### [facility] [address] [place] [address] Dr. Walker Gabriel EO # 0.0 103/ul Normal 0.0-0.7 [facility] Comment on above: Performed By: #### T SH, LIPID, CMP, URIC, T7, CRP #### [facility] [address] [place] [address] Dr. Walker Gabriel Eosinophils/100 WBC (Bld) 0.1 % Critically low 0.9-7.0 [facility] Comment on above: Performed By: #### T SH, LIPID, CMP, URIC, T7, CRP #### [facility] [address] [place] [address] Dr. Walker Gabriel Erythrocyte distribution width (RBC) [Ratio] 12.3 % Normal 11.0-15.0 [facility] Comment on above: Performed By: #### T SH, LIPID, CMP, URIC, T7, CRP #### [facility] [address] [place] [address] Dr. Walker Garbiel Hematocrit (Bld) [Volume fraction] 41.4 % Normal 36.0-48.0 [facility] Comment on above: Performed By: #### T SH, LIPID, CMP, URIC, T7, CRP #### [facility] [address] [place] [address] Dr. Walker Gabriel Hemoglobin (Bld) [Mass/Vol] 13.6 g/dL Normal 12.0-16.0 [facility] Comment on above: Performed By: #### T SH, LIPID, CMP, URIC, T7, CRP #### [facility] [address] [place] [address] Dr. Walker Gabriel IG # 0.02 10e3/ul Normal 0.00-0.03 [facility] Comment on above: Performed By: #### T SH, LIPID, CMP, URIC, T7, CRP #### [facility] [address] [place] [address] Dr. Walker Gabriel IG % 0.2 % Normal 0.0-0.5 [facility] Comment on above: Performed By: #### T SH, LIPID, CMP, URIC, T7, CRP #### [facility] [address] [place] [address] Dr. Walker Gabriel LYMPH # 2.6 103/ul Normal 1.2-3.8 [facility] Comment on above: Performed By: #### T SH, LIPID, CMP, URIC, T7, CRP #### [facility] [address] [place] [address] Dr. Walker Gabriel Lymphocytes/100 WBC (Bld) 32.4 % Normal 20.5-60.0 [facility] Comment on above: Performed By: #### T SH, LIPID, CMP, URIC, T7, CRP #### [facility] [address] [place] [address] Dr. Walker Gabriel MANUAL DIFF REQ NO Normal [facility] Comment on above: Performed By: #### T SH, LIPID, CMP, URIC, T7, CRP #### [facility] [address] [place] [address] Dr. Walker Gabriel MCH (RBC) [Entitic mass] 28.8 pg Normal 26.7-34.0 [facility] Comment on above: Performed By: #### T SH, LIPID, CMP, URIC, T7, CRP #### [facility] [address] [place] [address] Dr. Walker Gabriel MCHC (RBC) [Mass/Vol] 32.9 g/dL Normal 29.9-35.2 [facility] Comment on above: Performed By: #### T SH, LIPID, CMP, URIC, T7, CRP #### [facility] [address] [place] [address] Dr. Walker Gabriel MCV (RBC) [Entitic vol] 87.5 fL Normal 81.0-99.0 [facility] Comment on above: Performed By: #### T SH, LIPID, CMP, URIC, T7, CRP #### [facility] [address] [place] [address] Dr. Walker Gabriel MONO # 0.4 103/ul Normal 0.3-0.8 [facility] Comment on above: Performed By: #### T SH, LIPID, CMP, URIC, T7, CRP #### [facility] [address] [place] [address] Dr. Walker Gabriel Monocytes/100 WBC (Bld) 5.0 % Normal 1.7-12.0 [facility] Comment on above: Performed By: #### T SH, LIPID, CMP, URIC, T7, CRP #### [facility] [address] [address] [address] Walker Gabriel NEUT # 5.0 103/ul Normal 1.4-6.5 [facility] Comment on above: Performed By: #### T SH, LIPID, CMP, URIC, T7, CRP #### [facility] [address] [address] [address] Walker Gabriel Neutrophils/100 WBC (Bld) 61.8 % Normal 43.0-75.0 [facility] Comment on above: Performed By: #### T SH, LIPID, CMP, URIC, T7, CRP #### [facility] [address] [place] [address] Dr. Walker Gabriel Platelet mean volume (Bld) [Entitic vol] 8.4 fL Critically low 9.5-13.5 [facility] Comment on above: Performed By: #### T SH, LIPID, CMP, URIC, T7, CRP #### [facility] [address] [address] [address] Walker Gabriel PLT 347 103/ul Normal 150-450 [facility] Comment on above: Performed By: #### T SH, LIPID, CMP, URIC, T7, CRP #### [facility] [address] [address] [address] Walker Gabriel RBC 4.73 106/ul Normal 4.20-5.40 [facility] Comment on above: Performed By: #### T SH, LIPID, CMP, URIC, T7, CRP #### [facility] [address] [address] [address] Walker Gabriel WBC 8.1 103/ul Normal 4.0-11.0 [facility] Comment on above: Performed By: #### T SH, LIPID, CMP, URIC, T7, CRP #### [facility] [address] [address] [address] Walker Gabriel CRPon 09-06-2021 CRP 0.7 mg/dL Normal <=1.0 [facility] Comment on above: Performed By: #### T SH, LIPID, CMP, URIC, T7, CRP #### [facility] [address] [place] [address] Dr. Walker Gabriel PROF CHEM 8 (BAS METB)on Anion gap [Moles/Vol] 10.2 mmol/L Normal [facility] Comment on above: Performed By: #### T SH, LIPID, CMP, URIC, T7, CRP #### [facility] [address] [place] [address] Dr. Walker Gabriel Calcium [Mass/Vol] 9.0 mg/dL Normal 8.4-10.2 [facility] Comment on above: Performed By: #### T SH, LIPID, CMP, URIC, T7, CRP #### [facility] [address] [place] [address] Dr. Walker Gabriel Chloride [Moles/Vol] 99 mmol/L Normal 98-107 [facility] Comment on above: Performed By: #### T SH, LIPID, CMP, URIC, T7, CRP #### [facility] [address] [place] [address] Dr. Walker Gabriel CO2 [Moles/Vol] 26.5 mmol/L Normal 22.0-30.0 [facility] Comment on above: Performed By: #### T SH, LIPID, CMP, URIC, T7, CRP #### [facility] [address] [place] [address] Dr. Walker Gabriel Creatinine [Mass/Vol] 1.19 mg/dL Critically high 0.52-1.04 [facility] Comment on above: Performed By: #### T SH, LIPID, CMP, URIC, T7, CRP #### [facility] [address] [place] [address] Dr. Walker Gabriel EGFR-AF CITIZEN [place] >60 Normal >=60 [facility] Comment on above: Performed By: #### T SH, LIPID, CMP, URIC, T7, CRP #### [facility] [address] [place] [address] Dr. Walker Gabriel EGFR-NON AF CITIZEN [place] 51 mL/min/1.73m2 Critically low >=60 [facility] Comment on above: Performed By: #### T SH, LIPID, CMP, URIC, T7, CRP #### [facility] [address] [address] [address] Walker Gabriel Glucose [Mass/Vol] 105 mg/dL Normal 74-106 [facility] Comment on above: Performed By: #### T SH, LIPID, CMP, URIC, T7, CRP #### [facility] [address] [address] [address] Walker Gabriel Potassium [Moles/Vol] 3.7 mmol/L Normal 3.4-5.0 [facility] Comment on above: Performed By: #### T SH, LIPID, CMP, URIC, T7, CRP #### [facility] [address] [address] [address] Walker Gabriel Sodium [Moles/Vol] 132 mmol/L Critically low 137-145 [facility] Comment on above: Performed By: #### T SH, LIPID, CMP, URIC, T7, CRP #### [facility] [address] [address] [address] Walker Gabriel Urea nitrogen [Mass/Vol] 15.0 mg/dL Normal 7.0-17.0 [facility] Comment on above: Performed By: #### T SH, LIPID, CMP, URIC, T7, CRP #### [facility] [address] [address] [address] Walker Gabriel Urea nitrogen/Creatinine [Mass ratio] 12.6 mg/mg Normal [facility] Comment on above: Performed By: #### T SH, LIPID, CMP, URIC, T7, CRP #### [facility] [address] [address] [address] Walker Gabriel SED RATE [facility] 2021 SED RATE 49 mm/hr Critically high <=20 [facility] Comment on above: Performed By: #### T SH, LIPID, CMP, URIC, T7, CRP #### [facility] [address] [place] [address] Dr. Walker Gabriel XR CHEST 2 Von [...] by: CANDICE PONCE Date: 2021-09-06 20:51 Normal [facility] April 09, 2021 Smiley Urias, [address] [place] [address] [place] [address] Re: NABILA JEWELL Date of : 1985 Thank you for your referral of Nabila Jewell who was seen on consultation for abscess x 2. I have enclosed my consultation note for your review. Sincerely, Edson Davalos MD General Surgery Normal [facility] Facesheeton 04-08-2021 Facesheet [id number] 0CD:127 Normal [facility] Ambulatory Clinical Summaryo n 04-03-2021 Ambulatory Clinical Summary {[id number] }[id number] Normal [facility] Physician Referralon 021 Physician Referral [id number] 0CD:127 Normal [facility] SYPHILIS SCREENING WITH REFL EXon 03-06-2021 SYPHILIS TOTAL AB Non-Reactive Normal NONREACTIVE [facility] Comment on above: Result Comment: No s ignificant level of Treponema pallidum antibody detected. Repeat testing in 2 to 4 weeks may be considered if early infection or incubating syphilis infection is suspected. Performed By: #### S YPHR #### [facility] [address] [place] [address] BILIRUBIN,DIRECTon Bilirubin.indirect [Mass/Vol] 0.1 mg/dL Normal 0.0 - 0.3 [facility] Comment on above: Performed By: #### D BILI #### [address] [id number] CBC AND DIFFERENTIALon 03-05 % AUTOMATED IMMATURE GRAN 0.3 % Normal 0.0 - 0.9 [facility] Comment on above: Result Comment: Cassia ture Granulocyte Count (IG) includes promyelocytes, myelocytes and metamyelocytes but does not include bands. Percent differential counts (%) should be interpreted in the context of the absolute cell counts (cells/L). Performed By: #### C BCDF #### [address] [id number] Basophils (Bld) [#/Vol] 0.02 10*3/uL Normal 0.00 - 0.10 [facility] Comment on above: Performed By: #### C BCDF #### [address] [id number] Basophils/100 WBC (Bld) 0.3 % Normal 0.0 - 2.0 [facility] Comment on above: Performed By: #### C BCDF #### [address] [id number] Eosinophils (Bld) [#/Vol] 0.04 10*3/uL Normal 0.00 - 0.70 [facility] Comment on above: Performed By: #### C BCDF #### [address] [id number] Eosinophils/100 WBC (Bld) 0.6 % Normal 0.0 - 6.0 [facility] Comment on above: Performed By: #### C BCDF #### [address] [id number] Erythrocyte distribution width (RBC) [Ratio] 12.2 % Normal 11.5 - 14.5 [facility] Comment on above: Performed By: #### C BCDF #### [address] [id number] Hematocrit (Bld) [Volume fraction] 38.3 % Normal 36.0 - 46.0 [facility] Comment on above: Performed By: #### C BCDF #### [address] [id number] Hemoglobin (Bld) [Mass/Vol] 12.0 g/dL Normal 12.0 - 16.0 [facility] Comment on above: Performed By: #### C BCDF #### [address] [id number] Lymphocytes (Bld) [#/Vol] 2.33 10*3/uL Normal 1.20 - 4.80 [facility] Comment on above: Performed By: #### C BCDF #### [address] [id number] Lymphocytes/100 WBC (Bld) 35.6 % Normal 13.0 - 44.0 [facility] Comment on above: Performed By: #### C BCDF #### [address] [id number] MCHC (RBC) [Mass/Vol] 31.3 g/dL Low 32.0 - 36.0 [facility] Comment on above: Performed By: #### C BCDF #### [address] [id number] MCV (RBC) [Entitic vol] 93 fL Normal 80 - 100 [facility] Comment on above: Performed By: #### C BCDF #### [address] [id number] Monocytes (Bld) [#/Vol] 0.34 10*3/uL Normal 0.10 - 1.00 [facility] Comment on above: Performed By: #### C BCDF #### [address] [id number] Monocytes/100 WBC (Bld) 5.2 % Normal 2.0 - 10.0 [facility] Comment on above: Performed By: #### C BCDF #### [address] [id number] Neutrophils (Bld) [#/Vol] 3.80 10*3/uL Normal 1.20 - 7.70 [facility] Comment on above: Performed By: #### C BCDF #### [address] [id number] Neutrophils/100 WBC (Bld) 58.0 % Normal 40.0 - 80.0 [facility] Comment on above: Performed By: #### C BCDF #### [address] [id number] Platelets (Bld) [#/Vol] 221 10*3/uL Normal 150 - 450 [facility] Comment on above: Performed By: #### C BCDF #### [address] [id number] RBC 4.13 x10E12/L Normal 4.00 - 5.20 [facility] Comment on above: Performed By: #### C BCDF #### [address] [id number] WBC (Bld) [#/Vol] 6.6 10*3/uL Normal 4.4 - 11.3 [facility] Comment on above: Performed By: #### C BCDF #### [address] [id number] COMPREHENSIVE PANELon 2020 Albumin [Mass/Vol] 3.6 g/dL Normal 3.4 - 5.0 [facility] Comment on above: Performed By: #### C MP #### [address] [id number] ALP [Catalytic activity/Vol] 77 U/L Normal 33 - 110 [facility] Comment on above: Performed By: #### C MP #### [address] [id number] ALT [Catalytic activity/Vol] 20 U/L Normal 7 - 45 [facility] Comment on above: Result Comment: Cony ents treated with Sulfasalazine may generate falsely decreased results for ALT. Performed By: #### C MP #### [address] [id number] Anion gap [Moles/Vol] 10 mmol/L Normal 10 - 20 [facility] Comment on above: Performed By: #### C MP #### [address] [id number] AST [Catalytic activity/Vol] 24 U/L Normal 9 - 39 [facility] Comment on above: Performed By: #### C MP #### [address] [id number] Bilirubin [Mass/Vol] 0.5 mg/dL Normal 0.0 - 1.2 [facility] Comment on above: Performed By: #### C MP #### [address] [id number] Calcium [Mass/Vol] 9.2 mg/dL Normal 8.6 - 10.3 [facility] Comment on above: Performed By: #### C MP #### [address] [id number] Chloride [Moles/Vol] 101 mmol/L Normal 98 - 107 [facility] Comment on above: Performed By: #### C MP #### [address] [id number] Creatinine [Mass/Vol] 0.85 mg/dL Normal 0.50 - 1.05 [facility] Comment on above: Performed By: #### C MP #### [address] [id number] GFR- AM. >60 Normal >60 [facility] Comment on above: Result Comment: CALC ULATIONS OF ESTIMATED GFR ARE PERFORMED USING THE MDRD STUDY EQUATION FOR THE IDMS-TRACEABLE CREATININE METHODS. CLIN CHEM 2007;53:766-72 Performed By: #### C MP #### [address] [id number] GFR-NON AM. >60 Normal >60 [facility] Comment on above: Performed By: #### C MP #### [address] [id number] Glucose [Mass/Vol] 75 mg/dL Normal 74 - 99 [facility] Comment on above: Performed By: #### C MP #### [address] [id number] HCO3 (Bld) [Moles/Vol] 30 mmol/L Normal 21 - 32 [facility] Comment on above: Performed By: #### C MP #### [address] [id number] Potassium [Moles/Vol] 4.1 mmol/L Normal 3.5 - 5.3 [facility] Comment on above: Performed By: #### C MP #### [address] [id number] Protein [Mass/Vol] 7.0 g/dL Normal 6.4 - 8.2 [facility] Comment on above: Performed By: #### C MP #### [address] [id number] Sodium [Moles/Vol] 137 mmol/L Normal 136 - 145 [facility] Comment on above: Performed By: #### C MP #### [address] [id number] Urea nitrogen [Mass/Vol] 21 mg/dL Normal 6 - 23 [facility] Comment on above: Performed By: #### C MP #### [address] [id number] HEPATITIS PANEL,ACUTE (HCFA) on 03-05-2021 HEPATITIS B CORE AB,IGM Non-Reactive Normal NONREACTIVE [facility] Comment on above: Result Comment: Resu lts from patients taking biotin supplements or receiving high-dose biotin therapy should be interpreted with caution due to possible interference with this test. Providers may contact their local laboratory for further information. Performed By: #### H EPA2 #### [facility] [address] [place] [address] HEPATITIS C AB Non-Reactive Normal NONREACTIVE [facility] Comment on above: Result Comment: Resu lts from patients taking biotin supplements or receiving high-dose biotin therapy should be interpreted with caution due to possible interference with this test. Providers may contact their local laboratory for further information. Performed By: #### H EPA2 #### [facility] [address] [place] [id number] HEPATITIS A AB-IGM Non-Reactive Normal NONREACTIVE [facility] Comment on above: Result Comment: Biot in interference may cause falsely decreased results. Patients taking a Biotin dose of up to 5 mg/day should refrain from taking Biotin for 24 hours before sample collection. Providers may contact their local laboratory for further information. Performed By: #### H EPA2 #### [facility] [address] [place] [id number] HEP.B SURFACE AG Non-Reactive Normal NONREACTIVE [facility] Comment on above: Result Comment: Biot in interference may cause falsely decreased results. Patients taking a Biotin dose of up to 5 mg/day should refrain from taking Biotin for 24 hours before sample collection. Providers may contact their local laboratory for further information. Performed By: #### H EPA2 #### [facility] [address] [place] [id number] HIV 1/2 ANTIGEN/ANTIBODY SCR EEN WITH REFLEX TO CONFIRMATIONon 03-05-2021 HIV 1/2 AG/AB SCREEN Non-Reactive Normal NONREACTIVE [facility] Comment on above: Result Comment: HIV [...] load). Performed By: #### H IV #### [facility] [address] [place] [address] SYPHILIS SCREENING WITH REFL EXon 03-05-2021 Lab Specimen Source Normal [facility] Comment on above: Performed By: #### S YPHR #### [facility] [address] [place] [address] Performed By: #### H EPA2 #### [facility] [address] [place] [address] Performed By: #### H IV #### [facility] [address] [place] [id number] HEPATITIS PANEL,ACUTE (HCFA) on 02-29-2020 HEPATITIS A AB-IGM NONREACTIVE Normal NONREACTIVE [facility] Comment on above: Result Comment: Biot in interference may cause falsely decreased results. Patients taking a Biotin dose of up to 5 mg/day should refrain from taking Biotin for 24 hours before sample collection. Providers may contact their local laboratory for further information. Performed By: #### H EPA2 #### [facility] [address] [place] [id number] HEPATITIS C AB NONREACTIVE Normal NONREACTIVE [facility] Comment on above: Result Comment: Resu lts from patients taking biotin supplements or receiving high-dose biotin therapy should be interpreted with caution due to possible interference with this test. Providers may contact their local laboratory for further information. Performed By: #### H EPA2 #### [facility] [address] [place] [id number] HEPATITIS B CORE AB,IGM NONREACTIVE Normal NONREACTIVE [facility] Comment on above: Result Comment: Resu lts from patients taking biotin supplements or receiving high-dose biotin therapy should be interpreted with caution due to possible interference with this test. Providers may contact their local laboratory for further information. Performed By: #### H EPA2 #### [facility] [address] [place] [id number] HEP.B SURFACE AG NONREACTIVE Normal NONREACTIVE [facility] Comment on above: Result Comment: Biot in interference may cause falsely decreased results. Patients taking a Biotin dose of up to 5 mg/day should refrain from taking Biotin for 24 hours before sample collection. Providers may contact their local laboratory for further information. Performed By: #### H EPA2 #### [facility] [address] [place] [id number] HIV ANTIGEN/ANTIBODY SCREENo n 02-29-2020 HIV AG/AB SCREEN NONREACTIVE Normal NONREACTIVE [facility] Comment on above: Result Comment: HIV Ag/Ab screen is performed using the Siemens ideasoft HIV Ag/Ab Combo assay which detects the presence of HIV p24 antigen as well as antibodies to HIV-1 (Group M and O) and HIV-2. Performed By: #### H IV #### [facility] [address] [place] [address] SYPHILIS SCREENING WITH REFL EXon 02-29-2020 SYPHILIS TOTAL AB NONREACTIVE Normal NONREACTIVE [facility] Comment on above: Result Comment: No s ignificant level of Treponema pallidum antibody detected. Repeat testing in 2 to 4 weeks may be considered if early infection or incubating syphilis infection is suspected. Performed By: #### S YPHR #### [facility] [address] [place] [address] BILIRUBIN,DIRECTon 0 Bilirubin.direct [Mass/Vol] 0.1 mg/dL Normal 0.0 - 0.3 [facility] Comment on above: Performed By: #### D BILI #### [address] [id number] CBCon 02-28-2020 Erythrocyte distribution width (RBC) [Ratio] 12.6 % Normal 11.5 - 14.5 [facility] Comment on above: Performed By: #### C BC #### [address] [id number] Hematocrit (Bld) [Volume fraction] 38.4 % Normal 36.0 - 46.0 [facility] Comment on above: Performed By: #### C BC #### [address] [id number] Hemoglobin (Bld) [Mass/Vol] 12.5 g/dL Normal 12.0 - 16.0 [facility] Comment on above: Performed By: #### C BC #### [address] [id number] MCHC (RBC) [Mass/Vol] 32.6 g/dL Normal 32.0 - 36.0 [facility] Comment on above: Performed By: #### C BC #### [address] [id number] MCV (RBC) [Entitic vol] 88 fL Normal 80 - 100 [facility] Comment on above: Performed By: #### C BC #### [address] [id number] Platelets (Bld) [#/Vol] 350 10*3/uL Normal 150 - 450 [facility] Comment on above: Performed By: #### C BC #### [address] [id number] RBC (Bld) [#/Vol] 4.34 x10E12/L Normal 4.00 - 5.20 [facility] Comment on above: Performed By: #### C BC #### [address] [id number] WBC (Bld) [#/Vol] 5.6 10*3/uL Normal 4.4 - 11.3 [facility] Comment on above: Performed By: #### C BC #### [address] [id number] COMPREHENSIVE PANELon 2019 Albumin [Mass/Vol] 4.1 g/dL Normal 3.4 - 5.0 [facility] Comment on above: Performed By: #### C MP #### [address] [id number] ALP [Catalytic activity/Vol] 105 U/L Normal 33 - 110 [facility] Comment on above: Performed By: #### C MP #### [address] [id number] ALT [Catalytic activity/Vol] 24 U/L Normal 7 - 45 [facility] Comment on above: Result Comment: Cony ents treated with Sulfasalazine may generate falsely decreased results for ALT. Performed By: #### C MP #### [address] [id number] Anion gap [Moles/Vol] 10 mmol/L Normal 10 - 20 [facility] Comment on above: Performed By: #### C MP #### [address] [id number] AST [Catalytic activity/Vol] 22 U/L Normal 9 - 39 [facility] Comment on above: Performed By: #### C MP #### [address] [id number] Bilirubin [Mass/Vol] 0.4 mg/dL Normal 0.0 - 1.2 [facility] Comment on above: Performed By: #### C MP #### [address] [id number] Calcium [Mass/Vol] 9.1 mg/dL Normal 8.6 - 10.3 [facility] Comment on above: Performed By: #### C MP #### [address] [id number] Chloride [Moles/Vol] 101 mmol/L Normal 98 - 107 [facility] Comment on above: Performed By: #### C MP #### [address] [id number] Creatinine [Mass/Vol] 0.79 mg/dL Normal 0.50 - 1.05 [facility] Comment on above: Performed By: #### C MP #### [address] [id number] GFR- AM. >60 Normal >60 [facility] Comment on above: Result Comment: CALC ULATIONS OF ESTIMATED GFR ARE PERFORMED USING THE MDRD STUDY EQUATION FOR THE IDMS-TRACEABLE CREATININE METHODS. CLIN CHEM 2007;53:766-72 Performed By: #### C MP #### [address] [id number] GFR-NON AM. >60 Normal >60 [facility] Comment on above: Performed By: #### C MP #### [address] [id number] Glucose [Mass/Vol] 90 mg/dL Normal 74 - 99 [facility] Comment on above: Performed By: #### C MP #### [address] [id number] HCO3 (Bld) [Moles/Vol] 28 mmol/L Normal 21 - 32 [facility] Comment on above: Performed By: #### C MP #### [address] [id number] Potassium [Moles/Vol] 4.4 mmol/L Normal 3.5 - 5.3 [facility] Comment on above: Performed By: #### C MP #### [address] [id number] Protein [Mass/Vol] 8.1 g/dL Normal 6.4 - 8.2 [facility] Comment on above: Performed By: #### C MP #### [address] [id number] Sodium [Moles/Vol] 135 mmol/L Low 136 - 145 [facility] Comment on above: Performed By: #### C MP #### [address] [id number] Urea nitrogen [Mass/Vol] 21 mg/dL Normal 6 - 23 [facility] Comment on above: Performed By: #### C MP #### [address] [id number] SYPHILIS SCREENING WITH REFL EXon 02-28-2020 Lab Specimen Source Normal [facility] Comment on above: Performed By: #### S YPHR #### [facility] [address] [place] [address] Performed By: #### H IV #### [facility] [address] [place] [address] Performed By: #### H EPA2 #### [facility] [address] [place] [address] APTTon 08-13-2017 aPTT 27.9 s Normal 23.2-34.4 [facility] Comment on above: Result Comment: Perf ormed at [place] [address] [place] [address] [phone] Performed By: #### C DP, PT, PTT, BNP, BMP, TROPI ####[address] [place] [address] Basic Metabolic Profon 08-13 (cont.) Normal [facility] Comment on above: Result Comment: Aver age GFR for 30-39 years old: 107 mL/min/1.73sq mChronic Kidney Disease: <60 mL/min/1.73sq mKidney failure: <15 mL/min/1.73sq meGFR calculated using average adult body mass. Additional eGFR calculator available at:http://www.[employer]/multiple_crcl_2012.htm Performed By: #### C DP, PT, PTT, BNP, BMP, TROPI ####[address] [place] [address] Anion gap 11 mmol/L Normal 9-17 [facility] Comment on above: Performed By: #### C DP, PT, PTT, BNP, BMP, TROPI ####[address] [place] [address] BUN/CRE Ratio 21 High 9-20 [facility] Comment on above: Performed By: #### C DP, PT, PTT, BNP, BMP, TROPI ####[address] [place] [address] Calcium 9.6 mg/dL Normal 8.6-10.4 [facility] Comment on above: Performed By: #### C DP, PT, PTT, BNP, BMP, TROPI ####[address] [place] [address] Chloride 96 mmol/L Low 98-107 [facility] Comment on above: Performed By: #### C DP, PT, PTT, BNP, BMP, TROPI ####[address] [place] [address] CO2 31 mmol/L Normal 20-31 [facility] Comment on above: Performed By: #### C DP, PT, PTT, BNP, BMP, TROPI ####[address] [place] [address] Creatinine 0.73 mg/dL Normal 0.50-0.90 [facility] Comment on above: Performed By: #### C DP, PT, PTT, BNP, BMP, TROPI ####[address] [place] [address] eGFR (non-black) mL/min/{1.73_m2} Normal >60 [facility] Comment on above: Performed By: #### C DP, PT, PTT, BNP, BMP, TROPI ####[address] [place] [address] Glucose mass conc 101 mg/dL High 70-99 [facility] Comment on above: Performed By: #### C DP, PT, PTT, BNP, BMP, TROPI ####[address] [place] [address] Potassium molar conc 3.2 mmol/L Low 3.7-5.3 [facility] Comment on above: Performed By: #### C DP, PT, PTT, BNP, BMP, TROPI ####[address] [place] [address] Sodium 138 mmol/L Normal 135-144 [facility] Comment on above: Performed By: #### C DP, PT, PTT, BNP, BMP, TROPI ####[address] [place] [address] Staging: Normal [facility] Comment on above: Result Comment: Stag e 1: Some kidney damage normal GFRStage 2: Mild kidney damage GFR 60-89Stage 3: Moderate kidney damage GFR 30-59Stage 4: Severe kidney damage GFR 15-29Stage 5: Severe kidney damage GFR <15ESRD - chronic treatment by dialysis or transplantPerformed at [address] [place] [address] Performed By: #### C DP, PT, PTT, BNP, BMP, TROPI ####[address] [place] [address] Urea nitrogen 15 mg/dL Normal 6-20 [facility] Comment on above: Performed By: #### C DP, PT, PTT, BNP, BMP, TROPI ####[address] [place] [address] Brain Natri. Peptideon 08-13 BNP pg/mL Normal <300 [facility] Comment on above: Result Comment: Pro- BNP results cannot be compared to BNP results. Performed By: #### C DP, PT, PTT, BNP, BMP, TROPI ####[address] [place] [address] BNP Normal [facility] Comment on above: Result Comment: Pro- BNP Reference Range:Rule Out: <300G[place]: Age <50 300-450 Age 50-75 300-900 Age >75 300-1800Usually represents mild to moderate HF but other cardiopulmonary causes cannot be ruled out.Rule In: Age <50 >450 Age 50-75 >900 Age >75 >1800Performed at [address] [place] [address] Performed By: #### C DP, PT, PTT, BNP, BMP, TROPI ####[address] [place] [address] CBC with Diffon 08-13-2017 Abs. Basophil 0.00 k/uL Normal 0.0-0.2 [facility] Comment on above: Result Comment: Perf ormed at [address] [place] [address] Performed By: #### C DP, PT, PTT, BNP, BMP, TROPI ####[address] [place] [address] Abs.Neutrophil (Seg) 4.50 k/uL Normal 1.8-7.7 [facility] Comment on above: Performed By: #### C DP, PT, PTT, BNP, BMP, TROPI ####[address] , [facility]83 Basophils/100 WBC Auto (Bld) 0 % Normal 0-2 [facility] Comment on above: Performed By: #### C DP, PT, PTT, BNP, BMP, TROPI ####[address] , [facility]83 Eosinophils 0.20 10*3/uL Normal 0.0-0.4 [facility] [facility] Comment on above: Performed By: #### C DP, PT, PTT, BNP, BMP, TROPI ####[address] , [place] [address] Eosinophils/100 leukocytes 2 % Normal 0-8 [facility] Comment on above: Performed By: #### C DP, PT, PTT, BNP, BMP, TROPI ####[address] , [facility]83 Erythrocyte distribution width Auto Ratio (RBC) 15.0 % Normal 12.1-15.2 [facility] Comment on above: Performed By: #### C DP, PT, PTT, BNP, BMP, TROPI ####[address] [place] [address] Erythrocytes (RBC) 4.75 10*6/uL Normal 4.0-5.2 [facility] Comment on above: Performed By: #### C DP, PT, PTT, BNP, BMP, TROPI ####[address] , [facility]83 Hematocrit (HCT) 41.0 % Normal 36-[address] [facility] Comment on above: Performed By: #### C DP, PT, PTT, BNP, BMP, TROPI ####[address] , [facility]83 Hemoglobin mass conc (Bld) 13.7 g/dL Normal 12.0-16.0 [facility] Comment on above: Performed By: #### C DP, PT, PTT, BNP, BMP, TROPI ####[address] [place] [address] Lymphocytes 2.60 10*3/uL Normal 1.0-4.8 [facility] Comment on above: Performed By: #### C DP, PT, PTT, BNP, BMP, TROPI ####[address] [place] [address] Lymphocytes/100 leukocytes 34 % Normal 24-44 [facility] Comment on above: Performed By: #### C DP, PT, PTT, BNP, BMP, TROPI ####[address] [place] [address] MCH 28.8 pg Normal 26-34 [facility] Comment on above: Performed By: #### C DP, PT, PTT, BNP, BMP, TROPI ####[address] [place] [address] MCHC mass conc (RBC) 33.4 g/dL Normal 31-37 [facility] Comment on above: Performed By: #### C DP, PT, PTT, BNP, BMP, TROPI ####[address] [place] [address] MCV 86.3 fL Normal 80-100 [facility] Comment on above: Performed By: #### C DP, PT, PTT, BNP, BMP, TROPI ####[address] [place] [address] Monocytes 0.40 10*3/uL Normal 0.0-1.0 [facility] Comment on above: Performed By: #### C DP, PT, PTT, BNP, BMP, TROPI ####[address] [place] [address] Monocytes/100 leukocytes 6 % Normal 0-12 [facility] Comment on above: Performed By: #### C DP, PT, PTT, BNP, BMP, TROPI ####[address] [place] [address] Neutrophil (Seg) 58 % Normal 36-[address] [facility] Comment on above: Performed By: #### C DP, PT, PTT, BNP, BMP, TROPI ####[address] [place] [address] Platelet mean volume (PMV) 6.7 fL Normal 6.0-12.0 [facility] Comment on above: Performed By: #### C DP, PT, PTT, BNP, BMP, TROPI ####[address] [place] [address] Platelets 322 10*3/uL Normal 140-450 [facility] Comment on above: Performed By: #### C DP, PT, PTT, BNP, BMP, TROPI ####[address] [place] [address] WBC (Leukocytes) 7.7 10*3/uL Normal 3.5-11.0 [facility] Comment on above: Performed By: #### C DP, PT, PTT, BNP, BMP, TROPI ####[address] [place] [address] Auto Diff Performed NOT REPORTED Normal [facility] Comment on above: Performed By: #### C DP, PT, PTT, BNP, BMP, TROPI ####[address] [place] [address] Erythrocyte morphology NOT REPORTED Normal [facility] Comment on above: Performed By: #### C DP, PT, PTT, BNP, BMP, TROPI ####[address] [place] [address] Erythrocytes (RBC) NOT REPORTED Normal [facility] Comment on above: Performed By: #### C DP, PT, PTT, BNP, BMP, TROPI ####[address] [place] [address] Granulocytes/100 WBC (Bld) NOT REPORTED Normal 0.00-0.30 [facility] Comment on above: Performed By: #### C DP, PT, PTT, BNP, BMP, TROPI ####[address] [place] [address] Immature granulocytes #/vol (Bld) NOT REPORTED Normal 0 [facility] Comment on above: Performed By: #### C DP, PT, PTT, BNP, BMP, TROPI ####[address] [place] [address] Platelets NOT REPORTED Normal [facility] Comment on above: Performed By: #### C DP, PT, PTT, BNP, BMP, TROPI ####[address] [place] [address] WBC Morphology NOT REPORTED Normal [facility] Comment on above: Performed By: #### C DP, PT, PTT, BNP, BMP, TROPI ####[address] [place] [address] ED Provider Noteon 8 HIM IP Note OR Storage Battery Inspector And Tester Normal [facility] PTon 08-13-2017 INR Coag RelTime (PPP) 0.9 {INR} Normal 0.9-1.2 [facility] Comment on above: Result Comment: Perf ormed at [address] [place] [address] Performed By: #### C DP, PT, PTT, BNP, BMP, TROPI ####[address] [place] [address] Prothrombin time (PT) Coag time (PPP) 9.7 s Normal 9.7-12.2 [facility] Comment on above: Performed By: #### C DP, PT, PTT, BNP, BMP, TROPI ####[address] [place] [address] Troponinon 08-13-2017 Troponin I.cardiac mass conc Normal [facility] Comment on above: Result Comment: Refe rence Range: <0.03 Within reference range. 0.03-0.09 Possible myocardial damage.Repeat at appropriate intervals to rule out chronic elevation. >= 0.10 Indicative of myocardial damage.Patients with high levels of Biotin oral intake (i.e >5mg/day) may have falsely decreased Troponin T levels. Samples collected within 8 hours of biotin intake may require additional information for diagnosis.Performed at [address] [place] [address] Performed By: #### C DP, PT, PTT, BNP, BMP, TROPI ####[address] [place] [address] Troponin T.cardiac mass conc ug/L Normal <0.03 [facility] Comment on above: Result Comment: Trop onin T results cannot be compared to Troponin-I results. Performed By: #### C DP, PT, PTT, BNP, BMP, TROPI ####[address] [place] [address] XR CHEST PORTABLEon 08-13-19 18 XR CHEST [...] by:RACHEL Haskinsigned by:Sruthi Mo MD08/13/17inal result Normal [facility] Vital Signs Date Time Vital Sign Value Performing Clinician Facility 02-03-2022 10:50-0400 Body height 154.9 cm Chas Romero DO Work Phone: [facility] 02-03-2022 10:50-0400 Body weight 122.7 kg Chas Romero DO Work Phone: [facility] 02-03-2022 10:50-0400 Diastolic blood pressure 84 mm[Hg] Chas Romero DO Work Phone: [facility] 02-03-2022 10:50-0400 Heart rate 66 /min Chas Romero DO Work Phone: [facility] 02-03-2022 10:50-0400 SaO2% (BldA) [Mass fraction] 98 % Chas Romero DO Work Phone: [facility] 02-03-2022 10:50-0400 Systolic blood pressure 117 mm[Hg] Chas Romero DO Work Phone: [facility] 01-01-2022 11:45-0400 Body height 155.57 cm Rolando Miracle Other [employer] Other 01-01-2022 11:45-0400 Body mass index (BMI) [Ratio] 42.12 kg/m2 Rolando Miracle Other [employer] Other 01-01-2022 11:45-0400 Body weight 101.97 kg Rolando Miracle Other [employer] Other 11-13-2021 10:45-0400 Body height 155.57 cm Rolando Miracle Other [employer] Other 11-13-2021 10:45-0400 Body mass index (BMI) [Ratio] 42.12 kg/m2 Rolando Miracle Other [employer] Other 11-13-2021 10:45-0400 Body weight 101.97 kg Rolando Miracle Other [employer] Other 11-12-2021 13:49-0400 Body height 154.9 cm Chas Romero DO Work Phone: [facility] 11-12-2021 13:49-0400 Body weight 118.62 kg Chas Romero DO Work Phone: [facility] 11-12-2021 13:49-0400 Diastolic blood pressure 82 mm[Hg] Chas Romero DO Work Phone: [facility] 11-12-2021 13:49-0400 Heart rate 69 /min Chas Romero DO Work Phone: [facility] 11-12-2021 13:49-0400 SaO2% (BldA) [Mass fraction] 100 % Chas Romero DO Work Phone: [facility] 11-12-2021 13:49-0400 Systolic blood pressure 120 mm[Hg] Chas Romero DO Work Phone: [facility] 09-18-2021 11:15-0400 Body height 155.57 cm Rolando Turner Other [employer] Other 09-18-2021 11:15-0400 Body mass index (BMI) [Ratio] 42.12 kg/m2 Rolando Turner Other [employer] Other 09-18-2021 11:15-0400 Body weight 101.97 kg Rolando Turner Other [employer] Other 07-24-2021 11:15-0500 Body height 155.57 cm Rolando Turner Other [employer] Other 07-24-2021 11:15-0500 Body mass index (BMI) [Ratio] 47.03 kg/m2 Rolando Turner Other [employer] Other 07-24-2021 11:15-0500 Body weight 113.85 kg Rolando Turner Other [employer] Other 06-12-2021 11:00-0500 Body height 155.57 cm Rolando Miracle Other [employer] Other 06-12-2021 11:00-0500 Body mass index (BMI) [Ratio] 46.85 kg/m2 Rolando Miracle Other [employer] Other 06-12-2021 11:00-0500 Body weight 113.4 kg Rolando Miracle Other [employer] Other 05-15-2021 14:00-0500 Body height 155.57 cm Rolando Miracle Other [employer] Other 05-15-2021 14:00-0500 Body mass index (BMI) [Ratio] 42.12 kg/m2 Rolando Miracle Other [employer] Other 05-15-2021 14:00-0500 Body weight 101.97 kg Rolando Miracle Other [employer] Other 04-17-2021 10:30-0400 Body height 155.57 cm Rolando Miracle Other [employer] Other 04-17-2021 10:30-0400 Body mass index (BMI) [Ratio] 42.12 kg/m2 Rolando Miracle Other [employer] Other 04-17-2021 10:30-0400 Body weight 101.97 kg Rolando Miracle Other [employer] Other Encounters Encounter Date Encounter Type Care Provider Facility Start: 07-16-2023 ambulatory Luiz Garsia acility:[facility] Start: 07-13-2023 End: 07-14-2023 ambulatory Fabián Archer MD Facility:[facility] Start: 06-15-2023 End: 06-16-2023 ambulatory Fabián Archer MD Facility:[facility] Start: 04-27-2023 End: 04-28-2023 ambulatory Fabián Archer MD Facility:[facility] Start: 03-04-2023 ambulatory [facility] Start: 02-23-2023 ambulatory [facility] Start: 01-12-2023 ambulatory [facility] Start: 01-01-2023 End: 01-01-2023 ambulatory [facility] Start: 12-01-2022 ambulatory [facility] Start: 09-29-2022 ambulatory [facility] Start: 09-15-2022 ambulatory [facility] Start: 09-15-2022 Encounter for other preprocedural examination [facility] Start: 08-22-2022 End: 08-23-[address] SMILEY URIAS . Facility:[facility] Start: 08-21-2022 ambulatory CAROLE PONCE [facility] Start: 08-06-2022 ambulatory [facility] Start: 07-02-2022 ambulatory PASCUAL [facility] Start: 05-15-2022 End: 05-15-2022 ambulatory [facility] Start: 05-12-2022 End: 05-13-2022 ambulatory [facility] Start: 05-05-2022 End: 05-06-2022 ambulatory [facility] Start: 04-30-2022 ambulatory PASCUAL [facility] Start: 04-18-2022 End: 04-19-[address] SMILEY URIAS . Facility:[facility] Start: 04-17-2022 ambulatory [facility] Start: 04-03-2022 End: 04-03-2022 ambulatory RUFINO EMJOSIAS [facility] Start: 04-01-2022 End: 04-01-2022 ambulatory [facility] Start: 03-06-2022 ambulatory SMILEY URIAS Facility:[facility] Start: 02-03-2022 End: 02-03-2022 ambulatory SMILEY URIAS Facility:[facility] Start: 02-03-2022 End: 02-03-2022 Patient encounter [...] 01-23-2022 End: 01-23-2022 ambulatory SMILEY URIAS Facility:[facility] Start: 01-23-2022 End: 01-23-2022 ambulatory Emg 400) Work Phone: Neurology Comment on above: EMG Start: 01-23-2022 End: 01-23-2022 Patient encounter procedure Emg 2 Neur Rej (Max Weight: 400) Work Phone: ANDREA SAUCEDA [facility] Start: 01-22-2022 End: 01-23-[address] SMILEY URIAS . Facility:[facility] Start: 01-13-2022 End: 01-14-2022 ambulatory NUZHAT ARZOLA Facility:[facility] Start: 01-01-2022 End: 01-01-2022 ambulatory Rolando Turner Other [employer] Other Start: 01-01-2022 Office outpatient vi sit 15 minutes Rolando Turner [facility] Start: 12-06-2021 Telephone encounter Chas laws DO Work Phone: Neurology Comment on above: Insurance Authorizat ion Start: 11-13-2021 End: 11-13-2021 ambulatory Rolando Turner Other [employer] Other Start: 11-13-2021 Office outpatient vi sit 15 minutes Rolando Turner [facility] Start: 11-12-2021 End: 11-12-2021 ambulatory CHAS ROMERO Facility:[facility] Start: 11-12-2021 End: 11-12-2021 Patient encounter procedure Chas Romero DO Work Phone: Neurology Comment on above: Right leg weakness ( Primary Dx) Start: 10-22-2021 Telephone encounter Chas laws DO Work Phone: Neurology Comment on above: Received Outside [facility] [employer] [facility] Start: 10-02-2021 End: 10-16-[address] SMILEY URIAS . Facility: Start: 09-30-2021 End: 09-30-2021 ambulatory Rolando Turner Other [employer] Other Start: 09-30-2021 Telephone encounter Rolando Turner [facility] Start: 09-24-2021 End: 09-26-2021 ambulatory UNKNOWN PROVIDER Facility:[facility] Start: 09-18-2021 End: 09-18-2021 ambulatory Rolando Turner Other [employer] Other Start: 09-18-2021 Office outpatient vi sit 15 minutes Rolando Turner [facility] Start: 09-06-2021 End: 09-07-2021 ambulatory [facility]ST Facility: Start: 07-24-2021 End: 07-24-2021 ambulatory Rolando Turner Other [employer] Other Start: 07-24-2021 Office outpatient vi sit 15 minutes Rolando Turner [facility] Start: 06-12-2021 End: 06-12-2021 ambulatory Rolando Turner Other [employer] Other Start: 06-12-2021 Office outpatient vi sit 15 minutes Rolando Turner [facility] Start: 05-15-2021 End: 05-15-2021 ambulatory Rolando Turner Other [employer] Other Start: 05-15-2021 Office outpatient vi sit 15 minutes Rolando Turner [facility] Start: 04-17-2021 Office outpatient ne w 45 minutes Rolando Turner [facility] Start: 08-13-2017 End: 08-13-2017 Emergency department patient visit E[facility]ON V[facility] Procedures Date Procedure Procedure Detail Performing Clinician Start: 01-23-2022 Nerve conduction rosa dies 5-6 studies Chas Romero DO Work Phone: Start: 08-13-2017 Radiologic exam ches t single view [facility] Start: 08-13-2017 APTT E[facility] ZAMAN Start: 08-13-2017 BASIC METABOLIC PANEL Vilma JOHNSON BAKARI Start: 08-13-2017 BRAIN NATRIURETIC PEPTIDE [place] Start: 08-13-2017 CBC WITH AUTO DIFFERENTIAL [facility] [facility] Start: 08-13-2017 PROTIME-INR [facility] Start: 08-13-2017 TROPONIN [facility] Start: 08-13-2017 EKG 12-LEAD [facility] Start: 08-13-2017 INSERT PERIPHERAL IV FL CODY [facility]LEGAS Start: 08-13-2017 TELEMETRY MONITORING FL [facility] Start: 08-13-2017 VITAL SIGNS [facility] Z[facility] Plan of Treatment Date Care Activity Detail Author Start: 02-27-2022 Influenza vaccination C [facility] Start: 09-01-2015 HPV TESTING HPV TESTING [facility] Start: 2006 PAP TESTING PAP TESTING [facility] Start: 2004 Urine microalbumin profile DTAP,TDAP,TD (1 - Tdap) [facility] Start: 09-01-2003 ANNUAL PCP TEAM EMS HELICOPTER PILOT CAIN DISEASE VISIT ANNUAL PCP TEAM CHRONIC DISEASE VISIT [facility] Start: 09-01-2003 BP CONTROLLED (<130/80) BP CON TROLLED (<130/80) [facility] Start: 09-01-2003 HEPATITIS C SCREENING HEPATITIS C SC ALAINANETTA [facility] Start: 09-01-2003 HIV SCREENING HIV SCREENING [facility] Start: 1997 Adult depression screening assessment DEPRESSION SCREENING [facility] Start: 1990 COVID-19 VACCINE (#1) COVID-19 VACCI NE (#1) [facility] Start: 1990 COVID-19 VACCINE (1) COVID-19 VACCIN E (1) [facility] Start: 03-03-1986 COVID-19 VACCINE (#1) COVID-19 VACCI NE (#1) [facility] Start: 1985 HEPATITIS B (1 of 3 - 3-dose series) HEPATITIS B (1 of 3 - 3-dose series) [facility] End: 11-12-2022 EMG(NEURO/NI) EMG(NEURO/NI) EMG Routine Right leg weakness 1 Occurrences starting 11/12/2021 until 11/12/2022 [facility] Work Phone: Comment on above: 1 Occurrences starti ng 11/12/2021 until 11/12/2022 [facility] Payers Date Payer Category Payer Self-pay 2022 Medicaid [id number] 2021 Unknown [facility] [id number] 2021-Present [phone] [place] [address] [facility] [id number] 2021 Unknown [id number] 2021 Unknown [id number] 2021 Worker's Compensation [id number] 2021 Worker's Compensation 2020 Medicaid [employer] 2020-Present [phone] [address] [place] [address] Medicaid 2020 Medicaid [employer] [id number] 2020-Present [phone] [address] [place] [address] Medicaid [id number] 2014 Unknown [id number] 1985 Unknown [id number] 32 1985 Unknown [id number] 2.16.840.1.531169.3.579.2.6 47 1985 Unknown [id number] 2.16.840.1.999120.3.579.2.5 93 1985 Unknown [id number] 2.16.840.1.905890.3.579.2.5 93 1985 Unknown [id number] 2.16.840.1.676055.3.579.2.5 93 1985 Unknown [id number] 2.16.840.1.373731.3.579.2.5 93 1985 Unknown [id number] 2.16.840.1.729062.3.579.2.5 93 1985 Unknown [id number] 2.16.840.1.913141.3.579.2.5 93 1985 Unknown [id number] 2.16.840.1.747390.3.579.2.5 93 1985 Unknown [id number] 2.16.840.1.029078.3.579.2.5 93 1985 Unknown [id number] 2.16.840.1.131775.3.579.2.1 96 1985 Unknown [id number] [id number] 96 1985 Unknown [id number] [id number] 96 1959 Medicaid [id number] 1959 Unknown [id number] [id number] Unknown [id number] 31 Social History Date Type Detail Facility Start: 09-29-2014 Tobacco smoking stat us SCIS Smokes tobacco daily [facility] End: 08-15-2019 History of tobacco use Cigarette Smoker [facility] Start: 09-29-2014 End: 02-03-2022 Cigarettes smoked current (pack per day) - Reported 0.5 [facility] Start: 09-29-2014 End: 02-03-2022 Tobacco use and exposure Smokeless tobacco non-user [facility] Start: 03-02-2015 End: 02-03-2022 Alcohol intake Current non-drinker of alcohol (finding) [facility] Start: 1985 Sex Assigned At Not on file C [facility] Start: 11-12-2021 End: 02-03-2022 Tobacco smoking status SCIS Ex-smoker [facility] End: 08-15-2019 History of tobacco use Current smoker [facility] Start: 11-02-2021 End: 02-03-2022 Exposure to SARS-CoV-2 (event) Not sure [facility] Sex Assigned At Sex Assigned At [facility] [employer] Other Clinical Notes 04-03-2021 to 03-04-2023 Chas [...] 1 month she will likely be at [facility] and then will be released for work either with permanent restrictions or unrestricted depending upon how she feels. She has exhausted conservative care at this point. This patient was seen and examined in the presence of Dr. Cesar Escalante resident in physical medicine and rehabilitation. [facility] 02-23-2023 Note Attestation signed by [...] improve Chinedu Palacios MD Orthopedic Surgery, PGY-4 [facility] Pager: [phone] 02/23/23 2:00 PM This note was created [...] be an additional personal documentation from me. [facility] 01-12-2023 Note Attestation signed by [...] be an additional personal documentation from me. [facility] 01-02-2023 Note I called and spoke t o the patient for a discharge follow up call following her procedure. The patient is doing well at home. She is taking ASA per orders. She denies any issues with her surgical dressing. I confirmed with the patient that she has a follow up appointment with Dr. Holley. [facility] 01-01-2023 Note Patient: Nabila cohn Procedure Summary Date: 01/01/23 Room / Location: [address] OR Anesthesia Start: 09 Anesthesia Stop: 953 Procedures: KNEE ARTHROSCOPY WITH [...] no known notable events for this encounter. [facility] 01-01-2023 Note Airway Date/Time: 01/01/2023 9:16 AM Urgency: elective Airway not difficult General Information and Staff Patient location during procedure: OR Anesthesiologist: Han Aguiar MD Resident/QA SOFTWARE TESTER/CAA: TANO Bonner Performed: other anesthesia staff Learner [...] 1 Number of other approaches attempted: 0 [facility] 01-01-2023 Note Patient: Nabila cohn Procedure Information Date/Time: 01/01/23929 Procedures: KNEE ARTHROSCOPY WITH (Left: Knee) SAUCERIZATION OF DISCOID MENISCUS AND CHONDROPLASTY OF TROCHLEA (Left: Knee) Location: [facility] OR / [facility] OR Surgeons: Jenny Holley MD Echo complete W/O contrast Order: [id number] Narrative ?Left Ventricle: Systolic function is normal [...] 09:51 Last Resulted: 07/12/19 12:35 Received From: [facility] Result Received: 03/31/22 20:06 View Encounter ??? 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 Additional Equipment Requests [facility] 12-09-2022 Note Called to confirm ap pointment with dietitian scheduled for 12/10; pt request to cancel appointment at this time. [facility] 12-01-2022 Note Attestation signed by [...] a 37 y.o. female who presents to [facility] today for [facility] post-concussion syndrome follow up HPI: Patient [...] by mouth in (more content not included)... [facility] 09-29-2022 Note Attestation signed by [...] Medication refill was given Erika Damon, MS3 [facility] 09-15-2022 Note Orthopedic Surgery Subjective Chief complaint: Chief Complaint Patient presents with Left Knee - Pain 09/15/22 Nabila Jewell is a 37 year old female who presents for follow up evaluation of her left knee. The pain is unchanged and she would like to undergo surgery. 08/22/2022: Conservative measures have not provided parts counterman relief, seen today with complaints of left knee pain. PT, medications and CSI have not provided halfway relief. 07/02/22 steroid injection at previous visit [...] -Patient reports conservative measures are not providing halfway relief for left knee pain. She would like to undergo surgical repair - Consent for left knee arthroscopy has been obtained -Plan L knee chondroplasty trochlea and partial lateral meniscectomy [facility] 08-21-2022 Note Orthopedic Surgery Subjective Chief complaint: Chief Complaint Patient presents with Left Knee - Pain 08/22/22 Conservative measures have not provided parts counterman relief, seen today with complaints of left knee pain. PT, medications and CSI have not provided parts counterman relief. 07/02/22 steroid injection at previous visit [...] knee was brought in from [facility] on a CD disc that was personally [...] -Patient reports conservative measures are not providing halfway relief in regard to her left knee. Refer to Dr Holley for opinion. [facility] 08-06-2022 Note Adult Nutrition Asse [...] Needs: Needs based on: IBW Calorie Needs: 9171-5553 kcal/day (25-30 kcal/kg) Protein Needs: 65 g/day [...] to 2000 mg/day -Wt loss 1-2 lb/wk Concrete Handler Goals: -Wt loss 10% Pt scheduled follow-up appointment with RD for December 10 @ 11 am. Encouraged pt to check with insurance for coverage prior to appointment. Time Spent With Pt: 10:00 - 11:30 am [facility] 07-31-2022 Note Called pt to confirm appointment with RD on 08/06/22. She is interested in attending appointment - fax sent to primary care physician (Dr. Urias) and requested for referral with nutrition related diagnosis. [facility] 07-02-2022 Note Subjective Patient ID: Nabila Jewell is a 36 y.o. female. Headache Leg Pain this patient is a 36-year-old female who sustained a work-related head injury. She continues with postconcussive syndrome. At her last visit we did start her on nabumetone been helping her headaches. They lessen the intensity. She continues with physical therapy here at [facility]. She has not yet been returning to [...] Additional Comments: Seen on medical student today [facility] 05-15-2022 Note Attestation signed by [...] knee was brought in from [facility] on a CD disc that was personally [...] is a small joint effusion noted. Assessment/Plan Nablia Jewell is a 36 y.o. year old female with Left medial femoral chondromalacia -Physical Therapy - quad strengthen -Mobic -Patient return to clinic in 6 weeks for repeat clinical evaluation Sixto Durham MD PGY-4 Orthopedic Surgery [facility] [place] By using the attestations below, the signing [...] be an additional personal documentation from me. [facility] 04-30-2022 Note ASSESSMENT/PLAN: Nabila was [...] a 36 y.o. female who presents to [facility] [place] [facility] today for Workers Compensation Follow [...] strength 5/5, R (more content not included)... [facility] 04-30-2022 Note I saw and evaluated the patient, participating in the mc portions of the service. I reviewed the resident???s note. I agree with the resident???s findings and plan. Pascual Uribe MD [facility] 04-17-2022 Note Attestation signed by Marisa Carter PhD at 04/17/2022 7:11 PM I supervised all aspects of this evaluation. [facility] - NEUROPSYCHOLOGY [facility] [place] [address] Ms. Nabila Jewell was seen via [employer] and then Telephone to discuss the neuropsychological evaluation. We discussed the results, their implications, applicable diagnoses, and recommendations. All questions were answered. At this time, she is discharged from the Neuropsychology service. A copy of these results will be available to her via [facility] [employer] or through contacting the Dept. of Health Information Management ([facility]) at [phone]. Contact the Neuropsychology Clinic at [phone] with questions. Linda Scott, PhD Clinical Psychology Neuropsychology [facility] 04-17-2022 Note Attestation signed by Marisa Carter, PhD at 04/22/2022 1:40 PM I supervised all aspects of this service. 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 She recalls multiple details of events prior to arriving at work and for the first few hours of her shift. She reports that her next memory is of lying on the floor near the door to the kitchen feeling leg and head pain. She reports that she was working alone in the kitchen at the time of the fall, but that a tool radial drill press set up operator came in to assist her and a food and nutrition supervisor was also called, who in turn called EMS. Ms. Jewell reports she was transported to [facility] in [place], [place], and adds a few memories of [...] seen as a new patient for a Bell of Worker's Compensation claim related to concussion [...] also includes a 02/03/22 visit note from [facility] Neurology with Chas Romero DO (Neuromuscular [...] 2020 injury. Review of medical records from [facility] on 11/12/21 indicate additional history of [...] but previously saw Dr. Carole Caba at [facility]. She reports she currently follows with Wendy Rubio CNP at [facility]. She reports no history of psychological or neuropsychological evaluation, and no history of psychiatric hospitalization. SUBSTANCE USE: Ms. Jewell reports no current use of alcohol and no history of significant alcohol use. She reports no illicit drug use (more content not included)... [facility] 04-03-2022 Note Attestation signed by [...] knee was brought in from [facility] on a CD disc that was personally [...] 04/03/22 10:18 AM (more content not included)... [facility] 04-01-2022 Note [id number] Rebecca Jewell 1985 F Date Provider Department Center 04/01/2022 MARISA SIMON MP REHAB PSY [facility] No family history on file Reason for Visit and Comments: Concussion [[id number]] [facility] 04-01-2022 Note Attestation signed by Marisa Carter, PhD at 04/01/2022 1:03 PM I participated in and supervised all aspects of this service. REVIEWED BY: Marisa Carter, PhD, ABPP Board Certified Clinical Neuropsychologist [facility] - NEUROPSYCHOLOGY [address] [facility] [address] Ms. Nabila Jewell was seen for a neuropsychological evaluation on 04/01/2022. A report describing the results of this evaluation will be posted after the follow-up appointment is completed. Linda Scott, PhD Clinical Psychologist Neuropsychology Fellow [facility] 04-01-2022 Note Ms. Nabila Jewell has a follow-up appointment on 04/17/2022 with Linda Scott, PhD & Marisa Carter, PhD ABPP in Neuropsychology, to discuss the results of the evaluation on 04/01/2022. This appointment will be conducted via [facility]. [facility] 02-03-2022 Note HNO ID: [id number] Author: Chas Romero, DO Service: ? Author Type: Physician Type: Progress Notes Filed: 02/03/2022 11:27 AM Note Text: Neuromuscular Clinic Follow up Visit SERVICE DATE: 02/03/2022 PCP: Smiley Urias MD [address] [place] [address] Reason for Evaluation: Consultation requested by Self for an opinion regarding right leg weakness Family/Friend accompanying the patient today: none HPI: This is Ms. Nabila Jewell, a 36 year old female who presents to the [facility] with the chief complaint above. 02/03/2022: [...] get up after this. She went to [facility] in [place]. She was evaluated and did testing and [...] significant dysarthria M (more content not included)... [facility] 02-03-2022 History of Present illness Narrative Neuromuscular Clinic Follow up Visit SERVICE DATE: 02/03/2022 PCP: Smiley Urias MD [address] [place] [address] Reason for Evaluation: Consultation requested by Self for an opinion regarding right leg weakness Family/Friend accompanying the patient today: none HPI: This is Ms. Nabila Jewell, a 36 year old female who presents to the [facility] with the chief complaint above. 02/03/2022: [...] get up after this. She went to [facility] in [place]. She was evaluated and did testing and [...] which included preparing to see the patient, [id number] patient care, completing clinical documentation, obtaining and/or reviewing separately obtained history, performing a medically appropriate examination, and counseling and educating the patient/family/caregiver. documented in this encounter [facility] 01-30-2022 Miscellaneous Notes I called patient and communicated results of EMG testing, all questions answered. Advised her that she does not need to follow up with me. Chas Romero DO documented in this encounter [facility] 01-23-2022 Note HNO ID: [id number] Author: Sofi Hernandez MD Service: ? Author [...] [facility] EMG Tech Sofi Hernandez MD [facility] 01-23-2022 History of Present illness Narrative [...] Sofi Hernandez MD documented in this encounter [facility] 01-14-2022 Note PROCEDURE: XR KNEE L [...] authenticated by: PASCUAL GAMBLE Date: 2022-01-14 12:01 [facility] 01-01-2022 Evaluation note Encounter Date Diagnosis Assessment [...] months if needed Continue restrictions- off work. [employer] Other 06-10-2022 Miscellaneous Notes* Telephone Encounter - Sky Rapp - 12/06/2021 11:31 AM EDT Relationship to patient: Self Reason for call (non-seizure related) Patient called asking about status of prior authorization [facility] order Patient of Dr. Romero [facility]* Encounter Date Diagnosis Assessment Notes Treatment Notes Treatment Clinical Notes October, Sprain of unspecified site of right knee, initial encounter (ICD-10 - S83.91XA) 18 Oct, 2021 Contusion of right knee, initial encounter (ICD-10 [...] patient tolerated well with no adverse reactions. [employer] Other 05-17-2022 NoteHNO ID: [id number] Author: Chas Romero, DO Service: ? Author Type: Physician Type: Progress Notes Filed: 11/12/2021 2:58 PM Note Text: Neuromuscular Clinic New Patient Visit SERVICE DATE: 11/12/2021 PCP: Smiley Urias MD [address] [place] [address] Reason for Evaluation: Consultation requested by Self for an opinion regarding right leg weakness Family/Friend accompanying the patient today: none HPI: This is Ms. Nabila Jewell, a 36 year old female who presents to the [facility] with the chief complaint above. She had an injury at work (March 2021)-she fell and hit her head on a prep table and fell onto her knee. She had difficulty moving to get up after this. She went to [facility] in [place]. She was evaluated and did testing and [...] Hip abduction 4+ (giveaw (more content not included)...[facility]05-17-2022 Instructions* Patient Instructions* Chas Romero DO - 11/12/2021 2:47 PM EDT You were seen today for right leg weakness, I ordered EMG to assess for this. Continue physical therapy exercises. documented [facility] History of Present illness Narrative* Chas Romero DO - 11/12/2021 2:00 PM EDT Neuromuscular Clinic New Patient Visit SERVICE DATE: 11/12/2021 PCP: Smiley Urias MD [address] [place] [address] Reason for Evaluation: Consultation requested by Self for an opinion regarding right leg weakness Family/Friend accompanying the patient today: none HPI: This is Ms. Nabila Jewell, a 36 year old female who presents to the [facility] with the chief complaint above. She had an injury at work (March 2021)-she fell and hit her head on a prep table and fell onto her knee. She had difficulty moving to get up after this. She went to [facility] in [place]. She was evaluated and did testing and [...] which included preparing to see the patient, [id number] patient care, completing clinical documentation, obtaining and/or reviewing separately obtained history, performing a medically appropriate examination, counseling and educating the pat ient/family/caregiver and ordering medications, tests, or procedures. documented in this [facility] Miscellaneous Notes* Telephone Encounter - Sky Rapp - 10/22/2021 10:54 AM EDT Referral, medical records received and scanned in for review. documented in this encounterPro[facility] Evaluation note* Encounter Date Diagnosis Assessment Notes Treatment Notes Treatment Clinical Notes Aug, Sprain of unspecified site of right knee, initial encounter (ICD-10 - S83.91XA) Continue physical therapy with approval [facility] and referral to neurology for knee [...] pain. Continue restrictions-of f work, Continue with [employer] Other 01-26-2022 Evaluation note* Encounter Date Diagnosis [...] knee pain. Continue restrictions-off work, Continue with [employer] Other 12-15-2021 Evaluation note* Encounter Date Diagnosis [...] on the affected leg. Continue off work [employer] Other 11-17-2021 Evaluation note* Encounter Date Diagnosis [...] She has seen an occupational physician at [facility] who is ordered a hinged knee brace [...] weeks therapy. Apply for for cortisone injection. [facility] Continue off work [employer] Other 10-20-2021 Evaluation note* Encounter Date Diagnosis [...] will submit for an MRI approval throught [facility]. Continue off of work. Mar, Other See orders for this visit as documented in the electronic medical record. [employer] Other 10-06-2021 NoteChief Complaint consultation for abscess [...] 2: Father. Hyperlipidemia: Father. Hypertension: Mother and Father.[facility] above: Result Comment: Electronically Signed By: LAVELL QUARLES, Edson Strong\Date and Time Signed: 04/03/21 16:35 EDTEvaluation note* Diagnosis Right leg weakness- Primary Other musculoskeletal symptoms referable to limbs documented in this encounter [facility] noteNo [employer] Other Evaluation note* Diagnosis Right leg weakness Other musculoskeletal symptoms referable to limbs documented in this encounter [facility] note* Diagnosis Right leg weakness- Primary Other musculoskeletal symptoms referable to limbs [facility] - Reported* Type Description Date Medical History Chronic back pain Medical History HTN Medical History Anxiety Surgical History cholecystectomy Surgical History C section x 2 Surgical History pilonidal cyst Hospitalization History HTN [employer] Other History general Narrative - Reported* Type Description Date Medical History Chronic back pain Medical History HTN Medical History Anxiety Surgical History cholecystectomy Surgical History C section x 2 Surgical History pilonidal cyst Hospitalization History HTN Hospitalization History see surgeries [employer] [place] [facility] [employer] Other Reason for referral (narrative)* Outpatient Procedure (Routine) - Authorized Specialty Diagnoses / Procedures Referred By Daniel perry Referred To Contact [facility] [place] Diagnoses Right leg weakness Procedures EMG(NEURO/NI) NERVE CONDUCTION STUDIES 9-10 STUDIES Chas Romero DO [facility] [place] [address] Neurological [place] [address] [place] [address] Referral ID Status Reason Start Date Expiration Date Visits Requested Visits Authorized [id number] Authorized Auto-Generat ed Referral 11/12/2021 11/12/2022 1 1 [facility] for referral (narrative)* Reason referral for neurolo gy for weakness of the right knee and second opinion Diagnosis 1 Sprain of unspecifie d site of right knee, initial encounter (S83.91XA) Referral Organization [facility] Orth[facility]ics Referring Provider First Name Rolando Referring Provider Last Name Miracle Referring Provider Specialty Orthopedic Surgery Referred Organization Unknown Facility Referred Provider Specialty Neurology Referral Priority Routine [facility] [employer] Other Summary Purpose Family History No Family [...] DATE CREATED AUTHOR AUTHOR'S ORGANIZ ATION 03/02/2020 [facility] DATE CREATED AUTHOR AUTHOR'S ORGANIZ ATION 03/06/2021 [facility] DATE CREATED AUTHOR AUTHOR'S ORGANIZ ATION 04/10/2021 [facility] DATE CREATED AUTHOR AUTHOR'S ORGANIZ ATION 09/29/2021 [facility] DATE CREATED AUTHOR AUTHOR'S ORGANIZ ATION 03/06/2022 [facility] DATE CREATED AUTHOR AUTHOR'S ORGANIZ ATION 04/04/2022 [facility] DATE CREATED AUTHOR AUTHOR'S ORGANIZ ATION 08/29/2022 [facility] DATE CREATED AUTHOR AUTHOR'S ORGANIZ ATION 03/08/2023 [facility] DATE CREATED AUTHOR AUTHOR'S ORGANIZ ATION 07/22/2023 [facility] DATE CREATED AUTHOR AUTHOR'S ORGANIZ ATION 09/16/2023 [facility] Source Comments (unrecognize d section and content) In the event this informatio n is protected by the Federal Confidentiality of Alcohol and Drug Abuse Patient Records regulations: The Federal rules restrict any use of the information to criminally investigate or prosecute any alcohol or drug abuse patient.[facility] HospitalIn the event this information is protected by the Federal Confidentiality of Alcohol and Drug Abuse Patient Records regulations: The Federal rules restrict any use of the information to criminally investigate or prosecute any alcohol or drug abuse patient.[facility] HospitalIn the event this information is protected by the Federal Confidentiality of Alcohol and Drug Abuse Patient Records regulations: The Federal rules restrict any use of the information to criminally investigate or prosecute any alcohol or drug abuse patient.[facility] HospitalIn the event this information is protected by the Federal Confidentiality of Alcohol and Drug Abuse Patient Records regulations: The Federal rules restrict any use of the information to criminally investigate or prosecute any alcohol or drug abuse patient.[facility] HospitalIn the event this information is protected by the Federal Confidentiality of Alcohol and Drug Abuse Patient Records regulations: The Federal rules restrict any use of the information to criminally investigate or prosecute any alcohol or drug abuse patient.[facility] HospitalIn the event this information is protected by the Federal Confidentiality of Alcohol and Drug Abuse Patient Records regulations: The Federal rules restrict any use of the information to criminally investigate or prosecute any alcohol or drug abuse patient.[facility] Reason for Visit (unrecogniz ed section and content) Reason Comments Received Outside Medical Records Reason Comments New Patient Musculoskeletal Problem RT lower extremi ties Reason Comments Insurance Authorization Reason Comments EMG Specialty Diagnoses / Procedures Referred By Daniel t Referred To Contact [facility] [place] Diagnoses Right leg weakness Procedures EMG(NEURO/NI) NERVE CONDUCTION STUDIES 9-10 STUDIES Chas Romero, [address] [place] [address] [place] [id number] Referral ID Status Reason Start Date Expiration Date V isits Requested Visits Authorized [id number] Closed Auto-Generate d Referral 11/12/2021 11/12/2022 1 1 Reason Comments Results Reason Comments Established Patient Follow Up Visit Care Teams (unrecognized sec tion and content) Costumed Character Relationship Specialty Start Date End Date Smiley Urias MD PCP - General Family Practice 03/02/14 Serafin Bartlett, DO [address] [address] Referring Neurology 04/14/19 Rolando Turner, DO [address] [place] [address] Referring Orthopedics 10/11/21 Costumed Character Relationship Specialty Start Date End Date Smiley Urias MD PCP - General Family Practice 03/02/14 Serafin Bartlett, DO [address] [address] Referring Neurology 04/14/19 Rolando Turner DO [address] [place] [address] Referring Orthopedics 10/11/21 Costumed Character Relationship Specialty Start Date End Date Smiley Urias MD PCP - General Family Practice 03/02/14 Serafin Bartlett, DO [address] [place] [address] Referring Neurology 04/14/19 Rolando Turner, DO [address] [place] [address] Referring Orthopedics 10/11/21 Zehra Holly, IDENTITY ACCESS MANAGEMENT ARCHITECT [address] [place] [phone] Referring Family Practice 11/19/21 Costumed Character Relationship Specialty Start Date End Date Smiley Urias MD PCP - General Family Practice 03/02/14 Serafin Bartlett, DO [address] [address] Referring Neurology 04/14/19 Rolando Turner, DO [address] [place] [address] Referring Orthopedics 10/11/21 Zehra Holly, IDENTITY ACCESS MANAGEMENT ARCHITECT [address] [place] [facility] [place] [id number] Referring Family Practice 11/19/21 Costumed Character Relationship Specialty Start Date End Date Smiley Urias MD PCP - General Family Practice 03/02/14 Serafin Bartlett, DO [address] [place] [address] Referring Neurology 04/14/19 Rolando Turner, DO [address] [place] [address] Referring Orthopedics 10/11/21 Zehra Holly, IDENTITY ACCESS MANAGEMENT ARCHITECT [address] [place] [phone] Referring Family Practice 11/19/21 FOR RECORDS PERTAINING [...] BE BASED ON THE PRIMARY CLINICAL RECORDS. [facility] [employer] provides no warranty or guarantee of the accuracy or completeness of information in this document.
[2023-09-25 15:04] LABS: Internal Control Within Normal Limits; Strep A Antigen Screen Negative
--- NOTE | 2023-09-25 15:08 | ED.GENADUL1 ---
HPI HPI - General Adult General Chief complaint: Upper Respiratory Infection Stated complaint: SORE THROAT Time Seen by Provider: 09/25/23 14:38 Source: patient Mode of arrival: walk-in Limitations: no limitations History of Present Illness HPI narrative: 38-year-old presents with chief complaint of sore throat. Patient's mother had a stroke this week she needs to go see her in an ICU in [place] and wanted to make sure she had no acute illness. Posterior pharynx within normal limits. Denies any fevers or chills. Patient is afebrile nontoxic. Related Data Home Medications ?Medication ?Instructions ?Recorded ?Confirmed alprazolam 0.5 mg tablet (Xanax) 0.5 mg PO BID 04/27/23 04/27/23 amitriptyline 25 mg tablet 25 mg PO DAILY 04/27/23 04/27/23 celecoxib 200 mg capsule (Celebrex) 200 mg PO BID 04/27/23 04/27/23 gabapentin 300 mg capsule 300 mg PO TID 04/27/23 04/27/23 lisinopril 20 mg tablet 20 mg PO DAILY 04/27/23 04/27/23 magnesium 200 mg tablet 400 mg PO DAILY 04/27/23 04/27/23 methadone 10 mg/mL oral 50 mg PO DAILY 04/27/23 04/27/23 concentrate (Methadose) potassium 20 meq PO BEDTIME 04/27/23 04/27/23 ferrous sulfate 325 mg (65 mg 325 mg PO DAILY 06/15/23 06/15/23 iron) tablet (Feosol) Allergies Allergy/AdvReac Type Severity Reaction Status Date / Time azithromycin Allergy Unknown Verified 04/27/23 13:41 Opioid HPI Opioid Management Most Recent Opioid Data: No Data to Display Review of Systems ROS Narrative All Systems are negative except as noted/marked.All systems reviewed and otherwise negative Exam Narrative Exam Narrative: Nurses note and vital signs reviewed and patient is not hypoxic. General: The patient appears well and in no apparent distress. Patient is resting comfortably on cart. Skin: Warm, dry, no pallor noted. There is no rash noted. Head: Normocephalic, atraumatic Eye: Normal conjunctiva, no drainage, EOMI. PERRL Ears, Nose, Mouth, and Throat: No acute swelling no exudates, posterior nasal drainage noted,oral mucosa is moist. Nares patent. Mouth without vesicles. Ear canals patent. Tm's without Erythema Respiratory: Patient is in no distress, no accessory muscle use, lungs are clear to auscultation, no wheezing, rales or rhonchi Back: non-tender, no CVA tenderness bilaterally to percussion. Musculoskeletal: The patient has no evidence of calf tenderness, no pitting edema, symmetrical pulses noted bilaterally Neurological: A&O x4, normal speech Psychiatric: Cooperative Constitutional Vital Signs, click to edit/add: Last Vital Signs Temp 97.9 F 09/25/23 14:35 Pulse 102 H 09/25/23 14:35 Resp 18 09/25/23 14:35 BP 170/100 H 09/25/23 14:35 Pulse Ox 100 09/25/23 14:35 Course Vital Signs Vital signs: Vital Signs Temperature 97.9 F 09/25/23 14:35 Pulse Rate 102 H 09/25/23 14:35 Respiratory Rate 18 09/25/23 14:35 Blood Pressure 170/100 H 09/25/23 14:35 Pulse Oximetry 100 09/25/23 14:35 Temperature 97.9 F 09/25/23 14:35 Pulse Rate 102 H 09/25/23 14:35 Respiratory Rate 18 09/25/23 14:35 Blood Pressure 170/100 H 09/25/23 14:35 Pulse Oximetry 100 09/25/23 14:35 Medical Decision Making [facility] Narrative Medical decision making narrative: Patient presents here with chief complaint sore throat. Rapid strep obtained and is negative. Patient just needed clearance in order to go see family members in the hospital. She also has a history of high blood pressure. She states he has been under a lot of stress. Denies any fevers chills headache blurred vision double vision. She states she has her medication at home she takes it at night.Follow-up with primary care physician. Differential Diagnosis Differential Diagnosis: Pharyngitis, strep, URI Medical Records Medical records reviewed: Yes I reviewed the patient's medical records Lab Data Lab results reviewed: Yes I reviewed the patient's lab results Labs: Lab Results 09/25/23 Range/Units 14:40 Streptococcus Screen Negative Discharge Plan Discharge Stand Alone Forms: Portal Instructions Chief Complaint: Upper Respiratory Infection Clinical Impression: Hypertension, Pharyngitis Patient Disposition: Home, Self-Care Time of Disposition Decision: 14:49 Condition: Good Prescriptions / Home Meds: No Action potassium 20 mEq 20 meq PO BEDTIME magnesium 200 mg tablet 400 mg PO DAILY lisinopril 20 mg tablet 20 mg PO DAILY alprazolam [Xanax] 0.5 mg tablet 0.5 mg PO BID methadone [Methadose] 10 mg/mL concentrate 50 mg PO DAILY amitriptyline 25 mg tablet 25 mg PO DAILY gabapentin 300 mg capsule 300 mg PO TID celecoxib [Celebrex] 200 mg capsule 200 mg PO BID ferrous sulfate [Feosol] 325 mg (65 mg iron) tablet 325 mg PO DAILY Print Language: Vietnamese Instructions: Pharyngitis (ED), Hypertension (ED) Referrals: Yovani Echols MD [Primary Care Provider] - 1 week
== END 2023-09-25 15:18 | disposition home or self-care (01) ==
PROVIDERS: Physician Assistant; Emergency Provider Emergency Medicine; PCP Family Medicine
DX: J02.9 Acute pharyngitis, unspecified (principal); I10 Essential (primary) hypertension; Z79.899 Other long term (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 therapy
CPT/HCPCS: 87070; 87880; 99283

== ENCOUNTER 2023-10-29 13:50 | Outpatient (OUT) | payer OTHER, SELFPAY ==
--- NOTE | 2023-10-29 13:50 | P.CN_ITS ---
Consult Note: HPI Data of Consult Patient: known to practice within the last 3 years Consult date: 07/13/23 Requesting Physician: Claudia Sanchez NP Primary Care Provider: Yovani Echols MD Consult Narrative Reason for consult: neck pain, headaches Narrative: 37yof who presents for assessment. historically chronic neck pain and headaches post work injury and concussion. Since last visit patient was evaluated by a chiropractor and has found 100% improvement in her pain and headaches. Patient has weaned off of gabapentin, celebrex, and amitriptyline without side effects or change in pain. Patient has also been working towards weight loss. 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 Pain today 0/10. cc:: CC: Claudia Sanchez NP Review of Systems ROS Status of ROS 10 or more systems reviewed and unremark able except as noted in history and below Meds Home Medications and Allergies Home Medications ?Medication ?Instructions ?Recorded ?Confirmed ?Type alprazolam 0.5 mg tablet (Xanax) 0.5 mg PO BID 04/27/23 04/27/23 History amitriptyline 25 mg tablet 25 mg PO DAILY 04/27/23 04/27/23 History celecoxib 200 mg capsule (Celebrex) 200 mg PO BID 04/27/23 04/27/23 History gabapentin 300 mg capsule 300 mg PO TID 04/27/23 04/27/23 History lisinopril 20 mg tablet 20 mg PO DAILY 04/27/23 04/27/23 History magnesium 200 mg tablet 400 mg PO DAILY 04/27/23 04/27/23 History methadone 10 mg/mL oral 50 mg PO DAILY 04/27/23 04/27/23 History concentrate (Methadose) potassium 20 meq PO BEDTIME 04/27/23 04/27/23 History ferrous sulfate 325 mg (65 mg 325 mg PO DAILY 06/15/23 06/15/23 History iron) tablet (Feosol) Allergies Allergy/AdvReac Type Severity Reaction Status Date / Time azithromycin Allergy Unknown Verified 04/27/23 13:41 Exam Constitutional Documenting provider has reviewed patient's vital signs: yes Common normals: no apparent distress, oriented x3, healthy appearing, alert and well nourished General appearance: cooperative HENMT Common normals: normocephalic, hearing grossly normal bilaterally and moist oral mucous membranes Head and scalp: normocephalic Eye Common normals: PERRL Pupil: PERRL Neck & C-Spine Common normals: full ROM General: normal visual inspection Cervical spine: cervical ROM normal Other: no facet pain negative radiculopathy strength 5/5 in BUE sensation intact BUE Chest Common normals: inspection of chest normal Respiratory Common normals: normal respiratory effort, no retractions and no use of accessory muscles Neuro Common normals: oriented x3, CN's II-XII intact bilaterally, moves all extremities, no focal motor deficits, no sensory deficits noted and deep tendon reflexes 2+ bilaterally Sensorium/orientation: alert Motor exam: strength 5/5 throughout and no movement abnormalities noted Psych Common normals: mental status grossly normal, thought process normal, cooperative, affect normal, speech normal and activity/motor behavior normal Speech: normal speech Thought process: normal thought process Results Additional Findings Additional findings: If on a controlled substance or opioids, I have checked an [place] report on this patient and there are no aberrancies noted in the prescribing history.??If on a controlled substance or opioid a drug screen was completed and reviewed within the last year, and if there has not been a drug screen completed we ordered one today to monitor higher risk, state monitored pain medication use. As part of providing excellent, safe, comprehensive care, the following was completed at our patient's visit: 1. A medication reconciliation and review to ensure accurate knowledge of current/active medications, including asking our patients to inform us about any [id number] medications or herbal remedies/nutritional supplements/alternative remedies. 2. A review to specifically ensure our patients have had annual screening for screening for depression, screening for tobacco use, and screening for unhealthy alcohol use. For concerning screenings had a discussion with the patient, provided patient education, and recommended follow-up with primary care provider when appropriate. If patient noted with a risk of falling, they received education on strength, gait, and balance training to prevent future risk of falling. Assessment and Plan Assessment and Plan (1) Cervicalgia: (2) Cervical spondylosis: Plan pain resolved f/u as needed
== END 2023-10-29 13:51 | disposition home or self-care (01) ==
LOC: PM 13:50
PROVIDERS: PCP Family Medicine; Visit Provider Nurse Practitioner
DX: M54.2 Cervicalgia (principal); M47.816 Spondylosis without myelopathy or radiculopathy, lumbar region
CPT/HCPCS: G0463

== ENCOUNTER 2024-01-26 11:30 | Outpatient (OUT) | payer OTHER, SELFPAY ==
[2024-01-26 12:41] LABS: Alanine Aminotransferase 25 U/L (14-59); Albumin Globulin Ratio 0.8; Albumin Level 3.3 g/dL (3.4-5.0); Alkaline Phosphatase 101 U/L (46-116); Anion Gap 9.3; Aspartate Amino Transferase 16 U/L (15-37); BUN Creatinine Ratio 14.7; Bilirubin Direct 0.1 mg/dL (0.0-0.2); Bilirubin Total 0.4 mg/dL (0.2-1.0); Calcium 9.2 mg/dL (8.5-10.1); Carbon Dioxide 28.9 mmol/L (21.0-32.0); Chloride 99 mmol/L (98-107); Estimated GFR (African America >60 (>=60); Estimated GFR (Non-African Ame >60 (>=60); Globulin 4.4 g/dL; Glucose 95 mg/dL (74-106); Potassium 4.2 mmol/L (3.5-5.1); Sodium 133 mmol/L (136-145); Total Protein 7.7 g/dL (6.4-8.2)
[2024-01-26 12:59] LABS: Basophils Absolute Auto 0.1 10^3/uL (0.0-0.1); Basophils Percent Auto 0.8 % (0.2-2.0); Eosinophils Percent Auto 0.7 % (0.9-7.0); Hematocrit 38.5 % (36.0-48.0); Hemoglobin 12.8 g/dL (12.0-16.0); Immature Granulocytes Abs Auto 0.01 10^3/uL (0.00-0.03); Immature Granulocytes Pct Auto 0.2 % (0.0-0.5); Lymphocytes Absolute Auto 1.8 10^3/uL (1.2-3.8); Lymphocytes Percent Auto 30.6 % (20.5-60.0); Mean Corpuscular HGB Conc 33.2 g/dL (29.9-35.2); Mean Corpuscular Hemoglobin 28.8 pg (26.7-34.0); Mean Corpuscular Volume 86.5 fL (81.0-99.0); Mean Platelet Volume 8.7 fL (9.5-13.5); Monocytes Absolute Auto 0.2 10^3/uL (0.3-0.8); Monocytes Percent Auto 4.1 % (1.7-12.0); Neutrophils Absolute Auto 3.8 10^3/uL (1.4-6.5); Neutrophils Percent Auto 63.6 % (43.0-75.0); Platelet Count 309 10^3/uL (150-450); Red Blood Count 4.45 10^6/uL (4.20-5.40); Red Cell Distribution Width 11.9 % (11.0-15.0); White Blood Count 5.9 10^3/uL (4.0-11.0)
[2024-01-27 05:07] LABS: HBsAg Screen Negative (Negative); HCV Ab Non Reactive (Non Reactive); HIV Ab/p24 Ag Screen Non Reactive (Non Reactive); Hep A Ab, IgM Negative (Negative); Hep B Core Ab, IgM Negative (Negative)
== END 2024-01-26 11:31 | disposition home or self-care (01) ==
LOC: LAB 11:31
PROVIDERS: PCP Family Medicine
DX: Z01.812 Encounter for preprocedural laboratory examination (principal); F11.20 Opioid dependence, uncomplicated
CPT/HCPCS: 36415; 80053; 80074; 82248; 85025; 86592; 87389

== ENCOUNTER 2024-03-01 12:56 | Outpatient (OUT) | payer OTHER, SELFPAY ==
--- NOTE | 2024-03-01 13:03 | MM_ITS ---
Patient Name: RIVERA OWENS MR#: [id number] : 1985 Exam Date: 03/01/2024 Ordering Doctor: DR Yovani Echols . RADIOLOGY REPORT PROCEDURE: MM TOMOSYNTHESIS DIAGNOSTIC BI COMPARISON: MG MAMM DIAGNOSTIC 3D GREGORY CAD, 01/22/2022. MG MAMM DX 3D RT CAD, 07/08/2021. MG MAMM GREGORY DIAG W CAD, 03/13/2021. INDICATIONS: Right breast pain Calculator Name NCI Breast Cancer Risk Assessment Tool 5 Year Breast Cancer Risk 0.60% Lifetime Breast Cancer Risk 11.20% Personal Breast Cancer No Personal Ovarian Cancer No Treatments None Family Cancers None LOCATION: [facility] BREAST COMPOSITION: There are scattered areas of fibroglandular density. FINDINGS: DIAGNOSTIC CATEGORY 2--BENIGN FINDING: RIGHT BREAST: No significant suspicious finding. No significant change has occurred. LEFT BREAST: No significant suspicious finding. No significant change has occurred. RECOMMENDATIONS: ROUTINE MAMMOGRAM AND CLINICAL EVALUATION IN 12 MONTHS. PLEASE NOTE: A NORMAL MAMMOGRAM DOES NOT EXCLUDE THE POSSIBILITY OF BREAST CANCER. A CLINICALLY SUSPICIOUS PALPABLE LUMP SHOULD BE BIOPSIED. Dictated by: Dario Lewis M.D. on 03/01/2024 at 15:31 Approved by: Dario Lewis M.D. on 03/01/2024 at 15:38
--- NOTE | 2024-03-01 13:17 | XR_ITS ---
The [address] [address] Patient Name: RIVERA OWENS MRN: [id number] date: 1985 Sex: F Assigned Patient Location: [facility] Current Patient Location: [facility] Accession/Order Number: [id number] Exam Date: 03/01/2024 13:10 Report Date: 03/01/2024 14:09 At the request of: SMILEY URIAS Procedure: XR knee LT 3V EXAM: XR knee LT 3V HISTORY: Left Knee Pain M25.562 COMPARISON: 01/13/2022 TECHNIQUE: 3 views of left knee were obtained. FINDINGS: There is no evidence of an acute fracture or dislocation. There has been interval progression of degenerative change with narrowing of the medial compartment and the increasing osteophytes. There is also slight narrowing of the patellofemoral joint. No osteochondral injury is identified. A mild joint effusion is present. XR/XR knee LT 3V IMPRESSION: Some interval progression of degenerative changes involving the lateral compartment and to a lesser extent the patellofemoral joint. There is no evidence of a fracture or dislocation. A mild joint effusion is present. Electronically authenticated by: KELSIE BRITO Date: 03/01/2024 14:09
== END 2024-03-01 12:57 | disposition home or self-care (01) ==
LOC: MAMMO 12:57
PROVIDERS: PCP Family Medicine; Visit Provider Family Medicine
DX: N64.4 Mastodynia (principal); M25.562 Pain in left knee; M25.462 Effusion, left knee
CPT/HCPCS: 73562; 77066; G0279

== ENCOUNTER 2024-03-05 18:58 | Emergency (ER) | payer OTHER, SELFPAY ==
--- OUTSIDE RECORDS SUMMARY | 2024-03-05 19:05 | XMS_ITS | CCD ---
Author Organization [facility] Care Team Providers Care Relations Manager Name Role Phone VILLEGASEDSON PLASCENCIA Unavailable Unavailab SMILEY Dawkins Unavailable Unavailable PROVIDER, UNKNOWN Attending Unavailable PROVIDER, UNKNOWN Admitting Unavailable Smiley Urias MD Primary Care Provider [phone] Serafin Bartlett DO Unavailable Rolando Turner DO Unavailable Zehra Holly CNP Unavailable Rolando Turner Unavailable Smiley Urias MD Primary Care Provider [phone] Serafin Bartlett DO Unavailable Rolando Turner DO Unavailable Zehra Holly CNP Unavailable [phone] SMILEY URIAS Referring Unavailable SMILEY URIAS Primary Care Unavailable EBRAHEIM, RUFINO Attending Unavailable EBRAWILEY, RUFINO Admitting Unavailable HEATHER, CHAS Attending Unavailable SMILEY URIAS Primary Care Unavailable SMILEY URIAS Primary Care Unavailable ZALE, CHAS Referring Unavailable SMILEY URIAS Primary Care Unavailable ZALE, CHAS Referring Unavailable ZALE, CHAS Attending Unavailable NUZHAT ARZOLA Admitting Unavailable BRIDGETT Burgos, DR REIS Primary Care Unavailable NUZHAT ARZOLA Attending Unavailable MAVIS, DR PASCUAL Lo Consulting Unavailable NUZHAT ARZOLA Consulting Unavailable BRIDGETT ., DR REIS Admitting Unavailable HOY ., DR REIS Attending Unavailable VERONICAY ., DR REIS Consulting Unavailable BRIDGETT ., [...] PONCE Attending Unavailable JENNY HOLLEY Attending Unavailable LEYDI, JENNY Attending Unavailable PASCUAL URIBE Attending Unavailable EBRAHEIM, RUFINO Attending Unavailable LEYDI, JENNY Attending Unavailable EBRAHEIM, RUFINO Attending Unavailable MARISA [...] QUARLES, Fabián Allen Attending Unavailable Germaineitis , Andrius Allen Attending Unavailable Gianni QUARLES, Fabián Allen Attending Unavailable Luiz Knight Attending Unavailab Luiz Brennan Admitting Unavailab Smiley Dawkins Primary Care Unavailable Allergies Allergy Classification Reported Allergen(s) Allergy Type Date of Onset Reaction(s) Facility (7 sources) Erythromycin; Translations: [ERYTHROMYCIN] Drug Allergy [address] [facility] Repository (1 source) Erythromycin Drug Allergy [address] [facility] Repository (1 source) Erythromycin Drug Allergy 1 [facility] Repository (1 source) Erythromycin; Translations: [ERYTHROMYCIN LACTOBIONATE] Drug Allergy 2 [facility] Repository (1 source) ALLERGIES NOT ON FILE; Translations: [ALLERGIES NOT ON FILE] Propensity to adverse reactions (disorder) [facility] Repository (1 source) Azithromycin Drug Allergy 1 [facility] Repository (1 source) Erythromycin Drug Allergy 2 [facility] Repository Medications Current Medications [...] on above: Take 1 capsule by mo [facility] once daily. hydroCHLOROthiazide 12.5 mg / [...] skilled nursing (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 therapy; Translations: [OTH GROUP HOME CURRENT DRUG THERAPY] Onset: 09-10-2021 Episodic Other [...] Patient was sent the letter. [facility] 03-05-2023 36 Patient states she received a note for work but she needs a note stating she is off work. Please email if MD writes she states it is for jobs and family services and she states that is what they need. [facility] Follow-Upon 03-04-2023 Follow-Up [id number] Rebecca Jewell 1985 F Date Provider Department Center 03/04/2023 PASCUAL HOPKINS MP PHYS MED Medical Pavi No family history on file Level of Service:11010 MO OFFICE/OUTPATIENT ESTABLISHED LOW MDM 20-29 MIN (GC) Reason for Visit and Comments: Concussion [951361] - [facility] Office Visiton 02-23-2023 Follow-up visit [id number] Rebecca Jewell 1985 F Date Provider Department Center 02/23/2023 JENNY MARAVILLA MP ORTHO MPORTHO No family history on file Level of Service:46892 MO POSTOP FOLLOW UP VISIT RELATED TO ORIGINAL PX (GC) Reason for Visit and Comments: Pain [136] Follow-up [670066] [facility] Office Visiton 01-12-2023 Follow-up visit [id number] Rebecca Jewell 1985 F Date Provider Department Center 01/12/2023 JENNY MARAVILLA MP ORTHO MPORTHO No family history on file Level of Service:10335 MO POSTOP FOLLOW UP VISIT RELATED TO ORIGINAL PX (GC) Reason for Visit and Comments: Post-op [483] Normal [facility] Orders Onlyon 01-08-2023 Orders Only [id number] Rebecca Jewell 1985 F Date Provider Department Center 01/08/2023 SHRUTHI TORREZ MP ORTHO MPORTHO No family history on file Normal 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 Condition: stable Jenny Yaneshn [facility] POCT GLUCOSE METER UNSOLICIT ED RESULTSon 01-01-2023 Glucose [Mass/Vol] 93 mg/dL Normal 70-105 [facility] Comment on above: Order Comment: Waive d Testing in the ED is performed under the ED CLIA certificate #[id number]. Result Comment: ngro andrew Performed By: #### L [id number] ####[facility] ([facility])[address] [place] [address] HPon 12-31-2022 HP History Of Present Illness [...] saucerization of discoid lateral meniscus 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 36on 12-03-2022 36 [employer] [facility] from [facility] calls to state the last note sent with the [employer] has a statement that patient can work 4 hours per day 20 hours per week but [employer] sent yesterday did not have any thing listed but patient states there were no changes and she is still to be off work. I pulled up [employer] sent in by brief writer and I had forgotten to check the no changes box. In same note it does state by MD patient is not working and will be evaluated upon next ov. I informed her of the error and she requested I resend with the no changes box checked. Form was reprinted and faxed back. [facility] 36 Patient calls to sta te her [...] will call the [employer] back. [facility] Telephoneon 12-03-2022 Telephone [id number] Rebecca Jewell iva Vilma 1985 F Date Provider Department Center 12/03/2022 PASCUAL HOPKINS MP PHYS MED Medical Pavi No family history on file [facility] Follow-Upon 12-01-2022 Follow-Up [id number] Taj Jewellvenancio Esparza 1985 F Date Provider Department [place] 12/01/2022 PASCUAL HOPKINS MP PHYS MED Medical Pavi No family history on file Level of Service:54512 MO OFFICE/OUTPATIENT ESTABLISHED LOW MDM 20-29 MIN (GC) Reason for Visit and Comments: headaches [Other] - [facility] Follow-Upon 09-29-2022 Follow-Up [id number] Rebecca Jewell M 1985 F Date Provider Department Center 09/29/2022 PASCUAL HOPKINS MP PHYS MED Medical Pavi No family history on file Level of Service:00531 MO OFFICE/OUTPATIENT ESTABLISHED LOW MDM 20-29 MIN Reason for Visit and Comments: headaches [Other] Leg Pain [050618] - Right Normal [facility] Orders Onlyon 09-29-2022 Orders Only [id number] Rebecca Jewell M 1985 F Date Provider Department Center 09/29/2022 PASCUAL HOPKINS MP PHYS MED Medical Pavi No family history on file Normal [facility] Office Visiton 09-15-2022 Follow-up visit [id number] Rebecca Jewell M 1985 Date Provider Department Center 09/15/2022 JENNY MARAVILLA MP ORTHO MPORTHO No family history on file Level of Service:79156 MO OFFICE/OUTPATIENT ESTABLISHED MOD MDM 30-39 MIN (57) Reason for Visit and Comments: Pain [136] Normal [facility] CULTURE URINEon 08-22-2022 CULTURE URINE Culture Observations : MODERATE GROWTH OF MIXED GENITAL GISELLE. NO POTENTIAL PATHOGENS SEEN. Normal [facility] Comment on above: Performed By: #### T SH, LIPID, CMP, URIC, T7, CRP #### [facility] [address] [place] [address] Dr. Walker Gabriel UA RANDOM W/MICROSCOPICon BACTERIA MODERATE Abnormal NONE SEEN [facility] Comment on above: Performed By: #### U AMIC #### [facility] [address] [place] [address] Dr. Walker Gabriel Bilirubin Ql (U) Negative Normal NEGATIVE [facility] Comment on above: Performed By: #### U AMIC #### [facility] [address] [place] [address] Dr. Walker Gabriel CAST NONE SEEN Normal NONE SEEN [facility] Comment on above: Performed By: #### U AMIC #### [facility] [address] [place] [address] Dr. Walker Gabriel Clarity (U) CLEAR Normal CLEAR [facility] Comment on above: Performed By: #### U AMIC #### [facility] [address] [address] [address] Walker Gabriel Color (U) YELLOW Normal YELLOW [facility] Comment on above: Performed By: #### U AMIC #### [facility] [address] [place] [address] Dr. Walekr Gabriel Crystals LM Nom (Urine sed) NONE SEEN Normal NONE SEEN [facility] Comment on above: Performed By: #### U AMIC #### [facility] [address] [address] [address] Walker Gabriel Epithelial cells LM Ql (Urine sed) FEW Abnormal NONE SEEN /RARE [facility] Comment on above: Performed By: #### U AMIC #### [facility] [address] [place] [address] Dr. Walker Gabriel Glucose Ql (U) Negative Normal NEGATIVE [facility] Comment on above: Performed By: #### U AMIC #### [facility] [address] [place] [address] Dr. Walker Gabriel Hemoglobin Ql (U) TRACE-LYSED Abnormal NEGATIVE [facility] Comment on above: Performed By: #### U AMIC #### [facility] [address] [place] [address] Dr. Walker Gabriel Ketones Ql (U) Negative Normal NEGATIVE [facility] Comment on above: Performed By: #### U AMIC #### [facility] [address] [address] [address] Walker Gabriel LEUKOCYTES Negative Normal NEGATIVE [facility] Comment on above: Performed By: #### U AMIC #### [facility] [address] [place] [address] Dr. Walker Gabriel MUCOUS NONE SEEN Normal NONE SEEN [facility] Comment on above: Performed By: #### U AMIC #### [facility] [address] [place] [address] Dr. Walker Gabriel Nitrite Ql (U) Negative Normal NEGATIVE [facility] Comment on above: Performed By: #### U AMIC #### [facility] [address] [address] [address] Walker Gabriel pH (U) 6.0 [pH] Normal 5-9 [facility] Comment on above: Performed By: #### U AMIC #### [facility] [address] [address] [address] Walker Gabriel RBC 0-2 Normal 0-2 [facility] Comment on above: Performed By: #### U AMIC #### [facility] [address] [address] [address] Walker Gabriel SPEC GRAVITY >=1.030 Abnormal 1.005-<=1.025 [facility] Comment on above: Performed By: #### U AMIC #### [facility] [address] [place] [address] Dr. Walker Gabriel UA PROTEIN Negative Normal NEGATIVE/ TRACE [facility] Comment on above: Performed By: #### U AMIC #### [facility] [address] [address] [address] Walker Gabriel Urobilinogen Qn (U) 0.2 {Natalie'U}/dL Normal 0.2 - 1. 0 [facility] Comment on above: Performed By: #### U AMIC #### [facility] [address] [place] [address] Dr. Walker Gabriel WBC 2-5 Abnormal NONE SEEN [facility] Comment on above: Performed By: #### U AMIC #### [facility] [address] [place] [address] Dr. Walker Gabriel XR KUB 1 VIEWon [...] by: PASCUAL GAMBLE Date: 2022-08-22 12:42 Normal [facility] Follow-Upon 08-21-2022 Follow-Up [id number] Rebecca Jewell M 1985 Provider Department Center 08/21/2022 CAROLE ENAMORADO MP ORTHO MPORTHO No family history on file Level of Service:77527 MO OFFICE/OUTPATIENT ESTABLISHED LOW MDM 20-29 MIN Reason for Visit and Comments: Pain [136] Normal [facility] Clinical Supporton Clinical Support [id number] Rebecca Jewell M 1985 Date Provider Department [place] 08/06/2022 PARRISH STOVER MP DIETARY Medical Pavi Chart Close Cosign Required by: Samir Mendoza MD[1894] No family history on file Reason for Visit and Comments: Obesity [[id number]] Hypertension [317196] Normal [facility] Erroneous Encounteron 2022 Erroneous Encounter [id number] Rebecca Jewell iva M 1985 [facility] Provider Department [place] 08/06/2022 PARRISH STOVER MP DIETARY Medical Pavi No family history on file Reason for Visit and Comments: Error (VOID this visit) [77] [facility] Documentationon 07-31-2022 Documentation [id number] Rebecca Jewell M 1985 Provider Department [place] 07/31/2022 PARRISH STOVER [facility]UTR[facility] [place] Medical C Chart Close Cosign Required by: Samir Mendoza MD[1894] No family history on file [facility] Follow-Upon 07-02-2022 Follow-Up [id number] Rebecca Jewell M 1985 Date Provider Department [place] 07/02/2022 PASCUAL HOPKINS MP PHYS MED Medical Pavi No family history on file Level of Service:48160 MO OFFICE/OUTPATIENT ESTABLISHED MOD MDM 30-39 MIN Reason for Visit and Comments: Headache [52] Leg Pain [925336] - Right [facility] Refillon 05-28-2022 Refill [id number] Rebecca Jewell iva M 1985 Date Provider Department Center 05/28/2022 PASCUAL HOPKINS MP PHYS MED Medical Pavi No family history on file Reason for Visit and Comments: Med Refill [062422] Normal [facility] Follow-Upon 05-15-2022 Follow-Up [id number] Rebecca Jewell 1985 F Date Provider Department Center 05/15/2022 RUFINO DICKERSON MP ORTHO MPORTHO Chart Close Cosign Required by: Rufino Perdomo MD[[id number]] No family history on file Level of Service:54101 MO OFFICE/OUTPATIENT ESTABLISHED LOW MDM 20-29 MIN (GC) Reason for Visit and Comments: Follow-up [785420] - Follow up on left knee pain. Normal [facility] Follow-Upon 04-30-2022 Follow-Up [id number] Rebecca Jewell 1985 F Date Provider Department Center 04/30/2022 PASCUAL HOPKINS MP PHYS MED Medical Pavi No family history on file Level of Service:88894 MO OFFICE/OUTPATIENT ESTABLISHED MOD MDM 30-39 MIN (GC) Reason for Visit and Comments: headaches [Other] Normal [facility] DARIO by IFAon 04-21-2022 Antinuclear Antibodies, IFA Negative Normal [facility] Comment on above: Result Comment: Nega tive <1:80 Borderline 1:80 Positive >1:80 ICAP nomenclature: AC-0 For more information about Hep-2 cell patterns use ANApatterns.org, the official website for the International Consensus on Antinuclear Antibody (DARIO) Patterns (ICAP). Performed By: #### T SH, LIPID, CMP, URIC, T7, CRP #### [facility] [address] [place], [place] [address] Dr. Walker Gabriel SLE PROFILE Aon 04-21-2022 Anti-DNA (DS) Ab Qn 3 IU/mL Normal 0-9 [facility] Comment on above: Result Comment: Nega tive <5 Equivocal 5 - 9 Positive >9 Performed By: #### S JUSTO #### [facility] [address] [place], [place] [address] Dr. Walker Gabriel Antichromatin Antibodies <0.2 Normal 0.0-0.9 [facility] Comment on above: Performed By: #### S JUSTO #### [facility] [address] [place] [address] Dr. Walker Gabriel RA Latex Turbid. <10.0 Normal <14.0 [facility] Comment on above: Performed By: #### S JUSTO #### [facility] [address] [place] [address] Dr. Walker Gabriel WAFER FAB OPERATOR Antibodies <0.2 Normal 0.0-0.9 [facility] Comment on above: Performed By: #### S JUSTO #### [facility] [address] [place] [address] Dr. Walker Grayogrlinda'lety Anti-SS-A <0.2 Normal 0.0-0.9 [facility] Comment on above: Performed By: #### S JUSTO #### [facility] [address] [place] [address] Dr. Walker Grayogrlinda'lety Anti-SS-B <0.2 Normal 0.0-0.9 [facility] Comment on above: Performed By: #### S JUSTO #### [facility] [address] [place] [address] Dr. Walker Gabriel Lemus Antibodies <0.2 Normal 0.0-0.9 [facility] Comment on above: Performed By: #### S JUSTO #### [facility] [address] [place] [address] Dr. Walker Gabriel ANTISTREPTOLYSIN O AB (ASO)o n 04-19-2022 Antistreptolysin O Ab 227.2 IU/mL Critically high 0.0-200.0 [facility] Comment on above: Performed By: #### T SH, LIPID, CMP, URIC, T7, CRP #### [facility] [address] [place] [address] Dr. Walker Gabriel INSULINon 04-19-2022 Insulin 20.8 uIU/mL Normal 2.6-24.9 [facility] Comment on above: Performed By: #### T SH, LIPID, CMP, URIC, T7, CRP #### [facility] [address] [place] [address] Dr. Walker Gabriel CBC AUTO DIFFon 04-18-2022 BASO # 0.0 103/ul Normal 0.0-0.1 [facility] Comment on above: Performed By: #### T SH, LIPID, CMP, URIC, T7, CRP #### [facility] [address] [place] [address] Dr. Walker Gabriel Basophils/100 WBC (Bld) 0.4 % Normal 0.2-2.0 [facility] Comment on above: Performed By: #### T SH, LIPID, CMP, URIC, T7, CRP #### [facility] [address] [place] [address] Dr. Walker Gabriel EO # 0.1 103/ul Normal 0.0-0.7 [facility] Comment on above: Performed By: #### T SH, LIPID, CMP, URIC, T7, CRP #### [facility] [address] [place] [address] Dr. Walker Gabriel Eosinophils/100 WBC (Bld) 1.4 % Normal 0.9-7.0 [facility] Comment on above: Performed By: #### T SH, LIPID, CMP, URIC, T7, CRP #### [facility] [address] [place] [address] Dr. Walker Gabriel Erythrocyte distribution width (RBC) [Ratio] 12.8 % Normal 11.0-15.0 [facility] Comment on above: Performed By: #### T SH, LIPID, CMP, URIC, T7, CRP #### [facility] [address] [place] [address] Dr. Walker Gabriel Hematocrit (Bld) [Volume fraction] 38.1 % Normal 36.0-48.0 [facility] Comment on above: Performed By: #### T SH, LIPID, CMP, URIC, T7, CRP #### [facility] [address] [place] [address] Dr. Walker Gabriel Hemoglobin (Bld) [Mass/Vol] 12.3 g/dL Normal 12.0-16.0 [facility] Comment on above: Performed By: #### T SH, LIPID, CMP, URIC, T7, CRP #### [facility] [address] [place] [address] Dr. Walker Gabriel IG # 0.03 10e3/ul Normal 0.00-0.03 [facility] Comment on above: Performed By: #### T SH, LIPID, CMP, URIC, T7, CRP #### [facility] [address] [place] [address] Dr. Walker Gabriel IG % 0.4 % Normal 0.0-0.5 [facility] Comment on above: Performed By: #### T SH, LIPID, CMP, URIC, T7, CRP #### [facility] [address] [place] [address] Dr. Walker Gabriel LYMPH # 2.6 103/ul Normal 1.2-3.8 [facility] Comment on above: Performed By: #### T SH, LIPID, CMP, URIC, T7, CRP #### [facility] [address] [place] [address] Dr. Walker Gabriel Lymphocytes/100 WBC (Bld) 35.5 % Normal 20.5-60.0 [facility] Comment on above: Performed By: #### T SH, LIPID, CMP, URIC, T7, CRP #### [facility] [address] [place] [address] Dr. Walker Gabriel MANUAL DIFF REQ NO Normal [facility] Comment on above: Performed By: #### T SH, LIPID, CMP, URIC, T7, CRP #### [facility] [address] [place] [address] Dr. Walker Gabriel MCH (RBC) [Entitic mass] 28.7 pg Normal 26.7-34.0 [facility] Comment on above: Performed By: #### T SH, LIPID, CMP, URIC, T7, CRP #### [facility] [address] [place] [address] Dr. Walker Gabriel MCHC (RBC) [Mass/Vol] 32.3 g/dL Normal 29.9-35.2 [facility] Comment on above: Performed By: #### T SH, LIPID, CMP, URIC, T7, CRP #### [facility] [address] [place] [address] Dr. Walker Gabriel MCV (RBC) [Entitic vol] 88.8 fL Normal 81.0-99.0 [facility] Comment on above: Performed By: #### T SH, LIPID, CMP, URIC, T7, CRP #### [facility] [address] [place] [address] Dr. Walker Gabriel MONO # 0.4 103/ul Normal 0.3-0.8 [facility] Comment on above: Performed By: #### T SH, LIPID, CMP, URIC, T7, CRP #### [facility] [address] [place] [address] Dr. Walker Gabriel Monocytes/100 WBC (Bld) 6.1 % Normal 1.7-12.0 [facility] Comment on above: Performed By: #### T SH, LIPID, CMP, URIC, T7, CRP #### [facility] [address] [place] [address] Dr. Walker Gabriel NEUT # 4.0 103/ul Normal 1.4-6.5 [facility] Comment on above: Performed By: #### T SH, LIPID, CMP, URIC, T7, CRP #### [facility] [address] [place] [address] Dr. Walker Gabriel Neutrophils/100 WBC (Bld) 56.2 % Normal 43.0-75.0 [facility] Comment on above: Performed By: #### T SH, LIPID, CMP, URIC, T7, CRP #### [facility] [address] [place] [address] Dr. Walker Gabriel Platelet mean volume (Bld) [Entitic vol] 8.3 fL Critically low 9.5-13.5 [facility] Comment on above: Performed By: #### T SH, LIPID, CMP, URIC, T7, CRP #### [facility] [address] [place] [address] Dr. Walker Gabriel PLT 328 103/ul Normal 150-450 [facility] Comment on above: Performed By: #### T SH, LIPID, CMP, URIC, T7, CRP #### [facility] [address] [address] [address] Walker Gabriel RBC 4.29 106/ul Normal 4.20-5.40 [facility] Comment on above: Performed By: #### T SH, LIPID, CMP, URIC, T7, CRP #### [facility] [address] [place] [address] Dr. Walker Gabriel WBC 7.2 103/ul Normal 4.0-11.0 [facility] Comment on above: Performed By: #### T SH, LIPID, CMP, URIC, T7, CRP #### [facility] [address] [address] [address] Walker Gabriel CRPon 04-18-2022 CRP 1.3 mg/dL Critically high <=1.0 [facility] Comment on above: Performed By: #### T SH, LIPID, CMP, URIC, T7, CRP #### [facility] [address] [place] [address] Dr. Walker Gabriel FREE THYROXINE INDEX T7on FTI 2.91 Normal 1.30-4.50 [facility] Comment on above: Performed By: #### T SH, LIPID, CMP, URIC, T7, CRP #### [facility] [address] [place] [address] Dr. Walker Gabriel T3U 31.0 % Normal 30.0-39.0 [facility] Comment on above: Performed By: #### T SH, LIPID, CMP, URIC, T7, CRP #### [facility] [address] [place] [address] Dr. aWlker Gabriel T4 [Mass/Vol] 9.40 ug/dL Normal 4.80-13.90 [facility] Comment on above: Performed By: #### T SH, LIPID, CMP, URIC, T7, CRP #### [facility] [address] [place] [address] Dr. Walker Gabriel GLYCOHEMOGLOBIN A1Con 2021 ADA RECOMMENDATION SEE BELOW Normal [facility] Comment on above: Result Comment: ADA RECOMMENDED LIMIT 4.0 - 6.0 ADA THERAPEUTIC TARGET < 7.0 ACTION SUGGESTED > 7.0 Performed By: #### T SH, LIPID, CMP, URIC, T7, CRP #### [facility] [address] [place] [address] Dr. Walker Gabriel Glucose [Mass/Vol] 114 mg/dL Normal [facility] Comment on above: Performed By: #### T SH, LIPID, CMP, URIC, T7, CRP #### [facility] [address] [place] [address] Dr. Walker Gabriel HbA1c (Bld) [Mass fraction] 5.6 % Normal 4.5-6.2 [facility] Comment on above: Performed By: #### T SH, LIPID, CMP, URIC, T7, CRP #### [facility] [address] [place] [address] Dr. Walker Gabriel IRONon 04-18-2022 Iron [Mass/Vol] 34.0 ug/dL Critically low 50.0-170.0 [facility] Comment on above: Performed By: #### I FRANCISCO #### [facility] [address] [place] [address] Dr. Walker Gabriel LIPID PROFILEon 04-18-2022 CHOL-HDL RATIO NORM SEE BELOW Normal [facility] Comment on above: Result Comment: 3.3 - 4.4 LOW RISK 4.4 - 7.1 AVERAGE RISK 7.1 - 11.0 MODERATE RISK >11.0 HIGH RISK Performed By: #### T SH, LIPID, CMP, URIC, T7, CRP #### [facility] [address] [place] [address] Dr. Walker Gabriel Cholesterol [Mass/Vol] 174 mg/dL Normal <=200 [facility] Comment on above: Performed By: #### T SH, LIPID, CMP, URIC, T7, CRP #### [facility] [address] [place] [address] Dr. Walker Gabriel Cholesterol in HDL [Mass/Vol] 70 mg/dL Critically high 40-60 [facility] Comment on above: Performed By: #### T SH, LIPID, CMP, URIC, T7, CRP #### [facility] [address] [address] [address] Walker Gabriel Cholesterol in LDL [Mass/Vol] 92.8 mg/dL Normal [facility] Comment on above: Performed By: #### T SH, LIPID, CMP, URIC, T7, CRP #### [facility] [address] [address] [address] Walker Gabriel Cholesterol.total/Ch olesterol in HDL [Mass ratio] 2.5 {ratio} Normal [facility] Comment on above: Performed By: #### T SH, LIPID, CMP, URIC, T7, CRP #### [facility] [address] [address] [address] Walker Gabriel HDL NORMAL > or = 60 mg/dl - LO W CARDIOVASCULAR RISK <40 mg/dl - HIGH CARDIOVASCULAR RISK Normal [facility] Comment on above: Performed By: #### T SH, LIPID, CMP, URIC, T7, CRP #### [facility] [address] [address] [address] Walker Gabriel LDL CALC NORMAL SEE BELOW Normal [facility] Comment on above: Result Comment: <100 mg/dl OPTIMAL 100 - 129 mg/dl NEAR OR ABOVE OPTIMAL 130 - 159 mg/dl BORDERLINE HIGH 160 - 189 mg/dl HIGH >190 mg/dl VERY HIGH Performed By: #### T SH, LIPID, CMP, URIC, T7, CRP #### [facility] [address] [address] [address] Walker Gabriel Triglyceride [Mass/Vol] 56 mg/dL Normal <=150 [facility] Comment on above: Performed By: #### T SH, LIPID, CMP, URIC, T7, CRP #### [facility] [address] [address] [address] Walker Gabriel VLDL CALC 11.2 mg/dL Normal [facility] Comment on above: Performed By: #### T SH, LIPID, CMP, URIC, T7, CRP #### [facility] [address] [address] [address] Walker Gabriel PROF 14(COMP METB)on 04-18- 022 Albumin [Mass/Vol] 3.0 g/dL Critically low 3.4-5.0 Th [facility] Comment on above: Performed By: #### T SH, LIPID, CMP, URIC, T7, CRP #### [facility] [address] [place] [address] Dr. Walker Gabriel Albumin/Globulin [Mass ratio] 0.6 {ratio} Normal [facility] Comment on above: Performed By: #### T SH, LIPID, CMP, URIC, T7, CRP #### [facility] [address] [place] [address] Dr. Walker Gabriel ALP [Catalytic activity/Vol] 102 U/L Normal 46-116 [facility] Comment on above: Performed By: #### T SH, LIPID, CMP, URIC, T7, CRP #### [facility] [address] [place] [address] Dr. Walker Gabriel ALT [Catalytic activity/Vol] 19 U/L Normal 14-59 [facility] Comment on above: Performed By: #### T SH, LIPID, CMP, URIC, T7, CRP #### [facility] [address] [place] [address] Dr. Walker Gabriel Anion gap [Moles/Vol] 7.9 mmol/L Normal [facility] Comment on above: Performed By: #### T SH, LIPID, CMP, URIC, T7, CRP #### [facility] [address] [place] [address] Dr. Walker Gabriel AST [Catalytic activity/Vol] 12 U/L Critically low 15-37 [facility] Comment on above: Performed By: #### T SH, LIPID, CMP, URIC, T7, CRP #### [facility] [address] [place] [address] Dr. Walker Gabriel Bilirubin [Mass/Vol] 0.1 mg/dL Critically low 0.2-1.0 [facility] Comment on above: Performed By: #### T SH, LIPID, CMP, URIC, T7, CRP #### [facility] [address] [place] [address] Dr. Walker Gabriel Calcium [Mass/Vol] 8.9 mg/dL Normal 8.5-10.1 [facility] Comment on above: Performed By: #### T SH, LIPID, CMP, URIC, T7, CRP #### [facility] [address] [address] [address] Walker Gabriel Chloride [Moles/Vol] 103 mmol/L Normal 98-107 [facility] Comment on above: Performed By: #### T SH, LIPID, CMP, URIC, T7, CRP #### [facility] [address] [place] [address] Dr. Walker Gabriel CO2 [Moles/Vol] 28.4 mmol/L Normal 21.0-32.0 [facility] Comment on above: Performed By: #### T SH, LIPID, CMP, URIC, T7, CRP #### [facility] [address] [place] [address] Dr. Walker Gabriel Creatinine [Mass/Vol] 0.91 mg/dL Normal 0.55-1.02 [facility] Comment on above: Performed By: #### T SH, LIPID, CMP, URIC, T7, CRP #### [facility] [address] [place] [address] Dr. Walker Gabriel EGFR-AF ESTONIAN >60 Normal >=60 [facility] Comment on above: Performed By: #### T SH, LIPID, CMP, URIC, T7, CRP #### [facility] [address] [place] [address] Dr. Walker Gabriel EGFR-NON AF ESTONIAN >60 Normal >=60 [facility] Comment on above: Performed By: #### T SH, LIPID, CMP, URIC, T7, CRP #### [facility] [address] [place] [address] Dr. Walker Gabriel Globulin (S) [Mass/Vol] 4.7 g/dL Normal [facility] Comment on above: Performed By: #### T SH, LIPID, CMP, URIC, T7, CRP #### [facility] [address] [place] [address] Dr. Walker Gabriel Glucose [Mass/Vol] 87 mg/dL Normal 74-106 [facility] Comment on above: Performed By: #### T SH, LIPID, CMP, URIC, T7, CRP #### [facility] [address] [address] [address] Walker Gabriel Potassium [Moles/Vol] 4.3 mmol/L Normal 3.5-5.1 [facility] Comment on above: Performed By: #### T SH, LIPID, CMP, URIC, T7, CRP #### [facility] [address] [place] [address] Dr. Walker Gabriel Protein [Mass/Vol] 7.7 g/dL Normal 6.4-8.2 [facility] Comment on above: Performed By: #### T SH, LIPID, CMP, URIC, T7, CRP #### [facility] [address] [place] [address] Dr. Walker Gabriel Sodium [Moles/Vol] 135 mmol/L Critically low 136-145 Th [facility] Comment on above: Performed By: #### T SH, LIPID, CMP, URIC, T7, CRP #### [facility] [address] [place] [address] Dr. Walker Gabriel Urea nitrogen [Mass/Vol] 21.0 mg/dL Critically high 7.0-18.0 [facility] Comment on above: Performed By: #### T SH, LIPID, CMP, URIC, T7, CRP #### [facility] [address] [place] [address] Dr. Walker Gabriel Urea nitrogen/Creatinine [Mass ratio] 23.1 mg/mg Normal [facility] Comment on above: Performed By: #### T SH, LIPID, CMP, URIC, T7, CRP #### [facility] [address] [place] [address] Dr. Walker Gabriel TSHon 04-18-2022 TSH 2.570 uIU/mL Normal 0.358-3.740 [facility] Comment on above: Performed By: #### T SH, LIPID, CMP, URIC, T7, CRP #### [facility] [address] [place] [address] Dr. Walker Gabriel URIC ACID SERUMon 04-18-2022 Urate [Mass/Vol] 5.7 mg/dL Normal 2.6-6.0 [facility] Comment on above: Performed By: #### T SH, LIPID, CMP, URIC, T7, CRP #### [facility] [address] [address] [address] Walker Gabriel US VENOUS DOPPLER L [...] by: JENNY ARIAS Date: 2022-04-18 18:43 Normal [facility] Clinical Supporton Clinical Support [id number] Rebecca Jewell 1985 [facility] Provider Department [place] 04/17/2022 [facility] No family history on file Reason for Visit and Comments: Worker's Compensation [732] Follow-up [042869] Concussion [342446] Normal [facility] Follow-Upon 04-03-2022 Follow-Up [id number] Rebecca Jewell 1985 [facility] 04/03/2022 260-RUFINO [facility]DOM[facility] Close Cosign Required by: Rufino Perdomo MD[[id number]] No family history on file Level of Service:98031 MO OFFICE/OUTPATIENT ESTABLISHED LOW MDM 20-29 MIN (GC) Reason for Visit and Comments: Pain [136] Edema [[id number]] Follow-up [436087] Normal [facility] Erroneous Encounteron 2021 Erroneous Encounter [id number] Rebecca Jewell 1985 [facility] Department [place] 03/31/2022 [id number] ERNANDEZ [facility] No family history on file Reason for Visit and Comments: Error (VOID this visit) [77] Normal [facility] CNOVon 02-03-2022 CNOV Office Visit (NMUAMH ) NABILA JEWELL ([id number]) 1985 F Date Time Provider Department 02/03/22 11:00 AM CHAS ROMERO [facility] During your visit today, we recorded the following information about you: Pulse Blood pressure Weight Height 66/minute 117/84 122.7 kg 1.549 m Chas Romero DO 02/03/2022 11:27 AM Signed [facility] Follow up Visit SERVICE DATE: 02/03/2022 PCP: Smiley Urias MD [address] [place] [address] Reason for Evaluation: Consultation requested by Self for an opinion regarding right leg weakness Family/Friend accompanying the patient today: none HPI: This is Ms. Nabila Jewell, a 36 year old female who presents to the [facility] with the chief complaint above. 02/03/2022: She [...] get up after this. She went to [facility] in [place]. She was evaluated and did testing and [...] VIII: He (more content not included)... Normal [facility] NABIL[facility] JEWELL ([id number]) 1985 F Date Time Provider Department 01/30/22 [...] Status:Closed by CHAS ROMERO on 01/30/[address] [facility] MRI KNEE LT WO CONon 01-28- 022 MRI KNEE LT WO CON HISTORY: [...] by: SMILEY CALVILLO Date: 2022-01-28 12:18 Normal [facility] EMG(NEURO/NI)on 01-23-2022 [facility] MG MAMM DIAGNOSTIC 3D GREGORY CA Don 01-22-2022 MG MAMM DIAGNOSTIC 3D GREGORY CAD Patient: NABILA JEWELL. Exam Date: 01/22/2022 : 1985 Gender:F Ordering : DR SMILEY URIAS . Admission #: [id number] Family : Order #: [id number] CLICK HERE TO VIEW EXAM RADIOLOGY REPORT [...] Treatments None Family Cancers None LOCATION: [facility] BREAST COMPOSITION: Scattered areas fibroglandular density. [...] Gamble M.D. on 01/22/2022 at 15:30 Normal [facility] 12[facility]06[facility]2021 [facility] NABILA JEWELL ([id number]) 1985 F Date Time Provider Department 12/06/21 CHAS ROMERO [facility] During your visit today, we recorded the [...] Fully Assessed Reason for Visit: Insurance Authorization [[id number]] Prescriptions as of 12/08/2021 - potassium chloride [...] Encounter Status:Closed by SKY RAPP on 12/06/21 [facility] 11-15-2021 [facility] Telephone (NMUA) NABILA JEWELL ([id number]) 1985 F Date Time Provider Department 11/15/21 [address]AS [address] [facility] During your visit today, we recorded the following information about you: Rosana Shaw 11/15/2021 10:02 AM Addendum Pt requesting Dr. Romero send in C9 to [facility] for EMG. Cecilyiva phone [phone] ext [phone] Kassy PLEASE FAX TO:[phone] Also needs this faxed to [employer] [place], [place] [employer] and [employer]. [facility] Pt will call back with fax numbers. Rosana Seth Shaw Allergies As of Date: 11/15/2021 (No [...] Encounter Status:Closed by ROSANA VALVERDE on 04/03/22 [facility] CNOVon 11-12-2021 CNOV Office Visit (NMUA ) NABILA JEWELL ([id number]) 1985 F Date Time Provider Department 11/12/21 2:00 PM CHAS ROMERO [facility] During your visit today, we recorded the following information about you: Pulse Blood pressure Weight Height 69/minute 120/82 118.6 kg 1.549 m Chas Romero DO 11/12/2021 2:58 PM Signed [facility] New Patient Visit SERVICE DATE: 11/12/2021 PCP: Smiley Urias MD [address] [place] [address] Reason for Evaluation: Consultation requested by Self for an opinion regarding right leg weakness Family/Friend accompanying the patient today: none HPI: This is Ms. Nabila Jewell, a 36 year old female who presents to the [facility] with the chief complaint above. She had an injury at work (March 2021)-she fell and hit her head on a prep table and fell onto her knee. She had difficulty moving to get up after this. She went to [facility] in [place]. She was evaluated and did testing and [...] - FDI (more content not included)... Normal [facility] Javier 10-22-2021 CNPN Telephone (NENMMN) NABILA JEWELL ([id number]) 1985 F Date Time Provider Department 10/22/21 CHAS ROMERO [facility] During your visit today, we recorded the following information about you: Sky Rapp 10/22/2021 10:54 AM Signed Referral, medical records received and scanned in for review. Allergies As of Date: 10/22/2021 (No Known Allergies) Date Reviewed: 06/14/2015 Reviewed by: Marly Fitzpatrick - Fully Assessed Reason for Visit: Received Outside Medical Records [357] Prescriptions as of 10/22/2021 - Hydrochlorothiazide 12.5 [...] Status:Closed by SKY RAPP on 10/22/[address] [facility] CARDIAC MACIE 3-6on 2 CK [Catalytic activity/Vol] 135 U/L Normal 30-135 [facility] Comment on above: Performed By: #### C MREP #### [facility] [address] [place] [address] Dr. Walker Gabriel CK.MB [Mass/Vol] 0.84 ng/mL Normal <=2.37 [facility] Comment on above: Performed By: #### C MREP #### [facility] [address] [address] [address] Walker Gabriel HSTROP 8.5 pg/mL Normal 4.0-35.5 [facility] Comment on above: Result Comment: CUT- OFF POINTS HAVE BEEN ESTABLISHED BASED ON THE FOURTH UNIVERSAL DEFINITIONS OF MYOCARDIAL INFARCTION. THE UPPER REFERENCE LIMIT (URL) OF TROPONIN, DEFINED THE 99TH PERCENTILE OF cTnI DISTRIBUTION IN A REFERENCE POPULATION, HAS BEEN CONFIRMED THE DECISION THRESHOLD FOR [place] DIAGNOSIS. Performed By: #### C MREP #### [facility] [address] [address] [address] Walker Gabriel CARDIAC MACIE ADMITon 022 CK [Catalytic activity/Vol] 114 U/L Normal 30-135 [facility] Comment on above: Performed By: #### T SH, LIPID, CMP, URIC, T7, CRP #### [facility] [address] [place] [address] Dr. Walker Gabriel CK.MB [Mass/Vol] 0.71 ng/mL Normal <=2.37 [facility] Comment on above: Performed By: #### T SH, LIPID, CMP, URIC, T7, CRP #### [facility] [address] [address] [address] Walker Gabriel HSTROP 6.1 pg/mL Normal 4.0-35.5 [facility] Comment on above: Result Comment: CUT- OFF POINTS HAVE BEEN ESTABLISHED BASED ON THE FOURTH UNIVERSAL DEFINITIONS OF MYOCARDIAL INFARCTION. THE UPPER REFERENCE LIMIT (URL) OF TROPONIN, DEFINED THE 99TH PERCENTILE OF cTnI DISTRIBUTION IN A REFERENCE POPULATION, HAS BEEN CONFIRMED THE DECISION THRESHOLD FOR [place] DIAGNOSIS. Performed By: #### T SH, LIPID, CMP, URIC, T7, CRP #### [facility] [address] [place] [address] Dr. Walker Gabriel COLLINS 43.0 ng/mL Normal <=61.5 [facility] Comment on above: Performed By: #### T SH, LIPID, CMP, URIC, T7, CRP #### [facility] [address] [place] [address] Dr. Walker Gabriel CBC AUTO DIFFon 09-06-2021 BASO # 0.0 103/ul Normal 0.0-0.1 [facility] Comment on above: Performed By: #### T SH, LIPID, CMP, URIC, T7, CRP #### [facility] [address] [place] [address] Dr. Walker Gabriel Basophils/100 WBC (Bld) 0.5 % Normal 0.2-2.0 [facility] Comment on above: Performed By: #### T SH, LIPID, CMP, URIC, T7, CRP #### [facility] [address] [place] [address] Dr. Walker Gabriel EO # 0.0 103/ul Normal 0.0-0.7 [facility] Comment on above: Performed By: #### T SH, LIPID, CMP, URIC, T7, CRP #### [facility] [address] [place] [address] Dr. Walker Gabriel Eosinophils/100 WBC (Bld) 0.1 % Critically low 0.9-7.0 [facility] Comment on above: Performed By: #### T SH, LIPID, CMP, URIC, T7, CRP #### [facility] [address] [place] [address] Dr. Walker Gabriel Erythrocyte distribution width (RBC) [Ratio] 12.3 % Normal 11.0-15.0 [facility] Comment on above: Performed By: #### T SH, LIPID, CMP, URIC, T7, CRP #### [facility] [address] [place] [address] Dr. Walker Gabriel Hematocrit (Bld) [Volume fraction] 41.4 % Normal 36.0-48.0 [facility] Comment on above: Performed By: #### T SH, LIPID, CMP, URIC, T7, CRP #### [facility] [address] [place] [address] Dr. Walker Gabriel Hemoglobin (Bld) [Mass/Vol] 13.6 g/dL Normal 12.0-16.0 [facility] Comment on above: Performed By: #### T SH, LIPID, CMP, URIC, T7, CRP #### [facility] [address] [place] [address] Dr. Walker Gabriel IG # 0.02 10e3/ul Normal 0.00-0.03 [facility] Comment on above: Performed By: #### T SH, LIPID, CMP, URIC, T7, CRP #### [facility] [address] [place] [address] Dr. Walker Gabriel IG % 0.2 % Normal 0.0-0.5 [facility] Comment on above: Performed By: #### T SH, LIPID, CMP, URIC, T7, CRP #### [facility] [address] [place] [address] Dr. Walker Gabriel LYMPH # 2.6 103/ul Normal 1.2-3.8 [facility] Comment on above: Performed By: #### T SH, LIPID, CMP, URIC, T7, CRP #### [facility] [address] [address] [address] Walker Gabriel Lymphocytes/100 WBC (Bld) 32.4 % Normal 20.5-60.0 [facility] Comment on above: Performed By: #### T SH, LIPID, CMP, URIC, T7, CRP #### [facility] [address] [place] [address] Dr. Walker Gabriel MANUAL DIFF REQ NO Normal [facility] Comment on above: Performed By: #### T SH, LIPID, CMP, URIC, T7, CRP #### [facility] [address] [place] [address] Dr. Walker Gabriel MCH (RBC) [Entitic mass] 28.8 pg Normal 26.7-34.0 [facility] Comment on above: Performed By: #### T SH, LIPID, CMP, URIC, T7, CRP #### [facility] [address] [place] [address] Dr. Walker Gabriel MCHC (RBC) [Mass/Vol] 32.9 g/dL Normal 29.9-35.2 [facility] Comment on above: Performed By: #### T SH, LIPID, CMP, URIC, T7, CRP #### [facility] [address] [place] [address] Dr. Walker Gabriel MCV (RBC) [Entitic vol] 87.5 fL Normal 81.0-99.0 [facility] Comment on above: Performed By: #### T SH, LIPID, CMP, URIC, T7, CRP #### [facility] [address] [place] [address] Dr. Walker Gabriel MONO # 0.4 103/ul Normal 0.3-0.8 [facility] Comment on above: Performed By: #### T SH, LIPID, CMP, URIC, T7, CRP #### [facility] [address] [place] [address] Dr. Walker Gabriel Monocytes/100 WBC (Bld) 5.0 % Normal 1.7-12.0 [facility] Comment on above: Performed By: #### T SH, LIPID, CMP, URIC, T7, CRP #### [facility] [address] [address] [address] Walker Gabriel NEUT # 5.0 103/ul Normal 1.4-6.5 [facility] Comment on above: Performed By: #### T SH, LIPID, CMP, URIC, T7, CRP #### [facility] [address] [place] [address] Dr. Walker Gabriel Neutrophils/100 WBC (Bld) 61.8 % Normal 43.0-75.0 [facility] Comment on above: Performed By: #### T SH, LIPID, CMP, URIC, T7, CRP #### [facility] [address] [place] [address] Dr. Walker Gabriel Platelet mean volume (Bld) [Entitic vol] 8.4 fL Critically low 9.5-13.5 [facility] Comment on above: Performed By: #### T SH, LIPID, CMP, URIC, T7, CRP #### [facility] [address] [address] [address] Walker Gabriel PLT 347 103/ul Normal 150-450 [facility] Comment on above: Performed By: #### T SH, LIPID, CMP, URIC, T7, CRP #### [facility] [address] [address] [address] Walker Gabriel RBC 4.73 106/ul Normal 4.20-5.40 [facility] Comment on above: Performed By: #### T SH, LIPID, CMP, URIC, T7, CRP #### [facility] [address] [address] [address] Walker Gabriel WBC 8.1 103/ul Normal 4.0-11.0 [facility] Comment on above: Performed By: #### T SH, LIPID, CMP, URIC, T7, CRP #### [facility] [address] [address] [address] Walker Gabriel CRPon 09-06-2021 CRP 0.7 mg/dL Normal <=1.0 [facility] Comment on above: Performed By: #### T SH, LIPID, CMP, URIC, T7, CRP #### [facility] [address] [place] [address] Dr. Walker Gabriel PROF CHEM 8 (BAS METB)on Anion gap [Moles/Vol] 10.2 mmol/L Normal [facility] Comment on above: Performed By: #### T SH, LIPID, CMP, URIC, T7, CRP #### [facility] [address] [place] [address] Dr. Walker Gabriel Calcium [Mass/Vol] 9.0 mg/dL Normal 8.4-10.2 [facility] Comment on above: Performed By: #### T SH, LIPID, CMP, URIC, T7, CRP #### [facility] [address] [place] [address] Dr. Walker Gabriel Chloride [Moles/Vol] 99 mmol/L Normal 98-107 [facility] Comment on above: Performed By: #### T SH, LIPID, CMP, URIC, T7, CRP #### [facility] [address] [place] [address] Dr. Walker Gabriel CO2 [Moles/Vol] 26.5 mmol/L Normal 22.0-30.0 [facility] Comment on above: Performed By: #### T SH, LIPID, CMP, URIC, T7, CRP #### [facility] [address] [place] [address] Dr. Walker Gabriel Creatinine [Mass/Vol] 1.19 mg/dL Critically high 0.52-1.04 [facility] Comment on above: Performed By: #### T SH, LIPID, CMP, URIC, T7, CRP #### [facility] [address] [place] [address] Dr. Walker Gabriel EGFR-AF ESTONIAN >60 Normal >=60 [facility] Comment on above: Performed By: #### T SH, LIPID, CMP, URIC, T7, CRP #### [facility] [address] [place] [address] Dr. Walker Gabriel EGFR-NON AF ESTONIAN 51 mL/min/1.73m2 Critically low >=60 [facility] Comment on above: Performed By: #### T SH, LIPID, CMP, URIC, T7, CRP #### [facility] [address] [address] [address] Walker Gabriel Glucose [Mass/Vol] 105 mg/dL Normal 74-106 [facility] Comment on above: Performed By: #### T SH, LIPID, CMP, URIC, T7, CRP #### [facility] [address] [place] [address] Dr. Walker Gabriel Potassium [Moles/Vol] 3.7 mmol/L Normal 3.4-5.0 [facility] Comment on above: Performed By: #### T SH, LIPID, CMP, URIC, T7, CRP #### [facility] [address] [place] [address] Dr. Walker Gabriel Sodium [Moles/Vol] 132 mmol/L Critically low 137-145 [facility] Comment on above: Performed By: #### T SH, LIPID, CMP, URIC, T7, CRP #### [facility] [address] [place] [address] Dr. Walker Gabriel Urea nitrogen [Mass/Vol] 15.0 mg/dL Normal 7.0-17.0 [facility] Comment on above: Performed By: #### T SH, LIPID, CMP, URIC, T7, CRP #### [facility] [address] [address] [address] Walker Gabriel Urea nitrogen/Creatinine [Mass ratio] 12.6 mg/mg Normal [facility] Comment on above: Performed By: #### T SH, LIPID, CMP, URIC, T7, CRP #### [facility] [address] [place] [address] Dr. Walker Gabriel SED RATE [facility] 2021 SED RATE 49 mm/hr Critically high <=20 [facility] Comment on above: Performed By: #### T SH, LIPID, CMP, URIC, T7, CRP #### [facility] [address] [place] [address] Dr. Walker Gabriel XR CHEST 2 Von [...] by: CANDICE PONCE Date: 2021-09-06 20:51 Normal [facility] Provider Letter FTon 04-09 Provider Letter [facility] [place] 09, 2021 Smiley Urias, [address] [place] [address] [place] [address] Re: NABILA JEWELL Date of : 1985 Thank you for your referral of Nabila Jewell who was seen on consultation for abscess x 2. I have enclosed my consultation note for your review. Sincerely, Edson Davalos MD General Surgery Normal [facility] Facesheeton 04-08-2021 Facesheet [id number] 0CD:127 Normal [facility] Ambulatory Clinical Summaryo n 04-03-2021 Ambulatory Clinical Summary {[id number] }[id number] Normal [facility] Physician Referralon 021 Physician Referral [id number] 0CD:127 Normal [facility] SYPHILIS SCREENING WITH REFL EXon 03-06-2021 SYPHILIS TOTAL AB Non-Reactive Normal NONREACTIVE [facility] Comment on above: Result Comment: No s ignificant level of Treponema pallidum antibody detected. Repeat testing in 2 to 4 weeks may be considered if early infection or incubating syphilis infection is suspected. Performed By: #### S YPHR #### [facility] [address] [place] [address] BILIRUBIN,DIRECTon 1 Bilirubin.indirect [Mass/Vol] 0.1 mg/dL Normal 0.0 - 0.3 [facility] Comment on above: Performed By: #### D BILI #### [address] [id number] CBC AND DIFFERENTIALon 03-05 % AUTOMATED IMMATURE GRAN 0.3 % Normal 0.0 - 0.9 [facility] Comment on above: Result Comment: Cassia ture Granulocyte Count (IG) includes promyelocytes, myelocytes and metamyelocytes but does not include bands. Percent differential counts (%) should be interpreted in the context of the absolute cell counts (cells/L). Performed By: #### C BCDF #### [address] [id number] Basophils (Bld) [#/Vol] 0.02 10*3/uL Normal 0.00 - 0.10 [facility] Comment on above: Performed By: #### C BCDF #### [address] [id number] Basophils/100 WBC (Bld) 0.3 % Normal 0.0 - 2.0 [facility] Comment on above: Performed By: #### C BCDF #### [address] [id number] Eosinophils (Bld) [#/Vol] 0.04 10*3/uL Normal 0.00 - 0.70 [facility] Comment on above: Performed By: #### C BCDF #### [address] [id number] Eosinophils/100 WBC (Bld) 0.6 % Normal 0.0 - 6.0 [facility] Comment on above: Performed By: #### C BCDF #### [address] [id number] Erythrocyte distribution width (RBC) [Ratio] 12.2 % Normal 11.5 - 14.5 [facility] Comment on above: Performed By: #### C BCDF #### [address] [id number] Hematocrit (Bld) [Volume fraction] 38.3 % Normal 36.0 - 46.0 [facility] Comment on above: Performed By: #### C BCDF #### [address] [id number] Hemoglobin (Bld) [Mass/Vol] 12.0 g/dL Normal 12.0 - 16.0 [facility] Comment on above: Performed By: #### C BCDF #### [address] [id number] Lymphocytes (Bld) [#/Vol] 2.33 10*3/uL Normal 1.20 - 4.80 [facility] Comment on above: Performed By: #### C BCDF #### [address] [id number] Lymphocytes/100 WBC (Bld) 35.6 % Normal 13.0 - 44.0 [facility] Comment on above: Performed By: #### C BCDF #### [address] [id number] MCHC (RBC) [Mass/Vol] 31.3 g/dL Low 32.0 - 36.0 [facility] Comment on above: Performed By: #### C BCDF #### [address] [id number] MCV (RBC) [Entitic vol] 93 fL Normal 80 - 100 [facility] Comment on above: Performed By: #### C BCDF #### [address] [id number] Monocytes (Bld) [#/Vol] 0.34 10*3/uL Normal 0.10 - 1.00 [facility] Comment on above: Performed By: #### C BCDF #### [address] [id number] Monocytes/100 WBC (Bld) 5.2 % Normal 2.0 - 10.0 [facility] Comment on above: Performed By: #### C BCDF #### [address] [id number] Neutrophils (Bld) [#/Vol] 3.80 10*3/uL Normal 1.20 - 7.70 [facility] Comment on above: Performed By: #### C BCDF #### [address] [id number] Neutrophils/100 WBC (Bld) 58.0 % Normal 40.0 - 80.0 [facility] Comment on above: Performed By: #### C BCDF #### [address] [id number] Platelets (Bld) [#/Vol] 221 10*3/uL Normal 150 - 450 [facility] Comment on above: Performed By: #### C BCDF #### [address] [id number] RBC 4.13 x10E12/L Normal 4.00 - 5.20 [facility] Comment on above: Performed By: #### C BCDF #### [address] [id number] WBC (Bld) [#/Vol] 6.6 10*3/uL Normal 4.4 - 11.3 [facility] Comment on above: Performed By: #### C BCDF #### [address] [id number] COMPREHENSIVE PANELon 2020 Albumin [Mass/Vol] 3.6 g/dL Normal 3.4 - 5.0 [facility] Comment on above: Performed By: #### C MP #### [address] [id number] ALP [Catalytic activity/Vol] 77 U/L Normal 33 - 110 [facility] Comment on above: Performed By: #### C MP #### [address] [id number] ALT [Catalytic activity/Vol] 20 U/L Normal 7 - 45 [facility] Comment on above: Result Comment: Cony ents treated with Sulfasalazine may generate falsely decreased results for ALT. Performed By: #### C MP #### [address] [id number] Anion gap [Moles/Vol] 10 mmol/L Normal 10 - 20 [facility] Comment on above: Performed By: #### C MP #### [address] [id number] AST [Catalytic activity/Vol] 24 U/L Normal 9 - 39 [facility] Comment on above: Performed By: #### C MP #### [address] [id number] Bilirubin [Mass/Vol] 0.5 mg/dL Normal 0.0 - 1.2 [facility] Comment on above: Performed By: #### C MP #### [address] [id number] Calcium [Mass/Vol] 9.2 mg/dL Normal 8.6 - 10.3 [facility] Comment on above: Performed By: #### C MP #### [address] [id number] Chloride [Moles/Vol] 101 mmol/L Normal 98 - 107 [facility] Comment on above: Performed By: #### C MP #### [address] [id number] Creatinine [Mass/Vol] 0.85 mg/dL Normal 0.50 - 1.05 [facility] Comment on above: Performed By: #### C MP #### [address] [id number] GFR- AM. >60 Normal >60 [facility] Comment on above: Result Comment: CALC ULATIONS OF ESTIMATED GFR ARE PERFORMED USING THE MDRD STUDY EQUATION FOR THE IDMS-TRACEABLE CREATININE METHODS. CLIN CHEM 2007;53:766-72 Performed By: #### C MP #### [address] [id number] GFR-NON AM. >60 Normal >60 [facility] Comment on above: Performed By: #### C MP #### [address] [id number] Glucose [Mass/Vol] 75 mg/dL Normal 74 - 99 [facility] Comment on above: Performed By: #### C MP #### [address] [id number] HCO3 (Bld) [Moles/Vol] 30 mmol/L Normal 21 - 32 [facility] Comment on above: Performed By: #### C MP #### [address] [id number] Potassium [Moles/Vol] 4.1 mmol/L Normal 3.5 - 5.3 [facility] Comment on above: Performed By: #### C MP #### [address] [id number] Protein [Mass/Vol] 7.0 g/dL Normal 6.4 - 8.2 [facility] Comment on above: Performed By: #### C MP #### [address] [id number] Sodium [Moles/Vol] 137 mmol/L Normal 136 - 145 [facility] Comment on above: Performed By: #### C MP #### [address] [id number] Urea nitrogen [Mass/Vol] 21 mg/dL Normal 6 - 23 [facility] Comment on above: Performed By: #### C MP #### [address] [id number] HEPATITIS PANEL,ACUTE (HCFA) on 03-05-2021 HEPATITIS B CORE AB,IGM Non-Reactive Normal NONREACTIVE [facility] Comment on above: Result Comment: Resu lts from patients taking biotin supplements or receiving high-dose biotin therapy should be interpreted with caution due to possible interference with this test. Providers may contact their local laboratory for further information. Performed By: #### H EPA2 #### [facility] [address] [place] [address] HEPATITIS C AB Non-Reactive Normal NONREACTIVE [facility] Comment on above: Result Comment: Resu lts from patients taking biotin supplements or receiving high-dose biotin therapy should be interpreted with caution due to possible interference with this test. Providers may contact their local laboratory for further information. Performed By: #### H EPA2 #### [facility] [address] [place] [id number] HEPATITIS A AB-IGM Non-Reactive Normal NONREACTIVE [facility] Comment on above: Result Comment: Biot in interference may cause falsely decreased results. Patients taking a Biotin dose of up to 5 mg/day should refrain from taking Biotin for 24 hours before sample collection. Providers may contact their local laboratory for further information. Performed By: #### H EPA2 #### [facility] [address] [place] [id number] HEP.B SURFACE AG Non-Reactive Normal NONREACTIVE [facility] Comment on above: Result Comment: Biot in interference may cause falsely decreased results. Patients taking a Biotin dose of up to 5 mg/day should refrain from taking Biotin for 24 hours before sample collection. Providers may contact their local laboratory for further information. Performed By: #### H EPA2 #### [facility] [address] [place] [id number] HIV 1/2 ANTIGEN/ANTIBODY SCR EEN WITH REFLEX TO CONFIRMATIONon 03-05-2021 HIV 1/2 AG/AB SCREEN Non-Reactive Normal NONREACTIVE [facility] Comment on above: Result Comment: HIV Ag/Ab screen is performed using the Siemens [employer] HIV Ag/Ab Combo assay which detects the presence of HIV p24 antigen as well as antibodies to HIV-1 (Group M and O) and HIV-2. . No laboratory evidence of HIV infection. If acute HIV infection is suspected, consider testing for HIV RNA by PCR (viral load). Performed By: #### H IV #### [facility] [address] [place] [id number] SYPHILIS SCREENING WITH REFL EXon 03-05-2021 Lab Specimen Source Normal [facility] Comment on above: Performed By: #### S YPHR #### [facility] [address] [place] [address] Performed By: #### H EPA2 #### [facility] [address] [place] [address] Performed By: #### H IV #### [facility] [address] [place] [id number] HEPATITIS PANEL,ACUTE (HCFA) on 02-29-2020 HEPATITIS A AB-IGM NONREACTIVE Normal NONREACTIVE [facility] Comment on above: Result Comment: Biot in interference may cause falsely decreased results. Patients taking a Biotin dose of up to 5 mg/day should refrain from taking Biotin for 24 hours before sample collection. Providers may contact their local laboratory for further information. Performed By: #### H EPA2 #### [facility] [address] [place] [id number] HEPATITIS C AB NONREACTIVE Normal NONREACTIVE [facility] Comment on above: Result Comment: Resu lts from patients taking biotin supplements or receiving high-dose biotin therapy should be interpreted with caution due to possible interference with this test. Providers may contact their local laboratory for further information. Performed By: #### H EPA2 #### [facility] [address] [place] [id number] HEPATITIS B CORE AB,IGM NONREACTIVE Normal NONREACTIVE [facility] Comment on above: Result Comment: Resu lts from patients taking biotin supplements or receiving high-dose biotin therapy should be interpreted with caution due to possible interference with this test. Providers may contact their local laboratory for further information. Performed By: #### H EPA2 #### [facility] [address] [place] [id number] HEP.B SURFACE AG NONREACTIVE Normal NONREACTIVE [facility] Comment on above: Result Comment: Biot in interference may cause falsely decreased results. Patients taking a Biotin dose of up to 5 mg/day should refrain from taking Biotin for 24 hours before sample collection. Providers may contact their local laboratory for further information. Performed By: #### H EPA2 #### [facility] [address] [place] [id number] HIV ANTIGEN/ANTIBODY SCREENo n 02-29-2020 HIV AG/AB SCREEN NONREACTIVE Normal NONREACTIVE [facility] Comment on above: Result Comment: HIV Ag/Ab screen is performed using the [employer] HIV Ag/Ab Combo assay which detects the presence of HIV p24 antigen as well as antibodies to HIV-1 (Group M and O) and HIV-2. Performed By: #### H IV #### [facility] [address] [place] [address] SYPHILIS SCREENING WITH REFL EXon 02-29-2020 SYPHILIS TOTAL AB NONREACTIVE Normal NONREACTIVE [facility] Comment on above: Result Comment: No s ignificant level of Treponema pallidum antibody detected. Repeat testing in 2 to 4 weeks may be considered if early infection or incubating syphilis infection is suspected. Performed By: #### S YPHR #### [facility] [address] [place] [address] BILIRUBIN,DIRECTon 0 Bilirubin.direct [Mass/Vol] 0.1 mg/dL Normal 0.0 - 0.3 [facility] Comment on above: Performed By: #### D BILI #### [address] [id number] CBCon 02-28-2020 Erythrocyte distribution width (RBC) [Ratio] 12.6 % Normal 11.5 - 14.5 [facility] Comment on above: Performed By: #### C BC #### [address] [id number] Hematocrit (Bld) [Volume fraction] 38.4 % Normal 36.0 - 46.0 [facility] Comment on above: Performed By: #### C BC #### [address] [id number] Hemoglobin (Bld) [Mass/Vol] 12.5 g/dL Normal 12.0 - 16.0 [facility] Comment on above: Performed By: #### C BC #### [address] [id number] MCHC (RBC) [Mass/Vol] 32.6 g/dL Normal 32.0 - 36.0 [facility] Comment on above: Performed By: #### C BC #### [address] [id number] MCV (RBC) [Entitic vol] 88 fL Normal 80 - 100 [facility] Comment on above: Performed By: #### C BC #### [address] [id number] Platelets (Bld) [#/Vol] 350 10*3/uL Normal 150 - 450 [facility] Comment on above: Performed By: #### C BC #### [address] [id number] RBC (Bld) [#/Vol] 4.34 x10E12/L Normal 4.00 - 5.20 [facility] Comment on above: Performed By: #### C BC #### [address] [id number] WBC (Bld) [#/Vol] 5.6 10*3/uL Normal 4.4 - 11.3 [facility] Comment on above: Performed By: #### C BC #### [address] [id number] COMPREHENSIVE PANELon 2019 Albumin [Mass/Vol] 4.1 g/dL Normal 3.4 - 5.0 [facility] Comment on above: Performed By: #### C MP #### [address] [id number] ALP [Catalytic activity/Vol] 105 U/L Normal 33 - 110 [facility] Comment on above: Performed By: #### C MP #### [address] [id number] ALT [Catalytic activity/Vol] 24 U/L Normal 7 - 45 [facility] Comment on above: Result Comment: Cony ents treated with Sulfasalazine may generate falsely decreased results for ALT. Performed By: #### C MP #### [address] [id number] Anion gap [Moles/Vol] 10 mmol/L Normal 10 - 20 [facility] Comment on above: Performed By: #### C MP #### [address], [place] [id number] AST [Catalytic activity/Vol] 22 U/L Normal 9 - 39 [facility] Comment on above: Performed By: #### C MP #### [address] [id number] Bilirubin [Mass/Vol] 0.4 mg/dL Normal 0.0 - 1.2 [facility] Comment on above: Performed By: #### C MP #### [address] [id number] Calcium [Mass/Vol] 9.1 mg/dL Normal 8.6 - 10.3 [facility] Comment on above: Performed By: #### C MP #### [address] [id number] Chloride [Moles/Vol] 101 mmol/L Normal 98 - 107 [facility] Comment on above: Performed By: #### C MP #### [address] [id number] Creatinine [Mass/Vol] 0.79 mg/dL Normal 0.50 - 1.05 [facility] Comment on above: Performed By: #### C MP #### [address] [id number] GFR- AM. >60 Normal >60 [facility] Comment on above: Result Comment: CALC ULATIONS OF ESTIMATED GFR ARE PERFORMED USING THE MDRD STUDY EQUATION FOR THE IDMS-TRACEABLE CREATININE METHODS. CLIN CHEM 2007;53:766-72 Performed By: #### C MP #### [address] [id number] GFR-NON AM. >60 Normal >60 [facility] Comment on above: Performed By: #### C MP #### [address] [id number] Glucose [Mass/Vol] 90 mg/dL Normal 74 - 99 [facility] Comment on above: Performed By: #### C MP #### [address], [place] [id number] HCO3 (Bld) [Moles/Vol] 28 mmol/L Normal 21 - 32 [facility] Comment on above: Performed By: #### C MP #### [address] [id number] Potassium [Moles/Vol] 4.4 mmol/L Normal 3.5 - 5.3 [facility] Comment on above: Performed By: #### C MP #### [address] [id number] Protein [Mass/Vol] 8.1 g/dL Normal 6.4 - 8.2 [facility] Comment on above: Performed By: #### C MP #### [address] [id number] Sodium [Moles/Vol] 135 mmol/L Low 136 - 145 [facility] Comment on above: Performed By: #### C MP #### [address] [id number] Urea nitrogen [Mass/Vol] 21 mg/dL Normal 6 - 23 [facility] Comment on above: Performed By: #### C MP #### [address] [id number] SYPHILIS SCREENING WITH REFL EXon 02-28-2020 Lab Specimen Source Normal [facility] Comment on above: Performed By: #### S YPHR #### [facility] [address] [place] [address] Performed By: #### H IV #### [facility] [address] [place] [address] Performed By: #### H EPA2 #### [facility] [address] [place] [address] APTTon 08-13-2017 aPTT 27.9 s Normal 23.2-34.4 [facility] Comment on above: Result Comment: Perf ormed at [place] [address] [place] [address] [phone] Performed By: #### C DP, PT, PTT, BNP, BMP, TROPI ####[address] [place] [address] Basic Metabolic Profon 08-13 (cont.) Normal [facility] Comment on above: Result Comment: Aver age GFR for 30-39 years old: 107 mL/min/1.73sq mChronic Kidney Disease: <60 mL/min/1.73sq mKidney failure: <15 mL/min/1.73sq meGFR calculated using average adult body mass. Additional eGFR calculator available at:http://www.[employer]/multiple_crcl_2012.htm Performed By: #### C DP, PT, PTT, BNP, BMP, TROPI ####[address] [place] [address] Anion gap 11 mmol/L Normal 9-17 [facility] Comment on above: Performed By: #### C DP, PT, PTT, BNP, BMP, TROPI ####[address] [place] [address] BUN/CRE Ratio 21 High 9-20 [facility] Comment on above: Performed By: #### C DP, PT, PTT, BNP, BMP, TROPI ####[address] [place] [address] Calcium 9.6 mg/dL Normal 8.6-10.4 [facility] Comment on above: Performed By: #### C DP, PT, PTT, BNP, BMP, TROPI ####[address] [place] [address] Chloride 96 mmol/L Low 98-107 [facility] Comment on above: Performed By: #### C DP, PT, PTT, BNP, BMP, TROPI ####[address] [place] [address] CO2 31 mmol/L Normal 20-31 [facility] Comment on above: Performed By: #### C DP, PT, PTT, BNP, BMP, TROPI ####[address] [place] [address] Creatinine 0.73 mg/dL Normal 0.50-0.90 [facility] Comment on above: Performed By: #### C DP, PT, PTT, BNP, BMP, TROPI ####[address] [place] [address] eGFR (non-black) mL/min/{1.73_m2} Normal >60 [facility] Comment on above: Performed By: #### C DP, PT, PTT, BNP, BMP, TROPI ####[address] [place] [address] Glucose mass conc 101 mg/dL High 70-99 [facility] Comment on above: Performed By: #### C DP, PT, PTT, BNP, BMP, TROPI ####[address] [place] [address] Potassium molar conc 3.2 mmol/L Low 3.7-5.3 [facility] Comment on above: Performed By: #### C DP, PT, PTT, BNP, BMP, TROPI ####[address] [place] [address] Sodium 138 mmol/L Normal 135-144 [facility] Comment on above: Performed By: #### C DP, PT, PTT, BNP, BMP, TROPI ####[address] [place] [address] Staging: Normal [facility] Comment on above: Result Comment: Stag e 1: Some kidney damage normal GFRStage 2: Mild kidney damage GFR 60-89Stage 3: Moderate kidney damage GFR 30-59Stage 4: Severe kidney damage GFR 15-29Stage 5: Severe kidney damage GFR <15ESRD - chronic treatment by dialysis or transplantPerformed at [address] [place] [id number] Performed By: #### C DP, PT, PTT, BNP, BMP, TROPI ####[address] [place] [address] Urea nitrogen 15 mg/dL Normal 6-20 [facility] Comment on above: Performed By: #### C DP, PT, PTT, BNP, BMP, TROPI ####[address] [place] [id number] Brain Natri. Peptideon 08-13 BNP pg/mL Normal <300 [facility] Comment on above: Result Comment: Pro- BNP results cannot be compared to BNP results. Performed By: #### C DP, PT, PTT, BNP, BMP, TROPI ####[address] [place] [id number] BNP Normal [facility] Comment on above: Result Comment: Pro- BNP Reference Range:Rule Out: <300Grey Zone: Age <50 300-450 Age 50-75 300-900 Age >75 300-1800Usually represents mild to moderate HF but other cardiopulmonary causes cannot be ruled out.Rule In: Age <50 >450 Age 50-75 >900 Age >75 >1800Performed at [address] [place] [id number] Performed By: #### C DP, PT, PTT, BNP, BMP, TROPI ####[address] [place] [address] CBC with Diffon 08-13-2017 Abs. Basophil 0.00 k/uL Normal 0.0-0.2 [facility] Comment on above: Result Comment: Perf ormed at [address] [place] [id number] Performed By: #### C DP, PT, PTT, BNP, BMP, TROPI ####[address] [place] [id number] Abs.Neutrophil (Seg) 4.50 k/uL Normal 1.8-7.7 [facility] Comment on above: Performed By: #### C DP, PT, PTT, BNP, BMP, TROPI ####[address] , [facility] Basophils/100 WBC Auto (Bld) 0 % Normal 0-2 [facility] Comment on above: Performed By: #### C DP, PT, PTT, BNP, BMP, TROPI ####[address] [place] [address] Eosinophils 0.20 10*3/uL Normal 0.0-0.4 [facility] Comment on above: Performed By: #### C DP, PT, PTT, BNP, BMP, TROPI ####[address] , [facility] Eosinophils/100 leukocytes 2 % Normal 0-8 [facility] Comment on above: Performed By: #### C DP, PT, PTT, BNP, BMP, TROPI ####[address] [place] [address] Erythrocyte distribution width Auto Ratio (RBC) 15.0 % Normal 12.1-15.2 [facility] Comment on above: Performed By: #### C DP, PT, PTT, BNP, BMP, TROPI ####[address] [place] [address] Erythrocytes (RBC) 4.75 10*6/uL Normal 4.0-5.2 [facility] Comment on above: Performed By: #### C DP, PT, PTT, BNP, BMP, TROPI ####[address] [place] [address] Hematocrit (HCT) 41.0 % Normal 36-46 [facility] Comment on above: Performed By: #### C DP, PT, PTT, BNP, BMP, TROPI ####[address] , [facility]83 Hemoglobin mass conc (Bld) 13.7 g/dL Normal 12.0-16.0 [facility] Comment on above: Performed By: #### C DP, PT, PTT, BNP, BMP, TROPI ####[address] [place] [address] Lymphocytes 2.60 10*3/uL Normal 1.0-4.8 [facility] Comment on above: Performed By: #### C DP, PT, PTT, BNP, BMP, TROPI ####[address] , [facility]83 Lymphocytes/100 leukocytes 34 % Normal 24-44 [facility] Comment on above: Performed By: #### C DP, PT, PTT, BNP, BMP, TROPI ####[address] , [facility] MCH 28.8 pg Normal 26-34 [facility] Comment on above: Performed By: #### C DP, PT, PTT, BNP, BMP, TROPI ####[address] , [facility] MCHC mass conc (RBC) 33.4 g/dL Normal 31-37 [facility] Comment on above: Performed By: #### C DP, PT, PTT, BNP, BMP, TROPI ####[address] [place] [address] MCV 86.3 fL Normal 80-100 [facility] Comment on above: Performed By: #### C DP, PT, PTT, BNP, BMP, TROPI ####[address] [place] [address] Monocytes 0.40 10*3/uL Normal 0.0-1.0 [facility] Comment on above: Performed By: #### C DP, PT, PTT, BNP, BMP, TROPI ####[address] [place] [address] Monocytes/100 leukocytes 6 % Normal 0-12 [facility] Comment on above: Performed By: #### C DP, PT, PTT, BNP, BMP, TROPI ####[address] [place] [address] Neutrophil (Seg) 58 % Normal 36-66 [facility] Comment on above: Performed By: #### C DP, PT, PTT, BNP, BMP, TROPI ####[address] [place] [address] Platelet mean volume (PMV) 6.7 fL Normal 6.0-12.0 [facility] Comment on above: Performed By: #### C DP, PT, PTT, BNP, BMP, TROPI ####[address] [place] [address] Platelets 322 10*3/uL Normal 140-450 [facility] Comment on above: Performed By: #### C DP, PT, PTT, BNP, BMP, TROPI ####[address] [place] [address] WBC (Leukocytes) 7.7 10*3/uL Normal 3.5-11.0 [facility] Comment on above: Performed By: #### C DP, PT, PTT, BNP, BMP, TROPI ####[address] [place] [address] Auto Diff Performed NOT REPORTED Normal [facility] Comment on above: Performed By: #### C DP, PT, PTT, BNP, BMP, TROPI ####[address] [place] [address] Erythrocyte morphology NOT REPORTED Normal [facility] Comment on above: Performed By: #### C DP, PT, PTT, BNP, BMP, TROPI ####[address] [place] [address] Erythrocytes (RBC) NOT REPORTED Normal [facility] Comment on above: Performed By: #### C DP, PT, PTT, BNP, BMP, TROPI ####[address] [place] [address] Granulocytes/100 WBC (Bld) NOT REPORTED Normal 0.00-0.30 [facility] Comment on above: Performed By: #### C DP, PT, PTT, BNP, BMP, TROPI ####[address] [place] [address] Immature granulocytes #/vol (Bld) NOT REPORTED Normal 0 [facility] Comment on above: Performed By: #### C DP, PT, PTT, BNP, BMP, TROPI ####[address] [place] [address] Platelets NOT REPORTED Normal [facility] Comment on above: Performed By: #### C DP, PT, PTT, BNP, BMP, TROPI ####[address] [place] [address] WBC Morphology NOT REPORTED Normal [facility] Comment on above: Performed By: #### C DP, PT, PTT, BNP, BMP, TROPI ####[address] [place] [address] ED Provider Noteon 8 HIM IP Note OR Dining Services Manager Normal [facility] PTon 08-13-2017 INR Coag RelTime (PPP) 0.9 {INR} Normal 0.9-1.2 [facility] Comment on above: Result Comment: Perf ormed at [address] [place] [address] Performed By: #### C DP, PT, PTT, BNP, BMP, TROPI ####[address] [place] [address] Prothrombin time (PT) Coag time (PPP) 9.7 s Normal 9.7-12.2 [facility] Comment on above: Performed By: #### C DP, PT, PTT, BNP, BMP, TROPI ####[address] [place] [address] Troponinon 08-13-2017 Troponin I.cardiac mass conc Normal [facility] Comment on above: Result Comment: Refe rence Range: <0.03 Within reference range. 0.03-0.09 Possible myocardial damage.Repeat at appropriate intervals to rule out chronic elevation. >= 0.10 Indicative of myocardial damage.Patients with high levels of Biotin oral intake (i.e >5mg/day) may have falsely decreased Troponin T levels. Samples collected within 8 hours of biotin intake may require additional information for diagnosis.Performed at [address] [place] [id number] [phone]. Performed By: #### C DP, PT, PTT, BNP, BMP, TROPI ####[address] [place] [id number] Troponin T.cardiac mass conc ug/L Normal <0.03 [facility] Comment on above: Result Comment: Trop onin T results cannot be compared to Troponin-I results. Performed By: #### C DP, PT, PTT, BNP, BMP, TROPI ####[address] [place] [address] XR CHEST PORTABLEon 08-13-19 18 XR CHEST [...] by:RACHEL Haskinsigned by:Sruthi Mo MD08/13/17inal result Normal [facility] Vital Signs Date Time Vital Sign Value Performing Clinician Facility 02-03-2022 10:50-0400 Body height 154.9 cm Chas Romero DO Work Phone: [facility] 02-03-2022 10:50-0400 Body weight 122.7 kg Chas Romero DO Work Phone: [facility] 02-03-2022 10:50-0400 Diastolic blood pressure 84 mm[Hg] Chas Romero DO Work Phone: [facility] 02-03-2022 10:50-0400 Heart rate 66 /min Chas Romero DO Work Phone: [facility] 02-03-2022 10:50-0400 SaO2% (BldA) [Mass fraction] 98 % Chas Romero DO Work Phone: [facility] 02-03-2022 10:50-0400 Systolic blood pressure 117 mm[Hg] Chas Romero DO Work Phone: [facility] 01-01-2022 11:45-0400 Body height 155.57 cm Rolando Miracle Other [employer] Other 01-01-2022 11:45-0400 Body mass index (BMI) [Ratio] 42.12 kg/m2 Rolando Miracle Other [employer] Other 01-01-2022 11:45-0400 Body weight 101.97 kg Rolando Miracle Other [employer] Other 11-13-2021 10:45-0400 Body height 155.57 cm Rolando Miracle Other [employer] Other 11-13-2021 10:45-0400 Body mass index (BMI) [Ratio] 42.12 kg/m2 Rolando Miracle Other [employer] Other 11-13-2021 10:45-0400 Body weight 101.97 kg Rolando Miracle Other [employer] Other 11-12-2021 13:49-0400 Body height 154.9 cm Chas Romero DO Work Phone: [facility] 11-12-2021 13:49-0400 Body weight 118.62 kg Chas Romero DO Work Phone: [facility] 11-12-2021 13:49-0400 Diastolic blood pressure 82 mm[Hg] Chas Romero DO Work Phone: [facility] 11-12-2021 13:49-0400 Heart rate 69 /min Chas Romero DO Work Phone: [facility] 11-12-2021 13:49-0400 SaO2% (BldA) [Mass fraction] 100 % Chas Romero DO Work Phone: [facility] 11-12-2021 13:49-0400 Systolic blood pressure 120 mm[Hg] Chas Romero DO Work Phone: [facility] 09-18-2021 11:15-0400 Body height 155.57 cm Rolando Turner Other [employer] Other 09-18-2021 11:15-0400 Body mass index (BMI) [Ratio] 42.12 kg/m2 Rolando Turner Other [employer] Other 09-18-2021 11:15-0400 Body weight 101.97 kg Rolando Turner Other [employer] Other 07-24-2021 11:15-0500 Body height 155.57 cm Rolando Turner Other [employer] Other 07-24-2021 11:15-0500 Body mass index (BMI) [Ratio] 47.03 kg/m2 Rolando Turner Other [employer] Other 07-24-2021 11:15-0500 Body weight 113.85 kg Rolando Turner Other [employer] Other 06-12-2021 11:00-0500 Body height 155.57 cm Rolando Miracle Other [employer] Other 06-12-2021 11:00-0500 Body mass index (BMI) [Ratio] 46.85 kg/m2 Rolando Miracle Other [employer] Other 06-12-2021 11:00-0500 Body weight 113.4 kg Rolando Miracle Other [employer] Other 05-15-2021 14:00-0500 Body height 155.57 cm Rolando Miracle Other [employer] Other 05-15-2021 14:00-0500 Body mass index (BMI) [Ratio] 42.12 kg/m2 Rolando Miracle Other [employer] Other 05-15-2021 14:00-0500 Body weight 101.97 kg Rolando Miracle Other [employer] Other 04-17-2021 10:30-0400 Body height 155.57 cm Rolando Miracle Other [employer] Other 04-17-2021 10:30-0400 Body mass index (BMI) [Ratio] 42.12 kg/m2 Rolando Miracle Other [employer] Other 04-17-2021 10:30-0400 Body weight 101.97 kg Rolando Miracle Other [employer] Other Encounters Encounter Date Encounter Type Care Provider Facility Start: 02-10-2024 ambulatory Luiz Garsia acility:[facility] Start: 07-13-2023 End: 07-14-2023 ambulatory Fabián Archer MD Facility:[facility] Start: 06-15-2023 End: 06-16-2023 ambulatory Fabián Archer MD Facility:[facility] Start: 04-27-2023 End: 04-28-2023 ambulatory Fabián Archer MD Facility:[facility] Start: 03-04-2023 ambulatory [facility] Start: 02-23-2023 ambulatory [facility] Start: 01-12-2023 ambulatory [facility] Start: 01-01-2023 End: 01-01-2023 ambulatory [facility] Start: 12-01-2022 ambulatory [facility] Start: 09-29-2022 ambulatory [facility] Start: 09-15-2022 ambulatory [facility] Start: 09-15-2022 Encounter for other preprocedural examination [facility] Start: 08-22-2022 End: 08-23-[address] SMILEY URIAS . Facility:[facility] Start: 08-21-2022 ambulatory CAROLE PONCE [facility] Start: 08-06-2022 ambulatory PARRISH MCDONOUGH [facility] Start: 07-02-2022 ambulatory PASCUAL [facility] Start: 05-15-2022 End: 05-15-2022 ambulatory [facility] Start: 05-12-2022 End: 05-13-2022 ambulatory [facility] Start: 05-05-2022 End: 05-06-2022 ambulatory [facility] Start: 04-30-2022 ambulatory PASCUAL [facility] Start: 04-18-2022 End: 04-19-[address] SMILEY URIAS . Facility:[facility] Start: 04-17-2022 ambulatory [facility] Start: 04-03-2022 End: 04-03-[address] [facility] Start: 04-01-2022 End: 04-01-2022 ambulatory MARISA [facility] Start: 03-06-2022 ambulatory SMILEY URIAS Facility:[facility] Start: 02-03-2022 End: 02-03-2022 ambulatory SMILEY URIAS Facility:[facility] Start: 02-03-2022 End: 02-03-2022 Patient encounter procedure Chas Heather DO Work Phone: Neurology Comment on above: Right leg weakness ( Primary Dx) Start: 01-31-2022 End: 02-22-[address] SMILEY URIAS . Facility: Start: 01-30-2022 Telephone encounter Chas Za le DO Work Phone: Neurology Comment on above: Results Start: 01-27-2022 End: 01-28-[address] SMILEY URIAS . Facility: Start: 01-23-2022 End: 01-23-2022 ambulatory SMILEY URIAS Facility:[facility] Start: 01-23-2022 End: 01-23-2022 ambulatory Emg 400) Work Phone: Neurology Comment on above: EMG Start: 01-23-2022 End: 01-23-2022 Patient encounter procedure Emg 2 Neur Rej (Max Weight: 400) Work Phone: [facility] Start: 01-22-2022 End: 01-23-[address] SMILEY URIAS . Facility:[facility] Start: 01-13-2022 End: 01-14-2022 ambulatory NUZHAT ARZOLA Facility:[facility] Start: 01-01-2022 End: 01-01-2022 ambulatory Rolando Turner Other [employer] Other Start: 01-01-2022 Office outpatient vi sit 15 minutes [facility] Start: 12-06-2021 Telephone encounter Chas laws DO Work Phone: Neurology Comment on above: Insurance Authorizat ion Start: 11-13-2021 End: 11-13-2021 ambulatory Rolando Turner Other [employer] Other Start: 11-13-2021 Office outpatient vi sit 15 minutes Rolando Turner [facility] Start: 11-12-2021 End: 11-12-2021 ambulatory CHAS ROMERO Facility:[facility] Start: 11-12-2021 End: 11-12-2021 Patient encounter procedure Chas Romero DO Work Phone: Neurology Comment on above: Right leg weakness ( Primary Dx) Start: 10-22-2021 Telephone encounter Chas laws DO Work Phone: Neurology Comment on above: Received Outside [employer] [facility] Start: 10-02-2021 End: 10-16-[address] SMILEY URIAS . Facility: Start: 09-30-2021 End: 09-30-2021 ambulatory Rolando Turner Other [employer] Other Start: 09-30-2021 Telephone encounter Rolando POWELL [facility] Start: 09-24-2021 End: 09-26-2021 ambulatory UNKNOWN PROVIDER Facility:[facility] Start: 09-18-2021 End: 09-18-2021 ambulatory Rolando Turner Other [employer] Other Start: 09-18-2021 Office outpatient vi sit 15 minutes Rolando Turner [facility] Start: 09-06-2021 End: 09-07-2021 ambulatory PRETTY BEST Facility: Start: 07-24-2021 End: 07-24-2021 ambulatory Rolando Turner Other [employer] Other Start: 07-24-2021 Office outpatient vi sit 15 minutes Rolando Turner [facility] Start: 06-12-2021 End: 06-12-2021 ambulatory Rolando Turner Other [employer] Other Start: 06-12-2021 Office outpatient vi sit 15 minutes Rolando Turner [facility] Start: 05-15-2021 End: 05-15-2021 ambulatory Rolando Turner Other [employer] Other Start: 05-15-2021 Office outpatient vi sit 15 minutes Rolando Turner [facility] Start: 04-17-2021 Office outpatient ne w 45 minutes Rolando Turner [facility] Start: 08-13-2017 End: 08-13-2017 Emergency department patient visit EDSON VILLEGAS [facility] Procedures Date Procedure Procedure Detail Performing [...] EDSON ZAMAN Start: 08-13-2017 INSERT PERIPHERAL IV [place] CODY VILLEGAS Start: 08-13-2017 TELEMETRY MONITORING ALPESH CODY VILLEGAS Start: 08-13-2017 VITAL SIGNS EDSON ZAMAN Plan of Treatment Date Care Activity Detail Author Start: 02-27-2022 Influenza vaccination [facility] Start: 09-01-2015 HPV TESTING HPV TESTING [facility] Start: 2006 PAP TESTING PAP TESTING [facility] Start: 2004 Urine microalbumin profile DTAP,TDAP,TD (1 - Tdap) [facility] Start: 09-01-2003 ANNUAL PCP TEAM DBA CAIN DISEASE VISIT ANNUAL PCP TEAM CHRONIC DISEASE VISIT [facility] Start: 09-01-2003 BP CONTROLLED (<130/80) BP CON TROLLED (<130/80) [facility] Start: 09-01-2003 HEPATITIS C SCREENING HEPATITIS C SC MARYLU [facility] Start: 09-01-2003 HIV SCREENING HIV SCREENING [facility] Start: 1997 Adult depression screening assessment DEPRESSION SCREENING [facility] Start: 1990 COVID-19 VACCINE (#1) COVID-19 VACCI NE (#1) [facility] Start: 1990 COVID-19 VACCINE (1) COVID-19 VACCIN E (1) [facility] Start: 03-03-1986 COVID-19 VACCINE (#1) COVID-19 VACCI NE (#1) [facility] Start: 1985 HEPATITIS B (1 of 3 - 3-dose series) HEPATITIS B (1 of 3 - 3-dose series) [facility] End: 11-12-2022 EMG(NEURO/NI) EMG(NEURO/NI) EMG Routine Right leg weakness 1 Occurrences starting 11/12/2021 until 11/12/2022 [facility] Work Phone: Comment on above: 1 Occurrences starti ng 11/12/2021 until 11/12/2022 [facility] Payers Date Payer Category Payer Self-pay 2022 Medicaid [id number] 2021 Unknown [facility] [id number] 2021-Present [phone] [facility] [place] [address] [facility] [id number] 2021 Unknown [id number] [id number] 2021 Unknown [id number] 2021 Worker's Compensation [id number] 2021 Worker's Compensation 2020 Medicaid [employer] 2020-Present [phone] [address] [place] [address] Medicaid 2020 Medicaid [employer] [id number] 2020-Present [phone] [address] [place] [address] Medicaid [id number] 2014 Unknown [id number] 1985 Unknown [id number] [id number] 32 1985 Unknown [id number] 2.16.840.1.807874.3.579.2.6 47 1985 Unknown [id number] 2.16.840.1.229412.3.579.2.5 93 1985 Unknown [id number] 2.16.840.1.719535.3.579.2.5 93 1985 Unknown [id number] 2.16.840.1.308821.3.579.2.5 93 1985 Unknown [id number] 2.16.840.1.335612.3.579.2.5 93 1985 Unknown [id number] 2.16.840.1.235777.3.579.2.5 93 1985 Unknown [id number] 2.16.840.1.081233.3.579.2.5 93 1985 Unknown [id number] 2.16.840.1.618614.3.579.2.5 93 1985 Unknown [id number] 2.16.840.1.524165.3.579.2.5 93 1985 Unknown [id number] 2.16.840.1.090477.3.579.2.1 96 1985 Unknown [id number] 2.16.840.1.705925.3.579.2.1 1985 Unknown [id number] 2.16.840.1.248711.3.579.2.1 96 1959 Medicaid [id number] 1959 Unknown [id number] [id number] Unknown [id number] [id number] 31 Social History Date Type Detail Facility Start: 09-29-2014 Tobacco smoking stat us NMIS Smokes tobacco daily [facility] End: 08-15-2019 History of tobacco use Cigarette Smoker [facility] Start: 09-29-2014 End: 02-03-2022 Cigarettes smoked current (pack per day) - Reported 0.5 [facility] Start: 09-29-2014 End: 02-03-2022 Tobacco use and exposure Smokeless tobacco non-user [facility] Start: 03-02-2015 End: 02-03-2022 Alcohol intake Current non-drinker of alcohol (finding) [facility] Start: 1985 Sex Assigned At Not on file [facility] Start: 11-12-2021 End: 02-03-2022 Tobacco smoking status NMIS Ex-smoker [facility] End: 08-15-2019 History of tobacco use Current smoker [facility] Start: 11-02-2021 End: 02-03-2022 Exposure to SARS-CoV-2 (event) Not sure [facility] Sex Assigned At Sex Assigned At [facility] [employer] Other Clinical Notes 04-03-2021 to 03-04-2023 Chas [...] 1 month she will likely be at [facility] and then will be released for work either with permanent restrictions or unrestricted depending upon how she feels. She has exhausted conservative care at this point. This patient was seen and examined in the presence of Dr. Cesar Escalante resident in physical medicine and rehabilitation. [facility] 02-23-2023 Note Attestation signed by Jenny [...] improve Chinedu Palacios MD Orthopedic Surgery, PGY-4 [facility] Pager: [phone] 02/23/23 2:00 PM This note was created [...] be an additional personal documentation from me. [facility] 01-12-2023 Note Attestation signed by Jenny [...] be an additional personal documentation from me. [facility] 01-02-2023 Note I called and spoke t o the patient for a discharge follow up call following her procedure. The patient is doing well at home. She is taking ASA per orders. She denies any issues with her surgical dressing. I confirmed with the patient that she has a follow up appointment with Dr. Holley. [facility] 01-01-2023 Note Patient: Nabila cohn Procedure Summary Date: 01/01/23 Room / Location: [address] OR Anesthesia Start: 09 Anesthesia Stop: [...] no known notable events for this encounter. [facility] 01-01-2023 Note Airway Date/Time: 01/01/2023 9:16 AM Urgency: elective Airway not difficult General Information and Staff Patient location during procedure: OR Anesthesiologist: Han Aguiar MD Resident/[employer]AF[employer] ETCH OPERATOR/CAA: TANO Bonner Performed: other anesthesia staff Learner [...] 1 Number of other approaches attempted: 0 [facility] 01-01-2023 Note Patient: Nabila cohn Procedure Information Date/Time: 01/01/23929 Procedures: KNEE ARTHROSCOPY WITH (Left: Knee) SAUCERIZATION OF DISCOID MENISCUS AND CHONDROPLASTY OF TROCHLEA (Left: Knee) Location: [facility] OR / [facility] OR Surgeons: Jenny Holley MD Echo complete W/O contrast Order: [id number] Narrative ?Left Ventricle: Systolic function is normal [...] 09:51 Last Resulted: 07/12/19 12:35 Received From: [facility] Result Received: 03/31/22 20:06 View Encounter ??? 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 Additional Equipment Requests [facility] 12-09-2022 Note Called to confirm ap pointment with dietitian scheduled for 12/10; pt request to cancel appointment at this time. [facility] 12-01-2022 Note Attestation signed by Pascual [...] a 37 y.o. female who presents to [facility] today for [facility] post-concussion syndrome follow up HPI: [...] by mouth in (more content not included)... [facility] 09-29-2022 Note Attestation signed by Pascual [...] combination - Medication refill was given Erika Damon MS3 [facility] 09-15-2022 Note Orthopedic Surgery Subjective Chief complaint: Chief Complaint Patient presents with Left Knee - Pain 09/15/22 Nabila Jewell is a 37 year old female who presents for follow up evaluation of her left knee. The pain is unchanged and she would like to undergo surgery. 08/22/2022: Conservative measures have not provided medical terminologist relief, seen today with complaints of left [...] -Patient reports conservative measures are not providing medical terminologist relief for left knee pain. She would like to undergo surgical repair - Consent for left knee arthroscopy has been obtained -Plan L knee chondroplasty trochlea and partial lateral meniscectomy [facility] 08-21-2022 Note Orthopedic Surgery Subjective Chief [...] patient's left knee was brought in from [facility] on a CD disc that was [...] -Patient reports conservative measures are not providing medical terminologist relief in regard to her left knee. Refer to Dr Holley for opinion. [facility] 08-06-2022 Note Adult Nutrition Asse ssment [...] Needs: Needs based on: IBW Calorie Needs: 7219-9975 kcal/day (25-30 kcal/kg) Protein Needs: 65 g/day [...] to 2000 mg/day -Wt loss 1-2 lb/wk Residential Goals: -Wt loss 10% Pt scheduled follow-up appointment with RD for December 10 @ 11 am. Encouraged pt to check with insurance for coverage prior to appointment. Time Spent With Pt: 10:00 - 11:[address] [facility] 07-31-2022 Note Called pt to confirm appointment with RD on 08/06/22. She is interested in attending appointment - fax sent to primary care physician (Dr. Urias) and requested for referral with nutrition related diagnosis. [facility] 07-02-2022 Note Subjective Patient ID: Nabila Jewell is a 36 y.o. female. Headache Leg Pain this patient is a 36-year-old female who sustained a work-related head injury. She continues with postconcussive syndrome. At her last visit we did start her on nabumetone been helping her headaches. They lessen the intensity. She continues with physical therapy here at [facility]. She has not yet been returning to [...] Additional Comments: Seen on medical student today [facility] 05-15-2022 Note Attestation signed by Rufino [...] patient's left knee was brought in from [facility] on a CD disc that was [...] evaluation Sixto Durham MD PGY-4 Orthopedic Surgery [facility] By using the attestations below, the [...] be an additional personal documentation from me. [facility] 04-30-2022 Note ASSESSMENT/PLAN: Nabila was seen [...] a 36 y.o. female who presents to [facility] today for Workers Compensation [...] strength 5/5, R (more content not included)... [facility] 04-30-2022 Note I saw and evaluated the patient, participating in the mc portions of the service. I reviewed the resident???s note. I agree with the resident???s findings and plan. Pascual Uribe MD [facility] 04-17-2022 Note Attestation signed by Marisa Carter PhD at 04/17/2022 7:11 PM I supervised all aspects of this evaluation. [facility] OUT[facility] - NEUROPSYCHOLOGY [address] [place] [address] Ms. Nabila Jewell was seen via [employer] and then Telephone to discuss the neuropsychological evaluation. We discussed the results, their implications, applicable diagnoses, and recommendations. All questions were answered. At this time, she is discharged from the Neuropsychology service. A copy of these results will be available to her via [facility] [employer] or through contacting the Dept. of Health Information Management ([facility]) at [phone]. Contact the Neuropsychology Clinic at [phone] with questions. Linda Scott, PhD Clinical Psychology Neuropsychology [facility] 04-17-2022 Note Attestation signed by Marisa Carter, PhD at 04/22/2022 1:40 PM I supervised all aspects of this service. 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 She recalls multiple details of events prior to arriving at work and for the first few hours of her shift. She reports that her next memory is of lying on the floor near the door to the kitchen feeling leg and head pain. She reports that she was working alone in the kitchen at the time of the fall, but that a waiter/waitress dining car came in to assist her and a purchasing and claims supervisor was also called, who in turn called EMS. Ms. Jewell reports she was transported to [facility] in [place], [place], and adds a few memories of [...] seen as a new patient for a [place] of Worker's Compensation claim related to concussion [...] also includes a 02/03/22 visit note from [facility] [place] [facility] Neurology with Chas Romero DO (Neuromuscular Specialist), [...] 2020 injury. Review of medical records from [facility] [place] [facility] on 11/12/21 indicate additional history of adrenal [...] previously saw Dr. Carole Caba at [facility]. She reports she currently follows with Wendy Rubio CNP at [facility]. She reports no history of psychological or neuropsychological evaluation, and no history of psychiatric hospitalization. SUBSTANCE USE: Ms. Jewell reports no current use of alcohol and no history of significant alcohol use. She reports no illicit drug use (more content not included)... [facility] 04-03-2022 Note Attestation signed by Rufino [...] patient's left knee was brought in from [facility] on a CD disc that was [...] 04/03/22 10:18 AM (more content not included)... [facility] 04-01-2022 Note [id number] Rebecca Jewell Vilma 1985 F Date Provider Department Center 04/01/2022 513-MARISA CARTER MP REHAB PSY Medical Pavi No family history on file Reason for Visit and Comments: Concussion [[id number]] [facility] 04-01-2022 Note Attestation signed by Marisa Carter, PhD at 04/01/2022 1:03 PM I participated in and supervised all aspects of this service. REVIEWED BY: Marisa Carter, PhD, ABPP Board Certified Clinical Neuropsychologist [facility] OUTPATIENT REHABILITATION SERVICES - NEUROPSYCHOLOGY [address] [facility] [id number] Ms. Nabila Jewell was seen for a neuropsychological evaluation on 04/01/2022. A report describing the results of this evaluation will be posted after the follow-up appointment is completed. Linda Scott, PhD Clinical Psychologist Neuropsychology Fellow [facility] 04-01-2022 Note Ms. Nabila Jewell has a follow-up appointment on 04/17/2022 with Linda Scott, PhD & Marisa Carter PhD ABPP in Neuropsychology, to discuss the results of the evaluation on 04/01/2022. This appointment will be conducted via [employer]. [facility] 02-03-2022 Note HNO ID: [id number] Author: Chas Romero, DO Service: ? Author Type: Physician Type: Progress Notes Filed: 02/03/2022 11:27 AM Note Text: Neuromuscular Clinic Follow up Visit SERVICE DATE: 02/03/2022 PCP: Smiley Urias MD [address] [place] [address] Reason for Evaluation: Consultation requested by Self for an opinion regarding right leg weakness Family/Friend accompanying the patient today: none HPI: This is Ms. Nabila Jewell, a 36 year old female who presents to the [facility] [place] [facility] with the chief complaint above. 02/03/2022: She [...] get up after this. She went to [facility] in [place]. She was evaluated and did testing and [...] significant dysarthria M (more content not included)... [facility] 02-03-2022 History of Present illness Narrative Neuromuscular Clinic Follow up Visit SERVICE DATE: 02/03/2022 PCP: Smiley Urias MD [address] [place] [address] Reason for Evaluation: Consultation requested by Self for an opinion regarding right leg weakness Family/Friend accompanying the patient today: none HPI: This is Ms. Nabila Jewell, a 36 year old female who presents to the [facility] [place] [facility] with the chief complaint above. 02/03/2022: She [...] get up after this. She went to [facility] in [place]. She was evaluated and did testing and [...] which included preparing to see the patient, [id number] patient care, completing clinical documentation, obtaining and/or reviewing separately obtained history, performing a medically appropriate examination, and counseling and educating the patient/family/caregiver. documented in this encounter [facility] [place] [facility] 01-30-2022 Miscellaneous Notes I called patient and communicated results of EMG testing, all questions answered. Advised her that she does not need to follow up with me. Chas Romero DO documented in this encounter [facility] [place] [facility] 01-23-2022 Note HNO ID: [id number] Author: Sofi Hernandez MD Service: ? Author [...] of Care Visit completed when applicable. [facility], EMG Tech Sofi Hernandez MD [facility] 01-23-2022 History of Present illness Narrative [...] Sofi Hernandez MD documented in this encounter [facility] [place] [facility] 01-14-2022 Note PROCEDURE: XR KNEE L T [...] authenticated by: PASCUAL GAMBLE Date: 2022-01-14 12:01 [facility] 01-01-2022 Evaluation note Encounter Date Diagnosis Assessment [...] months if needed Continue restrictions- off work. [employer] Other 06-10-2022 Miscellaneous Notes* Telephone Encounter - Sky Rapp - 12/06/2021 11:31 AM EDT Relationship to patient: Self Reason for call (non-seizure related) Patient called asking about status of prior authorization [facility] order Patient of Dr. Romero [facility] [place] [facility] note* Encounter Date Diagnosis Assessment Notes [...] patient tolerated well with no adverse reactions. [employer] Other 05-17-2022 NoteHNO ID: [id number] Author: Chas Romero, DO Service: ? Author Type: Physician Type: Progress Notes Filed: 11/12/2021 2:58 PM Note Text: Neuromuscular Clinic New Patient Visit SERVICE DATE: 11/12/2021 PCP: Smiley Urias MD [address] [place] [address] Reason for Evaluation: Consultation requested by Self for an opinion regarding right leg weakness Family/Friend accompanying the patient today: none HPI: This is Ms. Nabila Jewell, a 36 year old female who presents to the [facility] [place] [facility] with the chief complaint above. She had an injury at work (March 2021)-she fell and hit her head on a prep table and fell onto her knee. She had difficulty moving to get up after this. She went to [facility] in [place]. She was evaluated and did testing and [...] Hip abduction 4+ (giveaw (more content not included)...[facility]05-17-2022 Instructions* Patient Instructions* Chas Romero DO - 11/12/2021 2:47 PM EDT You were seen today for right leg weakness, I ordered EMG to assess for this. Continue physical therapy exercises. [facility] [place] [facility] History of Present illness Narrative* Chas Romero DO - 11/12/2021 2:00 PM EDT Neuromuscular Clinic New Patient Visit SERVICE DATE: 11/12/2021 PCP: [place] [address] [place] [address] Reason for Evaluation: Consultation requested by Self for an opinion regarding right leg weakness Family/Friend accompanying the patient today: none HPI: This is Ms. Nabila Jewell, a 36 year old female who presents to the [facility] [place] [facility] with the chief complaint above. She had an injury at work (March 2021)-she fell and hit her head on a prep table and fell onto her knee. She had difficulty moving to get up after this. She went to [facility] in [place]. She was evaluated and did testing and [...] which included preparing to see the patient, [id number] patient care, completing clinical documentation, obtaining and/or reviewing separately obtained history, performing a medically appropriate examination, counseling and educating the pat ient/family/caregiver and ordering medications, tests, or procedures. [facility] [place] [facility] Miscellaneous Notes* Telephone Encounter - Sky Rapp - 10/22/2021 10:54 AM EDT Referral, medical records received and scanned in for review. [facility] [place] [facility] Evaluation note* Encounter Date Diagnosis Assessment Notes Treatment Notes Treatment Clinical Notes Aug, Sprain of unspecified site of right knee, initial encounter (ICD-10 - S83.91XA) Continue physical therapy with approval [facility] and referral to neurology for [...] pain. Continue restrictions-of f work, Continue with [employer] Other 01-26-2022 Evaluation note* Encounter Date Diagnosis [...] pain. Continue restrictions-off work, Continue with therapy [employer] Other 12-15-2021 Evaluation note* Encounter Date Diagnosis [...] on the affected leg. Continue off work [employer] Other 11-17-2021 Evaluation note* Encounter Date Diagnosis [...] She has seen an occupational physician at [place] who is ordered a hinged knee brace [...] weeks therapy. Apply for for cortisone injection. [facility] Continue off work [employer] Other 10-20-2021 Evaluation note* Encounter Date Diagnosis [...] [facility] Continue off of work. Mar, Other See orders for this visit as documented in the electronic medical record. [employer] Other 10-06-2021 NoteChief Complaint consultation for abscess [...] 2: Father. Hyperlipidemia: Father. Hypertension: Mother and Father.[facility]: Result Comment: Electronically Signed By: LAVELL QUARLES, Edson Strong\Date and Time Signed: 04/03/21 16:35 EDTEvaluation note* Diagnosis Right leg weakness- Primary Other musculoskeletal symptoms referable to limbs documented in this encounter [facility]No [facility] [employer] Other Evaluation note* Diagnosis Right leg weakness Other musculoskeletal symptoms referable to limbs documented in this encounter [facility] note* Diagnosis Right leg weakness- Primary Other musculoskeletal symptoms referable to limbs documented in this encounter [facility] general Narrative - Reported* Type Description Date Medical History Chronic back pain Medical History HTN Medical History Anxiety Surgical History cholecystectomy Surgical History C section x 2 Surgical History pilonidal cyst Hospitalization History HTN [employer] Other History general Narrative - Reported* Type Description Date Medical History Chronic back pain Medical History HTN Medical History Anxiety Surgical History cholecystectomy Surgical History C section x 2 Surgical History pilonidal cyst Hospitalization History HTN Hospitalization History see surgeries [facility] [employer] Other Reason for referral (narrative)* Outpatient Procedure (Routine) - Authorized Specialty Diagnoses / Procedures Referred By Daniel perry Referred To Contact [facility] [place] Diagnoses Right leg weakness Procedures EMG(NEURO/NI) NERVE CONDUCTION STUDIES 9-10 STUDIES Chas Romero DO [facility] [place] [address] Neurological [place] [address] [place] [address] Referral ID Status Reason Start Date Expiration Date Visits Requested Visits Authorized [id number] Authorized Auto-Generat ed Referral 11/12/2021 11/12/2022 1 1 [facility] for referral (narrative)* Reason referral for neurolo gy for weakness of the right knee and second opinion Diagnosis 1 Sprain of unspecifie d site of right knee, initial encounter (S83.91XA) Referral Organization [facility] [place] [facility] Referring Provider First Name Rolando Referring Provider Last Name Miracle Referring Provider Specialty Orthopedic Surgery Referred Organization Unknown Facility Referred Provider Specialty Neurology Referral Priority Routine [facility] [employer] Other Summary Purpose Family History No Family [...] DATE CREATED AUTHOR AUTHOR'S ORGANIZ ATION 03/02/2020 [facility] DATE CREATED AUTHOR AUTHOR'S ORGANIZ ATION 03/06/2021 [facility] DATE CREATED AUTHOR AUTHOR'S ORGANIZ ATION 04/10/2021 [facility] DATE CREATED AUTHOR AUTHOR'S ORGANIZ ATION 09/29/2021 [facility] DATE CREATED AUTHOR AUTHOR'S ORGANIZ ATION 03/06/2022 [facility] DATE CREATED AUTHOR AUTHOR'S ORGANIZ ATION 04/04/[address] [facility] DATE CREATED AUTHOR AUTHOR'S ORGANIZ ATION 08/29/2022 [facility] DATE CREATED AUTHOR AUTHOR'S ORGANIZ ATION 03/08/2023 [facility] DATE CREATED AUTHOR AUTHOR'S ORGANIZ ATION 07/22/2023 [facility] DATE CREATED AUTHOR AUTHOR'S ORGANIZ ATION 02/19/2024 [facility] y[facility] Source Comments (unrecognize d section and content) In the event this informatio n is protected by the Federal Confidentiality of Alcohol and Drug Abuse Patient Records regulations: The Federal rules restrict any use of the information to criminally investigate or prosecute any alcohol or drug abuse patient.[facility] [place] [facility] the event this information is protected by the Federal Confidentiality of Alcohol and Drug Abuse Patient Records regulations: The Federal rules restrict any use of the information to criminally investigate or prosecute any alcohol or drug abuse patient.[facility] [place] [facility] the event this information is protected by the Federal Confidentiality of Alcohol and Drug Abuse Patient Records regulations: The Federal rules restrict any use of the information to criminally investigate or prosecute any alcohol or drug abuse patient.[facility] [place] [facility] CenterIn the event this information is protected by the Federal Confidentiality of Alcohol and Drug Abuse Patient Records regulations: The Federal rules restrict any use of the information to criminally investigate or prosecute any alcohol or drug abuse patient.[facility] [place] [facility] CenterIn the event this information is protected by the Federal Confidentiality of Alcohol and Drug Abuse Patient Records regulations: The Federal rules restrict any use of the information to criminally investigate or prosecute any alcohol or drug abuse patient.[facility] [place] [facility] CenterIn the event this information is protected by the Federal Confidentiality of Alcohol and Drug Abuse Patient Records regulations: The Federal rules restrict any use of the information to criminally investigate or prosecute any alcohol or drug abuse patient.[facility] Reason for Visit (unrecogniz ed section and content) Reason Comments Received Outside Medical Records Reason Comments New Patient Musculoskeletal Problem RT lower extremi ties Reason Comments Insurance Authorization Reason Comments EMG Specialty Diagnoses / Procedures Referred By Daniel perry Referred To Contact [facility] Diagnoses Right leg weakness Procedures EMG(NEURO/NI) NERVE CONDUCTION STUDIES 9-10 STUDIES Chas Romero DO [address] [place] [address] [place] [address] Referral ID Status Reason Start Date Expiration Date V isits Requested Visits Authorized [id number] Closed Auto-Generate d Referral 11/12/2021 11/12/2022 1 1 Reason Comments Results Reason Comments Established Patient Follow Up Visit Care Teams (unrecognized sec tion and content) Relations Manager Relationship Specialty Start Date End Date Smiley Urias MD PCP - General Family Practice 03/02/14 Serafin Bartlett, DO [address] [phone] Referring Neurology 04/14/19 Rolando Turner, DO [address] [place] [address] Referring Orthopedics 10/11/21 Relations Manager Relationship Specialty Start Date End Date Smiley Urias MD PCP - General Family Practice 03/02/14 Serafin Bartlett, DO [address] [phone] Referring Neurology 04/14/19 Rolando Turner, DO [address] [place] [address] Referring Orthopedics 10/11/21 Relations Manager Relationship Specialty Start Date End Date Smiley Urias MD PCP - General Family Practice 03/02/14 Serafin Bartlett, DO [address] [phone] Referring Neurology 04/14/19 Rolando Turner, DO [address] [place] [address] Referring Orthopedics 10/11/21 Zehra Holly, ELECTROCHEMIST [address] [place] [phone] Referring Family Practice 11/19/21 Relations Manager Relationship Specialty Start Date End Date Smiley Urias MD PCP - General Family Practice 03/02/14 Serafin Bartlett, DO [address] [place] [address] Referring Neurology 04/14/19 Rolando Turner, DO [address] [place] [address] Referring Orthopedics 10/11/21 Zehra Holly, ELECTROCHEMIST [address] [place] [phone] Referring Family Practice 11/19/21 Relations Manager Relationship Specialty Start Date End Date Smiley Urias MD PCP - General Family Practice 03/02/14 Serafin Bartlett, DO [address] [place] [address] Referring Neurology 04/14/19 Rolando Turner, DO [address] [place] [address] Referring Orthopedics 10/11/21 Zehra Holly, ELECTROCHEMIST [address] [place] [facility] [address] Referring Family Practice 11/19/21 FOR RECORDS [...] BE BASED ON THE PRIMARY CLINICAL RECORDS. [facility] [employer] provides no warranty or guarantee of the accuracy or completeness of information in this document.
[2024-03-05 19:06] VITALS: BP 155/99; PULSE 94; TEMP 37.2; O2SAT 99; BMI 43.9
--- NOTE | 2024-03-05 19:32 | XR_ITS ---
[place] [id number] Patient Name: RIVERA OWENS MRN: [id number] date: 1985 Sex: F Assigned Patient Location: ER Current Patient Location: ER Accession/Order Number: [id number] Exam Date: 03/05/2024 19:38 Report Date: 03/05/2024 20:20 At the request of: PRETTY BEST Procedure: XR knee RT 3V EXAM: XR knee RT 3V TECHNIQUE: AP, lateral and oblique views right knee. HISTORY: injury COMPARISON: None. FINDINGS: No acute fracture or dislocation. Moderate-sized patellar joint effusion. No significant arthritic changes. XR/XR knee RT 3V IMPRESSION: No fracture Electronically authenticated by: GWENDOLYN LLANOS Date: 03/05/2024 20:20
--- NOTE | 2024-03-05 19:32 | ED.EXTPRO1 ---
HPI - Extremity Problem General Chief complaint: Extremity Problem, Nontraumatic Stated complaint: LOWER EXTREMITY INJURY, RIGHT Time Seen by Provider: 03/05/24 19:27 Source: patient Mode of arrival: walk-in Limitations: no limitations History of Present Illness HPI Narrative: injured right knee at work about 2 weeks ago. States she was walking in a backyard and step into a hole twisting her knee. Had some pain but able to continue working. 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 Has past history of surgery left knee. Developed pain left knee and started compensating by walking more on the right knee and now it is hurting more. No additional injury. Points to medial aspect of knee as site of pain. No ankle or hip pain. No fever Related Data Home Medications ?Medication ?Instructions ?Recorded ?Confirmed alprazolam 0.5 mg tablet (Xanax) 0.5 mg PO BID 04/27/23 04/27/23 amitriptyline 25 mg tablet 25 mg PO DAILY 04/27/23 04/27/23 celecoxib 200 mg capsule (Celebrex) 200 mg PO BID 04/27/23 04/27/23 gabapentin 300 mg capsule 300 mg PO TID 04/27/23 04/27/23 lisinopril 20 mg tablet 20 mg PO DAILY 04/27/23 04/27/23 magnesium 200 mg tablet 400 mg PO DAILY 04/27/23 04/27/23 methadone 10 mg/mL oral 50 mg PO DAILY 04/27/23 04/27/23 concentrate (Methadose) potassium 20 meq PO BEDTIME 04/27/23 04/27/23 ferrous sulfate 325 mg (65 mg 325 mg PO DAILY 06/15/23 06/15/23 iron) tablet (Feosol) Allergies Allergy/AdvReac Type Severity Reaction Status Date / Time azithromycin Allergy Unknown Unknown Verified 03/05/24 19:12 erythromycin base Allergy Anaphylaxis Verified 03/05/24 19:12 Review of Systems ROS Status of ROS 10 or more systems reviewed and unremarkable except as noted in history and below [facility] Social History Little interest or pleasure in doing things: not at all Feeling down, depressed, or hopeless: not at all Exam Constitutional Vital Signs, click to edit/add: Last Vital Signs Temp 98.9 F 03/05/24 19:06 Pulse 94 H 03/05/24 19:06 Resp 16 03/05/24 19:06 BP 155/99 H 03/05/24 19:06 Pulse Ox 99 03/05/24 19:06 O2 Del Method Room Air 03/05/24 19:06 Common normals: no apparent distress, average body habitus, oriented x3, no limitations, healthy appearing, alert and well nourished [facility] Common normals: normocephalic and head/scalp atraumatic Eye Common normals: EOMs intact bilaterally and conjunctivae normal Respiratory Common normals: normal respiratory effort, no retractions, no use of accessory muscles and clear to auscultation bilaterally Cardio Common normals: regular rate, regular rhythm, S1 normal heart sound and S2 normal heart sound GI Common normals: Normal to inspection, nondistended, normoactive bowel sounds present, soft to palpation and non-tender Extremity Common normals: normal to inspection and full ROM Neuro Common normals: oriented x3, CN's II-XII intact bilaterally, moves all extremities and no focal motor deficits Psych Appearance: grossly normal Course Vital Signs Vital signs: Vital Signs Temperature 98.9 F 03/05/24 19:06 Pulse Rate 94 H 03/05/24 19:06 Respiratory Rate 16 03/05/24 19:06 Blood Pressure 155/99 H 03/05/24 19:06 Pulse Oximetry 99 03/05/24 19:06 Oxygen Delivery Method Room Air 03/05/24 19:06 Temperature 98.9 F 03/05/24 19:06 Pulse Rate 94 H 03/05/24 19:06 Respiratory Rate 16 03/05/24 19:06 Blood Pressure 155/99 H 03/05/24 19:06 Pulse Oximetry 99 03/05/24 19:06 Oxygen Delivery Method Room Air 03/05/24 19:06 MDM - Extremity (Nontraumatic) MDM Narrative Medical decision making narrative: patient presents with injury right knee 2 weeks ago. Twisting injury. exam with mild medial joint tenderness and sl. effusion. Xray neg. Patient provided crutches and advised to follow up with orthopedics Imaging Data Chest x-ray: Radiologist's impression: ITS Impressions Knee X-Ray 03/05/24 19:32 IMPRESSION: No fracture Electronically authenticated by: GWENDOLYN LLANOS Date: 03/05/2024 20:20 Discharge Plan Discharge Chief Complaint: Extremity Problem, Nontraumatic Clinical Impression: Knee MCL sprain Patient Disposition: Home, Self-Care Prescriptions / Home Meds: No Action potassium 20 mEq 20 meq PO BEDTIME magnesium 200 mg tablet 400 mg PO DAILY lisinopril 20 mg tablet 20 mg PO DAILY alprazolam [Xanax] 0.5 mg tablet 0.5 mg PO BID methadone [Methadose] 10 mg/mL concentrate 50 mg PO DAILY amitriptyline 25 mg tablet 25 mg PO DAILY gabapentin 300 mg capsule 300 mg PO TID celecoxib [Celebrex] 200 mg capsule 200 mg PO BID ferrous sulfate [Feosol] 325 mg (65 mg iron) tablet 325 mg PO DAILY Print Language: Turkish Instructions: Knee Sprain (ED) Referrals: Yovani Echols MD [Primary Care Provider] - 1 week
== END 2024-03-05 21:06 | disposition home or self-care (01) ==
PROVIDERS: Emergency Provider Internal Medicine; PCP Family Medicine
DX: S83.411A Sprain of medial collateral ligament of right knee, initial encounter (principal); W18.42XA Slipping, tripping and stumbling without falling due to stepping into hole or opening, initial encounter
CPT/HCPCS: 73562; 99283

== ENCOUNTER 2024-03-07 13:01 | Outpatient (RCR) | payer OTHER, SELFPAY | END 2024-03-29 13:37 | disposition home or self-care (01) | LOC: PT 13:01 | PROVIDERS: PCP Family Medicine; Visit Provider Family Medicine | DX: M79.601 Pain in right arm (principal); M25.561 Pain in right knee; M25.562 Pain in left knee | CPT/HCPCS: 97010; 97014; 97110; 97140; 97161 ==

== ENCOUNTER 2024-03-11 07:31 | Outpatient (OUT) | payer OTHER, SELFPAY ==
--- NOTE | 2024-03-11 | MR_ITS ---
[address] [address] Patient Name: RIVERA OWENS MRN: [facility]:[id number] date: 1985 Sex: F Assigned Patient Location: MRI Current Patient Location: MRI Accession/Order Number: [id number] Exam Date: 03/11/2024 07:45 Report Date: 03/11/2024 16:57 At the request of: SMILEY URIAS Procedure: MR knee RT wo con EXAM: MR knee RT wo con HISTORY: Internal derangement right knee COMPARISON: 03/05/2024 TECHNIQUE: MRI images obtained with multiple sequences. MRI of the right knee without contrast. Sequences obtained by standard department protocol. FINDINGS: Anterior cruciate and posterior cruciate ligaments are intact. Medial collateral ligament and lateral supporting structures are intact. Discoid lateral meniscus. Lateral compartment articular cartilage is preserved. Medial meniscus is intact. Medial compartment articular cartilage is preserved. Extensor mechanism is intact. Near full-thickness chondral fissuring at the patellar median ridge (4001/5). No acute fracture. No acute bone marrow edema. Large knee joint effusion. Extensor mechanism is intact. No popliteal cyst. MR/MR knee RT wo con IMPRESSION: 1. Anterior cruciate and posterior cruciate ligaments are intact. 2. Discoid lateral meniscus. Medial meniscus is intact. 3. Near full-thickness chondral fissuring at the patellar median ridge. 4. Large knee joint effusion. Electronically authenticated by: MENG CONROY Date: 03/11/2024 16:57
--- OUTSIDE RECORDS SUMMARY | 2024-03-11 07:33 | XMS_ITS | CCD ---
Author Organization [facility] Care Team Providers Care Earrings Fabricator Name Role Phone VILLEGASEDSON PLASCENCIA Unavailable Unavailab SMILEY Dawkins Unavailable Unavailable PROVIDER, UNKNOWN Attending Unavailable PROVIDER, UNKNOWN Admitting Unavailable Smiley Urias MD Primary Care Provider [phone] Serafin Bartlett DO Unavailable Rolando Turner DO Unavailable Zehra Holly CNP Unavailable [phone] Rolando Turner Unavailable Smiley Urias MD Primary Care Provider [phone] Serafin Bartlett DO Unavailable Rolando Turner DO Unavailable Zehra Holly CNP Unavailable [phone] SMILEY URIAS Referring Unavailable SMILEY URIAS Primary [...] , Andrius Allen Attending Unavailable Gianni QUARLES, Fabiná Allen Attending Unavailable Luiz Knight Attending Unavailab Luiz Brennan Admitting Unavailab Smiley Dawkins Primary Care Unavailable Allergies Allergy Classification Reported Allergen(s) Allergy Type Date of Onset Reaction(s) Facility (7 sources) Erythromycin; Translations: [ERYTHROMYCIN] Drug Allergy 2 anaphylaxis [facility] Repository (1 source) Erythromycin Drug Allergy 0 [facility] Repository (1 source) Erythromycin Drug Allergy 1 [facility] Repository (1 source) Erythromycin; Translations: [ERYTHROMYCIN LACTOBIONATE] Drug Allergy 2 [facility] Repository (1 source) ALLERGIES NOT ON FILE; Translations: [ALLERGIES NOT ON FILE] Propensity to adverse reactions (disorder) [facility] Repository (1 source) Azithromycin Drug Allergy 1 [facility] Repository (1 source) Erythromycin Drug Allergy 2 [facility] Repository Medications Current Medications Medication Drug Class(es) [...] above: Take 1 capsule by mo [facility] once daily. 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 [facility] 03-05-2023 36 Patient states she received a note for work but she needs a note stating she is off work. Please email if MD writes she states it is for jobs and family services and she states that is what they need. [facility] Follow-Upon 03-04-2023 Follow-Up [id number] Rebecca Jewell 1985 F Date Provider Department Center 03/04/2023 PASCUAL HOPKINS MP PHYS MED Medical Pavi No family history on file Level of Service:89543 [place] OFFICE/OUTPATIENT ESTABLISHED LOW MDM 20-29 MIN (GC) Reason for Visit and Comments: Concussion [993631] - [facility] Office Visiton 02-23-2023 Follow-up visit [id number] Rebecca Jewell 1985 F Date Provider Department Center 02/23/2023 JENNY MARAVILLA MP ORTHO MPORTHO No family history on file Level of Service:79787 [place] POSTOP FOLLOW UP VISIT RELATED TO ORIGINAL PX (GC) Reason for Visit and Comments: Pain [136] Follow-up [745438] [facility] Office Visiton 01-12-2023 Follow-up visit [id number] Rebecca Jewell 1985 F Date Provider Department Center 01/12/2023 JENNY MARAVILLA MP ORTHO MPORTHO No family history on file Level of Service:31467 [place] POSTOP FOLLOW UP VISIT RELATED TO ORIGINAL PX (GC) Reason for Visit and Comments: Post-op [483] Normal [facility] Orders Onlyon 01-08-2023 Orders Only [id number] Rebecca Jewell 1985 F Date Provider Department Center 01/08/2023 SHRUTHI TORREZ MP ORTHO MPORTHO No family history on file Normal [facility] OPNOTEon 01-01-2023 OPNOTE KNEE ARTHROSCOPY WIT H PARTILA LATERAL MENISCECTOMY (L), CHONDROPLASTY (L) Operative Note Date: 01/01/2023 Location: [facility] OR Name: Nabila Jewell, : 1985, Diagnosis Pre-op Diagnosis * 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 Condition: stable Jenny Yaneshn [facility] POCT GLUCOSE METER UNSOLICIT ED RESULTSon 01-01-2023 Glucose [Mass/Vol] 93 mg/dL Normal 70-105 [facility] Comment on above: Order Comment: Waive d Testing in the ED is performed under the ED CLIA certificate #[id number]. 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 Documentationon 12-09-2022 Documentation [id number] Rebecca Jewell 1985 F Date Provider Department Center 12/09/2022 PARRISH STOVER MP DIETARY Medical Pavi Chart Close Cosign Required by: Samir Mendoza MD[1894] No family history on file [facility] 36on 12-03-2022 36 [employer] Cici from [facility] calls to state the last note sent with the [employer] has a statement that patient can work 4 hours per day 20 hours per week but [employer] sent yesterday did not have any thing listed but patient states there were no changes and she is still to be off work. I pulled up [employer] sent in by sql report writer and I had forgotten to check [...] [employer]CO back. [facility] Telephoneon 12-03-2022 Telephone [id number] Rebecca Jewell iva Vilma 1985 F Date Provider Department Center 12/03/2022 PASCUAL HOPKINS MP PHYS MED Medical Pavi No family history on file [facility] Follow-Upon 12-01-2022 Follow-Up [id number] Taj Jewellvenancio Esparza 1985 F Date Provider Department Dexter 12/01/2022 PASCUAL HOPKINS MP PHYS MED Medical Pavi No family history on file Level of Service:62726 [place] OFFICE/OUTPATIENT ESTABLISHED LOW MDM 20-29 MIN (GC) Reason for Visit and Comments: headaches [Other] - [facility] Follow-Upon 09-29-2022 Follow-Up [id number] Rebecca Jewell M 1985 F Date Provider Department Center 09/29/2022 PASCUAL HOPKINS MP PHYS MED Medical Pavi No family history on file Level of Service:30564 [place] OFFICE/OUTPATIENT ESTABLISHED LOW MDM 20-29 MIN Reason for Visit and Comments: headaches [Other] Leg Pain [239815] - Right Normal [facility] Orders Onlyon 09-29-2022 Orders Only [id number] Rebecca Jewell M 1985 F Date Provider Department Center 09/29/2022 PASCUAL HOPKINS MP PHYS MED Medical Pavi No family history on file Normal [facility] Office Visiton 09-15-2022 Follow-up visit [id number] Rebecca Jewell M 1985 Date Provider Department Center 09/15/2022 JENNY MARAVILLA MP ORTHO MPORTHO No family history on file Level of Service:46099 [place] OFFICE/OUTPATIENT ESTABLISHED MOD MDM 30-39 MIN (57) Reason for Visit and Comments: Pain [136] Normal [facility] CULTURE URINEon 08-22-2022 CULTURE URINE Culture Observations : MODERATE GROWTH OF MIXED GENITAL GISELLE. NO POTENTIAL PATHOGENS SEEN. Normal [facility] Comment on above: Performed By: #### T SH, LIPID, CMP, URIC, T7, CRP #### [facility] [address] [place] [address] Dr. Walker Gabriel UA RANDOM W/MICROSCOPICon BACTERIA MODERATE Abnormal NONE SEEN [facility] Comment on above: Performed By: #### U AMIC #### [facility] [address] [place] [address] Dr. Walker Gabriel Bilirubin Ql (U) Negative Normal NEGATIVE [facility] Comment on above: Performed By: #### U AMIC #### [facility] [address] [place] [address] Dr. Walker Gabriel CAST NONE SEEN Normal NONE SEEN [facility] Comment on above: Performed By: #### U AMIC #### [facility] [address] [place] [address] Dr. Walker Gabriel Clarity (U) CLEAR Normal CLEAR [facility] Comment on above: Performed By: #### U AMIC #### [facility] [address] [address] [address] Walker Gabriel Color (U) YELLOW Normal YELLOW [facility] Comment on above: Performed By: #### U AMIC #### [facility] [address] [place] [address] Dr. Walker Gabriel Crystals LM Nom (Urine sed) NONE SEEN Normal NONE SEEN [facility] Comment on above: Performed By: #### U AMIC #### [facility] [address] [address] [address] aWlker Gabriel Epithelial cells LM Ql (Urine sed) FEW Abnormal NONE SEEN /RARE [facility] Comment on above: Performed By: #### U AMIC #### [facility] [address] [place] [address] Dr. Walker Gabriel Glucose Ql (U) Negative Normal NEGATIVE [facility] Comment on above: Performed By: #### U AMIC #### [facility] [address] [place] [address] Dr. Walker Gabriel Hemoglobin Ql (U) TRACE-LYSED Abnormal NEGATIVE [facility] Comment on above: Performed By: #### U AMIC #### [facility] [address] [place] [address] Dr. Walker Gabriel Ketones Ql (U) Negative Normal NEGATIVE [facility] Comment on above: Performed By: #### U AMIC #### [facility] [address] [address] [address] Walker Gabriel LEUKOCYTES Negative Normal NEGATIVE [facility] Comment on above: Performed By: #### U AMIC #### [facility] [address] [place] [address] Dr. Walker Gabriel MUCOUS NONE SEEN Normal NONE SEEN [facility] Comment on above: Performed By: #### U AMIC #### [facility] [address] [place] [address] Dr. Walker Gabriel Nitrite Ql (U) Negative Normal NEGATIVE [facility] Comment on above: Performed By: #### U AMIC #### [facility] [address] [address] [address] Walker Gabriel pH (U) 6.0 [pH] Normal 5-9 [facility] Comment on above: Performed By: #### U AMIC #### [facility] [address] [address] [address] Walker Gabriel RBC 0-2 Normal 0-2 [facility] Comment on above: Performed By: #### U AMIC #### [facility] [address] [address] [address] Walker Gabriel SPEC GRAVITY >=1.030 Abnormal 1.005-<=1.025 [facility] Comment on above: Performed By: #### U AMIC #### [facility] [address] [place] [address] Dr. Walker Gabriel UA PROTEIN Negative Normal NEGATIVE/ TRACE [facility] Comment on above: Performed By: #### U AMIC #### [facility] [address] [address] [address] Walker Gabriel Urobilinogen Qn (U) 0.2 {Natalie'U}/dL Normal 0.2 - 1. 0 [facility] Comment on above: Performed By: #### U AMIC #### [facility] [address] [place] [address] Dr. Walker Gabriel WBC 2-5 Abnormal NONE SEEN [facility] Comment on above: Performed By: #### U AMIC #### [facility] [address] [place] [address] Dr. Walker Gabriel XR KUB 1 VIEWon [...] by: PASCUAL GAMBLE Date: 2022-08-22 12:42 Normal [facility] Follow-Upon 08-21-2022 Follow-Up [id number] Rebecca Jewell M 1985 Provider Department Center 08/21/2022 CAROLE ENAMORADO MP ORTHO MPORTHO No family history on file Level of Service:87448 [place] OFFICE/OUTPATIENT ESTABLISHED LOW MDM 20-29 MIN Reason for Visit and Comments: Pain [136] Normal [facility] Clinical Supporton Clinical Support [id number] Rebecca Jewell M 1985 Date Provider Department Dexter 08/06/2022 PARRISH STOVER MP DIETARY Medical Pavi Chart Close Cosign Required by: Samir Mendoza MD[1894] No family history on file Reason for Visit and Comments: Obesity [[id number]] Hypertension [754101] Normal [facility] Erroneous Encounteron 2022 Erroneous Encounter [id number] Rebecca Jewell iva M 1985 [facility] Provider Department Dexter 08/06/2022 PARRISH STOVER MP DIETARY Medical Pavi No family history on file Reason for Visit and Comments: Error (VOID this visit) [77] [facility] Documentationon 07-31-2022 Documentation [id number] Rebecca Jewell M 1985 Provider Department Dexter 07/31/2022 PARRISH STOVER [facility] NUTRN DC Medical C Chart Close Cosign Required by: Samir Mendoza MD[1894] No family history on file [facility] Follow-Upon 07-02-2022 Follow-Up [id number] Rebecca Jewell M 1985 Date Provider Department Dexter 07/02/2022 PASCUAL HOPKINS MP PHYS MED Medical Pavi No family history on file Level of Service:58137 [place] OFFICE/OUTPATIENT ESTABLISHED MOD MDM 30-39 MIN Reason for Visit and Comments: Headache [52] Leg Pain [935639] - Right [facility] Refillon 05-28-2022 Refill [id number] Rebecca Jewell iva M 1985 Date Provider Department Center 05/28/2022 PASCUAL HOPKINS MP PHYS MED Medical Pavi No family history on file Reason for Visit and Comments: Med Refill [179445] Normal [facility] Follow-Upon 05-15-2022 Follow-Up [id number] Rebecca Jewell 1985 F Date Provider Department Center 05/15/2022 RUFINO DICKERSON MP ORTHO MPORTHO Chart Close Cosign Required by: Rufino Perdomo MD[[id number]] No family history on file Level of Service:51269 [place] OFFICE/OUTPATIENT ESTABLISHED LOW MDM 20-29 MIN (GC) Reason for Visit and Comments: Follow-up [076298] - Follow up on left knee pain. Normal [facility] Follow-Upon 04-30-2022 Follow-Up [id number] Rebecca Jewell 1985 F Date Provider Department Center 04/30/2022 PASCUAL HOPKINS MP PHYS MED Medical Pavi No family history on file Level of Service:51875 [place] OFFICE/OUTPATIENT ESTABLISHED MOD MDM 30-39 MIN (GC) Reason for Visit and Comments: headaches [Other] Normal [facility] DARIO by IFAon 04-21-2022 Antinuclear Antibodies, IFA Negative Normal [facility] Comment on above: Result Comment: Nega tive <1:80 Borderline 1:80 Positive >1:80 ICAP nomenclature: AC-0 For more information about Hep-2 cell patterns use ANApatterns.org, the official website for the International Consensus on Antinuclear Antibody (DARIO) Patterns (ICAP). Performed By: #### T SH, LIPID, CMP, URIC, T7, CRP #### [facility] [address] [place], [place] [address] Dr. Walker Gabriel SLE PROFILE Aon 04-21-2022 Anti-DNA (DS) Ab Qn 3 IU/mL Normal 0-[address] [facility] Comment on above: Result Comment: Nega tive <5 Equivocal 5 - 9 Positive >9 Performed By: #### S JUSTO #### [facility] [address] [place], [place] [address] Dr. Walker Gabriel Antichromatin Antibodies <0.2 Normal 0.0-0.9 [facility] Comment on above: Performed By: #### S JUSTO #### [facility] [address] [place] [address] Dr. Walker Gabriel RA Latex Turbid. <10.0 Normal <14.0 [facility] Comment on above: Performed By: #### S JUSTO #### [facility] [address] [place] [address] Dr. Walker Gabriel FINANCIAL ANALYST Antibodies <0.2 Normal 0.0-0.9 [facility] Comment on above: Performed By: #### S JUSTO #### [facility] [address] [place] [address] Dr. Walker Grayogrlinda'lety Anti-SS-A <0.2 Normal 0.0-0.[address] [facility] Comment on above: Performed By: #### S JUSTO #### [facility] [address] [place] [address] Dr. Walker Grayogrlinda'lety Anti-SS-B <0.2 Normal 0.0-0.[address] [facility] Comment on above: Performed By: #### S JUSTO #### [facility] [address] [place] [address] Dr. Walker Gabriel Lemus Antibodies <0.2 Normal 0.0-0.9 [facility] Comment on above: Performed By: #### S JUSTO #### [facility] [address] [place] [address] Dr. Walker Gabriel ANTISTREPTOLYSIN O AB (ASO)o n 04-19-2022 Antistreptolysin O Ab 227.2 IU/mL Critically high 0.0-200.0 [facility] Comment on above: Performed By: #### T SH, LIPID, CMP, URIC, T7, CRP #### [facility] [address] [place] [address] Dr. Walker Gabriel INSULINon 04-19-2022 Insulin 20.8 uIU/mL Normal 2.6-24.9 [facility] Comment on above: Performed By: #### T SH, LIPID, CMP, URIC, T7, CRP #### [facility] [address] [place] [address] Dr. Walker Gabriel CBC AUTO DIFFon 04-18-2022 BASO # 0.0 103/ul Normal 0.0-0.1 [facility] Comment on above: Performed By: #### T SH, LIPID, CMP, URIC, T7, CRP #### [facility] [address] [place] [address] Dr. Walker Gabriel Basophils/100 WBC (Bld) 0.4 % Normal 0.2-2.0 [facility] Comment on above: Performed By: #### T SH, LIPID, CMP, URIC, T7, CRP #### [facility] [address] [place] [address] Dr. Walker Gabriel EO # 0.1 103/ul Normal 0.0-0.7 [facility] Comment on above: Performed By: #### T SH, LIPID, CMP, URIC, T7, CRP #### [facility] [address] [place] [address] Dr. Walker Gabriel Eosinophils/100 WBC (Bld) 1.4 % Normal 0.9-7.0 [facility] Comment on above: Performed By: #### T SH, LIPID, CMP, URIC, T7, CRP #### [facility] [address] [place] [address] Dr. Walker Gabriel Erythrocyte distribution width (RBC) [Ratio] 12.8 % Normal 11.0-15.0 [facility] Comment on above: Performed By: #### T SH, LIPID, CMP, URIC, T7, CRP #### [facility] [address] [place] [address] Dr. Walker Gabriel Hematocrit (Bld) [Volume fraction] 38.1 % Normal 36.0-48.0 [facility] Comment on above: Performed By: #### T SH, LIPID, CMP, URIC, T7, CRP #### [facility] [address] [place] [address] Dr. Walker Gabriel Hemoglobin (Bld) [Mass/Vol] 12.3 g/dL Normal 12.0-16.0 [facility] Comment on above: Performed By: #### T SH, LIPID, CMP, URIC, T7, CRP #### [facility] [address] [place] [address] Dr. Walker Gabriel IG # 0.03 10e3/ul Normal 0.00-0.03 [facility] Comment on above: Performed By: #### T SH, LIPID, CMP, URIC, T7, CRP #### [facility] [address] [place] [address] Dr. Walker Gabriel IG % 0.4 % Normal 0.0-0.5 [facility] Comment on above: Performed By: #### T SH, LIPID, CMP, URIC, T7, CRP #### [facility] [address] [place] [address] Dr. Walker Gabriel LYMPH # 2.6 103/ul Normal 1.2-3.8 [facility] Comment on above: Performed By: #### T SH, LIPID, CMP, URIC, T7, CRP #### [facility] [address] [place] [address] Dr. Walker Gabriel Lymphocytes/100 WBC (Bld) 35.5 % Normal 20.5-60.0 [facility] Comment on above: Performed By: #### T SH, LIPID, CMP, URIC, T7, CRP #### [facility] [address] [place] [address] Dr. Walker Gabriel MANUAL DIFF REQ NO Normal [facility] Comment on above: Performed By: #### T SH, LIPID, CMP, URIC, T7, CRP #### [facility] [address] [place] [address] Dr. Walker Gabriel MCH (RBC) [Entitic mass] 28.7 pg Normal 26.7-34.0 [facility] Comment on above: Performed By: #### T SH, LIPID, CMP, URIC, T7, CRP #### [facility] [address] [place] [address] Dr. Walker Gabriel MCHC (RBC) [Mass/Vol] 32.3 g/dL Normal 29.9-35.2 [facility] Comment on above: Performed By: #### T SH, LIPID, CMP, URIC, T7, CRP #### [facility] [address] [place] [address] Dr. Walker Gabriel MCV (RBC) [Entitic vol] 88.8 fL Normal 81.0-99.0 [facility] Comment on above: Performed By: #### T SH, LIPID, CMP, URIC, T7, CRP #### [facility] [address] [place] [address] Dr. Walker Gabriel MONO # 0.4 103/ul Normal 0.3-0.8 [facility] Comment on above: Performed By: #### T SH, LIPID, CMP, URIC, T7, CRP #### [facility] [address] [place] [address] Dr. Walker Gabriel Monocytes/100 WBC (Bld) 6.1 % Normal 1.7-12.0 [facility] Comment on above: Performed By: #### T SH, LIPID, CMP, URIC, T7, CRP #### [facility] [address] [place] [address] Dr. Walker Gabriel NEUT # 4.0 103/ul Normal 1.4-6.5 [facility] Comment on above: Performed By: #### T SH, LIPID, CMP, URIC, T7, CRP #### [facility] [address] [place] [address] Dr. Walker Gabriel Neutrophils/100 WBC (Bld) 56.2 % Normal 43.0-75.0 [facility] Comment on above: Performed By: #### T SH, LIPID, CMP, URIC, T7, CRP #### [facility] [address] [place] [address] Dr. Walker Gabriel Platelet mean volume (Bld) [Entitic vol] 8.3 fL Critically low 9.5-13.5 [facility] Comment on above: Performed By: #### T SH, LIPID, CMP, URIC, T7, CRP #### [facility] [address] [place] [address] Dr. Walker Gabriel PLT 328 103/ul Normal 150-450 [facility] Comment on above: Performed By: #### T SH, LIPID, CMP, URIC, T7, CRP #### [facility] [address] [address] [address] Walker Gabriel RBC 4.29 106/ul Normal 4.20-5.40 [facility] Comment on above: Performed By: #### T SH, LIPID, CMP, URIC, T7, CRP #### [facility] [address] [place] [address] Dr. Walker Gabriel WBC 7.2 103/ul Normal 4.0-11.0 [facility] Comment on above: Performed By: #### T SH, LIPID, CMP, URIC, T7, CRP #### [facility] [address] [address] [address] Walker Gabriel CRPon 04-18-2022 CRP 1.3 mg/dL Critically high <=1.0 [facility] Comment on above: Performed By: #### T SH, LIPID, CMP, URIC, T7, CRP #### [facility] [address] [place] [address] Dr. Walker Gabriel FREE THYROXINE INDEX T7on FTI 2.91 Normal 1.30-4.50 [facility] Comment on above: Performed By: #### T SH, LIPID, CMP, URIC, T7, CRP #### [facility] [address] [place] [address] Dr. Walker Gabriel T3U 31.0 % Normal 30.0-39.0 [facility] Comment on above: Performed By: #### T SH, LIPID, CMP, URIC, T7, CRP #### [facility] [address] [place] [address] Dr. Walker Gabriel T4 [Mass/Vol] 9.40 ug/dL Normal 4.80-13.90 [facility] Comment on above: Performed By: #### T SH, LIPID, CMP, URIC, T7, CRP #### [facility] [address] [place] [address] Dr. Walker Gabriel GLYCOHEMOGLOBIN A1Con 2021 ADA RECOMMENDATION SEE BELOW Normal [facility] Comment on above: Result Comment: ADA RECOMMENDED LIMIT 4.0 - 6.0 ADA THERAPEUTIC TARGET < 7.0 ACTION SUGGESTED > 7.0 Performed By: #### T SH, LIPID, CMP, URIC, T7, CRP #### [facility] [address] [place] [address] Dr. Walker Gabriel Glucose [Mass/Vol] 114 mg/dL Normal [facility] Comment on above: Performed By: #### T SH, LIPID, CMP, URIC, T7, CRP #### [facility] [address] [place] [address] Dr. Walker Gabriel HbA1c (Bld) [Mass fraction] 5.6 % Normal 4.5-6.2 [facility] Comment on above: Performed By: #### T SH, LIPID, CMP, URIC, T7, CRP #### [facility] [address] [place] [address] Dr. Walker Gabriel IRONon 04-18-2022 Iron [Mass/Vol] 34.0 ug/dL Critically low 50.0-170.[address] [facility] Comment on above: Performed By: #### I FRANCISCO #### [facility] [address] [place] [address] Dr. Walker Gabriel LIPID PROFILEon 04-18-2022 CHOL-HDL RATIO NORM SEE BELOW Normal [facility] Comment on above: Result Comment: 3.3 - 4.4 LOW RISK 4.4 - 7.1 AVERAGE RISK 7.1 - 11.0 MODERATE RISK >11.0 HIGH RISK Performed By: #### T SH, LIPID, CMP, URIC, T7, CRP #### [facility] [address] [place] [address] Dr. Walker Gabriel Cholesterol [Mass/Vol] 174 mg/dL Normal <=200 [facility] Comment on above: Performed By: #### T SH, LIPID, CMP, URIC, T7, CRP #### [facility] [address] [place] [address] Dr. Walker Gabriel Cholesterol in HDL [Mass/Vol] 70 mg/dL Critically high 40-60 [facility] Comment on above: Performed By: #### T SH, LIPID, CMP, URIC, T7, CRP #### [facility] [address] [address] [address] Walker Gabriel Cholesterol in LDL [Mass/Vol] 92.8 mg/dL Normal [facility] Comment on above: Performed By: #### T SH, LIPID, CMP, URIC, T7, CRP #### [facility] [address] [address] [address] Walker Gabriel Cholesterol.total/Ch olesterol in HDL [Mass ratio] 2.5 {ratio} Normal [facility] Comment on above: Performed By: #### T SH, LIPID, CMP, URIC, T7, CRP #### [facility] [address] [address] [address] Walker Gabriel HDL NORMAL > or = 60 mg/dl - LO W CARDIOVASCULAR RISK <40 mg/dl - HIGH CARDIOVASCULAR RISK Normal [facility] Comment on above: Performed By: #### T SH, LIPID, CMP, URIC, T7, CRP #### [facility] [address] [address] [address] Walker Gabriel LDL CALC NORMAL SEE BELOW Normal [facility] Comment on above: Result Comment: <100 mg/dl OPTIMAL 100 - 129 mg/dl NEAR OR ABOVE OPTIMAL 130 - 159 mg/dl BORDERLINE HIGH 160 - 189 mg/dl HIGH >190 mg/dl VERY HIGH Performed By: #### T SH, LIPID, CMP, URIC, T7, CRP #### [facility] [address] [address] [address] Walker Gabriel Triglyceride [Mass/Vol] 56 mg/dL Normal <=150 [facility] Comment on above: Performed By: #### T SH, LIPID, CMP, URIC, T7, CRP #### [facility] [address] [address] [address] Walker Gabriel VLDL CALC 11.2 mg/dL Normal [facility] Comment on above: Performed By: #### T SH, LIPID, CMP, URIC, T7, CRP #### [facility] [address] [address] [address] Walker Gabriel PROF 14(COMP METB)on 04-18- 022 Albumin [Mass/Vol] 3.0 g/dL Critically low 3.4-5.[address] [facility] Comment on above: Performed By: #### T SH, LIPID, CMP, URIC, T7, CRP #### [facility] [address] [place] [address] Dr. Walker Gabriel Albumin/Globulin [Mass ratio] 0.6 {ratio} Normal [facility] Comment on above: Performed By: #### T SH, LIPID, CMP, URIC, T7, CRP #### [facility] [address] [place] [address] Dr. Walker Gabriel ALP [Catalytic activity/Vol] 102 U/L Normal 46-116 [facility] Comment on above: Performed By: #### T SH, LIPID, CMP, URIC, T7, CRP #### [facility] [address] [place] [address] Dr. Walker Gabriel ALT [Catalytic activity/Vol] 19 U/L Normal 14-59 [facility] Comment on above: Performed By: #### T SH, LIPID, CMP, URIC, T7, CRP #### [facility] [address] [place] [address] Dr. Walker Gabriel Anion gap [Moles/Vol] 7.9 mmol/L Normal [facility] Comment on above: Performed By: #### T SH, LIPID, CMP, URIC, T7, CRP #### [facility] [address] [place] [address] Dr. Walker Gabriel AST [Catalytic activity/Vol] 12 U/L Critically low 15-37 [facility] Comment on above: Performed By: #### T SH, LIPID, CMP, URIC, T7, CRP #### [facility] [address] [place] [address] Dr. Walker Gabriel Bilirubin [Mass/Vol] 0.1 mg/dL Critically low 0.2-1.0 [facility] Comment on above: Performed By: #### T SH, LIPID, CMP, URIC, T7, CRP #### [facility] [address] [place] [address] Dr. Walker Gabriel Calcium [Mass/Vol] 8.9 mg/dL Normal 8.5-10.1 [facility] Comment on above: Performed By: #### T SH, LIPID, CMP, URIC, T7, CRP #### [facility] [address] [address] [address] Walker Gabriel Chloride [Moles/Vol] 103 mmol/L Normal 98-107 [facility] Comment on above: Performed By: #### T SH, LIPID, CMP, URIC, T7, CRP #### [facility] [address] [place] [address] Dr. Walker Gabriel CO2 [Moles/Vol] 28.4 mmol/L Normal 21.0-32.0 [facility] Comment on above: Performed By: #### T SH, LIPID, CMP, URIC, T7, CRP #### [facility] [address] [place] [address] Dr. Walker Gabriel Creatinine [Mass/Vol] 0.91 mg/dL Normal 0.55-1.02 [facility] Comment on above: Performed By: #### T SH, LIPID, CMP, URIC, T7, CRP #### [facility] [address] [place] [address] Dr. Walker Gabriel EGFR-AF HAITIAN >60 Normal >=60 [facility] Comment on above: Performed By: #### T SH, LIPID, CMP, URIC, T7, CRP #### [facility] [address] [place] [address] Dr. Walker Gabriel EGFR-NON AF HAITIAN >60 Normal >=60 [facility] Comment on above: Performed By: #### T SH, LIPID, CMP, URIC, T7, CRP #### [facility] [address] [place] [address] Dr. Walker Gabriel Globulin (S) [Mass/Vol] 4.7 g/dL Normal [facility] Comment on above: Performed By: #### T SH, LIPID, CMP, URIC, T7, CRP #### [facility] [address] [place] [address] Dr. Walker Gabriel Glucose [Mass/Vol] 87 mg/dL Normal 74-106 [facility] Comment on above: Performed By: #### T SH, LIPID, CMP, URIC, T7, CRP #### [facility] [address] [address] [address] Walker Gabriel Potassium [Moles/Vol] 4.3 mmol/L Normal 3.5-5.1 [facility] Comment on above: Performed By: #### T SH, LIPID, CMP, URIC, T7, CRP #### [facility] [address] [place] [address] Dr. Walker Gabriel Protein [Mass/Vol] 7.7 g/dL Normal 6.4-8.2 [facility] Comment on above: Performed By: #### T SH, LIPID, CMP, URIC, T7, CRP #### [facility] [address] [place] [address] Dr. Walker Gabriel Sodium [Moles/Vol] 135 mmol/L Critically low 136-[address] [facility] Comment on above: Performed By: #### T SH, LIPID, CMP, URIC, T7, CRP #### [facility] [address] [place] [address] Dr. Walker Gabriel Urea nitrogen [Mass/Vol] 21.0 mg/dL Critically high 7.0-18.0 [facility] Comment on above: Performed By: #### T SH, LIPID, CMP, URIC, T7, CRP #### [facility] [address] [place] [address] Dr. Walker Gabriel Urea nitrogen/Creatinine [Mass ratio] 23.1 mg/mg Normal [facility] Comment on above: Performed By: #### T SH, LIPID, CMP, URIC, T7, CRP #### [facility] [address] [place] [address] Dr. Walker Gabriel TSHon 04-18-2022 TSH 2.570 uIU/mL Normal 0.358-3.740 [facility] Comment on above: Performed By: #### T SH, LIPID, CMP, URIC, T7, CRP #### [facility] [address] [place] [address] Dr. Walker Gabriel URIC ACID SERUMon 04-18-2022 Urate [Mass/Vol] 5.7 mg/dL Normal 2.6-6.0 [facility] Comment on above: Performed By: #### T SH, LIPID, CMP, URIC, T7, CRP #### [facility] [address] [address] [address] Walker Gabriel US VENOUS DOPPLER L [...] by: JENNY ARIAS Date: 2022-04-18 18:43 Normal [facility] Clinical Supporton Clinical Support [id number] Rebecca Jewell 1985 [facility] Provider Department [facility]2022 [facility] No family history on file Reason for Visit and Comments: Worker's Compensation [732] Follow-up [975369] Concussion [548501] Normal [facility] Follow-Upon 04-03-2022 Follow-Up [id number] Rebecca Jewell 1985 [facility] 04/03/2022 260[facility] Close Cosign Required by: Rufino Perdomo MD[[id number]] No family history on file Level of Service:42198 [place] OFFICE/OUTPATIENT ESTABLISHED LOW MDM 20-29 MIN (GC) Reason for Visit and Comments: Pain [136] Edema [[id number]] Follow-up [132122] Normal [facility] Erroneous Encounteron 2021 Erroneous Encounter [id number] Rebecca Jewell 1985 [facility] Department [facility] 03/31/2022 [id number] ERNANDEZ [facility] No family history on file Reason for Visit and Comments: Error (VOID this visit) [77] Normal [facility] CNOVon 02-03-2022 CNOV Office Visit (NMUAMH ) NABILA JEWELL ([id number]) 1985 F Date Time Provider Department 02/03/22 11:00 AM CHAS ROMERO [facility] During your visit today, we recorded the following information about you: Pulse Blood pressure Weight Height 66/minute 117/84 122.7 kg 1.549 m Chas Romero DO 02/03/2022 11:27 AM Signed [facility] Follow up Visit SERVICE DATE: 02/03/2022 PCP: Smiley Urias MD [address] [place] [place] [address] Reason for Evaluation: Consultation requested by Self for an opinion regarding right leg weakness Family/Friend accompanying the patient today: none HPI: This is Ms. Nabila Jewell, a 36 year old female who presents to the [facility] with the chief complaint above. 02/03/2022: [...] after this. She went to [facility] in [place]. She was evaluated and did testing and [...] VIII: He (more content not included)... Normal [facility] NABILA JEWELL ([id number]) 1985 F Date Time Provider Department 01/30/22 [...] Status:Closed by CHAS ROMERO on 01/30/22 Normal [facility] MRI KNEE LT WO CONon 01-28- [...] by: SMILEY CALVILLO Date: 2022-01-28 12:18 Normal [facility] EMG(NEURO/NI)on 01-23-2022 [facility] MG MAMM DIAGNOSTIC 3D GREGORY CA Don 01-22-2022 MG MAMM DIAGNOSTIC 3D GREGORY CAD Patient: NABILA JEWELL. Exam Date: 01/22/2022 : 1985 Gender:F Ordering : DR SMILEY URIAS . Admission #: [id number] Family : Order #: [id number] CLICK HERE TO VIEW EXAM RADIOLOGY REPORT [...] Treatments None Family Cancers None LOCATION: [facility] BREAST COMPOSITION: Scattered areas fibroglandular [...] Gamble M.D. on 01/22/2022 at 15:30 Normal [facility] NABILA JEWELL ([id number]) 1985 F Date Time Provider Department 12/06/21 CHAS ROMERO [facility] During your visit today, we recorded the [...] Fully Assessed Reason for Visit: Insurance Authorization [[id number]] Prescriptions as of 12/08/2021 - potassium chloride [...] Encounter Status:Closed by SKY RAPP on 12/06/21 [facility] 11-15-2021 [facility] Telephone (NMUA) NABILA JEWELL ([id number]) 1985 F Date Time Provider Department 11/15/21 CHAS ROMERO [facility] During your visit today, we recorded the following information about you: Rosana Shaw 11/15/2021 10:02 AM Addendum Pt requesting Dr. Romero send in C9 to [facility] for EMG. Cecilyiva phone [phone] ext [phone] Kassy PLEASE FAX TO:[phone] Also needs this faxed to trademark [employer] [place], [place] [employer] and [employer]. [facility] Pt will call back with fax numbers. [...] Encounter Status:Closed by ROSANA VALVERDE on 04/03/22 [facility] CNOVon 11-12-2021 CNOV Office Visit (NMUA ) NABILA JEWELL ([id number]) 1985 F Date Time Provider Department 11/12/21 2:00 PM CHAS ROMERO [facility] During your visit today, we recorded the following information about you: Pulse Blood pressure Weight Height 69/minute 120/82 118.6 kg 1.549 m Chas Romero DO 11/12/2021 2:58 PM Signed [facility] New Patient Visit SERVICE DATE: 11/12/2021 PCP: Smiely Urias MD [address] [place] [address] Reason for Evaluation: Consultation requested by Self for an opinion regarding right leg weakness Family/Friend accompanying the patient today: none HPI: This is Ms. Nabila Jewell, a 36 year old female who presents to the [facility] with the chief complaint above. She had an injury at work (March 2021)-she fell and hit her head on a prep table and fell onto her knee. She had difficulty moving to get up after this. She went to [facility] in [place]. She was evaluated and did testing and [...] - FDI (more content not included)... Normal [facility] Javier 10-22-2021 CNPN Telephone (NENMMN) NABILA JEWELL ([id number]) 1985 F Date Time Provider Department 10/22/21 CHAS ROMERO [facility] During your visit today, we recorded the [...] Status:Closed by SKY RAPP on 10/22/21 Normal [facility] CARDIAC MACIE 3-6on 2 CK [Catalytic activity/Vol] 135 U/L Normal 30-135 [facility] Comment on above: Performed By: #### C MREP #### [facility] [address] [place] [address] Dr. Walker Gabriel CK.MB [Mass/Vol] 0.84 ng/mL Normal <=2.[address] [facility] Comment on above: Performed By: #### C MREP #### [facility] [address] [address] [address] Walker Gabriel HSTROP 8.5 pg/mL Normal 4.0-35.5 [facility] Comment on above: Result Comment: CUT- OFF POINTS HAVE BEEN ESTABLISHED BASED ON THE FOURTH UNIVERSAL DEFINITIONS OF MYOCARDIAL INFARCTION. THE UPPER REFERENCE LIMIT (URL) OF TROPONIN, DEFINED THE 99TH PERCENTILE OF cTnI DISTRIBUTION IN A REFERENCE POPULATION, HAS BEEN CONFIRMED THE DECISION THRESHOLD FOR LA DIAGNOSIS. Performed By: #### C MREP #### [facility] [address] [address] [address] Walker Gabriel CARDIAC MACIE ADMITon 022 CK [Catalytic activity/Vol] 114 U/L Normal 30-135 [facility] Comment on above: Performed By: #### T SH, LIPID, CMP, URIC, T7, CRP #### [facility] [address] [place] [address] Dr. Walker Gabriel CK.MB [Mass/Vol] 0.71 ng/mL Normal <=2.[address] [facility] Comment on above: Performed By: #### T SH, LIPID, CMP, URIC, T7, CRP #### [facility] [address] [address] [address] Walker Gabriel HSTROP 6.1 pg/mL Normal 4.0-35.5 [facility] Comment on above: Result Comment: CUT- OFF POINTS HAVE BEEN ESTABLISHED BASED ON THE FOURTH UNIVERSAL DEFINITIONS OF MYOCARDIAL INFARCTION. THE UPPER REFERENCE LIMIT (URL) OF TROPONIN, DEFINED THE 99TH PERCENTILE OF cTnI DISTRIBUTION IN A REFERENCE POPULATION, HAS BEEN CONFIRMED THE DECISION THRESHOLD FOR LA DIAGNOSIS. Performed By: #### T SH, LIPID, CMP, URIC, T7, CRP #### [facility] [address] [place] [address] Dr. Walker Gabriel COLLINS 43.0 ng/mL Normal <=61.5 [facility] Comment on above: Performed By: #### T SH, LIPID, CMP, URIC, T7, CRP #### [facility] [address] [place] [address] Dr. Walker Gabriel CBC AUTO DIFFon 09-06-2021 BASO # 0.0 103/ul Normal 0.0-0.1 [facility] Comment on above: Performed By: #### T SH, LIPID, CMP, URIC, T7, CRP #### [facility] [address] [place] [address] Dr. Walker Gabriel Basophils/100 WBC (Bld) 0.5 % Normal 0.2-2.0 [facility] Comment on above: Performed By: #### T SH, LIPID, CMP, URIC, T7, CRP #### [facility] [address] [place] [address] Dr. Walker Gabriel EO # 0.0 103/ul Normal 0.0-0.7 [facility] Comment on above: Performed By: #### T SH, LIPID, CMP, URIC, T7, CRP #### [facility] [address] [place] [address] Dr. Walker Gabriel Eosinophils/100 WBC (Bld) 0.1 % Critically low 0.9-7.0 [facility] Comment on above: Performed By: #### T SH, LIPID, CMP, URIC, T7, CRP #### [facility] [address] [place] [address] Dr. Walker Gabriel Erythrocyte distribution width (RBC) [Ratio] 12.3 % Normal 11.0-15.0 [facility] Comment on above: Performed By: #### T SH, LIPID, CMP, URIC, T7, CRP #### [facility] [address] [place] [address] Dr. Walker Gabriel Hematocrit (Bld) [Volume fraction] 41.4 % Normal 36.0-48.0 [facility] Comment on above: Performed By: #### T SH, LIPID, CMP, URIC, T7, CRP #### [facility] [address] [place] [address] Dr. Walker Gabriel Hemoglobin (Bld) [Mass/Vol] 13.6 g/dL Normal 12.0-16.0 [facility] Comment on above: Performed By: #### T SH, LIPID, CMP, URIC, T7, CRP #### [facility] [address] [place] [address] Dr. Walker Gabriel IG # 0.02 10e3/ul Normal 0.00-0.03 [facility] Comment on above: Performed By: #### T SH, LIPID, CMP, URIC, T7, CRP #### [facility] [address] [place] [address] Dr. Walker Gabriel IG % 0.2 % Normal 0.0-0.5 [facility] Comment on above: Performed By: #### T SH, LIPID, CMP, URIC, T7, CRP #### [facility] [address] [place] [address] Dr. Walker Gabriel LYMPH # 2.6 103/ul Normal 1.2-3.8 [facility] Comment on above: Performed By: #### T SH, LIPID, CMP, URIC, T7, CRP #### [facility] [address] [address] [address] Walker Gabriel Lymphocytes/100 WBC (Bld) 32.4 % Normal 20.5-60.0 [facility] Comment on above: Performed By: #### T SH, LIPID, CMP, URIC, T7, CRP #### [facility] [address] [place] [address] Dr. Walker Gabriel MANUAL DIFF REQ NO Normal [facility] Comment on above: Performed By: #### T SH, LIPID, CMP, URIC, T7, CRP #### [facility] [address] [place] [address] Dr. Walker Gabriel MCH (RBC) [Entitic mass] 28.8 pg Normal 26.7-34.0 [facility] Comment on above: Performed By: #### T SH, LIPID, CMP, URIC, T7, CRP #### [facility] [address] [place] [address] Dr. Walker Gabriel MCHC (RBC) [Mass/Vol] 32.9 g/dL Normal 29.9-35.2 [facility] Comment on above: Performed By: #### T SH, LIPID, CMP, URIC, T7, CRP #### [facility] [address] [place] [address] Dr. Walker Gabriel MCV (RBC) [Entitic vol] 87.5 fL Normal 81.0-99.0 [facility] Comment on above: Performed By: #### T SH, LIPID, CMP, URIC, T7, CRP #### [facility] [address] [place] [address] Dr. Walker Gabriel MONO # 0.4 103/ul Normal 0.3-0.8 [facility] Comment on above: Performed By: #### T SH, LIPID, CMP, URIC, T7, CRP #### [facility] [address] [place] [address] Dr. Walker Gabriel Monocytes/100 WBC (Bld) 5.0 % Normal 1.7-12.0 [facility] Comment on above: Performed By: #### T SH, LIPID, CMP, URIC, T7, CRP #### [facility] [address] [address] [address] Walker Gabriel NEUT # 5.0 103/ul Normal 1.4-6.5 [facility] Comment on above: Performed By: #### T SH, LIPID, CMP, URIC, T7, CRP #### [facility] [address] [place] [address] Dr. Walker Gabriel Neutrophils/100 WBC (Bld) 61.8 % Normal 43.0-75.0 [facility] Comment on above: Performed By: #### T SH, LIPID, CMP, URIC, T7, CRP #### [facility] [address] [place] [address] Dr. Walker Gabriel Platelet mean volume (Bld) [Entitic vol] 8.4 fL Critically low 9.5-13.5 [facility] Comment on above: Performed By: #### T SH, LIPID, CMP, URIC, T7, CRP #### [facility] [address] [address] [address] Walker Gabriel PLT 347 103/ul Normal 150-450 [facility] Comment on above: Performed By: #### T SH, LIPID, CMP, URIC, T7, CRP #### [facility] [address] [address] [address] Walker Gabriel RBC 4.73 106/ul Normal 4.20-5.40 [facility] Comment on above: Performed By: #### T SH, LIPID, CMP, URIC, T7, CRP #### [facility] [address] [address] [address] Walker Gabriel WBC 8.1 103/ul Normal 4.0-11.0 [facility] Comment on above: Performed By: #### T SH, LIPID, CMP, URIC, T7, CRP #### [facility] [address] [address] [address] Walker Gabriel CRPon 09-06-2021 CRP 0.7 mg/dL Normal <=1.0 [facility] Comment on above: Performed By: #### T SH, LIPID, CMP, URIC, T7, CRP #### [facility] [address] [place] [address] Dr. Walker Gabriel PROF CHEM 8 (BAS METB)on Anion gap [Moles/Vol] 10.2 mmol/L Normal [facility] Comment on above: Performed By: #### T SH, LIPID, CMP, URIC, T7, CRP #### [facility] [address] [place] [address] Dr. Walker Gabriel Calcium [Mass/Vol] 9.0 mg/dL Normal 8.4-10.[address] [facility] Comment on above: Performed By: #### T SH, LIPID, CMP, URIC, T7, CRP #### [facility] [address] [place] [address] Dr. Walker Gabriel Chloride [Moles/Vol] 99 mmol/L Normal 98-107 [facility] Comment on above: Performed By: #### T SH, LIPID, CMP, URIC, T7, CRP #### [facility] [address] [place] [address] Dr. Walker Gabriel CO2 [Moles/Vol] 26.5 mmol/L Normal 22.0-30.[address] [facility] Comment on above: Performed By: #### T SH, LIPID, CMP, URIC, T7, CRP #### [facility] [address] [place] [address] Dr. Walker Gabriel Creatinine [Mass/Vol] 1.19 mg/dL Critically high 0.52-1.04 [facility] Comment on above: Performed By: #### T SH, LIPID, CMP, URIC, T7, CRP #### [facility] [address] [place] [address] Dr. Walker Gabriel EGFR-AF HAITIAN >60 Normal >=[address] [facility] Comment on above: Performed By: #### T SH, LIPID, CMP, URIC, T7, CRP #### [facility] [address] [place] [address] Dr. Walker Gabriel EGFR-NON AF HAITIAN 51 mL/min/1.73m2 Critically low >=60 [facility] Comment on above: Performed By: #### T SH, LIPID, CMP, URIC, T7, CRP #### [facility] [address] [address] [address] Walker Gabriel Glucose [Mass/Vol] 105 mg/dL Normal 74-106 [facility] Comment on above: Performed By: #### T SH, LIPID, CMP, URIC, T7, CRP #### [facility] [address] [place] [address] Dr. Walker Gabriel Potassium [Moles/Vol] 3.7 mmol/L Normal 3.4-5.0 [facility] Comment on above: Performed By: #### T SH, LIPID, CMP, URIC, T7, CRP #### [facility] [address] [place] [address] Dr. Walker Gabriel Sodium [Moles/Vol] 132 mmol/L Critically low 137-[address] [facility] Comment on above: Performed By: #### T SH, LIPID, CMP, URIC, T7, CRP #### [facility] [address] [place] [address] Dr. Walker Gabriel Urea nitrogen [Mass/Vol] 15.0 mg/dL Normal 7.0-17.0 [facility] Comment on above: Performed By: #### T SH, LIPID, CMP, URIC, T7, CRP #### [facility] [address] [address] [address] Walker Gabriel Urea nitrogen/Creatinine [Mass ratio] 12.6 mg/mg Normal [facility] Comment on above: Performed By: #### T SH, LIPID, CMP, URIC, T7, CRP #### [facility] [address] [place] [address] Dr. Walker Gabriel SED RATE [facility] 2021 SED RATE 49 mm/hr Critically high <=20 [facility] Comment on above: Performed By: #### T SH, LIPID, CMP, URIC, T7, CRP #### [facility] [address] [place] [address] Dr. Walker Gabriel XR CHEST 2 Von [...] by: CANDICE PONCE Date: 2021-09-06 20:51 Normal [facility] Provider Letter FTon 04-09 Provider Letter [facility] April 09, 2021 Smiley Urias, [address] [facility] [place] [address] [place] [address] Re: NABILA JEWELL Date of : 1985 Thank you for your referral of Nabila Jewell who was seen on consultation for abscess x 2. I have enclosed my consultation note for your review. Sincerely, Edson Davalos MD General Surgery Normal [facility] Facesheeton 04-08-2021 Facesheet [id number]:127 Normal [facility] Ambulatory Clinical Summaryo n 04-03-2021 Ambulatory Clinical Summary {[id number] }[id number] Normal [facility] Physician Referralon 021 Physician Referral [id number] 00 [id number] 0CD:127 Normal [facility] SYPHILIS SCREENING WITH REFL EXon 03-06-2021 SYPHILIS TOTAL AB Non-Reactive Normal NONREACTIVE [facility] Comment on above: Result Comment: No s ignificant level of Treponema pallidum antibody detected. Repeat testing in 2 to 4 weeks may be considered if early infection or incubating syphilis infection is suspected. Performed By: #### S YPHR #### [facility] [address] [place] [address] BILIRUBIN,DIRECTon 1 Bilirubin.indirect [Mass/Vol] 0.1 mg/dL Normal 0.0 - 0.3 [facility] Comment on above: Performed By: #### D BILI #### [address] [id number] CBC AND DIFFERENTIALon 03-05 % AUTOMATED IMMATURE GRAN 0.3 % Normal 0.0 - 0.9 [facility] Comment on above: Result Comment: Cassia ture Granulocyte Count (IG) includes promyelocytes, myelocytes and metamyelocytes but does not include bands. Percent differential counts (%) should be interpreted in the context of the absolute cell counts (cells/L). Performed By: #### C BCDF #### [address] [id number] Basophils (Bld) [#/Vol] 0.02 10*3/uL Normal 0.00 - 0.10 [facility] Comment on above: Performed By: #### C BCDF #### [address] [id number] Basophils/100 WBC (Bld) 0.3 % Normal 0.0 - 2.0 [facility] Comment on above: Performed By: #### C BCDF #### [address] [id number] Eosinophils (Bld) [#/Vol] 0.04 10*3/uL Normal 0.00 - 0.70 [facility] Comment on above: Performed By: #### C BCDF #### [address] [id number] Eosinophils/100 WBC (Bld) 0.6 % Normal 0.0 - 6.0 [facility] Comment on above: Performed By: #### C BCDF #### [address] [id number] Erythrocyte distribution width (RBC) [Ratio] 12.2 % Normal 11.5 - 14.5 [facility] Comment on above: Performed By: #### C BCDF #### [address] [id number] Hematocrit (Bld) [Volume fraction] 38.3 % Normal 36.0 - 46.0 [facility] Comment on above: Performed By: #### C BCDF #### [address] [id number] Hemoglobin (Bld) [Mass/Vol] 12.0 g/dL Normal 12.0 - 16.0 [facility] Comment on above: Performed By: #### C BCDF #### [address] [id number] Lymphocytes (Bld) [#/Vol] 2.33 10*3/uL Normal 1.20 - 4.80 [facility] Comment on above: Performed By: #### C BCDF #### [address] [id number] Lymphocytes/100 WBC (Bld) 35.6 % Normal 13.0 - 44.0 [facility] Comment on above: Performed By: #### C BCDF #### [address] [id number] MCHC (RBC) [Mass/Vol] 31.3 g/dL Low 32.0 - 36.0 [facility] Comment on above: Performed By: #### C BCDF #### [address] [id number] MCV (RBC) [Entitic vol] 93 fL Normal 80 - 100 [facility] Comment on above: Performed By: #### C BCDF #### [address] [id number] Monocytes (Bld) [#/Vol] 0.34 10*3/uL Normal 0.10 - 1.00 [facility] Comment on above: Performed By: #### C BCDF #### [address] [id number] Monocytes/100 WBC (Bld) 5.2 % Normal 2.0 - 10.0 [facility] Comment on above: Performed By: #### C BCDF #### [address] [id number] Neutrophils (Bld) [#/Vol] 3.80 10*3/uL Normal 1.20 - 7.70 [facility] Comment on above: Performed By: #### C BCDF #### [address] [id number] Neutrophils/100 WBC (Bld) 58.0 % Normal 40.0 - 80.0 [facility] Comment on above: Performed By: #### C BCDF #### [address] [id number] Platelets (Bld) [#/Vol] 221 10*3/uL Normal 150 - 450 [facility] Comment on above: Performed By: #### C BCDF #### [address] [id number] RBC 4.13 x10E12/L Normal 4.00 - 5.20 [facility] Comment on above: Performed By: #### C BCDF #### [address] [id number] WBC (Bld) [#/Vol] 6.6 10*3/uL Normal 4.4 - 11.3 [facility] [place] Comment on above: Performed By: #### C BCDF #### [address] [id number] COMPREHENSIVE PANELon 2020 Albumin [Mass/Vol] 3.6 g/dL Normal 3.4 - 5.0 [facility] [place] Comment on above: Performed By: #### C MP #### [address] [id number] ALP [Catalytic activity/Vol] 77 U/L Normal 33 - 110 [facility] Comment on above: Performed By: #### C MP #### [address] [id number] ALT [Catalytic activity/Vol] 20 U/L Normal 7 - 45 [facility] Comment on above: Result Comment: Cony ents treated with Sulfasalazine may generate falsely decreased results for ALT. Performed By: #### C MP #### [address] [id number] Anion gap [Moles/Vol] 10 mmol/L Normal 10 - 20 [facility] Comment on above: Performed By: #### C MP #### [address] [id number] AST [Catalytic activity/Vol] 24 U/L Normal 9 - 39 [facility] Comment on above: Performed By: #### C MP #### [address] [id number] Bilirubin [Mass/Vol] 0.5 mg/dL Normal 0.0 - 1.2 [facility] Comment on above: Performed By: #### C MP #### [address] [id number] Calcium [Mass/Vol] 9.2 mg/dL Normal 8.6 - 10.3 [facility] [place] Comment on above: Performed By: #### C MP #### [address] [id number] Chloride [Moles/Vol] 101 mmol/L Normal 98 - 107 [facility] Comment on above: Performed By: #### C MP #### [address] [id number] Creatinine [Mass/Vol] 0.85 mg/dL Normal 0.50 - 1.05 [facility] Comment on above: Performed By: #### C MP #### [address] [id number] GFR- AM. >60 Normal >60 [facility] Comment on above: Result Comment: CALC ULATIONS OF ESTIMATED GFR ARE PERFORMED USING THE MDRD STUDY EQUATION FOR THE IDMS-TRACEABLE CREATININE METHODS. CLIN CHEM 2007;53:766-72 Performed By: #### C MP #### [address] [id number] GFR-NON AM. >60 Normal >60 [facility] Comment on above: Performed By: #### C MP #### [address] [id number] Glucose [Mass/Vol] 75 mg/dL Normal 74 - 99 [facility] [place] Comment on above: Performed By: #### C MP #### [address] [id number] HCO3 (Bld) [Moles/Vol] 30 mmol/L Normal 21 - 32 [facility] Comment on above: Performed By: #### C MP #### [address] [id number] Potassium [Moles/Vol] 4.1 mmol/L Normal 3.5 - 5.3 [facility] Comment on above: Performed By: #### C MP #### [address] [id number] Protein [Mass/Vol] 7.0 g/dL Normal 6.4 - 8.2 [facility] [place] Comment on above: Performed By: #### C MP #### [address] [id number] Sodium [Moles/Vol] 137 mmol/L Normal 136 - 145 [facility] [place] Comment on above: Performed By: #### C MP #### [address] [id number] Urea nitrogen [Mass/Vol] 21 mg/dL Normal 6 - 23 [facility] Comment on above: Performed By: #### C MP #### [address] [id number] HEPATITIS PANEL,ACUTE (HCFA) on 03-05-2021 HEPATITIS B CORE AB,IGM Non-Reactive Normal NONREACTIVE [facility] Comment on above: Result Comment: Resu lts from patients taking biotin supplements or receiving high-dose biotin therapy should be interpreted with caution due to possible interference with this test. Providers may contact their local laboratory for further information. Performed By: #### H EPA2 #### [facility] [address] [place] [address] HEPATITIS C AB Non-Reactive Normal NONREACTIVE [facility] Comment on above: Result Comment: Resu lts from patients taking biotin supplements or receiving high-dose biotin therapy should be interpreted with caution due to possible interference with this test. Providers may contact their local laboratory for further information. Performed By: #### H EPA2 #### [facility] [address] [place] [id number] HEPATITIS A AB-IGM Non-Reactive Normal NONREACTIVE [facility] Comment on above: Result Comment: Biot in interference may cause falsely decreased results. Patients taking a Biotin dose of up to 5 mg/day should refrain from taking Biotin for 24 hours before sample collection. Providers may contact their local laboratory for further information. Performed By: #### H EPA2 #### [facility] [address] [place] [id number] HEP.B SURFACE AG Non-Reactive Normal NONREACTIVE [facility] Comment on above: Result Comment: Biot in interference may cause falsely decreased results. Patients taking a Biotin dose of up to 5 mg/day should refrain from taking Biotin for 24 hours before sample collection. Providers may contact their local laboratory for further information. Performed By: #### H EPA2 #### [facility] [address] [place] [id number] HIV 1/2 ANTIGEN/ANTIBODY SCR EEN WITH REFLEX TO CONFIRMATIONon 03-05-2021 HIV 1/2 AG/AB SCREEN Non-Reactive Normal NONREACTIVE [facility] Comment on above: Result Comment: HIV Ag/Ab screen is performed using the Siemens AtellClever Sense HIV Ag/Ab Combo assay which detects the presence of HIV p24 antigen as well as antibodies to HIV-1 (Group M and O) and HIV-2. . No laboratory evidence of HIV infection. If acute HIV infection is suspected, consider testing for HIV RNA by PCR (viral load). Performed By: #### H IV #### [facility] [address] [place] [id number] SYPHILIS SCREENING WITH REFL EXon 03-05-2021 Lab Specimen Source Normal [facility] Comment on above: Performed By: #### S YPHR #### [facility] [address] [place] [address] Performed By: #### H EPA2 #### [facility] [address] [place] [address] Performed By: #### H IV #### [facility] [address] [place] [id number] HEPATITIS PANEL,ACUTE (HCFA) on 02-29-2020 HEPATITIS A AB-IGM NONREACTIVE Normal NONREACTIVE [facility] Comment on above: Result Comment: Biot in interference may cause falsely decreased results. Patients taking a Biotin dose of up to 5 mg/day should refrain from taking Biotin for 24 hours before sample collection. Providers may contact their local laboratory for further information. Performed By: #### H EPA2 #### [facility] [address] [place] [id number] HEPATITIS C AB NONREACTIVE Normal NONREACTIVE [facility] Comment on above: Result Comment: Resu lts from patients taking biotin supplements or receiving high-dose biotin therapy should be interpreted with caution due to possible interference with this test. Providers may contact their local laboratory for further information. Performed By: #### H EPA2 #### [facility] [address] [place] [id number] HEPATITIS B CORE AB,IGM NONREACTIVE Normal NONREACTIVE [facility] Comment on above: Result Comment: Resu lts from patients taking biotin supplements or receiving high-dose biotin therapy should be interpreted with caution due to possible interference with this test. Providers may contact their local laboratory for further information. Performed By: #### H EPA2 #### [facility] [address] [place] [id number] HEP.B SURFACE AG NONREACTIVE Normal NONREACTIVE [facility] Comment on above: Result Comment: Biot in interference may cause falsely decreased results. Patients taking a Biotin dose of up to 5 mg/day should refrain from taking Biotin for 24 hours before sample collection. Providers may contact their local laboratory for further information. Performed By: #### H EPA2 #### [facility] [address] [place] [id number] HIV ANTIGEN/ANTIBODY SCREENo n 02-29-2020 HIV AG/AB SCREEN NONREACTIVE Normal NONREACTIVE [facility] Comment on above: Result Comment: HIV Ag/Ab screen is performed using the Siemens KlickThru HIV Ag/Ab Combo assay which detects the presence of HIV p24 antigen as well as antibodies to HIV-1 (Group M and O) and HIV-2. Performed By: #### H IV #### [facility] [address] [place] [address] SYPHILIS SCREENING WITH REFL EXon 02-29-2020 SYPHILIS TOTAL AB NONREACTIVE Normal NONREACTIVE [facility] Comment on above: Result Comment: No s ignificant level of Treponema pallidum antibody detected. Repeat testing in 2 to 4 weeks may be considered if early infection or incubating syphilis infection is suspected. Performed By: #### S YPHR #### [facility] [address] [place] [address] BILIRUBIN,DIRECTon 0 Bilirubin.direct [Mass/Vol] 0.1 mg/dL Normal 0.0 - 0.3 [facility] Comment on above: Performed By: #### D BILI #### [address] [id number] CBCon 02-28-2020 Erythrocyte distribution width (RBC) [Ratio] 12.6 % Normal 11.5 - 14.5 [facility] Comment on above: Performed By: #### C BC #### [address] [id number] Hematocrit (Bld) [Volume fraction] 38.4 % Normal 36.0 - 46.0 [facility] Comment on above: Performed By: #### C BC #### [address] [id number] Hemoglobin (Bld) [Mass/Vol] 12.5 g/dL Normal 12.0 - 16.0 [facility] Comment on above: Performed By: #### C BC #### [address] [id number] MCHC (RBC) [Mass/Vol] 32.6 g/dL Normal 32.0 - 36.0 [facility] Comment on above: Performed By: #### C BC #### [address] [id number] MCV (RBC) [Entitic vol] 88 fL Normal 80 - 100 [facility] Comment on above: Performed By: #### C BC #### [address] [id number] Platelets (Bld) [#/Vol] 350 10*3/uL Normal 150 - 450 [facility] Comment on above: Performed By: #### C BC #### [address] [id number] RBC (Bld) [#/Vol] 4.34 x10E12/L Normal 4.00 - 5.20 [facility] Comment on above: Performed By: #### C BC #### [address] [id number] WBC (Bld) [#/Vol] 5.6 10*3/uL Normal 4.4 - 11.3 [facility] Comment on above: Performed By: #### C BC #### [address] [id number] COMPREHENSIVE PANELon 2019 Albumin [Mass/Vol] 4.1 g/dL Normal 3.4 - 5.0 [facility] Comment on above: Performed By: #### C MP #### [address] [id number] ALP [Catalytic activity/Vol] 105 U/L Normal 33 - 110 [facility] Comment on above: Performed By: #### C MP #### [address] [id number] ALT [Catalytic activity/Vol] 24 U/L Normal 7 - 45 [facility] Comment on above: Result Comment: Cony ents treated with Sulfasalazine may generate falsely decreased results for ALT. Performed By: #### C MP #### [address] [id number] Anion gap [Moles/Vol] 10 mmol/L Normal 10 - 20 [facility] Comment on above: Performed By: #### C MP #### [address], [place] [id number] AST [Catalytic activity/Vol] 22 U/L Normal 9 - 39 [facility] Comment on above: Performed By: #### C MP #### [address] [id number] Bilirubin [Mass/Vol] 0.4 mg/dL Normal 0.0 - 1.2 [facility] Comment on above: Performed By: #### C MP #### [address] [id number] Calcium [Mass/Vol] 9.1 mg/dL Normal 8.6 - 10.3 [facility] Comment on above: Performed By: #### C MP #### [address] [id number] Chloride [Moles/Vol] 101 mmol/L Normal 98 - 107 [facility] Comment on above: Performed By: #### C MP #### [address] [id number] Creatinine [Mass/Vol] 0.79 mg/dL Normal 0.50 - 1.05 [facility] Comment on above: Performed By: #### C MP #### [address] [id number] GFR- AM. >60 Normal >60 [facility] Comment on above: Result Comment: CALC ULATIONS OF ESTIMATED GFR ARE PERFORMED USING THE MDRD STUDY EQUATION FOR THE IDMS-TRACEABLE CREATININE METHODS. CLIN CHEM 2007;53:766-72 Performed By: #### C MP #### [address] [id number] GFR-NON AM. >60 Normal >60 [facility] Comment on above: Performed By: #### C MP #### [address] [id number] Glucose [Mass/Vol] 90 mg/dL Normal 74 - 99 [facility] Comment on above: Performed By: #### C MP #### [address], [place] [id number] HCO3 (Bld) [Moles/Vol] 28 mmol/L Normal 21 - 32 [facility] Comment on above: Performed By: #### C MP #### [address] [id number] Potassium [Moles/Vol] 4.4 mmol/L Normal 3.5 - 5.3 [facility] Comment on above: Performed By: #### C MP #### [address] [id number] Protein [Mass/Vol] 8.1 g/dL Normal 6.4 - 8.2 [facility] Comment on above: Performed By: #### C MP #### [address] [id number] Sodium [Moles/Vol] 135 mmol/L Low 136 - 145 [facility] Comment on above: Performed By: #### C MP #### [address] [id number] Urea nitrogen [Mass/Vol] 21 mg/dL Normal 6 - 23 [facility] Comment on above: Performed By: #### C MP #### [address] [id number] SYPHILIS SCREENING WITH REFL EXon 02-28-2020 Lab Specimen Source Normal [facility] Comment on above: Performed By: #### S YPHR #### [facility] [address] [place] [address] Performed By: #### H IV #### [facility] [address] [place] [address] Performed By: #### H EPA2 #### [facility] [address] [place] [address] APTTon 08-13-2017 aPTT 27.9 s Normal 23.2-34.4 [facility] Comment on above: Result Comment: Perf ormed at [place] [address] [place] [address] [phone] Performed By: #### C DP, PT, PTT, BNP, BMP, TROPI ####[address] [place] [address] Basic Metabolic Profon 08-13 (cont.) Normal [facility] Comment on above: Result Comment: Aver age GFR for 30-39 years old: 107 mL/min/1.73sq mChronic Kidney Disease: <60 mL/min/1.73sq mKidney failure: <15 mL/min/1.73sq meGFR calculated using average adult body mass. Additional eGFR calculator available at:http://www.WatrHub/multiple_crcl_2012.htm Performed By: #### C DP, PT, PTT, BNP, BMP, TROPI ####[address] [place] [address] Anion gap 11 mmol/L Normal 9-17 [facility] Comment on above: Performed By: #### C DP, PT, PTT, BNP, BMP, TROPI ####[address] [place] [address] BUN/CRE Ratio 21 High 9-20 [facility] Comment on above: Performed By: #### C DP, PT, PTT, BNP, BMP, TROPI ####[address] [place] [address] Calcium 9.6 mg/dL Normal 8.6-10.4 [facility] Comment on above: Performed By: #### C DP, PT, PTT, BNP, BMP, TROPI ####[address] [place] [address] Chloride 96 mmol/L Low 98-107 [facility] Comment on above: Performed By: #### C DP, PT, PTT, BNP, BMP, TROPI ####[address] [place] [address] CO2 31 mmol/L Normal 20-31 [facility] Comment on above: Performed By: #### C DP, PT, PTT, BNP, BMP, TROPI ####[address] [place] [address] Creatinine 0.73 mg/dL Normal 0.50-0.90 [facility] Comment on above: Performed By: #### C DP, PT, PTT, BNP, BMP, TROPI ####[address] [place] [address] eGFR (non-black) mL/min/{1.73_m2} Normal >60 [facility] Comment on above: Performed By: #### C DP, PT, PTT, BNP, BMP, TROPI ####[address] [place] [address] Glucose mass conc 101 mg/dL High 70-99 [facility] Comment on above: Performed By: #### C DP, PT, PTT, BNP, BMP, TROPI ####[address] [place] [address] Potassium molar conc 3.2 mmol/L Low 3.7-5.3 [facility] Comment on above: Performed By: #### C DP, PT, PTT, BNP, BMP, TROPI ####[address] [place] [address] Sodium 138 mmol/L Normal 135-144 [facility] Comment on above: Performed By: #### C DP, PT, PTT, BNP, BMP, TROPI ####[address] [place] [address] Staging: Normal [facility] Comment on above: Result Comment: Stag e 1: Some kidney damage normal GFRStage 2: Mild kidney damage GFR 60-89Stage 3: Moderate kidney damage GFR 30-59Stage 4: Severe kidney damage GFR 15-29Stage 5: Severe kidney damage GFR <15ESRD - chronic treatment by dialysis or transplantPerformed at [address] [place] [address] Performed By: #### C DP, PT, PTT, BNP, BMP, TROPI ####[address] [place] [address] Urea nitrogen 15 mg/dL Normal 6-20 [facility] Comment on above: Performed By: #### C DP, PT, PTT, BNP, BMP, TROPI ####[address] [place] [address] Brain Natri. Peptideon 08-13 BNP pg/mL Normal <300 [facility] Comment on above: Result Comment: Pro- BNP results cannot be compared to BNP results. Performed By: #### C DP, PT, PTT, BNP, BMP, TROPI ####[address] [place] [address] BNP Normal [facility] Comment on above: Result Comment: Pro- BNP Reference Range:Rule Out: <300Grey Zone: Age <50 300-450 Age 50-75 300-900 Age >75 300-1800Usually represents mild to moderate HF but other cardiopulmonary causes cannot be ruled out.Rule In: Age <50 >450 Age 50-75 >900 Age >75 >1800Performed at [address] [place] [address] Performed By: #### C DP, PT, PTT, BNP, BMP, TROPI ####[address] [place] [address] CBC with Diffon 08-13-2017 Abs. Basophil 0.00 k/uL Normal 0.0-0.2 [facility] Comment on above: Result Comment: Perf ormed at [address] [place] [address] Performed By: #### C DP, PT, PTT, BNP, BMP, TROPI ####[address] [place] [address] Abs.Neutrophil (Seg) 4.50 k/uL Normal 1.8-7.7 [facility] Comment on above: Performed By: #### C DP, PT, PTT, BNP, BMP, TROPI ####[address] , [facility]83 Basophils/100 WBC Auto (Bld) 0 % Normal 0-2 [facility] Comment on above: Performed By: #### C DP, PT, PTT, BNP, BMP, TROPI ####[address] [place] [address] Eosinophils 0.20 10*3/uL Normal 0.0-0.4 [facility] Comment on above: Performed By: #### C DP, PT, PTT, BNP, BMP, TROPI ####[address] , [facility]83 Eosinophils/100 leukocytes 2 % Normal 0-8 [facility] Comment on above: Performed By: #### C DP, PT, PTT, BNP, BMP, TROPI ####[address] [place] [address] Erythrocyte distribution width Auto Ratio (RBC) 15.0 % Normal 12.1-15.2 [facility] Comment on above: Performed By: #### C DP, PT, PTT, BNP, BMP, TROPI ####[address] [place] [address] Erythrocytes (RBC) 4.75 10*6/uL Normal 4.0-5.2 [facility] Comment on above: Performed By: #### C DP, PT, PTT, BNP, BMP, TROPI ####[address] [place] [address] Hematocrit (HCT) 41.0 % Normal 36-46 [facility] Comment on above: Performed By: #### C DP, PT, PTT, BNP, BMP, TROPI ####[address] , [facility]83 Hemoglobin mass conc (Bld) 13.7 g/dL Normal 12.0-16.0 [facility] Comment on above: Performed By: #### C DP, PT, PTT, BNP, BMP, TROPI ####[address] [place] [address] Lymphocytes 2.60 10*3/uL Normal 1.0-4.8 [facility] Comment on above: Performed By: #### C DP, PT, PTT, BNP, BMP, TROPI ####[address] , [facility]83 Lymphocytes/100 leukocytes 34 % Normal 24-44 [facility] Comment on above: Performed By: #### C DP, PT, PTT, BNP, BMP, TROPI ####[address] , [facility]83 MCH 28.8 pg Normal 26-34 [facility] Comment on above: Performed By: #### C DP, PT, PTT, BNP, BMP, TROPI ####[address] , [facility]83 MCHC mass conc (RBC) 33.4 g/dL Normal 31-37 [facility] Comment on above: Performed By: #### C DP, PT, PTT, BNP, BMP, TROPI ####[address] [place] [address] MCV 86.3 fL Normal 80-100 [facility] Comment on above: Performed By: #### C DP, PT, PTT, BNP, BMP, TROPI ####[address] [place] [address] Monocytes 0.40 10*3/uL Normal 0.0-1.0 [facility] Comment on above: Performed By: #### C DP, PT, PTT, BNP, BMP, TROPI ####[address] [place] [address] Monocytes/100 leukocytes 6 % Normal 0-12 [facility] Comment on above: Performed By: #### C DP, PT, PTT, BNP, BMP, TROPI ####[address] [place] [address] Neutrophil (Seg) 58 % Normal 36-66 [facility] Comment on above: Performed By: #### C DP, PT, PTT, BNP, BMP, TROPI ####[address] [place] [address] Platelet mean volume (PMV) 6.7 fL Normal 6.0-12.0 [facility] Comment on above: Performed By: #### C DP, PT, PTT, BNP, BMP, TROPI ####[address] [place] [address] Platelets 322 10*3/uL Normal 140-450 [facility] Comment on above: Performed By: #### C DP, PT, PTT, BNP, BMP, TROPI ####[address] [place] [address] WBC (Leukocytes) 7.7 10*3/uL Normal 3.5-11.0 [facility] Comment on above: Performed By: #### C DP, PT, PTT, BNP, BMP, TROPI ####[address] [place] [address] Auto Diff Performed NOT REPORTED Normal [facility] Comment on above: Performed By: #### C DP, PT, PTT, BNP, BMP, TROPI ####[address] [place] [address] Erythrocyte morphology NOT REPORTED Normal [facility] Comment on above: Performed By: #### C DP, PT, PTT, BNP, BMP, TROPI ####[address] [place] [address] Erythrocytes (RBC) NOT REPORTED Normal [facility] Comment on above: Performed By: #### C DP, PT, PTT, BNP, BMP, TROPI ####[address] [place] [address] Granulocytes/100 WBC (Bld) NOT REPORTED Normal 0.00-0.30 [facility] Comment on above: Performed By: #### C DP, PT, PTT, BNP, BMP, TROPI ####[address] [place] [address] Immature granulocytes #/vol (Bld) NOT REPORTED Normal 0 [facility] Comment on above: Performed By: #### C DP, PT, PTT, BNP, BMP, TROPI ####[address] [place] [address] Platelets NOT REPORTED Normal [facility] Comment on above: Performed By: #### C DP, PT, PTT, BNP, BMP, TROPI ####[address] [place] [address] WBC Morphology NOT REPORTED Normal [facility] Comment on above: Performed By: #### C DP, PT, PTT, BNP, BMP, TROPI ####[address] [place] [address] ED Provider Noteon 8 HIM IP Note OR Rat Trapper Normal [facility] PTon 08-13-2017 INR Coag RelTime (PPP) 0.9 {INR} Normal 0.9-1.2 [facility] Comment on above: Result Comment: Perf ormed at [address] [place] [address] Performed By: #### C DP, PT, PTT, BNP, BMP, TROPI ####[address] [place] [address] Prothrombin time (PT) Coag time (PPP) 9.7 s Normal 9.7-12.2 [facility] Comment on above: Performed By: #### C DP, PT, PTT, BNP, BMP, TROPI ####[address] [place] [address] Troponinon 08-13-2017 Troponin I.cardiac mass conc Normal [facility] Comment on above: Result Comment: Refe rence Range: <0.03 Within reference range. 0.03-0.09 Possible myocardial damage.Repeat at appropriate intervals to rule out chronic elevation. >= 0.10 Indicative of myocardial damage.Patients with high levels of Biotin oral intake (i.e >5mg/day) may have falsely decreased Troponin T levels. Samples collected within 8 hours of biotin intake may require additional information for diagnosis.Performed at [address] [place] [id number] [phone]. Performed By: #### C DP, PT, PTT, BNP, BMP, TROPI ####[address] [place] [address] Troponin T.cardiac mass conc ug/L Normal <0.03 [facility] Comment on above: Result Comment: Trop onin T results cannot be compared to Troponin-I results. Performed By: #### C DP, PT, PTT, BNP, BMP, TROPI ####[address] [place] [address] XR CHEST PORTABLEon 08-13-19 18 XR CHEST [...] by:RACHEL Haskinsigned by:Sruthi Mo MD08/13/17inal result Normal [facility] Vital Signs Date Time Vital Sign Value Performing Clinician Facility 02-03-2022 10:50-0400 Body height 154.9 cm Chas Romero DO Work Phone: [facility] 02-03-2022 10:50-0400 Body weight 122.7 kg Chas Romero DO Work Phone: [facility] 02-03-2022 10:50-0400 Diastolic blood pressure 84 mm[Hg] Chas Romero DO Work Phone: [facility] 02-03-2022 10:50-0400 Heart rate 66 /min Chas Romero DO Work Phone: [facility] 02-03-2022 10:50-0400 SaO2% (BldA) [Mass fraction] 98 % Chas Romero DO Work Phone: [facility] 02-03-2022 10:50-0400 Systolic blood pressure 117 mm[Hg] Chas Romero DO Work Phone: [facility] 01-01-2022 11:45-0400 Body height 155.57 cm Rolando Miracle Other [employer] Other 01-01-2022 11:45-0400 Body mass index (BMI) [Ratio] 42.12 kg/m2 Rolando Miracle Other [employer] Other 01-01-2022 11:45-0400 Body weight 101.97 kg Rolando Miracle Other [employer] Other 11-13-2021 10:45-0400 Body height 155.57 cm Rolando Miracle Other [employer] Other 11-13-2021 10:45-0400 Body mass index (BMI) [Ratio] 42.12 kg/m2 Rolando Miracle Other [employer] Other 11-13-2021 10:45-0400 Body weight 101.97 kg Rolando Miracle Other [employer] Other 11-12-2021 13:49-0400 Body height 154.9 cm Chas Romero DO Work Phone: [facility] 11-12-2021 13:49-0400 Body weight 118.62 kg Chas Romero DO Work Phone: [facility] 11-12-2021 13:49-0400 Diastolic blood pressure 82 mm[Hg] Chas Romero DO Work Phone: [facility] 11-12-2021 13:49-0400 Heart rate 69 /min Chas Romero DO Work Phone: [facility] 11-12-2021 13:49-0400 SaO2% (BldA) [Mass fraction] 100 % Chas Romero DO Work Phone: [facility] 11-12-2021 13:49-0400 Systolic blood pressure 120 mm[Hg] Chas Romero DO Work Phone: [facility] 09-18-2021 11:15-0400 Body height 155.57 cm Rolando Turner Other [employer] Other 09-18-2021 11:15-0400 Body mass index (BMI) [Ratio] 42.12 kg/m2 Rolando Turner Other [employer] Other 09-18-2021 11:15-0400 Body weight 101.97 kg Rolando Turner Other [employer] Other 07-24-2021 11:15-0500 Body height 155.57 cm Rolando Turner Other [employer] Other 07-24-2021 11:15-0500 Body mass index (BMI) [Ratio] 47.03 kg/m2 Rolando Turner Other [employer] Other 07-24-2021 11:15-0500 Body weight 113.85 kg Rolando Turner Other [employer] Other 06-12-2021 11:00-0500 Body height 155.57 cm Rolando Miracle Other [employer] Other 06-12-2021 11:00-0500 Body mass index (BMI) [Ratio] 46.85 kg/m2 Rolando Miracle Other [employer] Other 06-12-2021 11:00-0500 Body weight 113.4 kg Rolando Miracle Other [employer] Other 05-15-2021 14:00-0500 Body height 155.57 cm Rolando Miracle Other [employer] Other 05-15-2021 14:00-0500 Body mass index (BMI) [Ratio] 42.12 kg/m2 Rolando Miracle Other [employer] Other 05-15-2021 14:00-0500 Body weight 101.97 kg Rolando Miracle Other [employer] Other 04-17-2021 10:30-0400 Body height 155.57 cm Rolando Miracle Other [employer] Other 04-17-2021 10:30-0400 Body mass index (BMI) [Ratio] 42.12 kg/m2 Rolando Miracle Other [employer] Other 04-17-2021 10:30-0400 Body weight 101.97 kg Rolando Miracle Other [employer] Other Encounters Encounter Date Encounter Type Care Provider Facility Start: 02-10-2024 ambulatory Luiz Garsia acility:[facility] Start: 07-13-2023 End: 07-14-2023 ambulatory Fabián Archer MD Facility:[facility] Start: 06-15-2023 End: 06-16-2023 ambulatory Fabián Archer MD Facility:[facility] Start: 04-27-2023 End: 04-28-2023 ambulatory Fabián Archer MD Facility:[facility] Start: 03-04-2023 ambulatory [facility] Start: 02-23-2023 ambulatory [facility] Start: 01-12-2023 ambulatory [facility] Start: 01-01-2023 End: 01-01-2023 ambulatory [facility] Start: 12-01-2022 ambulatory [facility] Start: 09-29-2022 ambulatory [facility] Start: 09-15-2022 ambulatory [facility] Start: 09-15-2022 Encounter for other preprocedural examination [facility] Start: 08-22-2022 End: 08-23-[address] SMILEY URIAS . Facility:[facility] Start: 08-21-2022 ambulatory CAROLE PONCE [facility] Start: 08-06-2022 ambulatory PARRISH MCDONOUGH [facility] Start: 07-02-2022 ambulatory PASCUAL [facility] Start: 05-15-2022 End: 05-15-2022 ambulatory [facility] Start: 05-12-2022 End: 05-13-2022 ambulatory [facility] Start: 05-05-2022 End: 05-06-2022 ambulatory [facility] Start: 04-30-2022 ambulatory PASCUAL [facility] Start: 04-18-2022 End: 04-19-[address] SMILEY URIAS . Facility:[facility] Start: 04-17-2022 ambulatory MARISA [facility] Start: 04-03-2022 End: 04-03-2022 ambulatory RUFINO ROCAWILEY [facility] Start: 04-01-2022 End: 04-01-2022 ambulatory MARISA [facility] Start: 03-06-2022 ambulatory SMILEY URIAS Facility[facility] Start: 02-03-2022 End: 02-03-2022 ambulatory SMILEY URIAS Facility:[facility] Start: 02-03-2022 End: 02-03-2022 Patient encounter [...] Start: 01-23-2022 End: 01-23-2022 ambulatory SMILEY URIAS Facility:[facility] Start: 01-23-2022 End: 01-23-2022 ambulatory Emg 400) Work Phone: Neurology Comment on above: EMG Start: 01-23-2022 End: 01-23-2022 Patient encounter procedure Emg 2 Neur Rej (Max Weight: 400) Work Phone: ANDREA SAUCEDA [facility] Start: 01-22-2022 End: 01-23-[address] SMILEY URIAS . Facility:[facility] Start: 01-13-2022 End: 01-14-2022 ambulatory NUZHAT ARZOLA Facility:[facility] Start: 01-01-2022 End: 01-01-2022 ambulatory Rolando Turner Other [employer] Other Start: 01-01-2022 Office outpatient vi sit 15 minutes [facility] Start: 12-06-2021 Telephone encounter Chas laws DO Work Phone: Neurology Comment on above: Insurance Authorizat ion Start: 11-13-2021 End: 11-13-2021 ambulatory Rolando Turner Other [employer] Other Start: 11-13-2021 Office outpatient vi sit 15 minutes Rolando Turner [facility] Start: 11-12-2021 End: 11-12-2021 ambulatory CHAS ROMERO Facility:[facility] Start: 11-12-2021 End: 11-12-2021 Patient encounter procedure Chas Romero DO Work Phone: Neurology Comment on above: Right leg weakness ( Primary Dx) Start: 10-22-2021 Telephone encounter Chas laws DO Work Phone: Neurology Comment on above: Received Outside [facility] Start: 10-02-2021 End: 10-16-[address] SMILEY URIAS . Facility: Start: 09-30-2021 End: 09-30-2021 ambulatory Rolando Turner Other [employer] Other Start: 09-30-2021 Telephone encounter Rolando POWELL [facility] Start: 09-24-2021 End: 09-26-2021 ambulatory UNKNOWN PROVIDER Facility:[facility] Start: 09-18-2021 End: 09-18-2021 ambulatory Rolando Turner Other [employer] Other Start: 09-18-2021 Office outpatient vi sit 15 minutes Rolando Turner [facility] Start: 09-06-2021 End: 09-07-2021 ambulatory PRETTY BEST Facility: Start: 07-24-2021 End: 07-24-2021 ambulatory Rolando Turner Other [employer] Other Start: 07-24-2021 Office outpatient vi sit 15 minutes Rolando Turner [facility] Start: 06-12-2021 End: 06-12-2021 ambulatory Rolando Turner Other [employer] Other Start: 06-12-2021 Office outpatient vi sit 15 minutes Rolando Turner [facility] Start: 05-15-2021 End: 05-15-2021 ambulatory Rolando Turner Other [employer] Other Start: 05-15-2021 Office outpatient vi sit 15 minutes Rolando Turner [facility] Start: 04-17-2021 Office outpatient ne w 45 minutes Rolando Turner [facility] Start: 08-13-2017 End: 08-13-2017 Emergency department patient visit EDSON VILLEGAS [facility] Procedures Date Procedure Procedure Detail Performing [...] EDSON ZAMAN Start: 08-13-2017 INSERT PERIPHERAL IV LA CODY VILLEGAS Start: 08-13-2017 TELEMETRY MONITORING ALPESH CODY VILLEGAS Start: 08-13-2017 VITAL SIGNS EDSON ZAMAN Plan of Treatment Date Care Activity Detail Author Start: 02-27-2022 Influenza vaccination C [facility] Start: 09-01-2015 HPV TESTING HPV TESTING [facility] Start: 2006 PAP TESTING PAP TESTING [facility] Start: 2004 Urine microalbumin profile DTAP,TDAP,TD (1 - Tdap) [facility] Start: 09-01-2003 ANNUAL 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 ANNUAL PCP TEAM CHRONIC DISEASE VISIT [facility] Start: 09-01-2003 BP CONTROLLED (<130/80) BP CON TROLLED (<130/80) [facility] Start: 09-01-2003 HEPATITIS C SCREENING HEPATITIS C SC MARYLU [facility] Start: 09-01-2003 HIV SCREENING HIV SCREENING [facility] Start: 1997 Adult depression screening assessment DEPRESSION SCREENING [facility] Start: 1990 COVID-19 VACCINE (#1) COVID-19 VACCI NE (#1) [facility] Start: 1990 COVID-19 VACCINE (1) COVID-19 VACCIN E (1) [facility] Start: 03-03-1986 COVID-19 VACCINE (#1) COVID-19 VACCI NE (#1) [facility] Start: 1985 HEPATITIS B (1 of 3 - 3-dose series) HEPATITIS B (1 of 3 - 3-dose series) [facility] End: 11-12-2022 EMG(NEURO/NI) EMG(NEURO/NI) EMG Routine Right leg weakness 1 Occurrences starting 11/12/2021 until 11/12/2022 [facility] Work Phone: Comment on above: 1 Occurrences starti ng 11/12/2021 until 11/12/2022 [facility] Payers Date Payer Category Payer Self-pay 2022 Medicaid [id number] 2021 Unknown [facility] [place] [facility] [id number] 2021-Present [phone] [facility] [place] [address] [facility] [id number] 2021 Unknown [id number] 2021 Unknown [id number] 2021 Worker's Compensation [id number] 2021 Worker's Compensation 2020 Medicaid [employer] 2020-Present [phone] [address] [place] [address] Medicaid 2020 Medicaid [employer] [id number] 2020-Present [phone] [address] [place] [address] Medicaid [id number] 2014 Unknown [id number] 1985 Unknown [id number] 32 1985 Unknown [id number] [id number] 47 1985 Unknown [id number] [id number] 93 1985 Unknown [id number] 2.16.840.1.141445.3.579.2.5 93 1985 Unknown [id number] 2.16.840.1.361851.3.579.2.5 93 1985 Unknown [id number] 2.16.840.1.512610.3.579.2.5 93 1985 Unknown [id number] 2.16.840.1.970723.3.579.2.5 93 1985 Unknown [id number] 2.16.840.1.072550.3.579.2.5 93 1985 Unknown [id number] 2.16.840.1.303326.3.579.2.5 93 1985 Unknown [id number] [id number] 93 1985 Unknown [id number] 2.16.840.1.628898.3.579.2.1 96 1985 Unknown [id number] 2.16.840.1.205955.3.579.2.1 1985 Unknown [id number] [id number] 96 1959 Medicaid [id number] 1959 Unknown [id number] [id number] Unknown [id number] [id number] 31 Social History Date Type Detail Facility Start: 09-29-2014 Tobacco smoking stat us ARIS Smokes tobacco daily [facility] End: 08-15-2019 History of tobacco use Cigarette Smoker [facility] Start: 09-29-2014 End: 02-03-2022 Cigarettes smoked current (pack per day) - Reported 0.5 [facility] Start: 09-29-2014 End: 02-03-2022 Tobacco use and exposure Smokeless tobacco non-user [facility] Start: 03-02-2015 End: 02-03-2022 Alcohol intake Current non-drinker of alcohol (finding) [facility] Start: 1985 Sex Assigned At Not on file C [facility] Start: 11-12-2021 End: 02-03-2022 Tobacco smoking status ARIS Ex-smoker [facility] End: 08-15-2019 History of tobacco use Current smoker [facility] Start: 11-02-2021 End: 02-03-2022 Exposure to SARS-CoV-2 (event) Not sure [facility] Sex Assigned At Sex Assigned At formerly [facility] [employer] Other Clinical Notes 04-03-2021 to 03-04-2023 Chas [...] 1 month she will likely be at [facility] and then will be released for work either with permanent restrictions or unrestricted depending upon how she feels. She has exhausted conservative care at this point. This patient was seen and examined in the presence of Dr. Cesar Escalante resident in physical medicine and rehabilitation. [facility] 02-23-2023 Note Attestation signed by [...] improve Chinedu Palacios MD Orthopedic Surgery, PGY-4 [facility] Pager: [phone] 02/23/23 2:00 PM This note was created [...] be an additional personal documentation from me. [facility] 01-12-2023 Note Attestation signed by [...] be an additional personal documentation from me. [facility] 01-02-2023 Note I called and spoke t o the patient for a discharge follow up call following her procedure. The patient is doing well at home. She is taking ASA per orders. She denies any issues with her surgical dressing. I confirmed with the patient that she has a follow up appointment with Dr. Holley. [facility] 01-01-2023 Note Patient: Nabila cohn Procedure Summary Date: 01/01/23 Room / Location: [address] OR Anesthesia Start: 09 Anesthesia Stop: [...] no known notable events for this encounter. [facility] 01-01-2023 Note Airway Date/Time: 01/01/2023 9:16 AM Urgency: elective Airway not difficult General Information and Staff Patient location during procedure: OR Anesthesiologist: Han Aguiar MD Resident/PHARMACY SALES REPRESENTATIVE/CAA: TANO Bonner Performed: other anesthesia staff Learner [...] 1 Number of other approaches attempted: 0 [facility] 01-01-2023 Note Patient: Nabila cohn Procedure Information Date/Time: 01/01/23929 Procedures: KNEE ARTHROSCOPY WITH (Left: Knee) SAUCERIZATION OF DISCOID MENISCUS AND CHONDROPLASTY OF TROCHLEA (Left: Knee) Location: [facility] OR / [facility] OR Surgeons: Jenny Holley MD Echo complete W/O contrast Order: [id number] Narrative ?Left Ventricle: Systolic function is normal [...] 09:51 Last Resulted: 07/12/19 12:35 Received From: [email or web address] Result Received: 03/31/22 20:06 View Encounter ??? 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 Additional Equipment Requests [facility] 12-09-2022 Note Called to confirm ap pointment with dietitian scheduled for 12/10; pt request to cancel appointment at this time. [facility] 12-01-2022 Note Attestation signed by [...] a 37 y.o. female who presents to [facility] today for [facility] post-concussion syndrome follow up HPI: Patient following [...] by mouth in (more content not included)... [facility] 09-29-2022 Note Attestation signed by [...] Medication refill was given Erika Damon MS3 [facility] 09-15-2022 Note Orthopedic Surgery Subjective Chief complaint: Chief Complaint Patient presents with Left Knee - Pain 09/15/22 Nabila Jewell is a 37 year old female who presents for follow up evaluation of her left knee. The pain is unchanged and she would like to undergo surgery. 08/22/2022: Conservative measures have not provided alf relief, seen today with complaints of left [...] measures are not providing oil heaterman relief for left knee pain. She would like to undergo surgical repair - Consent for left knee arthroscopy has been obtained -Plan L knee chondroplasty trochlea and partial lateral meniscectomy [facility] 08-21-2022 Note Orthopedic Surgery Subjective Chief complaint: Chief Complaint Patient presents with Left Knee - Pain 08/22/22 Conservative measures have not provided oil heaterman relief, seen today with complaints of left knee pain. PT, medications and CSI have not provided alf relief. 07/02/22 steroid injection at previous visit [...] patient's left knee was brought in from [facility] on a CD disc that [...] -Patient reports conservative measures are not providing alf relief in regard to her left knee. Refer to Dr Holley for opinion. [facility] 08-06-2022 Note Adult Nutrition Asse [...] Needs: Needs based on: IBW Calorie Needs: 1320-6304 kcal/day (25-30 kcal/kg) Protein Needs: 65 g/day [...] to 2000 mg/day -Wt loss 1-2 lb/wk Exercise Instruct Goals: -Wt loss 10% Pt scheduled follow-up appointment with RD for December 10 @ 11 am. Encouraged pt to check with insurance for coverage prior to appointment. Time Spent With Pt: 10:00 - 11:30 am [facility] 07-31-2022 Note Called pt to confirm appointment with RD on 08/06/22. She is interested in attending appointment - fax sent to primary care physician (Dr. Urias) and requested for referral with nutrition related diagnosis. [facility] 07-02-2022 Note Subjective Patient ID: Nabila Jewell is a 36 y.o. female. Headache Leg Pain this patient is a 36-year-old female who sustained a work-related head injury. She continues with postconcussive syndrome. At her last visit we did start her on nabumetone been helping her headaches. They lessen the intensity. She continues with physical therapy here at [facility]. She has not yet been [...] Additional Comments: Seen on medical student today [facility] 05-15-2022 Note Attestation signed by [...] patient's left knee was brought in from [facility] on a CD disc that [...] evaluation Sixto Durham MD PGY-4 Orthopedic Surgery [facility] By using the attestations below, the signing [...] be an additional personal documentation from me. [facility] 04-30-2022 Note ASSESSMENT/PLAN: Nabila was [...] a 36 y.o. female who presents to [facility] today for Workers Compensation Follow [...] strength 5/5, R (more content not included)... [facility] 04-30-2022 Note I saw and evaluated the patient, participating in the mc portions of the service. I reviewed the resident???s note. I agree with the resident???s findings and plan. Pascual Uribe MD [facility] 04-17-2022 Note Attestation signed by Marisa Carter PhD at 04/17/2022 7:11 PM I supervised all aspects of this evaluation. [facility] OUTPATIENT REHABILITATION SERVICES - NEUROPSYCHOLOGY [address] [place] [address] Ms. Nabila Jewell was seen via [employer] and then Telephone to discuss the neuropsychological evaluation. We discussed the results, their implications, applicable diagnoses, and recommendations. All questions were answered. At this time, she is discharged from the Neuropsychology service. A copy of these results will be available to her via [facility] [employer] or through contacting the Dept. of Health Information Management ([facility]) at [phone]. Contact the Neuropsychology Clinic at [phone] with questions. Linda Scott, PhD Clinical Psychology Neuropsychology [facility] 04-17-2022 Note Attestation signed by Marisa Carter, PhD at 04/22/2022 1:40 PM I supervised all aspects of this service. 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 She recalls multiple details of events prior to arriving at work and for the first few hours of her shift. She reports that her next memory is of lying on the floor near the door to the kitchen feeling leg and head pain. She reports that she was working alone in the kitchen at the time of the fall, but that a student life vice president came in to assist her and a electrical supervisor was also called, who in turn called EMS. Ms. Jewell reports she was transported to [facility] in [place], [place], and adds a few memories of [...] seen as a new patient for a [place] of Worker's Compensation claim related to concussion [...] also includes a 02/03/22 visit note from [facility] Neurology with Chas Romero DO (Neuromuscular [...] 2020 injury. Review of medical records from [facility] on 11/12/21 indicate additional history of [...] but previously saw Dr. Carole Caba at [facility]. She reports she currently follows with Wendy Rubio CNP at [facility] Recovery [facility]. She reports no history of psychological or neuropsychological evaluation, and no history of psychiatric hospitalization. SUBSTANCE USE: Ms. Jewell reports no current use of alcohol and no history of significant alcohol use. She reports no illicit drug use (more content not included)... [facility] 04-03-2022 Note Attestation signed by [...] patient's left knee was brought in from [facility] on a CD disc that [...] 04/03/22 10:18 AM (more content not included)... [facility] 04-01-2022 Note [id number] Rebecca Jewell Vilma 1985 F Date Provider Department Center 04/01/2022 513-MARISA CARTER MP RE[facility] PSY Medical [facility]avi No family history on file Reason for Visit and Comments: Concussion [[id number]] [facility] 04-01-2022 Note Attestation signed by Marisa Carter, PhD at 04/01/2022 1:03 PM I participated in and supervised all aspects of this service. REVIEWED BY: Marisa Carter, PhD, ABPP Board Certified Clinical Neuropsychologist [facility] OUTPATIENT REHABILITATION SERVICES - NEUROPSYCHOLOGY [address] [facility] [address] Ms. Nabila Jewell was seen for a neuropsychological evaluation on 04/01/2022. A report describing the results of this evaluation will be posted after the follow-up appointment is completed. Linda Scott, PhD Clinical Psychologist Neuropsychology Fellow [facility] 04-01-2022 Note Ms. Nabila Jewell has a follow-up appointment on 04/17/2022 with Linda Scott, PhD & Marisa Carter PhD ABPP in Neuropsychology, to discuss the results of the evaluation on 04/01/2022. This appointment will be conducted via [employer]. [facility] 02-03-2022 Note HNO ID: [id number] Author: Chas Romero, DO Service: ? Author Type: Physician Type: Progress Notes Filed: 02/03/2022 11:27 AM Note Text: Neuromuscular Clinic Follow up Visit SERVICE DATE: 02/03/2022 PCP: Smiley Urias MD [address] [place] [place] [address] Reason for Evaluation: Consultation requested by Self for an opinion regarding right leg weakness Family/Friend accompanying the patient today: none HPI: This is Ms. Nabila Jewell, a 36 year old female who presents to the [facility] with the chief complaint above. 02/03/2022: [...] after this. She went to [facility] in [place]. She was evaluated and did testing and [...] significant dysarthria M (more content not included)... [facility] 02-03-2022 History of Present illness Narrative Neuromuscular Clinic Follow up Visit SERVICE DATE: 02/03/2022 PCP: Smiley Urias MD [address] [place] [address] Reason for Evaluation: Consultation requested by Self for an opinion regarding right leg weakness Family/Friend accompanying the patient today: none HPI: This is Ms. Nabila Jewell, a 36 year old female who presents to the [facility] with the chief complaint above. 02/03/2022: [...] after this. She went to [facility] in [place]. She was evaluated and did testing and [...] which included preparing to see the patient, [id number] patient care, completing clinical documentation, obtaining and/or reviewing separately obtained history, performing a medically appropriate examination, and counseling and educating the patient/family/caregiver. documented in this encounter [facility] 01-30-2022 Miscellaneous Notes I called patient and communicated results of EMG testing, all questions answered. Advised her that she does not need to follow up with me. Chas Romero DO documented in this encounter [facility] 01-23-2022 Note HNO ID: [id number] Author: Sofi Hernandez MD Service: ? Author [...] [facility], EMG Tech Sofi Hernandez MD [facility] 01-23-2022 History of Present illness Narrative [...] Sofi Hernandez MD documented in this encounter [facility] 01-14-2022 Note PROCEDURE: XR KNEE L [...] authenticated by: PASCUAL GAMBLE Date: 2022-01-14 12:01 [facility] 01-01-2022 Evaluation note Encounter Date Diagnosis [...] months if needed Continue restrictions- off work. [employer] Other 06-10-2022 Miscellaneous Notes* Telephone Encounter - Sky Rapp - 12/06/2021 11:31 AM EDT Relationship to patient: Self Reason for call (non-seizure related) Patient called asking about status of prior authorization [facility] order Patient of Dr. Romero [facility] note* Encounter Date Diagnosis Assessment [...] patient tolerated well with no adverse reactions. [employer] Other 05-17-2022 NoteHNO ID: [id number] Author: Chas Romero, DO Service: ? Author Type: Physician Type: Progress Notes Filed: 11/12/2021 2:58 PM Note Text: Neuromuscular Clinic New Patient Visit SERVICE DATE: 11/12/2021 PCP: Smiley Urias MD [address] [place] [address] Reason for Evaluation: Consultation requested by Self for an opinion regarding right leg weakness Family/Friend accompanying the patient today: none HPI: This is Ms. Nabila Jewell, a 36 year old female who presents to the [facility] with the chief complaint above. She had an injury at work (March 2021)-she fell and hit her head on a prep table and fell onto her knee. She had difficulty moving to get up after this. She went to [facility] in [place]. She was evaluated and did testing and [...] Hip abduction 4+ (giveaw (more content not included)...[facility]05-17-2022 Instructions* Patient Instructions* Chas Romero DO - 11/12/2021 2:47 PM EDT You were seen today for right leg weakness, I ordered EMG to assess for this. Continue physical therapy exercises. [facility] History of Present illness Narrative* Chas Romero DO - 11/12/2021 2:00 PM EDT Neuromuscular Clinic New Patient Visit SERVICE DATE: 11/12/2021 PCP: [place] [address] [place] [address] Reason for Evaluation: Consultation requested by Self for an opinion regarding right leg weakness Family/Friend accompanying the patient today: none HPI: This is Ms. Nabila Jewell, a 36 year old female who presents to the [facility] with the chief complaint above. She had an injury at work (March 2021)-she fell and hit her head on a prep table and fell onto her knee. She had difficulty moving to get up after this. She went to [facility] in [place]. She was evaluated and did testing and [...] which included preparing to see the patient, [id number] patient care, completing clinical documentation, obtaining and/or reviewing separately obtained history, performing a medically appropriate examination, counseling and educating the pat ient/family/caregiver and ordering medications, tests, or procedures. [facility] Miscellaneous Notes* Telephone Encounter - Sky Rapp - 10/22/2021 10:54 AM EDT Referral, medical records received and scanned in for review. [facility] Evaluation note* Encounter Date Diagnosis Assessment Notes Treatment Notes Treatment Clinical Notes Aug, Sprain of unspecified site of right knee, initial encounter (ICD-10 - S83.91XA) Continue physical therapy with approval [facility] and referral to neurology for knee weakness [...] pain. Continue restrictions-of f work, Continue with [facility] Other 01-26-2022 Evaluation note* Encounter Date Diagnosis [...] pain. Continue restrictions-off work, Continue with therapy [employer] Other 12-15-2021 Evaluation note* Encounter Date Diagnosis [...] on the affected leg. Continue off work [employer] Other 11-17-2021 Evaluation note* Encounter Date Diagnosis [...] She has seen an occupational physician at [place] who is ordered a hinged knee brace [...] weeks therapy. Apply for for cortisone injection. [facility] Continue off work [employer] Other 10-20-2021 Evaluation note* Encounter Date Diagnosis [...] [facility] Continue off of work. Mar, Other See orders for this visit as documented in the electronic medical record. [employer] Other 10-06-2021 NoteChief Complaint consultation for abscess [...] 2: Father. Hyperlipidemia: Father. Hypertension: Mother and Father.[facility]: Result Comment: Electronically Signed By: LAVELL QUARLES, Edson Strong\Date and Time Signed: 04/03/21 16:35 EDTEvaluation note* Diagnosis Right leg weakness- Primary Other musculoskeletal symptoms referable to limbs documented in this encounter [facility] noteNo [facility] [employer] Other Evaluation note* Diagnosis Right leg weakness Other musculoskeletal symptoms referable to limbs documented in this encounter [facility] note* Diagnosis Right leg weakness- Primary Other musculoskeletal symptoms referable to limbs documented in this encounter [facility] general Narrative - Reported* Type Description Date Medical History Chronic back pain Medical History HTN Medical History Anxiety Surgical History cholecystectomy Surgical History C section x 2 Surgical History pilonidal cyst Hospitalization History HTN [employer] Other History general Narrative - Reported* Type Description Date Medical History Chronic back pain Medical History HTN Medical History Anxiety Surgical History cholecystectomy Surgical History C section x 2 Surgical History pilonidal cyst Hospitalization History HTN Hospitalization History see surgeries [facility] [employer] Other Reason for referral (narrative)* Outpatient Procedure (Routine) - Authorized Specialty Diagnoses / Procedures Referred By Daniel perry Referred To Contact NEUROLOGICAL PICKERING Diagnoses Right leg weakness Procedures EMG(NEURO/NI) NERVE CONDUCTION STUDIES 9-10 STUDIES Chas Romero DO [facility] [place] [address] Neurological [place] [address] [place] [address] Referral ID Status Reason Start Date Expiration Date Visits Requested Visits Authorized [id number] Authorized Auto-Generat ed Referral 11/12/2021 11/12/2022 1 1 [facility] for referral (narrative)* Reason referral for neurolo gy for weakness of the right knee and second opinion Diagnosis 1 Sprain of unspecifie d site of right knee, initial encounter (S83.91XA) Referral Organization [facility] Referring Provider First Name Rolando Referring Provider Last Name Miracle Referring Provider Specialty Orthopedic Surgery Referred Organization Unknown Facility Referred Provider Specialty Neurology Referral Priority Routine [facility] [employer] Other Summary Purpose Family History No Family [...] DATE CREATED AUTHOR AUTHOR'S ORGANIZ ATION 03/02/2020 [facility] DATE CREATED AUTHOR AUTHOR'S ORGANIZ ATION 03/06/2021 [facility] DATE CREATED AUTHOR AUTHOR'S ORGANIZ ATION 04/10/2021 [facility] DATE CREATED AUTHOR AUTHOR'S ORGANIZ ATION 09/29/2021 [facility] DATE CREATED AUTHOR AUTHOR'S ORGANIZ ATION 03/06/2022 [facility] DATE CREATED AUTHOR AUTHOR'S ORGANIZ ATION 04/04/2022 [facility] DATE CREATED AUTHOR AUTHOR'S ORGANIZ ATION 08/29/2022 [facility] DATE CREATED AUTHOR AUTHOR'S ORGANIZ ATION 03/08/2023 [facility] DATE CREATED AUTHOR AUTHOR'S ORGANIZ ATION 07/22/2023 [facility] DATE CREATED AUTHOR AUTHOR'S ORGANIZ ATION 02/19/2024 [facility] Source Comments (unrecognize d section and content) In the event this informatio n is protected by the Federal Confidentiality of Alcohol and Drug Abuse Patient Records regulations: The Federal rules restrict any use of the information to criminally investigate or prosecute any alcohol or drug abuse patient.[facility] Hospital[facility] the event this information is protected by the Federal Confidentiality of Alcohol and Drug Abuse Patient Records regulations: The Federal rules restrict any use of the information to criminally investigate or prosecute any alcohol or drug abuse patient.[facility] HospitalIn the event this information is protected by the Federal Confidentiality of Alcohol and Drug Abuse Patient Records regulations: The Federal rules restrict any use of the information to criminally investigate or prosecute any alcohol or drug abuse patient.[facility] HospitalIn the event this information is protected by the Federal Confidentiality of Alcohol and Drug Abuse Patient Records regulations: The Federal rules restrict any use of the information to criminally investigate or prosecute any alcohol or drug abuse patient.[facility] HospitalIn the event this information is protected by the Federal Confidentiality of Alcohol and Drug Abuse Patient Records regulations: The Federal rules restrict any use of the information to criminally investigate or prosecute any alcohol or drug abuse patient.[facility] HospitalIn the event this information is protected by the Federal Confidentiality of Alcohol and Drug Abuse Patient Records regulations: The Federal rules restrict any use of the information to criminally investigate or prosecute any alcohol or drug abuse patient.[facility] Reason for Visit (unrecogniz ed section and content) Reason Comments Received Outside Medical Records Reason Comments New Patient Musculoskeletal Problem RT lower extremi ties Reason Comments Insurance Authorization Reason Comments EMG Specialty Diagnoses / Procedures Referred By Daniel perry Referred To Contact [facility] Diagnoses Right leg weakness Procedures EMG(NEURO/NI) NERVE CONDUCTION STUDIES 9-10 STUDIES Chas Romero DO [address] [place] [address] [place] [address] Referral ID Status Reason Start Date Expiration Date V isits Requested Visits Authorized [id number] Closed Auto-Generate d Referral 11/12/2021 11/12/2022 1 1 Reason Comments Results Reason Comments Established Patient Follow Up Visit Care Teams (unrecognized sec tion and content) [employer] Relationship Specialty Start Date End Date Smiley Urias MD PCP - General Family Practice 03/02/14 Serafin Bartlett, DO [address] [address] Referring Neurology 04/14/19 Rolando Turner, DO [address] [place] [address] Referring Orthopedics 10/11/21 [employer] Relationship Specialty Start Date End Date Smiley Urias MD PCP - General Family Practice 03/02/14 Serafin Bartlett, DO [address] [address] Referring Neurology 04/14/19 Rolando Turner, DO [address] [place] [address] Referring Orthopedics 10/11/21 [employer] Relationship Specialty Start Date End Date Smiley Urias MD PCP - General Family Practice 03/02/14 Serafin Bartlett, DO [address] [phone] Referring Neurology 04/14/19 Rolando Turner, DO [address] [place] [address] Referring Orthopedics 10/11/21 Zehra Holly, OPERATOR [employer] [address] [place] [phone] Referring Family Practice 11/19/21 [employer] Relationship Specialty Start Date End Date Smiley Urias MD PCP - General Family Practice 03/02/14 Serafin Bartlett, DO [address] [place] [address] Referring Neurology 04/14/19 Rolando Turner, DO [address] [place] [address] Referring Orthopedics 10/11/21 Zehra Holly, OPERATOR [employer] [address] [place] [phone] Referring Family Practice 11/19/21 [employer] Relationship Specialty Start Date End Date Smiley Urias MD PCP - General Family Practice 03/02/14 Serafin Bartlett, DO [address] [place] [address] Referring Neurology 04/14/19 Rolando Turner, DO [address] [place] [address] Referring Orthopedics 10/11/21 Zehra Holly, O[employer]ATOR [employer] [address] [place] [facility] [address] Referring Family Practice 11/19/21 FOR RECORDS [...] BE BASED ON THE PRIMARY CLINICAL RECORDS. [facility] [employer] provides no warranty or guarantee of the accuracy or completeness of information in this document.
== END 2024-03-11 07:32 | disposition home or self-care (01) ==
LOC: MRI 07:31
PROVIDERS: PCP Family Medicine; Visit Provider Family Medicine
DX: M23.90 Unspecified internal derangement of unspecified knee (principal); M25.461 Effusion, right knee
CPT/HCPCS: 73721

== ENCOUNTER 2024-04-25 11:56 | Outpatient (OUT) | payer OTHER, SELFPAY ==
[2024-04-25 13:05] LABS: Strep A Antigen Screen Negative
[2024-04-25 13:06] LABS: Internal Control Within Normal Limits
== END 2024-04-25 11:57 | disposition home or self-care (01) ==
LOC: LAB 12:00
PROVIDERS: PCP Family Medicine; Visit Provider Nurse Practitioner Family
DX: J02.9 Acute pharyngitis, unspecified (principal)
CPT/HCPCS: 87070; 87880

== ENCOUNTER 2024-05-20 14:02 | Outpatient (OUT) | payer OTHER, SELFPAY ==
--- NOTE | 2024-05-20 14:04 | US_ITS ---
[address] [address] Patient Name: RIVERA OWENS MRN: [id number] date: 1985 Sex: F Assigned Patient Location: US Current Patient Location: Accession/Order Number: [id number] Exam Date: 05/20/2024 14:20 Report Date: 05/21/2024 05:31 At the request of: SMILEY URIAS Procedure: US pelvis transvaginal EXAMINATION: US pelvis transvaginal HISTORY: Unspecified Dyspareunia COMPARISON: No relevant comparison available. TECHNIQUE: Transabdominal and/or transvaginal sonographic examination was performed as indicated by examination type. FINDINGS: UTERUS: Normal size and appearance. Slightly irregular 9 mm fluid collection within wolf of cervix, still suspected to represent a nabothian cyst. Uterus size: 9.3 x 4.5 x 4.4 cm ENDOMETRIUM: Normal homogeneous appearance. Endometrial thickness: 10 mm RIGHT OVARY: Not seen. Obscured by overlying bowel. LEFT OVARY: Not seen. Obscured by overlying bowel. CUL-DE-SAC: Unremarkable. No significant free fluid. BLADDER: Unremarkable. OTHER: None. US/US pelvis transvaginal IMPRESSION: 1. Neither ovary could be seen. Both adnexa were obscured by bowel gas. 2. Small fluid collection with wall of cervix suspected to represent a nabothian cyst. Electronically authenticated by: PASCUAL GAMBLE Date: 05/21/2024 05:31
== END 2024-05-20 14:03 | disposition home or self-care (01) ==
LOC: US 14:02
PROVIDERS: PCP Family Medicine; Visit Provider Family Medicine
DX: N94.10 Unspecified dyspareunia (principal)
CPT/HCPCS: 76830

== ENCOUNTER 2024-06-02 12:08 | Outpatient (OUT) | payer OTHER, SELFPAY ==
--- OUTSIDE RECORDS SUMMARY | 2024-06-02 12:26 | XMS_ITS | CCD ---
Author Organization [facility] CliniSymn Care Team Providers Care Gas Regulator Repairer Name Role Phone EDSON VILLEGAS Unavailable Unavailab SMILEY Dawkins Unavailable Unavailable PROVIDER, UNKNOWN Attending Unavailable PROVIDER, UNKNOWN Admitting Unavailable Smiley Urias MD Primary Care Provider [phone] Serafin Bartlett DO Unavailable Rolando Turner DO Unavailable [phone] Zehra Holly CNP Unavailable Rolando Turner Unavailable Smiley Urias MD Primary Care Provider [phone] Serafin Bartlett DO Unavailable Caleb Turner DOin Tracy Unavailable [phone] Rosy Holly CNPa Unavailable [phone] SMILEY URIAS Referring Unavailable SMILEY URIAS Primary Care Unavailable EBRAHEIM, RUFINO Attending Unavailable EBRAHEIM, RUFINO Admitting Unavailable HEATHER, CHAS Attending Unavailable SMILEY URIAS Primary Care Unavailable SMILEY URIAS Primary Care Unavailable CINDILE, CHAS Referring Unavailable SMILEY URIAS Primary Care Unavailable ZALE, CHAS Referring Unavailable ZALE, CHAS Attending Unavailable NUZHAT ARZOLA Admitting Unavailable BRIDGETT ., DR REIS Primary Care Unavailable NUZHAT ARZOLA Attending Unavailable MAVIS, DR PASCUAL Lo Consulting Unavailable NUZHAT ARZOLA Consulting Unavailable HOY ., DR REIS Admitting Unavailable HOY ., DR REIS Attending Unavailable HOY ., DR REIS Consulting Unavailable VERONICAY ., DR REIS Primary Care Unavailable MAVIS, [...] HOY ., DR REIS Primary Care Unavailable YUMA, DR JENNY Barbosa Consulting Unavailable HOY ., [...] Admitting Unavailab Smiley Dawkins Primary Care Unavailable MD Smiley Urias Primary Care Provider [phone] MD Luiz Knight Attending Provider Allergies Allergy Classification Reported Allergen(s) Allergy Type Date of Onset Reaction(s) Facility (7 sources) Erythromycin; Translations: [ERYTHROMYCIN] Drug Allergy 2 anaphylaxis [facility] Repository (1 source) Erythromycin Drug Allergy 0 [facility] Repository (2 sources) Erythromycin Drug Allergy 1 anaphylaxis [facility] Repository (1 source) Erythromycin; Translations: [ERYTHROMYCIN LACTOBIONATE] Drug Allergy 2 [facility] Repository (1 source) ALLERGIES NOT ON FILE; Translations: [ALLERGIES NOT ON FILE] Propensity to adverse reactions (disorder) [facility] Repository (2 sources) Azithromycin Drug Allergy 1 Anaphylaxis [facility] Repository (1 source) Erythromycin Drug Allergy 2 [facility] Repository Medications Current Medications Medication Drug Class(es) Dates Sig (Normalized) Sig (Original) Cane - (6 sources) Start: 06-12-2021 Cane - as directed May, Active ibuprofen 600 mg oral tablet (1 source) Nonsteroidal Anti-inflammatory Drug Start: 04-12-2021 take 600 mg by mouth every eight hours Ibuprofen Active 600 MG PO Q8H April 12, 2021 12:00am Magnesium (8 sources) Magnesium Active Potassimin (8 [...] oral tablet (2 sources) Tricyclic Antidepressant End: 05-17 -2022 take 1 tablet by mouth once daily [...] on above: Take 1 capsule by mo [facility] once daily. hydroCHLOROthiazide 12.5 mg / [...] 1 tablet by kael th once daily. lisinopril 20 mg oral tablet [...] Translations: [UNSPECIFIED ABDOMINAL PAIN] Onset: 08-27-2022 Episodic Administrative/social admission (2 sources) Patient encounter status; Translations: [Encounter for pre-employment examination] 04-18-2024 Episodic Anxiety disorders (2 sources) Generalized anxiety disorder; Translations: [Anxiety disorder, unspecified] Onset: 08-13-2017 Chronic Disorders of lipid metabolism (1 source) Hyperlipidemia, unspecified; Translations: [HYPERLIPIDEMIA UNSPECIFIED] Onset: 04-23-2022 Chronic E Codes: Fall (1 source) Fall on same level from slipping, tripping or stumbling ; Translations: [Fall on same level from slipping, tripping and stumbling without subsequent striking against object, initial encounter] 04-12-2021 Episodic Essential hypertension (9 sources) Hypertensive disorder; Translations: [...] adrenal gland] Onset: 05-18-2015 05-18-2015 Chronic Other injuries and conditions due to external causes (1 source) Minor head injury; Translations: [Unspecified injury of head, initial encounter] 04-12-2021 Episodic Other nutritional; endocrine; and metabolic disorders (1 [...] [Other specified postprocedural states] Onset: 02-23-2023 Episodic Superficial injury; contusion (10 sources) Contusion of right knee, initial encounter; [...] 09-29-2014 Episodic Other aftercare (1 source) Other [facility] (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 therapy; Translations: [OTH PRISON CURRENT DRUG THERAPY] Onset: 09-10-2021 Episodic Other [...] subsequent encounter] Onset: 09-18-2021 Resolved: 01-01-2022 Episodic Unclassified (1 source) Concussion [...] medical benefits. Patient was sent the letter. [facility] 36on 03-05-2023 36 Patient states she received a note for work but she needs a note stating she is off work. Please email if MD writes she states it is for jobs and family services and she states that is what they need. [facility] Follow-Upon 03-04-2023 Follow-Up [id number] Rebecca Jewell 1985 F Date Provider Department Center 03/04/2023 PASCUAL HOPKINS MP PHYS MED Medical Pavi No family history on file Level of Service:40884 PA OFFICE/OUTPATIENT ESTABLISHED LOW MDM 20-29 MIN (GC) Reason for Visit and Comments: Concussion [865885] - [facility] Office Visiton 02-23-2023 Follow-up visit [id number] Rebecca Jewell 1985 F Date Provider Department Center 02/23/2023 JENNY MARAVILLA MP ORTHO MPORTHO No family history on file Level of Service:96723 PA POSTOP FOLLOW UP VISIT RELATED TO ORIGINAL PX (GC) Reason for Visit and Comments: Pain [136] Follow-up [691712] [facility] Office Visiton 01-12-2023 Follow-up visit [id number] Rebecca Jewell M 1985 F Date Provider Department Center 01/12/2023 JENNY MARAVILLA MP ORTHO MPORTHO No family history on file Level of Service:12109 PA POSTOP FOLLOW UP VISIT RELATED TO ORIGINAL PX (GC) Reason for Visit and Comments: Post-op [483] [facility] Orders Onlyon 01-08-2023 Orders Only [id number] Rebecca Jewell 1985 Date Provider Department Center 01/08/2023 SHRUTHI TORREZ MP ORTHO MPORTHO No family history on file [facility] OPNOTEon 01-01-2023 OPNOTE KNEE ARTHROSCOPY WIT H PARTILA LATERAL MENISCECTOMY (L), CHONDROPLASTY (L) Operative Note Date: 01/01/2023 Location: [facility] OR Name: Nabila Jewell, : 1985, Diagnosis Pre-op Diagnosis * Discoid meniscus of left knee [Q68.6] Post-op Diagnosis * Discoid meniscus of left knee [Q68.6] Procedures KNEE ARTHROSCOPY WITH PARTILA LATERAL MENISCECTOMY 27567 - PA ARTHRS KNE SURG W/MENISCECTOMY MED/LAT W/SHVG CHONDROPLASTY Surgeons * Jenny Holley - Primary Procedure Summary Anesthesia: General ASA: III Estimated Blood Loss: 5 mL Total IV Fluids: mL Drains: * None in log * Staff: Patternmaker All Around: Kristen Lai RN Scrub Person: Jordan Lucero, JOAO Indications: Nabila Jewell is an 37 y.o. [...] PACU - hemodynamically stable. Condition: stable Jenny oHlley Normal [facility] POCT GLUCOSE METER UNSOLICIT ED RESULTSon 01-01-2023 Glucose [Mass/Vol] 93 mg/dL Normal 70-105 [facility] Comment on above: Order Comment: Waive d Testing in the ED is performed under the ED CLIA certificate #[id number]. Result Comment: ngro andrew Performed By: #### L [id number] ####[facility] ([facility] [place] [address] HPon 12-31-2022 HP History Of Present Illness [...] Results Lab Results Component Value Date CO2 27 07/27/2019 BUN 14 07/27/2019 CALCIUM 8.9 07/27/2019 EGFR >60 07/27/2019 EGFR >60 07/27/2019 Relevant Imaging Results XR transfer of outside films This order has been auto-finalized and does not contain a result. 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 NO JEWELRY BRING INS AND ID Take the meds we spoke about w/a sip of water DOS: ALL NORMAL AM MEDS ARRIVE AT [facility] Documentationon 12-09-2022 Documentation [id number] Rebecca Jewell 1985 F Date Provider Department Jay 12/09/2022 Melvin-PARRISH MCDONOUGH MP DIETARY Medical Pavi Chart Close Cosign Required by: Samir Mendoza MD[1894] No family history on file [facility] 36on 12-03-2022 36 [employer] Cici from [place] calls to state the last note sent with the [employer] has a statement that patient can work 4 hours per day 20 hours per week but [employer] sent yesterday did not have any thing listed but patient states there were no changes and she is still to be off work. I pulled up [employer] sent in by press writer and I had forgotten to check the no changes box. In same note it does state by MD patient is not working and will be evaluated upon next ov. I informed her of the error and she requested I resend with the no changes box checked. Form was reprinted and faxed back. [facility] 36 Patient calls to justine leblanc her [employer] is stating she will need [...] so she will call the [employer] back. Normal [facility] Telephoneon 12-03-2022 Telephone [id number] Rebecca Jewell 1985 Provider Department Center 12/03/2022 PASCUAL HOPKINS MP PHYS MED Medical Pavi No family history on file [facility] Follow-Upon 12-01-2022 Follow-Up [id number] Rebecca Jewell 1985 Provider Department Center 12/01/2022 PASCUAL HOPKINS MP PHYS MED Medical Pavi No family history on file Level of Service:76780 PA OFFICE/OUTPATIENT ESTABLISHED LOW MDM 20-29 MIN (GC) Reason for Visit and Comments: headaches [Other] - [facility] Normal [facility] Follow-Upon 09-29-2022 Follow-Up [id number] Rebecca Jewell 1985 Provider Department Jay 09/29/2022 PASCUAL HOPKINS MP PHYS MED Medical Pavi No family history on file Level of Service:34562 PA OFFICE/OUTPATIENT ESTABLISHED LOW MDM 20-29 MIN Reason for Visit and Comments: headaches [Other] Leg Pain [564733] - Right [facility] Orders Onlyon 09-29-2022 Orders Only [id number] Rebecca Jewell 1985 Provider Department Jay 09/29/2022 PASCUAL HOPKINS MP PHYS MED Medical Pavi No family history on file [facility] Office Visiton 09-15-2022 Follow-up visit [id number] Rebecca Jewell 1985 [facility] Provider Department Center 09/15/2022 443-JENNY HOLLEY MP ORTHO MPORTHO No family history on file Level of Service:32778 PA OFFICE/OUTPATIENT ESTABLISHED MOD MDM 30-39 MIN (57) Reason for Visit and Comments: Pain [136] Normal [facility] CULTURE URINEon 08-22-2022 CULTURE URINE Culture Observations : MODERATE GROWTH OF MIXED GENITAL GISELLE. NO POTENTIAL PATHOGENS SEEN. Normal The [facility] Comment on above: Performed By: #### T SH, LIPID, CMP, URIC, T7, CRP #### [facility] [address] [address] [address] Walker Gabriel UA RANDOM W/MICROSCOPICon BACTERIA MODERATE Abnormal NONE SEEN The [facility] Comment on above: Performed By: #### U AMIC #### [facility] [address] [address] [address] Walker Gabriel Bilirubin Ql (U) Negative Normal NEGATIVE [facility] Comment on above: Performed By: #### U AMIC #### [facility] [address] [address] [address] Walker Gabriel CAST NONE SEEN Normal NONE SEEN [facility] Comment on above: Performed By: #### U AMIC #### [facility] [address] [place] [address] Dr. Walker Gabriel Clarity (U) CLEAR Normal CLEAR [facility] Comment on above: Performed By: #### U AMIC #### [facility] [address] [place] [address] Dr. Walker Gabriel Color (U) YELLOW Normal YELLOW [facility] Comment on above: Performed By: #### U AMIC #### [facility] [address] [address] [address] Walker Gabriel Crystals LM Nom (Urine sed) NONE SEEN Normal NONE SEEN [facility] Comment on above: Performed By: #### U AMIC #### [facility] [address] [place] [address] Dr. Walker Gabriel Epithelial cells LM Ql (Urine sed) FEW Abnormal NONE SEEN /RARE [facility] Comment on above: Performed By: #### U AMIC #### [facility] [address] [place] [address] Dr. Walker Gabriel Glucose Ql (U) Negative Normal NEGATIVE [facility] Comment on above: Performed By: #### U AMIC #### [facility] [address] [place] [address] Dr. Walker Gabriel Hemoglobin Ql (U) TRACE-LYSED Abnormal NEGATIVE [facility] Comment on above: Performed By: #### U AMIC #### [facility] [address] [place] [address] Dr. Walker Gabriel Ketones Ql (U) Negative Normal NEGATIVE [facility] Comment on above: Performed By: #### U AMIC #### [facility] [address] [place] [address] Dr. Walker Gabriel LEUKOCYTES Negative Normal NEGATIVE [facility] Comment on above: Performed By: #### U AMIC #### [facility] [address] [address] [address] Walker Gabriel MUCOUS NONE SEEN Normal NONE SEEN The [facility] Comment on above: Performed By: #### U AMIC #### [facility] [address] [place] [address] Dr. Walker Gabriel Nitrite Ql (U) Negative Normal NEGATIVE [facility] Comment on above: Performed By: #### U AMIC #### [facility] [address] [place] [address] Dr. Walker Gabriel pH (U) 6.0 [pH] Normal 5-9 [facility] Comment on above: Performed By: #### U AMIC #### [facility] [address] [place] [address] Dr. Walker Gabriel RBC 0-2 Normal 0-2 [facility] Comment on above: Performed By: #### U AMIC #### [facility] [address] [place] [address] Dr. Walker Gabriel SPEC GRAVITY >=1.030 Abnormal 1.005-<=1.025 [facility] Comment on above: Performed By: #### U AMIC #### [facility] [address] [place] [address] Dr. Walker Gabriel UA PROTEIN Negative Normal NEGATIVE/ TRACE [facility] Comment on above: Performed By: #### U AMIC #### [facility] [address] [place] [address] Dr. Walker Gabriel Urobilinogen Qn (U) 0.2 {Natalie'U}/dL Normal 0.2 - 1. 0 [facility] Comment on above: Performed By: #### U AMIC #### [facility] [address] [place] [address] Dr. Walker Gabriel WBC 2-5 Abnormal NONE SEEN The [facility] Comment on above: Performed By: #### U [facility] #### [facility] [address] [address] [address] Walker Gabriel XR KUB 1 VIEWon [...] by: PASCUAL GAMBLE Date: 2022-08-22 12:42 Normal [facility] Follow-Upon 08-21-2022 Follow-Up [id number] Rebecca Jewell 1985 [facility] Provider Department Center 08/21/2022 CAROLE ENAMORADO MP ORTHO MPORTHO No family history on file Level of Service:95225 PA OFFICE/OUTPATIENT ESTABLISHED LOW MDM 20-29 MIN Reason for Visit and Comments: Pain [136] Normal [facility] Clinical Supporton Clinical Support [id number] Rebecca Jewell 1985 [facility] Provider Department Jay 08/06/2022 PARRISH STOVER MP DIETARY Medical Pavsamuel Chart Close Cosign Required by: Samir Mendoza MD[1894] No family history on file Reason for Visit and Comments: Obesity [[id number]] Hypertension [411329] Normal [facility] Erroneous Encounteron 2022 Erroneous Encounter [id number] Rebecca Jewell 1985 [facility] Provider Department Jay 08/06/2022 PARRISH STOVER MP DIETARY Medical Pavsamuel No family history on file Reason for Visit and Comments: Error (VOID this visit) [77] Normal [facility] Documentationon 07-31-2022 Documentation [id number] Rebecca Jewell 1985 [facility] Provider Department Jay 07/31/2022 543-PARRISH MCDONOUGH [facility] NUTRN GA Medical C Chart Close Cosign Required by: Samir Mendoza MD[1894] No family history on file [facility] Follow-Upon 07-02-2022 Follow-Up [id number] Rebecca Jewell M 1985 F Date Provider Department Center 07/02/2022 PASCUAL HOPKINS MP PHYS MED Medical Pavi No family history on file Level of Service:27585 PA OFFICE/OUTPATIENT ESTABLISHED MOD MDM 30-39 MIN Reason for Visit and Comments: Headache [52] Leg Pain [572844] - Right [facility] Refillon 05-28-2022 Refill [id number] Rebecca Jewell M 1985 F Date Provider Department Center 05/28/2022 PASCUAL HOPKINS MP PHYS MED Medical Pavi No family history on file Reason for Visit and Comments: Med Refill [978421] [facility] Follow-Upon 05-15-2022 Follow-Up [id number] Rebecca Jewell M 1985 F Date Provider Department Center 05/15/2022 260-RUFINO PERDOMO MP ORTHO MPORTHO Chart Close Cosign Required by: Rufino Perdomo MD[[id number]] No family history on file Level of Service:43920 PA OFFICE/OUTPATIENT ESTABLISHED LOW MDM 20-29 MIN (GC) Reason for Visit and Comments: Follow-up [889954] - Follow up on left knee pain. [facility] Follow-Upon 04-30-2022 Follow-Up [id number] Rebecca Jewell M 1985 F Date Provider Department Center 04/30/2022 PASCUAL HOPKINS MP PHYS MED Medical Pavi No family history on file Level of Service:15246 PA OFFICE/OUTPATIENT ESTABLISHED MOD MDM 30-39 MIN (GC) Reason for Visit and Comments: headaches [Other] [facility] DARIO by IFAon 04-21-2022 Antinuclear Antibodies, IFA Negative Normal [facility] Comment on above: Result Comment: Nega tive <1:80 Borderline 1:80 Positive >1:80 ICAP nomenclature: AC-0 For more information about Hep-2 cell patterns use ANApatterns.org, the official website for the International Consensus on Antinuclear Antibody (DARIO) Patterns (ICAP). Performed By: #### T SH, LIPID, CMP, URIC, T7, CRP #### [facility] [address] [address] [address] Walker Gabriel SLE PROFILE Aon 04-21-2022 Anti-DNA (DS) Ab Qn 3 IU/mL Normal 0-9 [facility] Comment on above: Result Comment: Nega tive <5 Equivocal 5 - 9 Positive >9 Performed By: #### S JUSTO #### [facility] [address] [address] [address] Walker Gabriel Antichromatin Antibodies <0.2 Normal 0.0-0.9 [facility] Comment on above: Performed By: #### S JUSTO #### [facility] [address] [address] [address] Walker Gabriel RA Latex Turbid. <10.0 Normal <14.0 [facility] Comment on above: Performed By: #### S JUSTO #### [facility] [address] [address] [address] Walker Gabriel SENIOR WEB DESIGNER Antibodies <0.2 Normal 0.0-0.9 [facility] Comment on above: Performed By: #### S JUSTO #### [facility] [address] [address] [address] Walker Gabriel Sjogren's Anti-SS-A <0.2 Normal 0.0-0.9 [facility] Comment on above: Performed By: #### S JUSTO #### [facility] [address] [address] [address] Walker Gabriel Sjogren's Anti-SS-B <0.2 Normal 0.0-0.9 [facility] Comment on above: Performed By: #### S JUSTO #### [facility] [address] [address] [address] Walker Gabriel Lemus Antibodies <0.2 Normal 0.0-0.9 [facility] Comment on above: Performed By: #### S JUSTO #### [facility] [address] [place] [address] Dr. Walker Gabriel ANTISTREPTOLYSIN O AB (ASO)o n 04-19-2022 Antistreptolysin O Ab 227.2 IU/mL Critically high 0.0-200.0 [facility] Comment on above: Performed By: #### T SH, LIPID, CMP, URIC, T7, CRP #### [facility] [address] [place] [address] Dr. Walker Gabriel INSULINon 04-19-2022 Insulin 20.8 uIU/mL Normal 2.6-24.9 [facility] Comment on above: Performed By: #### T SH, LIPID, CMP, URIC, T7, CRP #### [facility] [address] [place] [address] Dr. Walker Gabriel CBC AUTO DIFFon 04-18-2022 BASO # 0.0 103/ul Normal 0.0-0.1 [facility] Comment on above: Performed By: #### T SH, LIPID, CMP, URIC, T7, CRP #### [facility] [address] [place] [address] Dr. Walker Gabriel Basophils/100 WBC (Bld) 0.4 % Normal 0.2-2.0 [facility] Comment on above: Performed By: #### T SH, LIPID, CMP, URIC, T7, CRP #### [facility] [address] [place] [address] Dr. Walker Gabriel EO # 0.1 103/ul Normal 0.0-0.7 [facility] Comment on above: Performed By: #### T SH, LIPID, CMP, URIC, T7, CRP #### [facility] [address] [place] [address] Dr. Walker Gabriel Eosinophils/100 WBC (Bld) 1.4 % Normal 0.9-7.0 [facility] Comment on above: Performed By: #### T SH, LIPID, CMP, URIC, T7, CRP #### [facility] [address] [place] [address] Dr. Walker Gabriel Erythrocyte distribution width (RBC) [Ratio] 12.8 % Normal 11.0-15.0 [facility] Comment on above: Performed By: #### T SH, LIPID, CMP, URIC, T7, CRP #### [facility] [address] [place] [address] Dr. Walker Gabriel Hematocrit (Bld) [Volume fraction] 38.1 % Normal 36.0-48.0 [facility] Comment on above: Performed By: #### T SH, LIPID, CMP, URIC, T7, CRP #### [facility] [address] [place] [address] Dr. Walker Gabriel Hemoglobin (Bld) [Mass/Vol] 12.3 g/dL Normal 12.0-16.0 [facility] Comment on above: Performed By: #### T SH, LIPID, CMP, URIC, T7, CRP #### [facility] [address] [place] [address] Dr. Walker Gabriel IG # 0.03 10e3/ul Normal 0.00-0.03 [facility] Comment on above: Performed By: #### T SH, LIPID, CMP, URIC, T7, CRP #### [facility] [address] [place] [address] Dr. Walker Gabriel IG % 0.4 % Normal 0.0-0.5 [facility] Comment on above: Performed By: #### T SH, LIPID, CMP, URIC, T7, CRP #### [facility] [address] [place] [address] Dr. Walker Gabriel LYMPH # 2.6 103/ul Normal 1.2-3.8 [facility] Comment on above: Performed By: #### T SH, LIPID, CMP, URIC, T7, CRP #### [facility] [address] [place] [address] Dr. Walker Gabriel Lymphocytes/100 WBC (Bld) 35.5 % Normal 20.5-60.0 [facility] Comment on above: Performed By: #### T SH, LIPID, CMP, URIC, T7, CRP #### [facility] [address] [place], [place] [id number] Dr. Walker Gabriel MANUAL DIFF REQ NO Normal [facility] Comment on above: Performed By: #### T SH, LIPID, CMP, URIC, T7, CRP #### [facility] [address] [place] [address] Dr. Walker Gabriel MCH (RBC) [Entitic mass] 28.7 pg Normal 26.7-34.0 [facility] Comment on above: Performed By: #### T SH, LIPID, CMP, URIC, T7, CRP #### [facility] [address] [place] [address] Dr. Walker Gabriel MCHC (RBC) [Mass/Vol] 32.3 g/dL Normal 29.9-35.2 [facility] Comment on above: Performed By: #### T SH, LIPID, CMP, URIC, T7, CRP #### [facility] [address] [place], [place] [address] Dr. Walker Gabriel MCV (RBC) [Entitic vol] 88.8 fL Normal 81.0-99.0 [facility] Comment on above: Performed By: #### T SH, LIPID, CMP, URIC, T7, CRP #### [facility] [address] [place] [address] Dr. Walker Gabriel MONO # 0.4 103/ul Normal 0.3-0.8 The [facility] Comment on above: Performed By: #### T SH, LIPID, CMP, URIC, T7, CRP #### [facility] [address] [place] [address] Dr. Walker Gabriel Monocytes/100 WBC (Bld) 6.1 % Normal 1.7-12.0 The [facility] Comment on above: Performed By: #### T SH, LIPID, CMP, URIC, T7, CRP #### [facility] [address] [place] [address] Dr. Walker Gabriel NEUT # 4.0 103/ul Normal 1.4-6.5 [facility] Comment on above: Performed By: #### T SH, LIPID, CMP, URIC, T7, CRP #### [facility] [address] [place] [address] Dr. Walker Gabriel Neutrophils/100 WBC (Bld) 56.2 % Normal 43.0-75.0 The [facility] Comment on above: Performed By: #### T SH, LIPID, CMP, URIC, T7, CRP #### [facility] [address] [address] [address] Walker Gabriel Platelet mean volume (Bld) [Entitic vol] 8.3 fL Critically low 9.5-13.5 The [facility] Comment on above: Performed By: #### T SH, LIPID, CMP, URIC, T7, CRP #### [facility] [address] [address] [address] Walker Gabriel PLT 328 103/ul Normal 150-450 The [facility] Comment on above: Performed By: #### T SH, LIPID, CMP, URIC, T7, CRP #### [facility] [address] [place] [address] Dr. Walker Gabriel RBC 4.29 106/ul Normal 4.20-5.40 The [facility] Comment on above: Performed By: #### T SH, LIPID, CMP, URIC, T7, CRP #### [facility] [address] [address] [address] Walker Gabriel WBC 7.2 103/ul Normal 4.0-11.0 The [facility] Comment on above: Performed By: #### T SH, LIPID, CMP, URIC, T7, CRP #### [facility] [address] [place] [address] Dr. Walker Gabriel CRPon 04-18-2022 CRP 1.3 mg/dL Critically high <=1.0 The [facility] Comment on above: Performed By: #### T SH, LIPID, CMP, URIC, T7, CRP #### [facility] [address] [place] [address] Dr. Walker Gabriel FREE THYROXINE INDEX T7on FTI 2.91 Normal 1.30-4.50 [facility] Comment on above: Performed By: #### T SH, LIPID, CMP, URIC, T7, CRP #### [facility] [address] [place] [address] Dr. Walker Gabriel T3U 31.0 % Normal 30.0-39.0 The [facility] Comment on above: Performed By: #### T SH, LIPID, CMP, URIC, T7, CRP #### [facility] [address] [place] [address] Dr. Walker Gabriel T4 [Mass/Vol] 9.40 ug/dL Normal 4.80-13.90 The [facility] Comment on above: Performed By: #### T SH, LIPID, CMP, URIC, T7, CRP #### [facility] [address] [address] [address] Walker Gabriel GLYCOHEMOGLOBIN A1Con 2021 ADA RECOMMENDATION SEE BELOW Normal The [facility] Comment on above: Result Comment: ADA RECOMMENDED LIMIT 4.0 - 6.0 ADA THERAPEUTIC TARGET < 7.0 ACTION SUGGESTED > 7.0 Performed By: #### T SH, LIPID, CMP, URIC, T7, CRP #### [facility] [address] [address] [address] Walker Gabriel Glucose [Mass/Vol] 114 mg/dL Normal [facility] Comment on above: Performed By: #### T SH, LIPID, CMP, URIC, T7, CRP #### [facility] [address] [address] [address] Walker Gabriel HbA1c (Bld) [Mass fraction] 5.6 % Normal 4.5-6.2 The [facility] Comment on above: Performed By: #### T SH, LIPID, CMP, URIC, T7, CRP #### [facility] [address] [place] [address] Dr. Walker Gabriel IRONon 04-18-2022 Iron [Mass/Vol] 34.0 ug/dL Critically low 50.0-170.0 The [facility] Comment on above: Performed By: #### I FRANCISCO #### [facility] [address] [place] [address] Dr. Walker Gabriel LIPID PROFILEon 04-18-2022 CHOL-HDL RATIO NORM SEE BELOW Normal The [facility] Comment on above: Result Comment: 3.3 - 4.4 LOW RISK 4.4 - 7.1 AVERAGE RISK 7.1 - 11.0 MODERATE RISK >11.0 HIGH RISK Performed By: #### T SH, LIPID, CMP, URIC, T7, CRP #### [facility] [address] [address] [address] Walker Gabriel Cholesterol [Mass/Vol] 174 mg/dL Normal <=200 [facility] Comment on above: Performed By: #### T SH, LIPID, CMP, URIC, T7, CRP #### [facility] [address] [address] [address] Walker Gabriel Cholesterol in HDL [Mass/Vol] 70 mg/dL Critically high 40-60 [facility] Comment on above: Performed By: #### T SH, LIPID, CMP, URIC, T7, CRP #### [facility] [address] [address] [address] Walker Gabriel Cholesterol in LDL [Mass/Vol] 92.8 mg/dL Normal The [facility] Comment on above: Performed By: #### T SH, LIPID, CMP, URIC, T7, CRP #### [facility] [address] [address] [address] Walker Gabriel Cholesterol.total/Ch olesterol in HDL [Mass ratio] 2.5 {ratio} Normal [facility] Comment on above: Performed By: #### T SH, LIPID, CMP, URIC, T7, CRP #### [facility] [address] [address] [address] Walker Gabriel HDL NORMAL > or = 60 mg/dl - LO W CARDIOVASCULAR RISK <40 mg/dl - HIGH CARDIOVASCULAR RISK Normal The [facility] Comment on above: Performed By: #### T SH, LIPID, CMP, URIC, T7, CRP #### [facility] [address] [address] [address] Walker Gabriel LDL CALC NORMAL SEE BELOW Normal The [facility] Comment on above: Result Comment: <100 mg/dl OPTIMAL 100 - 129 mg/dl NEAR OR ABOVE OPTIMAL 130 - 159 mg/dl BORDERLINE HIGH 160 - 189 mg/dl HIGH >190 mg/dl VERY HIGH Performed By: #### T SH, LIPID, CMP, URIC, T7, CRP #### [facility] [address] [address] [address] Walker Gabriel Triglyceride [Mass/Vol] 56 mg/dL Normal <=150 [facility] Comment on above: Performed By: #### T SH, LIPID, CMP, URIC, T7, CRP #### [facility] [address] [address] [address] Walker Gabriel VLDL CALC 11.2 mg/dL Normal [facility] Comment on above: Performed By: #### T SH, LIPID, CMP, URIC, T7, CRP #### [facility] [address] [address] [address] Walker Gabriel PROF 14(COMP METB)on 022 Albumin [Mass/Vol] 3.0 g/dL Critically low 3.4-5.0 [facility] Comment on above: Performed By: #### T SH, LIPID, CMP, URIC, T7, CRP #### [facility] [address] [place] [address] Dr. Walker Gabriel Albumin/Globulin [Mass ratio] 0.6 {ratio} Normal [facility] Comment on above: Performed By: #### T SH, LIPID, CMP, URIC, T7, CRP #### [facility] [address] [place] [address] Dr. Walker Gabriel ALP [Catalytic activity/Vol] 102 U/L Normal 46-116 [facility] Comment on above: Performed By: #### T SH, LIPID, CMP, URIC, T7, CRP #### [facility] [address] [address] [address] Walker Gabriel ALT [Catalytic activity/Vol] 19 U/L Normal 14-59 [facility] Comment on above: Performed By: #### T SH, LIPID, CMP, URIC, T7, CRP #### [facility] [address] [place] [address] Dr. Walker Gabriel Anion gap [Moles/Vol] 7.9 mmol/L Normal [facility] Comment on above: Performed By: #### T SH, LIPID, CMP, URIC, T7, CRP #### [facility] [address] [place] [address] Dr. Walker Gabriel AST [Catalytic activity/Vol] 12 U/L Critically low 15-37 [facility] Comment on above: Performed By: #### T SH, LIPID, CMP, URIC, T7, CRP #### [facility] [address] [place] [address] Dr. Walker Gabriel Bilirubin [Mass/Vol] 0.1 mg/dL Critically low 0.2-1.0 [facility] Comment on above: Performed By: #### T SH, LIPID, CMP, URIC, T7, CRP #### [facility] [address] [place] [address] Dr. Walker Gabriel Calcium [Mass/Vol] 8.9 mg/dL Normal 8.5-10.1 [facility] Comment on above: Performed By: #### T SH, LIPID, CMP, URIC, T7, CRP #### [facility] [address] [place] [address] Dr. Walker Gabriel Chloride [Moles/Vol] 103 mmol/L Normal 98-107 The [facility] Comment on above: Performed By: #### T SH, LIPID, CMP, URIC, T7, CRP #### [facility] [address] [place] [address] Dr. Walker Gabriel CO2 [Moles/Vol] 28.4 mmol/L Normal 21.0-32.0 The [facility] Comment on above: Performed By: #### T SH, LIPID, CMP, URIC, T7, CRP #### [facility] [address] [place] [address] Dr. Walker Gabriel Creatinine [Mass/Vol] 0.91 mg/dL Normal 0.55-1.02 The [facility] Comment on above: Performed By: #### T SH, LIPID, CMP, URIC, T7, CRP #### [facility] [address] [place] [address] Dr. Walker Gabriel EGFR-AF FIJIAN >60 Normal >=60 The [facility] Comment on above: Performed By: #### T SH, LIPID, CMP, URIC, T7, CRP #### [facility] [address] [place] [address] Dr. Walker Gabriel EGFR-NON AF FIJIAN >60 Normal >=60 [facility] Comment on above: Performed By: #### T SH, LIPID, CMP, URIC, T7, CRP #### [facility] [address] [address] [address] Walker Gabriel Globulin (S) [Mass/Vol] 4.7 g/dL Normal [facility] Comment on above: Performed By: #### T SH, LIPID, CMP, URIC, T7, CRP #### [facility] [address] [place] [address] Dr. Walker Gabriel Glucose [Mass/Vol] 87 mg/dL Normal 74-106 [facility] Comment on above: Performed By: #### T SH, LIPID, CMP, URIC, T7, CRP #### [facility] [address] [place] [address] Dr. Walker Gabriel Potassium [Moles/Vol] 4.3 mmol/L Normal 3.5-5.1 [facility] Comment on above: Performed By: #### T SH, LIPID, CMP, URIC, T7, CRP #### [facility] [address] [place] [address] Dr. Walker Gabriel Protein [Mass/Vol] 7.7 g/dL Normal 6.4-8.2 The [facility] Comment on above: Performed By: #### T SH, LIPID, CMP, URIC, T7, CRP #### [facility] [address] [place] [address] Dr. Walker Gabriel Sodium [Moles/Vol] 135 mmol/L Critically low 136-145 [facility] Comment on above: Performed By: #### T SH, LIPID, CMP, URIC, T7, CRP #### [facility] [address] [place] [address] Dr. Walker Gabriel Urea nitrogen [Mass/Vol] 21.0 mg/dL Critically high 7.0-18.0 [facility] Comment on above: Performed By: #### T SH, LIPID, CMP, URIC, T7, CRP #### [facility] [address] [place] [address] Dr. Walker Gabriel Urea nitrogen/Creatinine [Mass ratio] 23.1 mg/mg Normal [facility] Comment on above: Performed By: #### T SH, LIPID, CMP, URIC, T7, CRP #### [facility] [address] [place], [place] [address] Dr. Walker Gabriel TSHon 04-18-2022 TSH 2.570 uIU/mL Normal 0.358-3.740 [facility] Comment on above: Performed By: #### T SH, LIPID, CMP, URIC, T7, CRP #### [facility] [address] [place], [place] [address] Dr. Walker Gabriel URIC ACID SERUMon 04-18-2022 Urate [Mass/Vol] 5.7 mg/dL Normal 2.6-6.0 [facility] Comment on above: Performed By: #### T SH, LIPID, CMP, URIC, T7, CRP #### [facility] [address] [place], [place] [address] Dr. Walker Gabriel US VENOUS DOPPLER L [...] by: JENNY ARIAS Date: 2022-04-18 18:43 Normal [facility] Clinical Supporton Clinical Support [id number] Rebecca Jewell 1985 Provider Department Jay 04/17/2022 [facility] No family history on file Reason for Visit and Comments: Worker's Compensation [732] Follow-up [523448] Concussion [436302] Normal [facility] Follow-Upon 04-03-2022 Follow-Up [id number] Rebecca Jewell 1985 Provider Department Center 04/03/2022 260-RUFINO PERDOMO MP ORTHO MPORTHO Chart Close Cosign Required by: Rufino Perdomo MD[[id number]] No family history on file Level of Service:27109 PA OFFICE/OUTPATIENT ESTABLISHED LOW MDM 20-29 MIN (GC) Reason for Visit and Comments: Pain [136] Edema [[id number]] Follow-up [908475] Normal [facility] Erroneous Encounteron 2021 Erroneous Encounter [id number] Rebecca Jewell Vilma 1985 Provider Department Center 03/31/2022 5732-LINDA TOPETE MP REHAB PSY Medical Pavi No family history on file Reason for Visit and Comments: Error (VOID this visit) [77] Normal [facility] CNOVon 02-03-2022 CNOV Office Visit (NMUAMH ) NABILA JEWELL ([id number]) 1985 Time Provider Department 02/03/22 11:00 AM CHAS ROMERO NMUA During your visit today, we recorded the following information about you: Pulse Blood pressure Weight Height 66/minute 117/84 122.7 kg 1.549 m Chas Roemro DO 02/03/2022 11:27 AM Signed [facility] Follow up Visit SERVICE DATE: 02/03/2022 PCP: Smiley Urias MD [address] [place] [address] Reason for Evaluation: Consultation requested by Self for an opinion regarding right leg weakness Family/Friend accompanying the patient today: none HPI: This is Ms. Nabila Jewell, a 36 year old female who presents to the [facility] with the chief complaint above. [...] get up after this. She went to [facility] in [place]. She was evaluated and did testing and [...] VIII: He (more content not included)... Normal [facility] Javier 01-30-2022 CNPN Telephone (NEURST) NABILA JEWELL ([id number]) 1985 F Date Time Provider Department 01/30/22 CHAS ROMERO During your visit today, we recorded the following information about you: Chas DO Heather 01/30/2022 10:44 AM Signed I called patient [...] Status:Closed by CHAS ROMERO on 01/30/22 Normal [facility] MRI KNEE LT WO CONon 01-28- 022 [...] SMILEY CALVILLO Date: 2022-01-28 12:18 Normal The [facility] EMG(NEURO/NI)on 01-23-2022 [facility] MG MAMM DIAGNOSTIC 3D GREGORY CA Don 01-22-2022 MG MAMM DIAGNOSTIC 3D GREGORY CAD Patient: NABILA JEWELL Exam Date: 01/22/2022 : 1985 Gender:F Ordering : DR SMILEY URIAS . Admission #: [id number] Family : Order #: [id number] CLICK HERE TO VIEW EXAM RADIOLOGY REPORT [...] Treatments None Family Cancers None LOCATION: The [facility] BREAST COMPOSITION: Scattered areas fibroglandular density. FINDINGS: [...] Gamble M.D. on 01/22/2022 at 15:30 Normal [facility] NABILA JEWELL ([id number]) 1985 F Date Time Provider Department 12/06/21 CHAS ROMERO [facility] During your visit today, we recorded the [...] Fully Assessed Reason for Visit: Insurance Authorization [[id number]] Prescriptions as of 12/08/2021 - potassium chloride [...] Encounter Status:Closed by SKY RAPP on 12/06/21 [facility] Javier 11-15-2021 CNPN Telephone ([facility]) NABILA JEWELL ([id number]) 1985 F Date Time Provider Department 11/15/21 CHAS ROMERO [facility] During your visit today, we recorded the following information about you: Rosana Ann Pss 11/15/2021 10:02 AM Addendum Pt requesting Dr. Romero send in C9 to [employer] [facility] for EMG. Jaxon phone [phone] ext [phone] Kassy PLEASE FAX TO:[phone] Also needs this faxed to sales and in home [employer] [place], [place] [employer]. [employer] Pt will call back with fax numbers. Rosana Ann Pss Allergies As of Date: 11/15/2021 (No Known [...] Encounter Status:Closed by ROSANA VALVERDE on 04/03/22 [facility] CNOVon 11-12-2021 CNOV Office Visit ([facility] ) NABILA JEWELL ([id number]) 1985 F Date Time Provider Department 11/12/21 2:00 PM CHAS ROMERO [facility] During your visit today, we recorded the following information about you: Pulse Blood pressure Weight Height 69/minute 120/82 118.6 kg 1.549 m Chas Romero DO 11/12/2021 2:58 PM Signed [facility] New Patient Visit SERVICE DATE: 11/12/2021 PCP: Smiley Urias MD [address] [place] [address] Reason for Evaluation: Consultation requested by Self for an opinion regarding right leg weakness Family/Friend accompanying the patient today: none HPI: This is Ms. Nabila Jewell, a 36 year old female who presents to the [facility] with the chief complaint above. She had an injury at work (March 2021)-she fell and hit her head on a prep table and fell onto her knee. She had difficulty moving to get up after this. She went to [facility] in [place]. She was evaluated and did testing and [...] (more content not included)... Normal [facility]-20[facility] NABILA JEWELL ([id number]) 1985 F Date Time Provider Department 10/22/21 CHAS ROMERO [facility] During your visit today, we recorded the following information about you: Sky Rapp 10/22/2021 10:54 AM Signed Referral, medical records received and scanned in for review. Allergies As of Date: 10/22/2021 (No Known Allergies) Date Reviewed: 06/14/2015 Reviewed by: Marly Fitzpatrick - Fully Assessed Reason for Visit: Received Outside Medical Records [3576] Prescriptions as of 10/22/2021 - Hydrochlorothiazide 12.5 [...] Status:Closed by SKY RAPP on 10/22/21 [facility] MACIE 3-6on 2 CK [Catalytic activity/Vol] 135 U/L Normal 30-135 The [facility] Comment on above: Performed By: #### C MREP #### [facility] [address] [place] [address] Dr. Walker Gabriel CK.MB [Mass/Vol] 0.84 ng/mL Normal <=2.37 The [facility] Comment on above: Performed By: #### C MREP #### [facility] [address] [place] [address] Dr. Walker Gabriel HSTROP 8.5 pg/mL Normal 4.0-35.5 The [facility] Comment on above: Result Comment: CUT- OFF POINTS HAVE BEEN ESTABLISHED BASED ON THE FOURTH UNIVERSAL DEFINITIONS OF MYOCARDIAL INFARCTION. THE UPPER REFERENCE LIMIT (URL) OF TROPONIN, DEFINED THE 99TH PERCENTILE OF cTnI DISTRIBUTION IN A REFERENCE POPULATION, HAS BEEN CONFIRMED THE DECISION THRESHOLD FOR WI DIAGNOSIS. Performed By: #### C MREP #### [facility] [address] [place] [address] Dr. Walker Gabriel CARDIAC MACIE ADMITon 022 CK [Catalytic activity/Vol] 114 U/L Normal 30-135 The [facility] Comment on above: Performed By: #### T SH, LIPID, CMP, URIC, T7, CRP #### [facility] [address] [place] [address] Dr. Walker Gabriel CK.MB [Mass/Vol] 0.71 ng/mL Normal <=2.37 The [facility] Comment on above: Performed By: #### T SH, LIPID, CMP, URIC, T7, CRP #### [facility] [address] [place] [address] Dr. Walker Gabriel HSTROP 6.1 pg/mL Normal 4.0-35.5 The [facility] Comment on above: Result Comment: CUT- OFF POINTS HAVE BEEN ESTABLISHED BASED ON THE FOURTH UNIVERSAL DEFINITIONS OF MYOCARDIAL INFARCTION. THE UPPER REFERENCE LIMIT (URL) OF TROPONIN, DEFINED THE 99TH PERCENTILE OF cTnI DISTRIBUTION IN A REFERENCE POPULATION, HAS BEEN CONFIRMED THE DECISION THRESHOLD FOR WI DIAGNOSIS. Performed By: #### T SH, LIPID, CMP, URIC, T7, CRP #### [facility] [address] [place] [address] Dr. Walker Gabriel COLLINS 43.0 ng/mL Normal <=61.5 The [facility] Comment on above: Performed By: #### T SH, LIPID, CMP, URIC, T7, CRP #### [facility] [address] [place] [address] Dr. Walker Gabriel CBC AUTO DIFFon 09-06-2021 BASO # 0.0 103/ul Normal 0.0-0.1 The [facility] Comment on above: Performed By: #### T SH, LIPID, CMP, URIC, T7, CRP #### [facility] [address] [place] [address] Dr. aWlker Gabriel Basophils/100 WBC (Bld) 0.5 % Normal 0.2-2.0 The [facility] Comment on above: Performed By: #### T SH, LIPID, CMP, URIC, T7, CRP #### [facility] [address] [place] [address] Dr. Walker Gabriel EO # 0.0 103/ul Normal 0.0-0.7 The [facility] Comment on above: Performed By: #### T SH, LIPID, CMP, URIC, T7, CRP #### [facility] [address] [place] [address] Dr. Walker Gabriel Eosinophils/100 WBC (Bld) 0.1 % Critically low 0.9-7.0 The [facility] Comment on above: Performed By: #### T SH, LIPID, CMP, URIC, T7, CRP #### [facility] [address] [place] [address] Dr. Walker Gabriel Erythrocyte distribution width (RBC) [Ratio] 12.3 % Normal 11.0-15.0 The [facility] Comment on above: Performed By: #### T SH, LIPID, CMP, URIC, T7, CRP #### [facility] [address] [place] [address] Dr. Walker Gabriel Hematocrit (Bld) [Volume fraction] 41.4 % Normal 36.0-48.0 The [facility] Comment on above: Performed By: #### T SH, LIPID, CMP, URIC, T7, CRP #### [facility] [address] [place] [address] Dr. Walker Gabriel Hemoglobin (Bld) [Mass/Vol] 13.6 g/dL Normal 12.0-16.0 The [facility] Comment on above: Performed By: #### T SH, LIPID, CMP, URIC, T7, CRP #### [facility] [address] [place] [address] Dr. Walker Gabriel IG # 0.02 10e3/ul Normal 0.00-0.03 [facility] Comment on above: Performed By: #### T SH, LIPID, CMP, URIC, T7, CRP #### [facility] [address] [place] [address] Dr. Walker Gabriel IG % 0.2 % Normal 0.0-0.5 [facility] Comment on above: Performed By: #### T SH, LIPID, CMP, URIC, T7, CRP #### [facility] [address] [place] [address] Dr. Walker Gabriel LYMPH # 2.6 103/ul Normal 1.2-3.8 The [facility] Comment on above: Performed By: #### T SH, LIPID, CMP, URIC, T7, CRP #### [facility] [address] [place] [address] Dr. Walker Gabriel Lymphocytes/100 WBC (Bld) 32.4 % Normal 20.5-60.0 The [facility] Comment on above: Performed By: #### T SH, LIPID, CMP, URIC, T7, CRP #### [facility] [address] [place] [address] Dr. Walker Gabriel MANUAL DIFF REQ NO Normal [facility] Comment on above: Performed By: #### T SH, LIPID, CMP, URIC, T7, CRP #### [facility] [address] [place] [address] Dr. Walker Gabriel MCH (RBC) [Entitic mass] 28.8 pg Normal 26.7-34.0 The [facility] Comment on above: Performed By: #### T SH, LIPID, CMP, URIC, T7, CRP #### The [facility] [address] [place] [address] Dr. Walker Gabriel MCHC (RBC) [Mass/Vol] 32.9 g/dL Normal 29.9-35.2 [facility] Comment on above: Performed By: #### T SH, LIPID, CMP, URIC, T7, CRP #### [facility] [address] [place] [address] Dr. Walker Gabriel MCV (RBC) [Entitic vol] 87.5 fL Normal 81.0-99.0 [facility] Comment on above: Performed By: #### T SH, LIPID, CMP, URIC, T7, CRP #### [facility] [address] [place] [address] Dr. Walker Gabriel MONO # 0.4 103/ul Normal 0.3-0.8 The [facility] Comment on above: Performed By: #### T SH, LIPID, CMP, URIC, T7, CRP #### [facility] [address] [place] [address] Dr. Walker Gabriel Monocytes/100 WBC (Bld) 5.0 % Normal 1.7-12.0 [facility] Comment on above: Performed By: #### T SH, LIPID, CMP, URIC, T7, CRP #### [facility] [address] [place] [address] Dr. Walker Gabriel NEUT # 5.0 103/ul Normal 1.4-6.5 [facility] Comment on above: Performed By: #### T SH, LIPID, CMP, URIC, T7, CRP #### [facility] [address] [place] [address] Dr. Walker Gabriel Neutrophils/100 WBC (Bld) 61.8 % Normal 43.0-75.0 The [facility] Comment on above: Performed By: #### T SH, LIPID, CMP, URIC, T7, CRP #### [facility] [address] [place] [address] Dr. Walker Gabriel Platelet mean volume (Bld) [Entitic vol] 8.4 fL Critically low 9.5-13.5 The [facility] Comment on above: Performed By: #### T SH, LIPID, CMP, URIC, T7, CRP #### [facility] [address] [place] [address] Dr. Walker Gabriel PLT 347 103/ul Normal 150-450 The [facility] Comment on above: Performed By: #### T SH, LIPID, CMP, URIC, T7, CRP #### [facility] [address] [place] [address] Dr. Walker Gabriel RBC 4.73 106/ul Normal 4.20-5.40 [facility] Comment on above: Performed By: #### T SH, LIPID, CMP, URIC, T7, CRP #### [facility] [address] [place] [address] Dr. Walker Gabriel WBC 8.1 103/ul Normal 4.0-11.0 [facility] Comment on above: Performed By: #### T SH, LIPID, CMP, URIC, T7, CRP #### [facility] [address] [place] [address] Dr. Walker Gabriel CRPon 09-06-2021 CRP 0.7 mg/dL Normal <=1.0 [facility] Comment on above: Performed By: #### T SH, LIPID, CMP, URIC, T7, CRP #### [facility] [address] [place] [address] Dr. Walker Gabriel PROF CHEM 8 (BAS METB)on Anion gap [Moles/Vol] 10.2 mmol/L Normal [facility] Comment on above: Performed By: #### T SH, LIPID, CMP, URIC, T7, CRP #### [facility] [address] [place] [address] Dr. Walker Gabriel Calcium [Mass/Vol] 9.0 mg/dL Normal 8.4-10.2 [facility] Comment on above: Performed By: #### T SH, LIPID, CMP, URIC, T7, CRP #### [facility] [address] [place] [address] Dr. Walker Gabriel Chloride [Moles/Vol] 99 mmol/L Normal 98-107 [facility] Comment on above: Performed By: #### T SH, LIPID, CMP, URIC, T7, CRP #### [facility] [address] [place] [address] Dr. Walker Gabriel CO2 [Moles/Vol] 26.5 mmol/L Normal 22.0-30.0 [facility] Comment on above: Performed By: #### T SH, LIPID, CMP, URIC, T7, CRP #### [facility] [address] [address] [address] Walker Gabriel Creatinine [Mass/Vol] 1.19 mg/dL Critically high 0.52-1.04 [facility] Comment on above: Performed By: #### T SH, LIPID, CMP, URIC, T7, CRP #### [facility] [address] [place] [address] Dr. Walker Gabriel EGFR-AF FIJIAN >60 Normal >=60 [facility] Comment on above: Performed By: #### T SH, LIPID, CMP, URIC, T7, CRP #### [facility] [address] [place] [address] Dr. Walker Gabriel EGFR-NON AF FIJIAN 51 mL/min/1.73m2 Critically low >=60 [facility] Comment on above: Performed By: #### T SH, LIPID, CMP, URIC, T7, CRP #### [facility] [address] [place] [address] Dr. Walker aGbriel Glucose [Mass/Vol] 105 mg/dL Normal 74-106 [facility] Comment on above: Performed By: #### T SH, LIPID, CMP, URIC, T7, CRP #### [facility] [address] [place] [address] Dr. Walker Gabriel Potassium [Moles/Vol] 3.7 mmol/L Normal 3.4-5.0 [facility] Comment on above: Performed By: #### T SH, LIPID, CMP, URIC, T7, CRP #### [facility] [address] [place] [address] Dr. Walker Gabriel Sodium [Moles/Vol] 132 mmol/L Critically low 137-145 [facility] Comment on above: Performed By: #### T SH, LIPID, CMP, URIC, T7, CRP #### [facility] [address] [place] [address] Dr. Walker Gabriel Urea nitrogen [Mass/Vol] 15.0 mg/dL Normal 7.0-17.0 [facility] Comment on above: Performed By: #### T SH, LIPID, CMP, URIC, T7, CRP #### [facility] [address] [address] [address] Walker Gabriel Urea nitrogen/Creatinine [Mass ratio] 12.6 mg/mg Normal [facility] Comment on above: Performed By: #### T SH, LIPID, CMP, URIC, T7, CRP #### [facility] [address] [address] [address] Walker [facility] mm/hr Critically high <=20 [facility] Comment on above: Performed By: #### T SH, LIPID, CMP, URIC, T7, CRP #### [facility] [address] [address] [address] Walker Gabriel XR CHEST 2 Von [...] by: CANDICE PONCE Date: 2021-09-06 20:51 Normal [facility] [place] [place] [facility] [place] April 09, 2021 Smiley Urias, [address] [facility] [address] [place] [address] Re: NABILA JEWELL Date of : 1985 Thank you for your referral of Nabila Jewell who was seen on consultation for abscess x 2. I have enclosed my consultation note for your review. Sincerely, Edson Davalos MD General Surgery Normal [facility] Facesheeton 04-08-2021 Facesheet [id number] 0CD:127 Normal [facility] Ambulatory Clinical Summaryo n 04-03-2021 Ambulatory Clinical Summary {[id number] }[id number] Normal [facility] Physician Referralon 021 Physician Referral [id number] 0CD:127 Normal [facility] SYPHILIS SCREENING WITH REFL EXon 03-06-2021 SYPHILIS TOTAL AB Non-Reactive Normal NONREACTIVE [facility] Comment on above: Result Comment: No s ignificant level of Treponema pallidum antibody detected. Repeat testing in 2 to 4 weeks may be considered if early infection or incubating syphilis infection is suspected. Performed By: #### S YPHR #### [facility] [address] [place] [address] BILIRUBIN,DIRECTon Bilirubin.indirect [Mass/Vol] 0.1 mg/dL Normal 0.0 - 0.3 [facility] Comment on above: Performed By: #### D BILI #### [address] [id number] CBC AND DIFFERENTIALon 03-05 % AUTOMATED IMMATURE GRAN 0.3 % Normal 0.0 - 0.9 [facility] Comment on above: Result Comment: Cassia ture Granulocyte Count (IG) includes promyelocytes, myelocytes and metamyelocytes but does not include bands. Percent differential counts (%) should be interpreted in the context of the absolute cell counts (cells/L). Performed By: #### C BCDF #### [address] [id number] Basophils (Bld) [#/Vol] 0.02 10*3/uL Normal 0.00 - 0.10 [facility] Comment on above: Performed By: #### C BCDF #### [address] [id number] Basophils/100 WBC (Bld) 0.3 % Normal 0.0 - 2.0 [facility] Comment on above: Performed By: #### C BCDF #### [address] [id number] Eosinophils (Bld) [#/Vol] 0.04 10*3/uL Normal 0.00 - 0.70 [facility] Comment on above: Performed By: #### C BCDF #### [address] [id number] Eosinophils/100 WBC (Bld) 0.6 % Normal 0.0 - 6.0 [facility] Comment on above: Performed By: #### C BCDF #### [address] [id number] Erythrocyte distribution width (RBC) [Ratio] 12.2 % Normal 11.5 - 14.5 [facility] Comment on above: Performed By: #### C BCDF #### [address] [id number] Hematocrit (Bld) [Volume fraction] 38.3 % Normal 36.0 - 46.0 [facility] Comment on above: Performed By: #### C BCDF #### [address] [id number] Hemoglobin (Bld) [Mass/Vol] 12.0 g/dL Normal 12.0 - 16.0 [facility] Comment on above: Performed By: #### C BCDF #### [address] [id number] Lymphocytes (Bld) [#/Vol] 2.33 10*3/uL Normal 1.20 - 4.80 [facility] Comment on above: Performed By: #### C BCDF #### [address] [id number] Lymphocytes/100 WBC (Bld) 35.6 % Normal 13.0 - 44.0 [facility] Comment on above: Performed By: #### C BCDF #### [address] [id number] MCHC (RBC) [Mass/Vol] 31.3 g/dL Low 32.0 - 36.0 [facility] Comment on above: Performed By: #### C BCDF #### [address] [id number] MCV (RBC) [Entitic vol] 93 fL Normal 80 - 100 [facility] Comment on above: Performed By: #### C BCDF #### [address] [id number] Monocytes (Bld) [#/Vol] 0.34 10*3/uL Normal 0.10 - 1.00 [facility] Comment on above: Performed By: #### C BCDF #### [address] [id number] Monocytes/100 WBC (Bld) 5.2 % Normal 2.0 - 10.0 [facility] Comment on above: Performed By: #### C BCDF #### [address] [id number] Neutrophils (Bld) [#/Vol] 3.80 10*3/uL Normal 1.20 - 7.70 [facility] Comment on above: Performed By: #### C BCDF #### [address] [id number] Neutrophils/100 WBC (Bld) 58.0 % Normal 40.0 - 80.0 [facility] Comment on above: Performed By: #### C BCDF #### [address] [id number] Platelets (Bld) [#/Vol] 221 10*3/uL Normal 150 - 450 [facility] Comment on above: Performed By: #### C BCDF #### [address] [id number] RBC 4.13 x10E12/L Normal 4.00 - 5.20 [facility] Comment on above: Performed By: #### C BCDF #### [address] [id number] WBC (Bld) [#/Vol] 6.6 10*3/uL Normal 4.4 - 11.3 [facility] Comment on above: Performed By: #### C BCDF #### [address] [id number] COMPREHENSIVE PANELon 2020 Albumin [Mass/Vol] 3.6 g/dL Normal 3.4 - 5.0 [facility] Comment on above: Performed By: #### C MP #### [address] [id number] ALP [Catalytic activity/Vol] 77 U/L Normal 33 - 110 [facility] Comment on above: Performed By: #### C MP #### [address] [id number] ALT [Catalytic activity/Vol] 20 U/L Normal 7 - 45 [facility] Comment on above: Result Comment: Cony ents treated with Sulfasalazine may generate falsely decreased results for ALT. Performed By: #### C MP #### [address] [id number] Anion gap [Moles/Vol] 10 mmol/L Normal 10 - 20 [facility] Comment on above: Performed By: #### C MP #### [address] [id number] AST [Catalytic activity/Vol] 24 U/L Normal 9 - 39 [facility] Comment on above: Performed By: #### C MP #### [address] [id number] Bilirubin [Mass/Vol] 0.5 mg/dL Normal 0.0 - 1.2 [facility] Comment on above: Performed By: #### C MP #### [address] [id number] Calcium [Mass/Vol] 9.2 mg/dL Normal 8.6 - 10.3 [facility] Comment on above: Performed By: #### C MP #### [address] [id number] Chloride [Moles/Vol] 101 mmol/L Normal 98 - 107 [facility] Comment on above: Performed By: #### C MP #### [address] [id number] Creatinine [Mass/Vol] 0.85 mg/dL Normal 0.50 - 1.05 [facility] Comment on above: Performed By: #### C MP #### [address] [id number] GFR- AM. >60 Normal >60 [facility] Comment on above: Result Comment: CALC ULATIONS OF ESTIMATED GFR ARE PERFORMED USING THE MDRD STUDY EQUATION FOR THE IDMS-TRACEABLE CREATININE METHODS. CLIN CHEM 2007;53:766-72 Performed By: #### C MP #### [address] [id number] GFR-NON AM. >60 Normal >60 [facility] Comment on above: Performed By: #### C MP #### [address] [id number] Glucose [Mass/Vol] 75 mg/dL Normal 74 - 99 [facility] Comment on above: Performed By: #### C MP #### [address] [id number] HCO3 (Bld) [Moles/Vol] 30 mmol/L Normal 21 - 32 [facility] Comment on above: Performed By: #### C MP #### [address] [id number] Potassium [Moles/Vol] 4.1 mmol/L Normal 3.5 - 5.3 [facility] Comment on above: Performed By: #### C MP #### [address] [id number] Protein [Mass/Vol] 7.0 g/dL Normal 6.4 - 8.2 [facility] Comment on above: Performed By: #### C MP #### [address] [id number] Sodium [Moles/Vol] 137 mmol/L Normal 136 - 145 [facility] Comment on above: Performed By: #### C MP #### [address] [id number] Urea nitrogen [Mass/Vol] 21 mg/dL Normal 6 - 23 [facility] Comment on above: Performed By: #### C MP #### [facility] [address], [place] [id number] HEPATITIS PANEL,ACUTE (HCFA) on 03-05-2021 HEPATITIS B CORE AB,IGM Non-Reactive Normal NONREACTIVE [facility] Comment on above: Result Comment: Resu lts from patients taking biotin supplements or receiving high-dose biotin therapy should be interpreted with caution due to possible interference with this test. Providers may contact their local laboratory for further information. Performed By: #### H EPA2 #### [facility] [address] [place] [address] HEPATITIS C AB Non-Reactive Normal NONREACTIVE [facility] Comment on above: Result Comment: Resu lts from patients taking biotin supplements or receiving high-dose biotin therapy should be interpreted with caution due to possible interference with this test. Providers may contact their local laboratory for further information. Performed By: #### H EPA2 #### [facility] [address] [place] [address] HEPATITIS A AB-IGM Non-Reactive Normal NONREACTIVE [facility] Comment on above: Result Comment: Biot in interference may cause falsely decreased results. Patients taking a Biotin dose of up to 5 mg/day should refrain from taking Biotin for 24 hours before sample collection. Providers may contact their local laboratory for further information. Performed By: #### H EPA2 #### [facility] [address] [place] [address] HEP.B SURFACE AG Non-Reactive Normal NONREACTIVE [facility] Comment on above: Result Comment: Biot in interference may cause falsely decreased results. Patients taking a Biotin dose of up to 5 mg/day should refrain from taking Biotin for 24 hours before sample collection. Providers may contact their local laboratory for further information. Performed By: #### H EPA2 #### [facility] [address] [place] [address] HIV 1/2 ANTIGEN/ANTIBODY SCR EEN WITH REFLEX TO CONFIRMATIONon 03-05-2021 HIV 1/2 AG/AB SCREEN Non-Reactive Normal NONREACTIVE [facility] Comment on above: Result [...] load). Performed By: #### H IV #### [facility] [address] [place] [address] SYPHILIS SCREENING WITH REFL EXon 03-05-2021 Lab Specimen Source Normal [facility] Comment on above: Performed By: #### S YPHR #### [facility] [address] [place] [address] Performed By: #### H EPA2 #### [facility] [address] [place] [address] Performed By: #### H IV #### [facility] [address] [place] [id number] HEPATITIS PANEL,ACUTE (HCFA) on 02-29-2020 HEPATITIS A AB-IGM NONREACTIVE Normal NONREACTIVE [facility] Comment on above: Result Comment: Biot in interference may cause falsely decreased results. Patients taking a Biotin dose of up to 5 mg/day should refrain from taking Biotin for 24 hours before sample collection. Providers may contact their local laboratory for further information. Performed By: #### H EPA2 #### [facility] [address] [place] [id number] HEPATITIS C AB NONREACTIVE Normal NONREACTIVE [facility] Comment on above: Result Comment: Resu lts from patients taking biotin supplements or receiving high-dose biotin therapy should be interpreted with caution due to possible interference with this test. Providers may contact their local laboratory for further information. Performed By: #### H EPA2 #### [facility] [address] [place] [id number] HEPATITIS B CORE AB,IGM NONREACTIVE Normal NONREACTIVE [facility] Comment on above: Result Comment: Resu lts from patients taking biotin supplements or receiving high-dose biotin therapy should be interpreted with caution due to possible interference with this test. Providers may contact their local laboratory for further information. Performed By: #### H EPA2 #### [facility] [address] [place] [address] HEP.B SURFACE AG NONREACTIVE Normal NONREACTIVE [facility] Comment on above: Result Comment: Biot in interference may cause falsely decreased results. Patients taking a Biotin dose of up to 5 mg/day should refrain from taking Biotin for 24 hours before sample collection. Providers may contact their local laboratory for further information. Performed By: #### H EPA2 #### [facility] [address] [place] [address] HIV ANTIGEN/ANTIBODY SCREENo n 02-29-2020 HIV AG/AB SCREEN NONREACTIVE Normal NONREACTIVE [facility] Comment on above: Result Comment: HIV Ag/Ab screen is performed using the Siemens [employer] HIV Ag/Ab Combo assay which detects the presence of HIV p24 antigen as well as antibodies to HIV-1 (Group M and O) and HIV-2. Performed By: #### H IV #### [facility] [address] [place] [id number] SYPHILIS SCREENING WITH REFL EXon 02-29-2020 SYPHILIS TOTAL AB NONREACTIVE Normal NONREACTIVE [facility] Comment on above: Result Comment: No s ignificant level of Treponema pallidum antibody detected. Repeat testing in 2 to 4 weeks may be considered if early infection or incubating syphilis infection is suspected. Performed By: #### S YPHR #### [facility] [address] [place] [address] BILIRUBIN,DIRECTon 0 Bilirubin.direct [Mass/Vol] 0.1 mg/dL Normal 0.0 - 0.3 [facility] Comment on above: Performed By: #### D BILI #### [facility] [address], [place] [id number] CBCon 02-28-2020 Erythrocyte distribution width (RBC) [Ratio] 12.6 % Normal 11.5 - 14.5 [facility] Comment on above: Performed By: #### C BC #### [facility] [address] [place], [place] [id number] Hematocrit (Bld) [Volume fraction] 38.4 % Normal 36.0 - 46.0 [facility] Comment on above: Performed By: #### C BC #### [address] [id number] Hemoglobin (Bld) [Mass/Vol] 12.5 g/dL Normal 12.0 - 16.0 [facility] Comment on above: Performed By: #### C BC #### [address] [id number] MCHC (RBC) [Mass/Vol] 32.6 g/dL Normal 32.0 - 36.0 [facility] Comment on above: Performed By: #### C BC #### [address] [id number] MCV (RBC) [Entitic vol] 88 fL Normal 80 - 100 [facility] Comment on above: Performed By: #### C BC #### [address] [id number] Platelets (Bld) [#/Vol] 350 10*3/uL Normal 150 - 450 [facility] Comment on above: Performed By: #### C BC #### [address] [id number] RBC (Bld) [#/Vol] 4.34 x10E12/L Normal 4.00 - 5.20 [facility] Comment on above: Performed By: #### C BC #### [address] [id number] WBC (Bld) [#/Vol] 5.6 10*3/uL Normal 4.4 - 11.3 [facility] Comment on above: Performed By: #### C BC #### [address] [id number] COMPREHENSIVE PANELon 2019 Albumin [Mass/Vol] 4.1 g/dL Normal 3.4 - 5.0 [facility] Comment on above: Performed By: #### C MP #### [address] [id number] ALP [Catalytic activity/Vol] 105 U/L Normal 33 - 110 [facility] Comment on above: Performed By: #### C MP #### [address] [id number] ALT [Catalytic activity/Vol] 24 U/L Normal 7 - 45 [facility] Comment on above: Result Comment: Cony ents treated with Sulfasalazine may generate falsely decreased results for ALT. Performed By: #### C MP #### [address] [id number] Anion gap [Moles/Vol] 10 mmol/L Normal 10 - 20 [facility] Comment on above: Performed By: #### C MP #### [address] [id number] AST [Catalytic activity/Vol] 22 U/L Normal 9 - 39 [facility] Comment on above: Performed By: #### C MP #### [address] [id number] Bilirubin [Mass/Vol] 0.4 mg/dL Normal 0.0 - 1.2 [facility] Comment on above: Performed By: #### C MP #### [address] [id number] Calcium [Mass/Vol] 9.1 mg/dL Normal 8.6 - 10.3 [facility] Comment on above: Performed By: #### C MP #### [address] [id number] Chloride [Moles/Vol] 101 mmol/L Normal 98 - 107 [facility] Comment on above: Performed By: #### C MP #### [address] [id number] Creatinine [Mass/Vol] 0.79 mg/dL Normal 0.50 - 1.05 [facility] Comment on above: Performed By: #### C MP #### [address] [id number] GFR- AM. >60 Normal >60 [facility] Comment on above: Result Comment: CALC ULATIONS OF ESTIMATED GFR ARE PERFORMED USING THE MDRD STUDY EQUATION FOR THE IDMS-TRACEABLE CREATININE METHODS. CLIN CHEM 2007;53:766-72 Performed By: #### C MP #### [address] [id number] GFR-NON AM. >60 Normal >60 [facility] Comment on above: Performed By: #### C MP #### [address] [id number] Glucose [Mass/Vol] 90 mg/dL Normal 74 - 99 [facility] Comment on above: Performed By: #### C MP #### [address] [id number] HCO3 (Bld) [Moles/Vol] 28 mmol/L Normal 21 - 32 [facility] Comment on above: Performed By: #### C MP #### [address] [id number] Potassium [Moles/Vol] 4.4 mmol/L Normal 3.5 - 5.3 [facility] Comment on above: Performed By: #### C MP #### [address] [id number] Protein [Mass/Vol] 8.1 g/dL Normal 6.4 - 8.2 [facility] Comment on above: Performed By: #### C MP #### [address] [id number] Sodium [Moles/Vol] 135 mmol/L Low 136 - 145 [facility] Comment on above: Performed By: #### C MP #### [address] [id number] Urea nitrogen [Mass/Vol] 21 mg/dL Normal 6 - 23 [facility] Comment on above: Performed By: #### C MP #### [address] [id number] SYPHILIS SCREENING WITH REFL EXon 09-01-2020 Lab Specimen Source Normal [facility] Comment on above: Performed By: #### S YPHR #### [facility] [address] [place] [address] Performed By: #### H IV #### [facility] [address] [place] [address] Performed By: #### H EPA2 #### [facility] [address] [place] [address] APTTon 08-13-2017 aPTT 27.9 s Normal 23.2-34.4 [facility] Comment on above: Result Comment: Perf ormed at [address] [place], [place] [id number] ([phone] Performed By: #### C DP, PT, PTT, BNP, BMP, TROPI ####[address] [place] [address] Basic Metabolic Profon 08-13 (cont.) Normal [facility] Comment on above: Result Comment: Aver age GFR for 30-39 years old: 107 mL/min/1.73sq mChronic Kidney Disease: <60 mL/min/1.73sq mKidney failure: <15 mL/min/1.73sq meGFR calculated using average adult body mass. Additional eGFR calculator available at:[email or web address] Performed By: #### C DP, PT, PTT, BNP, BMP, TROPI ####[address] , [place] [id number] Anion gap 11 mmol/L Normal 9-17 [facility] Comment on above: Performed By: #### C DP, PT, PTT, BNP, BMP, TROPI ####[address] [place] [address] BUN/CRE Ratio 21 High 9-20 [facility] Comment on above: Performed By: #### C DP, PT, PTT, BNP, BMP, TROPI ####[address] [place] [address] Calcium 9.6 mg/dL Normal 8.6-10.4 [facility] Comment on above: Performed By: #### C DP, PT, PTT, BNP, BMP, TROPI ####[address] [place] [address] Chloride 96 mmol/L Low 98-107 [facility] Comment on above: Performed By: #### C DP, PT, PTT, BNP, BMP, TROPI ####[address] , [facility] CO2 31 mmol/L Normal 20-31 [facility] Comment on above: Performed By: #### C DP, PT, PTT, BNP, BMP, TROPI ####[address] [place] [address] Creatinine 0.73 mg/dL Normal 0.50-0.90 [facility] Comment on above: Performed By: #### C DP, PT, PTT, BNP, BMP, TROPI ####[address] [place] [address] eGFR (non-black) mL/min/{1.73_m2} Normal >60 [facility] Comment on above: Performed By: #### C DP, PT, PTT, BNP, BMP, TROPI ####[address] [place] [address] Glucose mass conc 101 mg/dL High 70-99 [facility] Comment on above: Performed By: #### C DP, PT, PTT, BNP, BMP, TROPI ####[address] [place] [address] Potassium molar conc 3.2 mmol/L Low 3.7-5.3 [facility] Comment on above: Performed By: #### C DP, PT, PTT, BNP, BMP, TROPI ####[address] [place] [address] Sodium 138 mmol/L Normal 135-144 [facility] Comment on above: Performed By: #### C DP, PT, PTT, BNP, BMP, TROPI ####[address] [place] [address] Staging: Normal [facility] Comment on above: Result Comment: Stag e 1: Some kidney damage normal GFRStage 2: Mild kidney damage GFR 60-89Stage 3: Moderate kidney damage GFR 30-59Stage 4: Severe kidney damage GFR 15-29Stage 5: Severe kidney damage GFR <15ESRD - chronic treatment by dialysis or transplantPerformed at [address] [place] [address] Performed By: #### C DP, PT, PTT, BNP, BMP, TROPI ####[address] [place] [address] Urea nitrogen 15 mg/dL Normal 6-20 [facility] Comment on above: Performed By: #### C DP, PT, PTT, BNP, BMP, TROPI ####[address] [place] [address] Brain Natri. Peptideon 08-13 BNP pg/mL Normal <300 [facility] Comment on above: Result Comment: Pro- BNP results cannot be compared to BNP results. Performed By: #### C DP, PT, PTT, BNP, BMP, TROPI ####[address] [place] [address] BNP Normal [facility] Comment on above: Result Comment: Pro- BNP Reference Range:Rule Out: <300Grey Zone: Age <50 300-450 Age 50-75 300-900 Age >75 300-1800Usually represents mild to moderate HF but other cardiopulmonary causes cannot be ruled out.Rule In: Age <50 >450 Age 50-75 >900 Age >75 >1800Performed at [address] [place] [address] Performed By: #### C DP, PT, PTT, BNP, BMP, TROPI ####[address] , [place] [address] CBC with Diffon 08-13-2017 Abs. Basophil 0.00 k/uL Normal 0.0-0.2 [facility] Comment on above: Result Comment: Perf ormed at [address] [place], [place] [address] Performed By: #### C DP, PT, PTT, BNP, BMP, TROPI ####[address] , [place] [address] Abs.Neutrophil (Seg) 4.50 k/uL Normal 1.8-7.7 [facility] Comment on above: Performed By: #### C DP, PT, PTT, BNP, BMP, TROPI ####[address] , [place] [address] Basophils/100 WBC Auto (Bld) 0 % Normal 0-2 [facility] Comment on above: Performed By: #### C DP, PT, PTT, BNP, BMP, TROPI ####[address] , [place] [address] Eosinophils 0.20 10*3/uL Normal 0.0-0.4 [facility] Comment on above: Performed By: #### C DP, PT, PTT, BNP, BMP, TROPI ####[address] , [place] [address] Eosinophils/100 leukocytes 2 % Normal 0-8 [facility] Comment on above: Performed By: #### C DP, PT, PTT, BNP, BMP, TROPI ####[address] , [place] [address] Erythrocyte distribution width Auto Ratio (RBC) 15.0 % Normal 12.1-15.2 [facility] Comment on above: Performed By: #### C DP, PT, PTT, BNP, BMP, TROPI ####[address] [place] [address] Erythrocytes (RBC) 4.75 10*6/uL Normal 4.0-5.2 [facility] Comment on above: Performed By: #### C DP, PT, PTT, BNP, BMP, TROPI ####[address] [place] [address] Hematocrit (HCT) 41.0 % Normal 36-46 [facility] Comment on above: Performed By: #### C DP, PT, PTT, BNP, BMP, TROPI ####[address] [place] [address] Hemoglobin mass conc (Bld) 13.7 g/dL Normal 12.0-16.0 [facility] Comment on above: Performed By: #### C DP, PT, PTT, BNP, BMP, TROPI ####[address] [place] [address] Lymphocytes 2.60 10*3/uL Normal 1.0-4.8 [facility] Comment on above: Performed By: #### C DP, PT, PTT, BNP, BMP, TROPI ####[address] [place] [address] Lymphocytes/100 leukocytes 34 % Normal 24-44 [facility] Comment on above: Performed By: #### C DP, PT, PTT, BNP, BMP, TROPI ####[address] [place] [address] MCH 28.8 pg Normal 26-34 [facility] Comment on above: Performed By: #### C DP, PT, PTT, BNP, BMP, TROPI ####[address] [place] [address] MCHC mass conc (RBC) 33.4 g/dL Normal 31-37 [facility] Comment on above: Performed By: #### C DP, PT, PTT, BNP, BMP, TROPI ####[address] , [facility]83 MCV 86.3 fL Normal 80-100 [facility] Comment on above: Performed By: #### C DP, PT, PTT, BNP, BMP, TROPI ####[address] [place] [address] Monocytes 0.40 10*3/uL Normal 0.0-1.0 [facility] Comment on above: Performed By: #### C DP, PT, PTT, BNP, BMP, TROPI ####[address] , [facility]83 Monocytes/100 leukocytes 6 % Normal 0-12 [facility] Comment on above: Performed By: #### C DP, PT, PTT, BNP, BMP, TROPI ####[address] , [facility]83 Neutrophil (Seg) 58 % Normal 36-66 [facility] Comment on above: Performed By: #### C DP, PT, PTT, BNP, BMP, TROPI ####[address] [place] [address] Platelet mean volume (PMV) 6.7 fL Normal 6.0-12.0 [facility] Comment on above: Performed By: #### C DP, PT, PTT, BNP, BMP, TROPI ####[address] , [facility]83 Platelets 322 10*3/uL Normal 140-450 [facility] Comment on above: Performed By: #### C DP, PT, PTT, BNP, BMP, TROPI ####[address] , [facility]83 WBC (Leukocytes) 7.7 10*3/uL Normal 3.5-11.0 [facility] Comment on above: Performed By: #### C DP, PT, PTT, BNP, BMP, TROPI ####[address] [place] [address] Auto Diff Performed NOT REPORTED Normal [facility] Comment on above: Performed By: #### C DP, PT, PTT, BNP, BMP, TROPI ####[address] [place] [address] Erythrocyte morphology NOT REPORTED Normal [facility] Comment on above: Performed By: #### C DP, PT, PTT, BNP, BMP, TROPI ####[address] [place] [address] Erythrocytes (RBC) NOT REPORTED Normal [facility] Comment on above: Performed By: #### C DP, PT, PTT, BNP, BMP, TROPI ####[address] [place] [address] Granulocytes/100 WBC (Bld) NOT REPORTED Normal 0.00-0.30 [facility] Comment on above: Performed By: #### C DP, PT, PTT, BNP, BMP, TROPI ####[address] [place] [address] Immature granulocytes #/vol (Bld) NOT REPORTED Normal 0 [facility] Comment on above: Performed By: #### C DP, PT, PTT, BNP, BMP, TROPI ####[address] [place] [address] Platelets NOT REPORTED Normal [facility] Comment on above: Performed By: #### C DP, PT, PTT, BNP, BMP, TROPI ####[address] [place] [address] WBC Morphology NOT REPORTED Normal [facility] Comment on above: Performed By: #### C DP, PT, PTT, BNP, BMP, TROPI ####[address] [place] [address] ED Provider Noteon 8 HIM IP Note OR Bar Back Normal [facility] PTon 08-13-2017 INR Coag RelTime (PPP) 0.9 {INR} Normal 0.9-1.2 [facility] Comment on above: Result Comment: Perf ormed at [address] [place] [id number] [phone] Performed By: #### C DP, PT, PTT, BNP, BMP, TROPI ####[address] [place] [address] Prothrombin time (PT) Coag time (PPP) 9.7 s Normal 9.7-12.2 [facility] Comment on above: Performed By: #### C DP, PT, PTT, BNP, BMP, TROPI ####[address] [place] [address] Troponinon 08-13-2017 Troponin I.cardiac mass conc Normal [facility] Comment on above: Result Comment: Refe rence Range: <0.03 Within reference range. 0.03-0.09 Possible myocardial damage.Repeat at appropriate intervals to rule out chronic elevation. >= 0.10 Indicative of myocardial damage.Patients with high levels of Biotin oral intake (i.e >5mg/day) may have falsely decreased Troponin T levels. Samples collected within 8 hours of biotin intake may require additional information for diagnosis.Performed at [address] [place] [address] Performed By: #### C DP, PT, PTT, BNP, BMP, TROPI ####[address] [place] [address] Troponin T.cardiac mass conc ug/L Normal <0.03 [facility] Comment on above: Result Comment: Trop onin T results cannot be compared to Troponin-I results. Performed By: #### C DP, PT, PTT, BNP, BMP, TROPI ####[address] [place] [address] XR CHEST PORTABLEon 08-13-19 18 XR CHEST [...] by:RACHEL Haskinsigned by:Sruthi Mo MD08/13/17inal result Normal [facility] Vital Signs Date Time Vital Sign Value Performing Clinician Facility 04-20-2024 14:03-0400 Body height 154.94 cm MD Smiley Urias Work Phone: [facility] 04-20-2024 14:03-0400 Body mass index (BMI) [Ratio] 46.3 kg/m2 MD Smiley Urias Work Phone: [facility] 04-20-2024 14:03-0400 Body weight 111.18 kg MD Smiley Urias Work Phone: [facility] 04-20-2024 14:03-0400 Diastolic blood pressure 80 mm[Hg] MD Smiley Urias Work Phone: [facility] 04-20-2024 14:03-0400 Heart rate 74 /min MD Smiley Urias Work Phone: [facility] 04-20-2024 14:03-0400 Respiratory rate 12 /min MD Smiley Urias Work Phone: [facility] 04-20-2024 14:03-0400 Systolic blood pressure 112 mm[Hg] MD Smiley Urias Work Phone: [facility] 02-03-2022 10:50-0400 Body height 154.9 cm Chas Romero DO Work Phone: [facility] 02-03-2022 10:50-0400 Body weight 122.7 kg Chas Romero DO Work Phone: [facility] 02-03-2022 10:50-0400 Diastolic blood pressure 84 mm[Hg] Chas Romero DO Work Phone: [facility] 02-03-2022 10:50-0400 Heart rate 66 /min Chas Romero DO Work Phone: [facility] 02-03-2022 10:50-0400 SaO2% (BldA) [Mass fraction] 98 % Chas Romero DO Work Phone: [facility] 02-03-2022 10:50-0400 Systolic blood pressure 117 mm[Hg] Chas Romero DO Work Phone: [facility] 01-01-2022 11:45-0400 Body height 155.57 cm Rolando Miracle Other [employer] Other 01-01-2022 11:45-0400 Body mass index (BMI) [Ratio] 42.12 kg/m2 Rolando Miracle Other [employer] Other 01-01-2022 11:45-0400 Body weight 101.97 kg Rolando Nicholasley Other [employer] Other 11-13-2021 10:45-0400 Body height 155.57 cm Rolando Miracle Other [employer] Other 11-13-2021 10:45-0400 Body mass index (BMI) [Ratio] 42.12 kg/m2 Rolando Miracle Other [employer] Other 11-13-2021 10:45-0400 Body weight 101.97 kg Rolando Miracle Other [employer] Other 11-12-2021 13:49-0400 Body height 154.9 cm Chas Romero DO Work Phone: [facility] 11-12-2021 13:49-0400 Body weight 118.62 kg Chas Romero DO Work Phone: [facility] 11-12-2021 13:49-0400 Diastolic blood pressure 82 mm[Hg] Chas Romero DO Work Phone: [facility] 11-12-2021 13:49-0400 Heart rate 69 /min Chas Romero DO Work Phone: [facility] 11-12-2021 13:49-0400 SaO2% (BldA) [Mass fraction] 100 % Chas Romero DO Work Phone: [facility] 11-12-2021 13:49-0400 Systolic blood pressure 120 mm[Hg] Chas Romero DO Work Phone: [facility] 09-18-2021 11:15-0400 Body height 155.57 cm Rolando Turner Other [employer] Other 09-18-2021 11:15-0400 Body mass index (BMI) [Ratio] 42.12 kg/m2 Rolando Miracle Other [employer] Other 09-18-2021 11:15-0400 Body weight 101.97 kg Rolando Turner Other [employer] Other 07-24-2021 11:15-0500 Body height 155.57 cm Rolando Turner Other [employer] Other 07-24-2021 11:15-0500 Body mass index (BMI) [Ratio] 47.03 kg/m2 Rolando Miracle Other [employer] Other 07-24-2021 11:15-0500 Body weight 113.85 kg Rolando Miracle Other [employer] Other 06-12-2021 11:00-0500 Body height 155.57 cm Rolando Turner Other [employer] Other 06-12-2021 11:00-0500 Body mass index (BMI) [Ratio] 46.85 kg/m2 Rolando Miracle Other [employer] Other 06-12-2021 11:00-0500 Body weight 113.4 kg Rolando Miracle Other [employer] Other 05-15-2021 14:00-0500 Body height 155.57 cm Rolando Miracle Other [employer] Other 05-15-2021 14:00-0500 Body mass index (BMI) [Ratio] 42.12 kg/m2 Rolando Miracle Other [employer] Other 05-15-2021 14:00-0500 Body weight 101.97 kg Rolando Miracle Other [employer] Other 04-17-2021 10:30-0400 Body height 155.57 cm Rolando Miralce Other [employer] Other 04-17-2021 10:30-0400 Body mass index (BMI) [Ratio] 42.12 kg/m2 Rolando Miracle Other [employer] Other 04-17-2021 10:30-0400 Body weight 101.97 kg Rolando Miracle Other [employer] Other Encounters Encounter Date Encounter Type Care Provider Facility Start: 04-20-2024 End: 04-20-2024 ambulatory MD Smiley Urias Work Phone: [facility] Work Phone: Start: 04-20-2024 End: 04-20-2024 Patient encounter procedure MD Smiley Urias Work Phone: [facility] Work Phone: Start: 03-25-2024 ambulatory Luiz Garsia acility:[facility] Start: 03-25-2024 Registered Recurring MD Bharti Urias Work Phone: [facility] Start: 07-13-2023 End: 07-14-2023 ambulatory Fabián Archer MD Facility:[facility] Start: 06-15-2023 End: 06-16-2023 ambulatory Fabián Archer MD Facility:[facility] Start: 04-27-2023 End: 04-28-2023 ambulatory Fabián Archer MD Facility:[facility] Start: 03-04-2023 ambulatory PASCUAL [facility] Start: 02-23-2023 ambulatory [facility] Start: 01-12-2023 ambulatory [facility] Start: 01-01-2023 End: 01-01-2023 ambulatory [facility] Start: 12-01-2022 ambulatory PASCUAL [facility] Start: 09-29-2022 ambulatory PASCUAL [facility] Start: 09-15-2022 ambulatory [facility] Start: 09-15-2022 Encounter for other preprocedural examination JENNY [facility] Start: 08-22-2022 End: 08-23-[address] SMILEY URIAS . Facility: Start: 08-21-2022 ambulatory CAROLE PONCE [facility] Start: 08-06-2022 [facility] Start: 07-02-2022 ambulatory PASCUAL [facility] Start: 05-15-2022 End: 05-15-2022 [facility] Start: 05-12-2022 End: 05-13-2022 ambulatory [facility] Start: 05-05-2022 End: 05-06-2022 ambulatory [facility] Start: 04-30-2022 ambulatory PASCUALJEANNE URIBE [facility] Start: 04-18-2022 End: 04-19-[address] SMILEY URIAS . Facility: Start: 04-17-2022 ambulatory [facility] Start: 04-03-2022 End: 04-03-2022 ambulatory [facility] Start: 04-01-2022 End: 04-01-2022 ambulatory [facility] Start: 03-06-2022 ambulatory SMILEY URIAS Facility:[facility] Start: 02-03-2022 End: 02-03-2022 ambulatory SMILEY URIAS Facility:[facility] Start: 02-03-2022 End: 02-03-2022 Patient encounter [...] Start: 01-23-2022 End: 01-23-2022 ambulatory SMILEY URIAS Facility:[facility] Start: 01-23-2022 End: 01-23-2022 ambulatory Emg 400) Work Phone: Neurology Comment on above: EMG Start: 01-23-2022 End: 01-23-2022 Patient encounter procedure Emg 2 Neur Rej (Max Weight: 400) Work Phone: ANDREA SAUCEDA [facility] Start: 01-22-2022 End: 01-23-[address] SMILEY URIAS . Facility: Start: 01-13-2022 End: 01-14-2022 ambulatory NUZHAT ARZOLA Facility: Start: 01-01-2022 End: 01-01-2022 ambulatory Rolando Turner Other [employer] Other Start: 01-01-2022 Office outpatient vi sit 15 minutes Rolando Turner [facility] Start: 12-06-2021 Telephone encounter Chas laws DO Work Phone: Neurology Comment on above: Insurance Authorizat ion Start: 11-13-2021 End: 11-13-2021 ambulatory Rolando Turner Other [employer] Other Start: 11-13-2021 Office outpatient vi sit 15 minutes Rolando Turner [facility] Start: 11-12-2021 End: 11-12-2021 ambulatory CHSA ROMERO Facility:[facility] Start: 11-12-2021 End: 11-12-2021 Patient encounter procedure Chas Romero DO Work Phone: Neurology Comment on above: Right leg weakness ( Primary Dx) Start: 10-22-2021 Telephone encounter Chas laws DO Work Phone: Neurology Comment on above: [facility] Start: 10-02-2021 End: 10-16-[address] SMILEY RUIAS . Facility: Start: 09-30-2021 End: 09-30-2021 ambulatory Rolando Turner Other [employer] Other Start: 09-30-2021 Telephone encounter Rolando Turner [facility] Start: 09-24-2021 End: 09-26-2021 ambulatory UNKNOWN PROVIDER Facility:[facility] Start: 09-18-2021 End: 09-18-2021 ambulatory Rolando Turner Other [employer] Other Start: 09-18-2021 Office outpatient vi sit 15 minutes Rolando Turner [facility] Start: 09-06-2021 End: 09-07-2021 ambulatory PRETTY BEST Facility:[facility] Start: 07-24-2021 End: 07-24-2021 ambulatory Rolando Turner Other [employer] Other Start: 07-24-2021 Office outpatient vi sit 15 minutes Rolando Miracle [facility] Start: 06-12-2021 End: 06-12-2021 ambulatory Rolando Miracle Other [employer] Other Start: 06-12-2021 Office outpatient vi sit 15 minutes Rolando Miracle [facility] Start: 05-15-2021 End: 05-15-2021 ambulatory Rolando Miracle Other [employer] Other Start: 05-15-2021 Office outpatient vi sit 15 minutes Rolando Miracle [facility] Start: 04-17-2021 Office outpatient ne w 45 minutes Rolando Miracle [facility] Start: 08-13-2017 End: 08-13-2017 Emergency department patient visit EDSON VILLEGAS [facility] Procedures Date Procedure Procedure Detail Performing Clinician [...] EDSON ZAMAN Start: 08-13-2017 INSERT PERIPHERAL IV WI CODY V[place]LEGAS Start: 08-13-2017 TELEMETRY MONITORING WI [facility]ODY [place] Start: 08-13-2017 VITAL SIGNS EDSON ZAMAN Plan of Treatment Date Care Activity Detail Author Start: 02-27-2022 Influenza vaccination [facility] Start: 09-01-2015 HPV TESTING HPV TESTING [facility] Start: 2006 PAP TESTING PAP TESTING [facility] Start: 2004 Urine microalbumin profile DTAP,TDAP,TD (1 - Tdap) [facility] Start: 09-01-2003 ANNUAL PCP TEAM RESTAURANT COOK CAIN DISEASE VISIT ANNUAL PCP TEAM CHRONIC DISEASE VISIT [facility] Start: 09-01-2003 BP CONTROLLED (<130/80) BP CON TROLLED (<130/80) [facility] Start: 09-01-2003 HEPATITIS C SCREENING HEPATITIS C SC REENING [facility] Start: 09-01-2003 HIV SCREENING HIV SCREENING [facility] Start: 1997 Adult depression screening assessment DEPRESSION SCREENING [facility] Start: 1990 COVID-19 VACCINE (#1) COVID-19 VACCI NE (#1) [facility] Start: 1990 COVID-19 VACCINE (1) COVID-19 VACCIN E (1) [facility] Start: 03-03-1986 COVID-19 VACCINE (#1) COVID-19 VACCI NE (#1) [facility] Start: 1985 HEPATITIS B (1 of 3 - 3-dose series) HEPATITIS B (1 of 3 - 3-dose series) [facility] End: 11-12-2022 EMG(NEURO/NI) EMG(NEURO/NI) EMG Routine Right leg weakness 1 Occurrences starting 11/12/2021 until 11/12/2022 [facility] Work Phone: Comment on above: 1 Occurrences starti ng 11/12/2021 until 11/12/2022 [facility] Payers Date Payer Category Payer Self-pay 2022 Medicaid [id number] 2021 Unknown [facility] [id number] 2021-Present [phone] [place] [address] [facility] [id number] 2021 Unknown [id number] 2021 Unknown [id number] 2021 Worker's Compensation [id number] 2021 Worker's Compensation 2020 Medicaid [employer] 2020-Present [phone] [address] [place] [address] Medicaid 2020 Medicaid [employer] [id number] 2020-Present [phone] [address] [place] [address] Medicaid [id number] 2014 Unknown [id number] 1985 Unknown [id number] 32 1985 Unknown [id number] [id number] 47 1985 Unknown [id number] [id number] 93 1985 Unknown [id number] [id number] 93 1985 Unknown [id number] 2.16.840.1.241106.3.579.2.5 93 1985 Unknown [id number] 2.16.840.1.675835.3.579.2.5 93 1985 Unknown [id number] 2.16.840.1.908073.3.579.2.5 93 1985 Unknown [id number] 2.16.840.1.210062.3.579.2.5 93 1985 Unknown [id number] 2.16.840.1.388886.3.579.2.5 93 1985 Unknown [id number] 2.16.840.1.856528.3.579.2.5 93 1985 Unknown [id number] 2.16.840.1.496379.3.579.2.1 96 1985 Unknown [id number] 2.16.840.1.583520.3.579.2.1 96 1985 Unknown [id number] [id number] 96 1959 Medicaid [id number] 1959 Unknown [id number] [id number] Unknown [id number] [id number] 31 Worker's Compensation [id number] Social History Date Type Detail Facility Start: 09-29-2014 Tobacco smoking stat [facility] Smokes tobacco daily [facility] End: 08-15-2019 History of tobacco use Cigarette Smoker [facility] Start: 09-29-2014 End: 02-03-2022 Cigarettes smoked current (pack per day) - Reported 0.5 [facility] Start: 09-29-2014 End: 02-03-2022 Tobacco use and exposure Smokeless tobacco non-user [facility] Start: 03-02-2015 End: 02-03-2022 Alcohol intake Current non-drinker of alcohol (finding) [facility] Start: 1985 Sex Assigned At Not on file [facility] Start: 04-12-2021 End: 11-12-2021 Tobacco smoking status ARIS Ex-smoker [facility] End: 08-15-2019 History of tobacco use Current smoker [facility] Start: 11-02-2021 End: 02-03-2022 Exposure to SARS-CoV-2 (event) Not sure [facility] Sex Assigned At Sex Assigned At Bir th [employer] Other Start: 1985 Sex Assigned At Female F [facility] Clinical Notes 04-03-2021 to 03-04-2023 Chas Romero, DO - 02/03/2022 11:00 AM EDTTelephone Encounter - Chas Romero, DO - 01/30/2022 10:43 AM Nando Hernandez [...] 1 month she will likely be at [facility] and then will be released for work either with permanent restrictions or unrestricted depending upon how she feels. She has exhausted conservative care at this point. This patient was seen and examined in the presence of Dr. Cesar Escalante resident in physical medicine and rehabilitation. [facility] 02-23-2023 Note Attestation signed by Jenny Holley [...] Palacios MD Orthopedic Surgery, PGY-4 [facility] Pager: [phone] 02/23/23 2:00 PM This note was created [...] be an additional personal documentation from me. [facility] 01-12-2023 Note Attestation signed by Jenny Holley [...] be an additional personal documentation from me. [facility] 01-02-2023 Note I called and spoke t o the patient for a discharge follow up call following her procedure. The patient is doing well at home. She is taking ASA per orders. She denies any issues with her surgical dressing. I confirmed with the patient that she has a follow up appointment with Dr. Holley. [facility] 01-01-2023 Note Patient: Nabila cohn Procedure Summary Date: 01/01/23 Room / Location: [facility] OR [address] [place] [address] OR Anesthesia Start: 0900 Anesthesia Stop: 953 [...] no known notable events for this encounter. [facility] 01-01-2023 Note Airway Date/Time: 01/01/2023 9:16 AM Urgency: elective Airway not difficult General Information and Staff Patient location during procedure: OR Anesthesiologist: Han Aguiar MD Resident/GROUND INTELLIGENCE OFFICER/CAA: TANO Bonner Performed: other anesthesia staff Learner [...] 1 Number of other approaches attempted: 0 [facility] 01-01-2023 Note Patient: Nabila cohn Procedure Information Date/Time: 01/01/23 0930 Procedures: KNEE ARTHROSCOPY WITH (Left: Knee) SAUCERIZATION OF DISCOID MENISCUS AND CHONDROPLASTY OF TROCHLEA (Left: Knee) Location: [facility] OR / [facility] OR Surgeons: Jenny Holley MD Echo complete W/O contrast Order: [id number] Narrative ?Left Ventricle: Systolic function is normal [...] 09:51 Last Resulted: 07/12/19 12:35 Received From: [employer] Result Received: 03/31/22 20:06 View Encounter ??? 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 Additional Equipment Requests [facility] 12-09-2022 Note Called to confirm ap pointment with dietitian scheduled for 12/10; pt request to cancel appointment at this time. [facility] 12-01-2022 Note Attestation signed by Pascual Uribe [...] y.o. female who presents to [facility] today for [facility] post-concussion syndrome follow up HPI: Patient following [...] by mouth in (more content not included)... [facility] 09-29-2022 Note Attestation signed by Pascual Uribe [...] Medication refill was given Erika Damon, MS3 [facility] 09-15-2022 Note Orthopedic Surgery Subjective Chief complaint: Chief Complaint Patient presents with Left Knee - Pain 09/15/22 Nabila Jewell is a 37 year old female who presents for follow up evaluation of her left knee. The pain is unchanged and she would like to undergo surgery. 08/22/2022: Conservative measures have not provided mcc relief, seen today with complaints of left knee pain. 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 PT, medications and CSI have not provided mcc relief. 07/02/22 steroid injection at previous visit [...] patient's left knee was brought in from [facility] on a CD disc that was personally [...] -Patient reports conservative measures are not providing mcc relief in regard to her left knee. Refer to Dr Holley for opinion. 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 Encouraged pt to check with insurance for coverage prior to appointment. Time Spent With Pt: 10:00 - 11:30 am [facility] 07-31-2022 Note Called pt to confirm appointment with RD on 08/06/22. She is interested in attending appointment - fax sent to primary care physician (Dr. Urias) and requested for referral with nutrition related diagnosis. [facility] 07-02-2022 Note Subjective Patient ID: Nabila Jewell is a 36 y.o. female. Headache Leg Pain this patient is a 36-year-old female who sustained a work-related head injury. She continues with postconcussive syndrome. At her last visit we did start her on nabumetone been helping her headaches. They lessen the intensity. She continues with physical therapy here at [facility]. She has not yet been returning [...] Additional Comments: Seen on medical student today [facility] 05-15-2022 Note Attestation signed by Rufino Perdomo [...] patient's left knee was brought in from [facility] on a CD disc that was personally [...] Durham MD PGY-4 Orthopedic Surgery [facility] By using the attestations below, the signing [...] be an additional personal documentation from me. [facility] 04-30-2022 Note ASSESSMENT/PLAN: Nabila was seen today [...] y.o. female who presents to [facility] today for Workers Compensation Follow [...] strength 5/5, R (more content not included)... [facility] 04-30-2022 Note I saw and evaluated the patient, participating in the mc portions of the service. I reviewed the resident???s note. I agree with the resident???s findings and plan. Pascual Uribe MD [facility] 04-17-2022 Note Attestation signed by Marisa Carter PhD at 04/17/2022 7:11 PM I supervised all aspects of this evaluation. [facility] OUTPATIENT REHABILITATION SERVICES - NEUROPSYCHOLOGY [address] [place] [address] Ms. Nabila Jewell was seen via [employer] and then Telephone to discuss the neuropsychological evaluation. We discussed the results, their implications, applicable diagnoses, and recommendations. All questions were answered. At this time, she is discharged from the Neuropsychology service. A copy of these results will be available to her via [facility] [employer] or through contacting the Dept. of Health Information Management ([facility]) at [phone]. Contact the Neuropsychology Clinic at [phone] with questions. Linda Topete, PhD Clinical Psychology Neuropsychology [facility] 04-17-2022 Note Attestation signed by Marisa Carter PhD at 04/22/2022 1:40 PM I supervised all aspects of this service. REVIEWED BY: Marisa Carter, PhD, 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 She recalls multiple details of events [...] of the fall, but that a waiter/waitress informal came in to assist her and a supervisor coffee was also called, who in turn called EMS. Ms. Jewell reports she was transported to [facility] in [place], [place], and adds a few memories of [...] seen as a new patient for a [place] of Worker's Compensation claim related to concussion [...] also includes a 02/03/22 visit note from [facility] Neurology with Chas Romero DO [...] 2020 injury. Review of medical records from [facility] on 11/12/21 indicate additional history [...] but previously saw Dr. Carole Caba at [facility]. She reports she currently follows with Wendy Rubio CNP at [facility]. She reports no history of psychological or neuropsychological evaluation, and no history of psychiatric hospitalization. SUBSTANCE USE: Ms. Jewell reports no current use of alcohol and no history of significant alcohol use. She reports no illicit drug use (more content not included)... [facility] 04-03-2022 Note Attestation signed by Rufino Perdomo [...] patient's left knee was brought in from [facility] on a CD disc that was personally [...] 20 mg Route intra-articular Administered By Oanh Goins, fund raiser/Plan Nabila Jewell is a 36 y.o. year [...] 04/03/22 10:18 AM (more content not included)... [facility] 04-01-2022 Note [id number] Rebecca Jewell iva Esparza 1985 F Date Provider Department Center 04/01/2022 P[facility]TER [facility] PSY Medical [facility] No family history on file Reason for Visit and Comments: Concussion [[id number]] [facility] 04-01-2022 Note Attestation signed by Marisa Carter, PhD at 04/01/2022 1:03 PM I participated in and supervised all aspects of this service. REVIEWED BY: Marisa Carter, PhD, ABPP Board Certified Clinical Neuropsychologist [facility] OUTPATIENT REHABILITATION SERVICES - NEUROPSYCHOLOGY [address] [facility] [address] Ms. Nabila Jewell was seen for a neuropsychological evaluation on 04/01/2022. A report describing the results of this evaluation will be posted after the follow-up appointment is completed. Linda Topete, PhD Clinical Psychologist Neuropsychology Fellow [facility] 04-01-2022 Note Ms. Nabila Jewell has a follow-up appointment on 04/17/2022 with Linda Topete, PhD & Marisa Carter, PhD ABPP in Neuropsychology, to discuss the results of the evaluation on 04/01/2022. This appointment will be conducted via [facility]. [facility] 02-03-2022 Note HNO ID: [id number] Author: Chas Romero, DO Service: ? Author Type: Physician Type: Progress Notes Filed: 02/03/2022 11:27 AM Note Text: Neuromuscular Clinic Follow up Visit SERVICE DATE: 02/03/2022 PCP: Smiley Urias MD [address] [place] [id number] Reason for Evaluation: Consultation requested by Self for an opinion regarding right leg weakness Family/Friend accompanying the patient today: none HPI: This is Ms. Nabila Jewell, a 36 year old female who presents to the [facility] with the chief complaint above. [...] get up after this. She went to [facility] in [place]. She was evaluated and did testing and [...] significant dysarthria M (more content not included)... [facility] 02-03-2022 History of Present illness Narrative Neuromuscular Clinic Follow up Visit SERVICE DATE: 02/03/2022 PCP: Smiley Urias MD [address] [place] [address] Reason for Evaluation: Consultation requested by Self for an opinion regarding right leg weakness Family/Friend accompanying the patient today: none HPI: This is Ms. Nabila Jewell, a 36 year old female who presents to the [facility] with the chief complaint above. [...] get up after this. She went to [facility] in [place]. She was evaluated and did testing and [...] which included preparing to see the patient, [id number] patient care, completing clinical documentation, obtaining and/or reviewing separately obtained history, performing a medically appropriate examination, and counseling and educating the patient/family/caregiver. documented in this encounter [facility] 01-30-2022 Miscellaneous Notes I called patient and communicated results of EMG testing, all questions answered. Advised her that she does not need to follow up with me. Chas Romero DO documented in this encounter [facility] 01-23-2022 Note HNO ID: [id number] Author: Sofi Hernandez MD Service: ? Author [...] [facility], EMG Tech Sofi Hernandez MD [facility] 01-23-2022 History of Present illness [...] [facility], EMG Tech Sofi Hernandez MD documented in this encounter [facility] 01-14-2022 Note PROCEDURE: XR KNEE [...] authenticated by: PASCUAL GAMBLE Date: 2022-01-14 12:01 [facility] 01-01-2022 Evaluation note Encounter Date Diagnosis [...] months if needed Continue restrictions- off work. [employer] Other 06-10-2022 Miscellaneous Notes* Telephone Encounter - Sky Rapp - 12/06/2021 11:31 AM EDT Relationship to patient: Self Reason for call (non-seizure related) Patient called asking about status of prior authorization forEMG order Patient of Dr. Romero documented in this [facility] Evaluation note* Encounter Date Diagnosis [...] patient tolerated well with no adverse reactions. [employer] Other 05-17-2022 NoteHNO ID: [id number] Author: Chas Romero, DO Service: ? Author Type: Physician Type: Progress Notes Filed: 11/12/2021 2:58 PM Note Text: Neuromuscular Clinic New Patient Visit SERVICE DATE: 11/12/2021 PCP: Smiley Urias MD [address] [id number] Reason for Evaluation: Consultation requested by Self for an opinion regarding right leg weakness Family/Friend accompanying the patient today: none HPI: This is Ms. Nabila Jewell, a 36 year old female who presents to the [facility] with the chief complaint above. She had an injury at work (March 2021)-she fell and hit her head on a prep table and fell onto her knee. She had difficulty moving to get up after this. She went to [facility] in [place]. She was evaluated and did testing and [...] Hip abduction 4+ (giveaw (more content not included)...[facility]05-17-2022 Instructions* Patient Instructions* Chas Romero DO - 11/12/2021 2:47 PM EDT You were seen today for right leg weakness, I ordered EMG to assess for this. Continue physical therapy exercises. documented in this encounterK[facility] History of Present illness Narrative* Chas Romero DO - 11/12/2021 2:00 PM EDT Neuromuscular Clinic New Patient Visit SERVICE DATE: 11/12/2021 PCP: Smiley Urias MD [address] [place] [address] Reason for Evaluation: Consultation requested by Self for an opinion regarding right leg weakness Family/Friend accompanying the patient today: none HPI: This is Ms. Nabila Jewell, a 36 year old female who presents to the [facility] with the chief complaint above. She had an injury at work (March 2021)-she fell and hit her head on a prep table and fell onto her knee. She had difficulty moving to get up after this. She went to [facility] in [place]. She was evaluated and did testing and [...] toes and heels. ASSESSMENT: This is Nabila M Fanta, a 36 year old female with: 1. [...] which included preparing to see the patient, [id number] patient care, completing clinical documentation, obtaining and/or reviewing separately obtained history, performing a medically appropriate examination, counseling and educating the pat ient/family/caregiver and ordering medications, tests, or procedures. documented in this encounterK[facility] Miscellaneous Notes* Telephone Encounter - Sky Rapp - 10/22/2021 10:54 AM EDT Referral, medical records received and scanned in for review. documented in this encounterK[facility] Evaluation note* Encounter Date Diagnosis Assessment Notes Treatment Notes Treatment Clinical Notes Aug, Sprain of unspecified site of right knee, initial encounter (ICD-10 - S83.91XA) Continue physical therapy with approval [facility] and referral to neurology for knee weakness [...] Continue restrictions-of f work, Continue with therapy [employer] Other 01-26-2022 Evaluation note* Encounter Date Diagnosis [...] pain. Continue restrictions-off work, Continue with therapy [employer] Other 12-15-2021 Evaluation note* Encounter Date Diagnosis Assessment Notes Treatment Notes Treatment Clinical Notes May, Contusion of right knee, initial encounter (ICD-10 - S80.01XA) Nabila Jeewll presents with right knee contusion. MRI was [...] on the affected leg. Continue off work [employer] Other 11-17-2021 Evaluation note* Encounter Date Diagnosis [...] She has seen an occupational physician at [facility] who is ordered a hinged knee brace [...] weeks therapy. Apply for for cortisone injection. [facility] Continue off work [employer] Other 10-20-2021 Evaluation note* Encounter Date Diagnosis [...] will submit for an MRI approval throught [facility]. Continue off of work. Mar, Other See orders for this visit as documented in the electronic medical record. [employer] Other 10-06-2021 NoteChief Complaint consultation for abscess [...] 2: Father. Hyperlipidemia: Father. Hypertension: Mother and Father.Summa HealthComment on above: Result Comment: Electronically Signed By: LAVELL QUARLES, Edson Strong\Date and Time Signed: 04/03/21 16:35 EDTEvaluation note* Diagnosis Right leg weakness- Primary Other musculoskeletal symptoms referable to limbs [facility] noteNo InformationNortReg[facility] Other Evaluation note* Diagnosis Right leg weakness Other musculoskeletal symptoms referable to limbs documented in this encounter [facility]* Diagnosis Right leg weakness- Primary Other musculoskeletal symptoms referable to limbs documented in this encounter [facility]* Diagnosis Onset Date Resolution Status Pre-employment examination a [facility] Work Phone: Hisdbha general Narrative - Reported* Type Description Date Medical History Chronic back pain Medical History HTN Medical History Anxiety Surgical History cholecystectomy Surgical History C section x 2 Surgical History pilonidal cyst Hospitalization History HTN [employer] Other History general Narrative - Reported* Type Description Date Medical History Chronic back pain Medical History HTN Medical History Anxiety Surgical History cholecystectomy Surgical History C section x 2 Surgical History pilonidal cyst Hospitalization History HTN Hospitalization History see surgeries [facility] Other Reason for referral (narrative)* Outpatient Procedure (Routine) - Authorized Specialty Diagnoses / Procedures Referred By Daniel perry Referred To Contact [facility] Diagnoses Right leg weakness Procedures EMG(NEURO/NI) NERVE CONDUCTION STUDIES 9-10 STUDIES Chas Romero DO [address] [place] [address] Neurological [place] [address] [place] [address] Referral ID Status Reason Start Date Expiration Date Visits Requested Visits Authorized [id number] Authorized Auto-Generat ed Referral 11/12/2021 11/12/2022 1 1 [facility] for referral (narrative)* Reason referral for neurolo gy for weakness of the right knee and second opinion Diagnosis 1 Sprain of unspecifie d site of right knee, initial encounter (S83.91XA) Referral Organization 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 Pre-employment exami [facility] Additional Source Comments INFORMATION SOURCE (unrecogn ized section and content) DATE CREATED AUTHOR [facility]/2017 [facility] DATE CREATED AUTHOR AUTHOR'S ORGANIZ ATION [facility]02/2020 [facility] DATE CREATED AUTHOR AUTHOR'S ORGANIZ ATION 03/06/2021 [facility] ical Center DATE CREATED AUTHOR AUTHOR'S ORGANIZ ATION 04/10/2021 [facility] DATE CREATED AUTHOR AUTHOR'S ORGANIZ ATION 09/29/2021 [facility] DATE CREATED AUTHOR AUTHOR'S ORGANIZ ATION 03/06/2022 [facility] DATE CREATED AUTHOR AUTHOR'S ORGANIZ ATION 04/04/2022 [facility] DATE CREATED AUTHOR AUTHOR'S ORGANIZ ATION 08/29/2022 [facility] DATE CREATED AUTHOR AUTHOR'S ORGANIZ ATION 03/08/2023 [facility] DATE CREATED AUTHOR AUTHOR'S ORGANIZ ATION 07/22/2023 [facility] DATE CREATED AUTHOR AUTHOR'S ORGANIZ ATION 03/30/2024 [facility] Source Comments (unrecognize d section and content) In the event this informatio n is protected by the Federal Confidentiality of Alcohol and Drug Abuse Patient Records regulations: The Federal rules restrict any use of the information to criminally investigate or prosecute any alcohol or drug abuse patient.[facility] the event this information is protected by the Federal Confidentiality of Alcohol and Drug Abuse Patient Records regulations: The Federal rules restrict any use of the information to criminally investigate or prosecute any alcohol or drug abuse patient.[facility] the event this information is protected by the Federal Confidentiality of Alcohol and Drug Abuse Patient Records regulations: The Federal rules restrict any use of the information to criminally investigate or prosecute any alcohol or drug abuse patient.[facility] the event this information is protected by the Federal Confidentiality of Alcohol and Drug Abuse Patient Records regulations: The Federal rules restrict any use of the information to criminally investigate or prosecute any alcohol or drug abuse patient.[facility] the event this information is protected by the Federal Confidentiality of Alcohol and Drug Abuse Patient Records regulations: The Federal rules restrict any use of the information to criminally investigate or prosecute any alcohol or drug abuse patient.[facility] the event this information is protected by the Federal Confidentiality of Alcohol and Drug Abuse Patient Records regulations: The Federal rules restrict any use of the information to criminally investigate or prosecute any alcohol or drug abuse patient.[facility] Reason for Visit (unrecogniz ed section and content) Reason Comments Received Outside Medical Records Reason Comments New Patient Musculoskeletal Problem RT lower extremi ties Reason Comments Insurance Authorization Reason Comments EMG Specialty Diagnoses / Procedures Referred By Daniel perry Referred To Contact [facility] Diagnoses Right leg weakness Procedures EMG(NEURO/NI) NERVE CONDUCTION STUDIES 9-10 STUDIES Chas Romero DO [address] [place] [address] [place] [address] Referral ID Status Reason Start Date Expiration Date V isits Requested Visits Authorized [id number] Closed Auto-Generate d Referral 11/12/2021 11/12/2022 1 1 Reason Comments Results Reason Comments Established Patient Follow Up Visit Care Teams (unrecognized sec tion and content) Gas Regulator Repairer Relationship Specialty Start Date End Date Smiley Urias MD PCP - General Family Practice 03/02/14 Serafin Bartlett, DO [address] [place] [phone] Referring Neurology 04/14/19 Rolando Turner, DO [address] [place] [address] Referring Orthopedics 10/11/21 Gas Regulator Repairer Relationship Specialty Start Date End Date Smiley Urias MD PCP - General Family Practice 03/02/14 Serafin Bartlett, DO [address] [phone] Referring Neurology 04/14/19 Rolando Turner, DO [address] [place] [address] Referring Orthopedics 10/11/21 Gas Regulator Repairer Relationship Specialty Start Date End Date Smiley Urias MD PCP - General Family Practice 03/02/14 Serafin Bartlett, DO [address] [phone] Referring Neurology 04/14/19 Rolando Turner, DO [address] [place] [address] Referring Orthopedics 10/11/21 Zehra Holly, HARD TILE SETTER APPRENTICE [address] [place] [phone] Referring Family Practice 11/19/21 Gas Regulator Repairer Relationship Specialty Start Date End Date Smiley Urias MD PCP - General Family Practice 03/02/14 Serafin Bartlett, DO [address] [phone] Referring Neurology 04/14/19 Rolando Turner, DO [address] [place] [address] Referring Orthopedics 10/11/21 Zehra Holly, HARD TILE SETTER APPRENTICE [address] [place] [facility] [place] [phone] Referring Family Practice 11/19/21 Gas Regulator Repairer Relationship Specialty Start Date End Date Smiley Urias MD PCP - General Family Practice 03/02/14 Serafin Bartlett, DO [address] [place] [address], [place] [address] Referring Neurology 04/14/19 Rolando Turner, DO [address] [place] [address] Referring Orthopedics 10/11/21 Zehra Holly, HARD TILE SETTER APPRENTICE [address] [facility] [place] [address] Referring Family Practice 11/19/21 Team Status: Active Member Role Status Dates Smiley Urias MD Primary Care Provider Active Team Status: Active Member Role Status Dates Smiley Urias MD Primary Care Provider Active Start: March 25, 2024 Luiz Knight MD Attending Provider Active Start: March 25, 2024 Team Status: Inactive Member Role Status Dates Smiley Urias MD Primary Care Provider Active Start: April 20, 2024 End: April 20, 2024 Sky Diane DO Attending Provider Active Sta rt: April 20, 2024 End: April 20, 2024 Goals (unrecognized section and content) Goals may be documented in a n alternate section FOR RECORDS PERTAINING TO PATIENTS WHO ARE [...] BE BASED ON THE PRIMARY CLINICAL RECORDS. [employer] [facility]. provides no warranty or guarantee of the accuracy or completeness of information in this document.
[2024-06-02 12:46] LABS: Basophils Percent Auto 0.3 % (0.2-2.0); Eosinophils Percent Auto 0.4 % (0.9-7.0); Hematocrit 40.7 % (36.0-48.0); Hemoglobin 13.2 g/dL (12.0-16.0); Immature Granulocytes Abs Auto 0.01 10^3/uL (0.00-0.03); Immature Granulocytes Pct Auto 0.1 % (0.0-0.5); Lymphocytes Absolute Auto 1.7 10^3/uL (1.2-3.8); Lymphocytes Percent Auto 24.2 % (20.5-60.0); Mean Corpuscular HGB Conc 32.4 g/dL (29.9-35.2); Mean Corpuscular Hemoglobin 29.2 pg (26.7-34.0); Mean Platelet Volume 8.3 fL (9.5-13.5); Monocytes Absolute Auto 0.3 10^3/uL (0.3-0.8); Monocytes Percent Auto 3.7 % (1.7-12.0); Neutrophils Absolute Auto 4.9 10^3/uL (1.4-6.5); Neutrophils Percent Auto 71.3 % (43.0-75.0); Platelet Count 313 10^3/uL (150-450); Red Blood Count 4.52 10^6/uL (4.20-5.40); Red Cell Distribution Width 12.2 % (11.0-15.0); White Blood Count 6.8 10^3/uL (4.0-11.0)
[2024-06-02 13:12] LABS: Estimated Average Glucose 120 mg/dL; Glycohemoglobin A1C 5.8 % (4.5-6.2)
[2024-06-02 13:45] LABS: Alanine Aminotransferase 17 U/L (14-59); Albumin Globulin Ratio 0.8; Albumin Level 3.3 g/dL (3.4-5.0); Alkaline Phosphatase 104 U/L (46-116); Anion Gap 8.6; Aspartate Amino Transferase 14 U/L (15-37); BUN Creatinine Ratio 22.3; Bilirubin Total 0.4 mg/dL (0.2-1.0); Calcium 9.2 mg/dL (8.5-10.1); Carbon Dioxide 32.1 mmol/L (21.0-32.0); Chloride 103 mmol/L (98-107); Chol HDL Ratio 2.5; Cholesterol 175 mg/dL (<=200); Estimated GFR (African America >60 (>=60 mL/min/1.73m^2); Estimated GFR (Non-African Ame 60 (>=60 mL/min/1.73m^2); Globulin 4.4 g/dL; Glucose 96 mg/dL (74-106); HDL Cholesterol 69 mg/dL (40-60); Potassium 4.7 mmol/L (3.5-5.1); Sodium 139 mmol/L (136-145); Thyroid Stimulating Hormone 0.855 uIU/mL (0.358-3.740); Total Protein 7.7 g/dL (6.4-8.2); Triglycerides 45 mg/dL (<=150)
== END 2024-06-02 12:09 | disposition home or self-care (01) ==
LOC: LAB 12:10
PROVIDERS: PCP Family Medicine; Visit Provider Family Medicine
DX: R73.09 Other abnormal glucose (principal); I10 Essential (primary) hypertension; E66.01 Morbid (severe) obesity due to excess calories; G47.30 Sleep apnea, unspecified; D64.9 Anemia, unspecified
CPT/HCPCS: 36415; 80053; 80061; 83036; 83525; 83540; 84436; 84443; 84481; 85025

== ENCOUNTER 2024-09-20 08:30 | Outpatient (OUT) | payer OTHER, SELFPAY ==
[2024-09-20 09:03] LABS: Basophils Percent Auto 0.4 % (0.2-2.0); Eosinophils Percent Auto 0.5 % (0.9-7.0); Hematocrit 40.4 % (36.0-48.0); Hemoglobin 13.3 g/dL (12.0-16.0); Immature Granulocytes Abs Auto 0.02 10^3/uL (0.00-0.03); Immature Granulocytes Pct Auto 0.3 % (0.0-0.5); Lymphocytes Absolute Auto 2.8 10^3/uL (1.2-3.8); Mean Corpuscular HGB Conc 32.9 g/dL (29.9-35.2); Mean Corpuscular Hemoglobin 29.8 pg (26.7-34.0); Mean Corpuscular Volume 90.4 fL (81.0-99.0); Mean Platelet Volume 8.5 fL (9.5-13.5); Monocytes Absolute Auto 0.4 10^3/uL (0.3-0.8); Monocytes Percent Auto 5.1 % (1.7-12.0); Neutrophils Absolute Auto 4.5 10^3/uL (1.4-6.5); Neutrophils Percent Auto 57.7 % (43.0-75.0); Platelet Count 273 10^3/uL (150-450); Red Blood Count 4.47 10^6/uL (4.20-5.40); Red Cell Distribution Width 12.1 % (11.0-15.0); White Blood Count 7.8 10^3/uL (4.0-11.0)
[2024-09-20 09:51] LABS: Estimated Average Glucose 111 mg/dL; Glycohemoglobin A1C 5.5 % (4.5-6.2)
[2024-09-20 10:42] LABS: Anion Gap 12.1; Carbon Dioxide 28.9 mmol/L (21.0-32.0); Chloride 103 mmol/L (98-107); Glucose 107 mg/dL (74-106); Sodium 140 mmol/L (136-145)
[2024-09-20 10:43] LABS: Alanine Aminotransferase 18 U/L (14-59); Albumin Globulin Ratio 0.8; Albumin Level 3.2 g/dL (3.4-5.0); Alkaline Phosphatase 112 U/L (46-116); Aspartate Amino Transferase 16 U/L (15-37); BUN Creatinine Ratio 19.6; Bilirubin Total 0.2 mg/dL (0.2-1.0); Estimated GFR (African America >60 (>=60 mL/min/1.73m^2); Estimated GFR (Non-African Ame >60 (>=60 mL/min/1.73m^2); Globulin 4.1 g/dL; Total Protein 7.3 g/dL (6.4-8.2)
[2024-09-20 10:44] LABS: HCG Quantitative <1 mIU/mL
[2024-09-21 04:07] LABS: Progesterone 0.4 ng/mL (.)
[2024-09-21 05:07] LABS: HBsAg Screen Negative (Negative); HCV Ab Non Reactive (Non Reactive); HIV Ab/p24 Ag Screen Non Reactive (Non Reactive); Hep A Ab, IgM Negative (Negative); Hep B Core Ab, IgM Negative (Negative); Rubella Antibodies, IgG 2.02 index (Immune >0.99)
[2024-09-21 12:09] LABS: Rapid Plasma Reagin, Quant Non Reactive titer (NonRea<1:1)
== END 2024-09-20 08:31 | disposition home or self-care (01) ==
PROVIDERS: PCP Family Medicine
DX: O09.521 Supervision of elderly multigravida, first trimester (principal)
CPT/HCPCS: 36415; 80053; 80074; 83036; 84144; 84702; 85025; 86592; 86762; 86850; 86900; 86901; 87389

== ENCOUNTER 2024-09-22 08:55 | Outpatient (OUT) | payer OTHER, SELFPAY ==
--- NOTE | 2024-09-22 09:00 | US_ITS ---
The [address] [address] Patient Name: RIVERA OWENS MRN: [id number] date: 1985 Sex: F Assigned Patient Location: US Current Patient Location: US Accession/Order Number: [id number] Exam Date: 09/22/2024 11:42 Report Date: 09/22/2024 11:45 At the request of: SMILEY URIAS MD Procedure: US pelvis transvaginal TRANSABDOMINAL AND TRANSVAGINAL PELVIC ULTRASOUND HISTORY: Abnormal uterine bleeding. Hematuria. Negative test. COMPARISON: 05/20/2024 FINDINGS: The uterus measures 8.0 x 4.7 x 4.2 cm. No uterine lesion identified. The endometrium has a total combined thickness of 5mm. The RIGHT ovary not visualized. LEFT ovary measures 2.3 x 1.2 x 3.1 cm. Bilateral ovarian blood flow identified. No free fluid identified. There is no adnexal mass identified. US/US pelvis transvaginal IMPRESSION: Unremarkable transabdominal and transvaginal pelvic ultrasound Impression dictated by: Gordy Gomez M.D.09/22/2024 11:45 AM Dictation Location: [place] [address] Electronically authenticated by: [id number] Y Date: 09/22/2024 11:45
== END 2024-09-22 08:56 | disposition home or self-care (01) ==
LOC: US 08:55
PROVIDERS: PCP Family Medicine; Visit Provider Family Medicine
DX: N93.8 Other specified abnormal uterine and vaginal bleeding (principal)
CPT/HCPCS: 76830

== ENCOUNTER 2025-05-28 13:27 | Emergency (ER) | payer OTHER, SELFPAY ==
--- OUTSIDE RECORDS SUMMARY | 2024-04-04 06:10 | XMS_ITS ---
Author Organization [facility] Address [address] [place] [address] Care Team Providers Care Car Painter Name Role Phone Yovani Echols Primary Care Provider UnavailDario Beltran Unavailable [phone] Allergies Allergen (clinical drug ingredient) Drug/Non Drug Allergy documented on EMR Reaction Allergy Type Onset Date Status Information temporarily unavailable erythromycin Unknown Drug Allergy Active REASON FOR VISIT RIGHT KNEE PAIN Medications Medication SIG (Take, Route, Frequency, Duration) Notes Start Date End Date Status lisinopril ActivemethadoneActiveXanaxActive Social History Tobacco Use: Social History Observation Description Date Details (start date - stop date) Never Smoker NA - NA AUDIT-C (Standard) Question Answer Notes Did you have a drink containing alcohol in the p ast year? 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) Activeconfirmed Vital Signs Height 5'1 in 04/04/2024 Weight 240 lbs 04/04/2024 BMI 45.34 04/04/2024 Encounters Encounter Location Date Provider Diagnosis [facility] Office [address] [place] [address] [place] [address] 04/04/2024 Dario Mccoy Acute pain of right [...] RIVERA OWENS MDOB:[birth year] (39 yo F)Acc No.[id number]:04/04/2024 Patient:?ROMAN RIVERA Vilma :?Dario Mccoy[facility]1985???Age:38 Y ???Sex:FemaleDate:04/04/2024hone:[phone]:[address] [place], [place] [address]Pcp:Yovani Echols Subjective: * Chief Complaints: * 1 [...] Electronic signature of Dario Mccoy MD on 05/28/2025 at 01:58 PM ESTSign off status: Pending * Provider: Rut Mccoy MD Date: Generated for Printing/Faxing/eTransmitting on:?05/28/2025 01:58 PM EST History and Physical Notes * [...]
--- OUTSIDE RECORDS SUMMARY | 2024-04-11 06:00 | XMS_ITS ---
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 * Medical History: Objective: * Vitals: Assessment: Plan: * Treatment: * * Electronic signature of Simon Echols MD, [id number] on 05/28/2025 at 01:58 PM EST Sign off status: PendingVisit Status:?CANC (Cancelled) * Provider: Angela Echols MD (TTC) Date: 1 Generated for Printing/Faxing/eTransmitting on:?05/28/2025 01:58 PM EST
--- OUTSIDE RECORDS SUMMARY | 2024-04-25 05:05 | XMS_ITS ---
Author Organization [facility] Address [address] [facility] [place] [address] Care Team Providers Care Book Packer Name Role Phone Dr. Dwaine Bates Primary Care Provider [phone] REASON FOR VISIT FILLING NEEDS SHAVED DOWN AGA JOSE Encounters Encounter Location Date Provider Diagnosis [facility] [address] [place] [address] 04/25/2024 Dwaine Bates Plan Of Treatment No Information Progress Notes * RIVERA OWENS MDOB:[birth year] (39 yo F)Acc No.[id number]:04/25/2024 Patient:?RIVERA OWENS :?Dwaine Bates DDSDOB:1985???Age:38 Y???Sex: FemaleDate:04/25/2024hone:[phone]:[address] [place], [place] [id number] Subjective: * Chief Complaints: * F ILLING NEEDS SHAVED DOWN AGA JOSE * Electronic signature of Dr. Dwaine Bates , DMD, [id number] on 05/28/2025 at 01:59 PM ESTSign off status: Pending * Provider: Paco Bates DDS Date: Generated for Printing/Faxing/eTransmitting on:?05/28/2025 01:59 PM EST
--- OUTSIDE RECORDS SUMMARY | 2024-04-27 08:45 | XMS_ITS ---
Author Organization [facility] Address [address] [place] [address] Care Team Providers Care Accreditation Manager Name Role Phone Dr. Dwaine Bates Primary Care Provider REASON FOR VISIT filling needed grinded down rocio Encounters Encounter Location Date Provider Diagnosis [facility] [address] [place] [address] 04/27/2024 Dwaine Bates Plan Of Treatment No Information Progress Notes * RIVERA OWENS MDOB:[birth year] (39 yo F)Acc No.[id number]:04/27/2024 Patient:?RIVERA OWENS :?Dwaine Bates DDSDOB:1985???Age:38 Y???Sex: FemaleDate:04/27/2024hone:[phone]:[address] [place], [place] [id number] Subjective: * Chief Complaints: * F illing needed grinded down rocio * Electronic signature of Dr. Dwaine Bates , DMD, [id number] on 05/28/2025 at 01:57 PM ESTSign off status: Pending * Provider: Paco Bates DDS Date: Generated for Printing/Faxing/eTransmitting on:?05/28/2025 01:57 PM EST
--- OUTSIDE RECORDS SUMMARY | 2024-05-02 03:10 | XMS_ITS ---
Author Organization [facility] Address [address] [place] [address] Care Team Providers Care Tube Builder Airplane Name Role Phone Yovani Echols Primary Care Provider Dario Phipps [facility] [phone] REASON FOR VISIT RIGHT KNEE PAIN Encounters Encounter Location Date Provider Diagnosis [facility] [address] [place] [address] [place] [address] 05/02/2024 Dario Mccoy Plan Of Treatment No Information Progress Notes * RIVERA OWENS MDOB:[birth year] (39 yo F)Acc No.[id number]:05/02/2024 Patient:?RIVERA OWENS :?[facility]1985???Age:38 Y ???Sex:FemaleDate:05/02/2024hone:[phone]:[address] [place], [place] [address]Pcp:Yovani Echols Subjective: * Chief Complaints: * 1 . RIGHT KNEE PAIN. * Medical History: Objective: * Vitals: Assessment: Plan: * Treatment: Forms: * Images: * Electronic signature of Dario Mccoy MD on 05/28/2025 at 01:59 PM ESTSign off status: Pending * Provider: Rut Mccoy MD Date: 07/02/2023 Generated for Printing/Faxing/eTransmitting on:?05/28/2025 01:59 PM EST
--- OUTSIDE RECORDS SUMMARY | 2024-09-05 05:15 | XMS_ITS ---
Author Organization [facility] Address [address] [place] [address] Care Team Providers Care Speech/Language Therapist Name Role Phone Dr. Dwaine Bates Primary Care Provider [phone] REASON FOR VISIT FILLING Encounters Encounter Location Date Provider Diagnosis [facility] [address] [address] 09/05/2024 Dwaine Bates Plan Of Treatment No Information Progress Notes * RIVERA OWENS MDOB:[birth year] (39 yo F)Acc No.[id number]:09/05/2024 Patient:?RIVERA OWENS :?Dwaine Bates DDSDOB:1985???Age:39 Y???Sex: FemaleDate:09/05/2024Phone:[phone]:[address] [place], [place] [id number] Subjective: * Chief Complaints: * F ILLING * Electronic signature of Dr. Dwaine Bates , DMD, [id number] on 05/28/2025 at 01:58 PM ESTSign off status: Pending * Provider: Paco Bates DDS Date: 0 09/05/2024 Generated for Printing/Faxing/eTransmitting on:?05/28/2025 01:58 PM EST
--- OUTSIDE RECORDS SUMMARY | 2025-01-03 09:00 | XMS_ITS ---
[facility] [address] [place] [address] Care Team Providers Care Register Of Deeds Name Role Phone Dr. Dwaine Bates Primary Care Provider [phone] Cathy Chung Fernie [phone] REASON FOR VISIT PROPHY XRAYS EXAM Encounters Encounter Location Date Provider Diagnosis [facility] [address] [place] [address] 01/03/2025 Cathy Thorne Acute gingivitis, plaque induced K05.00 and Encounter for dental examination and cleaning with abnormal findings Z01.21 Assessments Encounter Date Diagnosis (ICD Code) Assessment Notes Treatment Notes Treatment Clinical Notes Section Notes 01/03/2025 Acute gingivitis, plaque induced (ICD-10 - K05.00) 01/03/2025Encounter for dental examination and cleaning with abnormal findings (ICD-10 - Z01.21) Plan Of Treatment No Information Progress Notes * RIVERA OWENS MDOB:[birth year] (39 yo F)Acc No.[id number]:01/03/2025 Patient:?RIVERA OWENS :?Cathy ThorneDOB:1985???Age:39 Y???Sex: FemaleDate:01/03/2025Phone:[phone]:[address] [place] [address]Kzp:Dr. Dwaine Bates Subjective: * Chief Complaints: * P ROPHY XRAYS EXAM Objective: * Dental Examination/Plan : * Tooth / Surface Status Description Provider Date TPPROPHYLAXIS - [id number]/03/2025TPPERIODIC ORAL [id number]/08/2025 Assessment: * Assessment: 1.?Acute gingivitis, plaque induced - K05.00 (Primary)???2.?Encounter for dental examination and cleaning with abnormal findings - Z01.21??? * Electronic signature of Cathyrita Thorne on 05/28/2025 at 01:58 PM ESTSign off status: Pending * Provider: Bao Thorne Date: 0 01/03/2025 Generated for Printing/Faxing/eTransmitting on:?05/28/2025 01:58 PM EST
[2025-05-28 13:40] VITALS: BP 144/100; PULSE 75; TEMP 36.8; O2SAT 100; BMI 47.2
--- OUTSIDE RECORDS SUMMARY | 2025-05-28 13:57 | XMS_ITS | CCD ---
Author Organization [facility] Care Team Providers Care Learning And Development Assistant Name Role Phone EDSON VILLEGAS Unavailable Unavailab SMILEY Dawkins Unavailable Unavailable PROVIDER, UNKNOWN Attending Unavailable PROVIDER, UNKNOWN Admitting Unavailable Smiley Urias MD Primary Care Provider [phone] Serafin Bartlett DO Unavailable Rolando Turner DO Unavailable Zehra Holly CNP Unavailable Rolando Turner Unavailable Smiley Urias MD Primary Care Provider [phone] Serafin Bartlett DO Unavailable Rolando Turner DO Unavailable [phone] Zehra Holly CNP Unavailable [phone] SMILEY URIAS Referring Unavailable SMILEY URIAS Primary Care Unavailable EBRAHEIM, RUFINO Attending Unavailable ANNE MARIE, RUFINO Admitting Unavailable HEATHER, CHAS Attending Unavailable SMILEY URIAS Primary Care Unavailable SMILEY URIAS Primary Care Unavailable CINDILE, HCAS Referring Unavailable SMILEY URIAS Primary Care Unavailable [...] HOY ., DR REIS Primary Care Unavailable JUANA, DR JENNY Barbosa Consulting Unavailable HOY ., [...] EBRAHEIMRUFINO Attending Unavailable JENNY HOLLEY Attending Unavailable EBHEIMRUFINO Attending Unavailable MARISA CARTER Attending Unavailable SUMIT [...] Unavailable Gianni QUARLES, Fabián Allen Attending Unavailable MD Smiley Urias Primary Care Provider MD Luiz Knight Attending Provider Smiley Urias Primary Care Physician [phone] Catherine Willis Attending Unavailable Catherine Willis Admitting Unavailable Luiz Knight Attending Unavailab Luiz Brennan Admitting Unavailab Smiley Dawkins Primary Care Unavailable Provider, None Primary Care Unavailable Allergies Allergy ClassificationReported Allergen(s)Allergy TypeDate of OnsetReaction(s) Facility (10 sources)Erythromycin; Translations: [ERYTHROMYCIN]Drug Sfxzdgk90-53-4614 anaphylaxis, Anaphylaxis (disorder)[facility] Repository (1 source)ErythromycinDrug Cxaxyfw68-42-3700Vje [facility] Repository (2 sources)ErythromycinDrug Tpodeds53-24-7610wjdzztecohuDlr [facility] Repository (1 source)Erythromycin; Translations: [ERYTHROMYCIN LACTOBIONATE]Drug Allergy 25-62-7962[facility] (1 source)ALLERGIES NOT ON FILE; Translations: [ALLERGIES NOT ON FILE]Propensity to adverse reactions (disorder)[facility] Repository (2 sources)Azithromycin; Translations: [azithromycin]Drug Fftlskm38-73-4525 [facility] ([facility])ErythromycinDrug Zdrqlkh73-22-5662KzbqptrrfGeorgetown Behavioral Hospital Repository Medications Current Medications MedicationDrug Class(es)DatesSig (Normalized)Sig (Original)Cane - (6 sources)Start: 18-03-9346Zugn - as directed May, Activeibuprofen 600 mg oral tablet (1 source)Nonsteroidal Anti-inflammatory DrugStart: 50-76-5770swbk 600 mg by mouth every eight hoursIbuprofen Active 600 MG PO Q8H April 12, 2021 12:00amMagnesium (8 sources)Magnesium ActiveMethadone (14 sources)Opioid AgonistStart: 44-41-2372hxni 38 mg by mouth every six hours as needed for painmethadone 5 mg/5 mL oral solution 38 mg = 38 mL, Oral, q6hr, PRN for pain, Refills(s) 0 Start Date:04/03/21 Status: Orderedtake 52 mg by mouth once dailyMethadone HCl 10 MG/5ML 52mg p.o. qd Activetake 52 mg by mouth once dailymethadone HCl (METHADONE ORAL) Take 52 mg by mouth once daily. 0 Active Methadone HCl ActiveComment on above:Take 52 mg by mouth once daily.Potassimin (8 sources)Potassimin Active Completed/Discontinued Medications MedicationDrug Class(es)DatesSig (Normalized)Sig (Original)ALPRAZolam 0.5 mg oral tablet (16 sources)BenzodiazepineStart: 69-21-3482rnvm 1 tablet by mouth twice daily as needed for anxietyALPRAZolam (XANAX) 0.5 mg tablet TAKE 1 TABLET BY ORAL ROUTE 2 TIMES PER DAY NEEDED FOR ANXIETY 0 10/31/2021 ActiveStart: 59-06-0255uyow 1 tablet by mouth at bedtime as needed for anxietyXanax 1 mg Tab 1 mg = 1 tab(s), Oral, Bedtime, PRN for anxiety, Refills(s) 0 Start Date: 04/03/21 Status: Ordered End: 77-69-0828xned 2 tablets by mouth every eight hours as neededALPRAZolam (XANAX) 1 mg tablet Take 2 mg by mouth three times daily as needed. 0 11/12/2021 DiscontinuedComment on above:Take 2 mg by mouth three times daily as needed. TAKE 1 TABLET BY ORAL ROUTE 2 TIMES PER DAY NEEDED FOR ANXIETYamitriptyline hydrochloride 100 mg oral tablet (2 sources)Tricyclic Antidepressant End: 51-13-2239mhoq 1 tablet by mouth once daily at bedtimeamitriptyline (ELAVIL) 100 mg tablet Take 100 mg by mouth daily at bedtime. 0 11/12/2021 DiscontinuedComment on above:Take 100 mg by mouth daily at bedtime.carvedilol 25 mg oral tablet (2 sources)alpha-Adrenergic Jose De Jesus, beta-Adrenergic BlockerStart: 10-06-2014 End: 95-99-9740envr 1 tablet by mouth twice dailycarvedilol (COREG) 25 mg tablet Take 1 tablet by mouth twice daily. 180 tablet 3 10/06/2014 11/12/2021 DiscontinuedComment on above:Take 1 tablet by mouth twice daily.cloNIDine hydrochloride 0.1 mg oral tablet (2 sources)Central alpha-2 Adrenergic AgonistStart: 04-06-2015 End: 98-21-1203tnsu 1 tablet by mouth three times dailycloNIDine HCl (CATAPRES) 0.1 mg tablet Take 1 tablet by mouth three times daily. 240 tablet 3 04/06/2015 11/12/2021 DiscontinuedComment on above:Take 1 tablet by mouth three times daily.hydrALAZINE hydrochloride 50 mg oral tablet (2 sources)Arteriolar VasodilatorStart: 10-06-2014 End: 79-72-9483vczi 1 tablet by mouth twice dailyhydrALAZINE (APRESOLINE) 50 mg tablet Take 1 tablet by mouth twice daily. 180 tablet 3 10/06/2014 11/12/2021 DiscontinuedComment on above:Take 1 tablet by mouth twice daily. hydroCHLOROthiazide 12.5 mg oral capsule (2 sources)Thiazide DiureticStart: 05-18-2015 End: 49-60-5384tdup 1 capsule by mouth once dailyHydrochlorothiazide 12.5 mg capsule Take 1 capsule by mouth once daily. 30 capsule 5 05/18/2015 11/12/2021 DiscontinuedComment on above:Take 1 capsule by mouth once daily. hydroCHLOROthiazide 12.5 mg / irbesartan 300 mg oral tablet (2 sources)Thiazide Diuretic, Angiotensin 2 Receptor BlockerStart: 10-06-2014 End: 92-24-0292vovb 1 tablet by mouth once dailyIrbesartan-Hydrochlorothiazide 300-12.5 mg per tablet Take 1 tablet by mouth once daily. 90 tablet 3 10/06/2014 11/12/2021 DiscontinuedComment on above:Take 1 tablet by mouth once daily. lisinopril 20 mg oral tablet (14 sources)Angiotensin Converting Enzyme InhibitorStart: 44-53-3686kewg 1 tablet by mouth once dailylisinopril (ZESTRIL, PRINIVIL) 20 mg tablet Take 20 mg by mouth once daily. 0 10/30/2021 ActiveComment on above:Take 20 mg by mouth once daily.magnesium oxide 400 mg oral tablet (6 sources)Start: 86-56-0743qiqy 1 tablet by mouth twice dailymagnesium oxide (MAG-OX) 400 mg (241.3 mg magnesium) tablet Take 1 tablet by mouth twice daily. 0 10/30/2021 ActiveComment on above:Take 1 tablet by mouth twice daily.morphine sulfate 30 mg extended release oral capsule (2 sources)Opioid Agonist End: 15-46-2414wxya 1 capsule by mouth three times dailymorphine ER (LUANA) 30 mg 24 hr capsule Take 30 mg by mouth three times daily. 0 11/12/2021 Discont inuedComment on above:Take 30 mg by mouth three times daily.OXcarbazepine 150 mg oral tablet (2 sources)Anti-epileptic Agent End: 98-04-8575gpwq 1 tablet by mouth twice dailyOXcarbazepine (TRILEPTAL) 150 mg tablet Take 150 mg by mouth twice daily. 0 11/12/2021 DiscontinuedComment on above:Take 150 mg by mouth twice daily.oxyCODONE hydrochloride 20 mg oral tablet (2 sources)Opioid Agonist End: 55-59-4253pxed 1 tablet by mouth four times dailyoxyCODONE 20 mg tab Take 20 mg by mouth four times daily. 0 11/12/2021 DiscontinuedComment on above:Take 20 mg by mouth four times daily.pantoprazole 40 mg delayed release oral tablet (2 sources)Proton Pump Inhibitor End: 90-68-9157tohl 1 tablet by mouth once dailypantoprazole DR (PROTONIX) 40 mg tablet Take 40 mg by mouth once daily. 0 11/12/2021 DiscontinuedComment on above:Take 40 mg by mouth once daily.potassium chloride 20 meq extended release oral tablet (6 sources)Start: 02-19-4932xyuu 1 tablet by mouth once dailypotassium chloride 20 mEq ER Tab 20 mEq = 1 tab(s), Oral, Daily, Refills(s) 0 Start Date: 04/03/21 Status: Orderedpotassium chloride in water 20 mEq/100 mL IVPB Inject 20 mEq intravenously one time only. 0 ActiveComment on above:Inject 20 mEq intravenously one time only.promethazine hydrochloride 25 mg oral tablet (2 sources)Phenothiazine End: 17-24-2956rxcl 1 tablet by mouth every six hours as neededpromethazine (PHENERGAN) 25 mg tablet Take 25 mg by mouth every 6 hours as needed. 0 11/12/2021 DiscontinuedComment on above:Take 25 mg by mouth every 6 hours as needed.spironolactone 50 mg oral tablet (2 sources)Aldosterone AntagonistStart: 10-06-2014 End: 04-76-7072hxav 1 tablet by mouth once dailyspironolactone (ALDACTONE) 50 mg tablet Take 1 tablet by mouth once daily. 90 tablet 3 10/06/2014 11/12/2021 DiscontinuedComment on above:Take 1 tablet by mouth once daily.tiZANidine 4 mg oral tablet (2 sources)Central alpha-2 Adrenergic Agonist End: 80-66-2184pbib 1 tablet by mouth every six hours as neededtiZANidine (ZANAFLEX) 4 mg tablet Take 4 mg by mouth every 6 hours as needed. 0 11/12/2021 DiscontinuedComment on above:Take 4 mg by mouth every 6 hours as needed.traMADol hydrochloride 50 mg oral tablet (2 sources)Opioid Agonist End: 47-91-8574fjou 50 mg by mouth four times dailyTRAMADOL HCL (TRAMADOL ORAL) Take 50 mg by mouth four times daily. 0 11/12/2021 DiscontinuedComment on above: Take 50 mg by mouth four times daily.triamcinolone acetonide 40 mg/ml injectable suspension (3 sources)CorticosteroidStart: 49-66-3489Bkrpizj-40 October, 40 mgStart: 61-17-0923pkftdowppoxkm Top 0.1% Crm 1 james, Topical, BID, Refill(s) 0 Start Date: 04/03/21 Status: Ordered Problems Active Problems Problem ClassificationProblemDateDocumented DateEpisodic/ChronicAbdominal pain (1 source)Unspecified abdominal pain; Translations: [UNSPECIFIED ABDOMINAL PAIN] Onset: 29-99-6103PplotsfpGainrqleoisbzk/social admission (2 sources)Patient encounter status; Translations: [Encounter for pre-employment examination]75-49-4225SbasrxcxBfjpxvfk reactions (1 source)Fksban78-50-0955IhccfqcsCclxyuw disorders (2 sources)Generalized anxiety disorder; Translations: [Anxiety disorder, unspecified]Onset: 67-29-7943LkwhgheTkltubrtv of lipid metabolism (1 source)Hyperlipidemia, unspecified; Translations: [HYPERLIPIDEMIA UNSPECIFIED]Onset: 32-15-4867HgltghwF Codes: Fall (1 source)Fall on same level from slipping, tripping or stumbling ; Translations: [Fall on same level from slipping, tripping and stumbling without subsequent striking against object, initial encounter]28-03-3431Zztbpfjl Essential hypertension (10 sources)Hypertensive disorder; Translations: [Essential (primary) hypertension]Onset: 075299-11-2372HmzoqxgCojfx and electrolyte disorders (1 source)Rwsecokildg61-43-7260EnfnprtfXwqkllhq; including migraine (1 source)Ecbgpsts05-94-9887TzhgcjjQlksmilprave with complications and secondary hypertension (1 source)Hypertensive urgency; Translations: [HYPERTENSIVE URGENCY]Onset: 30-70-5490BpqpyusMqvwyfl and fatigue (6 sources)Fatigue; Translations: [Other fatigue]92-68-4047CrrgatmgUuxdqcrio disorders (1 source)Tgdaivcrzknz48-72-1402BrgfbmwJbwj disorders (1 source)Major depressive disorder, single episode, unspecified; Translations: [MANDEEP DEPRESS D/O SINGLE EPIS UNS]Onset: 76-20-6724TwjukuvUoevr and unspecified benign neoplasm (1 source)Adrenal cortical zmehvnu26-22-8307CrogpzcjRnjva bone disease and musculoskeletal deformities (2 sources)Chondromalacia, left knee; Translations: [Chondromalacia, left knee] Onset: 19-03-4127QwoamswoMnlzq congenital anomalies (2 sources)Discoid meniscus; Translations: [Discoid meniscus]Onset: 09-15-2022 ChronicOther connective tissue disease (3 sources)Weakness of right leg; Translations: [Other symptoms and signs involving the musculoskeletal system]EpisodicOther connective tissue disease (1 source)Other symptoms and signs involving the musculoskeletal system; Translations: [Right leg weakness]Onset: 49-70-0990ZrmvvzyvUgbxh endocrine disorders (6 sources)Adrenal mass; Translations: [Other specified disorders of adrenal gland]Onset: 745076-23-5055NbykwcdLihes inflammatory condition of skin (1 source)Kdqdreewk63-51-7203TdlmaotOyhll injuries and conditions due to external causes (1 source)Minor head injury; Translations: [Unspecified injury of head, initial encounter]71-93-9266DmgoqxmhGozvn nutritional; endocrine; and metabolic disorders (1 source)Hypomagnesemia; Translations: [HYPOMAGNESEMIA]Onset: 27-79-1487Zjkgckc Other nutritional; endocrine; and metabolic disorders (2 sources)Obesity, unspecified; Translations: [Obesity, unspecified]Onset: 83-75-7338RoyvupmRehkk nutritional; endocrine; and metabolic disorders (1 source)Body mass index 40+ - severely kctua21-89-9965HmmjwcjZlvcj nutritional; endocrine; and metabolic disorders (1 source)Wnncmcyotyljsy30-63-7981WgnwaxdClgke nutritional; endocrine; and metabolic disorders (1 source)Morbid xcyhjgc46-22-9407ZodwxviDriywnvz codes; unclassified (6 sources)Obstructive sleep apnea syndrome; Translations: [Obstructive sleep apnea (adult) (pediatric)]05-97-2366OucrdjbPmnijauy codes; unclassified (4 sources)Sleep apnea, unspecified; Translations: [SLEEP APNEA UNSPECIFIED] Onset: 77-58-3697LohqraqKuxfncmh codes; unclassified (1 source)Sleep -25-9506GgglhkbJflnmdeq codes; unclassified (2 sources)Other specified postprocedural states; Translations: [Other specified postprocedural states]Onset: 24-59-1867YpjxgrwxFjxe and subcutaneous tissue infections (2 sources)Boil of back; Translations: [Furuncle of abdominal wall]04-03-2021 EpisodicSpondylosis; intervertebral disc disorders; other back problems (1 source)Degeneration of cervical intervertebral vsmq10-69-0724Drhvhxo Spondylosis; intervertebral disc disorders; other back problems (1 source)Low back ltxg01-34-3514ZlmctziqEohmtcmgptn injury; contusion (10 sources)Contusion of right knee, initial encounter; Translations: [Contusion of right knee, subsequent encounter]Onset: 04-17-2021 Resolved: 19-17-0580PxhntpamTrfcwoznxeds (1 source)Concussion with loss of consciousness status unknown, subsequent encounter; Translations: [Concussion with loss of consciousness status unknown, subsequent encounter]Onset: 37-79-1255Awijpbm tract infections (4 sources)Urinary tract infection, site not specified; Translations: [UTI SITE NOT SPECIFIED]Onset: 15-19-7318Xtvcvjpj Past or Other Problems Problem ClassificationProblemDateDocumented DateEpisodic/ChronicDeficiency and other anemia (1 source)Anemia, unspecified; Translations: [ANEMIA UNSPECIFIED]Onset: 23-65-6404BvuxkeuyGnddjvkh mellitus without complication (1 source)Other abnormal glucose; Translations: [OTHER ABNORMAL GLUCOSE]Onset: 06-12-2392UqmhmtnbYhgwgssur of teeth and jaw (1 source)Other specified disorders of teeth and supporting structures; Translations: [OTH SPEC DISORDERS TEETH SUPP STRCT]Onset: 57-90-1221Afustoxw Intracranial injury (6 sources)Concussion without loss of consciousness, initial encounter; Translations: [Unspecified intracranial injury without loss of consciousness, initial encounter]Onset: 35-79-3530PcnxtacdVfabtjgntecu breast conditions (4 sources)Disorder of breast, unspecified; Translations: [DISORDER OF BREAST UNSPECIFIED]Onset: 28-90-8076JkpckiahCtdrkiczili chest pain (11 sources)Other chest pain; Translations: [Chest pain]Onset: 08-13-2017 21-80-9959UsubjxrhYbcal aftercare (1 source)Other skilled nursing (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 therapy; Translations: [OTH [facility] CURRENT DRUG THERAPY]Onset: 65-61-0263UaoqtirbQpzru connective tissue disease (1 source)Pain in left arm; Translations: [PAIN IN LEFT ARM]Onset: 04-23-2022 EpisodicOther injuries and conditions due to external causes (2 sources)Unspecified injury of head, subsequent encounter; Translations: [Unspecified injury of head, subsequent encounter]Onset: 03-67-3715BlhofritKqgce injuries and conditions due to external causes (2 sources)Unspecified injury of head, initial encounter; Translations: [Unspecified injury of head, initial encounter]Onset: 12-52-3953ImmldsrpSqbuo non-traumatic joint disorders (6 sources)Pain in left knee; Translations: [PAIN IN LEFT KNEE]Onset: 01-31-2022 EpisodicOther screening for suspected conditions (not mental disorders or infectious disease) (1 source)Encounter for screening for malignant neoplasm of rectum; Translations: [ENC SCREEN MALIG NEOPLASM RECTUM]Onset: 04-39-1661Kwdvqkiq Residual codes; unclassified (1 source)Acquired absence of other specified parts of digestive tract; Translations: [ACQ ABSENCE OTH PART DIGESTV TRACT]Onset: 19-95-4574Rkvmttqx Sprains and strains (7 sources)Sprain of unspecified site of right knee, initial encounter; Translations: [Sprain of unspecified site of right knee, subsequent encounter] Onset: 09-18-2021 Resolved: 36-43-8916GdjxaaxaIefvekdzegou (1 source)Concussion with loss of consciousness status unknown, subsequent encounter; Translations: [Concussion with loss of consciousness status unknown, subsequent encounter]Onset: 04-17-2022 Results Test NameValueInterpretationReference RangeFacilityTriage Panel 12-13-2024U Benzodia ScrPositiveNormalMagruder HospitalComment on above:Result Comment: Positive Result confirmed by [facility] 12/13/2024 08:25:50 EDT Sent for confirmation on 11/16/24Performed By: #### [id number] #### [facility] (DEFAULT) [address] [place] [address] 24893Aplajs Panel 22-72-6322Vzvc Screen CompleteCollected NormalMagruder HospitalComment on above:Performed By: #### [id number] #### [facility] (DEFAULT) [address] [place] [address] 50897Trnesf Device ControlPassNormalMagruder HospitalComment on above:Performed By: #### [id number] #### [facility] (DEFAULT) [address] [place] [address] [id number] Amph ScrNegativeNormalMagruder HospitalComment on above: Performed By: #### [id number] #### [facility] (DEFAULT) [address] [place] [address] [id number] Lupe ScrNegativeNormalMagruder HospitalComment on above: Result Comment: Sent to [facility] for confirmationPerformed By: #### [id number] #### [facility] (DEFAULT) [address] [place] [address] [id number] Cannab ScrnNegativeNormalMagruder HospitalComment on above:Performed By: #### [id number] #### [facility] (DEFAULT) [address] [place] [address] [id number] Cocaine ScrnNegativeNormal>=0Magruder HospitalComment on above:Performed By: #### [id number] #### [facility] (DEFAULT) [address] [place] [address] [id number] Methamp ScrnNegativeNormalMagruder HospitalComment on above:Performed By: #### [id number] #### [facility] (DEFAULT) [address] [place] [address] [id number] Opiate ScrNegativeNoBarberton Citizens Hospital HospitalComment on above:Performed By: #### [id number] #### [facility] (DEFAULT) [address] [place] [address] [id number] Oxycod ScrNegativeUniversity Hospitals Ely[facility] Medical Center HospitalComment on above:Performed By: #### [id number] #### [facility] (DEFAULT) [address] [place] [address] [id number] Phencyclidine ScrNegativeNoBarberton Citizens Hospital HospitalComment on above:Performed By: #### [id number] #### [facility] (DEFAULT) [address] [place] [address] [id number] 21-01-9826Nkmpxkck report Cyto stain Doc (Cvx/Vag)NoteInvalid Interpretation [facility] HospitalComment on above:Result Comment: TESTS RESULT FLAG UNITS REF RANGE LAB Clinician Provided Cytology Information Source.............Endocervix No. of containers..01 ThinPrep Vial DIAGNOSIS: 01 NEGATIVE FOR INTRAEPITHELIAL LESION OR MALIGNANCY. Specimen adequacy: 01 Satisfactory for evaluation. Endocervical and/or squamous metaplastic cells (endocervical component) are present. Performed by: Catherine Beard Induction Heating Equipment Setter (ASCP) . 01 Note: Note 01 The Pap smear is a screening test designed to aid in the detection of premalignant and malignant conditions of the uterine cervix. It is not a diagnostic procedure and should not be used as the sole means of detecting cervical cancer. Both false-positive and false-negative reports do occur. Test Methodology: Note 01 This liquid based ThinPrep(R) pap test was screened with the use of an image guided system. FLAG LEGEND: L-Low Normal,H-High Normal,LL-Alert Low,HH-Alert High <-Panic Low,>-Panic High,A-Abnormal,AA-Critical Abnormal Performed at: [address] [id number] Carey Flores MD, Voinaokeh By: #### [id number] #### [facility] [address], [place] [address]KXE 16+18+31+33+35+39+45+51+52+56+58+59+66+68 DNA Probe+sig amp Ql (Cvx)NegativeInvalid Interpretation CodeNegativeMedina Hospital Comment on above:Result Comment: This nucleic acid amplification test detects fourteen high-risk HPV types (16,18,31,33,35,39,45,51,52,56,58,59,66,68) without differentiation. Performed at: [address] [id number] MD Sandra Patino Performed at: =G [facility] [id number] MD Sandra PatinoPerformed By: #### [id number] #### [facility] [address], [place] [address]VRP [id number] 15-11-7040Zlytsukirv TechniqueBRUSH-SPATULANormal Medina HospitalComment on above:Performed By: #### [id number] #### [facility] [address] [place], [place] [address]Xtsengcmnqzjg Body SiteENDOCERVIXNormalFisher Glasscock Medical CenterComment on above:Performed By: #### [id number] #### [facility] [address] [place] [id number] dictated a letter simply stating patient remains off work and will remain off for 1 month . This letter is for [employer] because her children gets medical benefits. Patient was sent the letter.[facility]36on 61-02-793487Jkyykvf states she received a note for work but she needs a note stating she is off work. Please email if MD writes she states it is for jobs [employer] family services and she states that is what they need.[facility]Follow-Upon 74-58-5081Pqlbuv-[id number] Nabila Jewell 1985 F Date Provider Department Center 03/04/2023 PASCUAL HOPKINS MP PHYS MED Medical [facility]avi No family history on file Level of Service:52464 [place] OFFICE/OUTPATIENT ESTABLISHED LOW MDM 20-29 MIN (GC) Reason for Visit and Comments: Concussion [591733] - bwcNormalProtestant Deaconess HospitalOffice Visiton 73-40-2373Xlzsxy-up [id number] Nabila Jewell 1985 [facility] Provider Department [place] 02/23/2023 JENNY MARAVILLA MP ORTHO MPORTHO No family history on file Level of Service:14627 RI POSTOP FOLLOW UP VISIT RELATED TO ORIGINAL PX (GC) Reason for Visit and Comments: Pain [136] Follow-up [607696][facility] Visiton 45-68-1201Kqsixs-up [id number] Nabila Jewell 1985 F Date Provider Department Center 01/12/2023 JENNY MARAVILLA MP ORTHO MPORTHO No family history on file Level of Service:08348 RI POSTOP FOLLOW UP VISIT RELATED TO ORIGINAL PX (GC) Reason for Visit and Comments: Post-op [483][facility] Onlyon 01-08[facility]2023 Orders [id number] Nabila Jewell 1985 F Date Provider Department Center 01/08/2023 SHRUTHI TORREZ MP ORTHO MPORTHO No family history on fileNormalUniversity of Baylor [facility] Lake PointeOPNOTEon 94-89-4086FIGEDXGOSF ARTHROSCOPY WITH PARTILA LATERAL MENISCECTOMY (L), CHONDROPLASTY (L) Operative Note Date: 01/01/2023 Location: [facility] OR Name: Nabila Jewell, : 1985, Diagnosis Pre-op Diagnosis * Discoid meniscus of left knee [Q68.6] Post-op Diagnosis * Discoid meniscus of left knee [Q68.6] Procedures KNEE ARTHROSCOPY WITH PARTILA LATERAL MENISCECTOMY 62309 - RI ARTHRS KNE SURG W/MENISCECTOMY MED/LAT W/SHVG CHONDROPLASTY Surgeons * Jenny Holley - Primary Procedure Summary Anesthesia: General ASA: III Estimated Blood Loss: 5 mL Total IV Fluids: mL Drains: * None in log * Staff: Athletic Instructor: Kristen Lai RN Scrub Person: Jordan Lucero [...] - hemodynamically stable. Condition: stable Jenny Holley CcauqwKnsyxlhurl of [facility]edo Medical CenterPOCT GLUCOSE METER UNSOLICITED RESULTSon 47-19-9641Temjhjc [Mass/Vol]93 mg/bPXcuqlz81-623 Protestant Deaconess HospitalComment on above:Order Comment: Waived Testing in the ED is performed under the ED CLIA certificate #[id number].Result Comment: ngrothaPerformed By: #### [id number] ####[facility] (JULEE)[address] [place], [place] [address]FMkp [id number] Of Present Illness Nabila Jewell is a [...] knee chondroplasty and saucerization of discoid lateral meniscusNormal [facility]1000006on [id number] to eat or drink after midnight STRIPE MARKER AND 24 HOUR CARE NO JEWELRY BRING INS AND ID Take the meds we spoke about w/a sip of water DOS: ALL NORMAL AM MEDS ARRIVE AT [facility] HospitalalUniCincinnati Children's Hospital Medical CenterDocumentationon 12-09-2022 [id number] Nabila Jewell 1985 F Date Provider Department Center 12/09/2022 Melvin-PARRISH MCDONOUGH MP DIETARY Medical Pavi Chart Close Cosign Required by: Samir Mendoza MD[189] No family history on fileNormalUniversity [facility]36on [id number] Becca from [place] calls to state the last note sent with the [employer] has a statement that patient can work 4 hours per day 20 hours per week but [employer] sent yesterday did not have any thing listed but patient states there were no changes and she is still to be off work. I pulled up [employer] sent in by signwriter and I had forgotten to check the no changes box. In same note it does state by MD patient is not working and will be evaluated upon next ov. I informed her of the error and she requested I resend with the no changes box checked. Form was reprinted and faxed back.[facility]36Patient calls to state her MCO is stating she will need [...] think so she will call the MCO back.NormalProtestant Deaconess HospitalTelephoneon [id number] Nabila Jewell 1985 F Date Provider Department Center 12/03/2022 PASCUAL HOPKINS MP PHYS MED Medical Pavi No family history on fileNormalUniversity of [facility] [id number]-[id number] Nabila Jewell 1985 Date Provider Department Center 12/01/2022 PASCUAL HOPKINS MP PHYS MED Medical Pavi No family history on file Level of Service:71238 [place] OFFICE/OUTPATIENT ESTABLISHED LOW MDM 20-29 MIN (GC) Reason for Visit and Comments: headaches [Other] - BWCNormalUnMercy Health Springfield [facility] [id number]-[id number] Nabila Jewell 1985 F Date Provider Department Center 09/29/2022 PASCUAL HOPKINS MP PHYS MED Medical Pavi No family history on file Level of Service:68932 RI OFFICE/OUTPATIENT ESTABLISHED LOW MDM 20-29 MIN Reason for Visit and Comments: headaches [Other] Leg Pain [520908] - RightNormalUniCincinnati Children's Hospital Medical CenterOrders Onlyon 31-69-2519Dccvzx [id number] Taj Jewellley Vilma 1985 F Date Provider Department Center 09/29/2022 275-PASCUAL URIBE MP PHYS MED Medical Pavi No family history on fileNormalUniCincinnati Children's Hospital Medical CenterOffice Visiton 79-70-6215Qrulcz-up [id number] FantaNabila Esparza 1985 F Date Provider Department Center 09/15/2022 443-JENNY HOLLEY MP ORTHO MPORTHO No family history on file Level of Service:51633 RI OFFICE/OUTPATIENT ESTABLISHED MOD MDM 30-39 MIN (57) Reason for Visit and Comments: Pain [136]NormalUnMiddletown HospitalCULTURE URINEon 08-22-2022 CULTURE URINECulture Observations: MODERATE GROWTH OF MIXED GENITAL GISELLE. NO POTENTIAL PATHOGENS SEEN.NormalThe [facility] Memorial HospitalComment on above:Performed By: #### TSH, LIPID, CMP, URIC, T7, CRP #### [facility] [address] [place] [address] Dr. Walker Han RANDOM W/MICROSCOPICon 38-10-2207OQPZDSNGQYCEZBQAVmjrxemkWPGU SEENBlanchard Valley Health System Bluffton HospitalComment on above:Performed By: #### UAMIC #### [facility] [address] [address] [address] Walker Ann Ql (U)NegativeNormalNEGATIVEThe [facility] Comment on above:Performed By: #### UAMIC #### [facility] [address] [address] [address] Walker Santillan SEENNormalNONE SEENBlanchard Valley Health System Bluffton HospitalComment on above:Performed By: #### UAMIC #### [facility] [address] [address] [address] Walker Mcleod (U)CLEARNormalCLEARThe [facility] HospitalComment on above: Performed By: #### UAMIC #### [facility] [address] [address] [address] Walker Navarro (U)YELLOWNormalYELLOWBlanchard Valley Health System Bluffton HospitalComment on above: Performed By: #### UAMIC #### [facility] [address] [address] [address] Walker GabrielCrystals LM Nom (Urine sed)NONE SEENNormalNONE SEENBlanchard Valley Health System Bluffton HospitalComment on above:Performed By: #### UAMIC #### [facility] [address] [address] [address] Cardoso ChangEpithelial cells LM Ql (Urine sed)FEWAbnormalNONE SEEN /RAREBlanchard Valley Health System Bluffton HospitalCommary free bed rehabilitation hospital on above:Performed By: #### UAMIC #### [facility] [address] [place] [address] Dr. Walker GabrielGlucose Ql (U)NegativeNormalNEGATIVEBlanchard Valley Health System Bluffton HospitalComment on above:Performed By: #### UAMIC #### [facility] [address] [address] [address] Walker GabrielHemoglobin Ql (U)TRACE-LYSEDAbnormalNEGATIVEOhiohealth Grove City Methodist Hospital on above:Performed By: #### UAMIC #### [facility] [address] [address] [address] Walker GabrielKetones Ql (U)NegativeNormalNEGATIVEBlanchard Valley Health System Bluffton HospitalComment on above:Performed By: #### UAMIC #### [facility] [address] [address] [address] Walker GabrielLEUKOCYTESNegativeNormalNEGATIVEBlanchard Valley Health System Bluffton HospitalCommary free bed rehabilitation hospital on above:Performed By: #### UAMIC #### [facility] [address] [address] [address] Walker GabrielMUCOUSNONE SEENNormalNONE SEENBlanchard Valley Health System Bluffton HospitalComment on above:Performed By: #### UAMIC #### [facility] [address] [address] [address] Walker Valentine Ql (U)NegativeNormalNEGATIVEThe [facility] HospitalComment on above:Performed By: #### UAMIC #### [facility] [address] [place] [address] Dr. Walker GabrielpH (U)6.0 [pH]Normal5-9The [facility] HospitalComment on above: Performed By: #### UAMIC #### [facility] [address] [place] [address] Dr. Walker GabrielRsaibXAX4-7Uegwzn0-1Wfs [facility] HospitalComment on above:Performed By: #### UAMIC #### [facility] [address] [place] [address] Dr. Walker GabrielSPEC GRAVITY>=1.472Zodudkwu3.005-<=1.025The [facility] Comment on above:Performed By: #### UAMIC #### [facility] [address] [place] [address] Dr. Walker GabrielUA PROTEINNegativeNormalNEGATIVE/ TRACEThe [facility] Comment on above:Performed By: #### UAMIC #### [facility] [address] [place] [address] Dr. Walker Augustin Qn (U)0.2 {Natalie'U}/dLNormal0.2 - 1.0The [facility] HospitalComment on above:Performed By: #### UAMIC #### [facility] [address] [place] [address] Dr. Walker GabrielWBC2-5AbnormalNONE SEENThe [facility] HospitalComment on above: Performed By: #### UAMIC #### [facility] [address] [place] [address] Dr. Walker GabrielXR KUB 1 VIEWon 66-54-4123TG KUB 1 VIEWEXAMINATION: XR KUB 1 VIEW HISTORY: Left flank [...] Electronically authenticated by: PASCUAL GAMBLE Date: 2022-08-22 12:42[facility] Medical CenterFoow-Upon [id number]-[id number] Nabila Jewell 1985 Provider Department Center 08/21/2022 Lupe-CAROLE PONCE MP ORTHO MPORTHO No family history on file Level of Service:07460 RI OFFICE/OUTPATIENT ESTABLISHED LOW MDM 20-29 MIN Reason for Visit and Comments: Pain [136][facility]Clinical Supporton 08-06-2022 Clinical [id number] Nabila Jewell 1985 Provider Department [place] 08/06/2022 PARRISH STOVER MP DIETARY Medical Pavi Chart Close Cosign Required by: Samir Mendoza MD[189] No family history on file Reason for Visit and Comments: Obesity [[id number]] Hypertension [176896][facility] PrebleErroneous Encounteron 30-83-2844Zctyoumzh [id number] Nabila Jewell 1985 Provider Department [place] 08/06/2022 PARRISH STOVER MP DIETARY Medical Pavi No family history on file Reason for Visit and Comments: Error (VOID this visit) [77][facility] Documentationon [id number] Nabila Jewell 1985 Provider Department [place] 07/31/2022 PARRISH STOVER [facility] NUTRN MD Medical C Chart Close Cosign Required by: Samir Mendoza MD[[id number]] No family history on fileNormalUniversity of [facility] [id number] Nabila Jewell 1985 Provider Department [place] 07/02/2022 PASCUAL HOPKINS MP PHYS MED Medical Pavi No family history on file Level of Service:59640 RI OFFICE/OUTPATIENT ESTABLISHED MOD MDM 30-39 MIN Reason for Visit and Comments: Headache [52] Leg Pain [995034] - Right BWCNormalProtestant Deaconess HospitalRefillon [id number] FantaNabila M 1985 F Date Provider Department Center 05/28/2022 PASCUAL HOPKINS MP PHYS MED Medical Pavi No family history on file Reason for Visit and Comments: Med Refill [442720][facility]bleFohorizon [facility] hospital-[facility] 29-18-4819Ryojgg-[id number] Taj Jewellronit Esparza 1985 Date Provider Department [place] 05/15/2022 RUFINO DICKERSON MP ORTHO MPORTHO Chart Close Cosign Required by: Rufino Perdomo MD[[id number]] No family history on file Level of Service:37865 RI OFFICE/OUTPATIENT ESTABLISHED LOW MDM 20-29 MIN (GC) Reason for Visit and Comments: Follow-up [771879] - Follow up on left knee pain.[facility]bleFohorizon specialty hospital-[facility] 84-94-3380Uaximu-[id number] Nabila Jewell Vilma 1985 Provider Department [place] 04/30/2022 PASCUAL HOPKINS MP PHYS MED Medical Pavi No family history on file Level of Service:51536 RI OFFICE/OUTPATIENT ESTABLISHED MOD MDM 30-39 MIN (GC) Reason for Visit and Comments: headaches [Other][facility]bleANA by IFAon 46-22-7634Bzstozprioz Antibodies, IFANegativeNormalThMansfield HospitalComment on above:Result Comment: Negative <1:80 Borderline 1:80 Positive >1:80 ICAP nomenclature: AC-0 For more information about Hep-2 cell patterns use ANApatterns.org, the official website for the International Consensus on Antinuclear Antibody (DARIO) Patterns (ICAP).Performed By: #### TSH, LIPID, CMP, URIC, T7, CRP #### [facility] [address] [place] [address] Dr. Walker Ramos PROFILE Aon 67-32-8838Bkdz-DNA (DS) Ab Qn3 IU/mLNormal0-9The [facility] HospitalComment on above:Result Comment: Negative <5 Equivocal 5 - 9 Positive >9Performed By: #### SLEA #### [facility] [address] [place] [address] Dr. Walker GabrielAntichromatin Antibodies<0.0Pdxdsj8.0-0.9The [facility] Comment on above:Performed By: #### SLEA #### [facility] [address] [place] [address] Dr. Walker Hennessy Latex Turbid.<10.0Normal<14.0[facility] Bluffton HospitalComment on above:Performed By: #### SLEA #### [facility] [address] [place] [address] Dr. Walker Em Antibodies<0.6Sghlqr1.0-0.9The [facility] HospitalComment on above:Performed By: #### SLEA #### [facility] [address] [place] [address] Dr. Walker Villagran Anti-SS-A<0.4Srfrep3.0-0.9The [facility] HospitalComment on above:Performed By: #### SLEA #### [facility] [address] [place] [address] Dr. Walker Villagran Anti-SS-B<0.6Nxgjpa9.0-0.9The [facility] HospitalComment on above:Performed By: #### SLEA #### [facility] [address] [place] [address] Dr. Walker Tidwell Antibodies<0.3Vzsuch0.0-0.9The [facility] HospitalComment on above:Performed By: #### SLEA #### [facility] [address] [place] [address] Dr. Walker GabrielANTISTREPTOLYSIN O AB (ASO)on 60-43-2068Mpptjaobplptpomn O Ab 227.2 IU/mLCritically high0.0-200.0[facility] Bluffton HospitalComment on above: Performed By: #### TSH, LIPID, CMP, URIC, T7, CRP #### [facility] [address] [place] [address] Dr. Walker GabrielINSULINon 11-87-7185Xholfep64.8 uIU/mLNormal2.6-24.9The [facility] HospitalComment on above:Performed By: #### TSH, LIPID, CMP, URIC, T7, CRP #### [facility] [address] [place] [address] Dr. Walker Hsu AUTO DIFFon 26-82-5513XSGI #0.0 103/ulNormal0.0-0.1The [facility] HospitalComment on above:Performed By: #### TSH, LIPID, CMP, URIC, T7, CRP #### [facility] [address] [place] [address] Dr. Walker GabrielBasophils/100 WBC (Bld)0.4 %Normal0.2-2.0The [facility] Comment on above:Performed By: #### TSH, LIPID, CMP, URIC, T7, CRP #### [facility] [address] [place] [address] Dr. Walker Vaughan #0.1 103/ulNormal0.0-0.7The [facility] HospitalComment on above: Performed By: #### TSH, LIPID, CMP, URIC, T7, CRP #### [facility] [address] [place] [address] Dr. Walker Fregosoosinophils/100 WBC (Bld)1.4 %Normal0.9-7.0The [facility] Comment on above:Performed By: #### TSH, LIPID, CMP, URIC, T7, CRP #### [facility] [address] [place] [address] Dr. Walker Fregosorythrocyte distribution width (RBC) [Ratio]12.8 %Iwykrc28.0-15.0 The [facility] HospitalComment on above:Performed By: #### TSH, LIPID, CMP, URIC, T7, CRP #### [facility] [address] [place] [address] Dr. Walker GabrielHematocrit (Bld) [Volume fraction]38.1 %Uzqybf62.0-48.0The [facility] Institutement on above:Performed By: #### TSH, LIPID, CMP, URIC, T7, CRP #### [facility] [address] [place] [address] Dr. Walker GabrielHemoglobin (Bld) [Mass/Vol]12.3 g/sCWwuipy98.0-16.0The [facility]utement on above:Performed By: #### TSH, LIPID, CMP, URIC, T7, CRP #### [facility] [address] [place] [address] Dr. Walker Cannon #0.03 10e3/ulNormal0.00-0.03The [facility] on above:Performed By: #### TSH, LIPID, CMP, URIC, T7, CRP #### [facility] [address] [place] [address] Dr. Walker Cannon %0.4 %Normal0.0-0.5The [facility] HospitalCommary free bed rehabilitation hospital on above: Performed By: #### TSH, LIPID, CMP, URIC, T7, CRP #### [facility] [address] [place] [address] Dr. Walker Gonzalez #2.6 103/ulNormal1.2-3.8The [facility] on above:Performed By: #### TSH, LIPID, CMP, URIC, T7, CRP #### [facility] [address] [place] [address] Dr. Walker Bynumhocytes/100 WBC (Bld)35.5 %Dwkdqj92.5-60.0The [facility] on above:Performed By: #### TSH, LIPID, CMP, URIC, T7, CRP #### [facility] [address] [place] [address] Dr. Walker StricklandUAL DIFF REQNONormalThe [facility] Memorial HospitalComment on above: Performed By: #### TSH, LIPID, CMP, URIC, T7, CRP #### [facility] [address] [place] [address] Dr. Walker Gomez (RBC) [Entitic mass]28.7 ouPgdlbf54.7-34.0The [facility] HospitalComment on above:Performed By: #### TSH, LIPID, CMP, URIC, T7, CRP #### [facility] [address] [place] [address] Dr. Walker Cho (RBC) [Mass/Vol]32.3 g/aBMcihqr72.9-35.2The [facility] HospitalComment on above:Performed By: #### TSH, LIPID, CMP, URIC, T7, CRP #### [facility] [address] [place] [address] Dr. Walker Draper (RBC) [Entitic vol]88.8 cQEhgspe81.0-99.0The [facility] HospitalComment on above:Performed By: #### TSH, LIPID, CMP, URIC, T7, CRP #### [facility] [address] [place] [address] Dr. Walker Painting #0.4 103/ulNormal0.3-0.8The [facility] HospitalComment on above:Performed By: #### TSH, LIPID, CMP, URIC, T7, CRP #### [facility] [address] [place] [address] Dr. Walker Hopkinsocytes/100 WBC (Bld)6.1 %Normal1.7-12.0[facility] Comment on above:Performed By: #### TSH, LIPID, CMP, URIC, T7, CRP #### [facility] [address] [place] [address] Dr. Walker Maher #4.0 103/ulNormal1.4-6.5The [facility] HospitalComment on above:Performed By: #### TSH, LIPID, CMP, URIC, T7, CRP #### [facility] [address] [place] [address] Dr. Walker Henryutrophils/100 WBC (Bld)56.2 %Qsepec45.0-75.0The [facility] HospitalComment on above:Performed By: #### TSH, LIPID, CMP, URIC, T7, CRP #### [facility] [address] [place] [address] Dr. Walker Foss mean volume (Bld) [Entitic vol]8.3 fLCritically low 9.5-13.5The [facility] HospitalComment on above:Performed By: #### TSH, LIPID, CMP, URIC, T7, CRP #### [facility] [address] [place] [address] Dr. Walker GabrielPLT328 103/mhQqbwhh993-344Brs [facility] HospitalComment on above: Performed By: #### TSH, LIPID, CMP, URIC, T7, CRP #### [facility] [address] [place] [address] Dr. Walker GabrielRBC4.29 106/ulNormal4.20-5.40The [facility] HospitalComment on above:Performed By: #### TSH, LIPID, CMP, URIC, T7, CRP #### [facility] [address] [place] [address] Dr. Walker GabrielWBC7.2 103/ulNormal4.0-11.0The [facility] HospitalComment on above: Performed By: #### TSH, LIPID, CMP, URIC, T7, CRP #### [facility] [address] [place] [address] Dr. Walker Gama 79-42-2843KCA4.3 mg/dLCritically high<=1.0The [facility] on above:Performed By: #### TSH, LIPID, CMP, URIC, T7, CRP #### [facility] [address] [place] [address] Dr. Walker Aleman THYROXINE INDEX T7on 40-14-9485KSM6.86Hsvtns6.30-4.50The [facility] HospitalComment on above:Performed By: #### TSH, LIPID, CMP, URIC, T7, CRP #### [facility] [address] [place] [address] Dr. Walker GabrielT3U31.0 %Lfsxha08.0-39.0The [facility] HospitalComment on above: Performed By: #### TSH, LIPID, CMP, URIC, T7, CRP #### [facility] [address] [place] [address] Dr. Walker GabrielT4 [Mass/Vol]9.40 ug/dLNormal4.80-13.90The [facility] Comment on above:Performed By: #### TSH, LIPID, CMP, URIC, T7, CRP #### [facility] [address] [address] [address] Walker GabrielGLYCOHEMOGLOBIN A1Con 74-92-5590MMQ RECOMMENDATIONSEE BELOWChapin The [facility] Memorial HospitalComment on above:Result Comment: ADA RECOMMENDED LIMIT 4.0 - 6.0 ADA THERAPEUTIC TARGET < 7.0 ACTION SUGGESTED > 7.0Performed By: #### TSH, LIPID, CMP, URIC, T7, CRP #### [facility] [address] [address] [address] Walker GabrielGlucose [Mass/Vol]114 mg/dLNoSumma Health Akron CampusComment on above:Performed By: #### TSH, LIPID, CMP, URIC, T7, CRP #### [facility] [address] [address] [address] Walker GabrielHbA1c (Bld) [Mass fraction]5.6 %Normal4.5-6.2The [facility] HospitalComment on above:Performed By: #### TSH, LIPID, CMP, URIC, T7, CRP #### [facility] [address] [address] [address] Walker Garcia 37-83-4715Rfsb [Mass/Vol]34.0 ug/dLCritically low 50.0-170.0The [facility] HospitalComment on above:Performed By: #### IRON #### [facility] [address] [address] [address] Walker GabrielLIPID PROFILEon 33-00-7452KQOP-HDL RATIO NORMSEE [facility] HospitalCommary free bed rehabilitation hospital on above:Result Comment: 3.3 - 4.4 LOW RISK 4.4 - 7.1 AVERAGE RISK 7.1 - 11.0 MODERATE RISK >11.0 HIGH RISKPerformed By: #### TSH, LIPID, CMP, URIC, T7, CRP #### [facility] [address] [address] [address] Walker GabrielCholesterol [Mass/Vol]174 mg/dLNormal<=200The [facility] Comment on above:Performed By: #### TSH, LIPID, CMP, URIC, T7, CRP #### [facility] [address] [address] [address] Walker GabrielCholesterol in HDL [Mass/Vol]70 mg/dLCritically xlbc83-08Mqx [facility] HospitalComment on above:Performed By: #### TSH, LIPID, CMP, URIC, T7, CRP #### [facility] [address] [address] [address] Walker GabrielCholesterol in LDL [Mass/Vol]92.8 mg/dLNoSumma Health Akron CampusComment on above:Performed By: #### TSH, LIPID, CMP, URIC, T7, CRP #### [facility] [address] [place] [address] Dr. Walker Berryesterfabiola.total/Cholesterol in HDL [Mass ratio]2.5 {ratio} NormalThe [facility] HospitalComment on above:Performed By: #### TSH, LIPID, CMP, URIC, T7, CRP #### [facility] [address] [address] [address] Walker Bautista NORMAL> or = 60 mg/dl - LOW CARDIOVASCULAR RISK <40 mg/dl - HIGH CARDIOVASCULAR RISKFisher-Titus Medical CenterComment on above:Performed By: #### TSH, LIPID, CMP, URIC, T7, CRP #### [facility] [address] [address] [address] Walker GabrielLDL CALC NORMALSEE BELOWNoSumma Health Akron CampusComment on above:Result Comment: <100 mg/dl OPTIMAL 100 - 129 mg/dl NEAR OR ABOVE OPTIMAL 130 - 159 mg/dl BORDERLINE HIGH 160 - 189 mg/dl HIGH >190 mg/dl VERY HIGH Performed By: #### TSH, LIPID, CMP, URIC, T7, CRP #### [facility] [address] [address] [address] Walker GabrielTriglyceride [Mass/Vol]56 mg/dLNormal<=150The [facility] Comment on above:Performed By: #### TSH, LIPID, CMP, URIC, T7, CRP #### [facility] [address] [address] [address] Walker MacLDL CALC11.2 mg/dLNormalThe [facility] HospitalComment on above: Performed By: #### TSH, LIPID, CMP, URIC, T7, CRP #### [facility] [address] [address] [address] Walker Kaufman 14(COMP METB)on 57-65-8105Zytdbxh [Mass/Vol]3.0 g/dL Critically low3.4-5.0The [facility] HospitalComment on above:Performed By: #### TSH, LIPID, CMP, URIC, T7, CRP #### [facility] [address] [place] [address] Dr. Walker GabrielAlbumin/Globulin [Mass ratio]0.6 {ratio}NormalThe [facility] HospitalComment on above:Performed By: #### TSH, LIPID, CMP, URIC, T7, CRP #### [facility] [address] [place] [address] Dr. Walker Dutton [Catalytic activity/Vol]102 U/NCvxjld75-177Wuf [facility] on above:Performed By: #### TSH, LIPID, CMP, URIC, T7, CRP #### [facility] [address] [place] [address] Dr. Walker Vela [Catalytic activity/Vol]19 U/QWmbjiu04-97Nbr [facility] on above:Performed By: #### TSH, LIPID, CMP, URIC, T7, CRP #### [facility] [address] [place] [address] Dr. Walker Christianson gap [Moles/Vol]7.9 mmol/LNormalThe [facility] Institutement on above:Performed By: #### TSH, LIPID, CMP, URIC, T7, CRP #### [facility] [address] [place] [address] Dr. Walker Fang [Catalytic activity/Vol]12 U/LCritically kwb63-59Ggo [facility] HospitalComment on above:Performed By: #### TSH, LIPID, CMP, URIC, T7, CRP #### [facility] [address] [address] [address] Walker GabrielBilirubin [Mass/Vol]0.1 mg/dLCritically low0.2-1.0The [facility] HospitalComment on above:Performed By: #### TSH, LIPID, CMP, URIC, T7, CRP #### [facility] [address] [address] [address] Walker GabrielCalcium [Mass/Vol]8.9 mg/dLNormal8.5-10.1The [facility] Comment on above:Performed By: #### TSH, LIPID, CMP, URIC, T7, CRP #### [facility] [address] [place] [address] Dr. Walker GabrielChloride [Moles/Vol]103 mmol/QJjvsev60-267Nfn [facility] Comment on above:Performed By: #### TSH, LIPID, CMP, URIC, T7, CRP #### [facility] [address] [address] [address] Walker GabrielCO2 [Moles/Vol]28.4 mmol/IPjibwv32.0-32.0[facility] Comment on above:Performed By: #### TSH, LIPID, CMP, URIC, T7, CRP #### [facility] [address] [place] [address] Dr. Walker GabrielCreatinine [Mass/Vol]0.91 mg/dLNormal0.55-1.02The [facility]ement on above:Performed By: #### TSH, LIPID, CMP, URIC, T7, CRP #### [facility] [address] [address] [address] Walker FregosoGFR-AF MONGOLIAN>60Normal>=60[facility] on above:Performed By: #### TSH, LIPID, CMP, URIC, T7, CRP #### [facility] [address] [address] [address] Walker FregosoGFR-NON AF MONGOLIAN>60Normal>=60The [facility] HospitalComment on above:Performed By: #### TSH, LIPID, CMP, URIC, T7, CRP #### [facility] [address] [address] [address] Walker GabrielGlobulin (S) [Mass/Vol]4.7 g/dLNormalThMansfield HospitalComment on above:Performed By: #### TSH, LIPID, CMP, URIC, T7, CRP #### [facility] [address] [place] [address] Dr. Walker GabrielGlucose [Mass/Vol]87 mg/mIColssr01-122[facility] Comment on above:Performed By: #### TSH, LIPID, CMP, URIC, T7, CRP #### [facility] [address] [place] [address] Dr. Walker GabrielPotassium [Moles/Vol]4.3 mmol/LNormal3.5-5.1[facility] Comment on above:Performed By: #### TSH, LIPID, CMP, URIC, T7, CRP #### [facility] [address] [place] [address] Dr. Walker GabrielProtein [Mass/Vol]7.7 g/dLNormal6.4-8.2[facility] Comment on above:Performed By: #### TSH, LIPID, CMP, URIC, T7, CRP #### [facility] [address] [place] [address] Dr. Walker GabrielSodium [Moles/Vol]135 mmol/LCritically hwo268-679Gtv [facility] HospitalComment on above:Performed By: #### TSH, LIPID, CMP, URIC, T7, CRP #### [facility] [address] [place] [address] Dr. Walker GabrielUrea nitrogen [Mass/Vol]21.0 mg/dLCritically high7.0-18.0The [facility] HospitalComment on above:Performed By: #### TSH, LIPID, CMP, URIC, T7, CRP #### [facility] [address] [place] [address] Dr. Walker GabrielUrea nitrogen/Creatinine [Mass ratio]23.1 mg/mgNormalThe Langlois HospitalComment on above:Performed By: #### TSH, LIPID, CMP, URIC, T7, CRP #### [facility] [address] [place] [address] Dr. Walker Carrion 50-84-7013KCJ0.570 uIU/mLNormal0.358-3.740The [facility] HospitalComment on above:Performed By: #### TSH, LIPID, CMP, URIC, T7, CRP #### [facility] [address] [address] [address] Walker GabrielURIC ACID SERUMon 41-12-6251Wlwtj [Mass/Vol]5.7 mg/dLNormal 2.6-6.0The [facility] HospitalComment on above:Performed By: #### TSH, LIPID, CMP, URIC, T7, CRP #### [facility] [address] [place] [address] Dr. Walker GabrielUS VENOUS DOPPLER L Candelaria 40-57-9151UW VENOUS DOPPLER L ARM EXAMINATION: US VENOUS [...] Electronically authenticated by: JENNY ARIAS Date: 2022-04-18 18:43[facility] CenterClinical Supporton 12-97-7609Wqezpntk [id number] Nabila Jewell 1985 Provider Department Center 04/17/[address] [facility] Pavi No family history on file Reason for Visit and Comments: Worker's Compensation [732] Follow-up [679363] Concussion [040539]NormalProtestant Deaconess HospitalFollow-Upon [id number] Nabila Jewell 1985 Provider Department Center 04/03/2022 260-RUFINO PERDOMO MP ORTHO MPORTHO Chart Close Cosign Required by: Rufino Perdomo MD[[id number]] No family history on file Level of Service:64363 RI OFFICE/OUTPATIENT ESTABLISHED LOW MDM 20-29 MIN (GC) Reason for Visit and Comments: Pain [136] Edema [[id number]] Follow-up [439331]NormalProtestant Deaconess HospitalErroneous Encounteron 77-19-0053Tzuvtdxxv [id number] Nabila Jewell 1985 Provider Department Center 03/31/2022 5732-LINDA TOPETE MP REHAB PSY Medical Pavi No family history on file Reason for Visit and Comments: Error (VOID this visit) [77][facility] PrebleCNOVon 70-82-1467TGNZPademb Visit (NMUAMH) FANTA,NABILA Vilma ([id number]) 1985 Time Provider Department 02/03/22 11:00 AM CHAS ROMERO NMUA During your visit today, we recorded the following information about you: Pulse Blood pressure Weight Height 66/minute 117/84 122.7 kg 1.549 m Chas Romero DO 02/03/2022 11:27 AM Signed [facility] Follow up Visit SERVICE DATE: 02/03/2022 PCP: Smiley Urias MD [address] [place] [address] Reason for Evaluation: Consultation requested by Self for an opinion regarding right leg weakness Family/Friend accompanying the patient today: none HPI: This is Ms. Nabila Jewell, a 36 year old female who presents to the [facility] with the chief complaint above. 02/03/2022: [...] get up after this. She went to [facility] in [place]. She was evaluated and did testing and [...] ptosis CN VIII: He (more content not included)...NormalMercy Health Fairfield HospitalCNPNon 49-18-6183GQUNSmbgfjgyk (NEURST) NABILA JEWELL ([id number]) 1985 F Date Time Provider Department 01/30/22 [...] 05/18/2015 Encounter Status:Closed by CHAS ROMERO on 01/30/22[facility]I K[facility] WO CONon 15-90-4554TBY KNEE LT WO CONHISTORY: Left knee pain. MRI KNEE LT WO [...] Small joint effusion. Electronically authenticated by: SMILEY READER Date: 2022-01-28 12:18[facility] Medical CenterEM(NEURO/NI)on 91-16-9706Mpyxfbtmp ClinicMG MAMM DIAGNOSTIC 3D GREGORY CADon 29-61-0751ZJ MAMM DIAGNOSTIC 3D GREGORY CADPatient: NABILA JEWELL Exam Date: 01/22/2022 : 1985 Gender:F Ordering : DR SMILEY URIAS . Admission #: [id number] Family : Order #: [id number] CLICK HERE TO VIEW EXAM RADIOLOGY REPORT [...] Treatments None Family Cancers None LOCATION: [facility] BREAST COMPOSITION: Scattered areas fibroglandular density. [...] by: Pascual Gamble M.D. on 01/22/2022 at 15:30[facility] 47-80-2008HBDVWzkswjpwj (NENMMN) NABILA JEWELL ([id number]) 1985 F Date Time Provider Department 12/06/21 CHAS ROMERO NEPRINCESSMN During your visit today, we recorded the [...] Fully Assessed Reason for Visit: Insurance Authorization [[id number]] Prescriptions as of 12/08/2021 - potassium chloride [...] 05/18/2015 Encounter Status:Closed by SKY RAPP on 12/06/21[facility] 84-18-5755CELQXehhdxoyl ([facility]) NABILA JEWELL ([id number]) 1985 F Date Time Provider Department 11/15/21 CHAS ROMERO [facility] During your visit today, we recorded the following information about you: Rosana Ann Pss 11/15/2021 10:02 AM Addendum Pt requesting Dr. Romero send in C9 to [employer] for EMG. Jaxon phone [phone] ext [phone] [facility] PLEASE FAX TO:[phone] Also needs this faxed to attorney [place], [place] [employer] and [employer] [facility] Pt will call back [...] 05/18/2015 Encounter Status:Closed by ROSANA VALVERDE on 04/03/22[facility] 55-41-4405XNYDPomrgn Visit (NMUA) NABILA JEWELL ([id number]) 1985 F Date Time Provider Department 11/12/21 2:00 PM CHAS ROMERO [facility] During your visit today, we recorded the following information about you: Pulse Blood pressure Weight Height 69/minute 120/82 118.6 kg 1.549 m Chas Romero DO 11/12/2021 2:58 PM Signed Neuromuscular Clinic New Patient Visit SERVICE DATE: 11/12/2021 PCP: Smiley Urias MD [address] [place] [address] Reason for Evaluation: Consultation requested by Self for an opinion regarding right leg weakness Family/Friend accompanying the patient today: none HPI: This is Ms. Nabila Jewell, a 36 year old female who presents to the [facility] with the chief complaint above. She had an injury at work (March 2021)-she fell and hit her head on a prep table and fell onto her knee. She had difficulty moving to get up after this. She went to [facility] in [place]. She was evaluated and did testing and [...] Finger abduction - FDI (more content not included)...NormalMercy Health Fairfield HospitalCNPNon 47-18-6608UGOALjxzklxtt (NENMMN) NABILA JEWELL ([id number]) 1985 F Date Time Provider Department 10/22/21 CHAS ROMEROMN During your visit today, we recorded the [...] 150 mg by mouth twice daily. - Irbesartan-Hydrochlorothiazide 300-12.5 mg per tablet Take 1 tablet [...] 05/18/2015 Encounter Status:Closed by SKY RAPP on 10/22/21NoSouthwest General Health CenterCARDIAC MACIE 3-6on 07-79-1005VK [Catalytic activity/Vol]135 U/LNormal 30-135[facility] HospitalComment on above:Performed By: #### CMREP #### [facility] [address] [place] [address] Dr. Walker Burger.MB [Mass/Vol]0.84 ng/mLNormal<=2.37[facility] Comment on above:Performed By: #### CMREP #### [facility] [address] [place] [address] Dr. Walker FriedmanOP8.5 pg/mLNormal4.0-35.5ThMansfield HospitalComment on above:Result Comment: CUT-OFF POINTS HAVE BEEN ESTABLISHED BASED ON THE FOURTH UNIVERSAL DEFINITIONS OF MYOCARDIAL INFARCTION. THE UPPER REFERENCE LIMIT (URL) OF TROPONIN, DEFINED THE 99TH PERCENTILE OF cTnI DISTRIBUTION IN A REFERENCE POPULATION, HAS BEEN CONFIRMED THE DECISION THRESHOLD FOR ID DIAGNOSIS.Performed By: #### CMREP #### [facility] [address] [place] [address] Dr. Walker Glez MACIE ADMITon 10-14-7763HG [Catalytic activity/Vol]114 U/L Hdykok75-942BitBlanchard Valley Health System Bluffton HospitalComment on above:Performed By: #### TSH, LIPID, CMP, URIC, T7, CRP #### [facility] [address] [place] [address] Dr. Walker Burger.MB [Mass/Vol]0.71 ng/mLNormal<=2.37[facility] Comment on above:Performed By: #### TSH, LIPID, CMP, URIC, T7, CRP #### [facility] [address] [place] [address] Dr. Walker FriedmanOP6.1 pg/mLNormal4.0-35.5ThUniversity Hospitals [facility]ar[facility] on above:Result Comment: CUT-OFF POINTS HAVE BEEN ESTABLISHED BASED ON THE FOURTH UNIVERSAL DEFINITIONS OF MYOCARDIAL INFARCTION. THE UPPER REFERENCE LIMIT (URL) OF TROPONIN, DEFINED THE 99TH PERCENTILE OF cTnI DISTRIBUTION IN A REFERENCE POPULATION, HAS BEEN CONFIRMED THE DECISION THRESHOLD FOR ID DIAGNOSIS.Performed By: #### TSH, LIPID, CMP, URIC, T7, CRP #### [facility] [address] [place] [address] Dr. Walker DoradoO43.0 ng/mLNormal<=61.5The [facility] HospitalComment on above: Performed By: #### TSH, LIPID, CMP, URIC, T7, CRP #### [facility] [address] [place] [address] Dr. Walker Hsu AUTO DIFFon 52-73-1923ROHL #0.0 103/ulNormal0.0-0.1The [facility] HospitalComment on above:Performed By: #### TSH, LIPID, CMP, URIC, T7, CRP #### [facility] [address] [place] [address] Dr. Walker GabrielBasophils/100 WBC (Bld)0.5 %Normal0.2-2.0The [facility] Comment on above:Performed By: #### TSH, LIPID, CMP, URIC, T7, CRP #### [facility] [address] [place] [address] Dr. Walker Vaughan #0.0 103/ulNormal0.0-0.7The [facility]ement on above: Performed By: #### TSH, LIPID, CMP, URIC, T7, CRP #### [facility] [address] [place] [address] Dr. Walker Fregosoosinophils/100 WBC (Bld)0.1 %Critically low0.9-7.0[facility] on above:Performed By: #### TSH, LIPID, CMP, URIC, T7, CRP #### [facility] [address] [place] [address] Dr. Walker Fregosorythrocyte distribution width (RBC) [Ratio]12.3 %Jzdjex97.0-15.0 The [facility] HospitalComment on above:Performed By: #### TSH, LIPID, CMP, URIC, T7, CRP #### [facility] [address] [place] [address] Dr. Walker GabrielHematocrit (Bld) [Volume fraction]41.4 %Zpkmqi41.0-48.0The [facility] HospitalComment on above:Performed By: #### TSH, LIPID, CMP, URIC, T7, CRP #### [facility] [address] [place] [address] Dr. Walker GabrielHemoglobin (Bld) [Mass/Vol]13.6 g/dSIsxgfo65.0-16.0The [facility] HospitalComment on above:Performed By: #### TSH, LIPID, CMP, URIC, T7, CRP #### [facility] [address] [place] [address] Dr. Walker Cannon #0.02 10e3/ulNormal0.00-0.03The [facility] HospitalComment on above:Performed By: #### TSH, LIPID, CMP, URIC, T7, CRP #### [facility] [address] [place] [address] Dr. Walker Cannon %0.2 %Normal0.0-0.5The [facility] HospitalComment on above: Performed By: #### TSH, LIPID, CMP, URIC, T7, CRP #### [facility] [address] [place] [address] Dr. Walker Gonzalez #2.6 103/ulNormal1.2-3.8The [facility] HospitalComment on above:Performed By: #### TSH, LIPID, CMP, URIC, T7, CRP #### [facility] [address] [place] [address] Dr. Walker Bynumhocytes/100 WBC (Bld)32.4 %Exgtwa24.5-60.0[facility] on above:Performed By: #### TSH, LIPID, CMP, URIC, T7, CRP #### [facility] [address] [place] [address] Dr. Walker StricklandUAL DIFF REQNONormalThe [facility] HospitalComment on above: Performed By: #### TSH, LIPID, CMP, URIC, T7, CRP #### [facility] [address] [place] [address] Dr. Walker Gomez (RBC) [Entitic mass]28.8 zfBkwxxa49.7-34.0The [facility] HospitalComment on above:Performed By: #### TSH, LIPID, CMP, URIC, T7, CRP #### [facility] [address] [place] [address] Dr. Walker Cho (RBC) [Mass/Vol]32.9 g/pPVbxidt54.9-35.2The [facility] HospitalComment on above:Performed By: #### TSH, LIPID, CMP, URIC, T7, CRP #### [facility] [address] [place] [address] Dr. Walker Cho (RBC) [Entitic vol]87.5 cBAknvmw48.0-99.0The [facility] HospitalComment on above:Performed By: #### TSH, LIPID, CMP, URIC, T7, CRP #### [facility] [address] [place] [address] Dr. Walker Painting #0.4 103/ulNormal0.3-0.8The [facility] HospitalComment on above:Performed By: #### TSH, LIPID, CMP, URIC, T7, CRP #### [facility] [address] [place] [address] Dr. Walker Hopkinsocytes/100 WBC (Bld)5.0 %Normal1.7-12.0[facility] Comment on above:Performed By: #### TSH, LIPID, CMP, URIC, T7, CRP #### [facility] [address] [place] [address] Dr. Walker Maher #5.0 103/ulNormal1.4-6.5The [facility] HospitalComment on above:Performed By: #### TSH, LIPID, CMP, URIC, T7, CRP #### [facility] [address] [place] [address] Dr. Walker Henryutrophils/100 WBC (Bld)61.8 %Rkroab65.0-75.0The [facility] HospitalComment on above:Performed By: #### TSH, LIPID, CMP, URIC, T7, CRP #### [facility] [address] [place] [address] Dr. Walker Foss mean volume (Bld) [Entitic vol]8.4 fLCritically low 9.5-13.5The [facility]lois HospitalComment on above:Performed By: #### TSH, LIPID, CMP, URIC, T7, CRP #### [facility] [address] [address] [address] Walker GabrielPLT347 103/cyNyiier570-555[facility] on above: Performed By: #### TSH, LIPID, CMP, URIC, T7, CRP #### [facility] [address] [address] [address] Walker GabrielRBC4.73 106/ulNormal4.20-5.40The [facility] on above:Performed By: #### TSH, LIPID, CMP, URIC, T7, CRP #### [facility] [address] [place] [address] Dr. Walker GabrielWBC8.1 103/ulNormal4.0-11.0[facility] on above: Performed By: #### TSH, LIPID, CMP, URIC, T7, CRP #### [facility] [address] [place] [address] Dr. Walker Gama 02-11-3554IEZ9.7 mg/dLNormal<=1.0[facility] Comment on above:Performed By: #### TSH, LIPID, CMP, URIC, T7, CRP #### [facility] [address] [place] [address] Dr. Walker GabrielPROSun CHEM 8 (BAS METB)on 29-12-4237Ftkpd gap [Moles/Vol]10.2 mmol/LNormalThe [facility] on above:Performed By: #### TSH, LIPID, CMP, URIC, T7, CRP #### [facility] [address] [place] [address] Dr. Walker GabrielCalcium [Mass/Vol]9.0 mg/dLNormal8.4-10.2The [facility] Comment on above:Performed By: #### TSH, LIPID, CMP, URIC, T7, CRP #### [facility] [address] [place] [address] Dr. Walker GabrielChloride [Moles/Vol]99 mmol/EUfhzwe76-300[facility] Comment on above:Performed By: #### TSH, LIPID, CMP, URIC, T7, CRP #### [facility] [address] [address] [address] Walker GabrielCO2 [Moles/Vol]26.5 mmol/OXiqipi28.0-30.0[facility] Comment on above:Performed By: #### TSH, LIPID, CMP, URIC, T7, CRP #### [facility] [address] [address] [address] Walker GabrielCreatinine [Mass/Vol]1.19 mg/dLCritically high0.52-1.04[facility] HospitalComment on above:Performed By: #### TSH, LIPID, CMP, URIC, T7, CRP #### [facility] [address] [place] [address] Dr. Walker FregosoGFR-AF MONGOLIAN>60Normal>=60The [facility] HospitalComment on above:Performed By: #### TSH, LIPID, CMP, URIC, T7, CRP #### [facility] [address] [place] [address] Dr. Walker FregosoGFR-NON AF TRXBLAGZ56 mL/min/1.35w3Bwxcndgjfv low>=60The [facility] HospitalComment on above:Performed By: #### TSH, LIPID, CMP, URIC, T7, CRP #### [facility] [address] [place] [address] Dr. Walker GabrielGlucose [Mass/Vol]105 mg/wVMhvcda76-447FyhBlanchard [facility] Comment on above:Performed By: #### TSH, LIPID, CMP, URIC, T7, CRP #### [facility] [address] [place] [address] Dr. Walker GabrielPotassium [Moles/Vol]3.7 mmol/LNormal3.4-5.0The [facility] Comment on above:Performed By: #### TSH, LIPID, CMP, URIC, T7, CRP #### [facility] [address] [place] [address] Dr. Walker GabrielSodium [Moles/Vol]132 mmol/LCritically pfu423-734TdbBlanchard Valley Health System Bluffton HospitalComment on above:Performed By: #### TSH, LIPID, CMP, URIC, T7, CRP #### [facility] [address] [address] [address] Walker GabrielUrea nitrogen [Mass/Vol]15.0 mg/dLNormal7.0-17.0[facility] HospitalComment on above:Performed By: #### TSH, LIPID, CMP, URIC, T7, CRP #### [facility] [address] [address] [address] Walker GabrielUrea nitrogen/Creatinine [Mass ratio]12.6 mg/mgNoSumma Health Akron CampusComment on above:Performed By: #### TSH, LIPID, CMP, URIC, T7, CRP #### [facility] [address] [place] [address] Dr. Walker GabrielSEAngela RATE WESTERGRENon 03-23-1833XEJ RATE49 mm/hrCritically high <=20The [facility] HospitalComment on above:Performed By: #### TSH, LIPID, CMP, URIC, T7, CRP #### [facility] [address] [place] [address] Dr. Walker GabrielXR CHEST 2 Von 19-96-8525NH CHEST 2 VEXAMINATION:XR CHEST 2 V INDICATION:Pain COMPARISON:05/22/2020 TECHNIQUE:Frontal and lateral projections of the chest are submitted. FINDINGS: The cardiomediastinal silhouette is not enlarged. The pulmonary vascularity is within normal limits. The lungs are clear based on chest radiography. There is no costophrenic angle blunting. IMPRESSION: Unremarkable plain film examination of the chest. Electronically authenticated by: CANDICE PONCE Date: 2021-09-06 20:51[facility] HospitalYPHILIS SCREENING WITH REFLEXon 17-00-6703FKMLJLPC TOTAL AB Non-ReactiveNormalNONREACTIVEChrist HospitalComment on above:Result Comment: No significant level of Treponema pallidum antibody detected. Repeat testing in 2 to 4 weeks may be considered if early infection or incubating syphilis infection is suspected.Performed By: #### SYPHR #### [facility] [address] [place], [place] [address]UQJXSYKQP,DIRECTon 96-46-6329Eqagmswax.indirect [Mass/Vol]0.1 mg/dLNormal0.0 - 0.3Christ HospitalComment on above:Performed By: #### DBILI #### [address] [id number] AND DIFFERENTIALon 03-05-2021% AUTOMATED IMMATURE GRAN 0.3 %Normal0.0 - 0.9Christ HospitalComment on above:Result Comment: Immature Granulocyte Count (IG) includes promyelocytes, myelocytes and metamyelocytes but does not include bands. Percent differential counts (%) should be interpreted in the context of the absolute cell counts (cells/L).Performed By: #### CBCDF #### [address] [id number] (Bld) [#/Vol]0.02 10*3/uLNormal0.00 - 0.10Christ HospitalComment on above:Performed By: #### CBCDF #### [address] [id number]/100 WBC (Bld)0.3 %Normal0.0 - 2.0Christ HospitalComment on above:Performed By: #### CBCDF #### [address] [id number] (Bld) [#/Vol]0.04 10*3/uLNormal0.00 - 0.70Christ HospitalComment on above:Performed By: #### CBCDF #### [address] [id number]/100 WBC (Bld)0.6 %Normal0.0 - 6.0Christ HospitalComment on above:Performed By: #### CBCDF #### [address] [id number] distribution width (RBC) [Ratio]12.2 %Vatdbr89.5 - 14.5Christ HospitalComment on above:Performed By: #### CBCDF #### [address] [id number] (Bld) [Volume fraction]38.3 %Sseywf38.0 - 46.0Christ HospitalComment on above:Performed By: #### CBCDF #### [address] [id number] (Bld) [Mass/Vol]12.0 g/tFDmxskh04.0 - 16.0Christ HospitalComment on above:Performed By: #### CBCDF #### [address] [id number] (Bld) [#/Vol]2.33 10*3/uLNormal1.20 - 4.80Christ HospitalComment on above:Performed By: #### CBCDF #### [address] [id number]/100 WBC (Bld)35.6 %Jhijmm43.0 - 44.0Christ HospitalComment on above:Performed By: #### CBCDF #### [address] [id number] (RBC) [Mass/Vol]31.3 g/dLLow32.0 - 36.0Christ HospitalComment on above:Performed By: #### CBCDF #### [address] [id number] (RBC) [Entitic vol]93 dVLcsquz18 - 100Christ HospitalComment on above:Performed By: #### CBCDF #### [address] [id number] (Bld) [#/Vol]0.34 10*3/uLNormal0.10 - 1.00Christ HospitalComment on above:Performed By: #### CBCDF #### [address] [id number]/100 WBC (Bld)5.2 %Normal2.0 - 10.0Christ HospitalComment on above:Performed By: #### CBCDF #### [address] [id number] (Bld) [#/Vol]3.80 10*3/uLNormal1.20 - 7.70Christ HospitalComment on above:Performed By: #### CBCDF #### [address] [id number]/100 WBC (Bld)58.0 %Gdjsio53.0 - 80.0Christ HospitalComment on above:Performed By: #### CBCDF #### [address] [id number] (Bld) [#/Vol]221 10*3/aQWzdhbs146 - 450Christ HospitalComment on above:Performed By: #### CBCDF #### [address] [id number] x10E12/LNormal4.00 - 5.20[facility] Comment on above:Performed By: #### CBCDF #### [address] [id number] (Bld) [#/Vol]6.6 10*3/uLNormal4.4 - 11.3Christ HospitalComment on above:Performed By: #### CBCDF #### [address] [id number] PANELon 92-95-9717Yybuinw [Mass/Vol]3.6 g/dL Normal3.4 - 5.0Christ HospitalComment on above:Performed By: #### CMP #### [address] [id number] [Catalytic activity/Vol]77 U/EOmgjuv30 - 110UH [facility] Medical CenterComment on above:Performed By: #### CMP #### [address] [id number] [Catalytic activity/Vol]20 U/LNormal7 - 45UH Kindred Hospital At MorrisComment on above:Result Comment: Patients treated with Sulfasalazine may generate falsely decreased results for ALT.Performed By: #### CMP #### [address] [address] [id number] gap [Moles/Vol]10 mmol/RCzlbjb79 - 20Christ HospitalComment on above:Performed By: #### CMP #### [address] [id number] [Catalytic activity/Vol]24 U/LNormal9 - 39Christ HospitalComment on above:Performed By: #### CMP #### [address] [id number] [Mass/Vol]0.5 mg/dLNormal0.0 - 1.2Christ HospitalComment on above:Performed By: #### CMP #### [address] [id number] [Mass/Vol]9.2 mg/dLNormal8.6 - 10.3[facility] Hospital At MorrisComment on above:Performed By: #### CMP #### [address] [id number] [Moles/Vol]101 mmol/QBydbde76 - 107Christ HospitalComment on above:Performed By: #### CMP #### [address] [id number] [Mass/Vol]0.85 mg/dLNormal0.50 - 1.05[facility] At MorrisComment on above:Performed By: #### CMP #### [address] [id number]-VKZEJHV AM.>60Normal>60[facility] Comment on above:Result Comment: CALCULATIONS OF ESTIMATED GFR ARE PERFORMED USING THE MDRD STUDY EQUATION FOR THE IDMS-TRACEABLE CREATININE METHODS. CLIN CHEM 2007;53:766-72Performed By: #### CMP #### [address] [id number]-VEI AM.>60Normal>60[facility] Comment on above:Performed By: #### CMP #### [address] [id number] [Mass/Vol]75 mg/aOXoppey40 - 99Christ HospitalComment on above:Performed By: #### CMP #### [address] [id number] (Bld) [Moles/Vol]30 mmol/NWflkba25 - 32Christ HospitalComment on above:Performed By: #### CMP #### [address] [id number] [Moles/Vol]4.1 mmol/LNormal3.5 - 5.3Christ HospitalComment on above:Performed By: #### CMP #### [address] [id number] [Mass/Vol]7.0 g/dLNormal6.4 - 8.2Christ HospitalComment on above:Performed By: #### CMP #### [address] [id number] [Moles/Vol]137 mmol/BKqlwsy074 - 145Christ HospitalComment on above:Performed By: #### CMP #### [address] [id number] nitrogen [Mass/Vol]21 mg/dLNormal6 - 23Christ HospitalComment on above:Performed By: #### CMP #### [address] [id number] PANEL,ACUTE (HCFA)on 90-74-8075MPNTMKIRX B CORE AB,IGMNon-ReactiveNormalNONREACTIVEChrist HospitalComment on above: Result Comment: Results from patients taking biotin supplements or receiving high-dose biotin therapy should be interpreted with caution due to possible interference with this test. Providers may contact their local laboratory for further information.Performed By: #### HEPA2 #### [facility] [address] [place], [place] [address]PSDEUKGZP C ABNon-ReactiveNormalNONREACTIVEChrist HospitalComment on above:Result Comment: Results from patients taking biotin supplements or receiving high-dose biotin therapy should be interpreted with caution due to possible interference with this test. Providers may contact their local laboratory for further information.Performed By: #### HEPA2 #### [facility] [address] [place], [place] [address]HMVMARIDW A PE-ZIPLcr-UawadklrYltsejJIRWCAPXZSHDGGlencoe Regional Health ServicesCommary [facility] rehabilitation hospital on above:Result Comment: Biotin interference may cause falsely decreased results. Patients taking a Biotin dose of up to 5 mg/day should refrain from taking Biotin for 24 hours before sample collection. Providers may contact their local laboratory for further information.Performed By: #### HEPA2 #### [facility] [address] [place], [place] [address]WAL.B SURFACE AGNon-ReactiveNormalNONREACTIVEChrist HospitalComment on above:Result Comment: Biotin interference may cause falsely decreased results. Patients taking a Biotin dose of up to 5 mg/day should refrain from taking Biotin for 24 hours before sample collection. Providers may contact their local laboratory for further information.Performed By: #### HEPA2 #### [facility] [address] [place], [place] [address]FVR 1/2 ANTIGEN/ANTIBODY SCREEN WITH REFLEX TO CONFIRMATIONon [id number] 1/2 AG/AB SCREENNon-ReactiveNormakNONRELenox Hill HospitalCommary free bed rehabilitation hospital on above:Result Comment: HIV Ag/Ab screen is performed using the Siemens AtellCNG-One HIV Ag/Ab Combo assay which detects the presence of HIV p24 antigen as well as antibodies to HIV-1 (Group M and O) and HIV-2. . No laboratory evidence of HIV infection. If acute HIV infection is suspected, consider testing for HIV RNA by PCR (viral load).Performed By: #### HIV #### [facility] [address] [place], [place] [address]AKHNQTYW SCREENING WITH REFLEXon [id number] Specimen SourceNoPlatte Valley Medical CenterComment on above:Performed By: #### SYPHR #### [facility] [address] [place], [place] [address]Qmbtnxruc By: #### HEPA2 #### [facility] [address] [place], [place] [address]Ddzhxepur By: #### HIV #### [facility] [address] [place], [place] [address]NLHMBXGXA PANEL,ACUTE (HCFA)on [id number] A AB-IGM NONREACTIVENaval Hospital OaklandComment on above:Result Comment: Biotin interference may cause falsely decreased results. Patients taking a Biotin dose of up to 5 mg/day should refrain from taking Biotin for 24 hours before sample collection. Providers may contact their local laboratory for further information.Performed By: #### HEPA2 #### [facility] [address] [place] [id number] C ABNONREACTIVENaval Hospital OaklandCommary free bed rehabilitation hospital on above:Result Comment: Results from patients taking biotin supplements or receiving high-dose biotin therapy should be interpreted with caution due to possible interference with this test. Providers may contact their local laboratory for further information.Performed By: #### HEPA2 #### [facility] [address] [place], [place] [address]IYIVTAVHS B CORE AB,IGMNONREACTIVENormCollege Hospital Costa MesaComment on above:Result Comment: Results from patients taking biotin supplements or receiving high-dose biotin therapy should be interpreted with caution due to possible interference with this test. Providers may contact their local laboratory for further information.Performed By: #### HEPA2 #### [facility] [address] [place], [place] [address]LGG.B SURFACE AGNONREACTIVENaval Hospital OaklandComment on above:Result Comment: Biotin interference may cause falsely decreased results. Patients taking a Biotin dose of up to 5 mg/day should refrain from taking Biotin for 24 hours before sample collection. Providers may contact their local laboratory for further information.Performed By: #### HEPA2 #### [facility] [address] [place], [place] [address]VUV ANTIGEN/ANTIBODY SCREENon [id number] AG/AB SCREEN NONREACTIVENormalNONREACTIVEBanner Fort Collins Medical CenterComment on above:Result Comment: HIV Ag/Ab screen is performed using the Siemens [employer] HIV Ag/Ab Combo assay which detects the presence of HIV p24 antigen as well as antibodies to HIV-1 (Group M and O) and HIV-2.Performed By: #### HIV #### [facility] [address] [place], [place] [address]PKQAATAO SCREENING WITH REFLEXon 36-11-2325PRSDLHUG TOTAL AB NONREACTIVENormalNONREACTIVEBanner Fort Collins Medical CenterComment on above:Result Comment: No significant level of Treponema pallidum antibody detected. Repeat testing in 2 to 4 weeks may be considered if early infection or incubating syphilis infection is suspected.Performed By: #### SYPHR #### [facility] [address] [place], [place] [address]KQDZDHOMU,DIRECTon 12-44-8153Ulrzjtuvk.direct [Mass/Vol]0.1 mg/dLNormal0.0 - 0.3[facility] CenterComment on above:Performed By: #### DBILI #### [address] [id number] 12-39-3748Wwdvhsztqsa distribution width (RBC) [Ratio] 12.6 %Rxyrts27.5 - 14.5[facility] Medical CenterComment on above:Performed By: #### CBC #### [address] [id number] (Bld) [Volume fraction]38.4 %Evkxjc09.0 - 46.0[facility] CenterComment on above:Performed By: #### CBC #### [address] [id number] (Bld) [Mass/Vol]12.5 g/qGBtqeer71.0 - 16.0[facility] HospitalComment on above:Performed By: #### CBC #### [address] [id number] (RBC) [Mass/Vol]32.6 g/oNMlgrjy01.0 - 36.0[facility] HospitalComment on above:Performed By: #### CBC #### [address] [id number] (RBC) [Entitic vol]88 wPWhnbow50 - 100[facility] HospitalComment on above:Performed By: #### CBC #### [address] [id number] (Bld) [#/Vol]350 10*3/oOKoqtnz915 - 450[facility] HospitalComment on above:Performed By: #### CBC #### [address] [id number] (Bld) [#/Vol]4.34 x10E12/LNormal4.00 - 5.20[facility] HospitalComment on above:Performed By: #### CBC #### [address] [id number] (Bld) [#/Vol]5.6 10*3/uLNormal4.4 - 11.3[facility] HospitalComment on above:Performed By: #### CBC #### [address] [id number] PANELon 35-97-4307Mkmlbww [Mass/Vol]4.1 g/dL Normal3.4 - 5.0[facility] HospitalComment on above:Performed By: #### CMP #### [address] [id number] [Catalytic activity/Vol]105 U/CEqjrwq99 - 110[facility] HospitalComment on above:Performed By: #### CMP #### [address] [id number] [Catalytic activity/Vol]24 U/LNormal7 - 45[facility] HospitalComment on above:Result Comment: Patients treated with Sulfasalazine may generate falsely decreased results for ALT.Performed By: #### CMP #### [address] [id number] gap [Moles/Vol]10 mmol/UCvcido86 - 20[facility] HospitalComment on above:Performed By: #### CMP #### [address] [id number] [Catalytic activity/Vol]22 U/LNormal9 - 39[facility] HospitalComment on above:Performed By: #### CMP #### [address] [id number] [Mass/Vol]0.4 mg/dLNormal0.0 - 1.2[facility] HospitalComment on above:Performed By: #### CMP #### [address] [id number] [Mass/Vol]9.1 mg/dLNormal8.6 - 10.3[facility] HospitalComment on above:Performed By: #### CMP #### [address] [id number] [Moles/Vol]101 mmol/FGpxisk90 - 107[facility] HospitalComment on above:Performed By: #### CMP #### [address] [id number] [Mass/Vol]0.79 mg/dLNormal0.50 - 1.05[facility] HospitalComment on above:Performed By: #### CMP #### [address] [id number]-LJYNVII AM.>60Normal>60[facility] CenterComment on above:Result Comment: CALCULATIONS OF ESTIMATED GFR ARE PERFORMED USING THE MDRD STUDY EQUATION FOR THE IDMS-TRACEABLE CREATININE METHODS. CLIN CHEM 2007;53:766-72Performed By: #### CMP #### [address] [id number]-BFP AM.>60Normal>60[facility] Comment on above:Performed By: #### CMP #### [address] [id number] [Mass/Vol]90 mg/sQPailnz41 - 99[facility] HospitalComment on above:Performed By: #### CMP #### [address] [id number] (Bld) [Moles/Vol]28 mmol/HYfqlyg42 - 32[facility] CenterComment on above:Performed By: #### CMP #### [address] [id number] [Moles/Vol]4.4 mmol/LNormal3.5 - 5.3[facility] HospitalComment on above:Performed By: #### CMP #### [address] [id number] [Mass/Vol]8.1 g/dLNormal6.4 - 8.2[facility] HospitalComment on above:Performed By: #### CMP #### [address] [id number] [Moles/Vol]135 mmol/WRbg994 - 145[facility] CenterComment on above:Performed By: #### CMP #### [address] [id number] nitrogen [Mass/Vol]21 mg/dLNormal6 - 23[facility] HospitalComment on above:Performed By: #### CMP #### [address] [id number] SCREENING WITH REFLEXon [id number] Specimen [facility] General HospitalComment on above:Performed By: #### SYPHR #### [facility] [address] [place], [place] [address]Vbmejmccw By: #### HIV #### [facility] [address] [place], [place] [address]Oviblvuvy By: #### HEPA2 #### [facility] [address] [place], [place] [address]FOVGbz 85-25-5755xBBL44.9 kMriuux33.2-34.4[facility] OhioComment on above:Result Comment: Performed at [address] [place], [place] [address] ([phone] By: #### CDP, PT, PTT, BNP, BMP, TROPI ####[address] , [place] [id number] Basic Metabolic Profon 08-13-2017(cont.)Normal [facility] OhioComment on above:Result Comment: Average GFR for 30-39 years old: 107 mL/min/1.73sq mChronic Kidney Disease: <60 mL/min/1.73sq mKidney failure: <15 mL/min/1.73sq meGFR calculated using average adult body mass. A dditional eGFR calculator available at:http://www.[employer]/multiple_crcl_2012.htmPerformed By: #### CDP, PT, PTT, BNP, BMP, TROPI ####[address] [place] [address] Anion gap11 mmol/LNormal9-17[facility] OhioComment on above:Performed By: #### CDP, PT, PTT, BNP, BMP, TROPI ####[address] [place] [address] BUN/CRE Cqoyr18Gqnr5-69 [facility] OhioComment on above:Performed By: #### CDP, PT, PTT, BNP, BMP, TROPI ####[address] , [place] [address] Calcium9.6 mg/dLNormal8.6-10.4[facility] OhioComment on above:Performed By: #### CDP, PT, PTT, BNP, BMP, TROPI ####[address] , [place] [address] Bmppoblb65 mmol/UFed36-833KakisKing'S Daughters Medical Center [place] Comment on above:Performed By: #### CDP, PT, PTT, BNP, BMP, TROPI ####[address] [place] [address] DA979 mmol/L Qfpuri35-37AphgnKing'S Daughters Medical Center OhioComment on above:Performed By: #### CDP, PT, PTT, BNP, BMP, TROPI ####[address] , [place] [address] Xllcybnayn6.73 mg/dLNormal0.50-0.90[facility] [place] Comment on above:Performed By: #### CDP, PT, PTT, BNP, BMP, TROPI ####[address] , [place] [address] eGFR (non-black) mL/min/{1.73_m2}Normal>60[facility] OhioComment on above:Performed By: #### CDP, PT, PTT, BNP, BMP, TROPI ####[address] , [place] [address] Glucose mass muqd138 mg/cGHzis93-41GvhpjWhite HospitalComment on above:Performed By: #### CDP, PT, PTT, BNP, BMP, TROPI ####[address] [place] [address] Potassium molar conc3.2 mmol/LLow3.7-5.3MHolmes County Joel Pomerene Memorial Hospital HospitalComment on above: Performed By: #### CDP, PT, PTT, BNP, BMP, TROPI ####[address] , [place] [address] Sodium138 mmol/FXdakun035-078LwbonMemorial Hospitalment on above:Performed By: #### CDP, PT, PTT, BNP, BMP, TROPI ####[address] [place] [address] Staging:[facility] HospitalComment on above:Result Comment: Stage 1: Some kidney damage normal GFRStage 2: Mild kidney damage GFR 60-89Stage 3: Moderate kidney damage GFR 30-59Stage 4: Severe kidney damage GFR 15-29Stage 5: Severe kidney damage GFR <15ESRD - chronic treatment by dialysis or transplantPerformed at [address] [place] [address] ([phone] By: #### CDP, PT, PTT, BNP, BMP, TROPI ####[address] , [facility]83 Urea mg/dLNormal6-20[facility] OhioComment on above:Performed By: #### CDP, PT, PTT, BNP, BMP, TROPI ####[address] , [place] [address] Brain Natri. Peptideon 65-20-2210QPNgx/mLNormal<300[facility] OhioComment on above:Result Comment: Pro-BNP results cannot be compared to BNP results.Performed By: #### CDP, PT, PTT, BNP, BMP, TROPI ####[address] , [facility]83 BNP NormalMemorial Hospitalment on above:Result Comment: Pro-BNP Reference Range:Rule Out: <300Grey Zone: Age <50 300-450 Age 50-75 300-900 Age >75 300- 1800Usually represents mild to moderate HF but other cardiopulmonary causes penelope ot be ruled out.Rule In: Age <50 >450 Age 50-75 >900 Age >75 >1800Performed at [address] [place], [place] [address] Performed By: #### CDP, PT, PTT, BNP, BMP, TROPI ####[address] , [place] [address] CBC with Diffon 69-50-5797Pxb. Basophil0.00 k/uLNormal0.0-0.2MWhite HospitalComment on above:Result Comment: Performed at [address] [place], [place] [address] Performed By: #### CDP, PT, PTT, BNP, BMP, TROPI ####[address] , [place] [address] Abs.Neutrophil (Seg)4.50 k/uLNormal1.8-7.7[facility] OhioComment on above:Performed By: #### CDP, PT, PTT, BNP, BMP, TROPI ####[address] , [place] [address] Basophils/100 WBC Auto (Bld)0 %Normal0-2MWhite HospitalComment on above:Performed By: #### CDP, PT, PTT, BNP, BMP, TROPI ####[address] , [place] [address] Eosinophils0.20 10*3/uLNormal0.0-0.4[facility] OhioComment on above: Performed By: #### CDP, PT, PTT, BNP, BMP, TROPI ####[address] , [place] [address] Eosinophils/100 leukocytes2 %Normal0-8 [facility] OhioComment on above:Performed By: #### CDP, PT, PTT, BNP, BMP, TROPI ####[address] , [place] [address] Erythrocyte distribution width Auto Ratio (RBC)15.0 %Uyvvxf32.1-15.2MWhite HospitalComment on above:Performed By: #### CDP, PT, PTT, BNP, BMP, TROPI ####[address] , [facility]83 Erythrocytes (RBC)4.75 10*6/uLNormal4.0-5.2MHolmes County Joel Pomerene [facility] Hospital HospitalComment on above:Performed By: #### CDP, PT, PTT, BNP, BMP, TROPI ####[address] , [place] [address] Hematocrit (HCT)41.0 % Qeyrpb35-91YcnrwKing'S Daughters Medical Center OhioComment on above:Performed By: #### CDP, PT, PTT, BNP, BMP, TROPI ####[address] , [facility]83 Hemoglobin mass conc (Bld)13.7 g/cTYhruot24.0-16.0[facility] HospitalComment on above:Performed By: #### CDP, PT, PTT, BNP, BMP, TROPI ####[address] , [place] [address] Lymphocytes2.60 10*3/uLNormal1.0-4.8[facility] OhioComment on above: Performed By: #### CDP, PT, PTT, BNP, BMP, TROPI ####[address] , [facility]83 Lymphocytes/100 aqucbjwzby57 %Normal 24-44[facility] OhioComment on above:Performed By: #### CDP, PT, PTT, BNP, BMP, TROPI ####[address] , [facility]83 GUA24.8 zgRxefzw43-17XrlbkKing'S Daughters Medical Center OhioComment on above: Performed By: #### CDP, PT, PTT, BNP, BMP, TROPI ####[address] , [place] [address] MCHC mass conc (RBC)33.4 g/dLNormal 31-37[facility] OhioComment on above:Performed By: #### CDP, PT, PTT, BNP, BMP, TROPI ####[address] , [place] [address] JEW66.3 iTSlsiee81-832UwjbgKing'S Daughters Medical Center OhioComment on above: Performed By: #### CDP, PT, PTT, BNP, BMP, TROPI ####[address] [place] [address] Lxrvdivwn8.40 10*3/uLNormal0.0-1.0 [facility] OhioComment on above:Performed By: #### CDP, PT, PTT, BNP, BMP, TROPI ####[address] , [place] [address] Monocytes/100 leukocytes6 %Normal0-12[facility] OhioComment on above: Performed By: #### CDP, PT, PTT, BNP, BMP, TROPI ####[address] , [place] [address] Neutrophil (Seg)58 %Qdhmrq64-53AohzdKing'S Daughters Medical Center OhioComment on above:Performed By: #### CDP, PT, PTT, BNP, BMP, TROPI ####[address] , [place] [address] Platelet mean volume (PMV)6.7 fLNormal6.0-12.0[facility] OhioComment on above:Performed By: #### CDP, PT, PTT, BNP, BMP, TROPI ####[address] , [place] [address] Ayaytchkb560 10*3/uL Aeeitg090-695FjvjqKing'S Daughters Medical Center OhioComment on above:Performed By: #### CDP, PT, PTT, BNP, BMP, TROPI ####[address] , [place] [address] WBC (Leukocytes)7.7 10*3/uLNormal3.5-11.0[facility] [place] Comment on above:Performed By: #### CDP, PT, PTT, BNP, BMP, TROPI ####[address] [place] [address] Auto Diff PerformedNOT REPORTEDNoBrecksville VA / Crille HospitalComment on above:Performed By: #### CDP, PT, PTT, BNP, BMP, TROPI ####[address] [place] [address] Erythrocyte morphologyNOT REPORTEDCleveland Clinic Mentor HospitalComment on above:Performed By: #### CDP, PT, PTT, BNP, BMP, TROPI ####[address] [place] [address] Erythrocytes (RBC)NOT REPORTEDNormTogus VA Medical Center HospitalComment on above: Performed By: #### CDP, PT, PTT, BNP, BMP, TROPI ####[address] [place] [address] Granulocytes/100 WBC (Bld)NOT REPORTED Normal0.00-0.30[facility] OhioComment on above:Performed By: #### CDP, PT, PTT, BNP, BMP, TROPI ####[address] , [place] [address] Immature granulocytes #/vol (Bld)NOT MIIHURXOTbbhip9FytnxKing'S Daughters Medical Center OhioComment on above:Performed By: #### CDP, PT, PTT, BNP, BMP, TROPI ####[address] [place] [address] PlateletsNOT REPORTEDNoBrecksville VA / Crille HospitalComment on above:Performed By: #### CDP, PT, PTT, BNP, BMP, TROPI ####[address]Tiffin [facility]83 WBC MorphologyNOT REPORTEDCleveland Clinic Mentor HospitalComment on above:Performed By: #### CDP, PT, PTT, BNP, BMP, TROPI ####[address]Tiffin [phone] Provider Noteon [id number] IP Note OR TranscriptionNoCenterville [id number] Coag RelTime (PPP)0.9 {INR}Normal0.9-1.2MHolmes County [facility]omerene [facility] HospitalComment on above:Result Comment: Performed at [address] [place] [address] Performed By: #### CDP, PT, PTT, BNP, BMP, TROPI ####[address]Tiffin [place] [address] Prothrombin time (PT) Coag time (PPP)9.7 sNormal 9.7-12.2MWhite HospitalComment on above:Performed By: #### CDP, PT, PTT, BNP, BMP, TROPI ####[address]Tiffin [place] [address] Troponinon 43-82-5350Lgwnwbdf I.cardiac mass concCleveland Clinic Mentor HospitalComment on above:Result Comment: Reference Range: <0.03 Within reference range. 0.03-0.09 Possible myocardial damage.Repeat at appropriate intervals to rule out chronic elevation. >= 0.10 Indicative of myocardial damage.Patients with high levels of Biotin oral intake (i.e >5mg/day) may have falsely decreased Troponin T levels. Samples collected within 8 hours of biotin intake may require additional information for diagnosis.Performed at [address] [place] [address] Performed By: #### CDP, PT, PTT, BNP, BMP, TROPI ####[address]Tiffin [facility]83 Troponin T.cardiac mass concug/LNormal <0.03[facility] OhioComment on above:Result Comment: Troponin T results cannot be compared to Troponin-I results.Performed By: #### CDP, PT, PTT, BNP, BMP, TROPI ####[address] [place] [address] XR CHEST PORTABLEon [id number] CHEST PORTABLEREPORT: Portable AP radiograph of the chest obtained at 1125 hoursINDICATION: Chest painFINDINGS: The lungs are well expanded and clear bilaterally. No focal consolidation, pleural effusion or pneumothorax seen. Normal cardiac and mediastinal silhouettes. No free intraperitoneal air. Final report el ectronically signed by Sruthi Mo on 08/13/2017 11:50 AMIMPRESSION: Normal chestInterpreted by:RACHEL Haskinsigned by:Sruthi Mo MD08/13/inal resultNormalKing'S Daughters Medical Center [place] Vital Signs Date TimeVital SignValuePerforming GalrwcoqwQxprwnpm07-53-0659 14:03-0400Body zaxhsq750.94 cmMD Smiley Urias Work Phone: [phone] [place], [place] 5030910-23-2024 14:03-0400 Body mass index (BMI) [Ratio]46.3 kg/m2MD Smiley Urias Work Phone: [phone] [place], [place] 5030910-23-2024 14:03-0400 Body .18 kgMD Smiley Urias Work Phone: [phone] [place], [place] 5030910-23-2024 14:03-0400 Diastolic blood segbytgv30 mm[Hg]MD Smiley Urias Work Phone: [phone] [place], [place] 5030910-23-2024 14:03-0400 Heart rate74 /minMD Smiley Urias Work Phone: [phone] [place], [place] 50[address]10-23-2024 14:03-0400 Respiratory rate12 /minMD Smiley Urias Work Phone: [phone] [place], [place] 50[address]10-23-2024 14:03-0400 Systolic blood fftugqgr586 mm[Hg]MD Smiley Urias Work Phone: [facility]08-08-2022 10:50-0400 Body iyoetp640.9 cmCanabella Romero DO Work Phone: [facility]08-08-2022 10:50-0400Body .7 kgChas Romero DO Work Phone: [facility]08-08-2022 10:50-0400Diastolic blood vnmzseyg21 mm[Hg]Chas Romero DO Work Phone: [facility] [facility]08-08-2022 10:50-0400Heart rate66 /min Chas Romero DO Work Phone: [facility]08-08-2022 10:50-7076WdT9% (BldA) [Mass fraction]98 %Chas Romero DO Work Phone: [facility]08-08-2022 10:50-0400Systolic blood verrctun665 mm[Hg]Chas Romero DO Work Phone: [facility]07-06-2022 11:45-0400Body uysonn082.57 cmJustin Miracle Other [employer] Other 07-06-2022 11:45-0400Body mass index (BMI) [Ratio] 42.12 kg/f2Lecurr Miracle Other [employer] Other 07-06-2022 11:45-0400Body vnzuyy658.97 kgJustin Miracle Other [facility] [employer] Other 05-18-2022 10:45-0400Body .57 cmJustin Miracle Other [employer] Other 05-18-2022 10:45-0400Body mass index (BMI) [Ratio] 42.12 kg/c3Iuwbmf Miracle Other [employer] Other 05-18-2022 10:45-0400Body plhduh378.97 kgJustramiro Turner Other [facility] [employer] Other 05-17-2022 13:49-0400Body jvemmi358.9 cmCanabella Romero DO Work Phone: [facility]05-17-2022 13:49-0400Body jltamc650.62 kgChas Romero DO Work Phone: [facility]05-17-2022 13:49-0400Diastolic blood yuxfhrso01 mm[Hg]Chas Romero DO Work Phone: [facility]05-17-2022 13:49-0400Heart rate69 /min Chas Romero DO Work Phone: [facility]05-17-2022 13:49-0183ReK9% (BldA) [Mass fraction]100 %Chas Romero DO Work Phone: [facility]05-17-2022 13:49-0400Systolic blood rzcqgpyo709 mm[Hg]Chas Romero DO Work Phone: [facility]03-23-2022 11:15-0400Body hozgia054.57 cmJustin Miracle Other [employer] Other 03-23-2022 11:15-0400Body mass index (BMI) [Ratio] 42.12 kg/u1Nmpeee Miracle Other [facility] [employer] Other 03-23-2022 11:15-0400Body jkuypt182.97 kgJustin Miracle Other [employer] Other 01-26-2022 11:15-0500Body chdlop635.57 cmJustin Miracle Other [employer] Other 01-26-2022 11:15-0500Body mass index (BMI) [Ratio] 47.03 kg/b8Eckzff Miracle Other [employer] Other 01-26-2022 11:15-0500Body hxpcxo236.85 kgJustin Miracle Other [employer] Other 12-15-2021 11:00-0500Body iclzkq998.57 cmJustin Miracle Other [employer] Other 12-15-2021 11:00-0500Body mass index (BMI) [Ratio] 46.85 kg/v9Zvmqpd Miracle Other [employer] Other 12-15-2021 11:00-0500Body jrzgfe033.4 kgJustin Miracle Other [employer] Other 11-17-2021 14:00-0500Body qnmsuc062.57 cmJustin Miracle Other [employer] Other 11-17-2021 14:00-0500Body mass index (BMI) [Ratio] 42.12 kg/e8Rfbnai Miracle Other [employer] Other 11-17-2021 14:00-0500Body obuiqg023.97 kgJustin Miracle Other [employer] Other 10-20-2021 10:30-0400Body .57 cmJustin Miracle Other [employer] Other 10-20-2021 10:30-0400Body mass index (BMI) [Ratio] 42.12 kg/r9Yomrilramiro Turner Other [place] [employer] Other 10-20-2021 10:30-0400Body .97 kgJustramiro Turner Other [employer] Other Encounters Encounter DateEncounter TypeCare ProviderFacilityStart: 11-16-2024 End: 75-35-4569dybbfywdmcEhnl ProviderFacility:[facility]tart: 82-81-1422eaqgjdlhvlGouacobuibg AbdelazizFacility:[facility]: 07-12-2024 End: 90-64-2669oxokadyujbApodre J LampeFacility:[facility]ITALtart: 07-12-2024 End: 73-05-8290Ehr Drop offCatherine Willis [facility] Start: 04-20-2024 End: 13-32-1776enojkatjhwQV Smiley Esparza Hochivo Work Phone: [facility] Work Phone: Start: 04-20-2024 End: 49-72-9640Wkbtpea encounter procedureMD Smiley Hoy Work Phone: [facility] Work Phone: Start: 39-75-4895Obqkmcvvwn RecurringMD Smiley Hoy Work Phone: [facility] CredibleStart: 07-13-2023 End: 29-40-2633akckkeibykSfkrjax Vytautas Giedraitis MDFacility:PM [place] Start: 06-15-2023 End: 80-27-1021qjuukhzsmiTlceuhj Vytautas Giedraitis MDFacility:[facility] [place] Start: 04-27-2023 End: 45-81-9694uittcgwnmmPdilhki Vytautas Giedraitis MDFacility:PM [place] Start: 29-30-8314vmtzbaimymFIOEHGCleveland Clinic Mercy Hospital Start: 58-93-2852yjnogloouoTQAZCUniversity Hospitals Elyria Medical Centertart: 11-69-0478wzwimqezuvRTCUCUniversity Hospitals Elyria Medical Centertart: 01-01-2023 End: 58-15-3724ovruskcshuJLGTUUniversity Hospitals Elyria Medical Centertart: 57-49-5872omirudjytnCPJONHGalion Community Hospitaltart: 12-05-8180tdxmifvwnaNAIHKHGalion Community Hospitaltart: 93-42-4495vobwbgsskvCPWNEUniversity Hospitals Elyria Medical Centertart: 40-37-5318Uzdovgsgu for other preprocedural examinationUniversity Hospitals Elyria Medical Centertart: 08-22-2022 End: 46-97-0950hyheuldlmkAK DOUGLAS HOY .Facility:Y8Jlmqw: 28-50-9543yrwcimhnuy CAROLE HENRYSt. Vincent Hospitaltart: 71-64-7837gdkvsaqgbo PARRISH CASTROKnox Community Hospitaltart: 07-02-2022 ambulatoryGalion Community Hospitaltart: 05-15-2022 End: 35-12-5663ghtetzpmgoGEZZYLima City Hospitaltart: 05-12-2022 End: 33-95-0855kujqsssugtDSXAZLima City Hospitaltart: 05-05-2022 End: 83-22-3135zabdrxjbkeCGJHOLima City Hospitaltart: 87-23-0752szoxaqgwwxJBQSHXGalion Community Hospitaltart: 04-18-2022 End: 64-56-6530eojdcqfupmRI DOUGLAS HOY .Facility:D4Cdbuu: 70-84-5679toszxxkwfw MARISA [facility] Centertart: 04-03-2022 End: 60-40-7611zzuobyfbdcDSTXA EBRAHEIMDiley Ridge Medical Centertart: 04-01-2022 End: 95-70-3458sjpgchkyogVICC [facility] Centertart: 25-11-9074fqiwjeqcsdYEOXIYV HOYFacility:[facility]ENTERtart: 02-03-2022 End: 53-52-5926urxxgtclzoZSKMCEB M HOYFacility:[facility] Centertart: 02-03-2022 End: 50-74-5628Yvceofw encounter procedureChelsea Zale DO Work Phone: NeurologyComment on above:Right leg weakness (Primary Dx)Start: 01-31-2022 End: 58-96-6161shpzshtkewFL SMILEY HOY .Facility:K8Eangp: 16-89-8687Mhwnxvief encounterChelsea Zale DO Work Phone: NeurologyComment on above:ResultsStart: 01-27-2022 End: 42-29-2174vxcllczrgdPD SMILEY HOY .Facility:A4Gglap: 01-23-2022 End: 32-23-5563gpokltmjlrDDIGILQ M HOYFacility:[facility] Centertart: 01-23-2022 End: 71-82-2793yngfpdhhrrVhd 400) Work Phone: NeurologyComment on above:EMGStart: 01-23-2022 End: 57-87-3532Cevjbkm encounter procedureEmg 2 Neur Rej (Max Weight: 400) Work Phone: [facility] CENTERtart: 01-22-2022 End: 61-82-8351rpvoclkcmbBX SMILEY HOY .Facility:W6Urlon: 01-13-2022 End: 39-93-0813qqgzsajdovHQPBVF CRAMERFacility:H5Wvegh: 01-01-2022 End: 38-76-5340nknjhoaryeJtmqkd Kelley Other [facility] [employer] Other Start: 47-26-1273Tmpwkz outpatient visit 15 minutes Rolando Mena OrthopedicsStart: 70-83-6836Rjjkgmmgm encounterChelsea Zale DO Work Phone: NeurologyComment on above:Insurance Authorization Start: 11-13-2021 End: 98-61-5858roshftriyyFqrnam Kelley Other [employer] Other Start: 95-67-1541Uxhpnz outpatient visit 15 minutes Rolandoramiro Mena OrthopedicsStart: 11-12-2021 End: 52-78-6921enexxpjjwyOFMALED ZALEFacility:[facility] Centertart: 11-12-2021 End: 44-19-8473Ppzhkpc encounter procedureChelsea Zale DO Work Phone: NeurologyComment on above:Right leg weakness (Primary Dx)Start: 49-59-8148Oziquhpix encounterChelsea Zale DO Work Phone: NeurologyComment on above:Received Outside Medical RecordsStart: 10-02-2021 End: 82-99-0831aufnjwxtnkTC SMILEY URIAS .Facility:X9Gozlc: 09-30-2021 End: 08-46-0902oggctsayogTbagvf Kelley Other [employer] Other Start: 82-19-7281Ldjkribqy encounterJustin Andrés Mena OrthopedicsStart: 09-24-2021 End: 48-04-2538pyrdlqoscxSNIKGSV PROVIDERFacility:METROHealthStart: 09-18-2021 End: 67-54-6027hlbnjicjmkVicdvs Miracle Other [employer] Other Start: 90-52-8724Owcppf outpatient visit 15 minutes Rolando Mena OrthopedicsStart: 09-06-2021 End: 22-26-4226uucthxylsjKHOVW PARKERFacility:E5Nviuh: 07-24-2021 End: 77-46-4413zcidscsqlqSrdita Miracle Other [employer] Other Start: 65-36-5985Ddwtqx outpatient visit 15 minutes Rolando Andrés Mena OrthopedicsStart: 06-12-2021 End: 77-71-5963pgcdycrmbdLddqlh Miracle Other [employer] Other Start: 62-78-9814Ohmxtt outpatient visit 15 minutes Rolando KelVerónicaG Yvonne OrthopedicsStart: 05-15-2021 End: 79-03-0122zdjjhsprljSwtftt Miracle Other [employer] Other Start: 93-06-2831Mlvabk outpatient visit 15 minutes Rolando KelVerónicaG Yvonne OrthopedicsStart: 90-45-6579Lanquu outpatient new 45 minutesJustin AlejandraG Yvonne OrthopedicsStart: 08-13-2017 End: 03-32-6508Wjgjbezlv department patient visitMICOhio State Health System Procedures DateProcedureProcedure DetailPerforming ClinicianStart: 24-80-2604Mouku conduction studies 5-6 studiesChelsea Zale DO Work Phone: Start: 15-83-5627CnmdpxqwrcbebFbvflf Lazaro comment on above:[facility] Dr. Thompsonart: 08-13-2017 Radiologic exam chest single viewMICHAEL FITZPATRICKStart: 26-30-3665SUPMKQLJAHX FITZPATRICKStart: 09-25-7321AUZCP METABOLIC PANELMICHAEL FITZPATRICKStart: 53-00-8290QKYIJ NATRIURETIC PEPTIDEMICHAE FITZPATRICKStart: 35-77-2005DIC WITH AUTO DIFFERENTIALMICHAEL FITZPATRICKStart: 81-76-5348GBUTHCE-INRMICHAEL FITZPATRICKStart: 00-18-2780MUPWXJNHNYFTWXE FITZPATRICKStart: 92-87-7892FIY 12-LEADMICHAEL FITZPATRICKStart: 90-41-5342MTGQSB PERIPHERAL IVMICHAEL FITZPATRICKStart: 17-81-6717NZCRYUBGI MONITORINGMICASCENSION ST. JOHN HOSPITALZPATRICKStart: 99-17-4953RJMKI SIGNSMICPROTESTANT HOSPITAL FITZPATRICKStart: 80-65-7824Tplfdst catheterization Catherinekateryna Willis Start: 89-24-1675Slgym arteriographyTerkateryna Willis cholecystectomyTerkateryna Willis Dilation and curettage of uterus after abortionTerkateryna Willis Plan of Treatment DateCare ActivityDetailAuthorStart: 92-76-8692Gmjymbwpt vaccinationCrystal Clinic Orthopedic Centertart: 87-31-2148QLF TESTINGHPV TESTINGCrystal Clinic Orthopedic Centertart: 2006 PAP TESTINGPAP TESTINGCrystal Clinic Orthopedic Centertart: 36-60-8641Wfmyy microalbumin profileDTAP,TDAP,TD (1 - Tdap)[facility] Centertart: 02-83-6442ZQKRXQ PCP TEAM CHRONIC DISEASE VISITANNUAL PCP TEAM CHRONIC DISEASE VISITCrystal Clinic Orthopedic Centertart: 41-47-2388HE CONTROLLED (<130/80)BP CONTROLLED (<130/80)[facility] Centertart: 62-08-6818SEWRTWQNI C SCREENINGHEPATITIS C SCREENINGCrystal Clinic Orthopedic Centertart: 81-02-3928MJA SCREENINGHIV SCREENINGCrystal Clinic Orthopedic Centertart: 96-27-9634Foiuh depression screening assessmentDEPRESSION SCREENINGCrystal Clinic Orthopedic Centertart: 49-08-3585LBVCG-19 VACCINE (#1)COVID-19 VACCINE (#1)[facility] Centertart: 62-24-3471RXEPJ-19 VACCINE (1)COVID-19 VACCINE (1)[facility] Centertart: 02-69-1080JBSLZ-19 VACCINE (#1)COVID-19 VACCINE (#1)[facility] Centertart: 11-41-8806ZFGYYNVPJ B (1 of 3 - 3-dose series)HEPATITIS B (1 of 3 - 3-dose series)[facility] End: 29-29-1261IQP(NEURO/NI)EMG(NEURO/NI) EMG Routine Right leg weakness 1 Occurrences starting 11/12/2021 until 11/12/2022[facility] Work Phone: Comment on above:1 Occurrences starting 11/12/2021 until 11/12/2022[facility] Payers DatePayer CategoryPayerPolicy [id number] [id number] 20[address] [facility] [address] [facility] [id number] 2021-Present [phone] [place] [address] [id number] [id number] 2.16.840.1.962622.52565815-79-9649Lzalfiw 1.2.840.386790.1.13.159.2.7.3.383153.47731-91-7944Frxiwg's Compensation [id number]'s Compensation2021MedicaidPARAMOUNT MEDICAID PARAMOUNT ADVANTAGE MEDICAID 2020-Present [phone] [address] [place] [address] Medicaid2021MedicaidPARAMOUNT MEDICAID PARAMOUNT [employer]VANTAGE MEDICAID [id number] 2020-Present [phone] [address] [place] [address] [id number]85-52-8458 [id number] 2.16.840.1.345821.3.579.2.732 [id number] 2.16.840.1.417892.3.57[id number] 2.16.840.1.245205.3.57[id number] 2.16.840.1.699841.3.57[id number] 2.16.840.1.183645.3.57[id number] 2.16840.1.223119.3.57[id number] 2.16840.1.580837.3.57[id number] 2.0.1.978993.3.579.[id number] 2.16840.1.071293.3.579.2.71740-07-5324Zgkkeif9269024 2.0.1.425017.3.57[id number] 2.16840.1.580476.3.57[id number] 2.0.1.905297.3.57[id number] 2.16840.1.832422.3.57[id number] 2.0.1.939293.3.57[id number] 2.16840.1.882557.3.579.2.727 [id number] 1960Unknown21- [id number] 2.1[id number] 2.16.840.1.876193.3.579.2.531Worker's [id number] [id number]-p4r7-2479-[id number]-[id number] Social History DateTypeDetailFacilityStart: 26-31-4206Jroxfxp smoking status NHISSmokes tobacco dailySt. [facility]'S Hospital End: 30-77-7350Qcynxne of tobacco useCigarette SmokerCrystal Clinic Orthopedic Centertart: 09-29-2014 End: 61-36-2619Leaukwupkg smoked current (pack per day) - Reported0.5Ctrihealth m[facility]ullough-[facility] memorial hospital ClinicStart: 09-29-2014 End: 76-24-9268Xsyalsb use and exposureSmokeless tobacco non-userCrystal Clinic Orthopedic Centertart: 03-02-2015 End: 22-36-5989Mugmnmb intakeCurrent non-drinker of alcohol (finding)[facility] Centertart: 55-59-9625Pgl Assigned At [facility]Not on fileCrystal Clinic Orthopedic Centertart: 04-03-2021 End: 13-50-6422Ixrarex smoking status NHISEx-smokerSt. [facility]'S Hospital End: 08-84-9306Yyajstw of tobacco useCurrent smokerCrystal Clinic Orthopedic Centertart: 11-02-2021 End: 73-16-3272Msingjrl to SARS-CoV-2 (event)Not [facility] Northex Assigned At [facility] Centertart: 24-99-7216Oqe Assigned At [facility], [facility] CenterTobacco smoking statusNeCleveland Clinic Foundation Clinical Notes 04-17-2021 to 07-12-2024 Note Date & JshxJwopCfluvgrp71-65-2359 Evaluation + Plan note Diagnostic Tests Pending * PAP [id number] 07/12/24 [facility] 09-06-2023 NoteSubjective Patient ID: Nabila Jewell is a 37 [...] 1 month she will likely be at [facility] and then will be released for work either with permanent restrictions or unrestricted depending upon how she feels. She has exhausted conservative care at this point. This patient was seen and examined in the presence of Dr. Cesar Escalante resident in physical medicine and rehabilitation.[facility] 02-23-2023 Note Attestation signed by Jenny [...] improve Chinedu Palacios MD Orthopedic Surgery, PGY-4 [facility] Pager: [phone] 02/23/23 2:00 PM This note was created [...] may be an additional personal documentation from me.[facility]07-17-2023 Note Attestation signed by Jenny Holley MD [...] may be an additional personal documentation from me.[facility]07-07-2023 NoteI called and spoke to the patient for a discharge follow up call following her procedure. The patient is doing well at home. She is taking ASA per orders. She denies any issues with her surgical dressing. I confirmed with the patient that she has a follow up appointment with Dr. Holley.[facility]07-06-2023 NotePatient: Nabila Jewell Procedure Summary Date: 01/01/23 Room / Location: [address] OR Anesthesia Start: 0900 Anesthesia Stop: 953 [...] were no known notable events for this encounter.[facility]07-06-2023 NoteAirway Date/Time: 01/01/2023 9:16 AM Urgency: elective Airway not difficult General Information and Staff Patient location during procedure: OR Anesthesiologist: Han Aguiar MD Resident/FORDER OPERATOR/CAA: TANO Bonner Performed: other anesthesia staff [...] approach: 1 Number of other approaches attempted: 0[facility] 01-01-2023 NotePatient: Nabila Jewell Procedure Information Date/Time: 01/01/23 0930 Procedures: KNEE ARTHROSCOPY WITH (Left: Knee) SAUCERIZATION OF DISCOID MENISCUS AND CHONDROPLASTY OF TROCHLEA (Left: Knee) Location: [facility] OR [address] [place] [address] OR Surgeons: Jenny Holley MD Echo complete W/O contrast Order: [id number] Narrative ?Left Ventricle: Systolic function is normal [...] 09:51 Last Resulted: 07/12/19 12:35 Received From: [email or web address] Result Received: 03/31/22 20:06 View Encounter ??? [...] with medical student and CAA. Additional Equipment RequestsUnMiddletown [facility]06-13-2023 Note Called to confirm appointment with dietitian scheduled for 12/10; pt request to cancel appointment at this time.[facility]06-05-2023 Note Attestation signed by Pascual Uribe MD [...] a 37 y.o. female who presents to [facility] today for [facility] post-concussion syndrome follow up HPI: Patient [...] tablet by mouth in (more content not included)...[facility] 09-29-2022 Note Attestation signed by Pascual [...] combination - Medication refill was given Erika Dmaon MS3[facility]03-20-2023 NoteOrthopedic Surgery Subjective Chief complaint: Chief Complaint Patient presents with Left Knee - Pain 09/15/22 Nabila Jewell is a 37 year old female who presents for follow up evaluation of her left knee. The pain is unchanged and she would like to undergo surgery. 08/22/2022: Conservative measures have not provided rn long term care relief, seen today with complaints of [...] L knee chondroplasty trochlea and partial lateral meniscectomyProtestant Deaconess Hospital02-23-2023 NoteOrthopedic Surgery Subjective Chief complaint: Chief Complaint Patient [...] patient's left knee was brought in from [facility] on a CD disc that was [...] not providing rn long term care relief in regard to her left knee. Refer to Dr Holley for opinion.[facility]02-08-2023 NoteAdult Nutrition Assessment Name: Nabila Jewell Date: 85 Date Of [...] Needs: Needs based on: IBW Calorie Needs: 2867-2171 kcal/day (25-30 kcal/kg) Protein Needs: 65 g/day [...] to 2000 mg/day -Wt loss 1-2 lb/wk Backend Developer Goals: -Wt loss 10% Pt scheduled follow-up appointment with RD for December 10 @ 11 am. Encouraged pt to check with insurance for coverage prior to appointment. Time Spent With Pt: 10:00 - 11:30 amUnMiddletown Hospital 07-31-2022 NoteCalled pt to confirm appointment with RD on 08/06/22. She is interested in attending appointment - fax sent to primary care physician (Dr. Urias) and requested for referral with nutrition related diagnosis.[facility]01-04-2023 NoteSubjective Patient ID: Nabila Jewell is a 36 y.o. female. Headache Leg Pain this patient is a 36-year-old female who sustained a work-related head injury. She continues with postconcussive syndrome. At her last visit we did start her on nabumetone been helping her headaches. They lessen the intensity. She continues with physical therapy here at [facility]. She has not yet been returning [...] documentation. Additional Comments: Seen on medical student todayProtestant Deaconess Hospital11-17-2022 Note Attestation signed by Rufino Perdomo MD [...] patient's left knee was brought in from [facility] on a CD disc that was [...] evaluation Sixto Durham MD PGY-4 Orthopedic Surgery [facility] By using the attestations below, the [...] may be an additional personal documentation from me.[facility]11-02-2022 Note ASSESSMENT/PLAN: Nabila was seen today for [...] a 36 y.o. female who presents to [facility] today for Workers Compensation [...] strength 5/5, R (more content not included)... [facility]11-02-2022 NoteI saw and evaluated the patient, participating in the mc portions of the service. I reviewed the resident???s note. I agree with the resident???s findings and plan. Pascual Uribe MDProtestant Deaconess Hospital10-20-2022 Note Attestation signed by Marisa Carter PhD at 04/17/2022 7:11 PM I supervised all aspects of this evaluation. [facility] - NEUROPSYCHOLOGY [address] [place] [address] Ms. Nabila Jewell was seen via [employer] and then Telephone to discuss the neuropsychological evaluation. We discussed the results, their implications, applicable diagnoses, and recommendations. All questions were answered. At this time, she is discharged from the Neuropsychology service. A copy of these results will be available to her via [facility] [employer] or through contacting the Dept. of Health Information Management ([facility]) at [phone]. Contact the Neuropsychology Clinic at [phone] with questions. Linda Topete, PhD Clinical Psychology NeuropsychologyProtestant Deaconess Hospital10-20-2022 Note Attestation signed by Marisa Carter PhD at 04/22/2022 1:40 PM I supervised all aspects of this service. 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 She recalls multiple details of events prior to arriving at work and for the first few hours of her shift. She reports that her next memory is of lying on the floor near the door to the kitchen feeling leg and head pain. She reports that she was working alone in the kitchen at the time of the fall, but that a club waiter/waitress came in to assist her and a hot dip tinning supervisor was also called, who in turn called EMS. Ms. Jewell reports she was transported to [facility] in [place], [place], and adds a few memories of [...] seen as a new patient for a [place] of Worker's Compensation claim related to concussion [...] also includes a 02/03/[address] [facility] Neurology with Chas Romero DO (Neuromuscular [...] 2020 injury. Review of medical records from [facility] on 11/12/21 indicate additional history of [...] but previously saw Dr. Carole Caba at [facility]. She reports she currently follows with Wendy Rubio CNP at [facility]. She reports no history of psychological or neuropsychological evaluation, and no history of psychiatric hospitalization. SUBSTANCE USE: Ms. Jewell reports no current use of alcohol and no history of significant alcohol use. She reports no illicit drug use (more content not included)...[facility]10-06-2022 Note Attestation signed by Rufino Perdomo MD [...] patient's left knee was brought in from [facility] on a CD disc that was [...] PGY-2 04/03/22 10:18 AM (more content not included)...[facility]10-04-2022 [id number] Nabila Jewell 1985 F Date Provider Department Center 04/01/2022 513-MARISA CARTER [facility] Medical Pavi No family history on file Reason for Visit and Comments: Concussion [102400][facility]10-04-2022 Note Attestation signed by Marisa Carter, PhD at 04/01/2022 1:03 PM I participated in and supervised all aspects of this service. REVIEWED BY: Marisa Carter, PhD, ABPP Board Certified Clinical Neuropsychologist [facility] - NEUROPSYCHOLOGY [address] [facility] [address] Ms. Nabila Jewell was seen for a neuropsychological evaluation on 04/01/2022. A report describing the results of this evaluation will be posted after the follow-up appointment is completed. Linda Topete, PhD Clinical Psychologist Neuropsychology FellowProtestant Deaconess [facility] NoteMsAubrey Jewell has a follow-up appointment on 04/17/2022 with Linda Topete, PhD & Marisa Carter PhD ABPP in Neuropsychology, to discuss the results of the evaluation on 04/01/2022. This appointment will be conducted via [employer]. [facility]08-08-2022 NoteHNO ID: [id number] Author: Chas Romero, DO Service: ? Author Type: Physician Type: Progress Notes Filed: 02/03/2022 11:27 AM Note Text: Neuromuscular Clinic Follow up Visit SERVICE DATE: 02/03/2022 PCP: Smiley Urias MD [address] [place] [phone] Reason for Evaluation: Consultation requested by Self for an opinion regarding right leg weakness Family/Friend accompanying the patient today: none HPI: This is Ms. Nabila Jewell, a 36 year old female who presents to the [facility] with the chief complaint above. 02/03/2022: [...] get up after this. She went to [facility] in [place]. She was evaluated and did testing and [...] No significant dysarthria M (more content not included)...[facility]08-08-2022 History of Present illness Narrative* Chas Romero DO - 02/03/2022 11:00 AM EDT Neuromuscular Clinic Follow up Visit SERVICE DATE: 02/03/2022 PCP: Smiley Urias MD [address] [place] [address] Reason for Evaluation: Consultation requested by Self for an opinion regarding right leg weakness Family/Friend accompanying the patient today: none HPI: This is Ms. Nabila Jewell, a 36 year old female who presents to the [facility] with the chief complaint above. 02/03/2022: She notes that she is having right leg weakness and pain still. She had an MRI of her left leg, shestarted having left leg pain. She is still [...] get up after this. She went to [facility] in [place]. She was evaluated and did testing and [...] radiculopathy, nor a large fiber sensorimotor polyneuropathy affectingthe lower extremity. OUTPATIENT MEDICATIONS Current Outpatient Medications [...] to follow with orthopedics, this pain could becompensation for the right leg pain but this [...] which included preparing to see the patient, ppjx-vb-wdxo patient care, completing clinical documentation, obtaining and/or reviewing separately obtained history, performing a medically appropriate examination, and counseling and educating the patient/family/caregiver. documented in this encounterSt. [facility]08-04-2022 Miscellaneous Notes* Telephone Encounter - Chas Romero DO - 01/30/2022 10:43 AM EDT I called patient and communicated results of EMG testing, all questions answered. Advised her that she does not need to follow up with me. Chas Romero DO documented in this encounterSt. [facility]07-28-2022 NoteHNO ID: [id number] Author: Sofi Hernandez MD Service: ? Author [...] when applicable. [facility] EMG Tech Sofi Hernandez, [facility]07-28-2022 History of Present illness Narrative* Sofi Hernandez MD - 01/23/2022 1:10 PM EDT UNIVERSAL PROTOCOL / SAFETY CHECKLIST Procedure to [...] Tech Sofi Hernandez MD documented in this encounterSt. [facility] Hospital07-19-2022 NotePROCEDURE: XR KNEE LT 4V or > HISTORY: Pain of left [...] Electronically authenticated by: PASCUAL GAMBLE Date: 2022-01-14 12:01[facility]07-06-2022 Evaluation note* Encounter Date Diagnosis Assessment Notes Treatment Notes Treatment Clinical Notes Dec, Sprain of unspecifie d site of right knee, initial encounter (ICD-10 - S83.91XA) Dec,ontusion of right knee, initial encounter (ICD-10 - S80.01XA)Nabila Jewell returns with right knee contusion. MRI [...] by neurology and I will defer all othertreatment to neurology. I will plan to see her back in 3 months if needed Continue restrictions-off work. [employer] Other 06-10-2022 Miscellaneous Notes* Telephone Encounter - Sky Dionte - 12/06/2021 11:31 AM EDT Relationship to patient: Self Reason for call (non-seizure related) Patient called asking about status of prior authorization forE order Patient of Dr. Romero documented in this encounterSt. Anthony'S Hospital05-18-2022 Evaluation note* Encounter Date Diagnosis Assessment Notes Treatment Notes Treatment Clinical Notes October, Sprain of unspecifie d site of right knee, initial encounter (ICD-10 - S83.91XA) October,ontusion of right knee, initial encounter (ICD-10 - S80.01XA)Nabila Jewell returns with right knee contusion. MRI was reviewed and negative. She has failed conservative treatment with no improvement. She has failed physical therapy with no improvement. At thisjuncture we have discussed the findings and diagnosis as well as personally reviewed appropriate imaging and performed interpretation of related testing and examination with the patient in office today. Nabila does not seem to be improving at a normal rate for the injury that has occurred. She doeshave history of chronic pain which could be [...] via the inferolateral portal, she tolerated this well.Hopefully this will give her some improvement. Continue conservative treatments. Follow-up in 8 weeks after plan from neurology is established. She has no restrictions from an orthopedic standpoint and the only reason she is unable to work is her subjective knee pain. Continue restrictions-off work. Patient was prepped and cortisone injected into the right knee joint under sterile conditions, patient tolerated well with no adverse reactions. [employer] Other 05-17-2022 NoteHNO ID: [id number] Author: Chas Romero, DO Service: ? Author Type: Physician Type: Progress Notes Filed: 11/12/2021 2:58 PM Note Text: Neuromuscular Clinic New Patient Visit SERVICE DATE: 11/12/2021 PCP: Smiley Urias MD [address] [place] [address] Reason for Evaluation: Consultation requested by Self for an opinion regarding right leg weakness Family/Friend accompanying the patient today: none HPI: This is Ms. Nabila Jewell, a 36 year old female who presents to the [facility] with the chief complaint above. She had an injury at work (March 2021)-she fell and hit her head on a prep table and fell onto her knee. She had difficulty moving to get up after this. She went to [facility] in [place]. She was evaluated and did testing and [...] Lumbar disc disease - Navicular fracture - MONQIUE (obstructive sleep apnea) SURGICAL HISTORY PAST SURGICAL [...] 4+ (giveaw (more content not included)...[facility]05-17-2022 Instructions* Patient Instructions* Chas Romero DO - 11/12/2021 2:47 PM EDT You were seen today for right leg weakness, I ordered EMG to assess for this. Continue physical therapy exercises. documented in this encounterSt. [facility]'S Hospital05-17-2022 History of Present illness Narrative* Chas Romero DO - 11/12/2021 2:00 PM EDT Neuromuscular Clinic New Patient Visit SERVICE DATE: 11/12/2021 PCP: Smiley Urias MD [address] [place] [address] Reason for Evaluation: Consultation requested by Self for an opinion regarding right leg weakness Family/Friend accompanying the patient today: none HPI: This is Ms. Nabila Jewell, a 36 year old female who presents to the [facility] with the chief complaint above. She had an injury at work (March 2021)-she fell and hit her head on a prep table and fell onto her knee. She had difficulty moving to get up after this. She went to [facility] in [place]. She was evaluated and did testing and [...] which included preparing to see the patient, ktac-tw-mzgf patient care, completing clinical documentation, obtaining and/or reviewing separately obtained history, performing a medically appropriate examination, counseling and educating the pat ient/family/caregiver and ordering medications, tests, or procedures. documented in this encounterSt. Anthony'S Hospital04-26-2022 Miscellaneous Notes* Telephone Encounter - Sky Rapp - 10/22/2021 10:54 AM EDT Referral, medical records received and scanned in for review. documented in this encounterSt. Anthony'S Hospital03-23-2022 Evaluation note* Encounter Date Diagnosis Assessment Notes Treatment Notes Treatment Clinical Notes Aug, Sprain of unspecifie d site of right knee, initial encounter (ICD-10 - S83.91XA) Continue physical therapy with approval [facility] and referral to neurology for knee weakness for second opion. Use the right knee as tolerated no restrictions. Continue off work. Aug,ontusion of right knee, initial encounter (ICD-10 - S80.01XA) Nabila Jewell returns with right knee contusion. MRI was reviewed and negative. At this juncture wekaleigh discussed the findings and diagnosis as well as personally reviewed appropriate imaging and performed interpretation of related testing and examination with the patient in office today. Nabila does not seem to be improving at a normal rate for the injury that has occurred. She does have history of chronic pain which could be leading the slow recovery. Structurally both knees sound and I willcontinue rehabbing this until she is ready for full return. She has no restrictions from an orthopedic standpoint and the only reason she is unable to work is her subjective knee pain. Continue restrictions-off work, Continue with therapy [employer] Other 01-26-2022 Evaluation note* Encounter Date Diagnosis Assessment Notes Treatment Notes Treatment Clinical Notes Jun, Contusion of right knee, initial encounter (ICD-10 - S80.01XA) Nabila Jewell returns with right knee contusion. MRI was reviewed and negative. At this juncture wekaleigh discussed the findings and diagnosis as well as personally reviewed appropriate imaging and performed interpretation of related testing and examination with the patient in office today. Nabila does not seem to be improving at a normal rate for the injury that has occurred. She does have history of chronic pain which could be leading the slow recovery. Structurally both knees sound and I willcontinue rehabbing this until she is ready for full return. She has no restrictions from an orthopedic standpoint and the only reason she is unable to work is her subjective knee pain. Continue restrictions-off work, Continue with therapy [employer] Other 12-15-2021 Evaluation note* Encounter Date Diagnosis [...] on the affected leg. Continue off work [employer] Other 11-17-2021 Evaluation note* Encounter Date Diagnosis [...] with the patient in office today. At thispoint I would get her started in physical therapy right away to get her knee motion back. She has no restrictions to the right leg. She has seen an occupational physician at [facility] who is ordered ahinged knee brace for her which I think [...] weeks therapy. Apply for for cortisone injection. [facility] Continue off work [employer] Other 10-20-2021 Evaluation note* Encounter Date Diagnosis [...] We will plan for follow-up after MRI iscomplete. Off work with limited weightbearing and use [...] will submit for an MRI approval throught [facility]. Continue off of work. Mar,OtherSee orders for this visit as documented in the electronic medical record. [employer] Other Evaluation note* Diagnosis Right leg weakness- Primary Other musculoskeletal symptoms referable to limbs [facility] [place] noteNo InformationNort [employer] Other Evaluation note* Diagnosis Right leg weakness Other musculoskeletal symptoms referable to limbs [facility] [place] note* Diagnosis Right leg weakness- Primary Other musculoskeletal symptoms referable to limbs [facility]* Diagnosis Onset Date Resolution Status Pre-employment examination [facility] Work Phone: History general Narrative - Reported* Type Description Date Medical History Chronic back pain Medical HistoryHTNMedical HistoryAnxietySurgical HistorycholecystectomySurgical HistoryC section x 2Surgical Historypilonidal cystHospitalization HistoryHTN Screen Fix [facility] [employer] Other History general Narrative - Reported* Type Description Date Medical History Chronic back pain Medical HistoryHTNMedical HistoryAnxietySurgical HistorycholecystectomySurgical HistoryC section x 2Surgical Historypilonidal cystHospitalization HistoryHTN Hospitalization Historysee surgeries Screen Fix [facility] [employer] Other Hospital course Narrative No data available for this section [facility] Hospital Discharge instructions No data available for this section [facility] Progress note No data available for this section [facility] Reason for referral (narrative)* Outpatient Procedure (Routine) - AuthorizedSpecialtyDiagnoses / ProceduresReferred By Contact Referred To ContactNEUROLOGICAL INSTITUTE Diagnoses Right leg weakness Procedures EMG(NEURO/NI) NERVE CONDUCTION STUDIES 9-10 STUDIES Chas Romero DO [facility] [place] [address] [facility] [place] [address] [place] [address] Referral IDStatusReasonStart DateExpiration DateVisits RequestedVisits [id number] Auto-Generated Referral [facility] for referral (narrative)* Reason referral for neurolo gy for weakness of the right knee and second opinion Diagnosis 1 Sprain of unspecifie d site of right knee, initial encounter (S83.91XA) Referral Organization [facility] Referring Provider First Name Rolando Referring Provider Last Name Miracle Referring Provider Specialty Orthopedic Surgery Referred Organization Unknown Facility Referred Provider Specialty Neurology Referral Priority Routine Screen Fix [facility] [employer] Other Summary Purpose Family History No Family History Records Found Relationship Condition Age at Onset Recorded Date/T laurita father Unknown Advance Directives No Advanced Directives Records Found Advance Directive Response Recorded Date/ Time Advance Directives No April 12, 2021 8:42pm Chief Complaint and Reason for Visit Chief Complaint BH Beef Ribber PhysicalReason for VisitPre-employment examination Additional Source Comments INFORMATION SOURCE (unrecogn ized section and content) DATE CREATED AUTHOR 12/18/2017 [facility] DATE CREATED AUTHOR AUTHOR'S ORGANIZ ATION 03/02/2020 [facility] DATE CREATED AUTHOR AUTHOR'S ORGANIZ ATION 03/06/2021 [facility] DATE CREATED AUTHOR AUTHOR'S ORGANIZ ATION 09/29/2021 [facility] DATE CREATED AUTHOR AUTHOR'S ORGANIZ ATION 03/06/2022 [facility] DATE CREATED AUTHOR AUTHOR'S ORGANIZ ATION 04/04/2022 [facility] DATE CREATED AUTHOR AUTHOR'S ORGANIZ ATION 08/29/2022 [facility] DATE CREATED AUTHOR AUTHOR'S ORGANIZ ATION 03/08/2023 [facility] DATE CREATED AUTHOR AUTHOR'S ORGANIZ ATION 07/22/2023 [facility] DATE CREATED AUTHOR AUTHOR'S ORGANIZ ATION 07/15/2024 [facility] DATE CREATED AUTHOR AUTHOR'S ORGANIZ ATION 07/31/2024 [facility] DATE CREATED AUTHOR AUTHOR'S ORGANIZ ATION 09/23/2024 [facility] DATE CREATED AUTHOR AUTHOR'S ORGANIZ ATION 12/15/2024 [facility] Source Comments (unrecognize d section and content) In the event this informatio n is protected by the Federal Confidentiality of Alcohol and Drug Abuse Patient Records regulations: The Federal rules restrict any use of the information to criminally investigate or prosecute any alcohol or drug abuse patient.[facility] HospitalIn the event this information is protected by the Federal Confidentiality of Alcohol and Drug Abuse Patient Records regulations: The Federal rules restrict any use of the information to criminally investigate or prosecute any alcohol or drug abuse patient.[facility] HospitalIn the event this information is protected by the Federal Confidentiality of Alcohol and Drug Abuse Patient Records regulations: The Federal rules restrict any use of the information to criminally investigate or prosecute any alcohol or drug abuse patient.[facility] HospitalIn the event this information is protected by the Federal Confidentiality of Alcohol and Drug Abuse Patient Records regulations: The Federal rules restrict any use of the information to criminally investigate or prosecute any alcohol or drug abuse patient.[facility] HospitalIn the event this information is protected by the Federal Confidentiality of Alcohol and Drug Abuse Patient Records regulations: The Federal rules restrict any use of the information to criminally investigate or prosecute any alcohol or drug abuse patient.[facility] HospitalIn the event this information is protected by the Federal Confidentiality of Alcohol and Drug Abuse Patient Records regulations: The Federal rules restrict any use of the information to criminally investigate or prosecute any alcohol or drug abuse patient.[facility] Reason for Visit (unrecogniz ed section and content) ReasonCommentsReceived Outside Medical RecordsReasonCommentsNew Patient Musculoskeletal ProblemRT lower extremitiesReasonCommentsInsurance Authorization ReasonCommentsEMGSpecialtyDiagnoses / ProceduresReferred By ContactReferred To ContactNEUROLOGICAL INSTITUTE Diagnoses Right leg weakness Procedures EMG(NEURO/NI) NERVE CONDUCTION STUDIES 9-10 STUDIES Chas Romero DO [address] [id number] [facility] [place] [address] [place] [address] Referral IDStatusReasonStart DateExpiration DateVisits RequestedVisits [id number] Auto-Generated Referral [id number]ewwShfuveowYglyotrmlwd PatientFollow Up Visit Care Teams (unrecognized sec tion and content) Team MemberRelationshipSpecialtyStart DateEnd Smiley Urias MD PCP - GeneralFamily Practice03/02/14 Serafin Bartlett, DO [address] [place] [phone] AdyssohkjCnmukndrh61/17/19 Rolando Turner, DO [address] [facility] [place] [address] ReferringOrthopedics10/11/21Team MemberRelationshipSpecialtyStart DateEnd Date Smiley Urias MD PCP - GeneralFamily Practice03/02/14 Serafin Bartlett, DO [address] [phone] GpirxufutSqkoklrfu48/17/19 Rolando Turner, DO [address] [place] [address] ReferringOrthopedics10/11/21Team MemberRelationshipSpecialtyStart DateEnd Date Smiley Urias MD PCP - GeneralFamily Practice03/02/14 Serafin Bartlett, DO [address] [phone] ZsqbjhmikHohzgxuwx14/17/19 Rolando Turner, DO [address] [place] [address] ReferringOrthopedics10/11/21 Zehra Holly, PRODUCT MARKETING INTERN [address] [place] [phone] ReferringFamily Practice11/19/21Team MemberRelationshipSpecialtyStart DateEnd Date Smiley Urias MD PCP - GeneralFamily Practice03/02/14 Serafin Bartlett, DO [address] [place] [phone] DndhfnbwhGqnvsohyr97/17/19 Rolando Turner, DO [address] [place] [address] ReferringOrthopedics10/11/21 Zehra Holly, PRODUCT MARKETING INTERN [address] [place] [facility] [address] ReferringFabaystate medical center Practice11/19/21Team MemberRelationshipSpecialtyStart DateEnd Date Smiley Urias MD PCP - GeneralFamily Practice03/02/14 Serafin Bartlett, DO [address] [place] [phone] GxspdkmgoWwvwjoilt14/17/19 Rolando Turner, DO [address] [place] [address] ReferringOrthopedics10/11/21 Zehra Holly, PRODUCT MARKETING INTERN [address] [place] [facility] [phone] ReferringFabaystate medical center Practice11/19/21 Team Status: Active Member Role Status Dates Smiley Urias MD Primary Care Provider Active Team Status: Active Member Role Status Dates Smiley Urias MD Primary Care Provider Active Start: March 25, 2024 Sandy Toribio ProviderActiveStart: March 25, 2024 Team Status: Inactive Member Role Status Dates Smiley Urias MD Primary Care Provider Active Start: April 20, 2024 End: April 20Blanquita Ibanez ProviderActiveStart: April 20, 2024 End: April 20, 2024 [...] BE BASED ON THE PRIMARY CLINICAL RECORDS. [facility]. provides no warranty or guarantee of the accuracy or completeness of information in this document.
--- OUTSIDE RECORDS SUMMARY | 2025-05-28 13:58 | XMS_ITS | Clinical Summary ---
Author Organization [employer] [facility] [address] [id number] Care Team Providers Care Pattern Lease Inspector Name Role Phone Yovani Echols MD Primary Care Provider [phone] Allergies No known active allergies Medications MedicationSigDispense QuantityRefillsLast FilledStart DateEnd DateStatus methadone (DOLOPHINE) 10 mg tablet Take 20 mg by mouth daily.Active ALPRAZolam (XANAX) 1 mg tablet Take 1 mg by mouth 2 (two) times a day. Morning and afternoon Active hydrALAZINE (APRESOLINE) 50 mg tablet Take 50 mg by mouth 3 (three) times a day. 10/06/2014ctive buPROPion XL (WELLBUTRIN XL) 300 mg 24 hr tablet Take 300 mg by mouth daily.Active ALPRAZolam (XANAX) 2 mg tablet Take 2 mg by mouth nightly as needed for anxiety or sleep.Active amitriptyline (ELAVIL) 50 mg tablet Take 50-100 mg by mouth nightly as needed for sleep.Active lisinopriL (PRINIVIL,ZESTRIL) 20 mg tablet Take 20 mg by mouth daily.07/01/2021ctive magnesium oxide (MAG-OX) 400 mg tablet Take 1 tablet by mouth 2 (two) times a day.07/01/2021ctive potassium chloride (KLOR-CON M) 20 MEQ CR tablet Take 20 mEq by mouth daily.07/01/2021ctive Active Problems ProblemNoted DateDiagnosed FjoiGzugmch20/19/2022HTN (hypertension)2OSA (obstructive sleep apnea)07/17/2021Hypertensive bdyviof0307/11/2019Chest pain 09/22/2017Adrenal zpsmxp4105/18/2015 Immunizations No known immunizations Family History Medical HistoryRelationNameCommentsDiabetesFatherHeart diseaseFatherHypertension FatherHypertensionMotherRelationNameStatusCommentsFatherMother Social History Tobacco UseTypesPacks/DayYears UsedDateSmoking Tobacco: Every DayCigarettes Smokeless Tobacco: NeverChildcareAnswerDate XshixhvvAarerqydaRfsiufo84/12/2019 EmploymentAnswerDate ErzzwiafBxppqddnyiUsfurff79/12/2019Purpose - LifeAnswerDate RecordedPurpose and direction in wqxrWozcybl87/23/2021CommentsNoSex and Gender InformationValueDate RecordedSex Assigned at BirthNot on fileLegal Sex Runnpf0302/01/2015 12:11 PM EDTGender IdentityNot on fileSexual OrientationNot on file Last Filed Vital Signs Vital SignReadingTime TakenCommentsBlood Jqmsgafa859/9607/14/2019 11:38 AM EST Emdmr164707/14/2019 9:08 AM YEXIahdkncwlxc57.4 ??C (97.6 ??F)07/14/2019 9:00 AM ESTRespiratory Aygd012107/14/2019 9:00 AM ESTOxygen Drpirheozd918%07/14/2019 9:08 AM ESTInhaled Oxygen Concentration--Epxfcd57.8 kg (202 lb 6.1 oz)07/14/2019 12:36 AM VWHHegacm264.9 cm (5' 1 )07/11/2019 11:43 PM ESTBody Mass Index38.24 07/11/2019 11:43 PM EST Plan of Treatment Health MaintenanceDue DateLast DoneCommentsDepression Gvzfnwhnm20/05/1998Tobacco Inglzvnzp92/05/1998Adult BMI Gkvkmwluv15/05/2004DTaP,Tdap and Td Vaccines (1 - Tdap)2004Pap Smear2006Influenza Ijxpmcp0902/27/2025 Goals GoalPatient Goal TypeAssociated ProblemsRecent ProgressPatient-Stated?Author Long-Term Goals Sierra Gaytan LSW Note: Evaluation of progress towards goal: pt plans to return home with family support Medical Devices Not on file Insurance Advance Directives * Full Code (Latest Code Status on File) Date ActivatedDate InactivatedComments07/12/2019 12:29 AM07/14/2019 3:20 PM Care Teams Team MemberRelationshipSpecialtyStart DateEnd Date Yovani Echols MD PCP - GeneralFamily Medicine07/12/19
--- OUTSIDE RECORDS SUMMARY | 2025-05-28 13:58 | XMS_ITS | Clinical Summary ---
Author Organization [facility] Address [address] [place] [address] Phone Care Team Providers Care Product/Industry Consultant Name Role Phone Yovani Echols MD Primary Care Provider Social History Tobacco UseTypesPacks/DayYears UsedDateSmoking Tobacco: Never Assessed CommentsUnknownSex and Gender InformationValueDate RecordedSex Assigned at Not on fileLegal FwzIcgegv70/26/2022 4:03 PM ESTGender IdentityNot on fileSexual OrientationNot on file Plan of Treatment Not on file Care Teams Team MemberRelationshipSpecialtyStart DateEnd Date Yovani Echols MD [id number] [facility] - General02/28/20
--- OUTSIDE RECORDS SUMMARY | 2025-05-28 13:58 | XMS_ITS | Clinical Summary ---
Author Organization [facility] Address [address] [place] [address] Care Team Providers Care Gear Repairer Name Role Phone Yovani Echols MD Primary Care Provider [phone] Active Problems ProblemNoted DateDiagnosed DateInternal derangement of left knee01/14/2023Left anterior knee pain01/14/2023ifficulty zblzmmg7601/14/2023S/P left knee apfglraplfw19/19/2023 Family History Medical HistoryRelationNameCommentsDiabetesFatherRelationNameStatusComments FatherMotherAlive Social History Tobacco UseTypesPacks/DayYears UsedDateSmoking Tobacco: Never Assessed Tobacco Cessation:Counseling Given: Not Answered CommentsUnknownSex and Gender InformationValueDate RecordedSex Assigned at SptuaDbsrne67/19/2023 7:50 PM EDTLegal BhaFyjqwv74/15/2023 6:37 PM EDTGender PbkbxgppHvorui76/19/2023 7:50 PM EDTSexual OrientationNot on file Plan of Treatment Not on file Insurance Care Teams Team MemberRelationshipSpecialtyStart DateEnd Date [facility]ols [facility]
--- OUTSIDE RECORDS SUMMARY | 2025-05-28 13:58 | XMS_ITS | Clinical Summary ---
Author Organization [facility] Address [address], [address] [place] [address] Care Team Providers Care Ammonia Distiller Name Role Phone Yovani Echols MD Primary Care Provider [phone] Allergies No known active allergies Medications MedicationSigDispense QuantityRefillsLast FilledStart DateEnd DateStatus cloNIDine (CATAPRES) 0.1 MG tablet Take 0.1 mg by mouth 2 times dailyActive hydrALAZINE (APRESOLINE) 10 MG tablet Take 50 mg by mouth 2 times dailyActive oxyCODONE (ROXICODONE) 5 MG immediate release tablet Take 20 mg by mouth every 6 hours as needed for PainActive morphine (LUANA) 30 MG SR capsule Take 30 mg by mouth 3 times dailyActive losartan (COZAAR) 25 MG tablet Take 25 mg by mouth dailyActive spironolactone (ALDACTONE) 25 MG tablet Take 25 mg by mouth dailyActive carvedilol (COREG) 3.125 MG tablet Take 3.125 mg by mouth dailyActive promethazine (PHENERGAN) 25 MG tablet Take 25 mg by mouth every 6 hours as needed for NauseaActive ibuprofen (ADVIL;MOTRIN) 800 MG tablet Take 1 tablet by mouth every 6 hours as needed for Pain 120 tablet ctive Active Problems ProblemNoted DateDiagnosed DateChest wall pain08/13/2017Anxiety state08/13/2017 Social History Tobacco UseTypesPacks/DayYears UsedDateSmoking Tobacco: Every DayCigarettes Alcohol UseStandard Drinks/WeekCommentsNo0 (1 standard drink = 0.6 oz pure alcohol)CommentsUnknownSex and Gender InformationValueDate RecordedSex Assigned at BirthNot on fileLegal SjmTcygro86/10/2013 12:33 PM ESTGender IdentityNot on fileSexual OrientationNot on file Last Filed Vital Signs Vital SignReadingTime TakenCommentsBlood Dnpefxpc339/8908/13/2017 1:00 PM EST Iixim884808/13/2017 1:00 PM IFUNahlbfflkkw82.7 ??C (98.1 ??F)12/27/2014 10:01 AM EDTRespiratory Cdnf901008/13/2017 1:00 PM ESTOxygen Yotrvkdscu04%08/13/2017 1:00 PM ESTInhaled Oxygen Concentration--Mswsbh00.6 kg (202 lb)08/13/2017 11:20 AM XWSSpuvhm716.9 cm (5' 1 )08/13/2017 11:20 AM ESTBody Mass Index38.17008/13/2017 11:20 AM EST Plan of Treatment Not on file Insurance Care Teams Team MemberRelationshipSpecialtyStart DateEnd Date Yovani Echols MD [address] [place] [address] [facility]13/17
--- OUTSIDE RECORDS SUMMARY | 2025-05-28 13:58 | XMS_ITS | Patient Health Record ---
Author Organization [facility] Address [address] [place] [address] Care Team Providers Care Thread Machine Operator Name Role Phone Dr. Dwaine Bates Primary Care Provider MatiCathy Unavailable [phone] Nabila Villalba Unavailable [phone] Ariane Virgen Unavailable [phone] Reason For Referral No Information Medications Medication SIG (Take, Route, Frequency, Duration) Notes Start Date End Date Status Ibuprofen 800 MG Tablet 1 tablet with fo od or milk as needed Orally Three times a day 2ActiveIbuprofen 800 MG Tablet1 tablet with food or milk as needed Orally Three times a day3ActiveIbuprofen 800 MG Tablet1 tablet with food or milk as needed Orally Three times a day1Active Problems Problem Type SNOMED Code ICD Code Onset Dates Problem Status W/U Status Risk Notes Problem Information temporarily unavaila ble Dental caries on pit and fissure surface penetrating into dentin (K02.52) Activeconfirmed Encounters Encounter Location Date Provider Diagnosis [facility] [address] [place] [address] 06/02/2024 Dwaine Bates Encounter for dental examination and cleaning with abnormal findings Z01.21 [facility] [address] [place] [address] 06/28/2024 Dwaine Bates Encounter for dental examination and cleaning with abnormal findings Z01.21 [facility] [address] [place] [address] 09/16/2024 Dwaine Bates Assessments Encounter Date Diagnosis (ICD Code) Assessment Notes Treatment Notes Treatment Clinical Notes Section Notes 06/02/2024 Encounter for dental examination and cleaning with abnormal findings (ICD-10 - Z01.21) 06/28/2024Encounter for dental examination and cleaning with abnormal findings (ICD-10 - Z01.21) Plan Of Treatment No Information Insurance Providers Payer Name Payer Address Payer Phone Subscriber Number Group Number Insured Name Patient Relationship to Insured Coverage Start Date Coverage End Date Wrap [facility] [place] [employer] [address] [place] [address] [id number] NABILA OWENS Self - patient is the insured 3 [address] [employer] [place] [employer] [address] [address] [place] [address] [id number] NABILA OWENS Self - patient is the insured 3 Dental Wrap [facility] [employer] [address] [place] [phone] [id number] OWENSSelf - patient is the [id number] 2022
--- OUTSIDE RECORDS SUMMARY | 2025-05-28 13:59 | XMS_ITS | Patient Health Record ---
Author Organization [facility] Address [address] [place] [address] Care Team Providers Care Museum Attendant Name Role Phone Yovani Echols Primary Care Provider Dario Phipps Unavailable [phone] Allergies Allergen (clinical drug ingredient) Drug/Non Drug Allergy documented on EMR Reaction Allergy Type Onset Date Status Information temporarily unavailable erythromycin Unknown Drug Allergy Active Reason For Referral No Information Medications Medication SIG (Take, Route, Frequency, Duration) Notes Start Date End Date Status lisinopril ActivemethadoneActiveXanaxActive Social History Tobacco Use: Social History Observation Description Date Details (start date - stop date) Never Smoker NA - NA AUDIT-C (Standard) Question Answer Notes Did you have a drink containing alcohol in the p ast year? 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
--- OUTSIDE RECORDS SUMMARY | 2025-05-28 13:59 | XMS_ITS | Clinical Summary ---
Author Organization [facility] Address [address] [facility] [address] [place] [address] Care Team Providers Care Washroom Attendant Name Role Phone Unavailable Primary Care Provider Unavailabl e Source Comments The following information is NOT included in Care Everywhere downloads:Psychiatric notes, ECG results, Cardiac Rehab notes, Pulmonary Function notes, data from SmartForms (includes but not limited toPregnancy data,audiograms, eye exams, pre-surgical evaluation notes, well-child exam data).[facility] Immunizations ImmunizationAdministration DatesNext DueTd (adult), 5 Lf tetanus toxoid, preservative free, adsorbed (RDT=706)02/12/2018 Social History Tobacco UseTypesPacks/DayYears UsedDateSmoking Tobacco: Never Assessed CommentsUnknownSex and Gender InformationValueDate RecordedSex Assigned at Not on fileLegal SyrKhgvpw51/29/2022 1:59 PM EDTGender IdentityNot on fileSexual OrientationNot on file Plan of Treatment Health MaintenanceDue DateLast DoneCommentsMammography (shared decision-making, age 35-39)1985HIV Test2000Hepatitis C Geursvhh79/05/2004Tdap Booster 09/01/2003Hepatitis A (HAV) Vaccine (optional start 19+ years)2004 Hepatitis B (HBV) Vaccine (1 of 3 - 19+ 3-dose series)2004Pap Smear 2006HPV Vaccine (optional start 27-45 years)2012COVID-19 Vaccine ( - 2024- season)2025Influenza Vaccine (#1)2025Tetanus (Td or Tdap) Qjsidai82Shingles (RZV) Vaccine (1 of 2)09/01/2035Mammography DiscontinuedPneumococcal Vaccine(s)Aged OutNo longer eligible based on patient's age to complete this topic
--- OUTSIDE RECORDS SUMMARY | 2025-05-28 13:59 | XMS_ITS | Patient Health Record ---
Author Organization [facility] in [place] Address [address] [place] [address] Care Team Providers Care Professor Of Rhetoric Name Role Phone Simon Urias Primary Care Provider Allergies Allergen (clinical drug ingredient) Drug/Non Drug Allergy documented on EMR Reaction Allergy Type Onset Date Status Information temporarily unavailable Erythromycin anaphylax is Drug Allergy Active Results Component Value Reference Range Notes FREE T3 Reviewed date:06/02/2024 03:46:10 PM Interpretation: Performing Lab: Notes/Report: [facility] , Free T3 2.30 2.18-3.98 pg/mL Performing Lab:see [facility] LBGLYCOHEMOGLOBIN A1C Reviewed date:06/02/2024 03:46:10 PM Interpretation: Performing Lab: Notes/Report: [facility] ,Glycohemoglobin A1C5.84.5-6.2 % ACTION SUGGESTED ADA THERAPEUTIC TARGET < 7.0 ADA RECOMMENDED LIMIT 4.0 - 6.0 > 7.0 Estimated Average Obouihn166Zxzuezhfvx Lab:see note - [facility] LB IRON Reviewed date:06/02/2024 03:46:10 PM Interpretation: Performing Lab: Notes/Report: [facility] ,Iron70.050.0-170.0 ug/dLPerforming Lab:see [facility] LB LIPID PROFILE Reviewed date:06/02/2024 03:46:10 PM Interpretation: Performing Lab: Notes/Report: [facility] ,Cbmmuivpitrpa85<=150 mg/gOIdqxgjrthxa278<=200 mg/dLHDL Rmrqpclkoas4590-12 mg/dL <40 mg/dl - HIGH CARDIOVASCULAR RISK > or =60 mg/dl - LOW CARDIOVASCULAR RISK LDL Cholesterol Bcmsfidcsk80.0 130-159 mg/dl BORDERLINE HIGH 100-129 mg/dl NEAR OR ABOVE OPTIMAL >190 mg/dl VERY HIGH 160-189 mg/dl HIGH <100 mg/dl OPTIMAL VLDL CHOLESTEROL9.0Chol HDL Ratio2.5 >11.0 HIGH RISK 3.3 - 4.4 LOW RISK 7.1 - 11.0 MODERATE RISK 4.4 - 7.1 AVERAGE RISK Performing Lab:see noteML - [facility] LBPROF 14(COMP METB) Reviewed date:06/02/2024 03:46:10 PM Interpretation: Performing Lab: Notes/Report: [facility] ,Atdvng873646-299 mmol/LPotassium4.73.5-5.1 mmol/QRynvdeci88505-539 mmol/LCarbon Dllruce08.121.0-32.0 mmol/LAnion Gap8.9Ebrfylo0584-575 mg/dLBlood Urea Nitrogen 23.07.0-18.0 mg/dLCreatinine1.030.55-1.02 mg/dLEstimated GFR ( Elizabeth>60 >=60 mL/min/1.73m 2Estimated GFR (Non- Ame60>=60 mL/min/1.73m 2BUN Creatinine Ratio22.6Dumpnmk5.28.5-10.1 mg/dLBilirubin Total0.40.2-1.0 mg/dL Aspartate Amino Vnvgkfokvqn7587-45 U/LAlanine Gdhjlmoxihysqrxt3315-58 U/L Alkaline Ucvssyukaad25282-840 U/LTotal Protein7.76.4-8.2 g/dLAlbumin Level3.3 3.4-5.0 g/dLGlobulin4.4Albumin Globulin Ratio0.8Performing Lab:see note - [facility] LBT4 Reviewed date:06/02/2024 03:46:10 PM Interpretation: Performing Lab: Notes/Report: [facility] ,T4 Thyroxine7.204.80-13.90 ug/dLPerforming Lab:[facility] LBTSH Reviewed date:06/02/2024 03:46:10 PM Interpretation: Performing Lab: Notes/Report: [facility] ,Thyroid Stimulating Hormone0.8550.358-3.740 uIU/mLPerforming Lab:see note - [facility] LBGLYCOHEMOGLOBIN A1C Reviewed date:09/20/2024 12:09:49 PM Interpretation: Performing Lab: Notes/Report: [facility] ,Glycohemoglobin A1C5.54.5-6.2 % > 7.0 ADA RECOMMENDED LIMIT 4.0 - 6.0 ADA THERAPEUTIC TARGET < 7.0 ACTION SUGGESTED Estimated Average Unnmgqb278Tjpjlrrupn Lab:see note - [facility] LB RUBELLA AB IGG Reviewed date:09/21/2024 10:57:26 AM Interpretation: Performing Lab: Notes/Report: [facility] ,Rubella Antibodies, IgG2.02Immune >0.99 index Non-immune <0.90 Immune >0.99 Equivocal 0.90 - 0.99 [facility]forming [facility] LBType and Screen Reviewed date:09/20/2024 12:09:49 PM Interpretation: Performing Lab: Notes/Report: [facility] ,Blood TypeO PositiveAntibody ScreenNEGATIVEHIV Ab/p24 Ag with Reflex Reviewed date:09/21/2024 10:57:26 AM Interpretation: Performing Lab: Notes/Report: [facility] ,HIV Ab/p24 Ag ScreenNon ReactiveNon Reactive Performed at: [address] [id number] HIV-1/HIV-2 antibodies and HIV-1 p24 antigen were NOT detected. There is no laboratory evidence of HIV infection. Switcher: Júnior Rosario PhD, Phone: [phone] HIV Negative Performing [facility] LBAcute Hepatitis Reviewed date:09/21/2024 10:57:26 AM Interpretation: Performing Lab: Notes/Report: [facility] ,Hep A Ab, IgMNegativeNegative A negative anti-HAV IgM result suggests no recent or current HAV infection. HBsAg ScreenNegativeNegativeHep B Core Ab, IgMNegativeNegativeHCV AbNon Reactive Non ReactiveInterpretation:Comment. infection. suspected (which may be delayed in an immunocompromised individual), or other evidence exists to indicate HCV Not infected with HCV unless early or acute infection is Performing Lab:[facility] LBUS pelvis transvaginal Reviewed date:09/22/2024 07:32:35 PM Interpretation: Performing Lab: Notes/Report: Source Facility: [address] [address] Ultrasound Report Signed Patient: NABILA OWENS MR#: [id number] : 1985 Acct:[id number] Age/Sex: 39 / F ADM Date: 09/22/24 Loc: US Attending Dr: Yovani Urias M.D. Ordering Physician: Yovani Urias M.D. Date of Service: 09/22/24 Procedure(s): US pelvis transvaginal Accession Number(s): [id number] cc: Yovani Urias M.D. [place] [address] Patient Name: NABILA OWENS MRN: [id number] date: 1985 Sex: F Assigned Patient Location: US Current Patient Location: US Accession/Order Number: [id number] Exam Date: 09/22/2024 11:42 Report Date: 09/22/2024 11:45 At the request of: YOVANI URIAS MD Procedure: US pelvis transvaginal TRANSABDOMINAL AND TRANSVAGINAL PELVIC ULTRASOUND HISTORY: Abnormal uterine bleeding. Hematuria. Negative test. COMPARISON: 05/20/2024 FINDINGS: The uterus measures 8.0 x 4.7 x 4.2 cm. No uterine lesion identified. The endometrium has a total combined thickness of 5mm. The RIGHT ovary not visualized. LEFT ovary measures 2.3 x 1.2 x 3.1 cm. Bilateral ovarian blood flow identified. No free fluid identified. There is no adnexal mass identified. US/US pelvis transvaginal IMPRESSION: Unremarkable transabdominal and transvaginal pelvic ultrasound Impression dictated by: Gordy Gomez M.D.09/22/2024 11:45 AM Dictation Location: [place] [address] Electronically authenticated by: [id number] Y Date: 09/22/2024 11:45 Dictated By: Gordy Gomez D.O. Signed By: 09/22/24 1148 DD/ 1145 TD/TT: [employer]electron[employer] Assembler:CBC AUTO DIFF Reviewed date:09/20/2024 12:09:49 PM Interpretation: Performing Lab: Notes/Report: [facility] ,White Blood Count7.84.0-11.0 10 3/uLRed Blood Count4.474.20-5.40 10 6/uL Oqogakwjcq34.312.0-16.0 g/xWFelfjzprgp56.436.0-48.0 %Mean Corpuscular Tgydok65.4 81.0-99.0 fLMean Corpuscular Wogmxkdboy84.826.7-34.0 pgMean Corpuscular HGB Conc 32.929.9-35.2 g/dLRed Cell Distribution Width12.111.0-15.0 %Platelet Peuub601 150-450 10 3/uLMean Platelet Volume8.59.5-13.5 fLNeutrophils Percent Auto57.7 43.0-75.0 %Lymphocytes Percent Auto36.020.5-60.0 %Monocytes Percent Auto5.11.7- 12.0 %Eosinophils Percent Auto0.50.9-7.0 %Basophils Percent Auto0.40.2-2.0 % Immature Granulocytes Pct Auto0.30.0-0.5 %Neutrophils Absolute Auto4.51.4-6.5 10 3/uLLymphocytes Absolute Auto2.81.2-3.8 10 3/uLMonocytes Absolute Auto0.40.3-0.8 10 3/uLEosinophils Absolute Auto0.00.0-0.7 10 3/uLBasophils Absolute Auto0.00.0- 0.1 10 3/uLImmature Granulocytes Abs Auto0.020.00-0.03 10 3/uLPerforming Lab:see noteML - [facility] LBINSULIN Reviewed date:06/03/2024 04:22:14 PM Interpretation: Performing Lab: Notes/Report: [facility] ,Uoddwng31.02.6-24.9 uIU/mL Performed at: - [facility] [id number] Switcher: Júnior Rosario PhD, Phone: [phone] Performing Lab:see note - [facility] LBCBC AUTO DIFF Reviewed date:06/02/2024 12:53:34 PM Interpretation: Performing Lab: Notes/Report: [facility] ,White Blood Count6.84.0-11.0 10 3/uLRed Blood Count4.524.20-5.40 10 6/uL Qlqauvrxzh44.212.0-16.0 g/pYTlkaninoxi90.736.0-48.0 %Mean Corpuscular Szmtvf57.0 81.0-99.0 fLMean Corpuscular Mzftvgxzwr11.226.7-34.0 pgMean Corpuscular HGB Conc 32.429.9-35.2 g/dLRed Cell Distribution Width12.211.0-15.0 %Platelet Jdchb491 150-450 10 3/uLMean Platelet Volume8.39.5-13.5 fLNeutrophils Percent Auto71.3 43.0-75.0 %Lymphocytes Percent Auto24.220.5-60.0 %Monocytes Percent Auto3.71.7- 12.0 %Eosinophils Percent Auto0.40.9-7.0 %Basophils Percent Auto0.30.2-2.0 % Immature Granulocytes Pct Auto0.10.0-0.5 %Neutrophils Absolute Auto4.91.4-6.5 10 3/uLLymphocytes Absolute Auto1.71.2-3.8 10 3/uLMonocytes Absolute Auto0.30.3-0.8 10 3/uLEosinophils Absolute Auto0.00.0-0.7 10 3/uLBasophils Absolute Auto0.00.0- 0.1 10 3/uLImmature Granulocytes Abs Auto0.010.00-0.03 10 3/uLPerforming Lab:see noteML - [facility] LBRapid Plasma Reagin, Quant Reviewed date:09/21/2024 01:43:19 PM Interpretation: Performing Lab: Notes/Report: [facility] ,Rapid Plasma Reagin, QuantNon ReactiveNonRea<1:1 titer Performed at: - [facility] Gee infection, a reflex cascade that includes both RPR and a Rapid Plasma Reagin (RPR) Test With Reflex to Quantitative screening and diagnosis of syphilis. This test is [address] [place] [phone] ([id number]). Treponema pallidum (Syphilis) Screening [place] ([id number]) or treated for syphilis infection. To screen for syphilis Please Note: This test does not meet current guidelines for treponema-specific assay should be utilized, such as RPR and Confirmatory Treponema pallidum Antibodies intended for following treatment response in patients being Switcher: Júnior Rosario PhD, Phone: [phone] Performing Lab:see [facility] LBProgesterone Reviewed date:09/21/2024 01:43:19 PM Interpretation: Performing Lab: Notes/Report: [facility] ,Progesterone0.4. ng/mL Second trimester 25.4 - 83.3 Performed at: [facility] Switcher: Júnior Rosario PhD, Phone: [phone] Follicular phase 0.1 - 0.9 Postmenopausal 0.0 - 0.1 First trimester 11.0 - 44.3 Ovulation phase 0.1 - 12.0 [address] [place], [place] [id number] Third trimester 58.7 - 214.0 Luteal phase 1.8 - 23.9 Performing Lab:see [facility] LBPROF 14(COMP METB) Reviewed date:09/20/2024 12:09:49 PM Interpretation: Performing Lab: Notes/Report: [facility] ,Vdjvdm592749-941 mmol/LPotassium4.03.5-5.1 mmol/REjdjsead33760-882 mmol/LCarbon Ulcezfa12.921.0-32.0 mmol/LAnion Gap12.7Mihpjto39147-903 mg/dLBlood Urea Ltucxoeh25.07.0-18.0 mg/dLCreatinine0.920.55-1.02 mg/dLEstimated GFR ( Elizabeth>60>=60 mL/min/1.73m 2Estimated GFR (Non- Elise>60>=60 mL/min/1.73m 2BUN Creatinine Ratio19.4Uoqzazm9.08.5-10.1 mg/dLBilirubin Total0.20.2-1.0 mg/dL Aspartate Amino Tvzvfzcgtyf2295-34 U/LAlanine Wszjcmycnrquehce0623-60 U/L Alkaline Qqskjeozblh67101-323 U/LTotal Protein7.36.4-8.2 g/dLAlbumin Level3.2 3.4-5.0 g/dLGlobulin4.1Albumin Globulin Ratio0.8Performing Lab:see noteML - [facility] LBPREG QUANT HCG Reviewed date:09/20/2024 12:09:49 PM Interpretation: Performing Lab: Notes/Report: [facility] ,HCG Quantitative<1 15,000-200,000 6-8 WEEKS 5-50 0.2-1 WEEK 10,000-100,000 5-6 WEEKS 50-500 1-2 WEEKS 100-5,000 2-3 WEEKS 10,000-100,000 2-3 MONTHS 500-10,000 3-4 WEEKS 1,000-50,000 4-5 WEEKS Performing Lab:see noteML - [facility] LB Reason For Referral No Information Medications Medication SIG (Take, Route, Frequency, Duration) Notes Start Date End Date Status Lisinopril 20 MG 1 tablet Orally Once a day; Dur ation: 90 days ActiveALPRAZolam 0.5 MG 1 tablet Orally TID; Duration: 30 days As needed - F41.9 5ActivePotassium Chloride Shelli ER 20 MEQ1 tablet Orally Once a day; Duration: 90 daysActiveFerrous Sulfate 325 (65 Fe) MG1 tablet Orally DailyActive Methadone HCl 10 MG/5ML45 ml Orally ONCE DAILYActiveMagnesium Oxide 400 (240 Mg) MG1 tablet Orally Once a day; Duration: 90 daysActive Social History Tobacco Use: Social History Observation Description Date Details (start date - stop date) Former Smoker NA - 07/29/2018 Tobacco Use/Smoking Question Answer Notes Patient is a former smoker When did you stop smoking?07/29/2018How long has it been since you last smoked? 1-5 yearsAlcohol Screen (Audit-C) Question Answer Notes Did you have a drink containing alcohol in the p ast year? No Qsalms6QkyvoenjrsaasyAmywepivPHXPG-G (Standard) Question Answer Notes Did you have a drink containing alcohol in the p ast year? No Vtzjcj1ItnzdtnduhuzarZyrmdquv Problems Problem Type SNOMED Code ICD Code Onset Dates Problem Status W/U Status Risk Notes Problem Information temporarily unavailable Hypom agnesemia (E83.42) ActiveconfirmedProblemInformation temporarily unavailableAcute recurrent frontal sinusitis (J01.11)ActiveconfirmedProblemInformation temporarily unavailable Furuncle of abdominal wall (L02.221)ActiveconfirmedProblemInformation temporarily unavailableOther chest pain (R07.89)ActiveconfirmedProblem Information temporarily unavailableLeft lower quadrant pain (R10.32)Active confirmedProblemInformation temporarily unavailablePuncture wound without foreign body of right breast, initial encounter (S21.031A)ActiveconfirmedProblem Information temporarily unavailablePsoriasis (L40.9)ActiveconfirmedProblem Information temporarily unavailableMorbid obesity (E66.01)ActiveconfirmedProblem Information temporarily unavailableHypertension (I10)ActiveconfirmedProblem Information temporarily unavailableAnxiety (F41.9)ActiveconfirmedProblem Information temporarily unavailableSleep apnea (G47.30)ActiveconfirmedProblem Information temporarily unavailableObstructive sleep apnea (G47.33)Active confirmedProblemInformation temporarily unavailableEczema (L30.9)Activeconfirmed ProblemInformation temporarily unavailableMigraine (G43.909)Activeconfirmed ProblemInformation temporarily unavailableFoot pain, left (M79.672)Active confirmedProblemInformation temporarily unavailableAcute sinusitis (J01.90) ActiveconfirmedProblemInformation temporarily unavailableWell adult (Z00.00) ActiveconfirmedProblemInformation temporarily unavailableDysphagia (R13.10) ActiveconfirmedProblemInformation temporarily unavailableBoil (L02.92)Active confirmedProblemInformation temporarily unavailableKnee pain, left (M25.562) ActiveconfirmedProblemInformation temporarily unavailableDDD (degenerative disc disease), cervical (M50.30)ActiveconfirmedProblemInformation temporarily unavailableAdrenal adenoma (D35.00)ActiveconfirmedProblemInformation temporarily unavailableContact dermatitis (L25.9)ActiveconfirmedProblemInformation temporarily unavailableStrep pharyngitis (J02.0)ActiveconfirmedProblem Information temporarily unavailableOver weight (E66.3)ActiveconfirmedProblem Information temporarily unavailableLeft arm pain (M79.602)ActiveconfirmedProblem Information temporarily unavailableDysfunctional uterine bleeding (N93.8)Active confirmedProblemInformation temporarily unavailableAcute gastroenteritis (K52.9) ActiveconfirmedProblemInformation temporarily unavailableHand cramps (R25.2) ActiveconfirmedProblemInformation temporarily unavailablePain in finger of left hand (M79.645)ActiveconfirmedProblemInformation temporarily unavailablePain in joint, ankle and foot, left (M25.572)ActiveconfirmedProblemInformation temporarily unavailableBreast hematoma (N64.89)ActiveconfirmedProblemInformation temporarily unavailableAdenoma, adrenal cortical (D35.00)ActiveconfirmedProblem Information temporarily unavailableHypertensive urgency (I16.0)Activeconfirmed ProblemInformation temporarily unavailableUnspecified dyspareunia (N94.10)Active confirmedProblemInformation temporarily unavailablePatellar pain, right (M25.561)ActiveconfirmedProblemInformation temporarily unavailableKnee internal derangement, unspecified laterality (M23.90)ActiveconfirmedProblemInformation temporarily unavailableBreast mass (N63.0)ActiveconfirmedProblemInformation temporarily unavailableUnspecified lump in the right breast, upper outer quadrant (N63.11)ActiveconfirmedProblemInformation temporarily unavailableBoil, back (L02.222)ActiveconfirmedProblemInformation temporarily unavailableLow back pain, unspecified (M54.50)Activeconfirmed Vital Signs Temperature 98.6 degrees Fahrenheit 07/06/2024 Blood pressure pgaopoxqj09 mm Hg12/05/20240482Dbmmtb73 in12/05/2024lood pressure twppgzty552 mm Hg12/05/20245963Ldyufa224.2 lbs12/05/2024BMI44.25 kg/m212/05/2024 Encounters Encounter Location Date Provider Diagnosis [facility] [address] [place] [address] 06/02/2024 Simon Urias [facility] [place] [address] 06/16/2024michell [facility] [place] [address]/25/2025Simon [facility] [facility] [place] [address]/[facility] [facility] [place] [address]/Doug [facility] [facility] [place] [address]/07/2024Doug [facility] [facility] [place] [address]/ Simon HoyHypertension W48DdhzecrKit [facility] [facility] [place] [address]/01/2025Doug HoyHypertension I10[facility] [facility] [place] [address]/Doug HoyHypertension A01LpjanvhKit [facility] Hospital[address] [place] [facility] [place] [address] 12/02/2024Doug HoyHypertension H20OxyrkwnKit [facility] Hospital[address] [place] [place] [address]/02/2025Doug [facility] [address] [facility] [place] [address]/09/2024Doug HoyAnxiety F41.9BSan [facility] [place] [place] [address]/01/2025 Simon HoyAcute bronchitis, unspecified organism J20.9BSan [facility] [facility] [place] [address]/oug Hoy Hypertension I10 ; Morbid obesity E66.01 and Sleep apnea G47.30[facility] [place] [place] [address]/Doug Hoy Dysfunctional uterine bleeding N93.8BSan [facility] [place] [place] [address]/07/2024Doug HoyHypertension I10 ; Obstructive sleep apnea G47.33 and Anxiety F41.9BSan [facility] [place] [address]/01/2025Doug HoyHypomagnesemia E83.42 ; Hypertension I10 and Sleep apnea G47.30[facility] [place] [address]/Doug HoyHypomagnesemia E83.42 ; Hypertension I10 and Obstructive sleep apnea G47.33[facility] [place] [address]/02/2025Doug HoyAnxiety F41.9 Assessments Encounter Date Diagnosis (ICD Code) Assessment Notes Treatment Notes Treatment Clinical Notes Section Notes 06/02/2024 Hypertension (ICD-10 - I10) 06/02/2024Morbid obesity (ICD-10 - E66.01)5Acute bronchitis, unspecified organism (ICD-10 - J20.9)Rest and drink more liquids, especially water. You may use a humidifier or vaporizer to help keep the drainage moist. Gcij-wba-rqpmxtg Nasal Saline may help the stuffy and runny nose. Use Ibuprofen and or Tylenol as needed for fever, chills, body aches or pain. Children 5 years old should not be given uybw-gos-nuokaoq cough and cold medications such as guaifenesin and dextromethorphan. If you're over age 5, you may try bpbu-fnr-okafzlt cold medications such as guaifenesin and dextromethorphan, or multi-symptom cold reliever such as Dayquil to help reduce the symptoms. Antibiotics have been prescribed. You should take these until completed and follow the directions. Antibiotics can sometimescause upset stomach, and in rare cases, serious allergic reactions or serious gastrointestinal problems. If you start having severe abdominal pain, severe vomiting, or bloody diarrhea, you should be reevaluated by your physician or urgent care immediately. Follow up with your Primary Care Provider or return to clinic if symptoms do not improve within 3-5 days. If you develop severe symptoms such as shortness of breath, repeated vomiting, coughing up blood, or chest pain you should go to the [facility] room or call [phone] uterine bleeding (ICD-10 - N93.8) 09/28/2024Hypertension (ICD-10 - I10)09/28/2024Obstructive sleep apnea (ICD-10 - G47.33)12/05/2024nxiety (ICD-10 - F41.9)disucsse dneed for bumped up dose prn fo rne couple months with travelin [place] pr[place] with trip10/04/2024Hypomagnesemia (ICD-10 - E83.42)10/04/2024Hypertension (ICD-10 - I10)blood pressure good rchyyak4710/12/2024Hypomagnesemia (ICD-10 - E83.42)10/12/2024Hypertension (ICD-10 - I10)10/19/2024Hypertension (ICD-10 - I10)11/03/2024Hypertension (ICD-10 - I10) 11/16/2024Hypertension (ICD-10 - I10)12/02/2024Hypertension (ICD-10 - I10) 5Anxiety (ICD-10 - F41.9)10/12/2024Obstructive sleep apnea (ICD-10 - G47.33)10/04/2024Sleep apnea (ICD-10 - G47.30)09/28/2024nxiety (ICD-10 - F41.9) change to xanax for easier taper - cant fill till lvwbwr7406/02/2024Sleep apnea (ICD-10 - G47.30) Plan Of Treatment Pending Test Test Name Order Date CMP (COMPLETE METABOLIC PANEL) 3 CMP (COMPLETE METABOLIC PANEL) 4 CMP (COMPLETE METABOLIC PANEL) 4 HEMOGLOBIN A1C (GLYCO) 07/21/2023 HEMOGLOBIN A1C (GLYCO) 06/02/2024 HEMOGLOBIN A1C (GLYCO) 01/20/2023 IRON, TOTAL 01/20/2023 IRON, TOTAL 07/21/2023 IRON, TOTAL 06/02/2024 LIPID PANEL (CHOL/TRIG/HDL/LDL) 06/02/20 24 LIPID PANEL (CHOL/TRIG/HDL/LDL) 07/21/19 24 LIPID PANEL (CHOL/TRIG/HDL/LDL) 01/21/20 23 CBC WITH DIFF (EXP 04/2025) 01/20/2023 CBC WITH DIFF (EXP 04/2025) 07/21/2023 CBC WITH DIFF (04/2025) 06/02/2024 VITAMIN D, 25 LEVEL (TOTAL) 07/21/2023 US Lower Extremity LT 01/20/2023 US Lower Extremity RT 01/20/2023 US Soft Tissue Neck/Head 11/26/2022 RHEUMATOID PANEL 08/17/2023 Insulin Level 07/21/2023 Insulin Level 01/20/2023 Insulin Level 06/02/2024 Barium Swallow - Modified 11/26/2022 CBC W/AUTO DIFF 03/05/2023 US Upper Ext Nonvascular Complete RT BNP 01/20/2023 CBC AUTO DIFF 08/17/2023 FERRITIN 03/05/2023 IRON 03/05/2023 MAGNESIUM 08/17/2023 MAGNESIUM 01/20/2023 PROF 14(COMP METB) 08/17/2023 SED RATE WESTERGREN 08/17/2023 MRI KNEE RT WO CON 03/07/2024 US PELVIS 05/17/2024 US PELVIS AND TRANSVAG 09/21/2024 THYROID PANEL (T4/TSH/FREE T3) 4 THYROID PANEL (T4/TSH/FREE T3) 4 THYROID PANEL (T4/TSH/FREE T3) 4 THYROID PANEL (T4/TSH/FREE T3) 3 MM diagnostic mammo BI 02/23/2024 Insurance Providers Payer Name Payer Address Payer Phone Subscriber Number Group Number Insured Name Patient Relationship to Insured Coverage Start Date Coverage End Date [facility] [address] [address] [place] [id number] Shirley Owens - patient is the insured[place] MEDICA[place]PO [address] [place] [id number], AshleySelf - patient is the insured Medications Administered Medication Instructions Date of Administration Dosage Notes Kenalog-40 09/09/255621 mgKetorolac Pneukmsqvupt28/09/202460 te83Hrplgfwpt Tromethamine mg60 Medical (General) History Medical History History ICD Code Left arm pain M79.602 Over weight E66.3 Foot pain, left M79.672 Knee pain, left M25.562 Pain in finger of left hand M79.645 Pain in joint, ankle and foot, left M25. 572 Breast hematoma N64.89 Boil, back L02.222 Puncture wound without foreign body of r ight breast, initial encounter S21.031A DDD (degenerative disc disease), cervica l M50.30 Furuncle of abdominal wall L02.221 Unspecified lump in the right breast, up per outer quadrant N63.11 Hand cramps R25.2 Acute gastroenteritis K52.9 Acute sinusitis J01.90 Contact dermatitis L25.9 Left lower quadrant pain R10.32 Sleep apnea G47.30 Adenoma, adrenal cortical D35.00 Hypomagnesemia E83.42 Acute recurrent frontal sinusitis J01.11 Other chest pain R07.89 Hypertensive urgency I16.0 Morbid obesity E66.01 Migraine G43.909 Adrenal adenoma D35.00 Obstructive sleep apnea G47.33 Psoriasis L40.9 Hypertension I10 Eczema L30.9 Low back pain, unspecified M54.50 Surgical History Surgery Date(Month/Year) Partial lateral meniscectomy 01/01/23 Gall Bladder Removal Cyst Removal from Adrenal GlandLeft Chondroplasty01/01/23C Section X 2Ear Tubes Cyst Removal on TailboneHospitalization History Reason Date(Month/Year) hypertension urgency 2020 left lap adrenalectomy 2019 heart cath 2017
--- OUTSIDE RECORDS SUMMARY | 2025-05-28 13:59 | XMS_ITS | Clinical Summary ---
Author Organization [facility] Address [address] [place] [address] Care Team Providers Care Abrasives Sales Representative Name Role Phone Yovani Echols MD Primary Care Provider [phone] Allergies Active AllergyReactionsCriticalityNoted DateCommentsErythromycinAnaphylaxisHigh 04/03/2022Erythromycin Ptroevuyztso47/06/2022 Medications MedicationSigDispense QuantityRefillsLast FilledStart DateEnd DateStatus magnesium oxide (Mag-Ox) 400 mg (241.3 mg magnesium) tablet magnesium oxide 400 mg (241.3 mg magnesium) tablet TAKE ONE TABLET BY MOUTH TWICE A DAY FOR 30 DAYSActive lisinopril 20 mg tablet Take 20 mg by mouth at bedtime.04/03/2021ctive potassium chloride CR (Klor-Con M20) 20 mEq ER tablet potassium chloride ER 20 mEq tablet,extended release(part/cryst) TAKE 1 TABLET BY MOUTH ONCE A DAY07/01/2021ctive ALPRAZolam (Xanax) 0.5 mg tablet alprazolam 0.5 mg tablet TAKE ONE TABLET BY MOUTH TWICE A DAY NEEDED FOR MSFORIR5110/31/2021ctive methadone (Dolophine) 5 mg/5 mL solution Take 52 mg by mouth in the morning.04/03/2021ctive SUMAtriptan (Imitrex) 50 mg tablet Take 50 mg by mouth if needed.10/15/2021ctive amitriptyline (Elavil) 25 mg tablet Indications:Traumatic brain injury, without loss of consciousness, initial encounter (CMS/[facility])TAKE 1 TABLET EVERY DAY BY ORAL ROUTE AT BEDTIME FOR 30 DAYS. 30 tablet ctive Additional Information Patient taking differently: 25 mg oral Nightly, (No instructions reported), Reported on 12/23/2022 Active Problems ProblemNoted DateDiagnosed DateChondromalacia, left knee3Discoid meniscus of left knee3Carbuncle of back except vmppiqo0904/28/2022 Degeneration of intervertebral disc of cervical dwpyfl5304/28/2022ysmenorrhea 04/28/20225301Zusrdg94/31/2022Furuncle of abdominal wall04/28/2022Hypokalemia 04/28/20221386Fgiziqpmdlzeje62/31/2022Morbid ifvstgu4804/28/20229524Shiqekmqz93/31/2022 Head ymxnij0112/10/2021ontusion of knee12/10/2021prain of right knee12/10/2021 Nlemqkp1807/17/2021HTN (hypertension)07/17/2021leep apnea07/17/2021Hypertensive gyfkxzc6607/11/2019Anxiety state08/13/2017Chest wall pain08/13/2017Adrenal nodule 05/18/2015 Social History Tobacco UseTypesPacks/DayYears UsedDateSmoking Tobacco: FormerCigarettesQuit: 2020Smokeless Tobacco: NeverAlcohol UseStandard Drinks/WeekCommentsNot Currently 0 (1 standard drink = 0.6 oz pure alcohol)Humiliation, Afraid, Rape, and Kick questionnaireAnswerDate RecordedWithin the last year, have you been afraid of your partner or ex-partner?No03/04/2023Emotionally AbusedNot on file03/04/2023 Physically AbusedNot on file03/04/2023Sexually AbusedNot on file03/04/2023 Overall Financial Resource Strain (CARDIA)AnswerDate RecordedHow hard is it for you to pay for the very basics like food, housing, medical care, and heating?Not very hard02/23/2023HQ-2AnswerDate RecordedPatient Health Questionnaire-2 Score0 03/04/2023[facility] Occup[facility] - Occupational Stress QuestionnaireAnswerDate RecordedDo you feel stress - tense, restless, nervous, or anxious, or unable to sleep at night because yourmind is troubled all the time - these days?Not at all02/23/2023UT Safety & EnvironmentAnswerDate Recorded Within the last year, have you been afraid of your partner or ex-partner?No 03/04/2023Emotionally AbusedNot on file03/04/2023hysically AbusedNot on file 03/04/2023Sexually AbusedNot on file03/04/2023In the past year have you been physically or sexually abused?Unrecognized value03/04/2023TransportationAnswer Date RecordedIn the past 12 months, has lack of transportation kept you from medical appointments or from getting medications?No02/23/2023In the past 12 months, has lack of transportation kept you from meetings, work, or from getting things needed for daily living?No02/23/2023CommentsNoSex and Gender InformationValueDate RecordedSex Assigned at BirthNot on fileLegal SexFemale 12/25/2021 11:16 PM EDTGender IdentityNot on fileSexual OrientationNot on file Last Filed Vital Signs Vital SignReadingTime TakenCommentsBlood Xcvtgzcm934/7209 1:50 PM EDT Petln996303/04/2023 1:50 PM RXGJkgtrljwglk28.2 ??C (97.2 ??F)01/01/2023 9:45 AM EDTRespiratory Akxf367001/01/2023 11:15 AM EDTOxygen Dismfrywcc47%01/01/2023 11:15 AM EDTInhaled Oxygen Concentration--Rhpzxt590 kg (270 lb)03/04/2023 1:50 PM EDT Pohelx816.9 cm (5' 1 )03/04/2023 1:50 PM EDTBody Mass Index51.0209 1:50 PM EDT Plan of Treatment Health MaintenanceDue DateLast DoneCommentsDepression Entttebqo61/05/1998 Varicella Vaccines (1 of 2 - 13+ 2-dose series)1998Hepatitis B Vaccines (1 of 3 - 19+ 3-dose series)2004Pap Smear2006HPV Vaccines (1 - 3-dose SCDM series)2012Cervical Cancer Tckaurkhc16/05/2016HPV/Azistx3709/01/2015 COVID-19 Vaccine (2024- season)2025Influenza Vaccine (#1)2025 Adult Omcbkie79Zoster Vaccines (1 of 2)09/01/2035HIB Vaccines Aged Out09/20/1990No longer eligible based on patient's age to complete this topicIPV RtkhhmdoEdqmbzolf76/25/1991, 03/12/1987, 1985, Additional history existsMeningococcal B VaccineAged OutNo longer eligible based on patient's age to complete this topicMeningococcal VaccineAged OutNo longer eligible based on patient's age to complete this topicPneumococcal Vaccine: Pediatrics (0 to 5 Years) and At-Risk Patients (6 to 64 Years)Aged OutNo longer eligible based on patient's age to complete this topicRotavirus VaccinesAged OutNo longer eligible based on patient's age to complete this topic Insurance * Guarantor: Nabila Jewell TypeRelation to PatientDate of BirthPhone Billing AddressPersonal/HzcafzFmxa12/05/1986 [place] [address] * Guarantor: [employer].Account TypeRelation to PatientDate of PhoneBilling AddressWorkers [place] [address] Care Teams Team MemberRelationshipSpecialtyStart DateEnd Yovani Echols MD [address] [address] [facility]02/24/22
--- OUTSIDE RECORDS SUMMARY | 2025-05-28 13:59 | XMS_ITS | Clinical Summary ---
Author Organization [facility] Address [address] [place], [place] [id number] Care Team Providers Care Hockey Player Name Role Phone Yovani Echols MD Primary Care Provider [phone] Serafin Bartlett DO Unavailable [phone] Rolando Rausch DO Unavailable [phone] Zehra Holly HUMAN PERFORMANCE TECHNOLOGIST Unavailable [phone] Allergies No known active allergies Medications MedicationSigDispense QuantityRefillsLast FilledStart DateEnd DateStatus potassium chloride in water 20 mEq/100 mL IVPB Inject 20 mEq intravenously one time only.Active ALPRAZolam (XANAX) 0.5 mg tablet TAKE 1 TABLET BY ORAL ROUTE 2 TIMES PER DAY NEEDED FOR YEFJNST6810/31/2021 Active lisinopril (ZESTRIL, PRINIVIL) 20 mg tablet Take 20 mg by mouth once daily.10/30/2021ctive magnesium oxide (MAG-OX) 400 mg (241.3 mg magnesium) tablet Take 1 tablet by mouth twice daily.10/30/2021ctive methadone HCl (METHADONE ORAL) Take 52 mg by mouth once daily.Active Active Problems ProblemNoted DateDiagnosed DateAdrenal jfwwqu1405/18/2015HTN (hypertension)MONIQUE (obstructive sleep apnea)FatigueChest pain Family History Medical IxizdikRskbwinmPfpowqllBbxrgxjoSvqutqCmqulUckllainokd6XmcxdagufupaPbblvx HypertensionMotherRelationStatusCommentsBrotherAliveFatherAliveMotherAliveSister Alive Social History Tobacco UseTypesPacks/DayYears UsedDateSmoking Tobacco: FormerCigarettes0.510 08/15/2009 - 08/15/2019Smokeless Tobacco: Never Tobacco Cessation:Counseling Given: Not Answered Alcohol UseStandard Drinks/WeekCommentsNo0 (1 standard drink = 0.6 oz pure alcohol)Area Deprivation IndexAnswerDate RecordedNational Score (1-100), lower number is lower jexu126707/26/2022State Score (1-10), lower number is lower risk Not on file3Data from: https://www.neighborhoodatlas.[facility]/. Last address used for x[address] [place], [place] [address]CommentsNoSex and Gender Information ValueDate RecordedSex Assigned at BirthNot on fileLegal XtpKqmofv54/04/2014 3:11 PM EDTGender IdentityNot on fileSexual OrientationNot on fileOccupationIndustry Job Start DateJob End DatestudentNot on fileNot on fileNot on file Last Filed Vital Signs Vital SignReadingTime TakenCommentsBlood Ujfmhztq554/8402/03/2022 10:50 AM EDT Dftpx710702/03/2022 10:50 AM VLJOzqmkefukka60.5 ??C (97.7 ??F)05/18/2015 9:50 AM ESTRespiratory Swrc509003/02/2015 10:04 AM EDTOxygen Vpbglwempv30%02/03/2022 10:50 AM EDTInhaled Oxygen Concentration--Pyubwt033.7 kg (270 lb 8 oz)02/03/2022 10:50 AM CTBEfszbr136.9 cm (5' 1 )02/03/2022 10:50 AM EDTBody Mass Index51.11 02/03/2022 10:50 AM EDT Plan of Treatment Health MaintenanceDue DateLast DoneCommentsAnxiety Rvqopgvzy70/05/2004Depression Nrgyszyoh18/05/2004HIV Bilinqcyn41/05/2004Hepatitis C Jtyqxjuki07/05/2004 Hepatitis B Vaccine (1 of 3 - 19+ 3-dose series)2004Cervical Cancer Fphyxcjvt68/05/2007HPV Vaccine (1 - 3-dose SCDM series)2012DTaP,Tdap,Td Vaccine (6 - Tdap), 09/20/1990, 03/12/1987, Additional history existsCovid-19 Vaccine (2024- season)2025Influenza Vaccine (#1)2025 Insurance * Guarantor: Nabila Jewell TypeRelation to PatientDate of BirthPhone Billing AddressPersonal/WqamezTczb91/05/1986 [place] [address] * Guarantor: Nabila Jewell TypeRelation to PatientDate of BirthPhone Billing AddressWorkers UegoWrek19/05/1986 [place] [address] , [address] [address] * Guarantor: Nabila Jewell TypeRelation to PatientDate of BirthPhone Billing AddressWorkers WqmmNmbs22/05/1986 [place] [address] MemberSubscriberPlan / Payer (Effective 2021-Present)Name:Nabila Jewell Relation to Subscriber:SelfName:Nabila Jewell Payer ID:Not on file Group ID:Not on file Type:[facility] Address: [address] [place] [phone] Care Teams Team MemberRelationshipSpecialtyStart Date Yovani Echols MD PCP - GeneralFamily Medicine03/02/14 Serafin Bartlett DO [address] [place] [id number] XqigodupyOvftjcirp81/17/19 Rolando Rausch DO [address] [address] ReferringOrthopedics10/11/21 Zehra Holly CNP [address] [place], [place] [id number] ReferringFamily Medicine11/19/21
[2025-05-28 15:02] VITALS: BP 135/98
--- NOTE | 2025-05-28 15:07 | XR_ITS ---
[address] [address] Patient Name: RIVERA OWENS MRN: [id number] date: 1985 Sex: F Assigned Patient Location: ER Current Patient Location: ER Accession/Order Number: [id number] Exam Date: 05/28/2025 15:52 Report Date: 05/28/2025 16:15 At the request of: TING DC Procedure: XR chest 1V XR chest 1V 05/28/2025 3:57 PM SIGNS AND SYMPTOMS: ^chest pain ^Y PROTOCOL: Frontal radiograph of the chest COMPARISON: 09/06/2021 FINDINGS: The trachea is midline. The heart and mediastinal structures are within normal limits. The lung parenchyma is clear. The bony thorax is intact. There is a dextro convex curvature of the thoracic spine. XR/XR chest 1V IMPRESSION: No acute cardiopulmonary pathology. Impression dictated by: Bryna Reyes M.D. 05/28/2025 4:15 PM Dictation Location: [place] [address] Electronically authenticated by: [id number] Y Date: 05/28/2025 16:15
--- NOTE | 2025-05-28 15:11 | ECG_ITS ---
[facility] Test Date: 2025-05-28 Pat Name: RIVERA OWENS Department: Room: - Gender: Female Training Lead: : 1985 Requested By: [id number] Order Number: [id number] Reading MD: DEMETRIA BATRES M.D. Measurements Intervals Gladys Rate: 59 P: 36 [place]: 156 QRS: 25 QRSD: 82 T: 21 QT: 396 QTc: 395 Interpretive Statements 1100 Sinus rhythm 8102 Low QRS voltage in chest leads 9120 atypical ECG Compared to ECG 09/06/2021 19:40:17 Low QRS voltage now present Sinus tachycardia no longer present Right-axis deviation no longer present Electronically Signed On 05-28-2025 15:43:21 EST by DEMETRIA BATRES M.D.
--- NOTE | 2025-05-28 15:12 | ED.GENADUL1 ---
HPI HPI - General Adult General Chief complaint: Abdominal Pain Stated complaint: ABDOMINAL PAIN- RECENT TRAVEL OUT OF COUNTRY Time Seen by Provider: 05/28/25 14:59 Source: patient Mode of arrival: walk-in History of Present Illness HPI narrative: Patient is a 39-year-old female presents to the ER with concerns of nausea vomiting and abdominal pain that have been present for the past 4 days. Patient states she had diarrhea earlier in the week that is since resolved. Normal bowel movement this morning. Patient states she is sexually active and her last menstrual cycle was at the beginning in April. She does not believe that she is . Patient states she recently got 1 month ago and was staying with her in [place] before she drove back home here which took her 3 days approximately 4 days ago. Patient states her does not have citizenship and cannot come here. She complains of moderate right sided abdominal pain. She denies shortness of breath but states after repetitive vomiting she has experienced some chest pain which she relates to the epigastric and midsternal to left chest wall for past several days with vomiting. She denies any radiation of symptoms. The patient has had her gallbladder removed but still has her appendix. She reports having a known history of an adrenal cyst as well. Patient states her friends told her she may be suffering from anxiety because of the recent circumstances. Patient notes that her relationship with her is healthy and that she feels safe. She reports he is aware that she had returned home. She reports meeting him over a year ago and only recently getting . She denies any known ill exposures at home or during her travels. Patient states she can feel a lump on the right side of her abdomen at times. She does not appear in any distress Onset (ago): day(s) (4) Location: Reports chest and abdomen; Denies head or face Radiation: Reports abdomen and flank Severity: moderate Quality: Reports other (cramping) Pain Consistency: Reports constant Associated symptoms: Reports denies other symptoms Related Data Home Medications ?Medication ?Instructions ?Recorded ?Confirmed alprazolam 0.5 mg tablet (Xanax) 0.5 mg PO BID 04/27/23 05/28/25 lisinopril 20 mg tablet 20 mg PO DAILY 04/27/23 05/28/25 magnesium 200 mg tablet 400 mg PO DAILY 04/27/23 05/28/25 methadone 10 mg/mL oral 40 mg PO DAILY 04/27/23 05/28/25 concentrate (Methadose) potassium 20 meq PO BEDTIME 04/27/23 05/28/25 ferrous sulfate 325 mg (65 mg 325 mg PO DAILY 06/15/23 05/28/25 iron) tablet (Feosol) Previous Rx's ?Medication ?Instructions ?Recorded promethazine 25 mg tablet 25 mg PO TID PRN nausea and 05/28/25 vomiting 2 days #6 tabs Allergies Allergy/AdvReac Type Severity Reaction Status Date / Time azithromycin Allergy Unknown Unknown Verified 03/05/24 19:12 erythromycin base Allergy Anaphylaxis Verified 03/05/24 19:12 Review of Systems ROS Constitutional Denies: fever or chills Ears, nose, mouth, and throat Denies: throat pain, neck pain or difficulty swallowing Cardiovascular Reports: chest pain; Denies: palpitations, edema, swelling of feet/ankles, lightheadedness, shortness of breath with exertion or shortness of breath when lying down Gastrointestinal Reports: abdominal pain, nausea, vomiting and diarrhea (resolved yesterdat); Denies: blood in stool Genitourinary Reports: urinary frequency; Denies: painful urination or urinary urgency Musculoskeletal Denies: back pain, neck pain or extremity pain Integumentary/Breast Reports: rash (psoriatic plaques (L) elbow) Neurological Denies: headache Psychiatric Reports: anxiety PFSH PFS Social History Little interest or pleasure in doing things: not at all Feeling down, depressed, or hopeless: not at all Exam Narrative Exam Narrative: Nurse's notes and vital signs reviewed and patient is not hypoxic. General: The patient appears well and in no apparent distress. Patient is resting comfortably in cart. emesis bag at bedside without vomit. Skin: Warm, dry, no pallor noted. Head: Normocephalic, atraumatic Neck: Supple, trachea midline, no tenderness, no lymphadenopathy Ears, nose, mouth, and throat: TMs are clear, normal light reflex, oral mucosa is moist, no posterior oropharynx erythema or hypertrophy, uvula is midline Cardiovascular: Regular rate and rhythm Respiratory: Patient is in no distress, no accessory muscle use, lungs are clear to auscultation, no wheezing, rales, or rhonchi. Chest wall: No tenderness Musculoskeletal: Normal ROM, no tenderness, no swelling GI: Normal bowel sounds, mild tenderness in the right lower quadrant and right flank. , no masses appreciated. pt noted occasional lump right flank/ right anterior abdomen. , not palpable No rebound, guarding, or rigidity noted. Neurological: Alert and oriented ?4, denies paresthesias Psychiatric: Cooperative, calm Constitutional Vital Signs, click to edit/add: Last Vital Signs Temp 98.2 F 05/28/25 13:40 Pulse 75 05/28/25 13:40 Resp 18 05/28/25 15:02 BP 135/98 H 05/28/25 15:02 Pulse Ox 100 05/28/25 13:40 Course Vital Signs Vital signs: Vital Signs Temperature 98.2 F 05/28/25 13:40 Pulse Rate 75 05/28/25 13:40 Respiratory Rate 20 05/28/25 13:40 Blood Pressure 144/100 H 05/28/25 13:40 Pulse Oximetry 100 05/28/25 13:40 Temperature 98.2 F 05/28/25 13:40 Pulse Rate 75 05/28/25 13:40 Respiratory Rate 18 05/28/25 15:02 Blood Pressure 135/98 H 05/28/25 15:02 Pulse Oximetry 100 05/28/25 13:40 Medical Decision Making MDM Narrative Medical decision making narrative: Patient presents with multiple complaints involving nausea vomiting and abdominal pain that has been persistent for 4 days diarrhea seems to have resolved. She also has a secondary complaint of some chest pain that may be related to her repetitive vomiting. She denies any exertional symptoms or shortness of breath. Her right sided abdominal pain does involve the right lower chest wall. We discussed her possibility of and urinalysis and blood drawl be performed for testing. Patient was ordered Zofran for nausea, Levsin, and Toradol for abdominal pain, but declined only accepting IV fluid bolus. Will review labs before ordering CT of Abdomen/ Pelvis Patient reevaluated discussed preliminary labs, D-dimer within normal limits CBC without evidence of white blood cell count elevation or anemia. Patient declined medication stating that she does not like medication and would like to know the problem before doing anything symptomatic for treatment. As result her abdomen is still somewhat tender on palpation and her pain level is unchanged she is agreeable to move forward with a CT of the abdomen and pelvis primarily to rule out appendicitis given her length of symptoms. We discussed that there may be a viral component with symptomatic treatment. Risks and benefits of the CT study were discussed and patient is agreeable. Patient reevaluated, symptoms continue the IV fluid bag is almost complete. Patient notes she does feel a little bit better and would like to take a nausea pill to take at home if needed. A small prescription will be sent to her pharmacy. We discussed her symptoms starting at the end of her trip in [place] before returning and she admits to drinking water and eating different foods throughout the entire month. She is recommended to follow-up with her family doctor for reevaluation, symptoms may be viral or from her travels. The patient is to followup with primary care physician in next 2-3 days or to return to the emergency department should any of the signs or symptoms worsen or new symptoms develop. Patient had questions answered. The patient agrees with the following Diagnosis and Treatment plan and the patient will be discharged home. Lab Data Lab results reviewed: Yes I reviewed the patient's lab results Labs: Lab Results 05/28/25 05/28/25 Range/Units 15:15 15:23 WBC 8.0 (4.0-11.0) 10^3/uL RBC 4.69 (4.20-5.40) 10^6/uL Hgb 13.8 (12.0-16.0) g/dL Hct 41.6 (36.0-48.0) % MCV 88.7 (81.0-99.0) fL MCH 29.4 (26.7-34.0) pg MCHC 33.2 (29.9-35.2) g/dL RDW 12.0 (11.0-15.0) % Plt Count 338 (150-450) 10^3/uL MPV 8.4 L (9.5-13.5) fL Neut % (Auto) 72.4 (43.0-75.0) % Lymph % (Auto) 22.4 (20.5-60.0) % [place] % (Auto) 4.1 (1.7-12.0) % Eos % (Auto) 0.3 L (0.9-7.0) % Baso % (Auto) 0.5 (0.2-2.0) % Neut # (Auto) 5.8 (1.4-6.5) 10^3/uL Lymph # (Auto) 1.8 (1.2-3.8) 10^3/uL [place] # (Auto) 0.3 (0.3-0.8) 10^3/uL Eos # (Auto) 0.0 (0.0-0.7) 10^3/uL Baso # (Auto) 0.0 (0.0-0.1) 10^3/uL Abs Immat Gran (auto) 0.02 (0.00-0.03) 10^3/uL Imm/Tot Granulo (auto) 0.3 (0.0-0.5) % D-Dimer <0.19 (<=0.59) mg/L FEU Sodium 138 (136-145) mmol/L Potassium 4.6 (3.5-5.1) mmol/L Chloride 101 (98-107) mmol/L Carbon Dioxide 29.3 (21.0-32.0) mmol/L Anion Gap 12.3 BUN 15.0 (7.0-18.0) mg/dL Creatinine 0.90 (0.55-1.02) mg/dL Est GFR ( Amer) >60 (>=60 mL/min/1.73m^2) Est GFR (Non-Af Amer) >60 (>=60 mL/min/1.73m^2) BUN/Creatinine Ratio 16.7 Glucose 97 (74-106) mg/dL Calcium 9.3 (8.5-10.1) mg/dL Total Bilirubin 0.4 (0.2-1.0) mg/dL AST 12 L (15-37) U/L ALT 16 (14-59) U/L Alkaline Phosphatase 106 (46-116) U/L Troponin I High Sens 4.3 (4.0-51.3) pg/mL Total Protein 8.1 (6.4-8.2) g/dL Albumin 3.7 (3.4-5.0) g/dL Globulin 4.4 g/dL Albumin/Globulin Ratio 0.8 Lipase 19.0 (16.0-77.0) U/L Serum HCG, Qual Negative (NEGATIVE) Urine Color Lt. yellow (YELLOW) Urine Clarity Clear (CLEAR) Urine pH 8.0 (5.0-9.0) Ur Specific [place] 1.020 (1.005-1.025) Urine Protein Negative (NEG/TRACE) mg/dL Urine Glucose (UA) Negative (NEGATIVE) mg/dL Urine Ketones Negative (NEGATIVE) mg/dL Urine Occult Blood Negative (NEGATIVE) Urine Nitrite Negative (NEGATIVE) Urine Bilirubin Negative (NEGATIVE) Urine Urobilinogen 0.2 (0.2-1.0) EU/dL Ur Leukocyte Esterase Negative (NEGATIVE) Urine RBC None seen (0-2) #/HPF Urine WBC None seen (NONE SEEN) #/HPF Ur Squamous Epith Cells Many A (NONE/RARE) #/LPF Urine Crystals None seen (None Seen) #/HPF Urine Bacteria Trace A (NONE SEEN) #/HPF Urine Casts None seen (NONE SEEN) #/LPF Urine Mucus None seen (NONE SEEN) Imaging Data CT scan - abdomen: Radiologist's impression: ITS Impressions Chest X-Ray 05/28/25 15:07 IMPRESSION: No acute cardiopulmonary pathology. Impression dictated by: Bryan Reyes M.D. 05/28/2025 4:15 PM Dictation Location: [facility] Electronically authenticated by: [id number] Y Date: 05/28/2025 16:15 Abdomen/Pelvis CT 05/28/25 16:02 IMPRESSION: No bowel obstruction or obstructive uropathy. There is a normal appendix in the right lower quadrant. There is evidence of prior cholecystectomy. Impression dictated by: Bryan Reyes M.D. 05/28/2025 4:46 PM Dictation Location: [facility] Electronically authenticated by: [id number] Y Date: 05/28/2025 16:46 ECG Data Attestation: I personally reviewed and interpreted this ECG as follows: Interpretation: Prelim EKG interpretation: normal sinus rhythm 59 bpm, no ectopy, no ST segment elevation, normal axis. Discharge Plan Discharge Chief Complaint: Abdominal Pain Clinical Impression: Nausea & vomiting, Abdominal pain Patient Disposition: Home, Self-Care Time of Disposition Decision: 17:09 Condition: Good Prescriptions / Home Meds: New promethazine 25 mg tablet 25 mg PO TID PRN (Reason: nausea and vomiting) 2 Days Qty: 6 0RF No Action potassium 20 mEq 20 meq PO BEDTIME magnesium 200 mg tablet 400 mg PO DAILY lisinopril 20 mg tablet 20 mg PO DAILY alprazolam [Xanax] 0.5 mg tablet 0.5 mg PO BID methadone [Methadose] 10 mg/mL concentrate 40 mg PO DAILY ferrous sulfate [Feosol] 325 mg (65 mg iron) tablet 325 mg PO DAILY Print Language: Azerbaijani Instructions: Acute Nausea and Vomiting (ED), Abdominal Pain (ED) Referrals: Yovani Echols MD [Primary Care Provider, Family Practice] - As soon as possible
[2025-05-28] MEDS: 0.9 % SODIUM CHLORIDE 1,000 ML 999 ML IV (15:22)
[2025-05-28 15:37] LABS: Hematocrit 41.6 % (36.0-48.0); Hemoglobin 13.8 g/dL (12.0-16.0); Immature Granulocytes Abs Auto 0.02 10^3/uL (0.00-0.03); Immature Granulocytes Pct Auto 0.3 % (0.0-0.5); Lymphocytes Absolute Auto 1.8 10^3/uL (1.2-3.8); Mean Corpuscular HGB Conc 33.2 g/dL (29.9-35.2); Mean Corpuscular Hemoglobin 29.4 pg (26.7-34.0); Mean Corpuscular Volume 88.7 fL (81.0-99.0); Platelet Count 338 10^3/uL (150-450); Red Blood Count 4.69 10^6/uL (4.20-5.40); White Blood Count 8.0 10^3/uL (4.0-11.0)
[2025-05-28 15:39] LABS: Glucose Urine UA NEGATIVE (NEGATIVE)
[2025-05-28 15:56] LABS: Alanine Aminotransferase 16 U/L (14-59); Albumin Globulin Ratio 0.8; Albumin Level 3.7 g/dL (3.4-5.0); Alkaline Phosphatase 106 U/L (46-116); Anion Gap 12.3; Aspartate Amino Transferase 12 U/L (15-37); Blood Urea Nitrogen 15.0 mg/dL (7.0-18.0); Calcium 9.3 mg/dL (8.5-10.1); Carbon Dioxide 29.3 mmol/L (21.0-32.0); Chloride 101 mmol/L (98-107); Estimated GFR (African America >60 (>=60 mL/min/1.73m^2); Estimated GFR (Non-African Ame >60 (>=60 mL/min/1.73m^2); Globulin 4.4 g/dL; Glucose 97 mg/dL (74-106); Lipase 19.0 U/L (16.0-77.0); Potassium 4.6 mmol/L (3.5-5.1); Sodium 138 mmol/L (136-145); Total Protein 8.1 g/dL (6.4-8.2)
[2025-05-28 16:00] LABS: Cast Seen? NONE SEEN #/LPF (NONE SEEN); Crystals Seen? None Seen #/HPF (None Seen)
--- NOTE | 2025-05-28 16:02 | CT_ITS ---
The [address] [address] Patient Name: RIVERA OWENS MRN: [id number] date: 1985 Sex: F Assigned Patient Location: ER Current Patient Location: ER Accession/Order Number: [id number] Exam Date: 05/28/2025 16:15 Report Date: 05/28/2025 16:46 At the request of: TING DC Procedure: CT abdomen pelvis w con CT abdomen pelvis w con 05/28/2025 4:25 PM SIGNS AND SYMPTOMS: Abdominal pain, ^Right lower quad abdominal pain \S.br\ TECHNIQUE: Multidetector ct axial images of the abdomen and pelvis were obtained with IV contrast. Multiplanar reformats were performed and reviewed to further define anatomy and possible pathology. CT was performed with one or more of the following dose reduction techniques: Automated exposure control, adjustment of the mA and/or kV according to patient size, or use of iterative reconstruction technique. COMPARISON: None. FINDINGS: Lower Chest: Within normal limits. ABDOMEN: Liver: Within normal limits. Bile Ducts: Normal caliber. Gallbladder: Previously removed Pancreas: Within normal limits. Spleen: Within normal limits. Adrenals: Within normal limits. Kidneys: Within normal limits. Pelvis: Reproductive Organs: No pelvic masses. Ureters: Within normal limits. Bladder: Within normal limits. Bowel: Normal caliber. There is a normal appendix in the right lower quadrant. Mesenteric Lymph Nodes: No enlarged mesenteric lymph nodes. Peritoneum: No ascites or free air, no fluid collection. Vessels: Atherosclerotic changes are noted in the abdominal aorta and its branches. Retroperitoneum: Within normal limits. Abdominal Wall: Within normal limits. Bones: Degenerative changes are noted in the lumbar spine. Degenerative changes are noted in the sacroiliac joints. CT/CT abdomen pelvis w con IMPRESSION: No bowel obstruction or obstructive uropathy. There is a normal appendix in the right lower quadrant. There is evidence of prior cholecystectomy. Impression dictated by: Bryan Reyes M.D. 05/28/2025 4:46 PM Dictation Location: [place] [address] Electronically authenticated by: [id number] Y Date: 05/28/2025 16:46
[2025-05-28] MEDS: PROMETHAZINE HCL 25 MG TABLET PO (17:34)
== END 2025-05-28 17:43 | disposition home or self-care (01) ==
PROVIDERS: Personal Emergency Response Attendant; Emergency Provider Emergency Medicine; PCP Family Medicine
DX: R10.9 Unspecified abdominal pain (principal); R11.2 Nausea with vomiting, unspecified; Z90.49 Acquired absence of other specified parts of digestive tract
CPT/HCPCS: 36415; 71045; 74177; 80053; 81001; 83690; 84484; 84703; 85025; 85378; 93005; 96360; 96361; 99285; Q0169; Q9967

== ENCOUNTER 2025-05-31 11:54 | Outpatient (OUT) | payer OTHER, SELFPAY ==
--- OUTSIDE RECORDS SUMMARY | 2024-04-04 06:10 | XMS_ITS ---
Author Organization [facility] Address [address] [place] [address] Care Team Providers Care Hydrometeorological Technician Name Role Phone GabinoYovani waldron Primary Care Provider Dario Phipps [facility] [phone] Allergies Allergen (clinical drug ingredient) Drug/Non Drug Allergy documented on EMR Reaction Allergy Type Onset Date Status erythromycinUnknownDrug AllergyActive REASON FOR VISIT RIGHT KNEE PAIN Medications Medication SIG (Take, Route, Frequency, Duration) Notes Start Date End Date Status lisinopril ActivemethadoneActiveXanaxActive Social History Tobacco Use: Social History Observation Description Date Details (start date - stop date) Never Smoker NA - NA AUDIT-C (Standard) Question Answer Notes Did you have a drink containing alcohol in the p ast year? 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 [address] [place] [address] [place] [address] 04/04/2024 Dario Mccoy Acute pain of right knee M25.561 and Chondromalacia of lateral condyle of right femur M94.261 Assessments Encounter Date Diagnosis (ICD Code) Assessment Notes Treatment Notes Treatment Clinical Notes Section Notes 04/04/2024 Acute pain of right knee (ICD-10 - M25.561) 04/04/2024hondromalacia of lateral condyle of right femur (ICD-10 - M94.261) 04/04/2024Other Patient's right knee injury is improving. No sign of any internal derangement that requires surgery. She will continue with symptomatic treatment and physical therapy. She will follow-up in 1 month to reassess her progress. Import medication Plan Of Treatment Treatment Notes Assessment Notes Other Patient's right knee injury is improving. No sign of any internal derangement that requires surgery. She will continue with symptomatic treatment and physical therapy. She will follow-up in 1 month to reassess her progress. Import medication Next Appt Details Follow Up: 4 Weeks, Reason: Progress Notes * RIVERA OWENS MDOB:[birth year] (39 yo F)Acc No.[id number]:04/04/2024 Patient:?RIVERA OWENS Vilma :[facility]1985???Age:38 Y ???Sex:FemaleDate:04/04/2024hone:[phone]:[address] [place], [place] [address]Pcp:Yovani Echols Subjective: * Chief Complaints: * 1 . RIGHT KNEE PAIN. * HPI: ???General Follow Up Information:?Patient presents today for right knee pain. She reports approximately 4 weeks ago she twisted her knee and developed the acute onset of pain and swelling. She reports recently being in physical therapy which helped dramatically with her symptoms. She still has some discomfort and uses 1 crutch but feels as though she continues to improve. ???General Info per Patient Report:?Have you seen another doctor in this practice??No.?Side affected is?Right.?Joint or body part affected is?knee.?Pain occurred?injury.?Work related:?No.?Motor vehicle accident:?No.?MVA?No.?Have you been seen by a Dentist in the last year??Yes.?Do you have any dental problems??Yes.? * Medical History: C PAP Machine:, Sleep apnea, High Blood Pressure, Anxiety, Drug Allergies. * Surgical History: L EFT KNEE 2022. * Family History: N o Family History documented.. * Social History: A PARVEEN-C (Standard) D id you have a drink containing alcohol in the past year? N o,?Points 0 , I nterpretation N egative. T obacco Control (Standard) T obacco use: N onsmoker. * Medications: T aking lisinopril , Taking methadone , Taking Xanax , Medication List reviewed and reconciled with the patient * Allergies: E rythromycin. Objective: * Vitals: H t: 5'1 , Wt: 240 lbs, BMI:45.34. * Examination: ???General examination: ???On exam today she is in no obvious distress. Right knee has a trace joint effusion. Has mild joint line tenderness. No gross ligamentous instability. Good knee range of motion. ???X-ray Imaging Studies: ???X-rays of her right knee were reviewed and show no obvious abnormalities . ???MRI Imaging Studies: ???MRI report and images of her right knee reviewed and I agree with the findings ofno meniscal or ligament tears. There is some patellar chondromalacia and by my read intermediate grade chondromalacia of the medial femoral condyle. . ??? 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 Plan: * Treatment: Notes: Patient's right knee injury is improving. No sign of any internal derangement that requires surgery. She will continue with symptomatic treatment and physical therapy. She will follow-up in 1 month to reassess her progress. Import medication?? * Follow Up: 4 Weeks Forms: * Images: * Electronic signature of Dario Mccoy MD on 05/31/2025 at 12:00 PM ESTSign off status: Pending * Provider: Rut Mccoy MD Date: Generated for Printing/Faxing/eTransmitting on:?05/31/2025 12:00 PM EST History and Physical Notes * HPI (History of Present Illness) CategorySub-CategoryDetailNotesCategory NotesGeneral Follow Up Information Patient presents today for right knee pain. She reports approximately 4 weeks ago she twisted her knee and developed the acute onset of pain and swelling. She reports recently being in physical therapy which helped dramatically with her symptoms. She still has some discomfort and uses 1 crutch but feels as though she continues to improve.General Info per Patient ReportSide affected isRight Joint or body part affected iskneePain occurredinjuryWork related:NoMotor vehicle accident:NoHave you seen another doctor in this practice?NoHave you been seen by a Dentist in the last year?YesDo you have any dental problems?YesMVANo Examination CategorySub-CategoryDetailNotesCategory NotesGeneral examinationOn exam today she is in no obvious distress. Right knee has a trace joint effusion. Has mild joint line tenderness. No gross ligamentous instability. Good knee range of motion.X-ray Imaging Studies X-rays of her right knee were reviewed and show no obvious abnormalities MRI Imaging Studies MRI report and images of her right knee reviewed and I agree with the findings of no meniscal or ligament tears. There is some patellar chondromalacia and by my read intermediate grade chondromalaciaof the medial femoral condyle.
--- OUTSIDE RECORDS SUMMARY | 2024-04-25 05:05 | XMS_ITS ---
Author Organization [facility] Address [address] [facility] [place] [address] Care Team Providers Care Line Ordering Clinician Name Role Phone Dr. Dwaine Bates Primary Care Provider REASON FOR VISIT FILLING NEEDS SHAVED DOWN AGA JOSE Encounters Encounter Location Date Provider Diagnosis [facility] [address] [place] [address] 04/25/2024 Dwaine Bates Plan Of Treatment No Information Progress Notes * RIVERA OWENS MDOB:[birth year] (39 yo F)Acc No.[id number]:04/25/2024 Patient:?RIVERA OWENS :?Dwaine Bates DDSDOB:1985???Age:38 Y???Sex: FemaleDate:04/25/2024hone:[phone]:[address] [place], [place] [id number] Subjective: * Chief Complaints: * F ILLING NEEDS SHAVED DOWN AGA JOSE * Electronic signature of Dr. Dwaine Bates , DMD, [id number] on 05/31/2025 at 12:01 PM ESTSign off status: Pending * Provider: Paco Bates DDS Date: Generated for Printing/Faxing/eTransmitting on:?05/31/2025 12:01 PM EST
--- OUTSIDE RECORDS SUMMARY | 2024-04-27 08:45 | XMS_ITS ---
Author Organization [facility] Address [address] [place] [address] Care Team Providers Care Corporate Controller Name Role Phone Dr. Dwaine Bates Primary Care Provider REASON FOR VISIT filling needed grinded down rocio Encounters Encounter Location Date Provider Diagnosis [facility] [address] [place] [address] 04/27/2024 Dwaine Bates Plan Of Treatment No Information Progress Notes * RIVERA OWENS MDOB:[birth year] (39 yo F)Acc No.[id number]:04/27/2024 Patient:?RIVERA OWENS :?Dwaine Bates DDSDOB:1985???Age:38 Y???Sex: FemaleDate:04/27/2024hone:[phone]:[address] [place], [place] [id number] Subjective: * Chief Complaints: * F illing needed grinded down rocio * Electronic signature of Dr. Dwaine Bates , DMD, [id number] on 05/31/2025 at 11:59 AM ESTSign off status: Pending * Provider: Paco Bates DDS Date: Generated for Printing/Faxing/eTransmitting on:?05/31/2025 11:59 AM EST
--- OUTSIDE RECORDS SUMMARY | 2024-05-02 03:10 | XMS_ITS ---
Author Organization [facility] Address [address] [place] [address] Care Team Providers Care Trucker Hand Name Role Phone Yovani Echols Primary Care Provider Dario Phipps [facility] [phone] REASON FOR VISIT RIGHT KNEE PAIN Encounters Encounter Location Date Provider Diagnosis [facility] [address] [place] [address] [place] [address] 05/02/2024 Dario Mccoy Plan Of Treatment No Information Progress Notes * RIVERA OWENS MDOB:[birth year] (39 yo F)Acc No.[id number]:05/02/2024 Patient:?RIVERA OWENS :?[facility]1985???Age:38 Y ???Sex:FemaleDate:05/02/2024hone:[phone]:[address] [place], [place] [address]Pcp:Yovani Echols Subjective: * Chief Complaints: * 1 . RIGHT KNEE PAIN. * Medical History: Objective: * Vitals: Assessment: Plan: * Treatment: Forms: * Images: * Electronic signature of Dario Mccoy MD on 05/31/2025 at 12:01 PM ESTSign off status: Pending * Provider: Rut Mccoy MD Date: 07/02/2023 Generated for Printing/Faxing/eTransmitting on:?05/31/2025 12:01 PM EST
--- OUTSIDE RECORDS SUMMARY | 2024-09-05 05:15 | XMS_ITS ---
Author Organization [facility] Address [address] [place] [address] Care Team Providers Care Shuttle Veneering Supervisor Name Role Phone Dr. Dwanie Bates Primary Care Provider REASON FOR VISIT FILLING Encounters Encounter Location Date Provider Diagnosis [facility] [address] [place] [address] 09/05/2024 Dwaine Bates Plan Of Treatment No Information Progress Notes * RIVERA OEWNS MDOB:[birth year] (39 yo F)Acc No.[id number]:09/05/2024 Patient:?RIVERA OWENS :?Dwaine Bates DDSDOB:1985???Age:39 Y???Sex: FemaleDate:09/05/2024Phone:[phone]:[address] [place], [place] [id number] Subjective: * Chief Complaints: * F ILLING * Electronic signature of Dr. Dwaine Bates , DMD, [id number] on 05/31/2025 at 12:00 PM ESTSign off status: Pending * Provider: Paco Bates DDS Date: 09/05/2024 Generated for Printing/Faxing/eTransmitting on:?05/31/2025 12:00 PM EST
--- OUTSIDE RECORDS SUMMARY | 2025-01-03 09:00 | XMS_ITS ---
[facility] [address] [place] [address] Care Team Providers Care Staff Radiographer Name Role Phone Dr. Dwaine Bates Primary Care Provider [phone] Cathy Chung Fernie [phone] REASON FOR VISIT PROPHY XRAYS EXAM Encounters Encounter Location Date Provider Diagnosis [facility] [address] [place] [address] 01/03/2025 Cathy Thorne Acute gingivitis, plaque induced [...] RIVERA OWENS MDOB:[birth year] (39 yo F)Acc No.[id number]:01/03/2025 Patient:?RIVERA OWENS :?Cathy ThorneDOB:1985???Age:39 Y???Sex: FemaleDate:01/03/2025Phone:[phone]:[address] [place] [address]Rqx:Dr. Dwaine Bates Subjective: * Chief Complaints: * P ROPHY XRAYS EXAM Objective: * Dental Examination/Plan : * Tooth / Surface Status Description Provider Date TPPROPHYLAXIS - [id number]/03/2025TPPERIODIC ORAL [id number]/08/2025 Assessment: * Assessment: 1.?Acute gingivitis, plaque induced - K05.00 (Primary)???2.?Encounter for dental examination and cleaning with abnormal findings - Z01.21??? * Electronic signature of Cathy Thorne on 05/31/2025 at 12:00 PM ESTSign off status: Pending * Provider: Bao Thorne Date: 0 01/03/2025 Generated for Printing/Faxing/eTransmitting on:?05/31/2025 12:00 PM EST
--- OUTSIDE RECORDS SUMMARY | 2025-05-31 12:00 | XMS_ITS | Clinical Summary ---
Author Organization [facility] Address [id number] [address] [id number] Care Team Providers Care Machine Pecan Picker Name Role Phone Yovani Echols MD Primary Care Provider [phone] Allergies No known active allergies Medications MedicationSigDispense [...] by mouth daily.07/01/2021ctive Active Problems ProblemNoted DateDiagnosed QsfrGnbqvqo38/19/2022HTN (hypertension)2OSA (obstructive sleep apnea)07/17/2021Hypertensive nmsjybv8207/11/2019Chest pain 09/22/2017Adrenal celuvk1105/18/2015 Immunizations No known immunizations Family History Medical HistoryRelationNameCommentsDiabetesFatherHeart diseaseFatherHypertension FatherHypertensionMotherRelationNameStatusCommentsFatherMother Social History Tobacco UseTypesPacks/DayYears UsedDateSmoking Tobacco: Every DayCigarettes Smokeless Tobacco: NeverChildcareAnswerDate DzyeywizFaqydjmanDtuclzx85/12/2019 EmploymentAnswerDate UjmzzomoBghwniikznOxynzqg57/12/2019Purpose - LifeAnswerDate RecordedPurpose and direction in amnxNjutnao99/23/2021CommentsNoSex and Gender InformationValueDate RecordedSex Assigned at BirthNot on fileLegal Sex Pcjdvk6302/01/2015 12:11 PM EDTGender IdentityNot on fileSexual OrientationNot on file Last Filed Vital Signs Vital SignReadingTime TakenCommentsBlood Sfghwjgg172/9607/14/2019 11:38 AM EST Tdogh520407/14/2019 9:08 AM DDXNmdbhqgfrgm22.4 ??C (97.6 ??F)07/14/2019 9:00 AM ESTRespiratory Hxab984807/14/2019 9:00 AM ESTOxygen Vhuqyvyesn135%07/14/2019 9:08 AM ESTInhaled Oxygen Concentration--Ughqyh33.8 kg (202 lb 6.1 oz)07/14/2019 12:36 AM ELQEpcnqv367.9 cm (5' 1 )07/11/2019 11:43 PM ESTBody Mass Index38.24 07/11/2019 11:43 PM EST Plan of Treatment Health MaintenanceDue DateLast DoneCommentsDepression Rouwflxak38/05/1998Tobacco Unjgiwhvg39/05/1998Adult BMI Rvoazeoir87/05/2004DTaP,Tdap and Td Vaccines (1 - Tdap)2004Pap Smear2006Influenza Uzwoucz5402/27/2025 Goals GoalPatient Goal TypeAssociated ProblemsRecent ProgressPatient-Stated?Author Long-Term [...]
--- OUTSIDE RECORDS SUMMARY | 2025-05-31 12:01 | XMS_ITS | Clinical Summary ---
Author Organization [facility] Address [address], [address] [place] [address] Care Team Providers Care Floorworker Name Role Phone Yovani Echols MD Primary Care Provider [phone] Allergies No known active allergies Medications MedicationSigDispense [...] InformationValueDate RecordedSex Assigned at BirthNot on fileLegal JpsNckeuf35/10/2013 12:33 PM ESTGender IdentityNot on fileSexual OrientationNot on file Last Filed Vital Signs Vital SignReadingTime TakenCommentsBlood Sgarteyx288/8908/13/2017 1:00 PM EST Mwroe099108/13/2017 1:00 PM LNEYxngmsjteaj00.7 ??C (98.1 ??F)12/27/2014 10:01 AM EDTRespiratory Ttxt381608/13/2017 1:00 PM ESTOxygen Kozsgkdhmr84%08/13/2017 1:00 PM ESTInhaled Oxygen Concentration--Ojebno97.6 kg (202 lb)08/13/2017 11:20 AM IYFYjskxa459.9 cm (5' 1 )08/13/2017 11:20 AM ESTBody Mass Index38.17008/13/2017 11:20 AM EST Plan of Treatment Not on file Insurance Care Teams Team MemberRelationshipSpecialtyStart DateEnd Date Yovani Echols MD [address] [place] [address] [facility]
--- OUTSIDE RECORDS SUMMARY | 2025-05-31 12:01 | XMS_ITS | Patient Health Record ---
Author Organization [facility] Address [address] [place] [address] Care Team Providers Care Head Of Visual Merchandising Name Role Phone Yovani Echols Primary Care Provider Dario Phipps [phone] Allergies Allergen (clinical drug ingredient) Drug/Non Drug Allergy documented on EMR Reaction Allergy Type Onset Date Status erythromycinUnknownDrug AllergyActive Reason For Referral No Information Medications Medication SIG (Take, Route, Frequency, Duration) Notes Start Date End Date Status lisinopril ActivemethadoneActiveXanaxActive Social History Tobacco Use: Social History Observation Description Date Details (start date - stop date) Never Smoker NA - NA AUDIT-C (Standard) Question Answer Notes Did you have a drink containing alcohol in the p ast year? 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
--- OUTSIDE RECORDS SUMMARY | 2025-05-31 12:01 | XMS_ITS | Clinical Summary ---
Author Organization [facility] Address [address] [place] [address] Care Team Providers Care Finance Intern Name Role Phone Yovani Echols MD Primary Care Provider [phone] Active Problems ProblemNoted DateDiagnosed DateInternal derangement of left knee01/14/2023Left anterior knee pain01/14/2023ifficulty otdkgly4901/14/2023S/P left knee eoapjkfugaq85/19/2023 Family History Medical HistoryRelationNameCommentsDiabetesFatherRelationNameStatusComments FatherMotherAlive Social History Tobacco UseTypesPacks/DayYears UsedDateSmoking Tobacco: Never Assessed Tobacco Cessation:Counseling Given: Not Answered CommentsUnknownSex and Gender InformationValueDate RecordedSex Assigned at LxdvdBfyybp72/19/2023 7:50 PM EDTLegal FxiSqljls34/15/2023 6:37 PM EDTGender RnjneqmoZtaien07/19/2023 7:50 PM EDTSexual OrientationNot on file Plan of Treatment Not on file Insurance Care Teams Team MemberRelationshipSpecialtyStart DateEnd Date Yovani E[facility]ols MD [facility]
--- OUTSIDE RECORDS SUMMARY | 2025-05-31 12:01 | XMS_ITS | Patient Health Record ---
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 Role Phone Simon Echols Primary Care Provider Allergies Allergen (clinical drug ingredient) Drug/Non Drug Allergy documented on EMR Reaction Allergy Type Onset Date Status erythromycin Erythromycin anaphylaxis Drug Allergy Active Results Component Value Reference Range Notes CBC AUTO DIFF Reviewed date:06/02/2024 12:53:34 PM Interpretation: Performing Lab: Notes/Report: [facility] , White Blood Count 6.8 4.0-11.0 10 3/uL Red Blood Count4.524.20-5.40 10 6/oDZtuvuulvlj04.212.0-16.0 g/nOGvibczryuc94.7 36.0-48.0 %Mean Corpuscular Ihqxqs26.081.0-99.0 fLMean Corpuscular Hemoglobin 29.226.7-34.0 pgMean Corpuscular HGB Conc32.429.9-35.2 g/dLRed Cell Distribution Width12.211.0-15.0 %Platelet Rbjfn585866-014 10 3/uLMean Platelet Volume8.39.5- 13.5 fLNeutrophils Percent Auto71.343.0-75.0 %Lymphocytes Percent Auto24.220.5- 60.0 %Monocytes Percent Auto3.71.7-12.0 %Eosinophils Percent Auto0.40.9-7.0 % Basophils Percent Auto0.30.2-2.0 %Immature Granulocytes Pct Auto0.10.0-0.5 % Neutrophils Absolute Auto4.91.4-6.5 10 3/uLLymphocytes Absolute Auto1.71.2-3.8 10 3/uLMonocytes Absolute Auto0.30.3-0.8 10 3/uLEosinophils Absolute Auto0.00.0- 0.7 10 3/uLBasophils Absolute Auto0.00.0-0.1 10 3/uLImmature Granulocytes Abs Auto0.010.00-0.03 10 3/uLPerforming Lab:see noteML - [facility] LB RUBELLA AB IGG Reviewed date:09/21/2024 10:57:26 AM Interpretation: Performing Lab: Notes/Report: [facility] ,Rubella Antibodies, IgG2.02Immune >0.99 index Non-immune <0.90 Equivocal 0.90 - 0.99 Immune >0.99 Performing Lab:see noteLC - [facility] LBHIV Ab/p24 Ag with Reflex Reviewed date:09/21/2024 10:57:26 AM Interpretation: Performing Lab: Notes/Report: [facility] ,HIV Ab/p24 Ag ScreenNon ReactiveNon Reactive HIV-1/HIV-2 antibodies and HIV-1 p24 antigen were NOT detected. There is no laboratory evidence of HIV infection. HIV Negative Performed at: [address] [id number] Dental Technician Apprentice: Júnior Rosario PhD, Phone: [phone] Performing Lab:see note - [facility] LBRapid Plasma Reagin, Quant Reviewed date:09/21/2024 01:43:19 PM Interpretation: Performing Lab: Notes/Report: [facility] ,Rapid Plasma Reagin, QuantNon ReactiveNonRea<1:1 titer Please Note: This test does not meet current guidelines for screening and diagnosis of syphilis. This test is intended for following treatment response in patients being treated for syphilis infection. To screen for syphilis infection, a reflex cascade that includes both RPR and a treponema-specific assay should be utilized, such as Treponema pallidum (Syphilis) Screening [place] (047267) or Rapid Plasma Reagin (RPR) Test With Reflex to Quantitative RPR and Confirmatory Treponema pallidum Antibodies (975488). Performed at: [address] [id number] Dental Technician Apprentice: Júnior Rosario PhD, Phone: [phone] Performing Lab:see noteLC - [facility] LBAcute Hepatitis Reviewed date:09/21/2024 10:57:26 AM Interpretation: Performing Lab: Notes/Report: [facility] ,Hep A Ab, IgMNegativeNegative A negative anti-HAV IgM result suggests no recent or current HAV infection. HBsAg ScreenNegativeNegativeHep B Core Ab, IgMNegativeNegativeHCV AbNon Reactive Non ReactiveInterpretation:Comment. Not infected with HCV unless early or acute infection is suspected (which may be delayed in an immunocompromised individual), or other evidence exists to indicate HCV infection. Performing Lab:see noteLC - [facility] LBCT abdomen pelvis w con Reviewed date:05/29/2025 06:34:03 PM Interpretation: Performing Lab: Notes/Report: Source Facility: [place] [address] CT Scan Report Signed Patient: RIVERA OWENS MR#: [id number] : 1985 Acct:[id number] Age/Sex: 39 / F ADM Date: 05/28/25 Loc: ER Attending Dr: Ordering Physician: Ting Greer Date of Service: 05/28/25 Procedure(s): CT abdomen pelvis w con Accession Number(s): [id number] cc: Smiley Echols M.D. [place] [address] Patient Name: RIVERA OWENS MRN: [id number] date: 1985 Sex: F Assigned Patient Location: ER Current Patient Location: ER Accession/Order Number: [id number] Exam Date: 05/28/2025 16:15 Report Date: 05/28/2025 16:46 At the request of: TING DC Procedure: CT abdomen pelvis w con CT abdomen pelvis w con 05/28/2025 4:25 PM SIGNS AND SYMPTOMS: Abdominal pain, Right lower quad abdominal pain S.br TECHNIQUE: Multidetector ct axial images of the abdomen and pelvis were obtained with IV contrast. Multiplanar reformats were performed and reviewed to further define anatomy and possible pathology. CT was performed with one or more of the following dose reduction techniques: Automated exposure control, adjustment of the mA and/or kV according to patient size, or use of iterative reconstruction technique. COMPARISON: None. FINDINGS: Lower Chest: Within normal limits. ABDOMEN: Liver: Within normal limits. Bile Ducts: Normal caliber. Gallbladder: Previously removed Pancreas: Within normal limits. Spleen: Within normal limits. Adrenals: Within normal limits. Kidneys: Within normal limits. Pelvis: Reproductive Organs: No pelvic masses. Ureters: Within normal limits. Bladder: Within normal limits. Bowel: Normal caliber. There is a normal appendix in the right lower quadrant. Mesenteric Lymph Nodes: No enlarged mesenteric lymph nodes. Peritoneum: No ascites or free air, no fluid collection. Vessels: Atherosclerotic changes are noted in the abdominal aorta and its branches. Retroperitoneum: Within normal limits. Abdominal Wall: Within normal limits. Bones: Degenerative changes are noted in the lumbar spine. Degenerative changes are noted in the sacroiliac joints. CT/CT abdomen pelvis w con IMPRESSION: No bowel obstruction or obstructive uropathy. There is a normal appendix in the right lower quadrant. There is evidence of prior cholecystectomy. Impression dictated by: Bryan Reyes M.D. 05/28/2025 4:46 PM Dictation Location: [place] [address] Electronically authenticated by: [id number] Y Date: 05/28/2025 16:46 Dictated By: Bryan Reyes M.D. Signed By: 05/28/259 DD/ 45 TD/TT: [employer] Supervisor:XR chest 1V Reviewed date:05/29/2025 06:34:03 PM Interpretation: Performing Lab: Notes/Report: Source Facility: [place] [address] [place] [address] XRay Report Signed Patient: RIVERA OWENS MR#: [id number] : 1985 Acct:[id number] Age/Sex: 39 / F ADM Date: 05/28/25 Loc: ER Attending Dr: Ordering Physician: Ting Greer Date of Service: 05/28/25 Procedure(s): XR chest 1V Accession Number(s): [id number] cc: Smiley Echols M.D.; Ting Greer [address] [address] Patient Name: RIVERA OWENS MRN: [id number] date: 1985 Sex: F Assigned Patient Location: ER Current Patient Location: ER Accession/Order Number: [id number] Exam Date: 05/28/2025 15:52 Report Date: 05/28/2025 16:15 At the request of: TING DC Procedure: XR chest 1V XR chest 1V 05/28/2025 3:57 PM SIGNS AND SYMPTOMS: chest pain Y PROTOCOL: Frontal radiograph of the chest COMPARISON: 09/06/2021 FINDINGS: The trachea is midline. The heart and mediastinal structures are within normal limits. The lung parenchyma is clear. The bony thorax is intact. There is a dextro convex curvature of the thoracic spine. XR/XR chest 1V IMPRESSION: No acute cardiopulmonary pathology. Impression dictated by: Bryan Reyes M.D. 05/28/2025 4:15 PM Dictation Location: [place] [address] Electronically authenticated by: [id number] Y Date: 05/28/2025 16:15 Dictated By: Bryan Reyes M.D. 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 Measurements Intervals [place] Rate: 59 P: 36 MA: 156 QRS: 25 QRSD: 82 T: 21 QT: 396 QTc: 395 Interpretive Statements 1100 Sinus rhythm 8102 Low QRS voltage in chest leads 9120 atypical ECG Compared to ECG 09/06/2021 19:40:17 Low QRS voltage now present Sinus tachycardia no longer present Right-axis deviation no longer present Electronically Signed On 05-28-2025 15:43:21 EST by DEMERTIA BATRES M.D. Dictated By: DEMETRIA BATRES Signed By: 05/28/25 1543 DD/ 1519 TD/TT: [employer] Supervisor:MÓNICA Bynum, reflex to culture Reviewed date:05/29/2025 06:34:03 PM Interpretation: Performing Lab: Notes/Report: [facility] ,Color UrineLT. YELLOWYELLOWClarity UrineCLEARCLEARSpecific [place] Urine1.020 1.005-1.025pH Urine8.05.0-9.0Protein UrineNEGATIVENEG/TRACE mg/dLGlucose Urine UANEGATIVENEGATIVE mg/dLBilirubin UrineNEGATIVENEGATIVEKetones UrineNEGATIVE NEGATIVE mg/dLBlood UrineNEGATIVENEGATIVENitrite UrineNEGATIVENEGATIVE Urobilinogen Urine0.20.2-1.0 EU/dLLeukocyte Esterase UrineNEGATIVENEGATIVEWBC UrineNONE SEENNONE SEEN #/HPFRBC UrineNONE SEEN0-2 #/HPFBacteria UrineTRACENONE SEEN #/HPFMucus UrineNONE SEENNONE SEENSquamous Epithelial Cell UrineMANY NONE/RARE #/LPFCrystals Seen?None SeenNone Seen #/HPFCast Seen?NONE SEENNONE SEEN #/LPFPerforming Lab:see noteML - [facility] LBHCG Qualitative* Reviewed date:05/29/2025 06:34:03 PM Interpretation: Performing Lab: Notes/Report: [facility] ,HCG QualitativeNEGATIVENEGATIVEPerforming Lab:see noteML - [facility] LBTroponin I High Sensitivity Reviewed date:05/29/2025 06:34:03 PM Interpretation: Performing Lab: Notes/Report: [facility] ,Troponin I High Sensitivity4.34.0-51.3 pg/mL CUT-OFF POINTS HAVE BEEN ESTABLISHED BASED ON THE FOURTH UNIVERSAL DEFINITION OF MYOCARDIAL INFARCTION. THE UPPER REFERENCE LIMIT (URL) OF TROPONIN, DEFINED THE 99TH PERCENTILE OF cTnI DISTRIBUTION IN A REFERENCE POPULATION, HAS BEEN CONFIRMED THE DECISION THRESHOLD FOR ND DIAGNOSIS. 99TH PERCENTILE = 51.4 PG/ML NOTE: HIGH-SENSITIVITY TROPONIN ASSAY IS NOT INTENDED TO BE USED IN ISOLATION BUT SHOULD BE INTERPRETED IN CONJUNCTION WITH OTHER DIAGNOSTIC AND CLINICAL INFORMATION. Performing Lab:see note - [facility] LBPROF 14(COMP METB) Reviewed date:05/29/2025 06:34:03 PM Interpretation: Performing Lab: Notes/Report: [facility] ,Dzarqi833152-250 mmol/LPotassium4.63.5-5.1 mmol/PNkrthgku83462-790 mmol/LCarbon Hzruxdh60.321.0-32.0 mmol/LAnion Gap12.8Axkwpch2068-927 mg/dLBlood Urea Nitrogen 15.07.0-18.0 mg/dLCreatinine0.900.55-1.02 mg/dLEstimated GFR ( Elizabeth>60 >=60 mL/min/1.73m 2Estimated GFR (Non- Elise>60>=60 mL/min/1.73m 2BUN Creatinine Ratio16.1Gwofufn8.38.5-10.1 mg/dLBilirubin Total0.40.2-1.0 mg/dL Aspartate Amino Ooirmwfuynw6378-28 U/LAlanine Qregyvouhtmtzxof2605-45 U/L Alkaline Uvdchbhjmtq75076-844 U/LTotal Protein8.16.4-8.2 g/dLAlbumin Level3.7 3.4-5.0 g/dLGlobulin4.4Albumin Globulin Ratio0.8Performing Lab:see note - [facility] LBLIPASE Reviewed date:05/29/2025 06:34:03 PM Interpretation: Performing Lab: Notes/Report: [facility] ,Qygeyd00.016.0-77.0 U/LPerforming Lab:see noteML - [facility] LB D-DIMER Reviewed date:05/29/2025 06:34:03 PM Interpretation: Performing Lab: Notes/Report: [facility] ,D Dimer<0.19<=0.59 mg/L FEU Increases in D-Dimer concentration observed with thromboembolic events can be variable due to localization, size, and age of the thrombus. Therefore, a thromboembolic event cannot be diagnosed with certainty on the basis of the reference range. D-Dimers may also be elevated for a variety of disorders including advanced age, , coronary disease, cancer, liver disease, infection, inflammation, hematoma, DIC, trauma, post-surgery, diabetes, thrombolytic or anticoagulant therapy, stress, and generalized hospitalization. Performing Lab:see noteML - [facility] LBCBC AUTO DIFF Reviewed date:05/29/2025 06:34:03 PM Interpretation: Performing Lab: Notes/Report: [facility] ,White Blood Count8.04.0-11.0 10 3/uLRed Blood Count4.694.20-5.40 10 6/uL Snrzttadsj39.812.0-16.0 g/qHPfrnwflnjw04.636.0-48.0 %Mean Corpuscular Lrzqny04.7 81.0-99.0 fLMean Corpuscular Gojwqchixi71.426.7-34.0 pgMean Corpuscular HGB Conc 33.229.9-35.2 g/dLRed Cell Distribution Width12.011.0-15.0 %Platelet Yhjcf099 150-450 10 3/uLMean Platelet Volume8.49.5-13.5 fLNeutrophils Percent Auto72.4 43.0-75.0 %Lymphocytes Percent Auto22.420.5-60.0 %Monocytes Percent Auto4.11.7- 12.0 %Eosinophils Percent Auto0.30.9-7.0 %Basophils Percent Auto0.50.2-2.0 % Immature Granulocytes Pct Auto0.30.0-0.5 %Neutrophils Absolute Auto5.81.4-6.5 10 3/uLLymphocytes Absolute Auto1.81.2-3.8 10 3/uLMonocytes Absolute Auto0.30.3-0.8 10 3/uLEosinophils Absolute Auto0.00.0-0.7 10 3/uLBasophils Absolute Auto0.00.0- 0.1 10 3/uLImmature Granulocytes Abs Auto0.020.00-0.03 10 3/uLPerforming Lab:see noteML - [facility] LBUS pelvis transvaginal Reviewed date:09/22/2024 07:32:35 PM Interpretation: Performing Lab: Notes/Report: Source Facility: [place] [address] Ultrasound Report Signed Patient: RIVERA OWENS MR#: [id number] : 1985 Acct:[id number] Age/Sex: 39 / F ADM Date: 09/22/24 Loc: US Attending Dr: Smiley Echols M.D. Ordering Physician: Smiley Echols M.D. Date of Service: 09/22/24 Procedure(s): US pelvis transvaginal Accession Number(s): [id number] cc: Smiley Echols M.D. [place] [address] Patient Name: RIVERA OWENS MRN: [id number] date: 1985 Sex: F Assigned Patient Location: Current Patient Location: US Accession/Order Number: [id number] Exam Date: 09/22/2024 11:42 Report Date: 09/22/2024 11:45 At the request of: SMILEY ECHOLS MD Procedure: US pelvis transvaginal TRANSABDOMINAL AND [...] Gordy Gomez M.D.09/22/2024 11:45 AM Dictation Location: [place] [address] Electronically authenticated by: [id number] Y Date: 09/22/2024 11:45 Dictated By: Gordy Gomez D.O. Signed By: 09/22/24 1148 DD/ 1145 TD/TT: [employer] Supervisor:Progesterone Reviewed date:09/21/2024 01:43:19 PM Interpretation: Performing Lab: Notes/Report: [facility] ,Progesterone0.4. ng/mL Follicular phase 0.1 - 0.9 Luteal phase 1.8 - 23.9 Ovulation phase 0.1 - 12.0 First trimester 11.0 - 44.3 Second trimester 25.4 - 83.3 Third trimester 58.7 - 214.0 Postmenopausal 0.0 - 0.1 Performed at: [address] [id number] Dental Technician Apprentice: Júnior Rosario PhD, Phone: [phone] Performing Lab:see [facility] LBType and Screen Reviewed date:09/20/2024 12:09:49 PM Interpretation: Performing Lab: Notes/Report: [facility] ,Blood TypeO PositiveAntibody ScreenNEGATIVEPROF 14(COMP METB) Reviewed date:09/20/2024 12:09:49 PM Interpretation: Performing Lab: Notes/Report: [facility] ,Derirs827361-104 mmol/LPotassium4.03.5-5.1 mmol/YQnfcbesa95388-745 mmol/LCarbon Usaodmq96.921.0-32.0 mmol/LAnion Gap12.8Wiioxlp95270-188 mg/dLBlood Urea Rngrfymm15.07.0-18.0 mg/dLCreatinine0.920.55-1.02 mg/dLEstimated GFR ( Elizabeth>60>=60 mL/min/1.73m 2Estimated GFR (Non- Elise>60>=60 mL/min/1.73m 2BUN Creatinine Ratio19.8Edcpwke9.08.5-10.1 mg/dLBilirubin Total0.20.2-1.0 mg/dL Aspartate Amino Rvlhipqhpyz2249-09 U/LAlanine Gttmgacalmwsstpk9622-40 U/L Alkaline Wquukaulgtg02356-386 U/LTotal Protein7.36.4-8.2 g/dLAlbumin Level3.2 3.4-5.0 g/dLGlobulin4.1Albumin Globulin Ratio0.8Performing Lab:see note - [facility] LBPREG QUANT HCG Reviewed date:09/20/2024 12:09:49 PM Interpretation: Performing Lab: Notes/Report: [facility] ,HCG Quantitative<1 5-50 0.2-1 WEEK 50-500 1-2 WEEKS 100-5,000 2-3 WEEKS 500-10,000 3-4 WEEKS 1,000-50,000 4-5 WEEKS 10,000-100,000 5-6 WEEKS 15,000-200,000 6-8 WEEKS 10,000-100,000 2-3 MONTHS Performing Lab:see note - [facility] LBGLYCOHEMOGLOBIN A1C Reviewed date:09/20/2024 12:09:49 PM Interpretation: Performing Lab: Notes/Report: [facility] ,Glycohemoglobin A1C5.54.5-6.2 % ADA RECOMMENDED LIMIT 4.0 - 6.0 ADA THERAPEUTIC TARGET < 7.0 ACTION SUGGESTED > 7.0 Estimated Average Weblodx330Cigxknzvfn Lab:see note - [facility] LB CBC AUTO DIFF Reviewed date:09/20/2024 12:09:49 PM Interpretation: Performing Lab: Notes/Report: [facility] ,White Blood Count7.84.0-11.0 10 3/uLRed Blood Count4.474.20-5.40 10 6/uL Uygveljhui58.312.0-16.0 g/vCEzvxjtatdb15.436.0-48.0 %Mean Corpuscular Qxctvq36.4 81.0-99.0 fLMean Corpuscular Vmhviqtdmd05.826.7-34.0 pgMean Corpuscular HGB Conc 32.929.9-35.2 g/dLRed Cell Distribution Width12.111.0-15.0 %Platelet Pljdg100 150-450 10 3/uLMean Platelet Volume8.59.5-13.5 fLNeutrophils Percent Auto57.7 43.0-75.0 %Lymphocytes Percent Auto36.020.5-60.0 %Monocytes Percent Auto5.11.7- 12.0 %Eosinophils Percent Auto0.50.9-7.0 %Basophils Percent Auto0.40.2-2.0 % Immature Granulocytes Pct Auto0.30.0-0.5 %Neutrophils Absolute Auto4.51.4-6.5 10 3/uLLymphocytes Absolute Auto2.81.2-3.8 10 3/uLMonocytes Absolute Auto0.40.3-0.8 10 3/uLEosinophils Absolute Auto0.00.0-0.7 10 3/uLBasophils Absolute Auto0.00.0- 0.1 10 3/uLImmature Granulocytes Abs Auto0.020.00-0.03 10 3/uLPerforming Lab:see noteML - [facility] LBTSH Reviewed date:06/02/2024 03:46:10 PM Interpretation: Performing Lab: Notes/Report: [facility] ,Thyroid Stimulating Hormone0.8550.358-3.740 uIU/mLPerforming Lab:see noteML - [facility] LBT4 Reviewed date:06/02/2024 03:46:10 PM Interpretation: Performing Lab: Notes/Report: [facility] ,T4 Thyroxine7.204.80-13.90 ug/dLPerforming Lab:see noteML - [facility] LBPROF 14(COMP METB) Reviewed date:06/02/2024 03:46:10 PM Interpretation: Performing Lab: Notes/Report: [facility] ,Ogjurp556229-661 mmol/LPotassium4.73.5-5.1 mmol/VAbershcx01261-095 mmol/LCarbon Xrcvdhg27.121.0-32.0 mmol/LAnion Gap8.2Icgpdnp6649-271 mg/dLBlood Urea Nitrogen 23.07.0-18.0 mg/dLCreatinine1.030.55-1.02 mg/dLEstimated GFR ( Elizabeth>60 >=60 mL/min/1.73m 2Estimated GFR (Non- Ame60>=60 mL/min/1.73m 2BUN Creatinine Ratio22.5Ubzkqgu3.28.5-10.1 mg/dLBilirubin Total0.40.2-1.0 mg/dL Aspartate Amino Sbviqrtammc5207-31 U/LAlanine Icpkmoishelrutyb7655-45 U/L Alkaline Qcgqdrcupwh05075-733 U/LTotal Protein7.76.4-8.2 g/dLAlbumin Level3.3 3.4-5.0 g/dLGlobulin4.4Albumin Globulin Ratio0.8Performing Lab:see noteML - [facility] LBLIPID PROFILE Reviewed date:06/02/2024 03:46:10 PM Interpretation: Performing Lab: Notes/Report: [facility] ,Kiafqcsdclkpb20<=150 mg/bKVkrosxkfmbc518<=200 mg/dLHDL Skrepmhipqy7793-03 mg/dL > or =60 mg/dl - LOW CARDIOVASCULAR RISK <40 mg/dl - HIGH CARDIOVASCULAR RISK LDL Cholesterol Frwqkjqszg54.0 <100 mg/dl OPTIMAL 100-129 mg/dl NEAR OR ABOVE OPTIMAL 130-159 mg/dl BORDERLINE HIGH 160-189 mg/dl HIGH >190 mg/dl VERY HIGH VLDL CHOLESTEROL9.0Chol HDL Ratio2.5 3.3 - 4.4 LOW RISK 4.4 - 7.1 AVERAGE RISK 7.1 - 11.0 MODERATE RISK >11.0 HIGH RISK Performing Lab:see note - [facility] LBIRON Reviewed date:06/02/2024 03:46:10 PM Interpretation: Performing Lab: Notes/Report: [facility] ,Iron70.050.0-170.0 ug/dLPerforming Lab:see note - [facility] LB INSULIN Reviewed date:06/03/2024 04:22:14 PM Interpretation: Performing Lab: Notes/Report: [facility] ,Bydwkbc76.02.6-24.9 uIU/mL Performed at: [facility] [address] [id number] Dental Technician Apprentice: Júnior Rosario PhD, Phone: [phone] Performing Lab:see note - [facility] LBGLYCOHEMOGLOBIN A1C Reviewed date:06/02/2024 03:46:10 PM Interpretation: Performing Lab: Notes/Report: [facility] ,Glycohemoglobin A1C5.84.5-6.2 % ADA RECOMMENDED LIMIT 4.0 - 6.0 ADA THERAPEUTIC TARGET < 7.0 ACTION SUGGESTED > 7.0 Estimated Average Ctibkil891Zbcskfyqzs Lab:see noteML - [facility] LB FREE T3 Reviewed date:06/02/2024 03:46:10 PM Interpretation: Performing Lab: Notes/Report: [facility] ,Chandni T32.302.18-3.98 pg/mLPerforming Lab:see noteML - [facility] Reason For Referral No Information Medications Medication SIG (Take, Route, Frequency, Duration) Notes Start Date End Date Status ALPRAZolam 0.5 MG 1 tablet Orally TID; Duration: 30 days As needed - F41.9 5ActiveLisinopril 20 MG1 tablet Orally Once a day; Duration: 90 days ActiveFerrous Sulfate 325 (65 Fe) MG1 tablet Orally DailyActiveMethadone HCl 10 MG/5ML45 ml Orally ONCE DAILYActiveMagnesium Oxide 400 (240 Mg) MG1 tablet Orally Once a day; Duration: 90 daysActivePotassium Chloride Shelli ER 20 MEQ1 tablet Orally [...] alcohol in the p ast year? No Kyzxiy7TagsdyxuiclhlzBwtmeajgGDHNV-A (Standard) Question Answer Notes Did you have a drink containing alcohol in the p ast year? No Jvnfsr6AcuerhnktfcyhgGcjfazse Problems Problem Type SNOMED Code ICD Code Onset Dates Problem Status W/U Status Risk Notes Problem Hypomagnesemia (258788080) Hypomagnesemia (E83.42) ActiveconfirmedProblemAcute frontal sinusitis (02509677)Acute recurrent frontal sinusitis (J01.11)ActiveconfirmedProblemFuruncle of abdominal wall (59335607) Furuncle of abdominal wall (L02.221)ActiveconfirmedProblemChest pain (69857645) Other chest pain (R07.89)ActiveconfirmedProblemLeft lower quadrant pain (094739297)Left lower quadrant pain (R10.32)ActiveconfirmedProblemOpen wound of breast without complication (27345958)Puncture wound without foreign body of right breast, initial encounter (S21.031A)ActiveconfirmedProblemPsoriasis (5049992)Psoriasis (L40.9)ActiveconfirmedProblemMorbid obesity (504535369)Morbid obesity (E66.01)ActiveconfirmedProblemHypertension (41071087)Hypertension (I10) ActiveconfirmedProblemAnxiety (26181165)Anxiety (F41.9)ActiveconfirmedProblem Sleep apnea (46656206)Sleep apnea (G47.30)ActiveconfirmedProblemObstructive sleep apnea (95313070)Obstructive sleep apnea (G47.33)ActiveconfirmedProblem Eczema (75445156)Eczema (L30.9)ActiveconfirmedProblemMigraine (07717029)Migraine (G43.909)ActiveconfirmedProblemPain in limb (67865858)Foot pain, left (M79.672) ActiveconfirmedProblemAcute sinusitis (51084657)Acute sinusitis (J01.90)Active confirmedProblemWell adult (439766818)Well adult (Z00.00)ActiveconfirmedProblem Dysphagia (00916007)Dysphagia (R13.10)ActiveconfirmedProblemBoil (19809368)Boil (L02.92)ActiveconfirmedProblemPain of left knee region (finding) (166895829952609)Knee pain, left (M25.562)ActiveconfirmedProblemCervical disc disorder (703778869)DDD (degenerative disc disease), cervical (M50.30)Active confirmedProblemAdrenal adenoma (427661168)Adrenal adenoma (D35.00)Active confirmedProblemContact dermatitis (41275661)Contact dermatitis (L25.9)Active confirmedProblemStreptococcal sore throat (disorder) (32501161)Strep pharyngitis (J02.0)ActiveconfirmedProblemOverweight (511531022)Over weight (E66.3)Active confirmedProblemPain in left arm (367959772)Left arm pain (M79.602)Active confirmedProblemDysfunctional uterine bleeding (54578110480266)Dysfunctional uterine bleeding (N93.8)ActiveconfirmedProblemAcute gastroenteritis (91003543) Acute gastroenteritis (K52.9)ActiveconfirmedProblemHand cramps (569623947)Hand cramps (R25.2)ActiveconfirmedProblemPain in finger of left hand (850396637905539)Pain in finger of left hand (M79.645)ActiveconfirmedProblem Arthralgia of the ankle and/or foot (606797872)Pain in joint, ankle and foot, left (M25.572)ActiveconfirmedProblemBreast hematoma (625466129)Breast hematoma (N64.89)ActiveconfirmedProblemBenign neoplasm of adrenal gland (06429022) Adenoma, adrenal cortical (D35.00)ActiveconfirmedProblemHypertensive urgency (931745573)Hypertensive urgency (I16.0)ActiveconfirmedProblemDyspareunia (20783641)Unspecified dyspareunia (N94.10)ActiveconfirmedProblemPatellar pain, right (M25.561)ActiveconfirmedProblemDerangement of knee (92869371)Knee internal derangement, unspecified laterality (M23.90)ActiveconfirmedProblemBreast mass (13923855)Breast mass (N63.0)ActiveconfirmedProblemLump in upper outer quadrant of right breast (finding) ([id number])Unspecified lump in the right breast, upper outer quadrant (N63.11)ActiveconfirmedProblemBoil of back (257596987)Boil, back (L02.222)ActiveconfirmedProblemLow back pain (928578317)Low back pain, unspecified (M54.50)Activeconfirmed Vital Signs Temperature 98.6 degrees Fahrenheit 07/06/2024 Blood pressure cutglmmdn53 mm Hg05/31/20251940Ltekvj06 in05/31/2025lood pressure onlpjdcn839 mm Hg05/31/20253405Htbyzf191.2 lbs108/01/2024BMI43.11 kg/m205/31/2025 Encounters Encounter Location Date Provider Diagnosis [facility] [address] [place] [address] 07/06/2024 Simon Lloydy Acute bronchitis, unspecified organism J20.9 [facility] [address] [place] [address] 06/02/2024 Simon Hoy Hypertension I10 ; M orbid obesity E66.01 and Sleep apnea G47.30 [facility] [address] [place] [address] 05/31/2025 Simon Lloydy Well adult Z00.00 an d Hypertension I10 [facility] [address] [place] [address] 09/21/2024 Simon Lloydy Dysfunctional uterin e bleeding N93.8 [facility] [address] [place] [address] 09/28/2024 Simon Hoy Hypertension I10 ; Obstructive sleep apnea G47.33 and Anxiety F41.9 [facility] [address] [place] [address] 10/04/2024 Simon Hoy Hypomagnesemia E83.4 2 ; Hypertension I10 and Sleep apnea G47.30 [facility] [address] [place] [address] 10/12/2024 Simon Hoy Hypomagnesemia E83.4 2 ; Hypertension I10 and Obstructive sleep apnea G47.33 [facility] [address] [place] [address] 12/05/2024 Simon Hoy Anxiety F41.9 [facility] [address] [place] [address] 06/02/2024 Simon Hoy [facility] [place] [address] 06/16/2024[facility] [place] [address]/[facility] [place] [address]/[facility] [place] [address]/Doug [facility] [facility] [place] [address]/07/2024[facility] [facility] [place] [address]/ Simon HoyHypertension S63VoetrtwWray Community District Hospital[address] [facility] [place] [address]/01/2025Doug HoyHypertension I10[facility] [place] [address]/Doug HoyHypertension F47MiwzlfuWray Community District Hospital[address] [facility] [place] [address] 12/02/2024Doug HoyHypertension D35HwyopuxWray Community District Hospital[address] [facility] [place] [address]/02/2025[facility] [address] [place] [address]/09/2024Doug HoyAnxiety F41.9B[facility] [facility] [place] [address]/06/2024 Simon Hoy Assessments Encounter Date Diagnosis (ICD Code) Assessment Notes Treatment Notes Treatment Clinical Notes Section Notes 06/02/2024 Hypertension (ICD-10 - I10) 06/02/2024Morbid obesity (ICD-10 - E66.01)07/06/2024ute bronchitis, unspecified organism (ICD-10 - J20.9)Rest and drink more liquids, especially water. You may use a humidifier or vaporizer to help keep the drainage moist. Qbjd-msr-osyvkqy Nasal Saline may help the stuffy and runny nose. Use Ibuprofen and or Tylenol as needed for fever, chills, body aches or pain. Children 5 years old should not be given tmqn-rwu-npdouyr cough and cold medications such as guaifenesin and dextromethorphan. If you're over age 5, you may try oaah-yfj-ktjtksh cold medications such as guaifenesin and dextromethorphan, [...] chest pain you should go to the [facility] room or call [id number] uterine bleeding (ICD-10 - N93.8) 09/28/2024Hypertension (ICD-10 - I10)09/28/2024Obstructive sleep apnea (ICD-10 - G47.33)12/05/2024nxiety (ICD-10 - F41.9)disucsse dneed for bumped up dose prn fo rne couple months with travelin [place] prn with trip05/31/2025Well adult (ICD-10 - Z00.00)05/31/2025Hypertension (ICD-10 - I10)hoding BP meds - stopping in next wek for BP check10/04/2024Hypomagnesemia (ICD-10 - E83.42)10/04/2024Hypertension (ICD-10 - I10)blood pressure good hajepln6210/12/2024Hypomagnesemia (ICD-10 - E83.42)10/12/2024Hypertension (ICD-10 - I10)10/19/2024Hypertension (ICD-10 - I10)11/03/2024Hypertension (ICD-10 - I10)11/16/2024Hypertension (ICD-10 - I10) 12/02/2024Hypertension (ICD-10 - I10)5Anxiety (ICD-10 - F41.9) 10/12/2024Obstructive sleep apnea (ICD-10 - G47.33)10/04/2024Sleep apnea (ICD-10 - G47.30)09/28/2024nxiety (ICD-10 - F41.9)change to xanax for easier taper - cant fill till becyxm9706/02/2024Sleep apnea (ICD-10 - G47.30) Plan Of Treatment Pending Test Test Name Order Date CMP (COMPLETE METABOLIC PANEL) 3 CMP (COMPLETE METABOLIC PANEL) 4 CMP (COMPLETE METABOLIC PANEL) HEMOGLOBIN A1C (GLYCO) 06/02/2024 HEMOGLOBIN A1C (GLYCO) 01/20/2023 HEMOGLOBIN A1C (GLYCO) 07/21/2023 HEMOGLOBIN A1C (GLYCO) 05/31/2025 IRON, TOTAL 05/31/2025 IRON, TOTAL 01/20/2023 IRON, TOTAL 07/21/2023 IRON, TOTAL 06/02/2024 LIPID PANEL (CHOL/TRIG/HDL/LDL) 06/02/20 24 LIPID PANEL (CHOL/TRIG/HDL/LDL) 07/21/19 24 LIPID PANEL (CHOL/TRIG/HDL/LDL) 01/21/20 23 LIPID PANEL (CHOL/TRIG/HDL/LDL) 05/31/20 25 CBC WITH DIFF (EXP 04/2025) 01/20/2023 CBC WITH DIFF (EXP 04/2025) 07/21/2023 CBC WITH DIFF (EXP 04/2025) 06/02/2024 VITAMIN D, 25 LEVEL (TOTAL) 07/21/2023 VITAMIN D, 25 LEVEL (TOTAL) 05/31/2025 US Lower Extremity LT 01/20/2023 US Lower Extremity RT 01/20/2023 US Soft Tissue Neck/Head 11/26/2022 RHEUMATOID PANEL 08/17/2023 Insulin Level 06/02/2024 Insulin Level 01/20/2023 Insulin Level 05/31/2025 Insulin Level 07/21/2023 Barium Swallow - Modified 11/26/2022 CBC W/AUTO DIFF 03/05/2023 US Upper Ext Nonvascular Complete RT STOOL OCCULT BLOOD 05/31/2025 BNP 01/20/2023 CBC AUTO DIFF 08/17/2023 FERRITIN 03/05/2023 IRON 03/05/2023 MAGNESIUM 01/20/2023 MAGNESIUM 08/17/2023 PROF 14(COMP METB) 08/17/2023 SED RATE WESTERGREN 08/17/2023 MRI KNEE RT WO CON 03/07/2024 US PELVIS 05/17/2024 US PELVIS AND TRANSVAG 09/21/2024 THYROID PANEL (T4/TSH/FREE T3) 4 THYROID PANEL (T4/TSH/FREE T3) 4 THYROID PANEL (T4/TSH/FREE T3) 4 THYROID PANEL (T4/TSH/FREE T3) 5 THYROID PANEL (T4/TSH/FREE T3) 3 MM diagnostic mammo BI 02/23/2024 CMP (COMP MET CORONADO) w/eGFR CKD-EPI 2024 CBC WITH DIFF 05/31/2025 Insurance Providers Payer Name Payer Address Payer Phone Subscriber Number Group Number Insured Name Patient Relationship to Insured Coverage Start Date Coverage End Date [employer] [place] [employer] [address] [place] [phone] [id number] Shirley Owens - patient is the insured Medications Administered Medication Instructions Date of Administration Dosage Notes Kenalog-40 mgKetorolac Yqbbnelgcqct13/09/202460 pd71Ltxcxomju Tromethamine mg60 Medical (General) History Medical History [...] pain, unspecified M54.50 Surgical History Surgery Date(Month/Year) Left Chondroplasty 01/01/23 Partial lateral meniscectomy 01/01/23 Gall Bladder Removal Cyst Removal from Adrenal GlandCyst Removal on TailboneC Section X 2Ear Tubes Hospitalization History Reason Date(Month/Year) left lap adrenalectomy 2019 heart cath 2016 hypertension urgency 2020
--- OUTSIDE RECORDS SUMMARY | 2025-05-31 12:01 | XMS_ITS | Patient Health Record ---
Author Organization [facility] Address [address] [place] [address] Care Team Providers Care Artist Model Name Role Phone Dr. Dwaine Bates Primary Care Provider MatiCathy Unavailable [phone] Nabila Villalba Unavailable [phone] Ariane Virgen Unavailable [phone] Reason For Referral No Information Medications Medication [...] Problem Status W/U Status Risk Notes Problem Dental caries on pit and fissure surface penetrating into dentin ([id number]) Dental caries on pit and fissure surface penetrating into dentin (K02.52) Activeconfirmed Encounters Encounter Location Date Provider Diagnosis [facility] [address] [place] [address] 06/02/2024 Dwaine Bates Encounter for dental examination and cleaning with abnormal findings Z01. [facility] [address] [address] 06/28/2024 Dwaine Bates Encounter for dental examination and cleaning with abnormal findings Z01.21 [facility] [address] [place] [address] 09/16/2024 Dwaine Bates Assessments Encounter Date Diagnosis [...] Start Date Coverage End Date Wrap [facility] [place] [employer] [address] [place] [address] [id number] NABILA OWENS Self - patient is the insured 3 [employer] [place] [employer] [address] [address] [place] [address] [id number] NABILA OWENS Self - patient is the insured 3 [employer] [facility] [address] [place] [id number] [id number] OWENSSelf - patient is the jucuhqw23 2022
--- OUTSIDE RECORDS SUMMARY | 2025-05-31 12:01 | XMS_ITS | Clinical Summary ---
Author Organization [facility] Address [address] [place], [place] [address] Care Team Providers Care Blanket Binder Name Role Phone Yovani Echols MD Primary Care Provider [phone] Serafin Bartlett DO Unavailable [phone] Rolando Rausch DO Unavailable [phone] Zehra Holly EMBOSSOGRAPH OPERATOR Unavailable [phone] Allergies No known active allergies Medications MedicationSigDispense QuantityRefillsLast FilledStart DateEnd DateStatus potassium chloride in water 20 mEq/100 mL IVPB Inject 20 mEq intravenously one time only.Active ALPRAZolam (XANAX) 0.5 mg tablet TAKE 1 TABLET BY ORAL ROUTE 2 TIMES PER DAY NEEDED FOR EYXSERR2510/31/2021 Active lisinopril (ZESTRIL, PRINIVIL) 20 mg tablet Take 20 mg by mouth once daily.10/30/2021ctive magnesium oxide (MAG-OX) 400 mg (241.3 mg magnesium) tablet Take 1 tablet by mouth twice daily.10/30/2021ctive methadone HCl (METHADONE ORAL) Take 52 mg by mouth once daily.Active Active Problems ProblemNoted DateDiagnosed DateAdrenal qegeca4905/18/2015HTN (hypertension)MONIQUE (obstructive sleep apnea)FatigueChest pain Family History Medical UuiqqulYpagzgtrRgkqsspsVhpziqqtAuojtqPgwqxJdbdcrgrljs0GggxtsdokbkrUidkpo HypertensionMotherRelationStatusCommentsBrotherAliveFatherAliveMotherAliveSister Alive Social History Tobacco UseTypesPacks/DayYears UsedDateSmoking Tobacco: FormerCigarettes0.510 08/15/2009 - 08/15/2019Smokeless Tobacco: Never Tobacco Cessation:Counseling Given: Not Answered Alcohol UseStandard Drinks/WeekCommentsNo0 (1 standard drink = 0.6 oz pure alcohol)Area Deprivation IndexAnswerDate RecordedNational Score (1-100), lower number is lower lyro000207/26/2022State Score (1-10), lower number is lower risk Not on file3Data from: https://www.neighborhoodatlas.[facility]/. Last address used for zuonxzqfay[address] [place], [place] [address]CommentsNoSex and Gender Information ValueDate RecordedSex Assigned at BirthNot on fileLegal GjkBjoboo00/04/2014 3:11 PM EDTGender IdentityNot on fileSexual OrientationNot on fileOccupationIndustry Job Start DateJob End DatestudentNot on fileNot on fileNot on file Last Filed Vital Signs Vital SignReadingTime TakenCommentsBlood Gyxfphfu357/8402/03/2022 10:50 AM EDT Bscnb396502/03/2022 10:50 AM FADHmqhpeltdum30.5 ??C (97.7 ??F)05/18/2015 9:50 AM ESTRespiratory Jmyq766903/02/2015 10:04 AM EDTOxygen Zixawqafxk12%02/03/2022 10:50 AM EDTInhaled Oxygen Concentration--Ysjvje246.7 kg (270 lb 8 oz)02/03/2022 10:50 AM IEJLbnqtj774.9 cm (5' 1 )02/03/2022 10:50 AM EDTBody Mass Index51.11 02/03/2022 10:50 AM EDT Plan of Treatment Health MaintenanceDue DateLast DoneCommentsAnxiety Ktuzudlww64/05/2004Depression Nkhbfctmw66/05/2004HIV Lfisyrwzx83/05/2004Hepatitis C Usvjuvdby13/05/2004 Hepatitis B Vaccine (1 of 3 - 19+ 3-dose series)2004Cervical Cancer Qwinwmvvb73/05/2007HPV Vaccine (1 - 3-dose SCDM series)2012DTaP,Tdap,Td Vaccine (6 - Tdap), 09/20/1990, 03/12/1987, Additional history existsCovid-19 Vaccine (2024- season)2025Influenza Vaccine (#1)2025 Insurance * Guarantor: Nabila Jewell TypeRelation to PatientDate of BirthPhone Billing AddressPersonal/EbcdixNquz02/05/1986 [place] [address] * Guarantor: Nabila Jewell TypeRelation to PatientDate of BirthPhone Billing AddressWorkers EqejCwek33/05/1986 [place] [address] , [address] [address] * Guarantor: Nabila Jewell TypeRelation to PatientDate of BirthPhone Billing AddressWorkers QwscYctt68/05/1986 [place] [address] MemberSubscriberPlan / Payer (Effective 2021-Present)Name:Nabila Jewell Relation to Subscriber:SelfName:Nabila Jewell Payer ID:Not on file Group ID:Not on file [place] Address: [address] [place] [id number] Care Teams Team MemberRelationshipSpecialtyStart Date Yovani Echols MD PCP - GeneralFamily Medicine03/02/14 Serafin Bartlett DO [address] [place] [address] UtarwimwkIfcmljhrg82/17/19 Rolando Rausch DO [address] [address] ReferringOrthopedics10/11/21 Zehra Holly CNP [address] [place], [place] [address] ReferringFamily Medicine11/19/21
--- OUTSIDE RECORDS SUMMARY | 2025-05-31 12:01 | XMS_ITS | Clinical Summary ---
Author Organization [facility] Address [address] [place] [address] Phone Care Team Providers Care Liquid Sugar Fortifier Name Role Phone Yovani Echols MD Primary Care Provider [phone] Social History Tobacco UseTypesPacks/DayYears UsedDateSmoking Tobacco: Never Assessed CommentsUnknownSex and Gender InformationValueDate RecordedSex Assigned at Not on fileLegal MecOfsncy84/26/2022 4:03 PM ESTGender IdentityNot on fileSexual OrientationNot on file Plan of Treatment Not on file Care Teams Team MemberRelationshipSpecialtyStart DateEnd Date Yovani Echols MD [address] [phone] [facility] - General02/28/20
--- OUTSIDE RECORDS SUMMARY | 2025-05-31 12:02 | XMS_ITS | Clinical Summary ---
Author Organization [facility] Address [address] [facility] [place] [address] Care Team Providers Care Cardiograph Operator Name Role Phone Unavailable Primary Care Provider Unavailabl e Source Comments The following information is NOT included in Care Everywhere downloads:Psychiatric notes, ECG results, Cardiac Rehab notes, Pulmonary Function notes, data from SmartForms (includes but not limited toPregnancy data,audiograms, eye exams, pre-surgical evaluation notes, well-child exam data).[facility] Immunizations ImmunizationAdministration DatesNext DueTd (adult), 5 Lf tetanus toxoid, preservative free, adsorbed (YVH=265)02/12/2018 Social History Tobacco UseTypesPacks/DayYears UsedDateSmoking Tobacco: Never Assessed CommentsUnknownSex and Gender InformationValueDate RecordedSex Assigned at Not on fileLegal RqlUfmqfr89/29/2022 1:59 PM EDTGender IdentityNot on fileSexual OrientationNot on file Plan of Treatment Health MaintenanceDue DateLast DoneCommentsMammography (shared decision-making, age 35-39)1985HIV Test2000Hepatitis C Khczfmld59/05/2004Tdap Booster 09/01/2003Hepatitis A (HAV) Vaccine (optional start 19+ years)2004 Hepatitis B (HBV) Vaccine (1 of 3 - 19+ 3-dose series)2004Pap Smear 2006HPV Vaccine (optional start 27-45 years)2012COVID-19 Vaccine ( - 2024- season)2025Influenza Vaccine (#1)2025Tetanus (Td or Tdap) Mykxcdy72Shingles (RZV) Vaccine (1 of 2)09/01/2035Mammography DiscontinuedPneumococcal Vaccine(s)Aged OutNo longer eligible based on patient's age to complete this topic
--- OUTSIDE RECORDS SUMMARY | 2025-05-31 12:02 | XMS_ITS | Clinical Summary ---
Author Organization [facility] Address [address] [place] [address] Care Team Providers Care Spray Foam Installer Name Role Phone Yovani Echols MD Primary Care Provider [phone] Allergies Active AllergyReactionsCriticalityNoted DateCommentsErythromycinAnaphylaxisHigh 04/03/2022Erythromycin Svmjoeavwbsw85/06/2022 Medications MedicationSigDispense QuantityRefillsLast FilledStart DateEnd DateStatus magnesium [...] BY MOUTH TWICE A DAY NEEDED FOR IGWBSZV9510/31/2021ctive methadone (Dolophine) 5 mg/5 mL solution Take 52 mg by mouth in the morning.04/03/2021ctive SUMAtriptan (Imitrex) 50 mg tablet Take 50 mg by mouth if needed.10/15/2021ctive amitriptyline (Elavil) 25 mg tablet Indications:Traumatic brain injury, without loss of consciousness, initial encounter (CMS/[facility])TAKE 1 TABLET EVERY DAY BY ORAL ROUTE AT BEDTIME FOR 30 DAYS. 30 tablet ctive Additional Information Patient taking differently: 25 mg oral Nightly, (No instructions reported), Reported on 12/23/2022 Active Problems ProblemNoted DateDiagnosed DateChondromalacia, left knee3Discoid meniscus of left knee3Carbuncle of back except zwtmfdz0404/28/2022 Degeneration of intervertebral disc of cervical jmwuor0104/28/2022ysmenorrhea 04/28/20221598Xfuwjj33/31/2022Furuncle of abdominal wall04/28/2022Hypokalemia 04/28/20221416Engrhnbxkgeimr00/31/2022Morbid jpcjeje1104/28/20229217Ddffjibxc72/31/2022 Head jmxwhd7512/10/2021ontusion of knee12/10/2021prain of right knee12/10/2021 Zetqsft7607/17/2021HTN (hypertension)07/17/2021leep apnea07/17/2021Hypertensive hubycfo6107/11/2019Anxiety state08/13/2017Chest wall pain08/13/2017Adrenal nodule 05/18/2015 Social History [...] heating?Not very hard02/23/2023HQ-2AnswerDate RecordedPatient Health Questionnaire-2 Score0 03/04/2023[facility] [place] [facility] - Occupational Stress QuestionnaireAnswerDate [...] Last Filed Vital Signs Vital SignReadingTime TakenCommentsBlood Yzofvgdm092/7209 1:50 PM EDT Sfqbi489903/04/2023 1:50 PM JTVOfbhpavyfvn52.2 ??C (97.2 ??F)01/01/2023 9:45 AM EDTRespiratory Oywq668301/01/2023 11:15 AM EDTOxygen Icvepowina97%01/01/2023 11:15 AM EDTInhaled Oxygen Concentration--Ykbnno871 kg (270 lb)03/04/2023 1:50 PM EDT Ystjrm354.9 cm (5' 1 )03/04/2023 1:50 PM EDTBody Mass Index51.0209 1:50 PM EDT Plan of Treatment Health MaintenanceDue DateLast DoneCommentsDepression Abaoxqkzi06/05/1998 Varicella Vaccines (1 of 2 - 13+ 2-dose series)1998Hepatitis B Vaccines (1 of 3 - 19+ 3-dose series)2004Pap Smear2006HPV Vaccines (1 - 3-dose SCDM series)2012Cervical Cancer Injpwkgoc11/05/2016HPV/Uqjufq4809/01/2015 COVID-19 Vaccine (2024- season)2025Influenza Vaccine (#1)2025 Adult Qzbalmv36Zoster Vaccines (1 of 2)09/01/2035HIB Vaccines Aged Out09/20/1990No longer eligible based on patient's age to complete this topicIPV PrtatxztVehltlrao06/25/1991, 03/12/1987, 1985, Additional history existsMeningococcal B VaccineAged [...] Jewell TypeRelation to PatientDate of BirthPhone Billing AddressPersonal/UiuzctPyyr94/05/1986 [place] [address] * Guarantor: [employer].Account TypeRelation to PatientDate of PhoneBilling AddressWorkers [place] [address] Care Teams Team MemberRelationshipSpecialtyStart DateEnd Yovani Echols MD [address] [facility] [address] [address] [facility]02/24/22
--- OUTSIDE RECORDS SUMMARY | 2025-05-31 12:08 | XMS_ITS | CCD ---
Author Organization [facility] Care Team Providers Care Cab Starter Name Role Phone EDSON VILLEGAS Unavailable Unavailab SMILEY Dawkins Unavailable Unavailable PROVIDER, UNKNOWN Attending Unavailable PROVIDER, UNKNOWN Admitting Unavailable Smiley Urias MD Primary Care Provider [phone] Serafin Bartlett DO Unavailable Rolando Turner DO Unavailable Zehra Holly CNP Unavailable [phone] Rolando Turner Unavailable Smiley Urias MD Primary Care Provider [phone] Serafin Bartlett DO Unavailable Rolando Turner DO Unavailable Zehra Holly CNP Unavailable [phone] SMILEY URIAS Referring Unavailable SMILEY URIAS [...] Gianni QUARLES, Fabián Allen Attending Unavailable Gianni QUARELS, Fabián Allen Attending Unavailable Gianni QUARLES, Fabián Allen Attending Unavailable MD Smiley Urias Primary Care Provider [phone] MD Luiz Knight Attending Provider Smiley Urias Primary Care Physician Catherine Willis Attending Unavailable Catherine Willis Admitting Unavailable Luiz Knight Attending Unavailab Luiz Brennan Admitting Unavailab Smiley Dawkins Primary Care Unavailable Provider, None Primary Care Unavailable Allergies Allergy ClassificationReported Allergen(s)Allergy TypeDate of OnsetReaction(s) Facility (10 sources)Erythromycin; Translations: [ERYTHROMYCIN]Drug Tgmguwl57-85-3162 anaphylaxis, Anaphylaxis (disorder)[facility] Repository (1 source)ErythromycinDrug Pxwrqrb71-98-3604Pua [facility] Repository (2 sources)ErythromycinDrug Embcryo10-33-3894gbqfcqjmituTil [facility] (1 source)Erythromycin; Translations: [ERYTHROMYCIN LACTOBIONATE]Drug Allergy 77-16-8051QyhdwqkocvOhioHealth [facility] (1 source)ALLERGIES NOT ON FILE; Translations: [ALLERGIES NOT ON FILE]Propensity to adverse reactions (disorder)[facility]ository (2 sources)Azithromycin; Translations: [azithromycin]Drug Icdwfrs03-83-3367 An[facility]axisTri[facility] (1 source)ErythromycinDrug Xumuudk96-68-5414JsmamfmydTrihealth Good Samaritan Hospital Repository Medications Current Medications MedicationDrug Class(es)DatesSig (Normalized)Sig (Original)Cane - (6 sources)Start: 75-47-4641Puzc - as directed May, Activeibuprofen 600 mg oral tablet (1 source)Nonsteroidal Anti-inflammatory DrugStart: 28-65-7129cxam 600 mg by mouth every eight hoursIbuprofen Active 600 MG PO Q8H April 12, 2021 12:00amMagnesium (8 sources)Magnesium ActiveMethadone (14 sources)Opioid AgonistStart: 59-03-0298dbau 38 mg by mouth every six hours [...] (Original)ALPRAZolam 0.5 mg oral tablet (16 sources)BenzodiazepineStart: 66-78-0992cltq 1 tablet by mouth twice daily as needed for anxietyALPRAZolam (XANAX) 0.5 mg tablet TAKE 1 TABLET BY ORAL ROUTE 2 TIMES PER DAY NEEDED FOR ANXIETY 0 10/31/2021 ActiveStart: 49-16-6797ymyj 1 tablet by mouth at bedtime as needed for anxietyXanax 1 mg Tab 1 mg = 1 tab(s), Oral, Bedtime, PRN for anxiety, Refills(s) 0 Start Date: 04/03/21 Status: Ordered End: 23-86-1782kydj 2 tablets by mouth every eight hours as neededALPRAZolam (XANAX) 1 mg tablet Take 2 mg by mouth three times daily as needed. 0 11/12/2021 DiscontinuedComment on above:Take 2 mg by mouth three times daily as needed. TAKE 1 TABLET BY ORAL ROUTE 2 TIMES PER DAY NEEDED FOR ANXIETYamitriptyline hydrochloride 100 mg oral tablet (2 sources)Tricyclic Antidepressant End: 44-07-4279nyoe 1 tablet by mouth once daily at bedtimeamitriptyline (ELAVIL) 100 mg tablet Take 100 mg by mouth daily at bedtime. 0 11/12/2021 DiscontinuedComment on above:Take 100 mg by mouth daily at bedtime.carvedilol 25 mg oral tablet (2 sources)alpha-Adrenergic Jose De Jesus, beta-Adrenergic BlockerStart: 10-06-2014 End: 27-95-0807bqrz 1 tablet by mouth twice dailycarvedilol (COREG) 25 mg tablet Take 1 tablet by mouth twice daily. 180 tablet 3 10/06/2014 11/12/2021 DiscontinuedComment on above:Take 1 tablet by mouth twice daily.cloNIDine hydrochloride 0.1 mg oral tablet (2 sources)Central alpha-2 Adrenergic AgonistStart: 04-06-2015 End: 52-90-9267xocu 1 tablet by mouth three times dailycloNIDine HCl (CATAPRES) 0.1 mg tablet Take 1 tablet by mouth three times daily. 240 tablet 3 04/06/2015 11/12/2021 DiscontinuedComment on above:Take 1 tablet by mouth three times daily.hydrALAZINE hydrochloride 50 mg oral tablet (2 sources)Arteriolar VasodilatorStart: 10-06-2014 End: 27-39-2253cxcs 1 tablet by mouth twice dailyhydrALAZINE (APRESOLINE) 50 mg tablet Take 1 tablet by mouth twice daily. 180 tablet 3 10/06/2014 11/12/2021 DiscontinuedComment on above:Take 1 tablet by mouth twice daily. hydroCHLOROthiazide 12.5 mg oral capsule (2 sources)Thiazide DiureticStart: 05-18-2015 End: 63-17-6964epup 1 capsule by mouth once dailyHydrochlorothiazide 12.5 mg capsule Take 1 capsule by mouth once daily. 30 capsule 5 05/18/2015 11/12/2021 DiscontinuedComment on above:Take 1 capsule by mouth once daily. hydroCHLOROthiazide 12.5 mg / irbesartan 300 mg oral tablet (2 sources)Thiazide Diuretic, Angiotensin 2 Receptor BlockerStart: 10-06-2014 End: 02-67-9668sbhm 1 tablet by mouth once dailyIrbesartan-Hydrochlorothiazide 300-12.5 mg per tablet Take 1 tablet by mouth once daily. 90 tablet 3 10/06/2014 11/12/2021 DiscontinuedComment on above:Take 1 tablet by mouth once daily. lisinopril 20 mg oral tablet (14 sources)Angiotensin Converting Enzyme InhibitorStart: 06-80-1983mubp 1 tablet by mouth once dailylisinopril (ZESTRIL, PRINIVIL) 20 mg tablet Take 20 mg by mouth once daily. 0 10/30/2021 ActiveComment on above:Take 20 mg by mouth once daily.magnesium oxide 400 mg oral tablet (6 sources)Start: 94-05-6109jdya 1 tablet by mouth twice dailymagnesium oxide (MAG-OX) 400 mg (241.3 mg magnesium) tablet Take 1 tablet by mouth twice daily. 0 10/30/2021 ActiveComment on above:Take 1 tablet by mouth twice daily.morphine sulfate 30 mg extended release oral capsule (2 sources)Opioid Agonist End: 44-72-7915xtfd 1 capsule by mouth three times dailymorphine ER (LUANA) 30 mg 24 hr capsule Take 30 mg by mouth three times daily. 0 11/12/2021 Discont inuedComment on above:Take 30 mg by mouth three times daily.OXcarbazepine 150 mg oral tablet (2 sources)Anti-epileptic Agent End: 42-30-6040lwfc 1 tablet by mouth twice dailyOXcarbazepine (TRILEPTAL) 150 mg tablet Take 150 mg by mouth twice daily. 0 11/12/2021 DiscontinuedComment on above:Take 150 mg by mouth twice daily.oxyCODONE hydrochloride 20 mg oral tablet (2 sources)Opioid Agonist End: 64-16-0170brwc 1 tablet by mouth four times dailyoxyCODONE 20 mg tab Take 20 mg by mouth four times daily. 0 11/12/2021 DiscontinuedComment on above:Take 20 mg by mouth four times daily.pantoprazole 40 mg delayed release oral tablet (2 sources)Proton Pump Inhibitor End: 57-76-3070bnbv 1 tablet by mouth once dailypantoprazole DR (PROTONIX) 40 mg tablet Take 40 mg by mouth once daily. 0 11/12/2021 DiscontinuedComment on above:Take 40 mg by mouth once daily.potassium chloride 20 meq extended release oral tablet (6 sources)Start: 00-20-4822xitq 1 tablet by mouth once dailypotassium chloride 20 mEq ER Tab 20 mEq = 1 tab(s), Oral, Daily, Refills(s) 0 Start Date: 04/03/21 Status: Orderedpotassium chloride in water 20 mEq/100 mL IVPB Inject 20 mEq intravenously one time only. 0 ActiveComment on above:Inject 20 mEq intravenously one time only.promethazine hydrochloride 25 mg oral tablet (2 sources)Phenothiazine End: 03-83-1939wvul 1 tablet by mouth every six hours as neededpromethazine (PHENERGAN) 25 mg tablet Take 25 mg by mouth every 6 hours as needed. 0 11/12/2021 DiscontinuedComment on above:Take 25 mg by mouth every 6 hours as needed.spironolactone 50 mg oral tablet (2 sources)Aldosterone AntagonistStart: 10-06-2014 End: 97-10-1941tfbs 1 tablet by mouth once dailyspironolactone (ALDACTONE) 50 mg tablet Take 1 tablet by mouth once daily. 90 tablet 3 10/06/2014 11/12/2021 DiscontinuedComment on above:Take 1 tablet by mouth once daily.tiZANidine 4 mg oral tablet (2 sources)Central alpha-2 Adrenergic Agonist End: 89-13-3832dtfm 1 tablet by mouth every six hours as neededtiZANidine (ZANAFLEX) 4 mg tablet Take 4 mg by mouth every 6 hours as needed. 0 11/12/2021 DiscontinuedComment on above:Take 4 mg by mouth every 6 hours as needed.traMADol hydrochloride 50 mg oral tablet (2 sources)Opioid Agonist End: 12-24-6016pjvj 50 mg by mouth four times dailyTRAMADOL HCL (TRAMADOL ORAL) Take 50 mg by mouth four times daily. 0 11/12/2021 DiscontinuedComment on above: Take 50 mg by mouth four times daily.triamcinolone acetonide 40 mg/ml injectable suspension (3 sources)CorticosteroidStart: 79-93-7105Pzekcjc-40 October, 40 mgStart: 37-94-2340bwftfpwlkjblo Top 0.1% Crm 1 james, Topical, BID, Refill(s) 0 Start Date: 04/03/21 Status: Ordered Problems Active Problems Problem ClassificationProblemDateDocumented DateEpisodic/ChronicAbdominal pain (1 source)Unspecified abdominal pain; Translations: [UNSPECIFIED ABDOMINAL PAIN] Onset: 97-17-8094AtuszwkpMkixepotsbyhxl/social admission (2 sources)Patient encounter status; Translations: [Encounter for pre-employment examination]72-17-6410UnccjxptXdqrvijs reactions (1 source)Hhwnjp77-58-0780NpeukxtkPcuovpl disorders (2 sources)Generalized anxiety disorder; Translations: [Anxiety disorder, unspecified]Onset: 09-99-3807YttubttLyhjkarvw of lipid metabolism (1 source)Hyperlipidemia, unspecified; Translations: [HYPERLIPIDEMIA UNSPECIFIED]Onset: 70-84-4707BxqakqyS Codes: Fall (1 source)Fall on same level from slipping, tripping or stumbling ; Translations: [Fall on same level from slipping, tripping and stumbling without subsequent striking against object, initial encounter]74-79-4017Ueugqdqe Essential hypertension (10 sources)Hypertensive disorder; Translations: [Essential (primary) hypertension]Onset: 824640-23-2505PkgpesaJvjrq and electrolyte disorders (1 source)Vkceleazjyd13-44-6416IxuyscsxLwepefkd; including migraine (1 source)Bvcupgen41-96-1296OgcufknUszkgmfjpfeg with complications and secondary hypertension (1 source)Hypertensive urgency; Translations: [HYPERTENSIVE URGENCY]Onset: 12-32-4079KbtbbunFdmuixj and fatigue (6 sources)Fatigue; Translations: [Other fatigue]82-96-3179OxlpmpsoPyonvzehi disorders (1 source)Buzjroqiwrxk12-82-4473OofcryeDkfn disorders (1 source)Major depressive disorder, single episode, unspecified; Translations: [MANDEEP DEPRESS D/O SINGLE EPIS UNS]Onset: 50-07-2907AhdrwhyNgtqj and unspecified benign neoplasm (1 source)Adrenal cortical wtkucsn27-28-7358FlzkyeqhMvayx bone disease and musculoskeletal deformities (2 sources)Chondromalacia, left knee; Translations: [Chondromalacia, left knee] Onset: 44-63-4264WaachfasYaxfw congenital anomalies (2 sources)Discoid meniscus; Translations: [Discoid meniscus]Onset: 09-15-2022 ChronicOther connective tissue disease (3 sources)Weakness of right leg; Translations: [Other symptoms and signs involving the musculoskeletal system]EpisodicOther connective tissue disease (1 source)Other symptoms and signs involving the musculoskeletal system; Translations: [Right leg weakness]Onset: 51-72-8164TxlweytcNdydx endocrine disorders (6 sources)Adrenal mass; Translations: [Other specified disorders of adrenal gland]Onset: 997468-36-2573ZzlezfwRpihy inflammatory condition of skin (1 source)Puzqbzohe96-28-4301FahtdfwXyweb injuries and conditions due to external causes (1 source)Minor head injury; Translations: [Unspecified injury of head, initial encounter]40-45-9433LjigmcleCpdgj nutritional; endocrine; and metabolic disorders (1 source)Hypomagnesemia; Translations: [HYPOMAGNESEMIA]Onset: 48-86-7640Ygaejch Other nutritional; endocrine; and metabolic disorders (2 sources)Obesity, unspecified; Translations: [Obesity, unspecified]Onset: 22-39-9232AcnaowcPqttz nutritional; endocrine; and metabolic disorders (1 source)Body mass index 40+ - severely cbijw43-61-8489XgiirjyQbepg nutritional; endocrine; and metabolic disorders (1 source)Qordhjqjuxvfoc36-02-0301QukwxcfGmwoz nutritional; endocrine; and metabolic disorders (1 source)Morbid -71-9049FhkckipCnqlyzrp codes; unclassified (6 sources)Obstructive sleep apnea syndrome; Translations: [Obstructive sleep apnea (adult) (pediatric)]40-54-0878LsjiykeQmigclem codes; unclassified (4 sources)Sleep apnea, unspecified; Translations: [SLEEP APNEA UNSPECIFIED] Onset: 61-16-1666WxyccaqNgeqqhdo codes; unclassified (1 source)Sleep bunqa93-99-5026BcmfcpoRnfmpvth codes; unclassified (2 sources)Other specified postprocedural states; Translations: [Other specified postprocedural states]Onset: 53-27-1589HgvfxlnlFqjh and subcutaneous tissue infections (2 sources)Boil of back; Translations: [Furuncle of abdominal wall]04-03-2021 EpisodicSpondylosis; intervertebral disc disorders; other back problems (1 source)Degeneration of cervical intervertebral lrol55-70-9745Cdkzyzn Spondylosis; intervertebral disc disorders; other back problems (1 source)Low back ynrs93-07-8034OfsgiddgMrjeldemgml injury; contusion (10 sources)Contusion of right knee, initial encounter; Translations: [Contusion of right knee, subsequent encounter]Onset: 04-17-2021 Resolved: 93-66-7077ZzpkqduiWszebuibeggk (1 source)Concussion with loss of consciousness status unknown, subsequent encounter; Translations: [Concussion with loss of consciousness status unknown, subsequent encounter]Onset: 31-38-5450Nqanuxc tract infections (4 sources)Urinary tract infection, site not specified; Translations: [UTI SITE NOT SPECIFIED]Onset: 73-90-8553Zqaefntf Past or Other Problems Problem ClassificationProblemDateDocumented DateEpisodic/ChronicDeficiency and other anemia (1 source)Anemia, unspecified; Translations: [ANEMIA UNSPECIFIED]Onset: 08-88-6102OjtskgbiStajoebp mellitus without complication (1 source)Other abnormal glucose; Translations: [OTHER ABNORMAL GLUCOSE]Onset: 61-44-8996JstjqmihBikmqgigw of teeth and jaw (1 source)Other specified disorders of teeth and supporting structures; Translations: [OTH SPEC DISORDERS TEETH SUPP STRCT]Onset: 81-97-9578Eucjwanc Intracranial injury (6 sources)Concussion without loss of consciousness, initial encounter; Translations: [Unspecified intracranial injury without loss of consciousness, initial encounter]Onset: 15-62-8747IbhvdfkeGyuydqtqkrht breast conditions (4 sources)Disorder of breast, unspecified; Translations: [DISORDER OF BREAST UNSPECIFIED]Onset: 66-61-3747HxtbjhusNiyuxacoqyl chest pain (11 sources)Other chest pain; Translations: [Chest pain]Onset: 08-13-2017 27-85-0422RakmlzsbPzbqe aftercare (1 source)Other 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 continuous churn (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 therapy; Translations: [OTH JAIL CURRENT DRUG THERAPY]Onset: 45-39-2764QsvgqmufGhayr connective tissue disease (1 source)Pain in left arm; Translations: [PAIN IN LEFT ARM]Onset: 04-23-2022 EpisodicOther injuries and conditions due to external causes (2 sources)Unspecified injury of head, subsequent encounter; Translations: [Unspecified injury of head, subsequent encounter]Onset: 22-93-3886YzbcmuldMotgr injuries and conditions due to external causes (2 sources)Unspecified injury of head, initial encounter; Translations: [Unspecified injury of head, initial encounter]Onset: 41-35-4976KvzhwoevLjjhf non-traumatic joint disorders (6 sources)Pain in left knee; Translations: [PAIN IN LEFT KNEE]Onset: 01-31-2022 EpisodicOther screening for suspected conditions (not mental disorders or infectious disease) (1 source)Encounter for screening for malignant neoplasm of rectum; Translations: [ENC SCREEN MALIG NEOPLASM RECTUM]Onset: 97-30-8343Mcfzrmke Residual codes; unclassified (1 source)Acquired absence of other specified parts of digestive tract; Translations: [ACQ ABSENCE OTH PART DIGESTV TRACT]Onset: 47-45-4940Fyleigyu Sprains and strains (7 sources)Sprain of unspecified site of right knee, initial encounter; Translations: [Sprain of unspecified site of right knee, subsequent encounter] Onset: 09-18-2021 Resolved: 03-05-0681IzaibzytWuampvdnozcs (1 source)Concussion with loss of consciousness status unknown, subsequent encounter; Translations: [Concussion with loss of consciousness status unknown, subsequent encounter]Onset: 04-17-2022 Results Test NameValueInterpretationReference RangeFacilityTriage Panel 12-13-2024U Benzodia ScrPositiveNormalMagruder HospitalComment on above:Result Comment: Positive Result confirmed by [facility] 12/13/2024 08:25:50 EDT Sent for confirmation on 11/16/24Performed By: #### [id number] #### [facility] (DEFAULT) [address] [place] [address] 99491Psneft Panel 58-96-0435Fqfp Screen CompleteCollected NormalMagruder HospitalComment on above:Performed By: #### [id number] #### [facility] (DEFAULT) [address] [place] [address] 05766Cbsefq Device ControlPassNormalMagruder HospitalComment on above:Performed By: #### [id number] #### [facility] (DEFAULT) [address] [place] [address] 94893U Amph ScrNegativeNormalMagruder HospitalComment on above: Performed By: #### [id number] #### [facility] (DEFAULT) [address] [place] [address] [id number] Lupe ScrNegativeNormalMagruder HospitalComment on above: Result Comment: Sent to [facility] for confirmationPerformed By: #### [id number] #### [facility] (DEFAULT) [address] [place] [address] 27151Q Cannab ScrnNegativeNormalMagruder HospitalComment on above:Performed By: #### [id number] #### [facility] (DEFAULT) [address] [place] [address] 52356Q Cocaine ScrnNegativeNormal>=0Magruder HospitalComment on above:Performed By: #### [id number] #### [facility] (DEFAULT) [address] [place] [address] 79696E Methamp ScrnNegativeNormalMagruder HospitalComment on above:Performed By: #### [id number] #### [facility] (DEFAULT) [address] [place] [address] 99939C Opiate ScrNegativeNoGreen Cross Hospital HospitalComment on above:Performed By: #### [id number] #### [facility] (DEFAULT) [address] [place] [address] 59936E Oxycod ScrNegativeMcKitrick Hospital HospitalComment on above:Performed By: #### [id number] #### [facility] (DEFAULT) [address] [place] [address] 38522Y Phencyclidine ScrNegativeNoGreen Cross Hospital HospitalComment on above:Performed By: #### [id number] #### [facility] (DEFAULT) [address] [place] [address] [id number] 43-73-5000Qsfsnptc report Cyto stain Doc (Cvx/Vag)NoteInvalid Interpretation [facility] Hospital LimaComment on above:Result Comment: TESTS RESULT FLAG UNITS REF RANGE LAB Clinician Provided Cytology Information Source.............Endocervix No. of containers..01 ThinPrep Vial DIAGNOSIS: 01 NEGATIVE FOR INTRAEPITHELIAL LESION OR MALIGNANCY. Specimen adequacy: 01 Satisfactory for evaluation. Endocervical and/or squamous metaplastic cells (endocervical component) are present. Performed by: Catherine Beard Storehouse Clerk (ASCP) . 01 Note: Note 01 The [...] <-Panic Low,>-Panic High,A-Abnormal,AA-Critical Abnormal Performed at: [address] [id number] Carey Flores MD, Budcunwmp By: #### [id number] #### [facility] [address] [place], [place] [address]DHP 16+18+31+33+35+39+45+51+52+56+58+59+66+68 DNA Probe+sig amp Ql (Cvx)NegativeInvalid Interpretation CodeNegativeMercy Health St. [facility]'S Medical Center Comment on above:Result Comment: This nucleic acid amplification test detects fourteen high-risk HPV types (16,18,31,33,35,39,45,51,52,56,58,59,66,68) without differentiation. Performed at: [address] [id number] MD Sandra Patino Performed at: =G [address] [id number] MD Sandra PatinoPerformed By: #### [id number] #### [facility] [address] [place], [place] [address]TXR [id number] 11-33-6349Zspzmpykki TechniqueBRUSH-SPATULANormal [facility]'S Medical CenterComment on above:Performed By: #### [id number] #### [facility] [address] [place], [place] [address]Ejurqysbnfpam Body SiteENDOCERVIXNormalFisher Wilder Medical CenterComment on above:Performed By: #### [id number] #### [facility] [address] [place] [id number] [id number] dictated a letter simply stating patient remains off work and will remain off for 1 month . This letter is for [employer] because her children gets medical benefits. Patient was sent the letter.[facility]36on 48-27-416510Qdadtsk states she received a note for work but she needs a note stating she is off work. Please email if MD writes she states it is for [employer] family [employer] and she states that is what they need.[facility] HospitalFollow-Upon 71-15-3786Raytwm-[id number] Nabila Jewell 1985 F Date Provider Department Center 03/04/2023 PASUCAL HOPKINS MP PHYS MED Medical [facility]avi No family history on file Level of Service:43599 SC OFFICE/OUTPATIENT ESTABLISHED LOW MDM 20-29 MIN (GC) Reason for Visit and Comments: Concussion [072419] - bwcNormalK[facility]tering Health TroyOffice Visiton 81-24-0670Pfspie-up [id number] Nabila Jewell 1985 [facility] Provider Department [place] 02/23/2023 JENNY MARAVILLA MP ORTHO MPORTHO No family history on file Level of Service:14816 SC POSTOP FOLLOW UP VISIT RELATED TO ORIGINAL PX (GC) Reason for Visit and Comments: Pain [136] Follow-up [610568][facility] HospitalOffice Visiton 65-80-7869Iontqc-up [id number] Nabila Jewell 1985 F Date Provider Department Center 01/12/2023 JENNY MARAVILLA MP ORTHO MPORTHO No family history on file Level of Service:74408 SC POSTOP FOLLOW UP VISIT RELATED TO ORIGINAL PX (GC) Reason for Visit and Comments: Post-op [483][facility] HospitalOrders Onlyon 01-08-2023 Orders [id number] Nabila Jewell 1985 F Date Provider Department Center 01/08/2023 SHRUTHI TORREZ MP ORTHO MPORTHO No family history on fileNormalUniversity of Huntsville Memorial HospitalOPNOTEon 96-46-0798HOAWCPHHRG ARTHROSCOPY WITH PARTILA LATERAL MENISCECTOMY (L), CHONDROPLASTY (L) Operative Note Date: 01/01/2023 Location: [facility] OR Name: Nabila Jewell, : 1985, Diagnosis Pre-op Diagnosis * Discoid meniscus of left knee [Q68.6] Post-op Diagnosis * Discoid meniscus of left knee [Q68.6] Procedures KNEE ARTHROSCOPY WITH PARTILA LATERAL MENISCECTOMY 24319 - SC ARTHRS KNE SURG W/MENISCECTOMY MED/LAT W/SHVG CHONDROPLASTY Surgeons * Jenny Holley - Primary Procedure Summary Anesthesia: General ASA: III Estimated Blood Loss: 5 mL Total IV Fluids: mL Drains: * None in log * Staff: Flight Crew Time Clerk: Kristen Lai RN Scrub Person: Jordan [...] - hemodynamically stable. Condition: stable Jenny Holley YdjnezSwdyanppvx of [facility] CenterPOCT GLUCOSE METER UNSOLICITED RESULTSon 29-21-5209Lgrflsa [Mass/Vol]93 mg/zYHtfiqt21-990 [facility] TroyComment on above:Order Comment: Waived Testing in the ED is performed under the ED CLIA certificate #[id number].Result Comment: ngrothaPerformed By: #### [id number] ####[facility] (JULEE)[address], [place] [address]QEre 41-44-9179OPCyrzszf Of Present Illness Nabila Jewell is a [...] chondroplasty and saucerization of discoid lateral meniscusNormal [facility]1000006on 97-26-86226776138Zpxxzyj to eat or drink after midnight 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 AND 24 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 NO JEWELRY BRING INS AND ID Take the meds we spoke about w/a sip of water DOS: ALL NORMAL AM MEDS ARRIVE AT [facility] HospitalalUniSycamore Medical CenterDocumentationon 12-09-2022 [id number] Nabila Jewell 1985 F Date Provider Department Center 12/09/2022 Melvin-PARRISH MCDONOUGH MP DIETARY Medical [facility] Chart Close Cosign Required by: Samir Mendoza MD[189] No family history on fileNormalUniversity University Hospitals [facility]36on 59-04-953232KOX Becca from [employer] calls to state the last note sent with the [employer] has a statement that patient can work 4 hours per day 20 hours per week but [employer] sent yesterday did not have any thing listed but patient states there were no changes and she is still to be off work. I pulled up [employer] sent in by senior grant writer and I had forgotten to check the no changes box. In same note it does state by MD patient is not working and will be evaluated upon next ov. I informed her of the error and she requested I resend with the no changes box checked. Form was reprinted and faxed back.[facility]36Patient calls to state her MCO is stating [...] think so she will call the MCO back.NormalKettering Health TroyTelephoneon [id number] Nabila Jewell 1985 F Date Provider Department Center 12/03/2022 PASCUAL HOPKINS MP PHYS MED Medical Pavi No family history on fileNormalUniversity of Methodist [facility]San [facility] [id number] Nabila Jewell 1985 Date Provider Department Center 12/01/2022 PASCUAL HOPKINS MP PHYS MED Medical Pavi No family history on file Level of Service:63051 SC OFFICE/OUTPATIENT ESTABLISHED LOW MDM 20-29 MIN (GC) Reason for Visit and Comments: headaches [Other] - BWCNormalUnMercy Health St[facility] [id number] Nabila Jewell 1985 F Date Provider Department Center 09/29/2022 PASCUAL HOPKINS MP PHYS MED Medical Pavi No family history on file Level of Service:35934 SC OFFICE/OUTPATIENT ESTABLISHED LOW MDM 20-29 MIN Reason for Visit and Comments: headaches [Other] Leg Pain [448329] - RightNormalUniSycamore Medical CenterOrders Onlyon [id number] [id number] Taj Jewellley Vilma 1985 F Date Provider Department Center 09/29/2022 275-PASCUAL URIBE MP PHYS MED Medical Pavi No family history on fileNormalUniSycamore Medical CenterOffice Visiton 17-51-2555Rfrmie-up [id number] FantaNabila Esparza 1985 F Date Provider Department Center 09/15/2022 443-JENNY HOLLEY MP ORTHO MPORTHO No family history on file Level of Service:56361 SC OFFICE/OUTPATIENT ESTABLISHED MOD MDM 30-39 MIN (57) Reason for Visit and Comments: Pain [136]NormalUnOhioHealth Mansfield HospitalCULTURE URINEon 08-22-2022 CULTURE URINECulture Observations: MODERATE GROWTH OF MIXED GENITAL GISELLE. NO POTENTIAL PATHOGENS SEEN.NormalThe [facility] County HospitalComment on above:Performed By: #### TSH, LIPID, CMP, URIC, T7, CRP #### [facility] [address] [place] [address] Dr. Walker Han RANDOM W/MICROSCOPICon [id number]GeofjlmuRHZI SEENKettering Memorial HospitalComment on above:Performed By: #### UAMIC #### [facility] [address] [address] [address] Walker Ann Ql (U)NegativeNormalNEGATIVEThe [facility] Comment on above:Performed By: #### UAMIC #### [facility] [address] [address] [address] Walker Santillan SEENNormalNONE SEENKettering Memorial HospitalComment on above:Performed By: #### UAMIC #### [facility] [address] [address] [address] Walker Mcleod (U)CLEARNormalCLEARThe [facility] HospitalComment on above: Performed By: #### UAMIC #### [facility] [address] [address] [address] Walker Navarro (U)YELLOWNormalYELLOWKettering Memorial HospitalComment on above: Performed By: #### UAMIC #### [facility] [address] [address] [address] Walker GabrielCrystals LM Nom (Urine sed)NONE SEENNormalNONE SEENKettering Memorial HospitalComment on above:Performed By: #### UAMIC #### [facility] [address] [address] [address] Cardoso ChangEpithelial cells LM Ql (Urine sed)FEWAbnormalNONE SEEN /RAREKettering Memorial HospitalComtrinity health [place]onia on above:Performed By: #### UAMIC #### [facility] [address] [place] [address] Dr. Walker GabrielGlucose Ql (U)NegativeNormalNEGATIVEKettering Memorial HospitalComment on above:Performed By: #### UAMIC #### [facility] [address] [address] [address] Walker GabrielHemoglobin Ql (U)TRACE-LYSEDAbnormalNEGATIVEOhio State Harding Hospital on above:Performed By: #### UAMIC #### [facility] [address] [address] [address] Walker GabrielKetones Ql (U)NegativeNormalNEGATIVEKettering Memorial HospitalComment on above:Performed By: #### UAMIC #### [facility] [address] [address] [address] Walker GabrielLEUKOCYTESNegativeNormalNEGATIVEKettering Memorial HospitalComtrinity health [place] on above:Performed By: #### UAMIC #### [facility] [address] [address] [address] Walker GabrielMUCOUSNONE SEENNormalNONE SEENKettering Memorial HospitalComment on above:Performed By: #### UAMIC #### [facility] [address] [address] [address] Walker Valentine Ql (U)NegativeNormalNEGATIVEThe [facility] County HospitalComment on above:Performed By: #### UAMIC #### [facility] [address] [place] [address] Dr. Walker GabrielpH (U)6.0 [pH]Normal5-9The [facility] HospitalComment on above: Performed By: #### UAMIC #### [facility] [address] [place] [address] Dr. Walker GabrielSxrguZYK3-8Vqhmcl6-9Teq [facility] HospitalComment on above:Performed By: #### UAMIC #### [facility] [address] [place] [address] Dr. Walker GabrielSPEC GRAVITY>=1.235Eywfoarv0.005-<=1.025The [facility] Comment on above:Performed By: #### UAMIC #### [facility] [address] [place] [address] Dr. Walker GabrielUA PROTEINNegativeNormalNEGATIVE/ TRACEThe [facility] Comment on above:Performed By: #### UAMIC #### [facility] [address] [place] [address] Dr. Walker Augustin Qn (U)0.2 {Natalie'U}/dLNormal0.2 - 1.0The [facility] HospitalComment on above:Performed By: #### UAMIC #### [facility] [address] [place] [address] Dr. Walker GabrielWBC2-5AbnormalNONE SEENThe [facility] HospitalComment on above: Performed By: #### UAMIC #### [facility] [address] [place] [address] Dr. Walker GabrielXR KUB 1 VIEWon [id number] KUB 1 VIEWEXAMINATION: XR KUB 1 VIEW [...] Electronically authenticated by: PASCUAL GAMBLE Date: 2022-08-22 12:42St[facility] God HospitalFoow-Upon [id number]-[id number] Nabila Jewell 1985 Provider Department Center 08/21/2022 Lupe-CAROLE PONCE MP ORTHO MPORTHO No family history on file Level of Service:03024 SC OFFICE/OUTPATIENT ESTABLISHED LOW MDM 20-29 MIN Reason for Visit and Comments: Pain [136][facility] HospitalClinical Supporton 08-06-2022 Clinical [id number] Nabila Jewell 1985 Provider Department [place] 08/06/2022 PARRISH STOVER MP DIETARY Medical Pavi Chart Close Cosign Required by: Samir Mendoza MD[[id number]] No family history on file Reason for Visit and Comments: Obesity [[id number]] Hypertension [815383][facility] HospitalErroneous Encounteron [id number] [id number] Nablia Jewell 1985 Provider Department [place] 08/06/2022 PARRISH STOVER MP DIETARY Medical Pavi No family history on file Reason for Visit and Comments: Error (VOID this visit) [77][facility] Documentationon [id number] Nabila Jewell 1985 Provider Department [place] 07/31/2022 PARRISH STOVER [facility] NUTRN IA Medical C Chart Close Cosign Required by: Samir Mendoza MD[[id number]] No family history on fileNormalUniversity of [facility] [id number] Nabila Jewlel 1985 Provider Department [place] 07/02/2022 PASCUAL HOPKINS MP PHYS MED Medical Pavi No family history on file Level of Service:33911 SC OFFICE/OUTPATIENT ESTABLISHED MOD MDM 30-39 MIN Reason for Visit and Comments: Headache [52] Leg Pain [701782] - Right BWCNormalKettering Health TroyRefillon [id number] FantaNabila M 1985 F Date Provider Department Center 05/28/2022 PASCUAL HOPKINS MP PHYS MED Medical Pavi No family history on file Reason for Visit and Comments: Med Refill [360455][facility] HospitalFolifec[facility] [id number] Taj Jewellronit Esparza 1985 Date Provider Department [place] 05/15/2022 RUFINO DICKERSON MP ORTHO MPORTHO Chart Close Cosign Required by: Rufino Perdomo MD[[id number]] No family history on file Level of Service:86676 SC OFFICE/OUTPATIENT ESTABLISHED LOW MDM 20-29 MIN (GC) Reason for Visit and Comments: Follow-up [922622] - Follow up on left knee pain.[facility] HospitalFolifec[facility] [id number] Nbaila Jewell Vilma 1985 Provider Department [place] 04/30/2022 PASCUAL HOPKINS MP PHYS MED Medical Pavi No family history on file Level of Service:57407 SC OFFICE/OUTPATIENT ESTABLISHED MOD MDM 30-39 MIN (GC) Reason for Visit and Comments: headaches [Other][facility] HospitalANA by IFAon 27-09-5166Egoqrticskn Antibodies, IFANegativeNormalThDetwiler Memorial HospitalComment on above:Result Comment: Negative <1:80 Borderline 1:80 Positive >1:80 ICAP nomenclature: AC-0 For more information about Hep-2 cell patterns use ANApatterns.org, the official website for the International Consensus on Antinuclear Antibody (DARIO) Patterns (ICAP).Performed By: #### TSH, LIPID, CMP, URIC, T7, CRP #### [facility] [address] [place] [address] Dr. Walker Ramos PROFILE Aon 12-38-2443Njhn-DNA (DS) Ab Qn3 IU/mLNormal0-9The [facility] HospitalComment on above:Result Comment: Negative <5 Equivocal 5 - 9 Positive >9Performed By: #### SLEA #### [facility] [address] [place] [address] Dr. Walker GabrielAntichromatin Antibodies<0.6Xirimm9.0-0.9The [facility] Comment on above:Performed By: #### SLEA #### [facility] [address] [place] [address] Dr. Walker Hennessy Latex Turbid.<10.0Normal<14.0Kettering Memorial HospitalComment on above:Performed By: #### SLEA #### [facility] [address] [place] [address] Dr. Walker Em Antibodies<0.1Ckjhas0.0-0.9The [facility] HospitalComment on above:Performed By: #### SLEA #### [facility] [address] [place] [address] Dr. Walker Villagran Anti-SS-A<0.5Saetfy7.0-0.9The [facility] HospitalComment on above:Performed By: #### SLEA #### [facility] [address] [place] [address] Dr. Walker Villagran Anti-SS-B<0.9Wdpumj7.0-0.9The [facility] HospitalComment on above:Performed By: #### SLEA #### [facility] [address] [place] [address] Dr. Walker Tidwell Antibodies<0.7Simuke1.0-0.9The [facility] HospitalComment on above:Performed By: #### SLEA #### [facility] [address] [place] [address] Dr. Walker GabrielANTISTREPTOLYSIN O AB (ASO)on 46-05-8744Rojhldosrnaizqub O Ab 227.2 IU/mLCritically high0.0-200.0K[facility]tering Memorial HospitalComment on above: Performed By: #### TSH, LIPID, CMP, URIC, T7, CRP #### [facility] [address] [place] [address] Dr. Walker GabrielINSULINon 79-41-6461Dgigqtg01.8 uIU/mLNormal2.6-24.9The [facility] HospitalComment on above:Performed By: #### TSH, LIPID, CMP, URIC, T7, CRP #### [facility] [address] [place] [address] Dr. Walker Hsu AUTO DIFFon [id number] #0.0 103/ulNormal0.0-0.1The [facility] HospitalComment on above:Performed By: #### TSH, LIPID, CMP, URIC, T7, CRP #### [facility] [address] [place] [address] Dr. Walker GabrielBasophils/100 WBC (Bld)0.4 %Normal0.2-2.0The [facility] Comment on above:Performed By: #### TSH, LIPID, CMP, URIC, T7, CRP #### [facility] [address] [place] [address] Dr. Walker Vaughan #0.1 103/ulNormal0.0-0.7The [facility] HospitalComment on above: Performed By: #### TSH, LIPID, CMP, URIC, T7, CRP #### [facility] [address] [place] [address] Dr. Walker Fregosoosinophils/100 WBC (Bld)1.4 %Normal0.9-7.0The [facility] Comment on above:Performed By: #### TSH, LIPID, CMP, URIC, T7, CRP #### [facility] [address] [place] [address] Dr. Walker Fregosorythrocyte distribution width (RBC) [Ratio]12.8 %Rbevky65.0-15.0 The [facility] HospitalComment on above:Performed By: #### TSH, LIPID, CMP, URIC, T7, CRP #### [facility] [address] [place] [address] Dr. Walker GabrielHematocrit (Bld) [Volume fraction]38.1 %Wsrgim30.0-48.0The [facility] Systemment on above:Performed By: #### TSH, LIPID, CMP, URIC, T7, CRP #### [facility] [address] [place] [address] Dr. Walker GabrielHemoglobin (Bld) [Mass/Vol]12.3 g/bUCvdgxl20.0-16.0The [facility] Systemment on above:Performed By: #### TSH, LIPID, CMP, URIC, T7, CRP #### [facility] [address] [place] [address] Dr. Walker Cannon #0.03 10e3/ulNormal0.00-0.03The [facility] on above:Performed By: #### TSH, LIPID, CMP, URIC, T7, CRP #### [facility] [address] [place] [address] Dr. Walker Cannon %0.4 %Normal0.0-0.5The [facility] HospitalComtrinity health [place] on above: Performed By: #### TSH, LIPID, CMP, URIC, T7, CRP #### [facility] [address] [place] [address] Dr. Walker Gonzalez #2.6 103/ulNormal1.2-3.8The [facility] on above:Performed By: #### TSH, LIPID, CMP, URIC, T7, CRP #### [facility] [address] [place] [address] Dr. Walker Bynumhocytes/100 WBC (Bld)35.5 %Hsnhqg36.5-60.0The [facility] on above:Performed By: #### TSH, LIPID, CMP, URIC, T7, CRP #### [facility] [address] [place] [address] Dr. Walker StricklandUAL DIFF REQNONormalThe [facility] HospitalComment on above: Performed By: #### TSH, LIPID, CMP, URIC, T7, CRP #### [facility] [address] [place] [address] Dr. Walker Gomez (RBC) [Entitic mass]28.7 owConqfu95.7-34.0The [facility] HospitalComment on above:Performed By: #### TSH, LIPID, CMP, URIC, T7, CRP #### [facility] [address] [place] [address] Dr. Walker Cho (RBC) [Mass/Vol]32.3 g/uAAvcgjb79.9-35.2The [facility] HospitalComment on above:Performed By: #### TSH, LIPID, CMP, URIC, T7, CRP #### [facility] [address] [place] [address] Dr. Walker Draper (RBC) [Entitic vol]88.8 vJWtkzjr09.0-99.0The [facility] HospitalComment on above:Performed By: #### TSH, LIPID, CMP, URIC, T7, CRP #### [facility] [address] [place] [address] Dr. Walker Painting #0.4 103/ulNormal0.3-0.8The [facility] HospitalComment on above:Performed By: #### TSH, LIPID, CMP, URIC, T7, CRP #### [facility] [address] [place] [address] Dr. Walker Hopkinsocytes/100 WBC (Bld)6.1 %Normal1.7-12.0The [facility] Comment on above:Performed By: #### TSH, LIPID, CMP, URIC, T7, CRP #### [facility] [address] [place] [address] Dr. Walker Maher #4.0 103/ulNormal1.4-6.5The [facility] HospitalComment on above:Performed By: #### TSH, LIPID, CMP, URIC, T7, CRP #### [facility] [address] [place] [address] Dr. Walker Henryutrophils/100 WBC (Bld)56.2 %Kmshox20.0-75.0The [facility] HospitalComment on above:Performed By: #### TSH, LIPID, CMP, URIC, T7, CRP #### [facility] [address] [place] [address] Dr. Walker Foss mean volume (Bld) [Entitic vol]8.3 fLCritically low 9.5-13.5The [facility] HospitalComment on above:Performed By: #### TSH, LIPID, CMP, URIC, T7, CRP #### [facility] [address] [place] [address] Dr. Walker GabrielPLT328 103/okWnoccy960-238Dal [facility] HospitalComment on above: Performed By: #### TSH, LIPID, CMP, URIC, T7, CRP #### [facility] [address] [place] [address] Dr. Walker GabrielRBC4.29 106/ulNormal4.20-5.40The [facility] HospitalComment on above:Performed By: #### TSH, LIPID, CMP, URIC, T7, CRP #### [facility] [address] [place] [address] Dr. Walker GabrielWBC7.2 103/ulNormal4.0-11.0The [facility] HospitalComment on above: Performed By: #### TSH, LIPID, CMP, URIC, T7, CRP #### [facility] [address] [place] [address] Dr. Walker Gama 11-05-9386HJZ9.3 mg/dLCritically high<=1.0The [facility] Systemment on above:Performed By: #### TSH, LIPID, CMP, URIC, T7, CRP #### [facility] [address] [place] [address] Dr. Walker Aleman THYROXINE INDEX T7on 43-13-0755EWX4.88Sxrjia5.30-4.50The [facility] HospitalComment on above:Performed By: #### TSH, LIPID, CMP, URIC, T7, CRP #### [facility] [address] [place] [address] Dr. Walker GabrielT3U31.0 %Wunygp26.0-39.0The [facility] HospitalComment on above: Performed By: #### TSH, LIPID, CMP, URIC, T7, CRP #### [facility] [address] [place] [address] Dr. Walker GabrielT4 [Mass/Vol]9.40 ug/dLNormal4.80-13.90The [facility] Comment on above:Performed By: #### TSH, LIPID, CMP, URIC, T7, CRP #### [facility] [address] [address] [address] Walker GabrielGLYCOHEMOGLOBIN A1Con 37-91-9290RXU RECOMMENDATIONSEE BELOWChicago Heights The [facility] County HospitalComment on above:Result Comment: ADA RECOMMENDED LIMIT 4.0 - 6.0 ADA THERAPEUTIC TARGET < 7.0 ACTION SUGGESTED > 7.0Performed By: #### TSH, LIPID, CMP, URIC, T7, CRP #### [facility] [address] [address] [address] Walker GabrielGlucose [Mass/Vol]114 mg/dLNoProMedica Bay Park HospitalComment on above:Performed By: #### TSH, LIPID, CMP, URIC, T7, CRP #### [facility] [address] [address] [address] Walker GabrielHbA1c (Bld) [Mass fraction]5.6 %Normal4.5-6.2The [facility] HospitalComment on above:Performed By: #### TSH, LIPID, CMP, URIC, T7, CRP #### [facility] [address] [address] [address] Walker Garcia 88-73-9310Fmwf [Mass/Vol]34.0 ug/dLCritically low 50.0-170.0The [facility] HospitalComment on above:Performed By: #### IRON #### [facility] [address] [address] [address] Walker GabrielLIPID PROFILEon 55-26-0318LUKQ-HDL RATIO NORMSEE [facility] HospitalComtrinity health [place] on above:Result Comment: 3.3 - 4.4 LOW RISK 4.4 - 7.1 AVERAGE RISK 7.1 - 11.0 MODERATE RISK >11.0 HIGH RISKPerformed By: #### TSH, LIPID, CMP, URIC, T7, CRP #### [facility] [address] [address] [address] Walker GabrielCholesterol [Mass/Vol]174 mg/dLNormal<=200The [facility] Comment on above:Performed By: #### TSH, LIPID, CMP, URIC, T7, CRP #### [facility] [address] [address] [address] Walker GabrielCholesterol in HDL [Mass/Vol]70 mg/dLCritically damu94-05Cbp [facility] HospitalComment on above:Performed By: #### TSH, LIPID, CMP, URIC, T7, CRP #### [facility] [address] [address] [address] Walker GabrielCholesterol in LDL [Mass/Vol]92.8 mg/dLNoProMedica Bay Park HospitalComment on above:Performed By: #### TSH, LIPID, CMP, URIC, T7, CRP #### [facility] [address] [place] [address] Dr. Walker Berryesterfabiola.total/Cholesterol in HDL [Mass ratio]2.5 {ratio} NormalThe [facility] HospitalComment on above:Performed By: #### TSH, LIPID, CMP, URIC, T7, CRP #### [facility] [address] [address] [address] Walker Bautista NORMAL> or = 60 mg/dl - LOW CARDIOVASCULAR RISK <40 mg/dl - HIGH CARDIOVASCULAR RISKSt. John of God HospitalComment on above:Performed By: #### TSH, LIPID, CMP, URIC, T7, CRP #### [facility] [address] [address] [address] Walker GabrielLDL CALC NORMALSEE BELOWNoProMedica Bay Park HospitalComment on above:Result Comment: <100 mg/dl OPTIMAL 100 - 129 mg/dl NEAR OR ABOVE OPTIMAL 130 - 159 mg/dl BORDERLINE HIGH 160 - 189 mg/dl HIGH >190 mg/dl VERY HIGH Performed By: #### TSH, LIPID, CMP, URIC, T7, CRP #### [facility] [address] [address] [address] Walker GabrielTriglyceride [Mass/Vol]56 mg/dLNormal<=150The [facility] Comment on above:Performed By: #### TSH, LIPID, CMP, URIC, T7, CRP #### [facility] [address] [address] [address] Walker MacLDL CALC11.2 mg/dLNormalThe [facility] HospitalComment on above: Performed By: #### TSH, LIPID, CMP, URIC, T7, CRP #### [facility] [address] [address] [address] Walker Kaufman 14(COMP METB)on 05-09-2250Hsxulhy [Mass/Vol]3.0 g/dL Critically low3.4-5.0The [facility] HospitalComment on above:Performed By: #### TSH, LIPID, CMP, URIC, T7, CRP #### [facility] [address] [place] [address] Dr. Walker GabrielAlbumin/Globulin [Mass ratio]0.6 {ratio}NormalThe [facility] HospitalComment on above:Performed By: #### TSH, LIPID, CMP, URIC, T7, CRP #### [facility] [address] [place] [address] Dr. Walker Dutton [Catalytic activity/Vol]102 U/USpatlj73-335Fdn [facility] on above:Performed By: #### TSH, LIPID, CMP, URIC, T7, CRP #### [facility] [address] [place] [address] Dr. Walker Vela [Catalytic activity/Vol]19 U/DNgicfb98-83Jxg [facility] on above:Performed By: #### TSH, LIPID, CMP, URIC, T7, CRP #### [facility] [address] [place] [address] Dr. Walker Christianson gap [Moles/Vol]7.9 mmol/LNormalThe [facility] Health Systemment on above:Performed By: #### TSH, LIPID, CMP, URIC, T7, CRP #### [facility] [address] [place] [address] Dr. Walker Fang [Catalytic activity/Vol]12 U/LCritically tyw02-34Rmb [facility] HospitalComment on above:Performed By: #### TSH, LIPID, CMP, URIC, T7, CRP #### [facility] [address] [address] [address] Walker GabrielBilirubin [Mass/Vol]0.1 mg/dLCritically low0.2-1.0The [facility] HospitalComment on above:Performed By: #### TSH, LIPID, CMP, URIC, T7, CRP #### [facility] [address] [address] [address] Walker GabrielCalcium [Mass/Vol]8.9 mg/dLNormal8.5-10.1The [facility] Comment on above:Performed By: #### TSH, LIPID, CMP, URIC, T7, CRP #### [facility] [address] [place] [address] Dr. Walker GabrielChloride [Moles/Vol]103 mmol/PVsiynk88-196Ykg [facility] Comment on above:Performed By: #### TSH, LIPID, CMP, URIC, T7, CRP #### [facility] [address] [address] [address] Walker GabrielCO2 [Moles/Vol]28.4 mmol/HYefxql48.0-32.0[facility] Comment on above:Performed By: #### TSH, LIPID, CMP, URIC, T7, CRP #### [facility] [address] [place] [address] Dr. Walker GabrielCreatinine [Mass/Vol]0.91 mg/dLNormal0.55-1.02The [facility] Health Systemment on above:Performed By: #### TSH, LIPID, CMP, URIC, T7, CRP #### [facility] [address] [address] [address] Walker FregosoGFR-AF RWANDAN>60Normal>=60The [facility] Health Systemment on above:Performed By: #### TSH, LIPID, CMP, URIC, T7, CRP #### [facility] [address] [address] [address] Walker FregosoGFR-NON AF RWANDAN>60Normal>=60The [facility] HospitalComment on above:Performed By: #### TSH, LIPID, CMP, URIC, T7, CRP #### [facility] [address] [address] [address] Walker GabrielGlobulin (S) [Mass/Vol]4.7 g/dLNormalThDetwiler Memorial HospitalComment on above:Performed By: #### TSH, LIPID, CMP, URIC, T7, CRP #### [facility] [address] [place] [address] Dr. Walker GabrielGlucose [Mass/Vol]87 mg/gQUkkzte63-715Mer [facility] Comment on above:Performed By: #### TSH, LIPID, CMP, URIC, T7, CRP #### [facility] [address] [place] [address] Dr. Walker GabrielPotassium [Moles/Vol]4.3 mmol/LNormal3.5-5.1[facility] Comment on above:Performed By: #### TSH, LIPID, CMP, URIC, T7, CRP #### [facility] [address] [place] [address] Dr. Walker GabrielProtein [Mass/Vol]7.7 g/dLNormal6.4-8.2[facility] Comment on above:Performed By: #### TSH, LIPID, CMP, URIC, T7, CRP #### [facility] [address] [place] [address] Dr. Walker GabrielSodium [Moles/Vol]135 mmol/LCritically vhf935-236Mmj [facility] HospitalComment on above:Performed By: #### TSH, LIPID, CMP, URIC, T7, CRP #### [facility] [address] [place] [address] Dr. Walker GabrielUrea nitrogen [Mass/Vol]21.0 mg/dLCritically high7.0-18.0The [facility] HospitalComment on above:Performed By: #### TSH, LIPID, CMP, URIC, T7, CRP #### [facility] [address] [place] [address] Dr. Walker GabrielUrea nitrogen/Creatinine [Mass ratio]23.1 mg/mgNormalThe Alona HospitalComment on above:Performed By: #### TSH, LIPID, CMP, URIC, T7, CRP #### [facility] [address] [place] [address] Dr. Walker Carrion 97-71-0160YUA5.570 uIU/mLNormal0.358-3.740The [facility] HospitalComment on above:Performed By: #### TSH, LIPID, CMP, URIC, T7, CRP #### [facility] [address] [address] [address] Walker GabrielURIC ACID SERUMon 10-79-9728Nfwab [Mass/Vol]5.7 mg/dLNormal 2.6-6.0The [facility] HospitalComment on above:Performed By: #### TSH, LIPID, CMP, URIC, T7, CRP #### [facility] [address] [place] [address] Dr. Walker GabrielUS VENOUS DOPPLER L Candelaria 73-25-8807JM VENOUS DOPPLER L ARM EXAMINATION: US VENOUS [...] Electronically authenticated by: JENNY ARIAS Date: 2022-04-18 18:43[facility] HospitalClinical Supporton 69-00-7032Ruvfrzeq [id number] Nabila Jewell 1985 Provider Department Center [facility]/2022 [facility] Medical Pavi No family history on file Reason for Visit and Comments: Worker's Compensation [732] Follow-up [681319] Concussion [015912]NormalKettering Health TroyFollow-Upon 36-79-1042Lehaow-[id number] Nabila Jewell 1985 Provider Department Center 04/03/2022 260-RUFINO PERDOMO MP ORTHO MPORTHO Chart Close Cosign Required by: Rufino Perdomo MD[[id number]] No family history on file Level of Service:83322 SC OFFICE/OUTPATIENT ESTABLISHED LOW MDM 20-29 MIN (GC) Reason for Visit and Comments: Pain [136] Edema [[id number]] Follow-up [927035]NormalKettering Health TroyErroneous Encounteron 82-05-3035Genpjfzho [id number] Nabila Jewell 1985 Provider Department Center 03/31/2022 5732-LINDA TOPETE MP REHAB PSY Medical Pavi No family history on file Reason for Visit and Comments: Error (VOID this visit) [77][facility] HospitalCNOVon 47-62-5001VXDXWunaua Visit (NMUAMH) FANTA,NABILA Vilma ([id number]) 1985 Time Provider Department 02/03/22 11:00 AM CHAS ROMERO NMUA During your visit today, we recorded the following information about you: Pulse Blood pressure Weight Height 66/minute 117/84 122.7 kg 1.549 m Chas Romero DO 02/03/2022 11:27 AM Signed Neuromuscular Clinic Follow up Visit SERVICE DATE: 02/03/2022 PCP: Smiley Urias MD [address] [place] [address] Reason for Evaluation: Consultation requested by Self for an opinion regarding right leg weakness Family/Friend accompanying the patient today: none HPI: This is Ms. Nabila Jewell, a 36 year old female who presents to the [facility] with the chief complaint above. 02/03/2022: [...] get up after this. She went to [facility] in [place]. She was evaluated and did testing and [...] ptosis CN VIII: He (more content not included)...NormalAdena Pike Medical CenterCNPNon 75-91-6355LBPLYfephaxlh (NEURST) NABILA JEWELL ([id number]) 1985 F Date Time Provider Department 01/30/22 [...] 05/18/2015 Encounter Status:Closed by CHAS ROMERO on 01/30/22[facility] CenterI KNEE LT WO CONon 58-53-4180KUT KNEE LT WO CONHISTORY: Left knee pain. [...] Electronically authenticated by: SMILEY READER Date: 2022-01-28 12:18[facility] HospitalEM(NEURO/NI)on 37-77-9738Czsauvvja ClinicMG MAMM DIAGNOSTIC 3D GREGORY CADon 66-90-6379BQ MAMM DIAGNOSTIC 3D GREGORY CADPatient: NABILA JEWELL Exam Date: 01/22/2022 : 1985 Gender:F Ordering : DR SMILEY URIAS . Admission #: [id number] Family : Order #: [id number] CLICK HERE TO VIEW EXAM RADIOLOGY REPORT [...] Treatments None Family Cancers None LOCATION: [facility] BREAST COMPOSITION: Scattered areas fibroglandular density. [...] by: Pascual Gamble M.D. on 01/22/2022 at 15:30[facility] 56-13-5316KCPYZnverebbg (NENMMN) NABILA JEWELL ([id number]) 1985 F Date Time Provider Department 12/06/21 [...] 05/18/2015 Encounter Status:Closed by SKY RAPP on 12/06/21[facility] 91-18-1137GXJUUiueukbbe (NMSOU[facility]) NABILA JEWELL ([id number]) 1985 F Date Time Provider Department 11/15/21 CHAS ROMERO [facility] During your visit today, we recorded the following information about you: Rosana Ann Pss 11/15/2021 10:02 AM Addendum Pt requesting Dr. Romero send in C9 to [employer] comp for EMG. Jaxon phone [phone] ext [phone] [facility] PLEASE FAX TO:[phone] Also needs this faxed to attorney [place], [place] [employer] and [employer] [facility] Pt will call back with fax [...] 05/18/2015 Encounter Status:Closed by ROSANA VALVERDE on 04/03/22[facility] 70-19-3422AFVYKcwsse Visit (NMUA) NABILA JEWELL ([id number]) 1985 F Date Time Provider Department 11/12/21 2:00 PM CHAS ROMERO [facility] During your visit today, we recorded the following information about you: Pulse Blood pressure Weight Height 69/minute 120/82 118.6 kg 1.549 m Chas Romero DO 11/12/2021 2:58 PM Signed Neuromuscular Clinic New Patient Visit SERVICE DATE: 11/12/2021 PCP: Smiley Urias MD [address] [place] [address] Reason for Evaluation: Consultation requested by Self for an opinion regarding right leg weakness Family/Friend accompanying the patient today: none HPI: This is Ms. Nabila eJwell, a 36 year old female who presents to the [facility] with the chief complaint above. She had an injury at work (March 2021)-she fell and hit her head on a prep table and fell onto her knee. She had difficulty moving to get up after this. She went to [facility] in [place]. She was evaluated and did testing and [...] Finger abduction - FDI (more content not included)...NormalAdena Pike Medical CenterCNPNon 31-70-9933KIOHXurnhrznj (NENMMN) NABILA JEWELL ([id number]) 1985 F Date Time Provider Department 10/22/21 [...] 05/18/2015 Encounter Status:Closed by SKY RAPP on 10/22/21NoPike Community HospitalCARDIAC MACIE 3-6on 30-35-8664UJ [Catalytic activity/Vol]135 U/LNormal 30-135K[facility]tering Memorial HospitalComment on above:Performed By: #### CMREP #### [facility] [address] [place] [address] Dr. Walker Burger.MB [Mass/Vol]0.84 ng/mLNormal<=2.37[facility] Comment on above:Performed By: #### CMREP #### [facility] [address] [place] [address] Dr. Walker FriedmanOP8.5 pg/mLNormal4.0-35.5ThDetwiler Memorial HospitalComment on above:Result Comment: CUT-OFF POINTS HAVE BEEN ESTABLISHED BASED ON THE FOURTH UNIVERSAL DEFINITIONS OF MYOCARDIAL INFARCTION. THE UPPER REFERENCE LIMIT (URL) OF TROPONIN, DEFINED THE 99TH PERCENTILE OF cTnI DISTRIBUTION IN A REFERENCE POPULATION, HAS BEEN CONFIRMED THE DECISION THRESHOLD FOR AR DIAGNOSIS.Performed By: #### CMREP #### [facility] [address] [place] [address] Dr. Walker Glez MACIE ADMITon 87-35-0204OA [Catalytic activity/Vol]114 U/L Kjrvtf83-244GrtKettering Memorial HospitalComment on above:Performed By: #### TSH, LIPID, CMP, URIC, T7, CRP #### [facility] [address] [place] [address] Dr. Walker Burger.MB [Mass/Vol]0.71 ng/mLNormal<=2.37[facility] Comment on above:Performed By: #### TSH, LIPID, CMP, URIC, T7, CRP #### [facility] [address] [place] [address] Dr. Walker FriedmanOP6.1 pg/mLNormal4.0-35.5ThAultman Alliance Community Hospital on above:Result Comment: CUT-OFF POINTS HAVE BEEN ESTABLISHED BASED ON THE FOURTH UNIVERSAL DEFINITIONS OF MYOCARDIAL INFARCTION. THE UPPER REFERENCE LIMIT (URL) OF TROPONIN, DEFINED THE 99TH PERCENTILE OF cTnI DISTRIBUTION IN A REFERENCE POPULATION, HAS BEEN CONFIRMED THE DECISION THRESHOLD FOR AR DIAGNOSIS.Performed By: #### TSH, LIPID, CMP, URIC, T7, CRP #### [facility] [address] [place] [address] Dr. Walker DoradoO43.0 ng/mLNormal<=61.5The [facility] HospitalComment on above: Performed By: #### TSH, LIPID, CMP, URIC, T7, CRP #### [facility] [address] [place] [address] Dr. Walker Hsu AUTO DIFFon 21-18-0151LDFQ #0.0 103/ulNormal0.0-0.1The [facility] HospitalComment on above:Performed By: #### TSH, LIPID, CMP, URIC, T7, CRP #### [facility] [address] [place] [address] Dr. Walker GabrielBasophils/100 WBC (Bld)0.5 %Normal0.2-2.0[facility] Comment on above:Performed By: #### TSH, LIPID, CMP, URIC, T7, CRP #### [facility] [address] [place] [address] Dr. Walker Vaughan #0.0 103/ulNormal0.0-0.7The [facility] Health Systemment on above: Performed By: #### TSH, LIPID, CMP, URIC, T7, CRP #### [facility] [address] [place] [address] Dr. Walker Fregosoosinophils/100 WBC (Bld)0.1 %Critically low0.9-7.0The [facility]ena Health Systemment on above:Performed By: #### TSH, LIPID, CMP, URIC, T7, CRP #### [facility] [address] [place] [address] Dr. Walker Fregosorythrocyte distribution width (RBC) [Ratio]12.3 %Guprzv43.0-15.0 The [facility] HospitalComment on above:Performed By: #### TSH, LIPID, CMP, URIC, T7, CRP #### [facility] [address] [place] [address] Dr. Walker GabrielHematocrit (Bld) [Volume fraction]41.4 %Ajtfld98.0-48.0The [facility] HospitalComment on above:Performed By: #### TSH, LIPID, CMP, URIC, T7, CRP #### [facility] [address] [place] [address] Dr. Walker GabrielHemoglobin (Bld) [Mass/Vol]13.6 g/jIWuelny10.0-16.0The [facility] HospitalComment on above:Performed By: #### TSH, LIPID, CMP, URIC, T7, CRP #### [facility] [address] [place] [address] Dr. Walker Cannon #0.02 10e3/ulNormal0.00-0.03The [facility] HospitalComment on above:Performed By: #### TSH, LIPID, CMP, URIC, T7, CRP #### [facility] [address] [place] [address] Dr. Walker Cannon %0.2 %Normal0.0-0.5The [facility] HospitalComment on above: Performed By: #### TSH, LIPID, CMP, URIC, T7, CRP #### [facility] [address] [place] [address] Dr. Walker Gonzalez #2.6 103/ulNormal1.2-3.8The [facility] HospitalComment on above:Performed By: #### TSH, LIPID, CMP, URIC, T7, CRP #### [facility] [address] [place] [address] Dr. Walker Bynumhocytes/100 WBC (Bld)32.4 %Lromqv65.5-60.0The [facility] Systemment on above:Performed By: #### TSH, LIPID, CMP, URIC, T7, CRP #### [facility] [address] [place] [address] Dr. Walker StricklandUAL DIFF REQNONormalThe [facility] HospitalComment on above: Performed By: #### TSH, LIPID, CMP, URIC, T7, CRP #### [facility] [address] [place] [address] Dr. Walker Gomez (RBC) [Entitic mass]28.8 zjPbyuxb67.7-34.0The [facility] HospitalComment on above:Performed By: #### TSH, LIPID, CMP, URIC, T7, CRP #### [facility] [address] [place] [address] Dr. Walker Cho (RBC) [Mass/Vol]32.9 g/pTLjpwvq95.9-35.2The [facility] HospitalComment on above:Performed By: #### TSH, LIPID, CMP, URIC, T7, CRP #### [facility] [address] [place] [address] Dr. Walker Cho (RBC) [Entitic vol]87.5 rCNmaoki46.0-99.0The [facility] HospitalComment on above:Performed By: #### TSH, LIPID, CMP, URIC, T7, CRP #### [facility] [address] [place] [address] Dr. Walker Painting #0.4 103/ulNormal0.3-0.8The [facility] HospitalComment on above:Performed By: #### TSH, LIPID, CMP, URIC, T7, CRP #### [facility] [address] [place] [address] Dr. Walker Hopkinsocytes/100 WBC (Bld)5.0 %Normal1.7-12.0[facility] Comment on above:Performed By: #### TSH, LIPID, CMP, URIC, T7, CRP #### [facility] [address] [place] [address] Dr. Walker Maher #5.0 103/ulNormal1.4-6.5The [facility] HospitalComment on above:Performed By: #### TSH, LIPID, CMP, URIC, T7, CRP #### [facility] [address] [place] [address] Dr. Walker Henryutrophils/100 WBC (Bld)61.8 %Dikhvs63.0-75.0The [facility] HospitalComment on above:Performed By: #### TSH, LIPID, CMP, URIC, T7, CRP #### [facility] [address] [place] [address] Dr. Walker Foss mean volume (Bld) [Entitic vol]8.4 fLCritically low 9.5-13.5The [facility] HospitalComment on above:Performed By: #### TSH, LIPID, CMP, URIC, T7, CRP #### [facility] [address] [address] [address] Walker GabrielPLT347 103/xeLljoup568-798Bua [facility] on above: Performed By: #### TSH, LIPID, CMP, URIC, T7, CRP #### [facility] [address] [address] [address] Walker GabrielRBC4.73 106/ulNormal4.20-5.40The [facility] on above:Performed By: #### TSH, LIPID, CMP, URIC, T7, CRP #### [facility] [address] [place] [address] Dr. Walker GabrielWBC8.1 103/ulNormal4.0-11.0The [facility] on above: Performed By: #### TSH, LIPID, CMP, URIC, T7, CRP #### [facility] [address] [place] [address] Dr. Walker Gama 88-11-6344ALU0.7 mg/dLNormal<=1.0[facility] Comment on above:Performed By: #### TSH, LIPID, CMP, URIC, T7, CRP #### [facility] [address] [place] [address] Dr. Walker GabrielPROSun CHEM 8 (BAS METB)on 60-33-2924Shyhh gap [Moles/Vol]10.2 mmol/LNormalThe [facility] on above:Performed By: #### TSH, LIPID, CMP, URIC, T7, CRP #### [facility] [address] [place] [address] Dr. Walker GabrielCalcium [Mass/Vol]9.0 mg/dLNormal8.4-10.2The [facility] Comment on above:Performed By: #### TSH, LIPID, CMP, URIC, T7, CRP #### [facility] [address] [place] [address] Dr. Walker GabrielChloride [Moles/Vol]99 mmol/VScuvkb43-481Y[facility] Comment on above:Performed By: #### TSH, LIPID, CMP, URIC, T7, CRP #### [facility] [address] [address] [address] Walker GabrielCO2 [Moles/Vol]26.5 mmol/PGnvhaf31.0-30.0[facility] Comment on above:Performed By: #### TSH, LIPID, CMP, URIC, T7, CRP #### [facility] [address] [address] [address] Walker GabrielCreatinine [Mass/Vol]1.19 mg/dLCritically high0.52-1.04[facility] HospitalComment on above:Performed By: #### TSH, LIPID, CMP, URIC, T7, CRP #### [facility] [address] [place] [address] Dr. Walker FregosoGFR-AF RWANDAN>60Normal>=60The [facility] HospitalComment on above:Performed By: #### TSH, LIPID, CMP, URIC, T7, CRP #### [facility] [address] [place] [address] Dr. Walker FregosoGFR-NON AF JOEDHIKG85 mL/min/1.98j9Caaauxcpgd low>=60The [facility] HospitalComment on above:Performed By: #### TSH, LIPID, CMP, URIC, T7, CRP #### [facility] [address] [place] [address] Dr. Walker GabrielGlucose [Mass/Vol]105 mg/tYRdeixv76-801WssKettering Memorial Hospital Comment on above:Performed By: #### TSH, LIPID, CMP, URIC, T7, CRP #### [facility] [address] [place] [address] Dr. Walker GabrielPotassium [Moles/Vol]3.7 mmol/LNormal3.4-5.0[facility] Comment on above:Performed By: #### TSH, LIPID, CMP, URIC, T7, CRP #### [facility] [address] [place] [address] Dr. Walker GabrielSodium [Moles/Vol]132 mmol/LCritically ldk158-023XlfKettering Memorial HospitalComment on above:Performed By: #### TSH, LIPID, CMP, URIC, T7, CRP #### [facility] [address] [address] [address] Walker GabrielUrea nitrogen [Mass/Vol]15.0 mg/dLNormal7.0-17.0[facility] HospitalComment on above:Performed By: #### TSH, LIPID, CMP, URIC, T7, CRP #### [facility] [address] [address] [address] Walker GabrielUrea nitrogen/Creatinine [Mass ratio]12.6 mg/mgNoProMedica Bay Park HospitalComment on above:Performed By: #### TSH, LIPID, CMP, URIC, T7, CRP #### [facility] [address] [place] [address] Dr. Walker GabrielSEAngela RATE WESTERGRENon 76-26-1555HVI RATE49 mm/hrCritically high <=20The [facility] HospitalComment on above:Performed By: #### TSH, LIPID, CMP, URIC, T7, CRP #### [facility] [address] [place] [address] Dr. Walker GabrielXR CHEST 2 Von [id number] CHEST 2 VEXAMINATION:XR CHEST 2 V INDICATION:Pain COMPARISON:05/22/2020 TECHNIQUE:Frontal and lateral projections of the chest are submitted. FINDINGS: The cardiomediastinal silhouette is not enlarged. The pulmonary vascularity is within normal limits. The lungs are clear based on chest radiography. There is no costophrenic angle blunting. IMPRESSION: Unremarkable plain film examination of the chest. Electronically authenticated by: CANDICE PONCE Date: 2021-09-06 20:51[facility] HospitalYPHILIS SCREENING WITH REFLEXon 04-86-1260JJTSDPSR TOTAL AB Non-ReactiveNormalNONREACTIVELourdes Specialty HospitalComment on above:Result Comment: No significant level of Treponema pallidum antibody detected. Repeat testing in 2 to 4 weeks may be considered if early infection or incubating syphilis infection is suspected.Performed By: #### SYPHR #### [facility] [address] [place], [place] [address]QYNQRHOIA,DIRECTon 20-63-7710Ttfdscowu.indirect [Mass/Vol]0.1 mg/dLNormal0.0 - 0.3[facility] HospitalComment on above:Performed By: #### DBILI #### [address] [id number] AND DIFFERENTIALon 03-05-2021% AUTOMATED IMMATURE GRAN 0.3 %Normal0.0 - 0.9[facility] HospitalComment on above:Result Comment: Immature Granulocyte Count (IG) includes promyelocytes, myelocytes and metamyelocytes but does not include bands. Percent differential counts (%) should be interpreted in the context of the absolute cell counts (cells/L).Performed By: #### CBCDF #### [address] [id number] (Bld) [#/Vol]0.02 10*3/uLNormal0.00 - 0.10[facility] HospitalComment on above:Performed By: #### CBCDF #### [address] [id number]/100 WBC (Bld)0.3 %Normal0.0 - 2.0[facility]ty HospitalComment on above:Performed By: #### CBCDF #### [address] [id number] (Bld) [#/Vol]0.04 10*3/uLNormal0.00 - 0.70[facility] HospitalComment on above:Performed By: #### CBCDF #### [address] [id number]/100 WBC (Bld)0.6 %Normal0.0 - 6.0[facility] HospitalComment on above:Performed By: #### CBCDF #### [address] [id number] distribution width (RBC) [Ratio]12.2 %Wsqxce57.5 - 14.5[facility] HospitalComment on above:Performed By: #### CBCDF #### [address] [id number] (Bld) [Volume fraction]38.3 %Bhwylu34.0 - 46.0[facility] HospitalComment on above:Performed By: #### CBCDF #### [address] [id number] (Bld) [Mass/Vol]12.0 g/aXIqbdkt93.0 - 16.0[facility] HospitalComment on above:Performed By: #### CBCDF #### [address] [id number] (Bld) [#/Vol]2.33 10*3/uLNormal1.20 - 4.80[facility] HospitalComment on above:Performed By: #### CBCDF #### [address] [id number]/100 WBC (Bld)35.6 %Bqkyet07.0 - 44.0[facility] HospitalComment on above:Performed By: #### CBCDF #### [address] [id number] (RBC) [Mass/Vol]31.3 g/dLLow32.0 - 36.0[facility] HospitalComment on above:Performed By: #### CBCDF #### [address] [id number] (RBC) [Entitic vol]93 hFFxhxoi24 - 100[facility] HospitalComment on above:Performed By: #### CBCDF #### [address] [id number] (Bld) [#/Vol]0.34 10*3/uLNormal0.10 - 1.00[facility] HospitalComment on above:Performed By: #### CBCDF #### [address] [id number]/100 WBC (Bld)5.2 %Normal2.0 - 10.0[facility] HospitalComment on above:Performed By: #### CBCDF #### [address] [id number] (Bld) [#/Vol]3.80 10*3/uLNormal1.20 - 7.70[facility] HospitalComment on above:Performed By: #### CBCDF #### [address] [id number]/100 WBC (Bld)58.0 %Kztdjd39.0 - 80.0[facility] HospitalComment on above:Performed By: #### CBCDF #### [address] [id number] (Bld) [#/Vol]221 10*3/pEMojphm120 - 450[facility] HospitalComment on above:Performed By: #### CBCDF #### [address] [id number] x10E12/LNormal4.00 - 5.20[facility] Comment on above:Performed By: #### CBCDF #### [address] [id number] (Bld) [#/Vol]6.6 10*3/uLNormal4.4 - 11.3[facility] HospitalComment on above:Performed By: #### CBCDF #### [address] [id number] PANELon 07-44-5373Fupinze [Mass/Vol]3.6 g/dL Normal3.4 - 5.0[facility] HospitalComment on above:Performed By: #### CMP #### [address] [id number] [Catalytic activity/Vol]77 U/FUisana53 - 110UH [facility] Medical CenterComment on above:Performed By: #### CMP #### [address] [id number] [Catalytic activity/Vol]20 U/LNormal7 - 45UH [facility] Of Burlington CountyComment on above:Result Comment: Patients treated with Sulfasalazine may generate falsely decreased results for ALT.Performed By: #### CMP #### [address] [id number] gap [Moles/Vol]10 mmol/SCocuje70 - 20[facility] HospitalComment on above:Performed By: #### CMP #### [address] [id number] [Catalytic activity/Vol]24 U/LNormal9 - 39[facility] HospitalComment on above:Performed By: #### CMP #### [address] [id number] [Mass/Vol]0.5 mg/dLNormal0.0 - 1.2[facility] HospitalComment on above:Performed By: #### CMP #### [address] [id number] [Mass/Vol]9.2 mg/dLNormal8.6 - 10.3[facility] Of Burlington CountyComment on above:Performed By: #### CMP #### [address] [id number] [Moles/Vol]101 mmol/NHpawmu61 - 107[facility] HospitalComment on above:Performed By: #### CMP #### [address] [id number] [Mass/Vol]0.85 mg/dLNormal0.50 - 1.05[facility] Of Burlington CountyComment on above:Performed By: #### CMP #### [address] [id number]-TVJERMK AM.>60Normal>60[facility] Comment on above:Result Comment: CALCULATIONS OF ESTIMATED GFR ARE PERFORMED USING THE MDRD STUDY EQUATION FOR THE IDMS-TRACEABLE CREATININE METHODS. CLIN CHEM 2007;53:766-72Performed By: #### CMP #### [address] [id number]-SXL AM.>60Normal>60[facility] Comment on above:Performed By: #### CMP #### [address] [id number] [Mass/Vol]75 mg/wFCwrwst92 - 99[facility] HospitalComment on above:Performed By: #### CMP #### [address] [id number] (Bld) [Moles/Vol]30 mmol/HXfojwn10 - 32[facility] HospitalComment on above:Performed By: #### CMP #### [address] [id number] [Moles/Vol]4.1 mmol/LNormal3.5 - 5.3[facility]ty HospitalComment on above:Performed By: #### CMP #### [address] [id number] [Mass/Vol]7.0 g/dLNormal6.4 - 8.2[facility] HospitalComment on above:Performed By: #### CMP #### [address] [id number] [Moles/Vol]137 mmol/LBitfpz497 - 145[facility] HospitalComment on above:Performed By: #### CMP #### [address] [id number] nitrogen [Mass/Vol]21 mg/dLNormal6 - 23[facility] HospitalComment on above:Performed By: #### CMP #### [address] [id number] PANEL,ACUTE (HCFA)on 73-13-8208QEACSBVCL B CORE AB,IGMNon-ReactiveNormalNONREACTIVELourdes Specialty HospitalComment on above: Result Comment: Results from patients taking biotin supplements or receiving high-dose biotin therapy should be interpreted with caution due to possible interference with this test. Providers may contact their local laboratory for further information.Performed By: #### HEPA2 #### [facility] [address] [place], [place] [address]KQCVZGONA C ABNon-ReactiveNormalNONREACTIVELourdes Specialty HospitalComment on above:Result Comment: Results from patients taking biotin supplements or receiving high-dose biotin therapy should be interpreted with caution due to possible interference with this test. Providers may contact their local laboratory for further information.Performed By: #### HEPA2 #### [facility] [address] [place], [place] [address]RMLNQXZQN A PQ-RZIBbb-IkghgzesIawemsFBZUEEOMFSIGEBemidji Medical CenterComtrinity health [place] on above:Result Comment: Biotin interference may cause falsely decreased results. Patients taking a Biotin dose of up to 5 mg/day should refrain from taking Biotin for 24 hours before sample collection. Providers may contact their local laboratory for further information.Performed By: #### HEPA2 #### [facility] [address] [place], [place] [address]VLJ.B SURFACE AGNon-ReactiveNormalNONREACTIVELourdes Specialty HospitalComment on above:Result Comment: Biotin interference may cause falsely decreased results. Patients taking a Biotin dose of up to 5 mg/day should refrain from taking Biotin for 24 hours before sample collection. Providers may contact their local laboratory for further information.Performed By: #### HEPA2 #### [facility] [address] [place], [place] [address]RYE 1/2 ANTIGEN/ANTIBODY SCREEN WITH REFLEX TO CONFIRMATIONon 29-07-8642ZMZ 1/2 AG/AB SCREENNon-ReactiveNormohNONRESt. Vincent's Catholic [facility], ManhattanComtrinity health [place] on above:Result Comment: HIV Ag/Ab screen is performed using the Siemens [employer] HIV Ag/Ab Combo assay which detects the presence of HIV p24 antigen as well as antibodies to HIV-1 (Group M and O) and HIV-2. . No laboratory evidence of HIV infection. If acute HIV infection is suspected, consider testing for HIV RNA by PCR (viral load).Performed By: #### HIV #### [facility] [address] [place], [place] [address]WYIMQBCY SCREENING WITH REFLEXon [id number] Specimen SourceNoLongmont United HospitalComment on above:Performed By: #### SYPHR #### [facility] [address] [place], [place] [address]Swcqabkvu By: #### HEPA2 #### [facility] [address] [place], [place] [address]Khajaplay By: #### HIV #### [facility] [address] [place], [place] [address]COCSCJMJI PANEL,ACUTE (HCFA)on 45-12-4342NNOWKZELL A AB-IGM NONREACTIVEScripps Mercy HospitalComment on above:Result Comment: Biotin interference may cause falsely decreased results. Patients taking a Biotin dose of up to 5 mg/day should refrain from taking Biotin for 24 hours before sample collection. Providers may contact their local laboratory for further information.Performed By: #### HEPA2 #### [facility] [address] [place] [id number] C ABNONREACTIVEScripps Mercy HospitalComtrinity health [place] on above:Result Comment: Results from patients taking biotin supplements or receiving high-dose biotin therapy should be interpreted with caution due to possible interference with this test. Providers may contact their local laboratory for further information.Performed By: #### HEPA2 #### [facility] [address] [place], [place] [address]WPHDUWMXE B CORE AB,IGMNONREACTIVENormDoctors Hospital Of West CovinaComment on above:Result Comment: Results from patients taking biotin supplements or receiving high-dose biotin therapy should be interpreted with caution due to possible interference with this test. Providers may contact their local laboratory for further information.Performed By: #### HEPA2 #### [facility] [address] [place], [place] [address]DCB.B SURFACE AGNONREACTIVEScripps Mercy HospitalComment on above:Result Comment: Biotin interference may cause falsely decreased results. Patients taking a Biotin dose of up to 5 mg/day should refrain from taking Biotin for 24 hours before sample collection. Providers may contact their local laboratory for further information.Performed By: #### HEPA2 #### [facility] [address] [place], [place] [address]GOU ANTIGEN/ANTIBODY SCREENon 75-51-9749VIY AG/AB SCREEN NONREACTIVENormalNONREACTIVERio Grande HospitalComment on above:Result Comment: HIV Ag/Ab screen is performed using the [employer] HIV Ag/Ab Combo assay which detects the presence of HIV p24 antigen as well as antibodies to HIV-1 (Group M and O) and HIV-2.Performed By: #### HIV #### [facility] [address] [place], [place] [address]JMWGJPDV SCREENING WITH REFLEXon 76-52-0821JGHWJRKP TOTAL AB NONREACTIVENormalNONREACTIVERio Grande HospitalComment on above:Result Comment: No significant level of Treponema pallidum antibody detected. Repeat testing in 2 to 4 weeks may be considered if early infection or incubating syphilis infection is suspected.Performed By: #### SYPHR #### [facility] [address] [place], [place] [address]DNPXUQBZE,DIRECTon 27-04-3533Cyriqcwcc.direct [Mass/Vol]0.1 mg/dLNormal0.0 - 0.3[facility] HospitalComment on above:Performed By: #### DBILI #### [address] [id number] 69-79-8443Hqccskmsbxg distribution width (RBC) [Ratio] 12.6 %Rmgovh64.5 - 14.5[facility] HospitalComment on above:Performed By: #### CBC #### [address] [id number] (Bld) [Volume fraction]38.4 %Lfiktt43.0 - 46.0[facility] HospitalComment on above:Performed By: #### CBC #### [address] [id number] (Bld) [Mass/Vol]12.5 g/xFDpjumi40.0 - 16.0[facility] HospitalComment on above:Performed By: #### CBC #### [address] [id number] (RBC) [Mass/Vol]32.6 g/vVDwbhdp31.0 - 36.0[facility] HospitalComment on above:Performed By: #### CBC #### [address] [id number] (RBC) [Entitic vol]88 fXVycnnr45 - 100[facility] HospitalComment on above:Performed By: #### CBC #### [address] [id number] (Bld) [#/Vol]350 10*3/sZPldlqw565 - 450[facility] HospitalComment on above:Performed By: #### CBC #### [address] [id number] (Bld) [#/Vol]4.34 x10E12/LNormal4.00 - 5.20[facility] HospitalComment on above:Performed By: #### CBC #### [address] [id number] (Bld) [#/Vol]5.6 10*3/uLNormal4.4 - 11.3[facility] HospitalComment on above:Performed By: #### CBC #### [address] [id number] PANELon 84-39-5126Glnmkdf [Mass/Vol]4.1 g/dL Normal3.4 - 5.0[facility] HospitalComment on above:Performed By: #### CMP #### [address] [id number] [Catalytic activity/Vol]105 U/LSycfvu14 - 110[facility] HospitalComment on above:Performed By: #### CMP #### [address] [id number] [Catalytic activity/Vol]24 U/LNormal7 - 45[facility] HospitalComment on above:Result Comment: Patients treated with Sulfasalazine may generate falsely decreased results for ALT.Performed By: #### CMP #### [address] [id number] gap [Moles/Vol]10 mmol/MZyuybn43 - 20[facility] HospitalComment on above:Performed By: #### CMP #### [address] [id number] [Catalytic activity/Vol]22 U/LNormal9 - 39[facility] HospitalComment on above:Performed By: #### CMP #### [address] [id number] [Mass/Vol]0.4 mg/dLNormal0.0 - 1.2[facility] HospitalComment on above:Performed By: #### CMP #### [address] [id number] [Mass/Vol]9.1 mg/dLNormal8.6 - 10.3[facility] HospitalComment on above:Performed By: #### CMP #### [address] [id number] [Moles/Vol]101 mmol/EOsdsbr15 - 107[facility] HospitalComment on above:Performed By: #### CMP #### [address] [id number] [Mass/Vol]0.79 mg/dLNormal0.50 - 1.05[facility] HospitalComment on above:Performed By: #### CMP #### [address] [id number]-RMSOWWS AM.>60Normal>60[facility] HospitalComment on above:Result Comment: CALCULATIONS OF ESTIMATED GFR ARE PERFORMED USING THE MDRD STUDY EQUATION FOR THE IDMS-TRACEABLE CREATININE METHODS. CLIN CHEM 2007;53:766-72Performed By: #### CMP #### [address] [id number]-EEN AM.>60Normal>60[facility] Comment on above:Performed By: #### CMP #### [address] [id number] [Mass/Vol]90 mg/iJDpjyxw65 - 99[facility] HospitalComment on above:Performed By: #### CMP #### [address] [id number] (Bld) [Moles/Vol]28 mmol/HKnthgl73 - 32[facility] HospitalComment on above:Performed By: #### CMP #### [address] [id number] [Moles/Vol]4.4 mmol/LNormal3.5 - 5.3[facility] HospitalComment on above:Performed By: #### CMP #### [address] [id number] [Mass/Vol]8.1 g/dLNormal6.4 - 8.2[facility] HospitalComment on above:Performed By: #### CMP #### [address] [id number] [Moles/Vol]135 mmol/GHpf369 - 145[facility] HospitalComment on above:Performed By: #### CMP #### [address] [id number] nitrogen [Mass/Vol]21 mg/dLNormal6 - 23[facility] HospitalComment on above:Performed By: #### CMP #### [address] [id number] SCREENING WITH REFLEXon 44-68-6765Vok Specimen [facility] Medical CenterComment on above:Performed By: #### SYPHR #### [facility] [address] [place], [place] [address]Pbjlnxgeo By: #### HIV #### [facility] [address] [place], [place] [address]Rwdmvigzr By: #### HEPA2 #### [facility] [address] [place], [place] [address]BTYWop 59-53-1314gZQG86.9 gOotbpz44.2-34.4[facility] HospitalComment on above:Result Comment: Performed at [address] [place], [place] [address] ([phone] By: #### CDP, PT, PTT, BNP, BMP, TROPI ####[address] , [place] [address] Basic Metabolic Profon 08-13-2017(cont.)Normal [facility] HospitalComment on above:Result Comment: Average GFR for 30-39 years old: 107 mL/min/1.73sq mChronic Kidney Disease: <60 mL/min/1.73sq mKidney failure: <15 mL/min/1.73sq meGFR calculated using average adult body mass. A dditional eGFR calculator available at:http://www.[employer]/multiple_crcl_2012.htmPerformed By: #### CDP, PT, PTT, BNP, BMP, TROPI ####[address] [place] [address] Anion gap11 mmol/LNormal9-17[facility] HospitalComment on above:Performed By: #### CDP, PT, PTT, BNP, BMP, TROPI ####[address] [place] [address] BUN/CRE Ljytm39Pohs9-09 [facility] HospitalComment on above:Performed By: #### CDP, PT, PTT, BNP, BMP, TROPI ####[address] , [place] [address] Calcium9.6 mg/dLNormal8.6-10.4[facility] HospitalComment on above:Performed By: #### CDP, PT, PTT, BNP, BMP, TROPI ####[address] , [place] [address] Baldiuqn56 mmol/ZZqe65-766LigceOhiohealth Mansfield Hospital Comment on above:Performed By: #### CDP, PT, PTT, BNP, BMP, TROPI ####[address] [place] [address] AF729 mmol/L Mdjwzb07-74QykugOhiohealth Mansfield HospitalComment on above:Performed By: #### CDP, PT, PTT, BNP, BMP, TROPI ####[address] , [place] [address] Lnchdtemgu1.73 mg/dLNormal0.50-0.90[facility] Comment on above:Performed By: #### CDP, PT, PTT, BNP, BMP, TROPI ####[address] , [place] [address] eGFR (non-black) mL/min/{1.73_m2}Normal>60[facility] HospitalComment on above:Performed By: #### CDP, PT, PTT, BNP, BMP, TROPI ####[address] , [place] [address] Glucose mass jqoa947 mg/eWWkkc11-29MmygzCleveland ClinicComment on above:Performed By: #### CDP, PT, PTT, BNP, BMP, TROPI ####[address] [place] [address] Potassium molar conc3.2 mmol/LLow3.7-5.3MSt. Mary's Medical Center HospitalComment on above: Performed By: #### CDP, PT, PTT, BNP, BMP, TROPI ####[address] , [place] [address] Sodium138 mmol/ZYgakkg397-052YusgcSumma Health Akron Campusment on above:Performed By: #### CDP, PT, PTT, BNP, BMP, TROPI ####[address] [place] [address] Staging:[facility] City HospitalComment on above:Result Comment: Stage 1: Some kidney damage normal GFRStage 2: Mild kidney damage GFR 60-89Stage 3: Moderate kidney damage GFR 30-59Stage 4: Severe kidney damage GFR 15-29Stage 5: Severe kidney damage GFR <15ESRD - chronic treatment by dialysis or transplantPerformed at [address] [address] ([phone] By: #### CDP, PT, PTT, BNP, BMP, TROPI ####[address] , [facility]83 Urea eppeinoa99 mg/dLNormal6-20[facility] HospitalComment on above:Performed By: #### CDP, PT, PTT, BNP, BMP, TROPI ####[address] , [place] [address] Brain Natri. Peptideon 31-69-0205OJRju/mLNormal<300[facility] HospitalComment on above:Result Comment: Pro-BNP results cannot be compared to BNP results.Performed By: #### CDP, PT, PTT, BNP, BMP, TROPI ####[address] , [facility]83 BNP NormalSumma Health Akron Campusment on above:Result Comment: Pro-BNP Reference Range:Rule Out: <300[place]rey Zone: Age <50 300-450 Age 50-75 300-900 Age >75 300- 1800Usually represents mild to moderate HF but other cardiopulmonary causes penelope ot be ruled out.Rule In: Age <50 >450 Age 50-75 >900 Age >75 >1800Performed at [address] [place], [place] [address] Performed By: #### CDP, PT, PTT, BNP, BMP, TROPI ####[address] , [place] [address] CBC with Diffon [id number]. Basophil0.00 k/uLNormal0.0-0.2MCleveland ClinicComment on above:Result Comment: Performed at [address] [place], [place] [address] Performed By: #### CDP, PT, PTT, BNP, BMP, TROPI ####[address] , [place] [address] Abs.Neutrophil (Seg)4.50 k/uLNormal1.8-7.7[facility] HospitalComment on above:Performed By: #### CDP, PT, PTT, BNP, BMP, TROPI ####[address] , [place] [address] Basophils/100 WBC Auto (Bld)0 %Normal0-2MCleveland ClinicComment on above:Performed By: #### CDP, PT, PTT, BNP, BMP, TROPI ####[address] , [place] [address] Eosinophils0.20 10*3/uLNormal0.0-0.4[facility] HospitalComment on above: Performed By: #### CDP, PT, PTT, BNP, BMP, TROPI ####[address] , [place] [address] Eosinophils/100 leukocytes2 %Normal0-8 [facility] HospitalComment on above:Performed By: #### CDP, PT, PTT, BNP, BMP, TROPI ####[address] , [place] [address] Erythrocyte distribution width Auto Ratio (RBC)15.0 %Wqzbkj01.1-15.2MCleveland ClinicComment on above:Performed By: #### CDP, PT, PTT, BNP, BMP, TROPI ####[address] , [facility]83 Erythrocytes (RBC)4.75 10*6/uLNormal4.0-5.2MSt. Mary's Medical Center HospitalComment on above:Performed By: #### CDP, PT, PTT, BNP, BMP, TROPI ####[address] , [place] [address] Hematocrit (HCT)41.0 % Kzlzjy05-04UneiqOhiohealth Mansfield HospitalComment on above:Performed By: #### CDP, PT, PTT, BNP, BMP, TROPI ####[address] , [facility]83 Hemoglobin mass conc (Bld)13.7 g/nRDmsecp81.0-16.0[facility] HospitalComment on above:Performed By: #### CDP, PT, PTT, BNP, BMP, TROPI ####[address] , [place] [address] Lymphocytes2.60 10*3/uLNormal1.0-4.8[facility] HospitalComment on above: Performed By: #### CDP, PT, PTT, BNP, BMP, TROPI ####[address] , [facility]83 Lymphocytes/100 pnuorlqppi23 %Normal 24-44[facility] HospitalComment on above:Performed By: #### CDP, PT, PTT, BNP, BMP, TROPI ####[address] , [facility]83 DBP97.8 ajXikayd80-04VjzeiOhiohealth Mansfield HospitalComment on above: Performed By: #### CDP, PT, PTT, BNP, BMP, TROPI ####[address] , [place] [address] MCHC mass conc (RBC)33.4 g/dLNormal 31-37[facility] HospitalComment on above:Performed By: #### CDP, PT, PTT, BNP, BMP, TROPI ####[address] , [place] [address] XCP41.3 fRGkbtrw14-140FrlamOhiohealth Mansfield HospitalComment on above: Performed By: #### CDP, PT, PTT, BNP, BMP, TROPI ####[address] [place] [address] Broprlucv9.40 10*3/uLNormal0.0-1.0 [facility] HospitalComment on above:Performed By: #### CDP, PT, PTT, BNP, BMP, TROPI ####[address] , [place] [address] Monocytes/100 leukocytes6 %Normal0-12[facility] HospitalComment on above: Performed By: #### CDP, PT, PTT, BNP, BMP, TROPI ####[address] , [place] [address] Neutrophil (Seg)58 %Ofhcxy59-63IgrksOhiohealth Mansfield HospitalComment on above:Performed By: #### CDP, PT, PTT, BNP, BMP, TROPI ####[address] , [place] [address] Platelet mean volume (PMV)6.7 fLNormal6.0-12.0[facility] HospitalComment on above:Performed By: #### CDP, PT, PTT, BNP, BMP, TROPI ####[address] , [place] [address] Iedlkwfzq216 10*3/uL Inrtet266-075LmxedOhiohealth Mansfield HospitalComment on above:Performed By: #### CDP, PT, PTT, BNP, BMP, TROPI ####[address] , [place] [address] WBC (Leukocytes)7.7 10*3/uLNormal3.5-11.0[facility] Comment on above:Performed By: #### CDP, PT, PTT, BNP, BMP, TROPI ####[address] [place] [address] Auto Diff PerformedNOT REPORTEDNoKeenan Private HospitalComment on above:Performed By: #### CDP, PT, PTT, BNP, BMP, TROPI ####[address] [place] [address] Erythrocyte morphologyNOT REPORTEDSalem City HospitalComment on above:Performed By: #### CDP, PT, PTT, BNP, BMP, TROPI ####[address] [place] [address] Erythrocytes (RBC)NOT REPORTEDNormBucyrus Community Hospital HospitalComment on above: Performed By: #### CDP, PT, PTT, BNP, BMP, TROPI ####[address] [place] [address] Granulocytes/100 WBC (Bld)NOT REPORTED Normal0.00-0.30[facility] HospitalComment on above:Performed By: #### CDP, PT, PTT, BNP, BMP, TROPI ####[address] , [place] [address] Immature granulocytes #/vol (Bld)NOT JWPSEXFCYjxzey9GvpbyOhiohealth Mansfield HospitalComment on above:Performed By: #### CDP, PT, PTT, BNP, BMP, TROPI ####[address] [place] [address] PlateletsNOT REPORTEDNoKeenan Private HospitalComment on above:Performed By: #### CDP, PT, PTT, BNP, BMP, TROPI ####[address] [facility]83 WBC MorphologyNOT REPORTEDSalem City HospitalComment on above:Performed By: #### CDP, PT, PTT, BNP, BMP, TROPI ####[address] [facility]83 ED Provider Noteon [id number] IP Note OR TranscriptionNoSelect Medical [facility] [id number] Coag RelTime (PPP)0.9 {INR}Normal0.9-1.2MSt. Mary's Medical Center HospitalComment on above:Result Comment: Performed at [address] [place] [address] Performed By: #### CDP, PT, PTT, BNP, BMP, TROPI ####[address] [address] Prothrombin time (PT) Coag time (PPP)9.7 sNormal 9.7-12.2MCleveland ClinicComment on above:Performed By: #### CDP, PT, PTT, BNP, BMP, TROPI ####[address] [address] Troponinon [id number] I.cardiac mass concSalem City HospitalComment on above:Result Comment: Reference Range: <0.03 Within reference range. 0.03-0.09 Possible myocardial damage.Repeat at appropriate intervals to rule out chronic elevation. >= 0.10 Indicative of myocardial damage.Patients with high levels of Biotin oral intake (i.e >5mg/day) may have falsely decreased Troponin T levels. Samples collected within 8 hours of biotin intake may require additional information for diagnosis.Performed at [address] [place] [address] Performed By: #### CDP, PT, PTT, BNP, BMP, TROPI ####[address] [facility]83 Troponin T.cardiac mass concug/LNormal <0.03[facility] HospitalComment on above:Result Comment: Troponin T results cannot be compared to Troponin-I results.Performed By: #### CDP, PT, PTT, BNP, BMP, TROPI ####[address] [place] [address] XR CHEST PORTABLEon [id number] CHEST PORTABLEREPORT: Portable AP radiograph of the chest obtained at 1125 hoursINDICATION: Chest painFINDINGS: The lungs are well expanded and clear bilaterally. No focal consolidation, pleural effusion or pneumothorax seen. Normal cardiac and mediastinal silhouettes. No free intraperitoneal air. Final report el ectronically signed by Sruthi Mo on 08/13/2017 11:50 AMIMPRESSION: Normal chestInterpreted by:RACHEL Haskinsigned by:Sruthi Mo MD08/13/inal resultNormalOhiohealth Mansfield Hospital Vital Signs Date TimeVital SignValuePerforming IgxbvrwsrLieafbbv52-45-3709 14:03-0400Body zlhdiy949.94 cmMD Smiley Urias Work Phone: [phone] [place], [place] 6363710-23-2024 14:03-0400 Body mass index (BMI) [Ratio]46.3 kg/m2MD Smiley Urias Work Phone: [phone] [place], [place] 6363710-23-2024 14:03-0400 Body iepuff292.18 kgMD Smiley Urias Work Phone: [phone] [place], [place] 6363710-23-2024 14:03-0400 Diastolic blood fpbzyyus16 mm[Hg]MD Smiley Urias Work Phone: [phone] [place], [place] 6363710-23-2024 14:03-0400 Heart rate74 /minMD Smiley Urias Work Phone: [phone] [place], [place] 6363710-23-2024 14:03-0400 Respiratory rate12 /minMD Smiley Urias Work Phone: [phone] [place], [place] 636[address]10-23-2024 14:03-0400 Systolic blood lybxwncg154 mm[Hg]MD Smiley Urias Work Phone: [facility]08-08-2022 10:50-0400 Body vhitjy853.9 cmCanabella Romero DO Work Phone: [facility]08-08-2022 10:50-0400Body jueflt065.7 kgChas Romero DO Work Phone: [facility]08-08-2022 10:50-0400Diastolic blood eakttaix84 mm[Hg]Chas Romero DO Work Phone: [facility]08-08-2022 10:50-0400Heart rate66 /min Chas Romero DO Work Phone: [facility]08-08-2022 10:50-1684ZhY7% (BldA) [Mass fraction]98 %Chas Romero DO Work Phone: [facility]08-08-2022 10:50-0400Systolic blood mm[Hg]Chas Romero DO Work Phone: [facility]07-06-2022 11:45-0400Body hfefhv546.57 cmJustin Miracle Other [employer] Other 07-06-2022 11:45-0400Body mass index (BMI) [Ratio] 42.12 kg/e2Boggzn Miracle Other [employer] Other 07-06-2022 11:45-0400Body ocpdvw790.97 kgJustin Miracle Other [facility] Other 05-18-2022 10:45-0400Body yqlpet685.57 cmJustin Miracle Other [employer] Other 05-18-2022 10:45-0400Body mass index (BMI) [Ratio] 42.12 kg/w3Xwfehl Miracle Other [employer] Other 05-18-2022 10:45-0400Body wqnuuo309.97 kgJustramiro Turner Other [facility] Other 05-17-2022 13:49-0400Body toxfyi842.9 cmCanabella Romero DO Work Phone: [facility]05-17-2022 13:49-0400Body kwockh559.62 kgChas Romero DO Work Phone: [facility]05-17-2022 13:49-0400Diastolic blood skrhezun69 mm[Hg]Chas Romero DO Work Phone: [facility]05-17-2022 13:49-0400Heart rate69 /min Chas Romero DO Work Phone: [facility]05-17-2022 13:49-9907FbE2% (BldA) [Mass fraction]100 %Chas Romero DO Work Phone: [facility]05-17-2022 13:49-0400Systolic blood ztvkfewo767 mm[Hg]Chas Romero DO Work Phone: [facility]03-23-2022 11:15-0400Body mlldoy079.57 cmJustin Miracle Other [employer] Other 03-23-2022 11:15-0400Body mass index (BMI) [Ratio] 42.12 kg/n9Idhcjs Miracle Other [facility] [facility] Other 03-23-2022 11:15-0400Body mtvjho328.97 kgJustin Miracle Other [employer] Other 01-26-2022 11:15-0500Body gxbron877.57 cmJustin Miracle Other [employer] Other 01-26-2022 11:15-0500Body mass index (BMI) [Ratio] 47.03 kg/x4Ozhweg Miracle Other [facility] Other 01-26-2022 11:15-0500Body hwyked242.85 kgJustin Miracle Other [facility] Other 12-15-2021 11:00-0500Body xgycgh120.57 cmJustin Miracle Other [facility] Other 12-15-2021 11:00-0500Body mass index (BMI) [Ratio] 46.85 kg/g6Wkkbnj Miracle Other [facility] Other 12-15-2021 11:00-0500Body eiiwhi016.4 kgJustin Miracle Other [facility] Other 11-17-2021 14:00-0500Body ddueoh121.57 cmJustin Miracle Other [facility] Other 11-17-2021 14:00-0500Body mass index (BMI) [Ratio] 42.12 kg/j6Kskmaf Miracle Other [facility] Other 11-17-2021 14:00-0500Body vubzzs693.97 kgJustin Miracle Other [facility] Other 10-20-2021 10:30-0400Body awijvo774.57 cmJustin Miracle Other [facility] Other 10-20-2021 10:30-0400Body mass index (BMI) [Ratio] 42.12 kg/z2Rinyphramiro Turner Other [place] Other 10-20-2021 10:30-0400Body swxwqe913.97 kgJustramiro Turner Other [place] Other Encounters Encounter DateEncounter TypeCare ProviderFacilityStart: 11-16-2024 End: 98-53-9301ozadhrmogcGiau ProviderFacility:[facility]tart: 97-04-9504jjumakrjdiPdzebqyovrk AbdelazizFacility:[facility]: 07-12-2024 End: 49-05-6446mccylfvwibMyksme J LampeFacility:[facility]: 07-12-2024 End: 39-66-6540Qkf Drop offCatherine Willis [facility] Start: 04-20-2024 End: 97-24-8739rbszgdbuivTX Smiley Esparza Hochivo Work Phone: [facility] Work Phone: Start: 04-20-2024 End: 15-15-5073Jljnvbq encounter procedureMD Smiley Hoy Work Phone: [facility] Work Phone: Start: 26-90-9473Xsbvvstrjx RecurringMD Smiley Hoy Work Phone: [facility] CredibleStart: 07-13-2023 End: 47-79-3319ygplgsxdqcLgzttbj Vytautas Giedraitis MDFacility:[facility] [place] Start: 06-15-2023 End: 78-95-0920aktvjfuedxGipokbi Vytautas Giedraitis MDFacility:[facility] Start: 04-27-2023 End: 59-84-3572wdvyymibmwAwduwzy Vytautas Giedraitis MDFacility:[facility] [place] Start: 93-79-0836pxbvvcbhmjCFCLJLTrinity Health System [facility] Campus Start: 30-15-8714gazsjointvXWTJYKettering Health Troytart: 96-05-0687adqvnnmxalETVRDKettering Health Troytart: 01-01-2023 End: 28-81-9266qahznqwmefKYMBAKettering Health Troytart: 24-51-0498vlssfbqlofVORGCUSelect Medical Specialty [facility], Inctart: 52-57-4222bwhuvzkkqeOPRIFTSelect Medical Specialty Hospital [facility], Inctart: 59-06-8948ghduztxxtsJBFMWKettering Health Troytart: 42-52-9619Yukcqdpcv for other preprocedural examinationKettering Health Troytart: 08-22-2022 End: 37-05-4511huhmrptivhPD DOUGLAS HOY .Facility:I6Rfvmm: 09-35-6651wktogkvjak CAROLE HENRYChildren's Hospital of Columbustart: 44-99-8654lswxqnhfbu PARRISH CASTROSycamore Medical Centertart: 07-02-2022 ambulatorySelect Medical Specialty [facility], Inctart: 05-15-2022 End: 16-06-6414dmhrfcjsbwLVYUBUC Medical Centertart: 05-12-2022 End: 22-42-2342rocmrmimnySINGKUC Medical Centertart: 05-05-2022 End: 48-47-0684vjbpycnvotAFXAWUC Medical Centertart: 93-86-5894snlpkxkqcyYOXTZISelect Medical Specialty [facility], Inctart: 04-18-2022 End: 96-55-7511jtnkhapmetVC DOUGLAS HOY .Facility:U9Uygra: 32-63-5128yxevydrkvj MARISA [facility] Hospitaltart: 04-03-2022 End: 08-36-7381pdlfyugtwqOHSJZ EBRAHEIMHighland District Hospitaltart: 04-01-2022 End: 50-86-4254kxakwxnbyaEVDM [facility] Hospitaltart: 99-32-1393ykbuxnymxnTQPOZNN HOYFacility:[facility]tart: 02-03-2022 End: 56-90-1345snbdrekblhLDWRDAC M HOYFacility:[facility] Centertart: 02-03-2022 End: 01-85-1689Hwqgxvw encounter procedureChelsea Zale DO Work Phone: NeurologyComment on above:Right leg weakness (Primary Dx)Start: 01-31-2022 End: 73-06-3816wwafrhqdipBQ SMILEY HOY .Facility:C0Duhll: 88-93-6318Yxzltwxty encounterChelsea Zale DO Work Phone: NeurologyComment on above:ResultsStart: 01-27-2022 End: 53-49-8023hhfnorjlsySE SMILEY HOY .Facility:L1Bqdoa: 01-23-2022 End: 23-27-0748wxonuasermWSYBZYP M HOYFacility:[facility] Centertart: 01-23-2022 End: 40-03-2490rirehvawxmCdb 400) Work Phone: NeurologyComment on above:EMGStart: 01-23-2022 End: 19-60-4771Jrskxsi encounter procedureEmg 2 Neur Rej (Max Weight: 400) Work Phone: [facility]ENTERtart: 01-22-2022 End: 06-53-8257aaoladccbyLH SMILEY HOY .Facility:V8Aqrix: 01-13-2022 End: 47-04-0672uchzxkuavhTZZEYY CRAMERFacility:T2Bgaul: 01-01-2022 End: 53-59-5409fpgcyqieciXkogis Kelley Other [facility] Other Start: 98-26-3006Flqlyp outpatient visit 15 minutes Rolando [facility]ena OrthopedicsStart: 93-78-3304Sjslxlsyu encounterChelsea Zale DO Work Phone: NeurologyComment on above:Insurance Authorization Start: 11-13-2021 End: 21-89-3939pokgpwmmglOvzfli Kelley Other noGuestSpan Other Start: 36-13-0458Fwlohl outpatient visit 15 minutes Rolandoramiro Mena OrthopedicsStart: 11-12-2021 End: 87-86-7437wplaxbjenbPNLNGZN ZALEFacility:[facility] Centertart: 11-12-2021 End: 54-67-8952Pfeyrhm encounter procedureChelsea Zale DO Work Phone: NeurologyComment on above:Right leg weakness (Primary Dx)Start: 90-71-9195Ecjetroar encounterChelsea Zale DO Work Phone: NeurologyComment on above:Received Outside Medical RecordsStart: 10-02-2021 End: 80-09-5437tdbklqxqugYL SMILEY URIAS .Facility:D0Xecrf: 09-30-2021 End: 47-78-3369hojwajcsljCqtazp Kelley Other noGuestSpan Other Start: 54-74-1741Sdudqopuz encounterJustin Andrés Mena OrthopedicsStart: 09-24-2021 End: 06-60-3743lmbhdfcpzhBNIRNLD PROVIDERFacility:METROHealthStart: 09-18-2021 End: 99-98-3970ryabkqzdmqNryaqw Miracle Other noGuestSpan Other Start: 43-42-1679Mrqykd outpatient visit 15 minutes Rolando Mena OrthopedicsStart: 09-06-2021 End: 11-11-3642brgksazxhrEHTBN PARKERFacility:M1Pdbos: 07-24-2021 End: 23-46-7241iqutmzstqyCxopen Miracle Other nortFlyr Other Start: 29-50-9525Dudlno outpatient visit 15 minutes Rolando Andrés Mena OrthopedicsStart: 06-12-2021 End: 01-74-6261hjouhexigrUivrqs Miracle Other [place] Other Start: 44-43-7486Paewmd outpatient visit 15 minutes Rolando KelVerónicaG Yvonne OrthopedicsStart: 05-15-2021 End: 11-81-0907catahbhstsFtfipw Miracle Other noOpen Dynamics [place] Other Start: 46-70-3186Wnkkff outpatient visit 15 minutes Rolando KelVerónicaG Yvonne OrthopedicsStart: 96-22-8745Lruxxj outpatient new 45 minutesJustin AlejandraG Yvonne OrthopedicsStart: 08-13-2017 End: 15-43-3608Ihlaacfdo department patient visitMICOhioHealth [facility] Procedures DateProcedureProcedure DetailPerforming ClinicianStart: 05-80-4127Agtew conduction studies 5-6 studiesChelsea Zale DO Work Phone: Start: 54-40-9195HsqtudqdvcxcxSaovzd Lazaro comment on above:[facility] Dr. Thompsonart: 08-13-2017 Radiologic exam chest single viewMICHAEL FITZPATRICKStart: 28-01-6974QIVLSVCKFXT FITZPATRICKStart: 57-05-2982KVMZL METABOLIC PANELMICHAEL FITZPATRICKStart: 01-83-9922VRVHF NATRIURETIC PEPTIDEMICHAE FITZPATRICKStart: 44-30-8362QLK WITH AUTO DIFFERENTIALMICHAEL FITZPATRICKStart: 80-12-0948WBAFJEJ-INRMICHAEL FITZPATRICKStart: 78-41-4553YQXZTDMQZDBPYDM FITZPATRICKStart: 33-43-4785JRC 12-LEADMICHAEL FITZPATRICKStart: 39-06-4468LJRKND PERIPHERAL IVMICHAEL FITZPATRICKStart: 12-71-7235WPFKJOHVQ MONITORINGMICASCENSION GENESYS HOSPITALZPATRICKStart: 50-13-5766BEIKI SIGNSMICBUCYRUS COMMUNITY [facility]ITAL FITZPATRICKStart: 40-29-2664Wyzuhpq catheterization Catherinekateryna Willis Start: 50-31-7796Dziwh arteriographyTerkateryna Willis cholecystectomyTerkateryna Willis Dilation and curettage of uterus after abortionTerkateryna Willis Plan of Treatment DateCare ActivityDetailAuthorStart: 20-60-4208Ojhsmbhex vaccinationElyria Memorial Hospitaltart: 90-08-9082LFS TESTINGHPV TESTINGElyria Memorial Hospitaltart: 2006 PAP TESTINGPAP TESTINGElyria Memorial Hospitaltart: 89-12-0908Awrwn microalbumin profileDTAP,TDAP,TD (1 - Tdap)[facility] Hospitaltart: 52-47-2975LRUFWP PCP TEAM CHRONIC DISEASE VISITANNUAL PCP TEAM CHRONIC DISEASE VISITElyria Memorial Hospitaltart: 47-22-1025PT CONTROLLED (<130/80)BP CONTROLLED (<130/80)[facility] Hospitaltart: 56-97-7957ELBXQYBOH C SCREENINGHEPATITIS C SCREENINGElyria Memorial Hospitaltart: 87-36-6466NNU SCREENINGHIV SCREENINGElyria Memorial Hospitaltart: 74-86-7813Abmhj depression screening assessmentDEPRESSION SCREENINGElyria Memorial Hospitaltart: 65-96-0954AGQBT-19 VACCINE (#1)COVID-19 VACCINE (#1)[facility] Hospitaltart: 95-08-8394VALMN-19 VACCINE (1)COVID-19 VACCINE (1)[facility] Hospitaltart: 11-06-2913MOVOL-19 VACCINE (#1)COVID-19 VACCINE (#1)[facility] Hospitaltart: 46-67-3450TSIHZJZNL B (1 of 3 - 3-dose series)HEPATITIS B (1 of 3 - 3-dose series)[facility] End: 46-44-2242UCR(NEURO/NI)EMG(NEURO/NI) EMG Routine Right leg weakness 1 Occurrences starting 11/12/2021 until 11/12/2022[facility] Work Phone: Comment on above:1 Occurrences starting 11/12/2021 until 11/12/2022[facility] Payers DatePayer CategoryPayerPolicy [id number] [id number] 2022 [facility] [id number] 2021-Present [phone] [place] [address] [id number] 1.2.840.093850.1.13.159.2.7.3.051861.315 [id number] 2.16.840.4.503586.22772075-92-1885Quzhbfz 1.2.840.180844.1.13.159.2.7.3.220346.38673-51-9142Urfmzo's Compensation [id number]'s Compensation2021MedicaidPARAMOUNT MEDICAID PARAMOUNT ADVANTAGE MEDICAID 2020-Present [phone] [address] [place] [address] Medicaid2021MedicaidPARAMOUNT MEDICAID PARAMOUNT ADVANTAGE MEDICAID [id number] 2020-Present [phone] [address] [place] [address] [id number] 1.2.840.003112.1.13.159.2.7.3.082972.85277-78-6262 [id number] 2.16.840.1.973186.3.579.2.732 [id number] 2.16.840.1.198271.3.57[id number] 2.16.840.1.206712.3.57[id number] 2.16.840.1.899616.3.57[id number] 2.16.840.1.970368.3.57[id number] 2.16840.1.741100.3.57[id number] 2.16840.1.354129.3.57[id number] 2.0.1.804030.3.57[id number] 2.16840.1.982046.3.57[id number] 2.0.1.060038.3.57[id number] 2.16840.1.072964.3.57[id number] 2.0.1.308006.3.57[id number] 2.16840.1.255606.3.57[id number] 2.0.1.619342.3.57[id number] 2.16840.1.946729.3.579.2.727 [id number] 1960Unknown21- 175930 2.1[id number] 2.16.840.1.325747.3.579.2.531Worker's [id number]-[id number]-[id number] Social History DateTypeDetailFacilityStart: 02-61-5810Wamnmtb smoking status NHISSmokes tobacco dailyPromedica Flower Hospital End: 65-01-2936Pqqqihr of tobacco useCigarette SmokerElyria Memorial Hospitaltart: 09-29-2014 End: 74-27-2689Udjeeoyiia smoked current (pack per day) - Reported0.5Cprovidence hospital ClinicStart: 09-29-2014 End: 80-38-9366Nmbrdow use and exposureSmokeless tobacco non-userElyria Memorial Hospitaltart: 03-02-2015 End: 27-12-5823Gwlkqoo intakeCurrent non-drinker of alcohol (finding)[facility] Hospitaltart: 03-23-3555Loo Assigned At [facility] CharlotteNot on fileElyria Memorial Hospitaltart: 04-03-2021 End: 14-88-4394Xqzvwee smoking status NHISEx-smokerPromedica Flower Hospital End: 45-35-9353Mrsoxmf of tobacco useCurrent smokerElyria Memorial Hospitaltart: 11-02-2021 End: 10-99-9072Kaeqbsuk to SARS-CoV-2 (event)Not [facility] Hospitalex Assigned At [facility] Hospitaltart: 77-46-0819Ugg Assigned At [facility] Medical CenterTobacco smoking statusNeTrumbull Regional Medical Center Clinical Notes 04-17-2021 to 07-12-2024 Note Date & TndvKksdDflnorye66-42-3451 Evaluation + Plan note Diagnostic Tests Pending * PAP [id number] 07/12/24 [facility] 09-06-2023 NoteSubjective Patient ID: Nabila Jewell is [...] Cesar Escalante resident in physical medicine and rehabilitation.[facility] 02-23-2023 Note Attestation signed by Jenny Holley [...] improve Chinedu Palacios MD Orthopedic Surgery, PGY-4 [facility] Pager: [phone] 02/23/23 2:00 PM This note was created [...] may be an additional personal documentation from me.[facility]07-17-2023 Note Attestation signed by Jenny Holley MD [...] may be an additional personal documentation from me.[facility]07-07-2023 NoteI called and spoke to the patient for a discharge follow up call following her procedure. The patient is doing well at home. She is taking ASA per orders. She denies any issues with her surgical dressing. I confirmed with the patient that she has a follow up appointment with Dr. Holley.[facility]07-06-2023 NotePatient: Nabila Jewell Procedure Summary Date: 01/01/23 Room / Location: [address] OR Anesthesia Start: 0900 Anesthesia Stop: [...] were no known notable events for this encounter.[facility]07-06-2023 NoteAirway Date/Time: 01/01/2023 9:16 AM Urgency: elective Airway not difficult General Information and Staff Patient location during procedure: OR Anesthesiologist: Han Aguiar MD Resident/MUSKRAT TRAPPER/CAA: TANO Bonenr Performed: other anesthesia staff Learner assisted: Darline [...] approach: 1 Number of other approaches attempted: 0[facility] 01-01-2023 NotePatient: Nabila Jewell Procedure Information Date/Time: 01/01/23 0930 Procedures: KNEE ARTHROSCOPY WITH (Left: Knee) SAUCERIZATION OF DISCOID MENISCUS AND CHONDROPLASTY OF TROCHLEA (Left: Knee) Location: [facility] OR [address] [place] [address] OR Surgeons: Jenny Holley MD Echo complete W/O contrast Order: [id number] Narrative ?Left Ventricle: Systolic function is normal [...] 09:51 Last Resulted: 07/12/19 12:35 Received From: [employer] Result Received: 03/31/22 20:06 View Encounter ??? [...] with medical student and CAA. Additional Equipment RequestsUnOhioHealth Mansfield Hospital06-13-2023 Note Called to confirm appointment with dietitian scheduled for 12/10; pt request to cancel appointment at this time.[facility]06-05-2023 Note Attestation signed by Pascual Uribe MD [...] a 37 y.o. female who presents to [facility] today for [facility] post-concussion syndrome follow up HPI: Patient [...] tablet by mouth in (more content not included)...[facility] 09-29-2022 Note Attestation signed by Pascual Uribe [...] - Medication refill was given Erika Damon MS3[facility]03-20-2023 NoteOrthopedic Surgery Subjective Chief complaint: Chief Complaint Patient presents with Left Knee - Pain 09/15/22 Nabila Jewell is a 37 year old female who presents for follow up evaluation of her left knee. The pain is unchanged and she would like to undergo surgery. 08/22/2022: Conservative measures have not provided buttermaker continuous churn relief, seen today with complaints of left knee pain. PT, medications and CSI have not provided half-way relief. 07/02/22 steroid injection at previous visit [...] -Patient reports conservative measures are not providing buttermaker continuous churn relief for left knee pain. She would like to undergo surgical repair - Consent for left knee arthroscopy has been obtained -Plan L knee chondroplasty trochlea and partial lateral meniscectomyKettering Health [facility]02-23-2023 NoteOrthopedic Surgery Subjective Chief complaint: Chief Complaint Patient presents with Left Knee - Pain 08/22/22 Conservative measures have not provided buttermaker continuous churn relief, seen today with complaints of left knee pain. PT, medications and CSI have not provided half-way relief. 07/02/22 steroid injection at previous visit [...] patient's left knee was brought in from [facility] on a CD disc that was [...] -Patient reports conservative measures are not providing buttermaker continuous churn relief in regard to her left knee. Refer to Dr Holley for opinion.[facility]02-08-2023 NoteAdult Nutrition Assessment Name: Nabila Jewell Date: [...] Needs: Needs based on: IBW Calorie Needs: 2057-9019 kcal/day (25-30 kcal/kg) Protein Needs: 65 g/day [...] to 2000 mg/day -Wt loss 1-2 lb/wk Prison Goals: -Wt loss 10% Pt scheduled follow-up appointment with RD for December 10 @ 11 am. Encouraged pt to check with insurance for coverage prior to appointment. Time Spent With Pt: 10:00 - 11:30 amUnOhioHealth Mansfield Hospital 07-31-2022 NoteCalled pt to confirm appointment with RD on 08/06/22. She is interested in attending appointment - fax sent to primary care physician (Dr. Urias) and requested for referral with nutrition related diagnosis.[facility]01-04-2023 NoteSubjective Patient ID: Nabila Jewell is a 36 y.o. female. Headache Leg Pain this patient is a 36-year-old female who sustained a work-related head injury. She continues with postconcussive syndrome. At her last visit we did start her on nabumetone been helping her headaches. They lessen the intensity. She continues with physical therapy here at [facility]. She has not yet been returning [...] documentation. Additional Comments: Seen on medical student todayKettering Health [facility]11-17-2022 Note Attestation signed by Rufino Perdomo MD [...] patient's left knee was brought in from [facility] on a CD disc that was [...] evaluation Sixto Durham MD PGY-4 Orthopedic Surgery [facility] By using the attestations below, the [...] may be an additional personal documentation from me.[facility]11-02-2022 Note ASSESSMENT/PLAN: Nabila was seen today for [...] a 36 y.o. female who presents to [facility] today for Workers Compensation [...] strength 5/5, R (more content not included)... [facility]11-02-2022 NoteI saw and evaluated the patient, participating in the mc portions of the service. I reviewed the resident???s note. I agree with the resident???s findings and plan. Pascual Uribe MDKettering Health [facility]10-20-2022 Note Attestation signed by Marisa Carter PhD at 04/17/2022 7:11 PM I supervised all aspects of this evaluation. [facility] - NEUROPSYCHOLOGY [address] [place] [address] Ms. Nabila Jewell was seen via [employer] Web[employer] and then Telephone to discuss the neuropsychological evaluation. We discussed the results, their implications, applicable diagnoses, and recommendations. All questions were answered. At this time, she is discharged from the Neuropsychology service. A copy of these results will be available to her via [facility] Fluential or through contacting the Dept. of Health Information Management ([facility]) at [phone]. Contact the Neuropsychology Clinic at [phone] with questions. Linda Topete, PhD Clinical Psychology NeuropsychologyKettering Health [facility]10-20-2022 Note Attestation signed by Marisa Carter PhD at 04/22/2022 1:40 PM I supervised all aspects of this service. 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 She recalls multiple details of events [...] of the fall, but that a waiter/waitress economy class came in to assist her and a team supervisor was also called, who in turn called EMS. Ms. Jewell reports she was transported to [facility] in [place], [place], and adds a few memories of [...] seen as a new patient for a [place] of Worker's Compensation claim related to concussion [...] also includes a 02/03/22 visit note from [facility] Neurology with Chas Romero DO (Neuromuscular [...] 2020 injury. Review of medical records from [facility] on 11/12/21 indicate additional history of [...] but previously saw Dr. Carole Caba at [facility]. She reports she currently follows with Wendy Rubio CNP at [facility]. She reports no history of psychological or neuropsychological evaluation, and no history of psychiatric hospitalization. SUBSTANCE USE: Ms. Jewell reports no current use of alcohol and no history of significant alcohol use. She reports no illicit drug use (more content not included)...[facility]10-06-2022 Note Attestation signed by Rufino Perdomo MD [...] patient's left knee was brought in from [facility] on a CD disc that was [...] 50 mg Route injection Administered By Oanh Goisn RN triamcinolone acetonide (Kenalog) injection 20 mg [...] PGY-2 04/03/22 10:18 AM (more content not included)...[facility]10-04-2022 [id number] Nabila Jewell 1985 F Date Provider Department Center 04/01/2022 513-MARISA CARTER [facility] RE[facility] PSY Medical Pavi No family history on file Reason for Visit and Comments: Concussion [[id number]][facility]10-04-2022 Note Attestation signed by Marisa Carter, PhD at 04/01/2022 1:03 PM I participated in and supervised all aspects of this service. REVIEWED BY: Marisa Carter, PhD, ABPP Board Certified Clinical Neuropsychologist [facility] - NEUROPSYCHOLOGY [address] [facility] [address] Ms. Nabila Jewell was seen for a neuropsychological evaluation on 04/01/2022. A report describing the results of this evaluation will be posted after the follow-up appointment is completed. Linda Topete, PhD Clinical Psychologist Neuropsychology FellowKettering Health Troy10-04-2022 NoteMsAubrey Jewell has a follow-up appointment on 04/17/2022 with Linda Topete, PhD & Marisa Carter PhD ABPP in Neuropsychology, to discuss the results of the evaluation on 04/01/2022. This appointment will be conducted via [employer]. [facility]08-08-2022 NoteHNO ID: [id number] Author: Chas Romero, DO Service: ? Author Type: Physician Type: Progress Notes Filed: 02/03/2022 11:27 AM Note Text: Neuromuscular Clinic Follow up Visit SERVICE DATE: 02/03/2022 PCP: Smiley Urias MD [address] [place] [id number] Reason for Evaluation: Consultation requested by Self for an opinion regarding right leg weakness Family/Friend accompanying the patient today: none HPI: This is Ms. Nabila Jewell, a 36 year old female who presents to the [facility] with the chief complaint above. 02/03/2022: [...] get up after this. She went to [facility] in [place]. She was evaluated and did testing and [...] No significant dysarthria M (more content not included)...[facility]08-08-2022 History of Present illness Narrative* Chas Romero DO - 02/03/2022 11:00 AM EDT Neuromuscular Clinic Follow up Visit SERVICE DATE: 02/03/2022 PCP: Smiley Urias MD [address] [place] [address] Reason for Evaluation: Consultation requested by Self for an opinion regarding right leg weakness Family/Friend accompanying the patient today: none HPI: This is Ms. Nabila Jewell, a 36 year old female who presents to the [facility] with the chief complaint above. 02/03/2022: [...] get up after this. She went to [facility] in [place]. She was evaluated and did testing and [...] which included preparing to see the patient, vycj-yo-ywvr patient care, completing clinical documentation, obtaining and/or reviewing separately obtained history, performing a medically appropriate examination, and counseling and educating the patient/family/caregiver. documented in this encounterPromedica Flower Hospital08-04-2022 Miscellaneous Notes* Telephone Encounter - Chas Romero DO - 01/30/2022 10:43 AM EDT I called patient and communicated results of EMG testing, all questions answered. Advised her that she does not need to follow up with me. Chas Romero DO documented in this encounterPromedica Flower Hospital07-28-2022 NoteHNO ID: [id number] Author: Sofi Hernandez MD Service: ? Author [...] applicable. [facility]G Tech Sofi Hernandez, [facility]07-28-2022 History of Present illness Narrative* Sofi [...] Tech Sofi Hernandez MD documented in this encounterPromedica Flower Hospital07-19-2022 NotePROCEDURE: XR KNEE LT 4V or [...] Electronically authenticated by: PASCUAL GAMBLE Date: 2022-01-14 12:01[facility]07-06-2022 Evaluation note* Encounter Date Diagnosis Assessment [...] 3 months if needed Continue restrictions-off work. [facility] Other 06-10-2022 Miscellaneous Notes* Telephone Encounter - Sky Dionte - 12/06/2021 11:31 AM EDT Relationship to patient: Self Reason for call (non-seizure related) Patient called asking about status of prior authorization forE order Patient of Dr. Romero documented in this encounterPromedica Flower Hospital05-18-2022 Evaluation note* Encounter Date Diagnosis Assessment [...] patient tolerated well with no adverse reactions. [facility] Other 05-17-2022 NoteHNO ID: [id number] Author: Chas Romero, DO Service: ? Author Type: Physician Type: Progress Notes Filed: 11/12/2021 2:58 PM Note Text: Neuromuscular Clinic New Patient Visit SERVICE DATE: 11/12/2021 PCP: Smiley Urias MD [address] [place] [address] Reason for Evaluation: Consultation requested by Self for an opinion regarding right leg weakness Family/Friend accompanying the patient today: none HPI: This is Ms. Nabila Jewell, a 36 year old female who [facility] with the chief complaint above. She had an injury at work (March 2021)-she fell and hit her head on a prep table and fell onto her knee. She had difficulty moving to get up after this. She went to [facility] in [place]. She was evaluated and did testing and [...] Hip abduction 4+ ([facility] (more content not included)...[facility]05-17-2022 Instructions* Patient Instructions* Chas Romero DO - 11/12/2021 2:47 PM EDT You were seen today for right leg weakness, I ordered EMG to assess for this. Continue physical therapy exercises. documented in this encounterPromedica Flower Hospital05-17-2022 History of Present illness Narrative* Chas Romero DO - 11/12/2021 2:00 PM EDT Neuromuscular Clinic New Patient Visit SERVICE DATE: 11/12/2021 PCP: Smiley Urias MD [address] [place] [address] Reason for Evaluation: Consultation requested by Self for an opinion regarding right leg weakness Family/Friend accompanying the patient today: none HPI: This is Ms. Nabila Jewell, a 36 year old female who [facility] with the chief complaint above. She had an injury at work (March 2021)-she fell and hit her head on a prep table and fell onto her knee. She had difficulty moving to get up after this. She went to [facility] in [place]. She was evaluated and did testing and [...] which included preparing to see the patient, [id number] patient care, completing clinical documentation, obtaining and/or reviewing separately obtained history, performing a medically appropriate examination, counseling and educating the pat ient/family/caregiver and ordering medications, tests, or procedures. documented in this encounterPromedica Flower Hospital04-26-2022 Miscellaneous Notes* Telephone Encounter - Sky Rapp - 10/22/2021 10:54 AM EDT Referral, medical records received and scanned in for review. documented in this encounterPromedica Flower Hospital03-23-2022 Evaluation note* Encounter Date Diagnosis Assessment Notes Treatment Notes Treatment Clinical Notes Aug, Sprain of unspecifie d site of right knee, initial encounter (ICD-10 - S83.91XA) Continue physical therapy with approval [facility] and referral to neurology for knee [...] pain. Continue restrictions-off work, Continue with therapy [facility] Other 01-26-2022 Evaluation note* Encounter Date Diagnosis [...] pain. Continue restrictions-off work, Continue with therapy [facility] Other 12-15-2021 Evaluation note* Encounter Date Diagnosis [...] on the affected leg. Continue off work [facility] Other 11-17-2021 Evaluation note* Encounter Date Diagnosis [...] She has seen an occupational physician at [place] who is ordered ahinged knee brace for [...] weeks therapy. Apply for for cortisone injection. [facility] Continue off work [facility] Other 10-20-2021 Evaluation note* Encounter Date Diagnosis [...] will submit for an MRI approval throught [facility]. Continue off of work. Mar,OtherSee orders for this visit as documented in the electronic medical record. [facility] Other Evaluation note* Diagnosis Right leg weakness- Primary Other musculoskeletal symptoms referable to limbs documented in this encounter [facility] HospitalEvalunemours foundation noteNo InformationNort [place] Other Evaluation note* Diagnosis Right leg weakness Other musculoskeletal symptoms referable to limbs documented in this encounter [facility] HospitalEvalunemours foundation note* Diagnosis Right leg weakness- Primary Other musculoskeletal symptoms referable to limbs documented in this encounter [facility] HospitalEvaluation note* Diagnosis Onset Date Resolution Status Pre-employment examination [facility] Work Phone: History general Narrative - Reported* Type Description Date Medical History Chronic back pain Medical HistoryHTNMedical HistoryAnxietySurgical HistorycholecystectomySurgical HistoryC section x 2Surgical Historypilonidal cystHospitalization HistoryHTN [facility] Other History general Narrative - Reported* Type Description Date Medical History Chronic back pain Medical HistoryHTNMedical HistoryAnxietySurgical HistorycholecystectomySurgical HistoryC section x 2Surgical Historypilonidal cystHospitalization HistoryHTN Hospitalization Historysee surgeries [facility] Other Hospital course Narrative No data available for this section [facility] Discharge instructions No data available for this section [facility] Progress note No data available for this section [facility] Reason for referral (narrative)* Outpatient Procedure (Routine) - AuthorizedSpecialtyDiagnoses / ProceduresReferred By Contact Referred To ContactNEUROLOGICAL INSTITUTE Diagnoses Right leg weakness Procedures EMG(NEURO/NI) NERVE CONDUCTION STUDIES 9-10 STUDIES Chas Romero DO [facility] [place] [address] [facility] [place] [address] [place] [address] Referral IDStatusReasonStart DateExpiration DateVisits RequestedVisits [id number] Auto-Generated Referral [facility] for referral (narrative)* Reason referral for neurolo gy for weakness of the right knee and second opinion Diagnosis 1 Sprain of unspecifie d site of right knee, initial encounter (S83.91XA) Referral Organization [facility] Referring Provider First Name Rolando Referring Provider Last Name Miracle Referring Provider Specialty Orthopedic Surgery Referred Organization Unknown Facility Referred Provider Specialty Neurology Referral Priority Routine [facility] Other Summary Purpose Family History No Family History Records Found Relationship Condition Age at Onset Recorded Date/T laurita father Unknown Advance Directives No Advanced Directives Records Found Advance Directive Response Recorded Date/ Time Advance Directives No April 12, 2021 8:42pm Chief Complaint and Reason for Visit Chief Complaint BH Manager Generation PhysicalReason for VisitPre-employment examination Additional Source Comments INFORMATION SOURCE (unrecogn ized section and content) DATE CREATED AUTHOR 12/18/2017 [facility] DATE CREATED AUTHOR AUTHOR'S ORGANIZ ATION 03/02/2020 [facility] DATE CREATED AUTHOR AUTHOR'S ORGANIZ ATION 03/06/2021 [facility] DATE CREATED AUTHOR AUTHOR'S ORGANIZ ATION 09/29/2021 [facility] DATE CREATED AUTHOR AUTHOR'S ORGANIZ ATION 03/06/2022 [facility] DATE CREATED AUTHOR AUTHOR'S ORGANIZ ATION 04/04/2022 [facility] DATE CREATED AUTHOR AUTHOR'S ORGANIZ ATION 08/29/2022 [facility] DATE CREATED AUTHOR AUTHOR'S ORGANIZ ATION 03/08/2023 [facility] DATE CREATED AUTHOR AUTHOR'S ORGANIZ ATION 07/22/2023 [facility] DATE CREATED AUTHOR AUTHOR'S ORGANIZ ATION 07/15/[address] [facility] DATE CREATED AUTHOR AUTHOR'S ORGANIZ ATION 07/31/[address] [facility] DATE CREATED AUTHOR AUTHOR'S ORGANIZ ATION 09/23/2024 [facility] DATE CREATED AUTHOR AUTHOR'S ORGANIZ ATION 12/15/2024 [facility] Source Comments (unrecognize d section and content) In the event this informatio n is protected by the Federal Confidentiality of Alcohol and Drug Abuse Patient Records regulations: The Federal rules restrict any use of the information to criminally investigate or prosecute any alcohol or drug abuse patient.[facility] F[facility] HospitalIn the event this information is protected by the Federal Confidentiality of Alcohol and Drug Abuse Patient Records regulations: The Federal rules restrict any use of the information to criminally investigate or prosecute any alcohol or drug abuse patient.[facility] HospitalIn the event this information is protected by the Federal Confidentiality of Alcohol and Drug Abuse Patient Records regulations: The Federal rules restrict any use of the information to criminally investigate or prosecute any alcohol or drug abuse patient.[facility] HospitalIn the event this information is protected by the Federal Confidentiality of Alcohol and Drug Abuse Patient Records regulations: The Federal rules restrict any use of the information to criminally investigate or prosecute any alcohol or drug abuse patient.[facility] HospitalIn the event this information is protected by the Federal Confidentiality of Alcohol and Drug Abuse Patient Records regulations: The Federal rules restrict any use of the information to criminally investigate or prosecute any alcohol or drug abuse patient.[facility] HospitalIn the event this information is protected by the Federal Confidentiality of Alcohol and Drug Abuse Patient Records regulations: The Federal rules restrict any use of the information to criminally investigate or prosecute any alcohol or drug abuse patient.[facility] Reason for Visit (unrecogniz ed section and content) ReasonCommentsReceived Outside Medical RecordsReasonCommentsNew Patient Musculoskeletal ProblemRT lower extremitiesReasonCommentsInsurance Authorization ReasonCommentsEMGSpecialtyDiagnoses / ProceduresReferred By ContactReferred To ContactNEUROLOGICAL INSTITUTE Diagnoses Right leg weakness Procedures EMG(NEURO/NI) NERVE CONDUCTION STUDIES 9-10 STUDIES Chas Romero DO [address] [id number] [facility] [place] [address] [place] [address] Referral IDStatusReasonStart DateExpiration DateVisits RequestedVisits [id number] Auto-Generated Referral [id number] PatientFollow Up Visit Care Teams (unrecognized sec tion and content) Team MemberRelationshipSpecialtyStart DateEnd Smiley Urias MD PCP - GeneralFamily Practice03/02/14 Serafin Bartlett, DO [address] [place] [phone] AnogekxvfMqtcnxfxf54/17/19 Rolando Turner, DO [address] [place] [address] ReferringOrthopedics10/11/21Team MemberRelationshipSpecialtyStart DateEnd Date Smiley Urias MD PCP - GeneralFamily Practice03/02/14 Serafin Bartlett, DO [address] [phone] CwlxcporhLmfdppbdu47/17/19 Rolando Turner, DO [address] [place] [address] ReferringOrthopedics10/11/21Team MemberRelationshipSpecialtyStart DateEnd Date Smiley Urias MD PCP - GeneralFamily Practice03/02/14 Serafin Bartlett, DO [address] [phone] VjgybjeobGefhenyge42/17/19 Rolando Turner, DO [address] [place] [address] ReferringOrthopedics10/11/21 Zehra Holly, BARN MANAGER [address] [place] [phone] ReferringFamily Practice11/19/21Team MemberRelationshipSpecialtyStart DateEnd Date Smiley Urias MD PCP - GeneralFamily Practice03/02/14 Serafin Bartlett, DO [address] [place] [phone] AradnfylrFjzbsdrtl62/17/19 Rolando Turner, DO [address] [place] [address] ReferringOrthopedics10/11/21 Zehra Holly, BARN MANAGER [address] [facility] [place] [phone] ReferringFamilford regional medical center Practice11/19/21Team MemberRelationshipSpecialtyStart DateEnd Date Smiley Urias MD PCP - GeneralFamily Practice03/02/14 Serafin Bartlett, DO [address] [place] [phone] MianjnjemWosfwhkah78/17/19 Rolando Turner, DO [address] [place] [address] ReferringOrthopedics10/11/21 Zehra Holly, BARN MANAGER [address] [facility] [place] [address] ReferringFamilford regional medical center Practice11/19/21 Team Status: Active Member [...] BE BASED ON THE PRIMARY CLINICAL RECORDS. [facility] [employer] [facility] provides no warranty or guarantee of the accuracy or completeness of information in this document.
[2025-05-31 12:22] LABS: Hematocrit 43.4 % (36.0-48.0); Hemoglobin 14.4 g/dL (12.0-16.0); Immature Granulocytes Abs Auto 0.01 10^3/uL (0.00-0.03); Immature Granulocytes Pct Auto 0.1 % (0.0-0.5); Lymphocytes Absolute Auto 1.6 10^3/uL (1.2-3.8); Mean Corpuscular HGB Conc 33.2 g/dL (29.9-35.2); Mean Corpuscular Hemoglobin 29.7 pg (26.7-34.0); Mean Corpuscular Volume 89.5 fL (81.0-99.0); Platelet Count 345 10^3/uL (150-450); Red Blood Count 4.85 10^6/uL (4.20-5.40); White Blood Count 7.6 10^3/uL (4.0-11.0)
[2025-05-31 12:53] LABS: Alanine Aminotransferase 20 U/L (14-59); Albumin Globulin Ratio 0.8; Albumin Level 3.8 g/dL (3.4-5.0); Alkaline Phosphatase 100 U/L (46-116); Anion Gap 11.6; Aspartate Amino Transferase 16 U/L (15-37); Blood Urea Nitrogen 18.0 mg/dL (7.0-18.0); Calcium 9.3 mg/dL (8.5-10.1); Carbon Dioxide 30.0 mmol/L (21.0-32.0); Chloride 102 mmol/L (98-107); Cholesterol 184 mg/dL (<=200); Estimated GFR (African America >60 (>=60 mL/min/1.73m^2); Estimated GFR (Non-African Ame 53 (>=60 mL/min/1.73m^2); Free T3 2.37 pg/mL (2.18-3.98); Globulin 4.5 g/dL; Glucose 101 mg/dL (74-106); HDL Cholesterol 61 mg/dL (40-60); Potassium 4.6 mmol/L (3.5-5.1); Sodium 139 mmol/L (136-145); Thyroid Stimulating Hormone 0.790 uIU/mL (0.358-3.740); Total Protein 8.3 g/dL (6.4-8.2); Triglycerides 64 mg/dL (<=150); VLDL CHOLESTEROL 12.8 mg/dL
[2025-05-31 13:38] LABS: Iron 78.0 ug/dL (50.0-170.0)
== END 2025-05-31 11:55 | disposition home or self-care (01) ==
LOC: LAB 11:57
PROVIDERS: PCP Family Medicine; Visit Provider Family Medicine
DX: Z00.00 Encounter for general adult medical examination without abnormal findings (principal)
CPT/HCPCS: 36415; 80053; 80061; 82306; 83036; 83525; 83540; 84436; 84443; 84481; 85025